=== PATIENT | male | born 1945 | race Caucasian/White ===

== ENCOUNTER 2016-10-13 11:59 | Inpatient (IN) | payer MEDICARE ==
[2016-10-13] MEDS ORDERED: IPRATROPIUM-ALBUTEROL 3 ML NEB INHALATION STA (12:28)
[2016-10-13 13:03] LABS: Partial Thromboplastin Time 24.4 sec (22.0-30.0); Prothrombin Time 10.2 sec (9.0-12.0)
[2016-10-13 13:04] LABS: ALT 47 U/L (21-72); AST 27 U/L (17-59); Alkaline Phosphatase 59 U/L (38-126); Anion Gap 10 mmol/L; Blood Urea Nitrogen 29 mg/dL (9-20); Calcium 9.9 mg/dL (8.4-10.2); Carbon Dioxide 31 mmol/L (22-30); Chloride 98 mmol/L (98-107); Glucose 157 mg/dL (74-99); Magnesium 1.9 mg/dL (1.6-2.3); Non-African American GFR(MDRD) 55 (>60 ml/min/1.73 sqM); Potassium 4.6 mmol/L (3.5-5.1); Sodium 139 mmol/L (137-145); Total Bilirubin 1.6 mg/dL (0.2-1.3); Total Protein 6.9 g/dL (6.3-8.2)
--- NOTE | 2016-10-13 13:25 | XR ---
EXAMINATION TYPE: XR chest 2V DATE OF EXAM: 10/13/2016 1:14 PM COMPARISON: 06/23/14 HISTORY: Shortness of breath TECHNIQUE: Frontal and lateral views of the chest are obtained. FINDINGS: Scattered senescent parenchymal changes noted. Hyperinflation compatible with COPD. No evidence for infiltrate. No evidence for atelectasis. Heart size is stable. Mediastinal structures are stable and grossly unremarkable. No evidence for hilar prominence. Degenerative changes dorsal spine. IMPRESSION: 1. No evidence for acute pulmonary disease.
--- NOTE | 2016-10-13 13:31 | ED ---
General Adult HPI - General Chief complaint: Shortness of Breath Stated complaint: theresa, wheezing Time Seen by Provider: 10/13/16 12:08 Source: patient, RN notes reviewed Mode of arrival: wheelchair Limitations: no limitations - History of Present Illness Initial comments: 71-year-old male presents emergency Department chief complaint shortness of breath, wheezing. Patient states she's been short of breath last 5 months ever since he's been sick. Patient states that symptoms are getting much worse at this time. Patient does see waste picker Dr. Rodriguez and recently has seen coronary care unit nurse which he had an echo, EKG and stress test. Patient states she's been seen his primary care physician who has been given shots of steroids, antibiotics with no relief. Patient saw his primary care physician today who sent emergency department. Patient denies fever, chills. Patient states he has no sinus congestion denies sore throat, ear pain. Denies any abdominal pain including nausea, vomiting, diarrhea constipation. - Related Data Home Medications Medication Instructions Recorded Confirmed Metoprolol Tartrate [Lopressor] 25 mg PO BID 06/23/14 10/13/16 Simvastatin [Simvastatin] 20 mg PO HS 06/23/14 10/13/16 Aspirin EC [Ecotrin Low Dose] 81 mg PO DAILY 10/13/16 10/13/16 Olmesartan/Hydrochlorothiazide 1 tab PO DAILY 10/13/16 10/13/16 [Benicar Hct 40-25 mg Tablet] amLODIPine [Norvasc] 5 mg PO DAILY 10/13/16 10/13/16 predniSONE See Taper PO DAILY 10/13/16 10/13/16 Allergies Allergy/AdvReac Type Severity Reaction Status Date / Time No Known Allergies Allergy Verified 10/13/16 12:14 Review of Systems ROS Statement: Those systems with pertinent positive or pertinent negative responses have been documented in the HPI. ROS Other: All systems not noted in ROS Statement are negative. Past Medical History Past Medical History: Coronary Artery Disease (CAD), Chest Pain / Angina, Hypertension, Myocardial Infarction ([place]), Pneumonia, Sleep Apnea/CPAP/BIPAP Last Myocardial Infarction Date:: 2011 History of Any Multi-Drug Resistant Organisms: None Reported Past Surgical History: Cholecystectomy, Heart Catheterization With Stent, Hernia Repair Additional Past Surgical History / Comment(s): UMBILICAL HERNIA REPAIR. Past Anesthesia/Blood Transfusion Reactions: No Reported Reaction Date of Last Stent Placement:: 2011 Past Psychological History: No Psychological Hx Reported Smoking Status: Never smoker Past Alcohol Use History: None Reported Past Drug Use History: None Reported - Past Family History Father Family Medical History: CVA/TIA, Hypertension, Myocardial Infarction ([place]) Additional Family Medical History / Comment(s): AT AGE 73-[place] Mother Family Medical History: Dementia, Renal Disease Additional Family Medical History / Comment(s): AT AGE 56 COMPLICATIONS FROM DIABETES General Exam Limitations: no limitations General appearance: alert, in no apparent distress Head exam: Present: atraumatic, normocephalic, normal inspection ENT exam: Present: normal exam, normal oropharynx, mucous membranes moist Neck exam: Present: normal inspection, full ROM. Absent: tenderness, meningismus, lymphadenopathy Respiratory exam: Present: wheezes (Bilateral and audible). Absent: normal lung sounds bilaterally, respiratory distress, rales, rhonchi, stridor Cardiovascular Exam: Present: regular rate, normal rhythm, normal heart sounds. Absent: systolic murmur, diastolic murmur, rubs, gallop, clicks Course Vital Signs 10/13/16 10/13/16 10/13/16 12:06 12:40 12:53 Temperature 98.1 F Pulse Rate 74 74 79 Respiratory 24 Rate Blood Pressure 130/93 O2 Sat by Pulse 95 Oximetry Medical Decision Making - Lab Data Result diagrams: 10/13/16 12:48 10/13/16 12:48 Lab Results 10/13/16 10/13/16 10/13/16 Range/Units 12:48 12:48 12:48 WBC 7.8 (3.8-10.6) k/uL RBC 3.62 L (4.30-5.90) m/uL Hgb 11.6 L (13.0-17.5) gm/dL Hct 33.2 L (39.0-53.0) % MCV 91.6 (80.0-100.0) fL MCH 32.1 (25.0-35.0) pg MCHC 35.0 (31.0-37.0) g/dL RDW 16.0 H (11.5-15.5) % Plt Count 286 (150-450) k/uL Neutrophils % 79 % Lymphocytes % 11 % Monocytes % 6 % Eosinophils % 2 % Basophils % 1 % Neutrophils # 6.1 (1.3-7.7) k/uL Lymphocytes # 0.9 L (1.0-4.8) k/uL Monocytes # 0.5 (0-1.0) k/uL Eosinophils # 0.2 (0-0.7) k/uL Basophils # 0.0 (0-0.2) k/uL Hyperchromasia Slight Poikilocytosis Slight PT (9.0-12.0) sec INR (<1.1) APTT (22.0-30.0) sec Sodium 139 (137-145) mmol/L Potassium 4.6 (3.5-5.1) mmol/L Chloride 98 (98-107) mmol/L Carbon Dioxide 31 H (22-30) mmol/L Anion Gap 10 mmol/L BUN 29 H (9-20) mg/dL Creatinine 1.28 H (0.66-1.25) mg/dL Est GFR (MDRD) Af Amer >60 (>60 ml/min/1.73 sqM) Est GFR (MDRD) Non-Af 55 (>60 ml/min/1.73 sqM) Glucose 157 H (74-99) mg/dL Calcium 9.9 (8.4-10.2) mg/dL Magnesium 1.9 (1.6-2.3) mg/dL Total Bilirubin 1.6 H (0.2-1.3) mg/dL AST 27 (17-59) U/L ALT 47 (21-72) U/L Alkaline Phosphatase 59 (38-126) U/L Total Creatine Kinase 135 (55-170) U/L CK-MB (CK-2) 5.1 H* (0.0-2.4) ng/mL CK-MB (CK-2) Rel Index 3.8 Troponin I 0.018 (0.000-0.034) ng/mL Total Protein 6.9 (6.3-8.2) g/dL Albumin 4.1 (3.5-5.0) g/dL 10/13/16 Range/Units 12:48 WBC (3.8-10.6) k/uL RBC (4.30-5.90) m/uL Hgb (13.0-17.5) gm/dL Hct (39.0-53.0) % MCV (80.0-100.0) fL MCH (25.0-35.0) pg MCHC (31.0-37.0) g/dL RDW (11.5-15.5) % Plt Count (150-450) k/uL Neutrophils % % Lymphocytes % % Monocytes % % Eosinophils % % Basophils % % Neutrophils # (1.3-7.7) k/uL Lymphocytes # (1.0-4.8) k/uL Monocytes # (0-1.0) k/uL Eosinophils # (0-0.7) k/uL Basophils # (0-0.2) k/uL Hyperchromasia Poikilocytosis PT 10.2 (9.0-12.0) sec INR 1.0 (<1.1) APTT 24.4 (22.0-30.0) sec Sodium (137-145) mmol/L Potassium (3.5-5.1) mmol/L Chloride (98-107) mmol/L Carbon Dioxide (22-30) mmol/L Anion Gap mmol/L BUN (9-20) mg/dL Creatinine (0.66-1.25) mg/dL Est GFR (MDRD) Af Amer (>60 ml/min/1.73 sqM) Est GFR (MDRD) Non-Af (>60 ml/min/1.73 sqM) Glucose (74-99) mg/dL Calcium (8.4-10.2) mg/dL Magnesium (1.6-2.3) mg/dL Total Bilirubin (0.2-1.3) mg/dL AST (17-59) U/L ALT (21-72) U/L Alkaline Phosphatase (38-126) U/L Total Creatine Kinase (55-170) U/L CK-MB (CK-2) (0.0-2.4) ng/mL CK-MB (CK-2) Rel Index Troponin I (0.000-0.034) ng/mL Total Protein (6.3-8.2) g/dL Albumin (3.5-5.0) g/dL Disposition Clinical Impression: COPD exacerbation, Dyspnea Disposition: ADMITTED IP TO THIS [facility] Condition: Stable
[2016-10-13 13:34] LABS: Troponin I 0.018 ng/mL (0.000-0.034)
[2016-10-13 13:35] LABS: Basophils % (A) 1 %; CHCM 36.3; Creatine Kinase MB 5.1 ng/mL (0.0-2.4); Eosinophils # (A) 0.2 k/uL (0-0.7); Eosinophils % (A) 2 %; HCT 33.2 % (39.0-53.0); HDW 3.82; HGB 11.6 gm/dL (13.0-17.5); Hyperchromasia Slight; Luc % (Auto) 1; Lymphocytes # (A) 0.9 k/uL (1.0-4.8); Lymphocytes % (A) 11 %; MCH 32.1 pg (25.0-35.0); MCV 91.6 fL (80.0-100.0); Monocytes # (A) 0.5 k/uL (0-1.0); Monocytes % (A) 6 %; Neutrophils # (A) 6.1 k/uL (1.3-7.7); Neutrophils % (A) 79 %; Poikilocytosis Slight; RBC 3.62 m/uL (4.30-5.90); WBC 7.8 k/uL (3.8-10.6); WBC (Perox) 7.63
[2016-10-13] MEDS ORDERED: methylPREDNISolone SOD SUCCI 125 MG/2 ML VIAL IV STA (13:57)
[2016-10-13] MEDS ORDERED: ONDANSETRON 4 MG/2 ML VIAL IVP PRN (14:03)
[2016-10-13] MEDS ORDERED: NALOXONE 0.4 MG/ML 1 ML VIAL IV PRN (14:03)
[2016-10-13 15:48] LABS: Hemoglobin A1C 9.5 % (4.2-6.1)
[2016-10-13] MEDS ORDERED: methylPREDNISolone SOD SUCCI 125 MG/2 ML VIAL IV SCH (16:00)
[2016-10-13] MEDS ORDERED: AZITHROMYCIN 500 MG in SODIUM CHLORIDE 0.9% 250 ML IVPB STA (16:33)
[2016-10-13] MEDS: IPRATROPIUM-ALBUTEROL 3 ML NEB INHALATION SCH ×3 (17:11→23:09)
[2016-10-13 17:30] LABS: Glucose,Whole Blood 206 mg/dL (75-99)
[2016-10-13] MEDS ORDERED: INSULIN LISPRO (humaLOG) 300 UNIT/3 ML VIAL SQ SCH (17:30)
[2016-10-13] MEDS ORDERED: IPRATROPIUM-ALBUTEROL 3 ML NEB INHALATION PRN (19:01)
[2016-10-13 19:58] LABS: Glucose,Whole Blood 342 mg/dL (75-99)
[2016-10-13 20:37] LABS: ABG Base Excess -0.7 mmol/L; ABG HCO3 23 mmol/L (21-25); ABG PCO2 34 mmHg (35-45); ABG PH 7.44 (7.35-7.45); ABG PO2 89 mmHg (83-108); ABG TCO2 24 mmol/L (19-24)
[2016-10-13] MEDS: BUDESONIDE 1 MG/2 ML NEBU INHALATION SCH (21:17)
[2016-10-13] MEDS: FORMOTEROL FUMARATE 20 MCG/2 ML NEBU INHALATION SCH (21:17)
[2016-10-13] MEDS: METOPROLOL TARTRATE 25 MG TAB PO SCH (21:49)
[2016-10-13] MEDS: HEPARIN SODIUM,PORCINE 5,000 UNIT/ML 1 ML VIAL SQ SCH (21:49)
[2016-10-13] MEDS: ATORVASTATIN 10 MG TAB PO SCH (21:49)
[2016-10-13] MEDS: INSULIN REGULAR 100 UNIT in SODIUM CHLORIDE 0.9% 100 ML IV SCH (22:19)
[2016-10-13 23:01] LABS: Glucose,Whole Blood 288 mg/dL (75-99)
[2016-10-13] MEDS: methylPREDNISolone SOD SUCCI 125 MG/2 ML VIAL IV SCH (23:27)
[2016-10-13 23:28] LABS: Glucose,Whole Blood 280 mg/dL (75-99)
[2016-10-14 00:08] LABS: Glucose,Whole Blood 241 mg/dL (75-99)
[2016-10-14 02:06] LABS: Glucose,Whole Blood 196 mg/dL (75-99)
[2016-10-14] MEDS: IPRATROPIUM-ALBUTEROL 3 ML NEB INHALATION SCH ×6 (03:21→23:27)
[2016-10-14 04:06] LABS: Glucose,Whole Blood 168 mg/dL (75-99)
[2016-10-14] MEDS: methylPREDNISolone SOD SUCCI 125 MG/2 ML VIAL IV SCH ×3 (06:01→17:35)
[2016-10-14 06:09] LABS: Glucose,Whole Blood 194 mg/dL (75-99)
[2016-10-14] MEDS: BUDESONIDE 1 MG/2 ML NEBU INHALATION SCH ×2 (07:30→19:32)
[2016-10-14] MEDS: FORMOTEROL FUMARATE 20 MCG/2 ML NEBU INHALATION SCH ×2 (07:30→19:32)
[2016-10-14] MEDS ORDERED: INSULIN LISPRO (humaLOG) 300 UNIT/3 ML VIAL SQ SCH (07:30)
[2016-10-14 08:13] LABS: Glucose,Whole Blood 182 mg/dL (75-99)
[2016-10-14 08:16] LABS: Basophils % (A) 0 %; CH 32.7; Eosinophils % (A) 0 %; HCT 32.6 % (39.0-53.0); HGB 11.3 gm/dL (13.0-17.5); Hyperchromasia Slight; Luc # (Auto) 0.03; Luc % (Auto) 0; Lymphocytes # (A) 0.5 k/uL (1.0-4.8); Lymphocytes % (A) 5 %; MCH 31.7 pg (25.0-35.0); MCHC 34.6 g/dL (31.0-37.0); MCV 91.5 fL (80.0-100.0); Mean Platelet Volume 7.4; Monocytes # (A) 0.2 k/uL (0-1.0); Monocytes % (A) 2 %; Neutrophils # (A) 8.1 k/uL (1.3-7.7); Neutrophils % (A) 92 %; Poikilocytosis Slight; RBC 3.57 m/uL (4.30-5.90); RDW 15.9 % (11.5-15.5); WBC 8.8 k/uL (3.8-10.6); WBC (Perox) 9.32
[2016-10-14 08:37] LABS: Calcium 9.4 mg/dL (8.4-10.2); Potassium 4.1 mmol/L (3.5-5.1); Total Bilirubin 1.6 mg/dL (0.2-1.3); Total Protein 6.7 g/dL (6.3-8.2)
[2016-10-14] MEDS: INSULIN LISPRO (humaLOG) 300 UNIT/3 ML VIAL SQ SCH ×3 (08:49→17:35)
[2016-10-14] MEDS: LOSARTAN 50 MG TAB PO SCH (08:49)
[2016-10-14] MEDS: METOPROLOL TARTRATE 25 MG TAB PO SCH ×2 (08:50→21:20)
[2016-10-14] MEDS: ASPIRIN 81 MG CHEW PO SCH (08:50)
[2016-10-14] MEDS: HYDROCHLOROTHIAZIDE 25 MG TAB PO SCH (08:50)
[2016-10-14] MEDS: amLODIPine 5 MG TAB PO SCH (08:50)
[2016-10-14] MEDS: FAMOTIDINE 20 MG TAB PO SCH (08:50)
[2016-10-14] MEDS: HEPARIN SODIUM,PORCINE 5,000 UNIT/ML 1 ML VIAL SQ SCH ×2 (08:51→21:20)
[2016-10-14] MEDS ORDERED: PANTOPRAZOLE 40 MG/10 ML VIAL IV SCH (09:00)
[2016-10-14] MEDS: INSULIN REGULAR 100 UNIT in SODIUM CHLORIDE 0.9% 100 ML IV SCH (09:16)
[2016-10-14 10:20] LABS: Glucose,Whole Blood 299 mg/dL (75-99)
--- NOTE | 2016-10-14 10:36 | P.CNPUL ---
History of Present Illness Consult date: 10/14/16 Reason for consult: dyspnea, COPD Chief complaint: Shortness of breath and wheezing History of present illness: This is a 71-year-old gentleman who sees Dr. Rodriguez for his underlying COPD. Has not seen Dr. Delacruz for some time. I believe his primary doctor is Dr. Isbell. Anyway he comes into the emergency department complaining of a couple days with a vacation shortness of breath coughing and wheezing. He apparently has been progressively getting worse over the last 3-4 months may be a bit longer. His been a rather subtle decline but nonetheless he hasn't been feeling well. Apparently does see a service superintendent and down had a number of tests done by the heart doctor. Also seen his primary doctor number of times. No fever no chills. No nausea vomiting or diarrhea. He did have chest congestion. Coughing up some phlegm. Is mostly white. No GI or complaints. His primary medical diagnoses include CAD chest pain angina hypertension myocardial infarction sleep apnea syndrome COPD and previous myocardial infarction. Review of Systems A 12 point review of system is positive for shortness of breath coughing wheezing and phlegm production of the pulmonary system. He's feeling a bit better today but not back to baseline. Past Medical History Past Medical History: Coronary Artery Disease (CAD), Chest Pain / Angina, COPD, Hypertension, Myocardial Infarction ([place]), Pneumonia, Sleep Apnea/CPAP/BIPAP Additional Past Medical History / Comment(s): STARTED HAD A FLU VACCINE BUT CAN' T REMEMBER WHEN HE GOT IT-CALLED PCP -NO RECORD OF HAVING IT THERE. Last Myocardial Infarction Date:: 2011 History of Any Multi-Drug Resistant Organisms: None Reported Past Surgical History: Cholecystectomy, Heart Catheterization With Stent, Hernia Repair Additional Past Surgical History / Comment(s): UMBILICAL HERNIA REPAIR.VASECTOMY Past Anesthesia/Blood Transfusion Reactions: No Reported Reaction Date of Last Stent Placement:: 2011 Past Psychological History: No Psychological Hx Reported Smoking Status: Never smoker Past Alcohol Use History: None Reported Past Drug Use History: None Reported - Past Family History Father Family Medical History: CVA/TIA, Hypertension, Myocardial Infarction ([place]) Additional Family Medical History / Comment(s): AT AGE 73-[place] Mother Family Medical History: Dementia, Renal Disease Additional Family Medical History / Comment(s): AT AGE 56 COMPLICATIONS FROM DIABETES Medications and Allergies Home Medications Medication Instructions Recorded Confirmed Type Metoprolol Tartrate [Lopressor] 25 mg PO BID 06/23/14 10/13/16 History Simvastatin [Simvastatin] 20 mg PO HS 06/23/14 10/13/16 History Aspirin EC [Ecotrin Low Dose] 81 mg PO DAILY 10/13/16 10/13/16 History Olmesartan/Hydrochlorothiazide 1 tab PO DAILY 10/13/16 10/13/16 History [Benicar Hct 40-25 mg Tablet] amLODIPine [Norvasc] 5 mg PO DAILY 10/13/16 10/13/16 History predniSONE See Taper PO DAILY 10/13/16 10/13/16 History Allergies Allergy/AdvReac Type Severity Reaction Status Date / Time No Known Allergies Allergy Verified 10/13/16 12:14 Physical Exam Osteopathic Statement: *. No significant issues noted on an osteopathic structural exam other than those noted in the History and Physical/Consult. Vitals: Vital Signs Temp Pulse Pulse Resp BP BP BP 10/14/16 08:44 96 10/14/16 08:00 94 10/14/16 07:45 92 10/14/16 07:40 92 10/14/16 07:31 88 10/14/16 07:00 97.8 F 95 20 137/82 10/14/16 03:36 96 10/14/16 03:22 96 10/13/16 23:23 92 10/13/16 23:10 88 10/13/16 21:47 97.3 F L 103 H 24 132/88 10/13/16 21:45 102 H 10/13/16 21:31 101 H 10/13/16 21:30 101 H 10/13/16 21:17 101 H 10/13/16 19:27 102 H 10/13/16 19:12 100 10/13/16 17:19 80 10/13/16 17:12 76 10/13/16 15:00 97.4 F L 69 20 131/75 10/13/16 14:11 98.5 F 80 20 120/80 Pulse Ox 10/14/16 08:44 10/14/16 08:00 10/14/16 07:45 10/14/16 07:40 10/14/16 07:31 10/14/16 07:00 97 10/14/16 03:36 10/14/16 03:22 10/13/16 23:23 10/13/16 23:10 10/13/16 21:47 96 10/13/16 21:45 10/13/16 21:31 10/13/16 21:30 10/13/16 21:17 10/13/16 19:27 10/13/16 19:12 10/13/16 17:19 10/13/16 17:12 10/13/16 15:00 97 10/13/16 14:11 96 Intake and Output 10/13/16 10/14/16 10/14/16 22:59 06:59 14:59 Intake Total 62.467 21.834 Output Total 400 Balance -337.533 21.834 Intake: Intake, IV Titration 62.467 21.834 Amount Insulin Regular 100 unit 62.467 21.834 In Sodium Chloride 0.9% 100 ml @ Titrate IV .Q0M [facility] Rx#:[id number] Output: Urine 400 Other: Voiding Method Toilet Toilet Toilet # Voids 1 No acute distress, oriented 3. HEENT examination is grossly unremarkable. Mucous membranes are moist. He is wearing nasal O2. Neck supple. Full range of motion. No adenopathy or thyromegaly. Cardiovascular examination reveals regular rhythm rate. Heart rate about 90. Is regular. S1-S2 normal. No S3-S4. No murmur. Lungs reveal some expiratory wheezes and rhonchi. Breath sounds are diminished. Slight prolongation on forced maneuver. Abdomen soft bowel sounds are heard. Extremities are intact. Results - Laboratory Findings CBC and BMP: 10/14/16 08:02 10/14/16 07:59 ABG ABG pH 7.44 (7.35-7.45) 10/13/16 20:20 ABG pCO2 34 mmHg (35-45) L 10/13/16 20:20 ABG pO2 89 mmHg (83-108) 10/13/16 20:20 ABG O2 Saturation 97.0 % (94-97) 10/13/16 20:20 PT/INR, D-dimer PT 10.2 sec (9.0-12.0) 10/13/16 12:48 INR 1.0 (<1.1) 10/13/16 12:48 Abnormal lab findings: Abnormal Labs 10/13/16 10/13/16 10/13/16 17:16 19:57 20:20 RBC Hgb Hct RDW Neutrophils # Lymphocytes # ABG pCO2 34 L Sodium Chloride BUN Creatinine Glucose POC Glucose (mg/dL) 206 H 342 H Total Bilirubin 10/13/16 10/13/16 10/14/16 22:59 23:26 00:00 RBC Hgb Hct RDW Neutrophils # Lymphocytes # ABG pCO2 Sodium Chloride BUN Creatinine Glucose POC Glucose (mg/dL) 288 H 280 H 241 H Total Bilirubin 10/14/16 10/14/16 10/14/16 02:03 03:54 06:04 RBC Hgb Hct RDW Neutrophils # Lymphocytes # ABG pCO2 Sodium Chloride BUN Creatinine Glucose POC Glucose (mg/dL) 196 H 168 H 194 H Total Bilirubin 10/14/16 10/14/16 10/14/16 07:59 08:01 08:02 RBC 3.57 L Hgb 11.3 L Hct 32.6 L RDW 15.9 H Neutrophils # 8.1 H Lymphocytes # 0.5 L ABG pCO2 Sodium 136 L Chloride 97 L BUN 37 H Creatinine 1.49 H Glucose 175 H POC Glucose (mg/dL) 182 H Total Bilirubin 1.6 H 10/14/16 10:18 RBC Hgb Hct RDW Neutrophils # Lymphocytes # ABG pCO2 Sodium Chloride BUN Creatinine Glucose POC Glucose (mg/dL) 299 H Total Bilirubin - Diagnostic Findings Chest x-ray: image reviewed (Chest x-ray medications and labs are all reviewed.) Assessment and Plan (1) COPD exacerbation Status: Acute (2) Dyspnea Status: Acute Plan: Plan The patient's medications x-rays labs are all reviewed. The patient was placed on standard COPD occasions. This will include short acting beta agonist short acting muscarinic antagonist long-acting beta agonist and inhaled corticosteroids. He should also receive systemic corticosteroids and oral antibiotic. Additional recommendations suggestions are forthcoming. Prognosis is guarded. Time with Patient: Greater than 30
[2016-10-14 12:00] VITALS: BMI 35.9
[2016-10-14 12:00] LABS: Glucose,Whole Blood 216 mg/dL (75-99)
[2016-10-14] MEDS ORDERED: AZITHROMYCIN 500 MG TAB PO SCH (12:00)
[2016-10-14 14:07] LABS: Glucose,Whole Blood 153 mg/dL (75-99)
--- NOTE | 2016-10-14 15:22 | P.HPIM ---
History of Present Illness H&P Date: 10/13/16 Chief Complaint: Respiratory failure, COPD exacerbation, severe bronchitis, hypertension, ar 71-year-old morbidly obese male of Dr. Beatty patient with past medical history of morbid obesity, COPD, diastolic congestive heart failure, history of CAD and hyperglycemia who apparently has been having worsening dyspnea and shortness of breath with cough productive dark phlegm along with worsening wheezes for the last few weeks. Patient seen Dr. Rodriguez pulmonary also seen cardiology and seen his primary care physician. Antibiotics and steroid were dispensed by his primary care physician recently where patient had dry without any Loc continued to become much sicker in the last few days. Was seen his primary care physician today and refer to the emergency department at [facility] where patient was seen and evaluated, found to have in mild respiratory distress, chest x-ray failed to show any infiltrate or pneumonia patient has CO2 retention and worsening symptoms. Patient was started on O2, updraft treatment, Solu-Medrol and antibiotic for atypical pneumonitis and admitted to the hospital with the above problem. Review of Systems Constitutional: Reports fatigue, Reports lethargy, Reports malaise, Reports weakness, Reports weight gain, Denies as per HPI, Denies anorexia, Denies chills , Denies chronic headaches, Denies chronic pain, Denies daytime sleepiness, Denies fever, Denies night sweats, Denies poor appetite, Denies sweats, Denies weight loss Eyes: bilateral as per HPI Ears: bilateral: decreased hearing Ears, nose, mouth and throat: Reports ant. neck pain, Reports nasal congestion, Reports nasal discharge, Reports sinus pain, Reports sinus pressure, Denies as per HPI, Denies bleeding gums, Denies dental pain, Denies dysphagia, Denies epistaxis, Denies headache, Denies hoarseness, Denies mouth pain, Denies neck fullness/pressure, Denies neck lump, Denies nose pain, Denies odynophagia, Denies post-nasal drip, Denies swelling in mouth, Denies swelling in throat, Denies sore throat, Denies vertigo, Denies voice changes Cardiovascular: Reports chest pain, Reports orthopnea, Reports palpitations, Denies as per HPI, Denies claudication, Denies decreased exercise tolerance, Denies dyspnea on exertion, Denies edema, Denies high blood pressure, Denies irregular heart beat, Denies leg edema, Denies lightheadedness, Denies paroxysmal nocturnal dyspnea, Denies phlebitis, Denies rapid heart beat, Denies shortness of breath, Denies syncope Respiratory: Reports congestion, Reports cough with sputum, Reports dyspnea, Reports pain on inspiration, Reports pleurisy, Reports respiratory infections, Reports sleep apnea, Reports wheezing, Denies as per HPI, Denies cough, Denies excessive sputum, Denies hemoptysis, Denies home oxygen, Denies pain, Denies snoring Gastrointestinal: Reports abdominal pain, Reports bloating, Reports change in bowel habits, Reports dyspepsia, Reports early satiety, Reports indigestion, Reports lactose intolerance, Reports loss of appetite, Denies as per HPI, Denies belching, Denies BRBPR, Denies coffee ground emesis, Denies constipation , Denies diarrhea, Denies excessive gas, Denies heartburn, Denies hematemesis, Denies hematochezia, Denies jaundice, Denies melena, Denies nausea, Denies vomiting Genitourinary: Reports nocturia, Reports urinary frequency, Reports urinary hesitancy, Denies as per HPI, Denies decreased libido, Denies difficulties fathering child, Denies discharge, Denies dysuria, Denies erectile dysfunction, Denies flank pain, Denies genital pain, Denies genital sores, Denies hematuria, Denies impotence, Denies incontinence, Denies kidney stones, Denies polyuria, Denies testicular lump, Denies testicular pain, Denies urinary retention Musculoskeletal: Reports arm numbness/tingling, Reports leg numbness/tingling, Reports limitation of motion, Reports myalgias, Reports neck pain, Reports neck stiffness, Denies as per HPI, Denies atrophy, Denies fractures, Denies frequent falls, Denies gait dysfunction, Denies hot joints, Denies loss of height, Denies low back pain, Denies morning stiffness, Denies muscle cramps, Denies muscle weakness, Denies prior amputations, Denies redness of joints, Denies shooting arm pain, Denies shooting leg pain Integumentary: Reports rash, Reports sores, Denies as per HPI, Denies acne, Denies boils, Denies brittle nails, Denies change in hair/nails, Denies color changes, Denies darkening of skin, Denies depigmentation, Denies dryness, Denies foot/leg ulcers, Denies growths, Denies hirsutism, Denies lesions, Denies onychomycosis, Denies pruritus, Denies striae, Denies unusual bruising, Denies wounds Neurological: Reports balance difficulties, Reports numbness, Reports paresthesias, Reports syncope, Reports tic, Reports tingling, Denies as per HPI , Denies aphasia, Denies ataxia, Denies burning pain, Denies change in mentation , Denies change in smell/taste, Denies change in speech, Denies confusion, Denies convulsions, Denies double vision, Denies gait dysfunction, Denies head injury, Denies headaches, Denies hearing difficulties, Denies lack of coordination, Denies loss of vision, Denies memory loss, Denies migraines, Denies motor disturbance, Denies paralysis, Denies seizures, Denies sensory deficit, Denies spasticity, Denies transient paralysis, Denies tremors, Denies vertigo, Denies weakness, Denies visual changes Psychiatric: Reports anhedonia, Reports anxiety, Reports depression, Denies as per HPI, Denies anxiety attacks, Denies change in appetite, Denies change in libido, Denies change in sleep habits, Denies confusion, Denies difficulty concentrating, Denies disorientation, Denies hallucinations, Denies hopelessness , Denies hypersomnia, Denies insomnia, Denies irritability, Denies memory loss, Denies mood swings, Denies paranoia, Denies sadness/tearfulness, Denies sleep disturbances, Denies suicidal ideation Endocrine: Reports cold intolerance, Reports excessive thirst, Reports fatigue, Reports flushing, Reports heat intolerance, Reports nocturia, Reports palpitations, Reports polydipsia, Reports polyphagia, Reports polyuria, Reports proptosis, Denies as per HPI, Denies deepening of the voice, Denies excessive sweating, Denies high blood sugars, Denies increase in ring/shoe/hat size, Denies low blood sugars, Denies recent glucocorticoid use, Denies thyroid mass, Denies weight change Hematologic/Lymphatic: Reports easy bruising, Denies as per HPI, Denies easy bleeding, Denies lymphadenopathy, Denies lymphedema, Denies thrombophilia Allergic/Immunologic: Denies as per HPI, Denies allergic rhinitis, Denies anaphylaxis, Denies angioedema, Denies gluten intolerance, Denies persistent infections, Denies seasonal allergies, Denies urticaria, Denies wheezing Past Medical History Past Medical History: Coronary Artery Disease (CAD), Chest Pain / Angina, COPD, Hypertension, Myocardial Infarction (ND), Pneumonia, Sleep Apnea/CPAP/BIPAP Additional Past Medical History / Comment(s): STARTED HAD A FLU VACCINE BUT CAN' T REMEMBER WHEN HE GOT IT-CALLED PCP -NO RECORD OF HAVING IT THERE. Last Myocardial Infarction Date:: 2011 History of Any Multi-Drug Resistant Organisms: None Reported Past Surgical History: Cholecystectomy, Heart Catheterization With Stent, Hernia Repair Additional Past Surgical History / Comment(s): UMBILICAL HERNIA REPAIR.VASECTOMY Past Anesthesia/Blood Transfusion Reactions: No Reported Reaction Date of Last Stent Placement:: 2011 Past Psychological History: No Psychological Hx Reported Smoking Status: Never smoker Past Alcohol Use History: None Reported Past Drug Use History: None Reported - Past Family History Father Family Medical History: CVA/TIA, Hypertension, Myocardial Infarction (ND) Additional Family Medical History / Comment(s): AT AGE 73-ND Mother Family Medical History: Dementia, Renal Disease Additional Family Medical History / Comment(s): AT AGE 56 COMPLICATIONS FROM DIABETES Medications and Allergies Home Medications Medication Instructions Recorded Confirmed Type Metoprolol Tartrate [Lopressor] 25 mg PO BID 06/23/14 10/13/16 History Simvastatin [Simvastatin] 20 mg PO HS 06/23/14 10/13/16 History Aspirin EC [Ecotrin Low Dose] 81 mg PO DAILY 10/13/16 10/13/16 History Olmesartan/Hydrochlorothiazide 1 tab PO DAILY 10/13/16 10/13/16 History [Benicar Hct 40-25 mg Tablet] amLODIPine [Norvasc] 5 mg PO DAILY 10/13/16 10/13/16 History predniSONE See Taper PO DAILY 10/13/16 10/13/16 History Allergies Allergy/AdvReac Type Severity Reaction Status Date / Time No Known Allergies Allergy Verified 10/13/16 12:14 Physical Exam Vitals: Vital Signs Temp Pulse Pulse Resp BP BP Pulse Ox 10/13/16 19:27 102 H 10/13/16 19:12 100 10/13/16 17:19 80 10/13/16 17:12 76 10/13/16 15:00 97.4 F L 69 20 131/75 97 10/13/16 14:11 98.5 F 80 20 120/80 96 Intake and Output 10/13/16 10/13/16 10/13/16 06:59 14:59 22:59 Other: Voiding Method Toilet - Constitutional General appearance: no average body habitus, cooperative, no disheveled, mild distress, morbidly obese, no no acute distress, no obese, no severe distress, no thin - EENT Eyes: no abnormal pupil, no anicteric sclerae, no disc margins sharp, no edentulous, no EOMI, no PERRLA, no fundus normal, no photophobia, no dentition normal, no poor dentition, no ptosis, no scleral icterus, normal appearance ENT: hard of hearing, no hearing grossly normal, no NA/AT, normal oropharynx, no other, pharyngeal erythema, no thrush, no tonsillar exudates, no tonsillar swelling Ears: bilateral: normal - Neck Neck: no lymphadenopathy, normal ROM, no other, no rigidity, no stridor, no thyromegaly Carotids: bilateral: upstroke normal Thyroid: bilateral: normal size - Respiratory Respiratory: bilateral: diminished, dullness, rales, rhonchi, wheezing, prolonged expiration, prolonged inspiration - Cardiovascular Rhythm: irregularly irregular Heart sounds: normal: S1, S2 Abnormal Heart Sounds: systolic murmur, S3 Gallop - Gastrointestinal General gastrointestinal: no absent bowel sounds, no decreased bowel sounds, distended, hepatomegaly, no hyperactive bowel sounds, normal bowel sounds, no organomegaly, no rigid, scaphoid, soft, no splenomegaly, no tenderness, no umbilical hernia, no ventral hernia - Integumentary Integumentary: no calor, no cellulitis, cyanotic, no decreased turgor, no flushed, no jaundiced, normal, no normal turgor, pale, rash, no ulcer - Neurologic Neurologic: CNII-XII intact - Musculoskeletal Musculoskeletal: gait normal, generalized weakness, strength equal bilaterally, right sided weakness - Psychiatric Psychiatric: A&O x's 3, appropriate affect Results CBC & Chem 7: 10/14/16 08:02 10/14/16 07:59 Labs: Abnormal Lab Results - Last 24 Hours (Table) 10/13/16 10/13/16 Range/Units 17:16 19:57 POC Glucose (mg/dL) 206 H 342 H (75-99) mg/dL Thrombosis Risk Factor Assmnt - DVT/VTE Prophylaxis DVT/VTE Prophylaxis: Pharmacologic Prophylaxis ordered, Mechanical Prophylaxis ordered - Choose All That Apply Each Factor Represents 1 point: Abnormal pulmonary function (COPD), Swollen legs (current) Each Risk Factor Represents 2 Points: Age 61-74 years Thrombosis Risk Factor Assessment Total Risk Factor Score: 4 Thrombosis Risk Factor Assessment Level: Moderate Risk Assessment and Plan Plan: 1 acute respiratory failure: Patient will be hospitalized continue O2 continue heavy dose of steroid IV along with steroid nebulizer, DuoNeb and pulmonary consult should consider pulmonary rehabilitation as well. 2 COPD exacerbation: With failure to outpatient treatment, patient was started on Solu-Medrol 125 mg first dose and 60 mg every 6 hours combine with DuoNeb and Pulmicort. 3 severe purulent tracheal bronchitis and early pneumonitis: With the failure to outpatient treatment direct management toward atypical bacteria, patient be started on Rocephin and Zithromax for now. 4 hypertension: Patient has been on amlodipine valsartan along with metoprolol, continue medication. 5 hyperlipidemia: Has been on simvastatin 20 mg daily with good results so far. 6 atherosclerotic heart disease: Patient had recent cardiac testing with stress and echo with no significant change since. 7 obstructive sleep apnea: Patient has been on CPAP regular basis. GI prophylaxis: Patient will be on Pepcid 20 mg daily. DVT prophylaxis: Patient will be on heparin 5000 units subcutaneous twice a day. CODE STATUS: Full code. Expectation from this admission: Patient be the hospital for more than 2 nights.
[2016-10-14] MEDS ORDERED: RX INFO: IV CONTRAST WAS GIVEN 1 EACH MISC MISCELLANE PRN (15:23)
[2016-10-14] MEDS ORDERED: AZITHROMYCIN 500 MG in SODIUM CHLORIDE 0.9% 250 ML IVPB SCH (16:00)
--- NOTE | 2016-10-14 16:11 | P.PN ---
Subjective 71-year-old morbidly obese male of Dr. Beatty patient with past medical history of morbid obesity, COPD, diastolic congestive heart failure, history of CAD and hyperglycemia who apparently has been having worsening dyspnea and shortness of breath with cough productive dark phlegm along with worsening wheezes for the last few weeks. Patient seen Dr. Rodriguez pulmonary also seen cardiology and seen his primary care physician. Antibiotics and steroid were dispensed by his primary care physician recently where patient had dry without any Loc continued to become much sicker in the last few days. Was seen his primary care physician today and refer to the emergency department at [facility] where patient was seen and evaluated, found to have in mild respiratory distress, chest x-ray failed to show any infiltrate or pneumonia patient has CO2 retention and worsening symptoms. Patient was started on O2, updraft treatment, Solu-Medrol and antibiotic for atypical pneumonitis and admitted to the hospital with the above problem. 10/14: Patient has been seen by Dr. Wang. He is currently on Solu-Medrol 60 mg IV every 6 hours. He is noted to have hyperglycemia and is on insulin drip. CAT scan of the chest has been ordered. Repeat EKG is a sinus rhythm. BUN 37 and creatinine 1.49. Objective - Vital Signs Vital signs: Vital Signs Temp 97.8 F 10/14/16 07:00 Pulse 92 10/14/16 11:20 Resp 20 10/14/16 07:00 BP 137/82 10/14/16 07:00 Pulse Ox 97 10/14/16 07:00 Intake & Output 10/13/16 10/14/16 10/14/16 18:59 06:59 18:59 Intake Total 62.467 21.834 Output Total 400 Balance -337.533 21.834 Intake: Intake, IV Titration 62.467 21.834 Amount Insulin Regular 100 unit 62.467 21.834 In Sodium Chloride 0.9% 100 ml @ Titrate IV .Q0M [facility] Rx#:[id number] Output: Urine 400 Other: Voiding Method Toilet Toilet Toilet # Voids 1 - Exam General appearance: no average body habitus, cooperative, no disheveled, mild distress, morbidly obese, no no acute distress, no obese, no severe distress, no thin - EENT Eyes: no abnormal pupil, no anicteric sclerae, no disc margins sharp, no edentulous, no EOMI, no PERRLA, no fundus normal, no photophobia, no dentition normal, no poor dentition, no ptosis, no scleral icterus, normal appearance ENT: hard of hearing, no hearing grossly normal, no NA/AT, normal oropharynx, no other, pharyngeal erythema, no thrush, no tonsillar exudates, no tonsillar swelling Ears: bilateral: normal - Neck Neck: no lymphadenopathy, normal ROM, no other, no rigidity, no stridor, no thyromegaly Carotids: bilateral: upstroke normal Thyroid: bilateral: normal size - Respiratory Respiratory: bilateral: diminished, dullness, rales, rhonchi, wheezing, prolonged expiration, prolonged inspiration - Cardiovascular Rhythm: irregularly irregular Heart sounds: normal: S1, S2 Abnormal Heart Sounds: systolic murmur, S3 Gallop - Gastrointestinal General gastrointestinal: no absent bowel sounds, no decreased bowel sounds, distended, hepatomegaly, no hyperactive bowel sounds, normal bowel sounds, no organomegaly, no rigid, scaphoid, soft, no splenomegaly, no tenderness, no umbilical hernia, no ventral hernia - Integumentary Integumentary: no calor, no cellulitis, cyanotic, no decreased turgor, no flushed, no jaundiced, normal, no normal turgor, pale, rash, no ulcer - Neurologic Neurologic: CNII-XII intact - Musculoskeletal Musculoskeletal: gait normal, generalized weakness, strength equal bilaterally, right sided weakness - Psychiatric Psychiatric: A&O x's 3, appropriate affect - Labs CBC & Chem 7: 10/14/16 08:02 10/14/16 07:59 Labs: Abnormal Lab Results - Last 24 Hours (Table) 10/13/16 10/13/16 10/13/16 Range/Units 17:16 19:57 20:20 RBC (4.30-5.90) m/uL Hgb (13.0-17.5) gm/dL Hct (39.0-53.0) % RDW (11.5-15.5) % Neutrophils # (1.3-7.7) k/uL Lymphocytes # (1.0-4.8) k/uL ABG pCO2 34 L (35-45) mmHg Sodium (137-145) mmol/L Chloride (98-107) mmol/L BUN (9-20) mg/dL Creatinine (0.66-1.25) mg/dL Glucose (74-99) mg/dL POC Glucose (mg/dL) 206 H 342 H (75-99) mg/dL Total Bilirubin (0.2-1.3) mg/dL 10/13/16 10/13/16 10/14/16 Range/Units 22:59 23:26 00:00 RBC (4.30-5.90) m/uL Hgb (13.0-17.5) gm/dL Hct (39.0-53.0) % RDW (11.5-15.5) % Neutrophils # (1.3-7.7) k/uL Lymphocytes # (1.0-4.8) k/uL ABG pCO2 (35-45) mmHg Sodium (137-145) mmol/L Chloride (98-107) mmol/L BUN (9-20) mg/dL Creatinine (0.66-1.25) mg/dL Glucose (74-99) mg/dL POC Glucose (mg/dL) 288 H 280 H 241 H (75-99) mg/dL Total Bilirubin (0.2-1.3) mg/dL 10/14/16 10/14/16 10/14/16 Range/Units 02:03 03:54 06:04 RBC (4.30-5.90) m/uL Hgb (13.0-17.5) gm/dL Hct (39.0-53.0) % RDW (11.5-15.5) % Neutrophils # (1.3-7.7) k/uL Lymphocytes # (1.0-4.8) k/uL ABG pCO2 (35-45) mmHg Sodium (137-145) mmol/L Chloride (98-107) mmol/L BUN (9-20) mg/dL Creatinine (0.66-1.25) mg/dL Glucose (74-99) mg/dL POC Glucose (mg/dL) 196 H 168 H 194 H (75-99) mg/dL Total Bilirubin (0.2-1.3) mg/dL 10/14/16 10/14/16 10/14/16 Range/Units 07:59 08:01 08:02 RBC 3.57 L (4.30-5.90) m/uL Hgb 11.3 L (13.0-17.5) gm/dL Hct 32.6 L (39.0-53.0) % RDW 15.9 H (11.5-15.5) % Neutrophils # 8.1 H (1.3-7.7) k/uL Lymphocytes # 0.5 L (1.0-4.8) k/uL ABG pCO2 (35-45) mmHg Sodium 136 L (137-145) mmol/L Chloride 97 L (98-107) mmol/L BUN 37 H (9-20) mg/dL Creatinine 1.49 H (0.66-1.25) mg/dL Glucose 175 H (74-99) mg/dL POC Glucose (mg/dL) 182 H (75-99) mg/dL Total Bilirubin 1.6 H (0.2-1.3) mg/dL 10/14/16 Range/Units 10:18 RBC (4.30-5.90) m/uL Hgb (13.0-17.5) gm/dL Hct (39.0-53.0) % RDW (11.5-15.5) % Neutrophils # (1.3-7.7) k/uL Lymphocytes # (1.0-4.8) k/uL ABG pCO2 (35-45) mmHg Sodium (137-145) mmol/L Chloride (98-107) mmol/L BUN (9-20) mg/dL Creatinine (0.66-1.25) mg/dL Glucose (74-99) mg/dL POC Glucose (mg/dL) 299 H (75-99) mg/dL Total Bilirubin (0.2-1.3) mg/dL Assessment and Plan Plan: 1 acute respiratory distress: Patient will be hospitalized continue O2 continue heavy dose of steroid IV along with steroid nebulizer, DuoNeb and pulmonary consult should consider pulmonary rehabilitation as well. CT of the chest 2 COPD exacerbation: With failure to outpatient treatment, patient was started on Solu-Medrol 125 mg first dose and 60 mg every 6 hours combine with DuoNeb and Pulmicort. 3 severe purulent tracheal bronchitis and early pneumonitis: With the failure to outpatient treatment direct management toward atypical bacteria, patient be started on Rocephin and Zithromax for now. 4 hypertension: Patient has been on amlodipine valsartan along with metoprolol, continue medication. 5 hyperlipidemia: Has been on simvastatin 20 mg daily with good results so far. 6 atherosclerotic heart disease: Patient had recent cardiac testing with stress and echo with no significant change since. 7 obstructive sleep apnea: Patient has been on CPAP regular basis. 8. Hyperglycemia secondary to possible diabetes mellitus type 2 versus side effects from steroids. GI prophylaxis: Patient will be on Pepcid 20 mg daily. DVT prophylaxis: Patient will be on heparin 5000 units subcutaneous twice a day. CODE STATUS: Full code. Discharge plan: Return home Impression and plan of care have been directed as dictated by the signing physician. Lay Elizabeth nurse practitioner acting as scribe for signing physician. Time with Patient: Greater than 30
[2016-10-14 16:33] LABS: Glucose,Whole Blood 136 mg/dL (75-99)
--- NOTE | 2016-10-14 17:48 | CT ---
EXAMINATION TYPE: CT chest wo con DATE OF EXAM: 10/14/2016 5:26 PM COMPARISON: NONE HISTORY: shortness of breath and cough CT DLP: 615.5 mGycm Automated exposure control for dose reduction was used. FINDINGS: There is patchy linear infiltrate and atelectasis in both lower lobes and slightly worse on the left side at the left lung base. There is no evidence of a pulmonary mass. There is no mediastinal adenopa thy. There are no hilar masses. There is no pericardial effusion. I see no pleural effusion. There is a small hiatal hernia. There is no evidence of aortic aneurysm. There are some coronary artery calci fication. IMPRESSION: THERE IS EVIDENCE OF BILATERAL PNEUMONIA AND ATELECTASIS AT THE LUNG BASES IN THE POSTERIOR BASAL SEG MENTS. SMALL HIATAL HERNIA. MILD ATHEROSCLEROTIC VASCULAR DISEASE.
[2016-10-14 18:12] LABS: Glucose,Whole Blood 183 mg/dL (75-99)
[2016-10-14 19:50] LABS: Glucose,Whole Blood 251 mg/dL (75-99)
[2016-10-14] MEDS: ATORVASTATIN 10 MG TAB PO SCH (21:20)
[2016-10-14 22:39] LABS: Glucose,Whole Blood 163 mg/dL (75-99)
[2016-10-15] MEDS: methylPREDNISolone SOD SUCCI 125 MG/2 ML VIAL IV SCH ×5 (00:04→23:50)
[2016-10-15 00:15] LABS: Glucose,Whole Blood 136 mg/dL (75-99)
[2016-10-15 02:24] LABS: Glucose,Whole Blood 237 mg/dL (75-99)
[2016-10-15] MEDS: INSULIN REGULAR 100 UNIT in SODIUM CHLORIDE 0.9% 100 ML IV SCH ×2 (02:47→17:39)
[2016-10-15] MEDS: IPRATROPIUM-ALBUTEROL 3 ML NEB INHALATION SCH ×6 (03:49→23:31)
[2016-10-15 04:28] LABS: Glucose,Whole Blood 208 mg/dL (75-99)
[2016-10-15 05:58] LABS: Glucose,Whole Blood 162 mg/dL (75-99)
[2016-10-15] MEDS: BUDESONIDE 1 MG/2 ML NEBU INHALATION SCH ×2 (07:39→20:05)
[2016-10-15] MEDS: FORMOTEROL FUMARATE 20 MCG/2 ML NEBU INHALATION SCH ×3 (07:39→20:15)
[2016-10-15 08:12] LABS: Glucose,Whole Blood 161 mg/dL (75-99)
[2016-10-15] MEDS: INSULIN LISPRO (humaLOG) 300 UNIT/3 ML VIAL SQ SCH ×3 (08:23→17:39)
[2016-10-15] MEDS: HEPARIN SODIUM,PORCINE 5,000 UNIT/ML 1 ML VIAL SQ SCH ×2 (08:24→20:52)
[2016-10-15] MEDS: PANTOPRAZOLE 40 MG TABLET PO SCH (08:24)
[2016-10-15] MEDS: LOSARTAN 50 MG TAB PO SCH (08:26)
[2016-10-15] MEDS: ASPIRIN 81 MG CHEW PO SCH (08:26)
[2016-10-15] MEDS: FAMOTIDINE 20 MG TAB PO SCH (08:27)
[2016-10-15] MEDS: HYDROCHLOROTHIAZIDE 25 MG TAB PO SCH (08:27)
[2016-10-15] MEDS: amLODIPine 5 MG TAB PO SCH (08:27)
[2016-10-15] MEDS: METOPROLOL TARTRATE 25 MG TAB PO SCH ×2 (08:27→20:52)
[2016-10-15] MEDS ORDERED: AZITHROMYCIN 500 MG TAB PO SCH (09:00)
[2016-10-15] MEDS ORDERED: LEVOFLOXACIN 750 MG TAB PO SCH (09:00)
--- NOTE | 2016-10-15 09:14 | P.PN ---
Subjective 71-year-old morbidly obese male of Dr. Beatty patient with past medical history of morbid obesity, COPD, diastolic congestive heart failure, history of CAD and hyperglycemia who apparently has been having worsening dyspnea and shortness of breath with cough productive dark phlegm along with worsening wheezes for the last few weeks. Patient seen Dr. Rodriguez pulmonary also seen cardiology and seen his primary care physician. Antibiotics and steroid were dispensed by his primary care physician recently where patient had dry without any Loc continued to become much sicker in the last few days. Was seen his primary care physician today and refer to the emergency department at [facility] where patient was seen and evaluated, found to have in mild respiratory distress, chest x-ray failed to show any infiltrate or pneumonia patient has CO2 retention and worsening symptoms. Patient was started on O2, updraft treatment, Solu-Medrol and antibiotic for atypical pneumonitis and admitted to the hospital with the above problem. 10/14: Patient has been seen by Dr. Wang. He is currently on Solu-Medrol 60 mg IV every 6 hours. He is noted to have hyperglycemia and is on insulin drip. CAT scan of the chest has been ordered. Repeat EKG is a sinus rhythm. BUN 37 and creatinine 1.49. 10/15: CAT scan of the chest showed bilateral pneumonia and atelectasis at the lung bases in the posterior basal segments. Small hiatal hernia and mild atherosclerotic vascular disease. Patient does not feel he has been choking but he does wake up in the night coughing and history of gastric reflux. Esophagram ordered for Monday to assess for reflux and aspiration. Antibiotics switched to Zosyn and Levaquin. Blood sugars have been running 160 to 208. Morning lab work is pending. Objective - Vital Signs Vital signs: Vital Signs Temp 97.1 F L 10/14/16 19:15 Pulse 88 10/15/16 07:53 Resp 22 10/14/16 19:15 BP 113/66 10/14/16 19:15 Pulse Ox 96 10/15/16 07:42 Intake & Output 10/14/16 10/15/16 10/15/16 18:59 06:59 18:59 Intake Total 66.809 69.324 Output Total 700 350 Balance -633.191 -280.676 Weight 113.398 kg Intake: Intake, IV Titration 66.809 69.324 Amount Insulin Regular 100 unit 66.809 69.324 In Sodium Chloride 0.9% 100 ml @ Titrate IV .Q0M [facility] Rx#:[id number] Output: Urine 700 350 Other: Voiding Method Toilet Toilet Urinal # Voids 1 - Exam General appearance: no average body habitus, cooperative, no disheveled, mild distress, morbidly obese, no no acute distress, no obese, no severe distress, no thin - EENT Eyes: no abnormal pupil, no anicteric sclerae, no disc margins sharp, no edentulous, no EOMI, no PERRLA, no fundus normal, no photophobia, no dentition normal, no poor dentition, no ptosis, no scleral icterus, normal appearance ENT: hard of hearing, no hearing grossly normal, no NA/AT, normal oropharynx, no other, pharyngeal erythema, no thrush, no tonsillar exudates, no tonsillar swelling Ears: bilateral: normal - Neck Neck: no lymphadenopathy, normal ROM, no other, no rigidity, no stridor, no thyromegaly Carotids: bilateral: upstroke normal Thyroid: bilateral: normal size - Respiratory Respiratory: bilateral: diminished, dullness, rales, rhonchi, wheezing, prolonged expiration, prolonged inspiration - Cardiovascular Rhythm: irregularly irregular Heart sounds: normal: S1, S2 Abnormal Heart Sounds: systolic murmur, S3 Gallop - Gastrointestinal General gastrointestinal: no absent bowel sounds, no decreased bowel sounds, distended, hepatomegaly, no hyperactive bowel sounds, normal bowel sounds, no organomegaly, no rigid, scaphoid, soft, no splenomegaly, no tenderness, no umbilical hernia, no ventral hernia - Integumentary Integumentary: no calor, no cellulitis, cyanotic, no decreased turgor, no flushed, no jaundiced, normal, no normal turgor, pale, rash, no ulcer - Neurologic Neurologic: CNII-XII intact - Musculoskeletal Musculoskeletal: gait normal, generalized weakness, strength equal bilaterally, right sided weakness - Psychiatric Psychiatric: A&O x's 3, appropriate affect - Labs CBC & Chem 7: 10/14/16 08:02 10/14/16 07:59 Labs: Abnormal Lab Results - Last 24 Hours (Table) 10/14/16 10/14/16 10/14/16 Range/Units 07:59 08:01 08:02 RBC 3.57 L (4.30-5.90) m/uL Hgb 11.3 L (13.0-17.5) gm/dL Hct 32.6 L (39.0-53.0) % RDW 15.9 H (11.5-15.5) % Neutrophils # 8.1 H (1.3-7.7) k/uL Lymphocytes # 0.5 L (1.0-4.8) k/uL Sodium 136 L (137-145) mmol/L Chloride 97 L (98-107) mmol/L BUN 37 H (9-20) mg/dL Creatinine 1.49 H (0.66-1.25) mg/dL Glucose 175 H (74-99) mg/dL POC Glucose (mg/dL) 182 H (75-99) mg/dL Total Bilirubin 1.6 H (0.2-1.3) mg/dL 10/14/16 10/14/16 10/14/16 Range/Units 10:18 11:56 13:54 RBC (4.30-5.90) m/uL Hgb (13.0-17.5) gm/dL Hct (39.0-53.0) % RDW (11.5-15.5) % Neutrophils # (1.3-7.7) k/uL Lymphocytes # (1.0-4.8) k/uL Sodium (137-145) mmol/L Chloride (98-107) mmol/L BUN (9-20) mg/dL Creatinine (0.66-1.25) mg/dL Glucose (74-99) mg/dL POC Glucose (mg/dL) 299 H 216 H 153 H (75-99) mg/dL Total Bilirubin (0.2-1.3) mg/dL 10/14/16 10/14/16 10/14/16 Range/Units 16:30 18:07 19:48 RBC (4.30-5.90) m/uL Hgb (13.0-17.5) gm/dL Hct (39.0-53.0) % RDW (11.5-15.5) % Neutrophils # (1.3-7.7) k/uL Lymphocytes # (1.0-4.8) k/uL Sodium (137-145) mmol/L Chloride (98-107) mmol/L BUN (9-20) mg/dL Creatinine (0.66-1.25) mg/dL Glucose (74-99) mg/dL POC Glucose (mg/dL) 136 H 183 H 251 H (75-99) mg/dL Total Bilirubin (0.2-1.3) mg/dL 10/14/16 10/15/16 10/15/16 Range/Units 22:18 00:03 02:04 RBC (4.30-5.90) m/uL Hgb (13.0-17.5) gm/dL Hct (39.0-53.0) % RDW (11.5-15.5) % Neutrophils # (1.3-7.7) k/uL Lymphocytes # (1.0-4.8) k/uL Sodium (137-145) mmol/L Chloride (98-107) mmol/L BUN (9-20) mg/dL Creatinine (0.66-1.25) mg/dL Glucose (74-99) mg/dL POC Glucose (mg/dL) 163 H 136 H 237 H (75-99) mg/dL Total Bilirubin (0.2-1.3) mg/dL 10/15/16 10/15/16 Range/Units 04:08 05:52 RBC (4.30-5.90) m/uL Hgb (13.0-17.5) gm/dL Hct (39.0-53.0) % RDW (11.5-15.5) % Neutrophils # (1.3-7.7) k/uL Lymphocytes # (1.0-4.8) k/uL Sodium (137-145) mmol/L Chloride (98-107) mmol/L BUN (9-20) mg/dL Creatinine (0.66-1.25) mg/dL Glucose (74-99) mg/dL POC Glucose (mg/dL) 208 H 162 H (75-99) mg/dL Total Bilirubin (0.2-1.3) mg/dL Assessment and Plan Plan: 1 acute respiratory distress due to bilateral pneumonia, possible aspiration pneumonia and COPD exacerbation: Patient will be hospitalized continue O2 continue heavy dose of steroid IV along with steroid nebulizer, DuoNeb and pulmonary consult should consider pulmonary rehabilitation as well. CT of the chest as above. Antibiotics changed to Zosyn and Levaquin. 2 COPD exacerbation: With failure to outpatient treatment, continue Solu-Medrol 60 mg every 6 hours combine with DuoNeb and Pulmicort. 3 severe purulent tracheal bronchitis and early pneumonitis: With the failure to outpatient treatment direct management toward atypical bacteria, patient be started on Rocephin and Zithromax for now. 4 hypertension: Patient has been on amlodipine valsartan along with metoprolol, continue medication. 5 hyperlipidemia: Has been on simvastatin 20 mg daily with good results so far. 6 atherosclerotic heart disease: Patient had recent cardiac testing with stress and echo with no significant change since. 7 obstructive sleep apnea: Patient has been on CPAP regular basis. 8. Hyperglycemia secondary to possible diabetes mellitus type 2 versus side effects from steroids. Continue insulin. GI prophylaxis: Patient will be on Pepcid 20 mg daily. DVT prophylaxis: Patient will be on heparin 5000 units subcutaneous twice a day. CODE STATUS: Full code. Discharge plan: Return home Impression and plan of care have been directed as dictated by the signing physician. Lay Elizabeth nurse practitioner acting as scribe for signing physician. Time with Patient: Greater than 30
[2016-10-15] MEDS: PIPERACILLIN-TAZOBACTAM 3.375 GM in DEXTROSE/WATER 1 50ML.BAG IVPB SCH ×3 (09:43→23:51)
[2016-10-15 10:08] LABS: Anisocytosis Slight; Basophils % (A) 0 %; CH 32.8; CHCM 35.3; Calcium 9.3 mg/dL (8.4-10.2); Eosinophils % (A) 0 %; HCT 32.5 % (39.0-53.0); HGB 10.9 gm/dL (13.0-17.5); Luc # (Auto) 0.15; Luc % (Auto) 1; Lymphocytes # (A) 0.5 k/uL (1.0-4.8); Lymphocytes % (A) 3 %; MCH 31.5 pg (25.0-35.0); MCHC 33.7 g/dL (31.0-37.0); MCV 93.5 fL (80.0-100.0); Mean Platelet Volume 6.9; Monocytes # (A) 0.4 k/uL (0-1.0); Monocytes % (A) 3 %; Neutrophils # (A) 15.6 k/uL (1.3-7.7); Neutrophils % (A) 93 %; Poikilocytosis Slight; Potassium 3.9 mmol/L (3.5-5.1); RBC 3.47 m/uL (4.30-5.90); RDW 16.2 % (11.5-15.5); Total Bilirubin 1.3 mg/dL (0.2-1.3); Total Protein 6.7 g/dL (6.3-8.2); WBC 16.7 k/uL (3.8-10.6); WBC (Perox) 17.38
[2016-10-15 10:13] LABS: Glucose,Whole Blood 386 mg/dL (75-99)
[2016-10-15 12:01] LABS: Glucose,Whole Blood 266 mg/dL (75-99)
--- NOTE | 2016-10-15 12:53 | P.PN ---
Subjective Progress note dated 10/07/2016 this is a 71-year-old male who sees my partner for his COPD and also sees Dr. Isbell as his primary. Comes into the emergency department complaining of 2 or 3 days of increasing shortness of breath coughing and wheezing. The patient is doing better. Chest x-ray showed what appears to be bibasilar atelectasis or pneumonia confirmed by computed tomography scan. Anyway he is improved. Probably at least another day here in the hospital and/or not to be discharged until Monday. States he still short of breath. Coughing a bit.. Producing some phlegm. No fever no chills. No nausea vomiting or diarrhea. He does have a history of underlying sick COPD as well as history of CAD angina pectoris hypertension myocardial infarction sleep apnea syndrome and previous admissions for COPD. Objective - Vital Signs Vital signs: Vital Signs Temp 97.6 F 10/15/16 07:00 Pulse 90 10/15/16 11:53 Resp 18 10/15/16 07:00 BP 122/70 10/15/16 07:00 Pulse Ox 96 10/15/16 07:42 Intake & Output 10/14/16 10/15/16 10/15/16 18:59 06:59 18:59 Intake Total 66.809 69.324 18.200 Output Total 700 350 Balance -633.191 -280.676 18.200 Weight 113.398 kg Intake: Intake, IV Titration 66.809 69.324 18.200 Amount Insulin Regular 100 unit 66.809 69.324 18.200 In Sodium Chloride 0.9% 100 ml @ Titrate IV .Q0M [facility] Rx#:[id number] Output: Urine 700 350 Other: Voiding Method Toilet Toilet Toilet Urinal Urinal # Voids 1 - Exam No acute distress, oriented 3. HEENT examination is grossly unremarkable. Mixed membranes are moist. No oral lesions. Supple. Full range of motion. No adenopathy. Cardio vascular examination reveals regular rhythm rate. Heart sounds are distant. S1-S2 normal. Not tachycardic. Lungs reveal a few scattered rhonchi. Breath sounds diminished. There is prolongation on forced maneuver. Abdomen soft bowel sounds are heard. Extremities are intact. - Labs CBC & Chem 7: 10/15/16 08:44 10/15/16 08:44 Labs: Abnormal Lab Results - Last 24 Hours (Table) 10/14/16 10/14/16 10/14/16 Range/Units 13:54 16:30 18:07 WBC (3.8-10.6) k/uL RBC (4.30-5.90) m/uL Hgb (13.0-17.5) gm/dL Hct (39.0-53.0) % RDW (11.5-15.5) % Neutrophils # (1.3-7.7) k/uL Lymphocytes # (1.0-4.8) k/uL Sodium (137-145) mmol/L Chloride (98-107) mmol/L BUN (9-20) mg/dL Creatinine (0.66-1.25) mg/dL Glucose (74-99) mg/dL POC Glucose (mg/dL) 153 H 136 H 183 H (75-99) mg/dL 10/14/16 10/14/16 10/15/16 Range/Units 19:48 22:18 00:03 WBC (3.8-10.6) k/uL RBC (4.30-5.90) m/uL Hgb (13.0-17.5) gm/dL Hct (39.0-53.0) % RDW (11.5-15.5) % Neutrophils # (1.3-7.7) k/uL Lymphocytes # (1.0-4.8) k/uL Sodium (137-145) mmol/L Chloride (98-107) mmol/L BUN (9-20) mg/dL Creatinine (0.66-1.25) mg/dL Glucose (74-99) mg/dL POC Glucose (mg/dL) 251 H 163 H 136 H (75-99) mg/dL 10/15/16 10/15/16 10/15/16 Range/Units 02:04 04:08 05:52 WBC (3.8-10.6) k/uL RBC (4.30-5.90) m/uL Hgb (13.0-17.5) gm/dL Hct (39.0-53.0) % RDW (11.5-15.5) % Neutrophils # (1.3-7.7) k/uL Lymphocytes # (1.0-4.8) k/uL Sodium (137-145) mmol/L Chloride (98-107) mmol/L BUN (9-20) mg/dL Creatinine (0.66-1.25) mg/dL Glucose (74-99) mg/dL POC Glucose (mg/dL) 237 H 208 H 162 H (75-99) mg/dL 10/15/16 10/15/16 10/15/16 Range/Units 08:11 08:44 08:44 WBC 16.7 H (3.8-10.6) k/uL RBC 3.47 L (4.30-5.90) m/uL Hgb 10.9 L (13.0-17.5) gm/dL Hct 32.5 L (39.0-53.0) % RDW 16.2 H (11.5-15.5) % Neutrophils # 15.6 H (1.3-7.7) k/uL Lymphocytes # 0.5 L (1.0-4.8) k/uL Sodium 136 L (137-145) mmol/L Chloride 97 L (98-107) mmol/L BUN 46 H (9-20) mg/dL Creatinine 1.49 H (0.66-1.25) mg/dL Glucose 173 H (74-99) mg/dL POC Glucose (mg/dL) 161 H (75-99) mg/dL 10/15/16 10/15/16 Range/Units 10:12 11:57 WBC (3.8-10.6) k/uL RBC (4.30-5.90) m/uL Hgb (13.0-17.5) gm/dL Hct (39.0-53.0) % RDW (11.5-15.5) % Neutrophils # (1.3-7.7) k/uL Lymphocytes # (1.0-4.8) k/uL Sodium (137-145) mmol/L Chloride (98-107) mmol/L BUN (9-20) mg/dL Creatinine (0.66-1.25) mg/dL Glucose (74-99) mg/dL POC Glucose (mg/dL) 386 H 266 H (75-99) mg/dL Assessment and Plan (1) COPD exacerbation Status: Acute (2) Dyspnea Status: Acute Plan: Plan The patient's medications x-rays labs are all reviewed. The patient was placed on standard COPD occasions. This will include short acting beta agonist short acting muscarinic antagonist long-acting beta agonist and inhaled corticosteroids. He should also receive systemic corticosteroids and oral antibiotic. Additional recommendations suggestions are forthcoming. Prognosis is guarded. Plan dated 10/07/2016 The patient's on all the appropriate medications. CAT scan is reviewed. X- rays are reviewed. Possible discharge tomorrow or Monday. We'll continue to follow. Prognosis is generally good. Time with Patient: Less than 30
[2016-10-15 14:17] LABS: Glucose,Whole Blood 146 mg/dL (75-99)
[2016-10-15 16:27] LABS: Glucose,Whole Blood 77 mg/dL (75-99)
[2016-10-15 17:39] LABS: Glucose,Whole Blood 156 mg/dL (75-99)
[2016-10-15 20:03] LABS: Glucose,Whole Blood 235 mg/dL (75-99)
[2016-10-15] MEDS: ATORVASTATIN 10 MG TAB PO SCH (20:52)
[2016-10-15 22:13] LABS: Glucose,Whole Blood 156 mg/dL (75-99)
[2016-10-15 23:52] LABS: Glucose,Whole Blood 108 mg/dL (75-99)
[2016-10-16 01:48] LABS: Glucose,Whole Blood 106 mg/dL (75-99)
[2016-10-16] MEDS: IPRATROPIUM-ALBUTEROL 3 ML NEB INHALATION SCH ×6 (03:31→23:32)
[2016-10-16 04:15] LABS: Glucose,Whole Blood 229 mg/dL (75-99)
[2016-10-16 05:50] LABS: Glucose,Whole Blood 203 mg/dL (75-99)
[2016-10-16] MEDS: methylPREDNISolone SOD SUCCI 125 MG/2 ML VIAL IV SCH ×2 (06:04→12:55)
[2016-10-16 07:39] LABS: Glucose,Whole Blood 168 mg/dL (75-99)
[2016-10-16 07:50] LABS: Potassium 3.6 mmol/L (3.5-5.1); Total Bilirubin 1.1 mg/dL (0.2-1.3); Total Protein 6.1 g/dL (6.3-8.2)
[2016-10-16] MEDS: HYDROCHLOROTHIAZIDE 25 MG TAB PO SCH (08:00)
[2016-10-16] MEDS: INSULIN LISPRO (humaLOG) 300 UNIT/3 ML VIAL SQ SCH ×3 (08:00→17:42)
[2016-10-16] MEDS: METOPROLOL TARTRATE 25 MG TAB PO SCH (08:00)
[2016-10-16] MEDS: ASPIRIN 81 MG CHEW PO SCH (08:01)
[2016-10-16] MEDS: amLODIPine 5 MG TAB PO SCH (08:01)
[2016-10-16] MEDS: PANTOPRAZOLE 40 MG TABLET PO SCH (08:01)
[2016-10-16] MEDS: HEPARIN SODIUM,PORCINE 5,000 UNIT/ML 1 ML VIAL SQ SCH ×2 (08:01→22:05)
[2016-10-16] MEDS: LOSARTAN 50 MG TAB PO SCH (08:01)
[2016-10-16] MEDS: PIPERACILLIN-TAZOBACTAM 3.375 GM in DEXTROSE/WATER 1 50ML.BAG IVPB SCH ×2 (08:02→15:42)
[2016-10-16 08:24] LABS: Basophils % (A) 0 %; CH 32.6; CHCM 34.9; Eosinophils % (A) 0 %; HCT 33.1 % (39.0-53.0); HDW 3.52; HGB 11.1 gm/dL (13.0-17.5); Luc # (Auto) 0.12; Luc % (Auto) 1; Lymphocytes # (A) 0.5 k/uL (1.0-4.8); Lymphocytes % (A) 3 %; MCH 31.4 pg (25.0-35.0); MCHC 33.4 g/dL (31.0-37.0); MCV 94.1 fL (80.0-100.0); Mean Platelet Volume 6.4; Monocytes # (A) 0.5 k/uL (0-1.0); Monocytes % (A) 3 %; Neutrophils # (A) 15.5 k/uL (1.3-7.7); Neutrophils % (A) 93 %; Poikilocytosis Slight; RBC 3.52 m/uL (4.30-5.90); RDW 15.9 % (11.5-15.5); WBC 16.7 k/uL (3.8-10.6); WBC (Perox) 17.77
[2016-10-16] MEDS: BUDESONIDE 1 MG/2 ML NEBU INHALATION SCH (09:17)
[2016-10-16 10:23] LABS: Glucose,Whole Blood 244 mg/dL (75-99)
--- NOTE | 2016-10-16 11:39 | P.PN ---
Subjective Progress note dated 10/15/2016 this is a 71-year-old male who sees my partner for his COPD and also sees Dr. Isbell as his primary. Comes into the emergency department complaining of 2 or 3 days of increasing shortness of breath coughing and wheezing. The patient is doing better. Chest x-ray showed what appears to be bibasilar atelectasis or pneumonia confirmed by computed tomography scan. Anyway he is improved. Probably at least another day here in the hospital and/or not to be discharged until Monday. States he still short of breath. Coughing a bit.. Producing some phlegm. No fever no chills. No nausea vomiting or diarrhea. He does have a history of underlying sick COPD as well as history of CAD angina pectoris hypertension myocardial infarction sleep apnea syndrome and previous admissions for COPD. Progress note dated 10/16/2016 This is a 71-year-old minute with a diagnosis of COPD exacerbation. Each day he feels a bit better. The patient is being treated for COPD exacerbation as well as paratracheal bronchitis and/or bronchopneumonia. Probably another day and he'll be ready for discharge. He sees Dr. Isbell as his primary doctor is sees my partner as his trauma surgeon. His biggest biggest complaints of shortness of breath. Still has cough and some chest congestion. Not bringing up much phlegm now. Not coughing up any blood. No fever no chills. No nausea vomiting or diarrhea. Objective - Vital Signs Vital signs: Vital Signs Temp 98.6 F 10/16/16 07:00 Pulse 99 10/16/16 07:00 Resp 18 10/16/16 07:00 BP 124/80 10/16/16 07:00 Pulse Ox 92 L 10/16/16 07:00 Intake & Output 10/15/16 10/16/16 10/16/16 18:59 06:59 18:59 Intake Total 129.667 116.375 19.683 Balance 129.667 116.375 19.683 Intake: IV 22 Insulin Regular 100 unit 22 In Sodium Chloride 0.9% 100 ml @ Titrate IV .Q0M [facility] Rx#:[id number] Intake, IV Titration 129.667 94.375 19.683 Amount Insulin Regular 100 unit 79.667 44.375 19.683 In Sodium Chloride 0.9% 100 ml @ Titrate IV .Q0M [facility] Rx#:[id number] Piperacillin-Tazobactam 3 50 50 .375 gm In Dextrose/Water 1 50ml.bag @ 12.5 mls/hr IVPB Q8HR [facility] Rx#: [id number] Other: Voiding Method Toilet Toilet Urinal Urinal # Voids 3 - Exam No acute distress, oriented 3. HEENT examination is grossly unremarkable. Mixed membranes are moist. No oral lesions. Supple. Full range of motion. No adenopathy. Cardio vascular examination reveals regular rhythm rate. Heart sounds are distant. S1-S2 normal. Not tachycardic. Lungs reveal a few scattered rhonchi. Breath sounds diminished. There is prolongation on forced maneuver. Breath sounds have improved. They're better than they were yesterday. Abdomen soft bowel sounds are heard. Extremities are intact. - Labs CBC & Chem 7: 10/16/16 07:00 10/16/16 07:00 Labs: Abnormal Lab Results - Last 24 Hours (Table) 10/15/16 10/15/16 10/15/16 Range/Units 11:57 14:01 17:37 WBC (3.8-10.6) k/uL RBC (4.30-5.90) m/uL Hgb (13.0-17.5) gm/dL Hct (39.0-53.0) % RDW (11.5-15.5) % Neutrophils # (1.3-7.7) k/uL Lymphocytes # (1.0-4.8) k/uL BUN (9-20) mg/dL Creatinine (0.66-1.25) mg/dL Glucose (74-99) mg/dL POC Glucose (mg/dL) 266 H 146 H 156 H (75-99) mg/dL Total Protein (6.3-8.2) g/dL 10/15/16 10/15/16 10/15/16 Range/Units 20:02 22:12 23:51 WBC (3.8-10.6) k/uL RBC (4.30-5.90) m/uL Hgb (13.0-17.5) gm/dL Hct (39.0-53.0) % RDW (11.5-15.5) % Neutrophils # (1.3-7.7) k/uL Lymphocytes # (1.0-4.8) k/uL BUN (9-20) mg/dL Creatinine (0.66-1.25) mg/dL Glucose (74-99) mg/dL POC Glucose (mg/dL) 235 H 156 H 108 H (75-99) mg/dL Total Protein (6.3-8.2) g/dL 10/16/16 10/16/16 10/16/16 Range/Units 01:46 04:13 05:49 WBC (3.8-10.6) k/uL RBC (4.30-5.90) m/uL Hgb (13.0-17.5) gm/dL Hct (39.0-53.0) % RDW (11.5-15.5) % Neutrophils # (1.3-7.7) k/uL Lymphocytes # (1.0-4.8) k/uL BUN (9-20) mg/dL Creatinine (0.66-1.25) mg/dL Glucose (74-99) mg/dL POC Glucose (mg/dL) 106 H 229 H 203 H (75-99) mg/dL Total Protein (6.3-8.2) g/dL 10/16/16 10/16/16 10/16/16 Range/Units 07:00 07:00 07:38 WBC 16.7 H (3.8-10.6) k/uL RBC 3.52 L (4.30-5.90) m/uL Hgb 11.1 L (13.0-17.5) gm/dL Hct 33.1 L (39.0-53.0) % RDW 15.9 H (11.5-15.5) % Neutrophils # 15.5 H (1.3-7.7) k/uL Lymphocytes # 0.5 L (1.0-4.8) k/uL BUN 52 H (9-20) mg/dL Creatinine 1.73 H (0.66-1.25) mg/dL Glucose 168 H (74-99) mg/dL POC Glucose (mg/dL) 168 H (75-99) mg/dL Total Protein 6.1 L (6.3-8.2) g/dL 10/16/16 Range/Units 10:22 WBC (3.8-10.6) k/uL RBC (4.30-5.90) m/uL Hgb (13.0-17.5) gm/dL Hct (39.0-53.0) % RDW (11.5-15.5) % Neutrophils # (1.3-7.7) k/uL Lymphocytes # (1.0-4.8) k/uL BUN (9-20) mg/dL Creatinine (0.66-1.25) mg/dL Glucose (74-99) mg/dL POC Glucose (mg/dL) 244 H (75-99) mg/dL Total Protein (6.3-8.2) g/dL Assessment and Plan (1) COPD exacerbation Status: Acute (2) Dyspnea Status: Acute Plan: Plan The patient's medications x-rays labs are all reviewed. The patient was placed on standard COPD occasions. This will include short acting beta agonist short acting muscarinic antagonist long-acting beta agonist and inhaled corticosteroids. He should also receive systemic corticosteroids and oral antibiotic. Additional recommendations suggestions are forthcoming. Prognosis is guarded. Plan dated 10/07/2016 The patient's on all the appropriate medications. CAT scan is reviewed. X- rays are reviewed. Possible discharge tomorrow or Monday. We'll continue to follow. Prognosis is generally good. Plan dated 10/16/2016 The patient is doing better. Likely discharge in the morning. His breathing has improved. Less cough. No few and sputum production. Less wheezing. Still but short of breath with exertion. His medications x-rays and labs are all reviewed. Time with Patient: Less than 30
[2016-10-16 11:59] LABS: Glucose,Whole Blood 166 mg/dL (75-99)
[2016-10-16 14:13] LABS: Glucose,Whole Blood 199 mg/dL (75-99)
[2016-10-16 15:58] LABS: Glucose,Whole Blood 174 mg/dL (75-99)
[2016-10-16 17:38] LABS: Glucose,Whole Blood 137 mg/dL (75-99)
[2016-10-16] MEDS: INSULIN REGULAR 100 UNIT in SODIUM CHLORIDE 0.9% 100 ML IV SCH (17:41)
[2016-10-16] MEDS: METOPROLOL TARTRATE 50 MG TAB PO SCH (18:22)
--- NOTE | 2016-10-16 18:22 | CONS ---
DATE OF CONSULTATION: Mr. Amato is a patient of Dr. Ramos and Dr. Rodriguez and Dr. Isbell. He is being admitted for chronic obstructive pulmonary disease exacerbation with purulent tracheobronchitis. Cardiology was consulted today because he started having a rapid heartbeat on telemetry. At that time, according to the nurse, he was short of breath. The patient stated he was having tightness in the chest. On detailed questioning, he says he has had recurrent episodes of tightness almost on a daily basis for the last 5 months that telemetry shows supraventricular tachycardia consistent with AV trip re-entry with terminal P waves. This terminated spontaneously. It occurred on metoprolol 25 mg twice daily. Otherwise at this time he is in sinus rhythm. His tachycardia was terminated spontaneously. He is lying flat in bed. He looks good. He denies any chest discomfort. No shortness of breath or orthopnea, or PND at this time. He has a little bit of cough now. He is on IV antibiotics. Past history of COPD, hypertension, dyslipidemia, atherosclerotic heart disease. REVIEW OF SYSTEMS: At this time he does not have any fever, chills, or rigors. He does have a cough, phlegm expectoration. No nausea, vomiting, or diarrhea. No hematuria or dysuria. No strokes or seizures. No skin lesions. No musculoskeletal complaints. On examination, his blood pressure is 120/80 mmHg, His pulse rate is in the 80s. Head and neck examination is normal. Heart sounds S1, S2 are soft. LUNGS: Decreased breath sounds bilaterally with bilateral rhonchorous breath sounds. ABDOMEN: Soft, nontender. EXTREMITIES: Warm. No edema. His medications reviewed and include: 1. Aspirin. 2. Atorvastatin. 3. Inhalers. 4. Insulin. 5. Levaquin. 6. Losartan 150 mg daily. 7. Metoprolol 25 mg twice daily. 8. Amlodipine 5 mg daily. 9. Hydrochlorothiazide. IMPRESSION: 1. 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 2. Hypertension. 3. Chronic obstructive pulmonary disease exacerbation/tracheobronchitis. The patient has recurrent episodes of this based upon his symptoms. He complains of tightness in his chest whenever he gets this and he is also short of breath. He has never experienced syncope. He is breaking through on metoprolol 25 mg twice daily. SUGGEST: Stop hydrochlorothiazide. Increase metoprolol to 50 mg twice daily if he can tolerate it. The other choice is to use Cardizem, but he is already on amlodipine. A TSH level will be ordered and after his lung infection has been addressed and taken care, in the future, electively he should proceed with an EP study and SVT ablation because he has symptomatic SVT without complaining of any palpitations, but has recurrent shortness of breath and chest tightness and is breaking through on beta blockers. I will arrange this test for him.
[2016-10-16] MEDS: SYMBICORT 160-4.5 MCG INHALER INHALATION SCH (19:24)
[2016-10-16 20:46] LABS: Glucose,Whole Blood 131 mg/dL (75-99)
[2016-10-16] MEDS: INSULIN GLARGINE 100 UNIT/ML 10 ML VIAL SQ SCH (22:00)
[2016-10-16] MEDS: ATORVASTATIN 10 MG TAB PO SCH (22:05)
[2016-10-16 22:47] LABS: Glucose,Whole Blood 96 mg/dL (75-99)
--- NOTE | 2016-10-16 23:37 | P.PN ---
Subjective Principal diagnosis: Respiratory failure, COPD exacerbation, severe bronchitis, hypertension, a aspiration pneumonia, possible dysphagia, mild arrhythmia with tachycardia possible A. fib. 71-year-old morbidly obese male of Dr. Beatty patient with past medical history of morbid obesity, COPD, diastolic congestive heart failure, history of CAD and hyperglycemia who apparently has been having worsening dyspnea and shortness of breath with cough productive dark phlegm along with worsening wheezes for the last few weeks. Patient seen Dr. Rodriguez pulmonary also seen cardiology and seen his primary care physician. Antibiotics and steroid were dispensed by his primary care physician recently where patient had dry without any Loc continued to become much sicker in the last few days. Was seen his primary care physician today and refer to the emergency department at [facility] where patient was seen and evaluated, found to have in mild respiratory distress, chest x-ray failed to show any infiltrate or pneumonia patient has CO2 retention and worsening symptoms. Patient was started on O2, updraft treatment, Solu-Medrol and antibiotic for atypical pneumonitis and admitted to the hospital with the above problem. 10/14: Patient has been seen by Dr. Wang. He is currently on Solu-Medrol 60 mg IV every 6 hours. He is noted to have hyperglycemia and is on insulin drip. CAT scan of the chest has been ordered. Repeat EKG is a sinus rhythm. BUN 37 and creatinine 1.49. 10/15: CAT scan of the chest showed bilateral pneumonia and atelectasis at the lung bases in the posterior basal segments. Small hiatal hernia and mild atherosclerotic vascular disease. Patient does not feel he has been choking but he does wake up in the night coughing and history of gastric reflux. Esophagram ordered for Monday to assess for reflux and aspiration. Antibiotics switched to Zosyn and Levaquin. Blood sugars have been running 160 to 208. Morning lab work is pending. 10/16: Patient is breathing much better sugar still mildly elevated and he was not in any medication at home patient be switched to subcu Lantus along with NovoLog before meals meals. Also had 2 episodes of tachycardia lasted for sure. Of time with suspicion for A. fib patient be seen cardiology. He is planning to go home on Monday or Monday if is ready. Objective - Vital Signs Vital signs: Vital Signs Temp 98.6 F 10/16/16 07:00 Pulse 88 10/16/16 13:45 Resp 18 10/16/16 13:30 BP 124/80 10/16/16 07:00 Pulse Ox 92 L 10/16/16 07:00 Intake & Output 10/15/16 10/16/16 10/16/16 18:59 06:59 18:59 Intake Total 129.667 116.375 39.325 Balance 129.667 116.375 39.325 Intake: IV 22 Insulin Regular 100 unit 22 In Sodium Chloride 0.9% 100 ml @ Titrate IV .Q0M [facility] Rx#:[id number] Intake, IV Titration 129.667 94.375 39.325 Amount Insulin Regular 100 unit 79.667 44.375 39.325 In Sodium Chloride 0.9% 100 ml @ Titrate IV .Q0M [facility] Rx#:[id number] Piperacillin-Tazobactam 3 50 50 .375 gm In Dextrose/Water 1 50ml.bag @ 12.5 mls/hr IVPB Q8HR [facility]ENT Rx#: [id number] Other: Voiding Method Toilet Toilet Toilet Urinal Urinal Urinal # Voids 3 - Constitutional General appearance: Present: cooperative, no acute distress, obese. Absent: average body habitus, disheveled, mild distress, morbidly obese, severe distress , thin - EENT Eyes: Present: abnormal pupil, normal appearance. Absent: anicteric sclerae, disc margins sharp, edentulous, EOMI, PERRLA, fundus normal, photophobia, dentition normal, poor dentition, ptosis, scleral icterus ENT: Present: hard of hearing, normal oropharynx, pharyngeal erythema. Absent: hearing grossly normal, NA/AT, other, thrush, tonsillar exudates, tonsillar swelling Ears: bilateral: normal - Neck Neck: Present: normal ROM Carotids: bilateral: upstroke normal, upstroke delayed Thyroid: bilateral: normal size - Respiratory Respiratory: bilateral: diminished, dullness, rales, rhonchi, wheezing, prolonged expiration - Cardiovascular Rhythm: regular Heart sounds: normal: S1, S2 Abnormal Heart Sounds: Present: systolic murmur, S3 Gallop - Gastrointestinal General gastrointestinal: Present: distended, normal bowel sounds, soft. Absent : absent bowel sounds, decreased bowel sounds, hepatomegaly, hyperactive bowel sounds, organomegaly, rigid, scaphoid, splenomegaly, tenderness, umbilical hernia, ventral hernia - Integumentary Integumentary: Present: normal, pale, rash. Absent: calor, cellulitis, cyanotic , decreased turgor, flushed, jaundiced, normal turgor, ulcer - Neurologic Neurologic: Present: CNII-XII intact - Musculoskeletal Musculoskeletal: Present: gait normal, generalized weakness, strength equal bilaterally. Absent: right sided weakness, left sided weakness - Psychiatric Psychiatric: Present: A&O x's 3, appropriate affect - Labs CBC & Chem 7: 10/16/16 07:00 10/16/16 07:00 Labs: Abnormal Lab Results - Last 24 Hours (Table) 10/15/16 10/15/16 10/15/16 Range/Units 17:37 20:02 22:12 WBC (3.8-10.6) k/uL RBC (4.30-5.90) m/uL Hgb (13.0-17.5) gm/dL Hct (39.0-53.0) % RDW (11.5-15.5) % Neutrophils # (1.3-7.7) k/uL Lymphocytes # (1.0-4.8) k/uL BUN (9-20) mg/dL Creatinine (0.66-1.25) mg/dL Glucose (74-99) mg/dL POC Glucose (mg/dL) 156 H 235 H 156 H (75-99) mg/dL Total Protein (6.3-8.2) g/dL 10/15/16 10/16/16 10/16/16 Range/Units 23:51 01:46 04:13 WBC (3.8-10.6) k/uL RBC (4.30-5.90) m/uL Hgb (13.0-17.5) gm/dL Hct (39.0-53.0) % RDW (11.5-15.5) % Neutrophils # (1.3-7.7) k/uL Lymphocytes # (1.0-4.8) k/uL BUN (9-20) mg/dL Creatinine (0.66-1.25) mg/dL Glucose (74-99) mg/dL POC Glucose (mg/dL) 108 H 106 H 229 H (75-99) mg/dL Total Protein (6.3-8.2) g/dL 10/16/16 10/16/16 10/16/16 Range/Units 05:49 07:00 07:00 WBC 16.7 H (3.8-10.6) k/uL RBC 3.52 L (4.30-5.90) m/uL Hgb 11.1 L (13.0-17.5) gm/dL Hct 33.1 L (39.0-53.0) % RDW 15.9 H (11.5-15.5) % Neutrophils # 15.5 H (1.3-7.7) k/uL Lymphocytes # 0.5 L (1.0-4.8) k/uL BUN 52 H (9-20) mg/dL Creatinine 1.73 H (0.66-1.25) mg/dL Glucose 168 H (74-99) mg/dL POC Glucose (mg/dL) 203 H (75-99) mg/dL Total Protein 6.1 L (6.3-8.2) g/dL 10/16/16 10/16/16 10/16/16 Range/Units 07:38 10:22 11:58 WBC (3.8-10.6) k/uL RBC (4.30-5.90) m/uL Hgb (13.0-17.5) gm/dL Hct (39.0-53.0) % RDW (11.5-15.5) % Neutrophils # (1.3-7.7) k/uL Lymphocytes # (1.0-4.8) k/uL BUN (9-20) mg/dL Creatinine (0.66-1.25) mg/dL Glucose (74-99) mg/dL POC Glucose (mg/dL) 168 H 244 H 166 H (75-99) mg/dL Total Protein (6.3-8.2) g/dL 10/16/16 Range/Units 14:12 WBC (3.8-10.6) k/uL RBC (4.30-5.90) m/uL Hgb (13.0-17.5) gm/dL Hct (39.0-53.0) % RDW (11.5-15.5) % Neutrophils # (1.3-7.7) k/uL Lymphocytes # (1.0-4.8) k/uL BUN (9-20) mg/dL Creatinine (0.66-1.25) mg/dL Glucose (74-99) mg/dL POC Glucose (mg/dL) 199 H (75-99) mg/dL Total Protein (6.3-8.2) g/dL Assessment and Plan Plan: 1 acute respiratory distress due to bilateral pneumonia, possible aspiration pneumonia and COPD exacerbation: Patient will be hospitalized continue O2 continue heavy dose of steroid IV along with steroid nebulizer, DuoNeb and pulmonary consult should consider pulmonary rehabilitation as well. CT of the chest as above. Antibiotics changed to Zosyn and Levaquin. 2 COPD exacerbation: With failure to outpatient treatment, continue Solu-Medrol 60 mg every 6 hours combine with DuoNeb and Pulmicort. 3 severe purulent tracheal bronchitis and early pneumonitis: With the failure to outpatient treatment direct management toward atypical bacteria, patient be started on Rocephin and Zithromax for now. 4 hypertension: Patient has been on amlodipine valsartan along with metoprolol, continue medication. 5 hyperlipidemia: Has been on simvastatin 20 mg daily with good results so far. 6 atherosclerotic heart disease: Patient had recent cardiac testing with stress and echo with no significant change since. 7 obstructive sleep apnea: Patient has been on CPAP regular basis. 8. Hyperglycemia secondary to possible diabetes mellitus type 2 versus side effects from steroids. Continue insulin. 9 dysphagia: Patient be going for swallow eval if needed EGD. Patient might be having more symptoms of GERD causing aspiration pneumonia through regurgitating his food specially if he is eating late before going to sleep with something patient and family were told about it and to changes habit completely not to eat the last 4 hours before going to sleep. If testing positive patient will require EGD. GI prophylaxis: Patient will be on Pepcid 20 mg daily. Discharge planning: Most likely on Monday or Monday.
[2016-10-17] MEDS: PIPERACILLIN-TAZOBACTAM 3.375 GM in DEXTROSE/WATER 1 50ML.BAG IVPB SCH ×2 (01:00→08:45)
[2016-10-17 01:05] LABS: Glucose,Whole Blood 155 mg/dL (75-99)
[2016-10-17] MEDS: IPRATROPIUM-ALBUTEROL 3 ML NEB INHALATION SCH ×6 (03:29→23:22)
[2016-10-17 05:58] LABS: Glucose,Whole Blood 229 mg/dL (75-99)
[2016-10-17 06:15] LABS: Basophils % (A) 0 %; CH 32.8; CHCM 34.9; Eosinophils % (A) 0 %; HCT 32.5 % (39.0-53.0); HDW 3.41; Luc # (Auto) 0.13; Luc % (Auto) 1; Lymphocytes # (A) 0.5 k/uL (1.0-4.8); Lymphocytes % (A) 4 %; MCV 94.4 fL (80.0-100.0); Mean Platelet Volume 6.7; Monocytes # (A) 0.5 k/uL (0-1.0); Monocytes % (A) 4 %; Neutrophils # (A) 11.9 k/uL (1.3-7.7); Neutrophils % (A) 91 %; Poikilocytosis Slight; RBC 3.44 m/uL (4.30-5.90); WBC 13.1 k/uL (3.8-10.6); WBC (Perox) 14.48
[2016-10-17 06:33] LABS: Calcium 8.4 mg/dL (8.4-10.2); Potassium 3.7 mmol/L (3.5-5.1); Total Protein 5.6 g/dL (6.3-8.2)
[2016-10-17] MEDS: PANTOPRAZOLE 40 MG TABLET PO SCH (06:50)
[2016-10-17] MEDS: INSULIN LISPRO (humaLOG) 300 UNIT/3 ML VIAL SQ SCH ×4 (06:50→21:19)
[2016-10-17] MEDS: SYMBICORT 160-4.5 MCG INHALER INHALATION SCH ×2 (08:02→20:16)
[2016-10-17] MEDS: amLODIPine 5 MG TAB PO SCH (08:16)
[2016-10-17] MEDS: ASPIRIN 81 MG CHEW PO SCH (08:16)
[2016-10-17] MEDS: predniSONE 20 MG TAB PO SCH (08:16)
[2016-10-17] MEDS: LOSARTAN 50 MG TAB PO SCH (08:16)
[2016-10-17] MEDS: METOPROLOL TARTRATE 50 MG TAB PO SCH (08:17)
[2016-10-17] MEDS: LEVOFLOXACIN 750 MG TAB PO SCH (08:17)
[2016-10-17] MEDS: HEPARIN SODIUM,PORCINE 5,000 UNIT/ML 1 ML VIAL SQ SCH ×2 (08:17→20:36)
[2016-10-17] MEDS ORDERED: METOPROLOL TARTRATE 25 MG TAB PO ONE (09:00)
[2016-10-17 12:05] LABS: Glucose,Whole Blood 161 mg/dL (75-99)
--- NOTE | 2016-10-17 15:09 | P.PN ---
Subjective 71-year-old morbidly obese male of Dr. Beatty patient with past medical history of morbid obesity, COPD, obstructive sleep apnea maintained on BiPAP therapy at a pressure of 20/15 cm of water on outpatient basis in addition to history of diastolic congestive heart failure, history of CAD and hyperglycemia who apparently has been having worsening dyspnea and shortness of breath with cough productive dark phlegm along with worsening wheezes for the last few weeks. Patient seen Dr. Rodriguez pulmonary also seen cardiology and seen his primary care physician. Antibiotics and steroid were dispensed by his primary care physician recently where patient had dry without any Loc continued to become much sicker in the last few days. Was seen his primary care physician today and refer to the emergency department at [facility] where patient was seen and evaluated, found to have in mild respiratory distress, chest x-ray failed to show any infiltrate or pneumonia patient has CO2 retention and worsening symptoms. Patient was started on O2, updraft treatment, Solu-Medrol and antibiotic for atypical pneumonitis and admitted to the hospital with the above problem On 10/17/2016 the patient is being seen in follow-up. He is doing well and he has no specific complaints. No major respiratory distress. He is having some issues with sinus tachycardia and he was seen by cardiology and the Lopressor dose was increased. His chest x-ray from today is essentially clear and there is no acute pulmonary infiltration. The patient has a slight congestion and cough. No wheezes. No chest pain. No swelling in the lower extremities. I checked his machine and the patient has a BiPAP machine which is set at a pressure of 20/15 cm of water. He is also utilizing a [employer]age Quattro fullface mask. Objective - Vital Signs Vital signs: Vital Signs Temp 97.6 F 10/17/16 08:00 Pulse 73 10/17/16 12:00 Resp 18 10/17/16 12:00 BP 116/71 10/17/16 12:00 Pulse Ox 94 L 10/17/16 12:00 Intake & Output 10/16/16 10/17/16 10/17/16 18:59 06:59 18:59 Intake Total 51.867 570.667 410 Output Total 600 500 Balance -548.133 70.667 410 Weight 115.3 kg Intake: IV 228 0.9 220 Insulin Regular 100 unit 8 In Sodium Chloride 0.9% 100 ml @ Titrate IV .Q0M [facility] Rx#:[id number] Intake, IV Titration 51.867 102.667 50 Amount Insulin Regular 100 unit 51.867 2.667 In Sodium Chloride 0.9% 100 ml @ Titrate IV .Q0M [facility] Rx#:[id number] Piperacillin-Tazobactam 3 100 50 .375 gm In Dextrose/Water 1 50ml.bag @ 12.5 mls/hr IVPB Q8HR [facility] Rx#: [id number] Oral 240 360 Output: Urine 600 500 Other: Voiding Method Toilet Toilet Urinal Urinal # Voids 1 1 - Exam Head exam was generally normal. There was no scleral icterus or corneal arcus. Mucous membranes were moist. Neck is short and supple and there is significant crowding of the posterior pharynx. There is no goiter or neck masses. Lungs sounds are diminished and there is no wheezes on today's evaluation. Heart sounds are slightly tachycardic, positive S1-S2 and there is no significant murmurs appreciated.Abdominal exam revealed normal bowel sounds. The abdomen was soft, non-tender, and without masses, organomegaly, or appreciable enlargement of the abdominal aorta.Examination of the extremities revealed easily palpable radial, femoral and pedal pulses. There was no cyanosis, clubbing or edema. - Labs CBC & Chem 7: 10/17/16 05:48 10/17/16 05:48 Labs: Abnormal Lab Results - Last 24 Hours (Table) 10/16/16 10/16/16 10/16/16 Range/Units 15:47 17:35 20:44 WBC (3.8-10.6) k/uL RBC (4.30-5.90) m/uL Hgb (13.0-17.5) gm/dL Hct (39.0-53.0) % RDW (11.5-15.5) % Neutrophils # (1.3-7.7) k/uL Lymphocytes # (1.0-4.8) k/uL BUN (9-20) mg/dL Creatinine (0.66-1.25) mg/dL Glucose (74-99) mg/dL POC Glucose (mg/dL) 174 H 137 H 131 H (75-99) mg/dL Total Protein (6.3-8.2) g/dL Albumin (3.5-5.0) g/dL TSH (0.465-4.680) mIU/L 10/17/16 10/17/16 10/17/16 Range/Units 01:03 05:48 05:48 WBC 13.1 H (3.8-10.6) k/uL RBC 3.44 L (4.30-5.90) m/uL Hgb 11.0 L (13.0-17.5) gm/dL Hct 32.5 L (39.0-53.0) % RDW 16.0 H (11.5-15.5) % Neutrophils # 11.9 H (1.3-7.7) k/uL Lymphocytes # 0.5 L (1.0-4.8) k/uL BUN 51 H (9-20) mg/dL Creatinine 1.60 H (0.66-1.25) mg/dL Glucose 189 H (74-99) mg/dL POC Glucose (mg/dL) 155 H (75-99) mg/dL Total Protein 5.6 L (6.3-8.2) g/dL Albumin 3.3 L (3.5-5.0) g/dL TSH 0.241 L (0.465-4.680) mIU/L 10/17/16 10/17/16 Range/Units 05:57 11:27 WBC (3.8-10.6) k/uL RBC (4.30-5.90) m/uL Hgb (13.0-17.5) gm/dL Hct (39.0-53.0) % RDW (11.5-15.5) % Neutrophils # (1.3-7.7) k/uL Lymphocytes # (1.0-4.8) k/uL BUN (9-20) mg/dL Creatinine (0.66-1.25) mg/dL Glucose (74-99) mg/dL POC Glucose (mg/dL) 229 H 161 H (75-99) mg/dL Total Protein (6.3-8.2) g/dL Albumin (3.5-5.0) g/dL TSH (0.465-4.680) mIU/L Assessment and Plan Plan: 1 acute respiratory distress due to bilateral pneumonia, possible aspiration pneumonia and COPD exacerbation: Patient has improved considerably and at this point in time he has no significant respiratory distress. The follow-up chest x -ray done today showed no acute abnormalities. 2 COPD exacerbation: The patient was taken off the IV Solu-Medrol he is currently on a prednisone burst taper. He will be discharged home on his Symbicort as maintenance and albuterol nebulized treatment as needed. 3 secondary of sleep apnea maintained on BiPAP at a pressure of 20/15 4 hypertension: 5 hyperlipidemia: 6 atherosclerotic heart disease: Patient had recent cardiac testing with stress and echo with no significant change since. 7 obesity 8. Hyperglycemia secondary to possible diabetes mellitus type 2 versus side effects from steroids. Continue insulin. 9 dysphagia improved and the patient is awaiting swallow evaluation 10 sinus tachycardia 11 Chronic renal failure YUE Continue BiPAP. Continue antibiotics and drop the Zosyn and keep the patient only on Levaquin. Continue prednisone burst taper. Swallow evaluation. Cardiology to monitor sinus arrhythmias. Potential discharge in the next 24-48 hours.
--- NOTE | 2016-10-17 15:36 | P.PN ---
Subjective Principal diagnosis: COPD exacerbation This is a 71-year-old morbidly obese male with history of COPD, congestive heart failure, diastolic in nature, who presented to the hospital with symptoms of difficulty in breathing. Currently being treated for bilateral pneumonia along with the possible aspiration pneumonia and COPD exacerbation. Cardiology was following the patient because of narrow complex supraventricular tachycardia consistent with AV trip reentry tachycardia. Patient had another rapid rate through the night last night. Metoprolol tartrate was increased to 50 mg by mouth twice a day. Today the patient is staying in normal sinus rhythm at this time. Objective - Vital Signs Vital signs: Vital Signs Temp 97.6 F 10/17/16 08:00 Pulse 73 10/17/16 12:00 Resp 18 10/17/16 12:00 BP 116/71 10/17/16 12:00 Pulse Ox 94 L 10/17/16 12:00 Intake & Output 10/16/16 10/17/16 10/17/16 18:59 06:59 18:59 Intake Total 51.867 570.667 410 Output Total 600 500 Balance -548.133 70.667 410 Weight 115.3 kg Intake: IV 228 0.9 220 Insulin Regular 100 unit 8 In Sodium Chloride 0.9% 100 ml @ Titrate IV .Q0M [facility] Rx#:[id number] Intake, IV Titration 51.867 102.667 50 Amount Insulin Regular 100 unit 51.867 2.667 In Sodium Chloride 0.9% 100 ml @ Titrate IV .Q0M [facility] Rx#:[id number] Piperacillin-Tazobactam 3 100 50 .375 gm In Dextrose/Water 1 50ml.bag @ 12.5 mls/hr IVPB Q8HR [facility] Rx#: [id number] Oral 240 360 Output: Urine 600 500 Other: Voiding Method Toilet Toilet Urinal Urinal # Voids 1 1 - Exam PHYSICAL EXAMINATION: HEENT: Head is atraumatic, normocephalic. Pupils equal, round. Neck is supple. There is no elevated jugular venous pressure. HEART EXAMINATION: S1 and S2 systolic murmur is heard. CHEST EXAMINATION: Lungs reveal scattered coarse wheezes throughout. ABDOMEN: Soft, obese, distended, nontender. Bowel sounds are heard. No organomegaly noted. EXTREMITIES: 2+ peripheral pulses with no evidence of peripheral edema and no calf tenderness noted. NEUROLOGIC patient is awake, alert and oriented -3. . - Labs CBC & Chem 7: 10/17/16 05:48 10/17/16 05:48 Labs: Abnormal Lab Results - Last 24 Hours (Table) 10/16/16 10/16/16 10/16/16 Range/Units 15:47 17:35 20:44 WBC (3.8-10.6) k/uL RBC (4.30-5.90) m/uL Hgb (13.0-17.5) gm/dL Hct (39.0-53.0) % RDW (11.5-15.5) % Neutrophils # (1.3-7.7) k/uL Lymphocytes # (1.0-4.8) k/uL BUN (9-20) mg/dL Creatinine (0.66-1.25) mg/dL Glucose (74-99) mg/dL POC Glucose (mg/dL) 174 H 137 H 131 H (75-99) mg/dL Total Protein (6.3-8.2) g/dL Albumin (3.5-5.0) g/dL TSH (0.465-4.680) mIU/L 10/17/16 10/17/16 10/17/16 Range/Units 01:03 05:48 05:48 WBC 13.1 H (3.8-10.6) k/uL RBC 3.44 L (4.30-5.90) m/uL Hgb 11.0 L (13.0-17.5) gm/dL Hct 32.5 L (39.0-53.0) % RDW 16.0 H (11.5-15.5) % Neutrophils # 11.9 H (1.3-7.7) k/uL Lymphocytes # 0.5 L (1.0-4.8) k/uL BUN 51 H (9-20) mg/dL Creatinine 1.60 H (0.66-1.25) mg/dL Glucose 189 H (74-99) mg/dL POC Glucose (mg/dL) 155 H (75-99) mg/dL Total Protein 5.6 L (6.3-8.2) g/dL Albumin 3.3 L (3.5-5.0) g/dL TSH 0.241 L (0.465-4.680) mIU/L 10/17/16 10/17/16 Range/Units 05:57 11:27 WBC (3.8-10.6) k/uL RBC (4.30-5.90) m/uL Hgb (13.0-17.5) gm/dL Hct (39.0-53.0) % RDW (11.5-15.5) % Neutrophils # (1.3-7.7) k/uL Lymphocytes # (1.0-4.8) k/uL BUN (9-20) mg/dL Creatinine (0.66-1.25) mg/dL Glucose (74-99) mg/dL POC Glucose (mg/dL) 229 H 161 H (75-99) mg/dL Total Protein (6.3-8.2) g/dL Albumin (3.5-5.0) g/dL TSH (0.465-4.680) mIU/L Assessment and Plan (1) HTN (hypertension) Status: Acute (2) Hyperlipemia Status: Acute (3) Sleep apnea Status: Acute (4) AV trip re-entry tachycardia Status: Acute (5) COPD exacerbation Status: Acute (6) Dyspnea Status: Acute (7) Pneumonia Status: Acute Plan: From cardiology's perspective, we'll recommend to continue to monitor the patient for 24 hours, if the rhythm remained stable plan for discharge home in the morning. DNP note has been reviewed, I agree with a documented findings and plan of care. Patient was seen and examined.
--- NOTE | 2016-10-17 16:05 | XR ---
EXAMINATION TYPE: XR chest 2V DATE OF EXAM: 10/17/2016 11:50 AM COMPARISON: 10/13/2016 HISTORY: Shortness of breath TECHNIQUE: Frontal and lateral views of the chest are obtained. FINDINGS: Scattered senescent parenchymal changes noted. Hyperinflation compatible with COPD. No evidence for infiltrate. No evidence for atelectasis. Heart size is stable. Mediastinal structures are stable and grossly unremarkable. No evidence for hilar prominence. Degenerative changes dorsal spine. IMPRESSION: 1. No evidence for acute pulmonary disease.
--- NOTE | 2016-10-17 16:36 | P.PN ---
Subjective 71-year-old morbidly obese male of Dr. Beatty patient with past medical history of morbid obesity, COPD, diastolic congestive heart failure, history of CAD and hyperglycemia who apparently has been having worsening dyspnea and shortness of breath with cough productive dark phlegm along with worsening wheezes for the last few weeks. Patient seen Dr. Rodriguez pulmonary also seen cardiology and seen his primary care physician. Antibiotics and steroid were dispensed by his primary care physician recently where patient had dry without any Loc continued to become much sicker in the last few days. Was seen his primary care physician today and refer to the emergency department at [facility] where patient was seen and evaluated, found to have in mild respiratory distress, chest x-ray failed to show any infiltrate or pneumonia patient has CO2 retention and worsening symptoms. Patient was started on O2, updraft treatment, Solu-Medrol and antibiotic for atypical pneumonitis and admitted to the hospital with the above problem. 10/14: Patient has been seen by Dr. Wang. He is currently on Solu-Medrol 60 mg IV every 6 hours. He is noted to have hyperglycemia and is on insulin drip. CAT scan of the chest has been ordered. Repeat EKG is a sinus rhythm. BUN 37 and creatinine 1.49. 10/15: CAT scan of the chest showed bilateral pneumonia and atelectasis at the lung bases in the posterior basal segments. Small hiatal hernia and mild atherosclerotic vascular disease. Patient does not feel he has been choking but he does wake up in the night coughing and history of gastric reflux. Esophagram ordered for Monday to assess for reflux and aspiration. Antibiotics switched to Zosyn and Levaquin. Blood sugars have been running 160 to 208. Morning lab work is pending. 10/16: Patient is breathing much better sugar still mildly elevated and he was not in any medication at home patient be switched to subcu Lantus along with NovoLog before meals meals. Also had 2 episodes of tachycardia lasted for sure. Of time with suspicion for A. fib patient be seen cardiology. He is planning to go home on Monday or Monday if is ready. 10/17: Patient was transferred to the [facility] care for SVT and followed by cardiology. Metoprolol was increased to 75 mg twice daily. He did have repeat episode this morning of 180 bpm. Pulse ox is 94% with ambulation and patient will not require home oxygen. Patient is willing to start insulin at home. Anticipate possible discharge in the next 24 hours. He has been continued on BiPAP at night. Patient is now agreeable for home care. Objective - Vital Signs Vital signs: Vital Signs Temp 97.6 F 10/17/16 08:00 Pulse 88 10/17/16 16:00 Resp 17 10/17/16 16:00 BP 126/81 10/17/16 16:00 Pulse Ox 94 L 10/17/16 16:00 Intake & Output 10/16/16 10/17/16 10/17/16 18:59 06:59 18:59 Intake Total 51.867 570.667 410 Output Total 600 500 Balance -548.133 70.667 410 Weight 115.3 kg Intake: IV 228 0.9 220 Insulin Regular 100 unit 8 In Sodium Chloride 0.9% 100 ml @ Titrate IV .Q0M [facility] Rx#:[id number] Intake, IV Titration 51.867 102.667 50 Amount Insulin Regular 100 unit 51.867 2.667 In Sodium Chloride 0.9% 100 ml @ Titrate IV .Q0M [facility] Rx#:[id number] Piperacillin-Tazobactam 3 100 50 .375 gm In Dextrose/Water 1 50ml.bag @ 12.5 mls/hr IVPB Q8HR [facility] Rx#: [id number] Oral 240 360 Output: Urine 600 500 Other: Voiding Method Toilet Toilet Urinal Urinal # Voids 1 1 - Exam General appearance: no average body habitus, cooperative, no disheveled, mild distress, morbidly obese, no no acute distress, no obese, no severe distress, no thin - EENT Eyes: no abnormal pupil, no anicteric sclerae, no disc margins sharp, no edentulous, no EOMI, no PERRLA, no fundus normal, no photophobia, no dentition normal, no poor dentition, no ptosis, no scleral icterus, normal appearance ENT: hard of hearing, no hearing grossly normal, no NA/AT, normal oropharynx, no other, pharyngeal erythema, no thrush, no tonsillar exudates, no tonsillar swelling Ears: bilateral: normal - Neck Neck: no lymphadenopathy, normal ROM, no other, no rigidity, no stridor, no thyromegaly Carotids: bilateral: upstroke normal Thyroid: bilateral: normal size - Respiratory Respiratory: bilateral: diminished, dullness, rales, rhonchi, wheezing, prolonged expiration, prolonged inspiration - Cardiovascular Rhythm: irregularly irregular Heart sounds: normal: S1, S2 Abnormal Heart Sounds: systolic murmur, S3 Gallop - Gastrointestinal General gastrointestinal: no absent bowel sounds, no decreased bowel sounds, distended, hepatomegaly, no hyperactive bowel sounds, normal bowel sounds, no organomegaly, no rigid, scaphoid, soft, no splenomegaly, no tenderness, no umbilical hernia, no ventral hernia - Integumentary Integumentary: no calor, no cellulitis, cyanotic, no decreased turgor, no flushed, no jaundiced, normal, no normal turgor, pale, rash, no ulcer - Neurologic Neurologic: CNII-XII intact - Musculoskeletal Musculoskeletal: gait normal, generalized weakness, strength equal bilaterally, right sided weakness - Psychiatric Psychiatric: A&O x's 3, appropriate affect - Labs CBC & Chem 7: 10/17/16 05:48 10/17/16 05:48 Labs: Abnormal Lab Results - Last 24 Hours (Table) 10/16/16 10/16/16 10/17/16 Range/Units 17:35 20:44 01:03 WBC (3.8-10.6) k/uL RBC (4.30-5.90) m/uL Hgb (13.0-17.5) gm/dL Hct (39.0-53.0) % RDW (11.5-15.5) % Neutrophils # (1.3-7.7) k/uL Lymphocytes # (1.0-4.8) k/uL BUN (9-20) mg/dL Creatinine (0.66-1.25) mg/dL Glucose (74-99) mg/dL POC Glucose (mg/dL) 137 H 131 H 155 H (75-99) mg/dL Total Protein (6.3-8.2) g/dL Albumin (3.5-5.0) g/dL TSH (0.465-4.680) mIU/L 10/17/16 10/17/16 10/17/16 Range/Units 05:48 05:48 05:57 WBC 13.1 H (3.8-10.6) k/uL RBC 3.44 L (4.30-5.90) m/uL Hgb 11.0 L (13.0-17.5) gm/dL Hct 32.5 L (39.0-53.0) % RDW 16.0 H (11.5-15.5) % Neutrophils # 11.9 H (1.3-7.7) k/uL Lymphocytes # 0.5 L (1.0-4.8) k/uL BUN 51 H (9-20) mg/dL Creatinine 1.60 H (0.66-1.25) mg/dL Glucose 189 H (74-99) mg/dL POC Glucose (mg/dL) 229 H (75-99) mg/dL Total Protein 5.6 L (6.3-8.2) g/dL Albumin 3.3 L (3.5-5.0) g/dL TSH 0.241 L (0.465-4.680) mIU/L 10/17/16 Range/Units 11:27 WBC (3.8-10.6) k/uL RBC (4.30-5.90) m/uL Hgb (13.0-17.5) gm/dL Hct (39.0-53.0) % RDW (11.5-15.5) % Neutrophils # (1.3-7.7) k/uL Lymphocytes # (1.0-4.8) k/uL BUN (9-20) mg/dL Creatinine (0.66-1.25) mg/dL Glucose (74-99) mg/dL POC Glucose (mg/dL) 161 H (75-99) mg/dL Total Protein (6.3-8.2) g/dL Albumin (3.5-5.0) g/dL TSH (0.465-4.680) mIU/L Assessment and Plan Plan: 1 acute respiratory distress due to bilateral pneumonia, possible aspiration pneumonia and COPD exacerbation: Patient will be hospitalized continue O2 continue heavy dose of steroid IV along with steroid nebulizer, DuoNeb and pulmonary consult should consider pulmonary rehabilitation as well. CT of the chest as above. Antibiotics changed to Zosyn and Levaquin. 2 COPD exacerbation: With failure to outpatient treatment, continue Solu-Medrol 60 mg every 6 hours combine with DuoNeb and Pulmicort. 3 severe purulent tracheal bronchitis and early pneumonitis: With the failure to outpatient treatment direct management toward atypical bacteria, patient be started on Rocephin and Zithromax for now. 4 hypertension: Patient has been on amlodipine valsartan along with metoprolol, continue medication. 5 hyperlipidemia: Has been on simvastatin 20 mg daily with good results so far. 6 atherosclerotic heart disease: Patient had recent cardiac testing with stress and echo with no significant change since. 7 obstructive sleep apnea: Patient has been on CPAP regular basis. 8. Hyperglycemia secondary to possible diabetes mellitus type 2 versus side effects from steroids. Continue insulin. GI prophylaxis: Patient will be on Pepcid 20 mg daily. DVT prophylaxis: Patient will be on heparin 5000 units subcutaneous twice a day. CODE STATUS: Full code. Discharge plan: Return home with homecare Impression and plan of care have been directed as dictated by the signing physician. Lay Elizabeth nurse practitioner acting as scribe for signing physician. Time with Patient: Greater than 30
[2016-10-17 17:02] LABS: Glucose,Whole Blood 239 mg/dL (75-99)
[2016-10-17] MEDS: INSULIN GLARGINE 100 UNIT/ML 10 ML VIAL SQ SCH (20:36)
[2016-10-17] MEDS: ATORVASTATIN 10 MG TAB PO SCH (20:36)
[2016-10-17 20:49] LABS: Glucose,Whole Blood 253 mg/dL (75-99)
[2016-10-17] MEDS ORDERED: METOPROLOL TARTRATE 25 MG TAB PO SCH (21:00)
[2016-10-18] MEDS: IPRATROPIUM-ALBUTEROL 3 ML NEB INHALATION SCH ×5 (04:17→20:55)
[2016-10-18 05:59] LABS: Glucose,Whole Blood 105 mg/dL (75-99)
[2016-10-18] MEDS: INSULIN LISPRO (humaLOG) 300 UNIT/3 ML VIAL SQ SCH ×4 (07:05→22:01)
[2016-10-18] MEDS: PANTOPRAZOLE 40 MG TABLET PO SCH (07:05)
[2016-10-18] MEDS: LOSARTAN 50 MG TAB PO SCH (08:08)
[2016-10-18] MEDS: HEPARIN SODIUM,PORCINE 5,000 UNIT/ML 1 ML VIAL SQ SCH ×2 (08:08→20:16)
[2016-10-18] MEDS: amLODIPine 5 MG TAB PO SCH (08:08)
[2016-10-18] MEDS: ASPIRIN 81 MG CHEW PO SCH (08:09)
[2016-10-18] MEDS: predniSONE 20 MG TAB PO SCH (08:09)
[2016-10-18] MEDS: METOPROLOL TARTRATE 50 MG TAB PO SCH ×2 (09:07→20:17)
[2016-10-18] MEDS: SYMBICORT 160-4.5 MCG INHALER INHALATION SCH ×2 (09:19→20:55)
[2016-10-18 12:08] LABS: Glucose,Whole Blood 162 mg/dL (75-99)
--- NOTE | 2016-10-18 12:53 | P.PN ---
Subjective 71-year-old morbidly obese male of Dr. Beatty patient with past medical history of morbid obesity, COPD, obstructive sleep apnea maintained on BiPAP therapy at a pressure of 20/15 cm of water on outpatient basis in addition to history of diastolic congestive heart failure, history of CAD and hyperglycemia who apparently has been having worsening dyspnea and shortness of breath with cough productive dark phlegm along with worsening wheezes for the last few weeks. Patient seen Dr. Rodriguez pulmonary also seen cardiology and seen his primary care physician. Antibiotics and steroid were dispensed by his primary care physician recently where patient had dry without any Loc continued to become much sicker in the last few days. Was seen his primary care physician today and refer to the emergency department at [facility] where patient was seen and evaluated, found to have in mild respiratory distress, chest x-ray failed to show any infiltrate or pneumonia patient has CO2 retention and worsening symptoms. Patient was started on O2, updraft treatment, Solu-Medrol and antibiotic for atypical pneumonitis and admitted to the hospital with the above problem On 10/17/2016 the patient is being seen in follow-up. He is doing well and he has no specific complaints. No major respiratory distress. He is having some issues with sinus tachycardia and he was seen by cardiology and the Lopressor dose was increased. His chest x-ray from today is essentially clear and there is no acute pulmonary infiltration. The patient has a slight congestion and cough. No wheezes. No chest pain. No swelling in the lower extremities. I checked his machine and the patient has a BiPAP machine which is set at a pressure of 20/15 cm of water. He is also utilizing a [employer] Quattro fullface mask. On 10/18/2016 the patient is still doing well from the pulmonary standpoint. He was having issues with AV node reentry tachycardia, and for this reason the patient is still being monitored here in the hospital. Cardiology is on the case. From the home a standpoint, there is been no major respiratory difficulties and the patient has been essentially stable without any cough chest that is so wheezing at this point. No swelling lower extremities. No chest pain. Utilizing the BiPAP every night without any interruptions. Objective - Vital Signs Vital signs: Vital Signs Temp 98.6 F 10/18/16 12:00 Pulse 83 10/18/16 12:00 Resp 16 10/18/16 12:00 BP 122/76 10/18/16 12:00 Pulse Ox 99 10/18/16 12:00 Intake & Output 10/17/16 10/18/16 10/18/16 18:59 06:59 18:59 Intake Total 650 1020 1060 Output Total 700 Balance 621 588 3024 Weight 113.4 kg Intake: IV 0 0.9 0 Intake, IV Titration 50 Amount Piperacillin-Tazobactam 3 50 .375 gm In Dextrose/Water 1 50ml.bag @ 12.5 mls/hr IVPB Q8HR [facility] Rx#: [id number] Oral 600 1020 1060 Output: Urine 700 Other: Voiding Method Toilet Toilet Urinal Urinal # Voids 1 1 - Exam Head exam was generally normal. There was no scleral icterus or corneal arcus. Mucous membranes were moist. Neck is short and supple and there is significant crowding of the posterior pharynx. There is no goiter or neck masses. Lungs sounds are diminished and there is no wheezes on today's evaluation. Heart sounds are slightly tachycardic, positive S1-S2 and there is no significant murmurs appreciated.Abdominal exam revealed normal bowel sounds. The abdomen was soft, non-tender, and without masses, organomegaly, or appreciable enlargement of the abdominal aorta.Examination of the extremities revealed easily palpable radial, femoral and pedal pulses. There was no cyanosis, clubbing or edema. - Labs CBC & Chem 7: 10/17/16 05:48 10/17/16 05:48 Labs: Abnormal Lab Results - Last 24 Hours (Table) 10/17/16 10/17/16 10/18/16 Range/Units 16:38 20:48 05:58 POC Glucose (mg/dL) 239 H 253 H 105 H (75-99) mg/dL 10/18/16 Range/Units 11:50 POC Glucose (mg/dL) 162 H (75-99) mg/dL Assessment and Plan Plan: 1 acute respiratory distress due to bilateral pneumonia, possible aspiration pneumonia and COPD exacerbation: Patient has improved considerably and at this point in time he has no significant respiratory distress. The follow-up chest x -ray done today showed no acute abnormalities. 2 COPD exacerbation: The patient was taken off the IV Solu-Medrol he is currently on a prednisone burst taper. He will be discharged home on his Symbicort as maintenance and albuterol nebulized treatment as needed. 3 secondary of sleep apnea maintained on BiPAP at a pressure of 20/15 4 hypertension: 5 hyperlipidemia: 6 atherosclerotic heart disease: Patient had recent cardiac testing with stress and echo with no significant change since. 7 obesity 8. Hyperglycemia secondary to possible diabetes mellitus type 2 versus side effects from steroids. Continue insulin. 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 Discharge per medicine and cardiology.
--- NOTE | 2016-10-18 13:11 | P.PN ---
Subjective 71-year-old morbidly obese male of Dr. Beatty patient with past medical history of morbid obesity, COPD, diastolic congestive heart failure, history of CAD and hyperglycemia who apparently has been having worsening dyspnea and shortness of breath with cough productive dark phlegm along with worsening wheezes for the last few weeks. Patient seen Dr. Rodriguez pulmonary also seen cardiology and seen his primary care physician. Antibiotics and steroid were dispensed by his primary care physician recently where patient had dry without any Loc continued to become much sicker in the last few days. Was seen his primary care physician today and refer to the emergency department at [facility] where patient was seen and evaluated, found to have in mild respiratory distress, chest x-ray failed to show any infiltrate or pneumonia patient has CO2 retention and worsening symptoms. Patient was started on O2, updraft treatment, Solu-Medrol and antibiotic for atypical pneumonitis and admitted to the hospital with the above problem. 10/14: Patient has been seen by Dr. Wang. He is currently on Solu-Medrol 60 mg IV every 6 hours. He is noted to have hyperglycemia and is on insulin drip. CAT scan of the chest has been ordered. Repeat EKG is a sinus rhythm. BUN 37 and creatinine 1.49. 10/15: CAT scan of the chest showed bilateral pneumonia and atelectasis at the lung bases in the posterior basal segments. Small hiatal hernia and mild atherosclerotic vascular disease. Patient does not feel he has been choking but he does wake up in the night coughing and history of gastric reflux. Esophagram ordered for Monday to assess for reflux and aspiration. Antibiotics switched to Zosyn and Levaquin. Blood sugars have been running 160 to 208. Morning lab work is pending. 10/16: Patient is breathing much better sugar still mildly elevated and he was not in any medication at home patient be switched to subcu Lantus along with NovoLog before meals meals. Also had 2 episodes of tachycardia lasted for sure. Of time with suspicion for A. fib patient be seen cardiology. He is planning to go home on Monday or Monday if is ready. 10/17: Patient was transferred to the [facility] care for SVT and followed by cardiology. Metoprolol was increased to 75 mg twice daily. He did have repeat episode this morning of 180 bpm. Pulse ox is 94% with ambulation and patient will not require home oxygen. Patient is willing to start insulin at home. Anticipate possible discharge in the next 24 hours. He has been continued on BiPAP at night. Patient is now agreeable for home care. 10/18: Heart rate continues to be intermittently elevated especially with activity. Cardiology has increased metoprolol to 100 mg twice daily.his respiratory status remains stable and he has been ambulating without increased shortness of breath. He is using BiPAP at night.he is continued on oral prednisone. Objective - Vital Signs Vital signs: Vital Signs Temp 97.4 F L 10/18/16 04:00 Pulse 84 10/18/16 09:40 Resp 17 10/18/16 04:00 BP 132/87 10/18/16 04:00 Pulse Ox 94 L 10/18/16 04:00 Intake & Output 10/17/16 10/18/16 10/18/16 18:59 06:59 18:59 Intake Total 650 1020 180 Output Total 700 Balance 650 320 180 Weight 113.4 kg Intake: IV 0 0.9 0 Intake, IV Titration 50 Amount Piperacillin-Tazobactam 3 50 .375 gm In Dextrose/Water 1 50ml.bag @ 12.5 mls/hr IVPB Q8HR [facility] Rx#: [id number] Oral 600 1020 180 Output: Urine 700 Other: Voiding Method Toilet Urinal # Voids 1 1 - Exam General appearance: no average body habitus, cooperative, no disheveled, mild distress, morbidly obese, no no acute distress, no obese, no severe distress, no thin - EENT Eyes: no abnormal pupil, no anicteric sclerae, no disc margins sharp, no edentulous, no EOMI, no PERRLA, no fundus normal, no photophobia, no dentition normal, no poor dentition, no ptosis, no scleral icterus, normal appearance ENT: hard of hearing, no hearing grossly normal, no NA/AT, normal oropharynx, no other, pharyngeal erythema, no thrush, no tonsillar exudates, no tonsillar swelling Ears: bilateral: normal - Neck Neck: no lymphadenopathy, normal ROM, no other, no rigidity, no stridor, no thyromegaly Carotids: bilateral: upstroke normal Thyroid: bilateral: normal size - Respiratory Respiratory: bilateral: diminished, dullness, rales, rhonchi, wheezing, prolonged expiration, prolonged inspiration - Cardiovascular Rhythm: irregularly irregular Heart sounds: normal: S1, S2 Abnormal Heart Sounds: systolic murmur, S3 Gallop - Gastrointestinal General gastrointestinal: no absent bowel sounds, no decreased bowel sounds, distended, hepatomegaly, no hyperactive bowel sounds, normal bowel sounds, no organomegaly, no rigid, scaphoid, soft, no splenomegaly, no tenderness, no umbilical hernia, no ventral hernia - Integumentary Integumentary: no calor, no cellulitis, cyanotic, no decreased turgor, no flushed, no jaundiced, normal, no normal turgor, pale, rash, no ulcer - Neurologic Neurologic: CNII-XII intact - Musculoskeletal Musculoskeletal: gait normal, generalized weakness, strength equal bilaterally, right sided weakness - Psychiatric Psychiatric: A&O x's 3, appropriate affect - Labs CBC & Chem 7: 10/17/16 05:48 10/17/16 05:48 Labs: Abnormal Lab Results - Last 24 Hours (Table) 10/17/16 10/17/16 10/17/16 Range/Units 11:27 16:38 20:48 POC Glucose (mg/dL) 161 H 239 H 253 H (75-99) mg/dL 10/18/16 Range/Units 05:58 POC Glucose (mg/dL) 105 H (75-99) mg/dL Assessment and Plan Plan: 1 acute respiratory distress due to bilateral pneumonia, possible aspiration pneumonia and COPD exacerbation: continue DuoNeb treatments, Symbicort twice daily, Levaquin, oral prednisone. 2 COPD exacerbation: With failure to outpatient treatment, continue oral prednisone, Symbicort, DuoNeb treatments. 3 severe purulent tracheal bronchitis and early pneumonitis: With the failure to outpatient treatment direct management toward atypical bacteria, patient be was on Rocephin and Zithromax.currently on Levaquin. 4 hypertension: Patient has been on amlodipine valsartan along with metoprolol, continue medication. 5 hyperlipidemia: Has been on simvastatin 20 mg daily with good results so far. 6 atherosclerotic heart disease: Patient had recent cardiac testing with stress and echo with no significant change since. 7 obstructive sleep apnea: Patient has been on CPAP regular basis. 8. Hyperglycemia secondary to possible diabetes mellitus type 2 versus side effects from steroids. Continue insulin. 9. AV node reentry tachycardia. Metoprolol 100 mg twice daily. reviewed TSH and free T4. GI prophylaxis: Patient will be on Pepcid 20 mg daily. DVT prophylaxis: Patient will be on heparin 5000 units subcutaneous twice a day. CODE STATUS: Full code. Discharge plan: Return home with homecare Impression and plan of care have been directed as dictated by the signing physician. Lay Elizabeth nurse practitioner acting as scribe for signing physician. Time with Patient: Greater than 30
--- NOTE | 2016-10-18 16:06 | P.PN ---
Subjective Principal diagnosis: COPD exacerbation This is a 71-year-old morbidly obese male with history of COPD, congestive heart failure, diastolic in nature, who presented to the hospital with symptoms of difficulty in breathing. Currently being treated for bilateral pneumonia along with the possible aspiration pneumonia and COPD exacerbation. Cardiology was following the patient because of narrow complex supraventricular tachycardia consistent with AV trip reentry tachycardia. Patient had more rapid rates through the night last night. Metoprolol tartrate was increased to 100 mg by mouth twice a day. We will continue to monitor for any further tachycardia arrhythmias. Objective - Vital Signs Vital signs: Vital Signs Temp 98.6 F 10/18/16 12:00 Pulse 83 10/18/16 12:00 Resp 16 10/18/16 12:00 BP 122/76 10/18/16 12:00 Pulse Ox 99 10/18/16 12:00 Intake & Output 10/17/16 10/18/16 10/18/16 18:59 06:59 18:59 Intake Total 650 1020 1240 Output Total 700 Balance 874 574 6410 Weight 113.4 kg Intake: IV 0 0.9 0 Intake, IV Titration 50 Amount Piperacillin-Tazobactam 3 50 .375 gm In Dextrose/Water 1 50ml.bag @ 12.5 mls/hr IVPB Q8HR [facility] Rx#: [id number] Oral 600 1020 1240 Output: Urine 700 Other: Voiding Method Toilet Toilet Urinal Urinal # Voids 1 1 - Exam PHYSICAL EXAMINATION: HEENT: Head is atraumatic, normocephalic. Pupils equal, round. Neck is supple. There is no elevated jugular venous pressure. HEART EXAMINATION: S1 and S2 systolic murmur is heard. CHEST EXAMINATION: Lungs reveal scattered coarse wheezes throughout. ABDOMEN: Soft, obese, distended, nontender. Bowel sounds are heard. No organomegaly noted. EXTREMITIES: 2+ peripheral pulses with no evidence of peripheral edema and no calf tenderness noted. NEUROLOGIC patient is awake, alert and oriented -3. . - Labs CBC & Chem 7: 10/17/16 05:48 10/17/16 05:48 Labs: Abnormal Lab Results - Last 24 Hours (Table) 10/17/16 10/17/16 10/18/16 Range/Units 16:38 20:48 05:58 POC Glucose (mg/dL) 239 H 253 H 105 H (75-99) mg/dL 10/18/16 Range/Units 11:50 POC Glucose (mg/dL) 162 H (75-99) mg/dL Assessment and Plan (1) HTN (hypertension) Status: Acute (2) Hyperlipemia Status: Acute (3) Sleep apnea Status: Acute (4) AV trip re-entry tachycardia Status: Acute (5) COPD exacerbation Status: Acute (6) Dyspnea Status: Acute (7) Pneumonia Status: Acute Plan: From cardiology's perspective, we'll recommend to continue to monitor the patient for 24 hours, if the rhythm remained stable plan for discharge home in the morning. DNP note has been reviewed, I agree with a documented findings and plan of care. Patient was seen and examined.
[2016-10-18 17:17] LABS: Glucose,Whole Blood 263 mg/dL (75-99)
[2016-10-18] MEDS: INSULIN GLARGINE 100 UNIT/ML 10 ML VIAL SQ SCH (20:17)
[2016-10-18] MEDS: ATORVASTATIN 10 MG TAB PO SCH (20:17)
[2016-10-18 21:32] LABS: Glucose,Whole Blood 246 mg/dL (75-99)
[2016-10-19] MEDS: IPRATROPIUM-ALBUTEROL 3 ML NEB INHALATION SCH ×4 (00:40→13:29)
[2016-10-19 05:57] LABS: Glucose,Whole Blood 108 mg/dL (75-99)
[2016-10-19] MEDS: INSULIN LISPRO (humaLOG) 300 UNIT/3 ML VIAL SQ SCH ×2 (06:02→11:42)
[2016-10-19] MEDS: PANTOPRAZOLE 40 MG TABLET PO SCH (06:37)
[2016-10-19] MEDS: LOSARTAN 50 MG TAB PO SCH (08:42)
[2016-10-19] MEDS: LEVOFLOXACIN 750 MG TAB PO SCH (08:43)
[2016-10-19] MEDS: ASPIRIN 81 MG CHEW PO SCH (08:43)
[2016-10-19] MEDS: predniSONE 20 MG TAB PO SCH (08:43)
[2016-10-19] MEDS: METOPROLOL TARTRATE 50 MG TAB PO SCH (08:43)
[2016-10-19] MEDS: HEPARIN SODIUM,PORCINE 5,000 UNIT/ML 1 ML VIAL SQ SCH (08:44)
[2016-10-19] MEDS: amLODIPine 5 MG TAB PO SCH (08:44)
[2016-10-19] MEDS: SYMBICORT 160-4.5 MCG INHALER INHALATION SCH (09:43)
[2016-10-19 10:21] VITALS: RESP 16; TEMP 97.6
[2016-10-19 11:39] LABS: Glucose,Whole Blood 137 mg/dL (75-99)
--- NOTE | 2016-10-19 14:14 | P.PN ---
Subjective Principal diagnosis: COPD exacerbation This is a 71-year-old morbidly obese male with history of COPD, congestive heart failure, diastolic in nature, who presented to the hospital with symptoms of difficulty in breathing. Currently being treated for bilateral pneumonia along with the possible aspiration pneumonia and COPD exacerbation. Cardiology was following the patient because of narrow complex supraventricular tachycardia consistent with AV trip reentry tachycardia. Continues to be in a normal sinus rhythm. Objective - Vital Signs Vital signs: Vital Signs Temp 97.6 F 10/19/16 08:00 Pulse 78 10/19/16 13:45 Resp 16 10/19/16 08:00 BP 120/77 10/19/16 08:00 Pulse Ox 97 10/19/16 08:00 Intake & Output 10/18/16 10/19/16 10/19/16 18:59 06:59 18:59 Intake Total 1360 120 236 Output Total 800 Balance 1360 -680 236 Weight 114.3 kg Intake: Oral 1360 120 236 Output: Urine 800 Other: Voiding Method Toilet Toilet Toilet Urinal Urinal Urinal # Voids 1 2 1 - Exam PHYSICAL EXAMINATION: HEENT: Head is atraumatic, normocephalic. Pupils equal, round. Neck is supple. There is no elevated jugular venous pressure. HEART EXAMINATION: S1 and S2 systolic murmur is heard. CHEST EXAMINATION: Lungs reveal scattered coarse wheezes throughout. ABDOMEN: Soft, obese, distended, nontender. Bowel sounds are heard. No organomegaly noted. EXTREMITIES: 2+ peripheral pulses with no evidence of peripheral edema and no calf tenderness noted. NEUROLOGIC patient is awake, alert and oriented -3. . - Labs CBC & Chem 7: 10/17/16 05:48 10/17/16 05:48 Labs: Abnormal Lab Results - Last 24 Hours (Table) 10/18/16 10/18/16 10/19/16 Range/Units 17:04 21:13 05:55 POC Glucose (mg/dL) 263 H 246 H 108 H (75-99) mg/dL 10/19/16 Range/Units 11:37 POC Glucose (mg/dL) 137 H (75-99) mg/dL Assessment and Plan (1) HTN (hypertension) Status: Acute (2) Hyperlipemia Status: Acute (3) Sleep apnea Status: Acute (4) AV trip re-entry tachycardia Status: Acute (5) COPD exacerbation Status: Acute (6) Dyspnea Status: Acute (7) Pneumonia Status: Acute Plan: From cardiology's perspective, we'll recommend to continue to monitor the patient for 24 hours, if the rhythm remained stable plan for discharge home in the morning. DNP note has been reviewed, I agree with a documented findings and plan of care. Patient was seen and examined.
[2016-10-19 15:01] VITALS: BP 127/82; PULSE 76
--- NOTE | 2016-10-19 15:03 | P.PN ---
Subjective 71-year-old morbidly obese male of Dr. Beatty patient with past medical history of morbid obesity, COPD, obstructive sleep apnea maintained on BiPAP therapy at a pressure of 20/15 cm of water on outpatient basis in addition to history of diastolic congestive heart failure, history of CAD and hyperglycemia who apparently has been having worsening dyspnea and shortness of breath with cough productive dark phlegm along with worsening wheezes for the last few weeks. Patient seen Dr. Rodriguez pulmonary also seen cardiology and seen his primary care physician. Antibiotics and steroid were dispensed by his primary care physician recently where patient had dry without any Loc continued to become much sicker in the last few days. Was seen his primary care physician today and refer to the emergency department at [facility] where patient was seen and evaluated, found to have in mild respiratory distress, chest x-ray failed to show any infiltrate or pneumonia patient has CO2 retention and worsening symptoms. Patient was started on O2, updraft treatment, Solu-Medrol and antibiotic for atypical pneumonitis and admitted to the hospital with the above problem On 10/17/2016 the patient is being seen in follow-up. He is doing well and he has no specific complaints. No major respiratory distress. He is having some issues with sinus tachycardia and he was seen by cardiology and the Lopressor dose was increased. His chest x-ray from today is essentially clear and there is no acute pulmonary infiltration. The patient has a slight congestion and cough. No wheezes. No chest pain. No swelling in the lower extremities. I checked his machine and the patient has a BiPAP machine which is set at a pressure of 20/15 cm of water. He is also utilizing a Mirage Quattro fullface mask. On 10/18/2016 the patient is still doing well from the pulmonary standpoint. He was having issues with AV node reentry tachycardia, and for this reason the patient is still being monitored here in the hospital. Cardiology is on the case. From the home a standpoint, there is been no major respiratory difficulties and the patient has been essentially stable without any cough chest that is so wheezing at this point. No swelling lower extremities. No chest pain. Utilizing the BiPAP every night without any interruptions. On 10/19/2016 the patient remains quite stable. No magistral difficulties. He was having a sinus rhythm with frequent PACs and today's cardiac rhythm is more regular. No major respiratory distress. He is utilizing his BiPAP overnight at the pressure of 20/50 cm of water. He typically follows up with Dr. Rodriguez in regards to his COPD. the patient is also on a prednisone burst taper and is also on 40 mg of prednisone for now. Objective - Vital Signs Vital signs: Vital Signs Temp 97.6 F 10/19/16 08:00 Pulse 78 10/19/16 13:45 Resp 16 10/19/16 08:00 BP 120/77 10/19/16 08:00 Pulse Ox 97 10/19/16 08:00 Intake & Output 10/18/16 10/19/16 10/19/16 18:59 06:59 18:59 Intake Total 1360 120 472 Output Total 800 Balance 1360 -680 472 Weight 114.3 kg Intake: Oral 1360 120 472 Output: Urine 800 Other: Voiding Method Toilet Toilet Toilet Urinal Urinal Urinal # Voids 1 2 1 - Exam Head exam was generally normal. There was no scleral icterus or corneal arcus. Mucous membranes were moist. Neck is short and supple and there is significant crowding of the posterior pharynx. There is no goiter or neck masses. Lungs sounds are diminished and there is no wheezes on today's evaluation. Heart sounds are slightly tachycardic, positive S1-S2 and there is no significant murmurs appreciated.Abdominal exam revealed normal bowel sounds. The abdomen was soft, non-tender, and without masses, organomegaly, or appreciable enlargement of the abdominal aorta.Examination of the extremities revealed easily palpable radial, femoral and pedal pulses. There was no cyanosis, clubbing or edema. - Labs CBC & Chem 7: 10/17/16 05:48 10/17/16 05:48 Labs: Abnormal Lab Results - Last 24 Hours (Table) 10/18/16 10/18/16 10/19/16 Range/Units 17:04 21:13 05:55 POC Glucose (mg/dL) 263 H 246 H 108 H (75-99) mg/dL 10/19/16 Range/Units 11:37 POC Glucose (mg/dL) 137 H (75-99) mg/dL Assessment and Plan Plan: 1 acute respiratory distress due to bilateral pneumonia, possible aspiration pneumonia and COPD exacerbation: Patient has improved considerably and at this point in time he has no significant respiratory distress. The follow-up chest x -ray done today showed no acute abnormalities. On 10/19/2016 the patient remains stable as he completed his prednisone burst taper. He is also completing a course of Levaquin. No magistral distress. 2 COPD exacerbation: The patient was taken off the IV Solu-Medrol he is currently on a prednisone burst taper. He will be discharged home on his Symbicort as maintenance and albuterol nebulized treatment as needed. 3 secondary of sleep apnea maintained on BiPAP at a pressure of 20/15 4 hypertension: 5 hyperlipidemia: 6 atherosclerotic heart disease: Patient had recent cardiac testing with stress and echo with no significant change since. 7 obesity 8. Hyperglycemia secondary to possible diabetes mellitus type 2 versus side effects from steroids. Continue insulin. 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 Continue the Levaquin and the prednisone burst taper. Continue the bronchodilators.
--- NOTE | 2016-10-24 10:41 | P.DS ---
Providers Date of admission: 10/13/16 14:03 Expected date of discharge: 10/19/16 Attending physician: Nehemias Turner Consults: 10/16/16 09:27 Consult Physician Urgent Consulting Provider: Luis Black Consult Reason/Comments: tachycardic Do you want consulting provider notified?: Yes Primary care physician: [facility] Course: 71-year-old morbidly obese male of Dr. Beatty patient with past medical history of morbid obesity, COPD, diastolic congestive heart failure, history of CAD and hyperglycemia who apparently has been having worsening dyspnea and shortness of breath with cough productive dark phlegm along with worsening wheezes for the last few weeks. Patient seen Dr. Rodriguez pulmonary also seen cardiology and seen his primary care physician. Antibiotics and steroid were dispensed by his primary care physician recently where patient had dry without any Loc continued to become much sicker in the last few days. Was seen his primary care physician today and refer to the emergency department at [facility] where patient was seen and evaluated, found to have in mild respiratory distress, chest x-ray failed to show any infiltrate or pneumonia patient has CO2 retention and worsening symptoms. Patient was started on O2, updraft treatment, Solu-Medrol and antibiotic for atypical pneumonitis and admitted to the hospital with the above problem. 10/14: Patient has been seen by Dr. Wang. He is currently on Solu-Medrol 60 mg IV every 6 hours. He is noted to have hyperglycemia and is on insulin drip. CAT scan of the chest has been ordered. Repeat EKG is a sinus rhythm. BUN 37 and creatinine 1.49. 10/15: CAT scan of the chest showed bilateral pneumonia and atelectasis at the lung bases in the posterior basal segments. Small hiatal hernia and mild atherosclerotic vascular disease. Patient does not feel he has been choking but he does wake up in the night coughing and history of gastric reflux. Esophagram ordered for Monday to assess for reflux and aspiration. Antibiotics switched to Zosyn and Levaquin. Blood sugars have been running 160 to 208. Morning lab work is pending. 10/16: Patient is breathing much better sugar still mildly elevated and he was not in any medication at home patient be switched to subcu Lantus along with NovoLog before meals meals. Also had 2 episodes of tachycardia lasted for sure. Of time with suspicion for A. fib patient be seen cardiology. He is planning to go home on Monday or Monday if is ready. 10/17: Patient was transferred to the [facility] for SVT and followed by cardiology. Metoprolol was increased to 75 mg twice daily. He did have repeat episode this morning of 180 bpm. Pulse ox is 94% with ambulation and patient will not require home oxygen. Patient is willing to start insulin at home. Anticipate possible discharge in the next 24 hours. He has been continued on BiPAP at night. Patient is now agreeable for home care. 10/18: Heart rate continues to be intermittently elevated especially with activity. Cardiology has increased metoprolol to 100 mg twice daily.his respiratory status remains stable and he has been ambulating without increased shortness of breath. He is using BiPAP at night.he is continued on oral prednisone. 10/19: Heart rate is running 64-84 in normal sinus rhythm. Patient states his breathing is improved. No need for home oxygen. Patient has been using BiPAP at night. He is to follow-up with Dr. Rodriguez. Patient will be discharged home today in stable condition. Discharge diagnoses: 1 acute respiratory distress due to bilateral pneumonia, possible aspiration pneumonia and COPD exacerbation 2 COPD exacerbation 3 severe purulent tracheal bronchitis and early pneumonitis 4 hypertension 5 hyperlipidemia 6 atherosclerotic heart disease 7 obstructive sleep apnea 8. Hyperglycemia secondary to diabetes mellitus type 2 and side effects from steroids. New diagnosis of diabetes mellitus type 2 9. AV node reentry tachycardia. 10. Chronic kidney disease stage IIIA Discharge plan: Return home with [facility] Impression and plan of care have been directed as dictated by the signing physician. Lay Elizabeth nurse practitioner acting as scribe for signing physician. Patient Condition at Discharge: Good Plan - Discharge Summary New Discharge Prescriptions: Budesonide-Formot 160-4.5 Mcg [Symbicort 160-4.5 Mcg Inhaler] 2 puff INHALATION RT-BID #60 puff Insulin Glargine,Hum.rec.anlog [Lantus Solostar] 23 unit SQ HS #3 ml Insulin Lispro [humaLOG Kwikpen] 100 unit SQ ACHS #3 insuln.pen Ipratropium-Albuterol Nebulize [Duoneb 0.5 mg-3 mg/3 ml Soln] 3 ml INHALATION Q6HR #120 ampul.neb Levofloxacin [Levaquin] 750 mg PO Q48H #3 tab Losartan [Cozaar] 150 mg PO DAILY #90 tab Metoprolol Tartrate [Lopressor] 100 mg PO BID #120 tab predniSONE 0 mg PO DIRECTED #40 tab Discharge Medication List Simvastatin 20 mg PO HS 06/23/14 [History] Aspirin EC [Ecotrin Low Dose] 81 mg PO DAILY 10/13/16 [History] amLODIPine [Norvasc] 5 mg PO DAILY 10/13/16 [History] Budesonide-Formot 160-4.5 Mcg [Symbicort 160-4.5 Mcg Inhaler] 2 puff INHALATION RT-BID #60 puff 10/17/16 [Rx] Insulin Glargine,Hum.rec.anlog [Lantus Solostar] 23 unit SQ HS #3 ml 10/17/16 [ Rx] Insulin Lispro [humaLOG Kwikpen] 100 unit SQ ACHS #3 insuln.pen 10/17/16 [Rx] Ipratropium-Albuterol Nebulize [Duoneb 0.5 mg-3 mg/3 ml Soln] 3 ml INHALATION Q6HR #120 ampul.neb 10/17/16 [Rx] Levofloxacin [Levaquin] 750 mg PO Q48H #3 tab 10/17/16 [Rx] Losartan [Cozaar] 150 mg PO DAILY #90 tab 10/17/16 [Rx] predniSONE 0 mg PO DIRECTED #40 tab 10/17/16 [Rx] Metoprolol Tartrate [Lopressor] 100 mg PO BID #120 tab 10/19/16 [Rx] Follow up Appointment(s)/Referral(s): Lei Wang DO [Doctor of Osteopathic Medicine] - 11/07/16 9:30 am [facility], [NON-STAFF] - Tomasz Isbell DO [Primary Care Provider] - 1 Week (office is closed , please make appointment in the morning for one week follow up) Patient Instructions/Handouts: How to Check Your Blood Sugar (DC), Foot Care for People with Diabetes (DC), Type 2 Diabetes in Adults (DC), Basic Carbohydrate Counting (DC) Discharge Disposition: HOME SELF-CARE
== END 2016-10-19 16:21 | disposition home or self-care (01) | DRG 190 ==
LOC: EC 11:59 → 5MS5E 14:03 → 6SEL 10-16 20:40
PROVIDERS: ADMIT Internal Medicine Geriatric Medicine; ATTEND Internal Medicine Geriatric Medicine
DX: J44.1 Chronic obstructive pulmonary disease with (acute) exacerbation (principal); J69.0 Pneumonitis due to inhalation of food and vomit; I45.89 Other specified conduction disorders; I13.0 Hypertensive heart and chronic kidney disease with heart failure and stage 1 through stage 4 chronic kidney disease, or unspecified chronic kidney disease; E11.65 Type 2 diabetes mellitus with hyperglycemia; E11.22 Type 2 diabetes mellitus with diabetic chronic kidney disease; I50.32 Chronic diastolic (congestive) heart failure; I50.30 Unspecified diastolic (congestive) heart failure; I47.1 Supraventricular tachycardia; R13.10 Dysphagia, unspecified; N18.3 Chronic kidney disease, stage 3 (moderate); T38.0X5A Adverse effect of glucocorticoids and synthetic analogues, initial encounter; I25.10 Atherosclerotic heart disease of native coronary artery without angina pectoris; I49.1 Atrial premature depolarization; J44.0 Chronic obstructive pulmonary disease with (acute) lower respiratory infection; N18.9 Chronic kidney disease, unspecified; G47.33 Obstructive sleep apnea (adult) (pediatric); I25.2 Old myocardial infarction; K21.9 Gastro-esophageal reflux disease without esophagitis; E78.5 Hyperlipidemia, unspecified; R53.1 Weakness; K44.9 Diaphragmatic hernia without obstruction or gangrene; H91.90 Unspecified hearing loss, unspecified ear; Z79.82 Long term (current) use of aspirin; Z82.49 Family history of ischemic heart disease and other diseases of the circulatory system; Z83.3 Family history of diabetes mellitus; Z79.899 Other long term (current) drug therapy; Z87.01 Personal history of pneumonia (recurrent); Z95.5 Presence of coronary angioplasty implant and graft; Z98.52 Vasectomy status; Z90.49 Acquired absence of other specified parts of digestive tract; Z82.3 Family history of stroke; Z84.1 Family history of disorders of kidney and ureter; Z82.0 Family history of epilepsy and other diseases of the nervous system
CPT/HCPCS: 36415; 36600; 71020; 71250; 80053; 82550; 82553; 82805; 83036; 83735; 84439; 84443; 84484; 85025; 85610; 85730; 93005; 94640; 94660; 94760; 96374; 99285

== ENCOUNTER 2016-12-07 20:24 | Emergency (ER) | payer MEDICARE ==
[2016-12-07 21:09] VITALS: BP 106/67; PULSE 79; RESP 18; TEMP 97.8
--- NOTE | 2016-12-07 21:45 | XR ---
EXAMINATION TYPE: XR knee complete LT DATE OF EXAM: 12/07/2016 9:39 PM COMPARISON: NONE HISTORY: Knee pain TECHNIQUE: 3 views FINDINGS: There is narrowing of the medial joint space. There is spurring of the femoral and tibial c ondyles. There is spurring of the patella. There is narrowing of the patellofemoral joint space. I se e no fracture. There is mild lateral tibial subluxation. IMPRESSION: No fracture. Moderate hypertrophic osteoarthritis.
--- NOTE | 2016-12-07 21:50 | ED ---
General Adult HPI - General Chief complaint: Fall Stated complaint: Fall/knee pain Time Seen by Provider: 12/07/16 21:19 Source: patient, RN notes reviewed Mode of arrival: wheelchair Limitations: no limitations - History of Present Illness Initial comments: this is a 71-year-old male who presents with left knee pain that started today. Patient states he slipped in the mud and landed on his left knee. Patient states his left leg was fully flexed when he landed on it. Patient states he is able to ambulate but this is painful. Patient denies any numbness/tingling or weakness to the left lower extremity. Patient is unsure if there is any swelling because he states he hasn't looked. Patient denies hitting his head or losing consciousness. Patient denies being on any anticoagulants. Patient denies any recent fever, chills, shortness breath, chest pain, abdominal pain, nausea/vomiting/diarrhea, back pain, hematuria, headache, or visual changes, or any other complaints. - Related Data Home Medications Medication Instructions Recorded Confirmed Aspirin EC [Ecotrin Low Dose] 81 mg PO DAILY 10/13/16 12/07/16 Atorvastatin [Lipitor] 40 mg PO HS 12/07/16 12/07/16 Furosemide [Lasix] 40 mg PO BID 12/07/16 12/07/16 Insulin Lispro [humaLOG Kwikpen] See Protocol SQ ACHS 12/07/16 12/07/16 Losartan [Cozaar] 50 mg PO DAILY 12/07/16 12/07/16 Potassium Chloride ER [K-Dur 20] 20 meq PO Q8H 12/07/16 12/07/16 amLODIPine [Norvasc] 10 mg PO DAILY 12/07/16 12/07/16 Previous Rx's Medication Instructions Recorded Budesonide-Formot 160-4.5 Mcg 2 puff INHALATION RT-BID #60 puff 10/17/16 [Symbicort 160-4.5 Mcg Inhaler] Insulin Glargine,Hum.rec.anlog 23 unit SQ HS #3 ml 10/17/16 [Lantus Solostar] Metoprolol Tartrate [Lopressor] 100 mg PO BID #120 tab 10/19/16 Ipratropium-Albuterol Nebulize 3 ml INHALATION RT-Q6H PRN #120 12/07/16 [Duoneb 0.5 mg-3 mg/3 ml Soln] ampul.neb Allergies Allergy/AdvReac Type Severity Reaction Status Date / Time No Known Allergies Allergy Verified 12/07/16 21:19 Review of Systems ROS Statement: Those systems with pertinent positive or pertinent negative responses have been documented in the HPI. ROS Other: All systems not noted in ROS Statement are negative. Past Medical History Past Medical History: Coronary Artery Disease (CAD), Chest Pain / Angina, COPD, Hypertension, Myocardial Infarction (OR), Pneumonia, Sleep Apnea/CPAP/BIPAP Additional Past Medical History / Comment(s): STARTED HAD A FLU VACCINE BUT CAN' T REMEMBER WHEN HE GOT IT-CALLED PCP -NO RECORD OF HAVING IT THERE. Last Myocardial Infarction Date:: 2011 History of Any Multi-Drug Resistant Organisms: None Reported Past Surgical History: Cholecystectomy, Heart Catheterization With Stent, Hernia Repair Additional Past Surgical History / Comment(s): UMBILICAL HERNIA REPAIR.VASECTOMY Past Anesthesia/Blood Transfusion Reactions: No Reported Reaction Date of Last Stent Placement:: 2011 Past Psychological History: No Psychological Hx Reported Smoking Status: Never smoker Past Alcohol Use History: None Reported Past Drug Use History: None Reported - Past Family History Father Family Medical History: CVA/TIA, Hypertension, Myocardial Infarction (OR) Additional Family Medical History / Comment(s): AT AGE 73-OR Mother Family Medical History: Dementia, Renal Disease Additional Family Medical History / Comment(s): AT AGE 56 COMPLICATIONS FROM DIABETES General Exam - General Exam Comments Initial Comments: General: The patient is awake and alert, in no distress, and does not appear acutely ill. Neck: The neck is supple, there is no tenderness or JVD. Cardiovascular: There is a regular rate and rhythm. No murmur, rub or gallop is appreciated. Respiratory: Lungs are clear to auscultation, respirations are non-labored, breath sounds are equal. No wheezes, stridor, rales, or rhonchi. Musculoskeletal: There is tenderness to palpation over the medial aspect of the left knee with some swelling noted to this area. No ecchymosis. There is also tenderness to palpation of the posterior knee. patient is able to flex the knee to approximately 110. Patient also has tenderness to the lateral aspect of the left ankle with swelling in this area as well. Patient admits to some chronic bilateral ankle swelling. Patient has full range of motion of the ankle. Patient has strength 5/5 and Sensation intact. posterior tibial pulses 2 + bilaterally. Capillary refill is normal at less than 2 seconds. Neurological: A&O x 3. CN II-XII intact, There are no obvious motor or sensory deficits. Coordination appears grossly intact. Speech is normal. Skin: Skin is warm and dry and no rashes or lesions are noted. Psychiatric: Normal mood and affect. Limitations: no limitations Course Vital Signs 12/07/16 21:06 Temperature 97.8 F Pulse Rate 79 Respiratory 18 Rate Blood Pressure 106/67 O2 Sat by Pulse 95 Oximetry Medical Decision Making - Medical Decision Making this is a 71-year-old male presents left knee pain after falling today. On physical exam There is tenderness to palpation over the medial aspect of the left knee with some swelling noted to this area. No ecchymosis. There is also tenderness to palpation of the posterior knee. patient is able to flex the knee to approximately 110. Patient also has tenderness to the lateral aspect of the left ankle with swelling in this area as well. Patient admits to some chronic bilateral ankle swelling. Patient has full range of motion of the ankle. Patient has strength 5/5 and Sensation intact. posterior tibial pulses 2 + bilaterally. Capillary refill is normal at less than 2 seconds. An x-ray of the left knee was done and reviewed showing: No fracture. Moderate hypertrophic osteoarthritis. Reported by Dr. Arango. An x-ray the left ankle is done and reviewed showing: Calcaneal spurring. No fracture. Report by Dr. Arango. discussed the results with patient. I discussed rest, ice, elevate and use Asa wraps and air cast for compression to the knee and ankle. I discussed Tylenol and Motrin for pain. I discussed that if patient's symptoms are not improving in the next 2-3 days or if he feels any instability of the left knee while ambulating the patient is to follow-up with orthopedics. Patient states he has crutches at home that he can use for ambulation if needed. I discussed return parameters. Discussed that patient should follow up with PCP in one to 2 days or return to the [facility] for any worsening symptoms or for any further concerns. Patient and family were receptive to this plan and patient will be discharged home. I discussed this case with attending physician Dr. Jose who agrees the plan as stated above. Disposition Clinical Impression: Knee sprain, Ankle sprain Disposition: HOME SELF-CARE Condition: Good Instructions: Ankle Sprain (ED), Knee Sprain (ED) Additional Instructions: please rest, ice, elevate and use Asa wrap and Aircast as needed. Please use Tylenol or Motrin for pain. Please use crutches as needed for ambulation. If symptoms have not improved in the next 2-3 days please follow-up with orthopedics. Otherwise follow-up with your primary care physician in the next 1 -2 days or return to the [facility] for any worsening symptoms or for any further concerns. Referrals: Tomasz Isbell DO [Primary Care Provider] - 1-2 days Fuentes Bustos MD [STAFF PHYSICIAN] - 1-2 days Time of Disposition: 10:30
--- NOTE | 2016-12-07 22:13 | XR ---
EXAMINATION TYPE: XR ankle complete LT DATE OF EXAM: 12/07/2016 10:02 PM COMPARISON: NONE HISTORY: Fell today TECHNIQUE: 3 views FINDINGS: There are plantar and Achilles calcaneal spurs. I see no fracture nor dislocation. There ar e no erosions. There is mild soft tissue swelling over the lateral malleolus. IMPRESSION: Calcaneal spurring. No fracture.
== END 2016-12-07 22:27 | disposition home or self-care (01) ==
LOC: EC 20:24
DX: S83.92XA Sprain of unspecified site of left knee, initial encounter (principal); S93.402A Sprain of unspecified ligament of left ankle, initial encounter; W01.0XXA Fall on same level from slipping, tripping and stumbling without subsequent striking against object, initial encounter; J44.9 Chronic obstructive pulmonary disease, unspecified; I10 Essential (primary) hypertension; Z95.5 Presence of coronary angioplasty implant and graft; Z79.899 Other long term (current) drug therapy; Z79.82 Long term (current) use of aspirin; Z79.4 Long term (current) use of insulin; Z79.51 Long term (current) use of inhaled steroids
CPT/HCPCS: 99283

== ENCOUNTER → 2016-12-30 | Outpatient (CLI) | payer MEDICARE ==
--- NOTE | 2016-12-30 12:33 | US ---
EXAMINATION TYPE: US venous doppler duplex LE DATE OF EXAM: 12/30/2016 10:57 AM COMPARISON: Previous study dated 05/27/2016. CLINICAL HISTORY: Deep Vein Thrombosis I82.402. Patient states falling on his left leg. Left leg jerrica n. On aspirin. SIDE PERFORMED: Bilateral TECHNIQUE: The lower extremity deep venous system is examined utilizing real time linear array sonog shannan with graded compression, doppler sonography and color-flow sonography. VESSELS IMAGED: External Iliac Vein (EIV) Common Femoral Vein Deep Femoral Vein Greater Saphenous Vein * Femoral Vein Popliteal Vein Small Saphenous Vein * Proximal Calf Veins (* superficial vessels) No popliteal fossa lesion was seen. Right Leg: Appears negative for DVT Left Leg: Appears negative for DVT IMPRESSION: THIS EXAMINATION IS NEGATIVE FOR DVT IN BOTH LEGS.
== END | disposition home or self-care (01) ==
LOC: RADUSWWP 10:17
PROVIDERS: ATTEND Family Medicine
DX: I82.402 Acute embolism and thrombosis of unspecified deep veins of left lower extremity (principal)
CPT/HCPCS: 93970

== ENCOUNTER → 2017-04-18 | Outpatient (CLI) | payer MEDICARE ==
--- NOTE | 2017-04-18 11:58 | XR ---
EXAMINATION TYPE: XR chest 2V DATE OF EXAM: 04/18/2017 COMPARISON: 10/17/2016 INDICATION: COPD TECHNIQUE: Frontal and lateral views of the chest are obtained. FINDINGS: The heart size is normal. The pulmonary vasculature is normal. The lungs are clear. IMPRESSION: 1. No acute pulmonary process.
== END | disposition home or self-care (01) ==
LOC: RADXRMAIN 11:38
PROVIDERS: ATTEND Family Medicine
DX: J44.0 Chronic obstructive pulmonary disease with (acute) lower respiratory infection (principal); I50.40 Unspecified combined systolic (congestive) and diastolic (congestive) heart failure
CPT/HCPCS: 71020

== ENCOUNTER 2017-04-30 10:45 | Emergency (ER) | payer MEDICARE ==
[2017-04-30] MEDS ORDERED: ASPIRIN 81 MG PO STA (11:03)
--- NOTE | 2017-04-30 11:06 | ED ---
Chest Pain HPI - General Chief Complaint: Chest Pain Stated Complaint: chest pain Time Seen by Provider: 04/30/17 10:52 Source: patient, RN notes reviewed Mode of arrival: wheelchair Limitations: no limitations - History of Present Illness Initial Comments: This is a 72-year-old male who states he had the onset around 9:30 this morning of sharp lower sternal chest pain 9/10 in severity that radiated up to the right side of his neck it last about an hour and then spontaneously went away. He's never had pain like this before denies any fevers chills nausea vomiting sweats or other symptoms. He states he did have a small heart attack years ago. Is a nonsmoker nondrinker. He voices no other complaints and again is pain-free at this time. MD Complaint: chest pain - Related Data Home Medications Medication Instructions Recorded Confirmed Aspirin EC [Ecotrin Low Dose] 81 mg PO DAILY 10/13/16 04/30/17 Furosemide [Lasix] 40 mg PO BID 12/07/16 04/30/17 Insulin Lispro [humaLOG Kwikpen] See Protocol SQ ACHS 12/07/16 04/30/17 Losartan [Cozaar] 50 mg PO DAILY 12/07/16 04/30/17 Potassium Chloride ER [K-Dur 20] 20 meq PO DAILY 12/07/16 04/30/17 amLODIPine [Norvasc] 10 mg PO DAILY 12/07/16 04/30/17 Atorvastatin [Lipitor] 40 mg PO HS 04/30/17 04/30/17 Previous Rx's Medication Instructions Recorded Budesonide-Formot 160-4.5 Mcg 2 puff INHALATION RT-BID #60 puff 10/17/16 [Symbicort 160-4.5 Mcg Inhaler] Insulin Glargine,Hum.rec.anlog 23 unit SQ HS #3 ml 10/17/16 [Lantus Solostar] Metoprolol Tartrate [Lopressor] 100 mg PO BID #120 tab 10/19/16 Ipratropium-Albuterol Nebulize 3 ml INHALATION RT-Q6H PRN #120 12/07/16 [Duoneb 0.5 mg-3 mg/3 ml Soln] ampul.neb Allergies Allergy/AdvReac Type Severity Reaction Status Date / Time No Known Allergies Allergy Verified 04/30/17 11:24 Review of Systems ROS Statement: Those systems with pertinent positive or pertinent negative responses have been documented in the HPI. ROS Other: All systems not noted in ROS Statement are negative. EKG Findings - EKG Results: EKG: interpreted by BARBARA, sinus rhythm (Says bradycardia rate of 48 NC interval is 176 QRS duration 92 QT since QTC of 456/47 moderate voltage criteria for LVH no acute ST-T wave changes) Past Medical History Past Medical History: Coronary Artery Disease (CAD), Chest Pain / Angina, COPD, Hypertension, Myocardial Infarction ([place]), Pneumonia, Sleep Apnea/CPAP/BIPAP Additional Past Medical History / Comment(s): STARTED HAD A FLU VACCINE BUT CAN' T REMEMBER WHEN HE GOT IT-CALLED PCP -NO RECORD OF HAVING IT THERE. Last Myocardial Infarction Date:: 2011 History of Any Multi-Drug Resistant Organisms: None Reported Past Surgical History: Cholecystectomy, Heart Catheterization With Stent, Hernia Repair Additional Past Surgical History / Comment(s): UMBILICAL HERNIA REPAIR.VASECTOMY Past Anesthesia/Blood Transfusion Reactions: No Reported Reaction Date of Last Stent Placement:: 2011 Past Psychological History: No Psychological Hx Reported Smoking Status: Never smoker Past Alcohol Use History: None Reported Past Drug Use History: None Reported - Past Family History Father Family Medical History: CVA/TIA, Hypertension, Myocardial Infarction ([place]) Additional Family Medical History / Comment(s): AT AGE 73-[place] Mother Family Medical History: Dementia, Renal Disease Additional Family Medical History / Comment(s): AT AGE 56 COMPLICATIONS FROM DIABETES General Exam - General Exam Comments Initial Comments: This is a well-developed well-nourished awake alert oriented 3 male Limitations: no limitations General appearance: alert, in no apparent distress Head exam: Present: atraumatic, normocephalic, normal inspection Eye exam: Present: normal appearance, PERRL, EOMI. Absent: scleral icterus, conjunctival injection, periorbital swelling ENT exam: Present: normal exam, mucous membranes moist Neck exam: Present: normal inspection. Absent: tenderness, meningismus, lymphadenopathy Respiratory exam: Present: normal lung sounds bilaterally. Absent: respiratory distress, wheezes, rales, rhonchi, stridor Cardiovascular Exam: Present: regular rate, normal rhythm, normal heart sounds. Absent: systolic murmur, diastolic murmur, rubs, gallop, clicks GI/Abdominal exam: Present: soft, normal bowel sounds. Absent: distended, tenderness, guarding, rebound, rigid Extremities exam: Present: normal inspection, full ROM, normal capillary refill. Absent: tenderness, pedal edema, joint swelling, calf tenderness Back exam: Present: normal inspection Neurological exam: Present: alert, oriented X3, CN II-XII intact Psychiatric exam: Present: normal affect, normal mood Skin exam: Present: warm, dry, intact, normal color. Absent: rash Course Vital Signs 04/30/17 04/30/17 04/30/17 10:46 11:49 12:53 Temperature 97.0 F L 98.0 F Pulse Rate 50 L 45 L 44 L Respiratory 20 18 24 Rate Blood Pressure 149/71 139/55 O2 Sat by Pulse 100 97 98 Oximetry Chest Pain MDM - MDM I did review the imaging and reports no acute findings. Patient's had no further symptoms during the time in emergency department he did have a normal stress test on this past winter he states. His laboratory thus far is unremarkable he will be discharged to follow-up with his doctor return when necessary Disposition Clinical Impression: Atypical chest pain Disposition: HOME SELF-CARE Condition: Good Instructions: Chest Pain (ED) Referrals: Tomasz Isbell DO [Primary Care Provider] - 1-2 days
[2017-04-30 11:24] LABS: Basophils % (A) 0 %; CH 31.1; CHCM 35.3; Eosinophils # (A) 0.1 k/uL (0-0.7); Eosinophils % (A) 2 %; HCT 35.8 % (39.0-53.0); HDW 3.04; HGB 12.6 gm/dL (13.0-17.5); Luc # (Auto) 0.17; Luc % (Auto) 3; Lymphocytes # (A) 0.9 k/uL (1.0-4.8); Lymphocytes % (A) 14 %; MCH 31.1 pg (25.0-35.0); MCHC 35.1 g/dL (31.0-37.0); MCV 88.5 fL (80.0-100.0); Mean Platelet Volume 7.1; Monocytes # (A) 0.5 k/uL (0-1.0); Monocytes % (A) 7 %; Neutrophils # (A) 4.7 k/uL (1.3-7.7); Neutrophils % (A) 74 %; RBC 4.04 m/uL (4.30-5.90); RDW 15.1 % (11.5-15.5); WBC 6.3 k/uL (3.8-10.6); WBC (Perox) 6.18
--- NOTE | 2017-04-30 11:32 | XR ---
EXAMINATION TYPE: XR chest 2V DATE OF EXAM: 04/30/2017 COMPARISON: 04/18/2017 HISTORY: 72-year-old male with chest pain TECHNIQUE: AP and lateral views FINDINGS: Heart is upper limits of normal in size. Aorta and pulmonary vasculature within normal limits. Mild i nterstitial prominence likely technical due to portable technique and large body habitus. No consolid ation or pleural effusion. IMPRESSION: Heart at the upper limits of normal in size. No acute process seen.
[2017-04-30 11:33] LABS: Calcium 9.6 mg/dL (8.4-10.2); Potassium 3.9 mmol/L (3.5-5.1); Total Bilirubin 1.6 mg/dL (0.2-1.3); Total Protein 6.7 g/dL (6.3-8.2)
[2017-04-30 11:37] LABS: INR 1.1 (<1.2); Prothrombin Time 10.7 sec (9.0-12.0)
[2017-04-30 11:38] LABS: Partial Thromboplastin Time 27.1 sec (22.0-30.0)
[2017-04-30 11:44] LABS: Creatine Kinase 329 U/L (55-170)
[2017-04-30 11:58] LABS: Troponin I <0.012 ng/mL (0.000-0.034)
[2017-04-30 12:00] LABS: Creatine Kinase MB 5.7 ng/mL (0.0-2.4)
[2017-04-30 12:54] VITALS: BP 139/55; PULSE 44; RESP 24; TEMP 98
== END 2017-04-30 13:00 | disposition home or self-care (01) ==
LOC: EC 10:45
DX: R07.89 Other chest pain (principal); M54.2 Cervicalgia; I25.10 Atherosclerotic heart disease of native coronary artery without angina pectoris; I25.2 Old myocardial infarction; I10 Essential (primary) hypertension; Z95.5 Presence of coronary angioplasty implant and graft; Z79.4 Long term (current) use of insulin; Z79.82 Long term (current) use of aspirin; Z79.899 Other long term (current) drug therapy
CPT/HCPCS: 36415; 71020; 80053; 82150; 82550; 82553; 83690; 83735; 83880; 84484; 85025; 85379; 85610; 85730; 93005; 99285

== ENCOUNTER 2017-05-24 11:44 | Day surgery (SDC) | payer MEDICARE ==
[2017-05-23 09:18] VITALS: BMI 35.4
[~2017-05-24 11:44] MED LIST: LACTATED RINGERS 1,000 ML IV ONE
[2017-05-24 12:39] VITALS: TEMP 97.7
[2017-05-24] MEDS ORDERED: LIDOCAINE 1% 20 ML VIAL (10MG/ML) FOR IV START INTRADERMA ONE (12:50)
[2017-05-24 13:02] LABS: Glucose,Whole Blood 104 mg/dL (75-99)
[2017-05-24] MEDS ORDERED: PROPOFOL 10 MG/ML 20 ML VIAL IV ONE (13:59)
--- NOTE | 2017-05-24 14:05 | P.GSHP ---
History of Present Illness H&P Date: 05/24/17 Chief Complaint: Screening colonoscopy This a 72-year-old male from Dr. Tomazs Isbell. Patient safe for screening colonoscopy. Past Medical History Past Medical History: Coronary Artery Disease (CAD), COPD, Diabetes Mellitus, Hyperlipidemia, Hypertension, Myocardial Infarction ([place]), Pneumonia, Sleep Apnea /CPAP/BIPAP Additional Past Medical History / Comment(s): uses CPAP sometimes, postive for fecal blood Last Myocardial Infarction Date:: 2011 History of Any Multi-Drug Resistant Organisms: None Reported Past Surgical History: Cholecystectomy, Heart Catheterization With Stent, Hernia Repair Additional Past Surgical History / Comment(s): UMBILICAL HERNIA REPAIR.VASECTOMY Past Anesthesia/Blood Transfusion Reactions: No Reported Reaction Date of Last Stent Placement:: 2011 Smoking Status: Never smoker - Past Family History Father Family Medical History: CVA/TIA, Hypertension, Myocardial Infarction ([place]) Additional Family Medical History / Comment(s): AT AGE 73-[place] Mother Family Medical History: Dementia, Renal Disease Additional Family Medical History / Comment(s): AT AGE 56 COMPLICATIONS FROM DIABETES Medications and Allergies Home Medications Medication Instructions Recorded Confirmed Type Aspirin EC [Ecotrin Low Dose] 81 mg PO DAILY 10/13/16 05/24/17 History Metoprolol Tartrate [Lopressor] 100 mg PO BID #120 tab 10/19/16 05/23/17 Rx Furosemide [Lasix] 40 mg PO BID 12/07/16 05/23/17 History Insulin Lispro [humaLOG Kwikpen] See Protocol SQ ACHS 12/07/16 05/23/17 History Ipratropium-Albuterol Nebulize 3 ml INHALATION RT-Q6H PRN #120 12/07/16 Rx [Duoneb 0.5 mg-3 mg/3 ml Soln] ampul.neb Losartan [Cozaar] 50 mg PO DAILY 12/07/16 05/23/17 History Potassium Chloride ER [K-Dur 20] 20 meq PO DAILY 12/07/16 05/23/17 History amLODIPine [Norvasc] 10 mg PO DAILY 12/07/16 05/23/17 History Atorvastatin [Lipitor] 40 mg PO HS 04/30/17 05/23/17 History Budesonide-Formot 160-4.5 Mcg 2 puff INHALATION RT-BID PRN 05/23/17 05/23/17 History [Symbicort 160-4.5 Mcg Inhaler] Insulin Glargine,Hum.rec.anlog 23 units SQ HS 05/23/17 05/23/17 History [Cesar Clemens] Docusate [Colace] 100 mg PO BID #20 capsule 05/24/17 Rx HYDROcodone/APAP 7.5-325MG [Morris 1 each PO Q4H PRN #60 tab 05/24/17 Rx 7.5] Allergies Allergy/AdvReac Type Severity Reaction Status Date / Time No Known Allergies Allergy Verified 05/24/17 12:32 Surgical - Exam Vital Signs Temp Pulse Resp BP Pulse Ox 97.7 F 54 L 16 161/85 97 05/24/17 12:38 05/24/17 12:38 05/24/17 12:38 05/24/17 12:38 05/24/17 12:38 - General well developed, no distress - Eyes PERRL - ENT normal pinna - Neck no masses - Respiratory normal expansion - Cardiovascular Rhythm: regular - Abdomen Abdomen: soft, non tender Results - Labs Abnormal Lab Results - Last 24 Hours (Table) 05/24/17 Range/Units 12:44 POC Glucose (mg/dL) 104 H (75-99) mg/dL Assessment and Plan Plan: We'll perform screening colonoscopy
--- NOTE | 2017-05-24 14:19 | P.OP ---
Date of Procedure: 05/24/17 Preoperative Diagnosis: Screening colonoscopy Postoperative Diagnosis: Diverticulosis Procedure(s) Performed: Colonoscopy Implants: Anesthesia: MAC Surgeon: Dawson Rossi Pathology: none sent Condition: stable Disposition: PACU Indications for Procedure: Operative Findings: Description of Procedure: The patient's placed on the endoscopy table in the lateral position. He received IV sedation. Digital rectal exam was performed which revealed no abnormalities. The flexible colonoscope was then placed patient anus passed rotator entire colon. The ileocecal valve was visualized. The cecum, ascending and transverse colon appeared normal. In the descending and sigmoid colon there was mild diverticulosis. Scope was brought back the rectum and this appeared normal. Copious withdrawn for patient.
[2017-05-24 14:34] VITALS: RESP 18
[2017-05-24 15:01] VITALS: BP 131/70; PULSE 61
== END 2017-05-24 15:20 | disposition home or self-care (01) ==
LOC: ORWHC2ENDO 11:44
PROVIDERS: ATTEND Surgery
DX: Z12.11 Encounter for screening for malignant neoplasm of colon (principal); K57.30 Diverticulosis of large intestine without perforation or abscess without bleeding; I25.10 Atherosclerotic heart disease of native coronary artery without angina pectoris; J44.9 Chronic obstructive pulmonary disease, unspecified; E11.9 Type 2 diabetes mellitus without complications; Z79.4 Long term (current) use of insulin; I10 Essential (primary) hypertension; E78.5 Hyperlipidemia, unspecified; I25.2 Old myocardial infarction; G47.33 Obstructive sleep apnea (adult) (pediatric); Z99.89 Dependence on other enabling machines and devices; Z79.82 Long term (current) use of aspirin; Z79.899 Other long term (current) drug therapy
CPT/HCPCS: J2704; G0121; 45378

== ENCOUNTER 2017-09-21 14:05 | Inpatient (IN) | payer MEDICARE ==
[2017-09-21] MEDS ORDERED: IPRATROPIUM 0.5 MG/2.5 ML NEBU INHALATION STA (14:43)
[2017-09-21] MEDS ORDERED: ALBUTEROL NEBULIZED 2.5 MG/3 ML INHALATION STA (14:43)
[2017-09-21] MEDS ORDERED: methylPREDNISolone SOD SUCCI 125 MG/2 ML VIAL IV STA (14:43)
--- NOTE | 2017-09-21 14:47 | ED ---
General Adult HPI - General Chief complaint: Shortness of Breath Stated complaint: SOB Time Seen by Provider: 09/21/17 14:29 Source: patient, RN notes reviewed, old records reviewed Mode of arrival: wheelchair Limitations: no limitations - History of Present Illness Initial comments: 72-year-old male history of COPD and congestive heart failure presenting with worsening dyspnea. Patient has been wheezing, and cough productive of green sputum. The symptoms have been progressing over the past one week. Patient also has subjective fever and chills. Denies any central chest pain. Denies lower extremity edema or pain. Patient has had no nausea vomiting or diarrhea. Patient has been taking albuterol at home with minimal relief. Not currently on steroids. No history of tobacco use, patient has diagnosis of COPD secondary to occupational exposure. Patient was sent by his primary care physician after treatment with intramuscular steroids and antibiotics. - Related Data Home Medications Medication Instructions Recorded Confirmed Aspirin EC [Ecotrin Low Dose] 81 mg PO DAILY 10/13/16 09/21/17 Furosemide [Lasix] 40 mg PO BID 12/07/16 09/21/17 Insulin Lispro [humaLOG Kwikpen] See Protocol SQ ACHS 12/07/16 09/21/17 Losartan [Cozaar] 50 mg PO DAILY 12/07/16 09/21/17 amLODIPine [Norvasc] 10 mg PO DAILY 12/07/16 09/21/17 Budesonide-Formot 160-4.5 Mcg 2 puff INHALATION RT-BID PRN 05/23/17 09/21/17 [Symbicort 160-4.5 Mcg Inhaler] Atorvastatin [Lipitor] 80 mg PO HS 09/21/17 09/21/17 Insulin Glargine,Hum.rec.anlog 23 unit SQ 09/21/17 09/21/17 [Lantus Solostar] Previous Rx's Medication Instructions Recorded Metoprolol Tartrate [Lopressor] 100 mg PO BID #120 tab 10/19/16 Ipratropium-Albuterol Nebulize 3 ml INHALATION RT-Q6H PRN #120 12/07/16 [Duoneb 0.5 mg-3 mg/3 ml Soln] ampul.neb Allergies Allergy/AdvReac Type Severity Reaction Status Date / Time No Known Allergies Allergy Verified 09/21/17 14:55 Review of Systems ROS Statement: Those systems with pertinent positive or pertinent negative responses have been documented in the HPI. ROS Other: All systems not noted in ROS Statement are negative. Past Medical History Past Medical History: Coronary Artery Disease (CAD), COPD, Diabetes Mellitus, Hyperlipidemia, Hypertension, Myocardial Infarction ([place]), Pneumonia, Sleep Apnea /CPAP/BIPAP Additional Past Medical History / Comment(s): uses CPAP sometimes, postive for fecal blood Last Myocardial Infarction Date:: 2011 History of Any Multi-Drug Resistant Organisms: None Reported Past Surgical History: Cholecystectomy, Heart Catheterization With Stent, Hernia Repair Additional Past Surgical History / Comment(s): UMBILICAL HERNIA REPAIR.VASECTOMY Past Anesthesia/Blood Transfusion Reactions: No Reported Reaction Date of Last Stent Placement:: 2011 Past Psychological History: No Psychological Hx Reported Smoking Status: Never smoker Past Alcohol Use History: None Reported Past Drug Use History: None Reported - Past Family History Father Family Medical History: CVA/TIA, Hypertension, Myocardial Infarction ([place]) Additional Family Medical History / Comment(s): AT AGE 73-[place] Mother Family Medical History: Dementia, Renal Disease Additional Family Medical History / Comment(s): AT AGE 56 COMPLICATIONS FROM DIABETES General Exam Limitations: no limitations General appearance: alert, in no apparent distress Head exam: Present: atraumatic, normocephalic Eye exam: Present: normal appearance, PERRL ENT exam: Present: normal exam Neck exam: Present: normal inspection, full ROM. Absent: tenderness, meningismus Respiratory exam: Present: respiratory distress, wheezes, prolonged expiratory Cardiovascular Exam: Present: regular rate, normal rhythm GI/Abdominal exam: Present: soft. Absent: distended, tenderness Extremities exam: Present: normal inspection, normal capillary refill. Absent: pedal edema Neurological exam: Present: alert, oriented X3, CN II-XII intact. Absent: motor sensory deficit Psychiatric exam: Present: normal affect, normal mood Skin exam: Present: warm, dry, intact. Absent: cyanosis, diaphoretic Course Vital Signs 09/21/17 09/21/17 09/21/17 14:07 14:33 15:09 Temperature 97.4 F L Pulse Rate 80 78 Respiratory 20 20 Rate Blood Pressure 179/84 O2 Sat by Pulse 97 Oximetry 09/21/17 15:43 Temperature Pulse Rate 90 Respiratory Rate Blood Pressure O2 Sat by Pulse Oximetry EKG Findings - EKG Comments: EKG Findings:: EKG shows sinus rhythm with occasional PVC, left axis deviation, ventricular rate 75, AL interval 148, QRS duration 84, QTC 4:15, poor quality EKG, no signs of ST segment elevation Medical Decision Making - Medical Decision Making 72-year-old presenting with cough and dyspnea. On exam patient is diffuse wheezing and decreased air entry. Mild to moderate respiratory distress. Laboratory studies are obtained, white blood cell count 2.5, hemoglobin 13.9, creatinine 1.5 from baseline 1.3. Glucose is elevated at 460, patient did receive intramuscular steroids at his primary care physician's office prior to arrival. BNP is 276. Chest x-ray is negative for focal pneumonia, there is atelectasis at the right costophrenic angle. After albuterol and Atrovent, patient has improved air entry. He is still tachypneic and requiring supplemental oxygen. Patient will be admitted for further treatment of COPD exacerbation. - Lab Data Result diagrams: 09/21/17 14:27 09/21/17 14:27 Lab Results 09/21/17 09/21/17 09/21/17 Range/Units 14:27 14:27 14:27 WBC 10.5 (3.8-10.6) k/uL RBC 4.50 (4.30-5.90) m/uL Hgb 13.9 (13.0-17.5) gm/dL Hct 41.7 (39.0-53.0) % MCV 92.9 (80.0-100.0) fL MCH 30.9 (25.0-35.0) pg MCHC 33.3 (31.0-37.0) g/dL RDW 16.6 H (11.5-15.5) % Plt Count 288 (150-450) k/uL Neutrophils % 74 % Lymphocytes % 17 % Monocytes % 5 % Eosinophils % 1 % Basophils % 0 % Neutrophils # 7.8 H (1.3-7.7) k/uL Lymphocytes # 1.7 (1.0-4.8) k/uL Monocytes # 0.6 (0-1.0) k/uL Eosinophils # 0.1 (0-0.7) k/uL Basophils # 0.0 (0-0.2) k/uL Anisocytosis Slight PT (9.0-12.0) sec INR (<1.2) APTT (22.0-30.0) sec Sodium 136 L (137-145) mmol/L Potassium 4.0 (3.5-5.1) mmol/L Chloride 95 L (98-107) mmol/L Carbon Dioxide 30 (22-30) mmol/L Anion Gap 11 mmol/L BUN 55 H (9-20) mg/dL Creatinine 1.50 H (0.66-1.25) mg/dL Est GFR (MDRD) Af Amer 55 (>60 ml/min/1.73 sqM) Est GFR (MDRD) Non-Af 46 (>60 ml/min/1.73 sqM) Glucose 468 H* (74-99) mg/dL Calcium 9.6 (8.4-10.2) mg/dL Magnesium 2.1 (1.6-2.3) mg/dL Total Bilirubin 1.7 H (0.2-1.3) mg/dL AST 22 (17-59) U/L ALT 55 (21-72) U/L Alkaline Phosphatase 94 (38-126) U/L Total Creatine Kinase 104 (55-170) U/L CK-MB (CK-2) 4.5 H* (0.0-2.4) ng/mL CK-MB (CK-2) Rel Index 4.3 Troponin I 0.020 (0.000-0.034) ng/mL NT-Pro-B Natriuret Pep pg/mL Total Protein 6.6 (6.3-8.2) g/dL Albumin 4.0 (3.5-5.0) g/dL 09/21/17 09/21/17 Range/Units 14:27 14:27 WBC (3.8-10.6) k/uL RBC (4.30-5.90) m/uL Hgb (13.0-17.5) gm/dL Hct (39.0-53.0) % MCV (80.0-100.0) fL MCH (25.0-35.0) pg MCHC (31.0-37.0) g/dL RDW (11.5-15.5) % Plt Count (150-450) k/uL Neutrophils % % Lymphocytes % % Monocytes % % Eosinophils % % Basophils % % Neutrophils # (1.3-7.7) k/uL Lymphocytes # (1.0-4.8) k/uL Monocytes # (0-1.0) k/uL Eosinophils # (0-0.7) k/uL Basophils # (0-0.2) k/uL Anisocytosis PT 10.0 (9.0-12.0) sec INR 1.0 (<1.2) APTT 22.1 (22.0-30.0) sec Sodium (137-145) mmol/L Potassium (3.5-5.1) mmol/L Chloride (98-107) mmol/L Carbon Dioxide (22-30) mmol/L Anion Gap mmol/L BUN (9-20) mg/dL Creatinine (0.66-1.25) mg/dL Est GFR (MDRD) Af Amer (>60 ml/min/1.73 sqM) Est GFR (MDRD) Non-Af (>60 ml/min/1.73 sqM) Glucose (74-99) mg/dL Calcium (8.4-10.2) mg/dL Magnesium (1.6-2.3) mg/dL Total Bilirubin (0.2-1.3) mg/dL AST (17-59) U/L ALT (21-72) U/L Alkaline Phosphatase (38-126) U/L Total Creatine Kinase (55-170) U/L CK-MB (CK-2) (0.0-2.4) ng/mL CK-MB (CK-2) Rel Index Troponin I (0.000-0.034) ng/mL NT-Pro-B Natriuret Pep 276 pg/mL Total Protein (6.3-8.2) g/dL Albumin (3.5-5.0) g/dL Disposition Clinical Impression: Acute exacerbation of chronic obstructive airways disease Disposition: ADMITTED IP TO THIS HOSP Condition: Stable Referrals: Tomasz Isbell DO [Primary Care Provider] - 1-2 days Decision to Admit Reason: Admit from EC Decision Date: 09/21/17 Decision Time: 15:55
[2017-09-21 15:11] LABS: Anisocytosis Slight; Basophils % (A) 0 %; Eosinophils # (A) 0.1 k/uL (0-0.7); Eosinophils % (A) 1 %; HCT 41.7 % (39.0-53.0); HGB 13.9 gm/dL (13.0-17.5); Lymphocytes # (A) 1.7 k/uL (1.0-4.8); Lymphocytes % (A) 17 %; MCH 30.9 pg (25.0-35.0); MCHC 33.3 g/dL (31.0-37.0); MCV 92.9 fL (80.0-100.0); Mean Platelet Volume 6.9; Monocytes # (A) 0.6 k/uL (0-1.0); Monocytes % (A) 5 %; Neutrophils # (A) 7.8 k/uL (1.3-7.7); Neutrophils % (A) 74 %; Platelet Count 288 k/uL (150-450); RDW 16.6 % (11.5-15.5); WBC 10.5 k/uL (3.8-10.6)
[2017-09-21 15:21] LABS: Partial Thromboplastin Time 22.1 sec (22.0-30.0)
[2017-09-21 15:22] LABS: Calcium 9.6 mg/dL (8.4-10.2); Magnesium 2.1 mg/dL (1.6-2.3); Total Bilirubin 1.7 mg/dL (0.2-1.3); Total Protein 6.6 g/dL (6.3-8.2)
--- NOTE | 2017-09-21 15:42 | XR ---
EXAMINATION TYPE: XR chest 2V DATE OF EXAM: 09/21/2017 COMPARISON: 04/30/2017 INDICATION: Difficulty breathing short of breath history of COPD TECHNIQUE: Frontal and lateral views of the chest are obtained. FINDINGS: The heart size is normal. The pulmonary vasculature is normal. Minimal plate atelectasis is above the right costophrenic angle. Lungs are otherwise clear. IMPRESSION: 1. Minimal plate atelectasis right costophrenic angle.
[2017-09-21 15:43] LABS: Troponin I 0.02 ng/mL (0.000-0.034)
[2017-09-21 15:44] LABS: Creatine Kinase MB 4.5 ng/mL (0.0-2.4)
[2017-09-21] MEDS ORDERED: INSULIN REGULAR 100 UNIT/ML VIAL IV ONE (15:46)
[2017-09-21] MEDS: SODIUM CHLORIDE 0.9% 1,000 ML IV SCH ×2 (16:03→19:55)
[2017-09-21] MEDS ORDERED: IPRATROPIUM-ALBUTEROL 3 ML NEB INHALATION PRN (16:04)
[2017-09-21 19:41] LABS: Glucose,Whole Blood 421 mg/dL (75-99)
[2017-09-21] MEDS ORDERED: INSULIN ASPART 100 UNIT/ML 1 ML 10 ML VIAL SQ ONE (20:08)
[2017-09-21] MEDS: IPRATROPIUM-ALBUTEROL 3 ML NEB INHALATION SCH (20:32)
[2017-09-21] MEDS: INSULIN ASPART 100 UNIT/ML 1 ML 10 ML VIAL SQ SCH (21:50)
[2017-09-21] MEDS: ATORVASTATIN 80 MG TAB PO SCH (21:50)
[2017-09-21] MEDS: INSULIN DETEMIR 100 UNIT/ML 10 ML VIAL SQ SCH (21:51)
[2017-09-21] MEDS: METOPROLOL TARTRATE 50 MG TAB PO SCH (21:51)
[2017-09-22 04:51] LABS: Glucose,Whole Blood 119 mg/dL (75-99)
[2017-09-22 06:41] LABS: ALT 47 U/L (21-72); AST 20 U/L (17-59); Albumin 3.6 g/dL (3.5-5.0); Alkaline Phosphatase 71 U/L (38-126); Anion Gap 8 mmol/L; Anisocytosis Slight; Basophils % (A) 0 %; Blood Urea Nitrogen 43 mg/dL (9-20); Calcium 9.6 mg/dL (8.4-10.2); Carbon Dioxide 31 mmol/L (22-30); Chloride 99 mmol/L (98-107); Eosinophils # (A) 0.1 k/uL (0-0.7); Eosinophils % (A) 1 %; Glucose 104 mg/dL (74-99); HCT 40.3 % (39.0-53.0); HGB 13.2 gm/dL (13.0-17.5); Lymphocytes # (A) 1.4 k/uL (1.0-4.8); Lymphocytes % (A) 12 %; MCH 30.3 pg (25.0-35.0); MCHC 32.7 g/dL (31.0-37.0); MCV 92.9 fL (80.0-100.0); Monocytes # (A) 0.5 k/uL (0-1.0); Monocytes % (A) 4 %; Neutrophils # (A) 9.9 k/uL (1.3-7.7); Neutrophils % (A) 82 %; Platelet Count 307 k/uL (150-450); Potassium 3.4 mmol/L (3.5-5.1); RBC 4.34 m/uL (4.30-5.90); RDW 16.7 % (11.5-15.5); Sodium 138 mmol/L (137-145); Total Bilirubin 1.7 mg/dL (0.2-1.3); WBC 12.1 k/uL (3.8-10.6)
[2017-09-22] MEDS: IPRATROPIUM-ALBUTEROL 3 ML NEB INHALATION SCH ×4 (07:15→19:09)
[2017-09-22 07:20] LABS: Glucose,Whole Blood 118 mg/dL (75-99)
[2017-09-22] MEDS: INSULIN ASPART 100 UNIT/ML 1 ML 10 ML VIAL SQ SCH ×7 (07:29→21:28)
[2017-09-22] MEDS: predniSONE 20 MG TAB PO SCH (08:04)
[2017-09-22] MEDS: LOSARTAN 50 MG TAB PO SCH (08:05)
[2017-09-22] MEDS: ASPIRIN 81 MG PO SCH (08:05)
[2017-09-22] MEDS: amLODIPine 10 MG TAB PO SCH (08:05)
[2017-09-22] MEDS: METOPROLOL TARTRATE 50 MG TAB PO SCH ×2 (08:05→21:27)
[2017-09-22 11:37] LABS: Glucose,Whole Blood 190 mg/dL (75-99)
--- NOTE | 2017-09-22 13:50 | P.HPIM ---
History of Present Illness H&P Date: 09/22/17 This is a 72-year-old morbidly obese male patient of Dr. Isbell with past medical history of morbid obesity, COPD, obstructive sleep apnea with CPAP that he uses intermittently, chronic diastolic heart failure, history of CAD and hyperglycemia. Patient states that he has had increased difficulty breathing with some sinus drainage that is green, wheezing and came into [facility] emergency center for evaluation. Patient was diagnosed with acute exacerbation of COPD and admitted to the [facility] floor and started on nebulizer treatments, Solu-Medrol followed by prednisone and pulmonary consult requested. Chest x-ray showed minimal plate atelectasis at right costophrenic angle. Patient also complains of his abdomen being larger, nausea without vomiting, increased gas for about one week or so. He also states he had a bowel movement yesterday. He denies having any diarrhea. Review of Systems All systems: negative Constitutional: Reports chills, Reports fatigue, Reports fever Eyes: denies blurred vision, denies pain Ears, nose, mouth and throat: Reports nasal discharge, Denies headache, Denies sore throat Cardiovascular: Reports decreased exercise tolerance, Reports dyspnea on exertion, Reports shortness of breath, Denies chest pain, Denies edema, Denies leg edema, Denies lightheadedness, Denies syncope Respiratory: Reports congestion, Reports cough, Reports cough with sputum, Reports dyspnea, Denies excessive sputum, Denies hemoptysis, Denies home oxygen Gastrointestinal: Denies abdominal pain, Denies diarrhea, Denies nausea, Denies vomiting Genitourinary: Denies dysuria Musculoskeletal: Denies myalgias Integumentary: Denies pruritus, Denies rash Neurological: Denies numbness, Denies weakness Psychiatric: Denies anxiety, Denies depression Endocrine: Denies fatigue, Denies weight change Past Medical History Past Medical History: Coronary Artery Disease (CAD), COPD, Diabetes Mellitus, Hyperlipidemia, Hypertension, Myocardial Infarction ([place]), Pneumonia, Sleep Apnea /CPAP/BIPAP Additional Past Medical History / Comment(s): uses CPAP sometimes, diverticulosis(per colonoscopy), skin ca on scalp(removed) Last Myocardial Infarction Date:: 2011 History of Any Multi-Drug Resistant Organisms: None Reported Past Surgical History: Cholecystectomy, Heart Catheterization With Stent, Hernia Repair Additional Past Surgical History / Comment(s): UMBILICAL HERNIA REPAIR.VASECTOMY , colonoscopy, skin ca on scalp removed. Past Anesthesia/Blood Transfusion Reactions: No Reported Reaction Date of Last Stent Placement:: 2011 Smoking Status: Never smoker Additional Past Alcohol Use History / Comment(s): Patient is a lifelong nonsmoker. He worked [employer]. - Past Family History Father Family Medical History: CVA/TIA, Hypertension, Myocardial Infarction ([place]) Additional Family Medical History / Comment(s): AT AGE 73-[place] Mother Family Medical History: Dementia, Renal Disease Additional Family Medical History / Comment(s): AT AGE 56 COMPLICATIONS FROM DIABETES Medications and Allergies Home Medications Medication Instructions Recorded Confirmed Type Aspirin EC [Ecotrin Low Dose] 81 mg PO DAILY 10/13/16 09/21/17 History Metoprolol Tartrate [Lopressor] 100 mg PO BID #120 tab 10/19/16 09/21/17 Rx Furosemide [Lasix] 40 mg PO BID 12/07/16 09/21/17 History Insulin Lispro [humaLOG Kwikpen] See Protocol SQ ACHS 12/07/16 09/21/17 History Ipratropium-Albuterol Nebulize 3 ml INHALATION RT-Q6H PRN #120 12/07/16 Rx [Duoneb 0.5 mg-3 mg/3 ml Soln] ampul.neb Losartan [Cozaar] 50 mg PO DAILY 12/07/16 09/21/17 History amLODIPine [Norvasc] 10 mg PO DAILY 12/07/16 09/21/17 History Budesonide-Formot 160-4.5 Mcg 2 puff INHALATION RT-BID PRN 05/23/17 09/21/17 History [Symbicort 160-4.5 Mcg Inhaler] Atorvastatin [Lipitor] 80 mg PO HS 09/21/17 09/21/17 History Insulin Glargine,Hum.rec.anlog 23 unit SQ 09/21/17 09/21/17 History [Lantus Solostar] Allergies Allergy/AdvReac Type Severity Reaction Status Date / Time No Known Allergies Allergy Verified 09/21/17 14:55 Physical Exam Vitals: Vital Signs Temp Pulse Pulse Resp BP BP Pulse Ox 09/22/17 07:29 88 09/22/17 07:17 88 09/22/17 07:00 98.6 F 79 18 148/56 100 09/21/17 20:42 92 09/21/17 20:32 89 09/21/17 19:19 98.2 F 50 L 20 147/80 98 09/21/17 18:25 97.9 F 88 24 117/78 95 09/21/17 16:07 88 18 153/88 96 09/21/17 15:43 90 09/21/17 15:11 74 16 129/72 98 09/21/17 15:09 78 09/21/17 14:33 20 09/21/17 14:07 97.4 F L 80 20 179/84 97 Intake and Output 09/21/17 09/22/17 09/22/17 22:59 06:59 14:59 Intake Total 800 Balance 800 Intake: Intake, IV Titration 400 Amount Sodium Chloride 0.9% 1, 400 000 ml @ 50 mls/hr IV . Q20H [facility] Rx#:[id number] Oral 400 Other: Voiding Method Toilet # Voids 2 General appearance: no average body habitus, cooperative, no disheveled, mild distress, morbidly obese, no no acute distress, no severe distress, no thin - EENT Eyes: no abnormal pupil, no anicteric sclerae, no disc margins sharp, no edentulous, no EOMI, no PERRLA, no fundus normal, no photophobia, no dentition normal, no poor dentition, no ptosis, no scleral icterus, normal appearance ENT: hard of hearing, no hearing grossly normal, no NA/AT, normal oropharynx, no other, pharyngeal erythema, no thrush, no tonsillar exudates, no tonsillar swelling Ears: bilateral: normal - Neck Neck: no lymphadenopathy, normal ROM, no other, no rigidity, no stridor, no thyromegaly Carotids: bilateral: upstroke normal Thyroid: bilateral: normal size - Respiratory Respiratory: bilateral: diminished, dullness, rales, rhonchi, wheezing, prolonged expiration, prolonged inspiration - Cardiovascular Rhythm: regular Heart sounds: normal: S1, S2 Abnormal Heart Sounds: systolic murmur, S3 Gallop - Gastrointestinal General gastrointestinal: no absent bowel sounds, no decreased bowel sounds, distended, hepatomegaly, no hyperactive bowel sounds, normal bowel sounds, no organomegaly, no rigid, scaphoid, soft, no splenomegaly, no tenderness, no umbilical hernia, no ventral hernia - Integumentary Integumentary: no calor, no cellulitis, cyanotic, no decreased turgor, no flushed, no jaundiced, normal, no normal turgor, pale, rash, no ulcer - Neurologic Neurologic: CNII-XII intact - Musculoskeletal Musculoskeletal: gait normal, generalized weakness, strength equal bilaterally, right sided weakness - Psychiatric Psychiatric: A&O x's 3, appropriate affect Results CBC & Chem 7: 09/22/17 05:35 09/22/17 05:35 Labs: Abnormal Lab Results - Last 24 Hours (Table) 09/21/17 09/21/17 09/21/17 Range/Units 14:27 14:27 14:27 WBC (3.8-10.6) k/uL RDW 16.6 H (11.5-15.5) % Neutrophils # 7.8 H (1.3-7.7) k/uL Sodium 136 L (137-145) mmol/L Potassium (3.5-5.1) mmol/L Chloride 95 L (98-107) mmol/L Carbon Dioxide (22-30) mmol/L BUN 55 H (9-20) mg/dL Creatinine 1.50 H (0.66-1.25) mg/dL Glucose 468 H* (74-99) mg/dL POC Glucose (mg/dL) (75-99) mg/dL Total Bilirubin 1.7 H (0.2-1.3) mg/dL CK-MB (CK-2) 4.5 H* (0.0-2.4) ng/mL Total Protein (6.3-8.2) g/dL 09/21/17 09/22/17 09/22/17 Range/Units 19:39 04:49 05:35 WBC 12.1 H (3.8-10.6) k/uL RDW 16.7 H (11.5-15.5) % Neutrophils # 9.9 H (1.3-7.7) k/uL Sodium (137-145) mmol/L Potassium (3.5-5.1) mmol/L Chloride (98-107) mmol/L Carbon Dioxide (22-30) mmol/L BUN (9-20) mg/dL Creatinine (0.66-1.25) mg/dL Glucose (74-99) mg/dL POC Glucose (mg/dL) 421 H 119 H (75-99) mg/dL Total Bilirubin (0.2-1.3) mg/dL CK-MB (CK-2) (0.0-2.4) ng/mL Total Protein (6.3-8.2) g/dL 09/22/17 09/22/17 Range/Units 05:35 07:19 WBC (3.8-10.6) k/uL RDW (11.5-15.5) % Neutrophils # (1.3-7.7) k/uL Sodium (137-145) mmol/L Potassium 3.4 L (3.5-5.1) mmol/L Chloride (98-107) mmol/L Carbon Dioxide 31 H (22-30) mmol/L BUN 43 H (9-20) mg/dL Creatinine 1.35 H (0.66-1.25) mg/dL Glucose 104 H (74-99) mg/dL POC Glucose (mg/dL) 118 H (75-99) mg/dL Total Bilirubin 1.7 H (0.2-1.3) mg/dL CK-MB (CK-2) (0.0-2.4) ng/mL Total Protein 6.0 L (6.3-8.2) g/dL Thrombosis Risk Factor Assmnt - DVT/VTE Prophylaxis DVT/VTE Prophylaxis: Pharmacologic Prophylaxis ordered - Choose All That Apply Any of the Below Risk Factors Present?: Yes Each Factor Represents 1 point: Abnormal pulmonary function (COPD), Obesity ( BMI >25) Other Risk Factors: Yes Each Risk Factor Represents 2 Points: Age 61-74 years, Malignancy Other congenital or acquired thrombophilia - If yes, enter type in comment: No Thrombosis Risk Factor Assessment Total Risk Factor Score: 6 Thrombosis Risk Factor Assessment Level: High Risk Assessment and Plan Plan: 1. Acute respiratory distress due to COPD exacerbation: continue DuoNeb treatments, Pulmicort twice daily, oral prednisone. 2. Hypertension: Patient has been on amlodipine, losartan along with metoprolol , continue medication. 3. Hyperlipidemia: Continue on statin. 4. Atherosclerotic heart disease, stable. Continue aspirin, Lipitor, metoprolol. 5. Obstructive sleep apnea: Patient has been on CPAP regular basis. Patient have family bring in CPAP. 6. Diabetes mellitus type 2 uncontroled due to steroids. Continue insulin: Levemir, scheduled Novolog and scale. 7. Abdominal distention with possible ascites. Abdominal ultrasound ordered. 8. AV node reentry tachycardia. Metoprolol 100 mg twice daily. 9. GI prophylaxis: Patient will be on Pepcid 20 mg daily. 10. DVT prophylaxis: Patient will be on heparin 5000 units subcutaneous twice a day. 11. Skin cancer with previous removal on his scalp. Patient advised to follow up with mortgage coordinator as there are other lesions need to be addressed. 12. Chronic kidney disease stage III CODE STATUS: Full code. Patient will be admitted to the hospital for a minimum of 2 night today. Discharge plan: Most likely return home with homecare Impression and plan of care have been directed as dictated by the signing physician. Lay Elizabeth nurse practitioner acting as scribe for signing physician.
--- NOTE | 2017-09-22 15:25 | P.CNPUL ---
History of Present Illness Consult date: 09/22/17 Reason for consult: COPD History of present illness: 71-year-old morbidly obese male of Dr. Beatty patient with past medical history of morbid obesity, COPD, obstructive sleep apnea maintained on BiPAP therapy at a pressure of 20/15 cm of water on outpatient basis in addition to history of diastolic congestive heart failure, history of CAD, hypertension, hyperlipidemia and obesity. The patient also has a component of chronic renal failure. The patient came into the hospital because of worsening shortness of breath. The patient increased cough congestion chest that is so wheezing. The exact trigger is not clear. The patient is a nonsmoker. No chest pain. No angina. No swelling lower extremities. No orthopnea. His chest x-ray shows minimal platelike atelectatic changes in the right costophrenic angle. Otherwise there is no evidence of any airspace disease or pneumonias. The white cell count is not elevated. Renal function is imperative stable with a creatinine of 1.3. Influenza screen was negative. The patient was started on accommodation bronchodilators and systemic steroids. Clinically is feeling better compared to yesterday. No new complaints otherwise for now. Shortness of breath apparently is improving. He has been maintained on Symbicort on outpatient basis regarding his COPD and he has DuoNeb nebulized treatments around the clock. Review of Systems Constitutional: Reports fatigue, Reports lethargy, Reports malaise, Reports weakness, Reports weight gain Eyes: bilateral as per HPI Ears: bilateral: decreased hearing Ears, nose, mouth and throat: Denies bleeding gums, Denies dental pain, Denies dysphagia, Denies epistaxis, Denies headache, Denies hoarseness, Denies mouth pain, Denies neck fullness/pressure, Denies neck lump, Denies nose pain, Denies odynophagia, Denies post-nasal drip, Denies swelling in mouth, Denies swelling in throat, Denies sore throat, Denies vertigo, Denies voice changes Cardiovascular: Denies claudication, Denies decreased exercise tolerance, Denies dyspnea on exertion, Denies edema, Denies high blood pressure, Denies irregular heart beat, Denies leg edema, Denies lightheadedness, Denies paroxysmal nocturnal dyspnea, Denies phlebitis, Denies rapid heart beat, Denies shortness of breath, Denies syncope Respiratory: Reports congestion, Reports cough with sputum, Reports dyspnea, Reports sleep apnea, Reports wheezing, Denies as per HPI, Denies cough, Denies excessive sputum, Denies hemoptysis, Denies home oxygen, Denies pain, Denies snoring Gastrointestinal: Denies belching, Denies BRBPR, Denies coffee ground emesis, Denies constipation, Denies diarrhea, Denies excessive gas, Denies heartburn, Denies hematemesis, Denies hematochezia, Denies jaundice, Denies melena, Denies nausea, Denies vomiting Genitourinary: Denies difficulties fathering child, Denies discharge, Denies dysuria, Denies erectile dysfunction, Denies flank pain, Denies genital pain, Denies genital sores, Denies hematuria, Denies impotence, Denies incontinence, Denies kidney stones, Denies polyuria, Denies testicular lump, Denies testicular pain, Denies urinary retention Musculoskeletal: Denies atrophy, Denies fractures, Denies frequent falls, Denies gait dysfunction, Denies hot joints, Denies loss of height, Denies low back pain, Denies morning stiffness, Denies muscle cramps, Denies muscle weakness, Denies prior amputations, Denies redness of joints, Denies shooting arm pain, Denies shooting leg pain Integumentary: Denies acne, Denies boils, Denies brittle nails, Denies change in hair/nails, Denies color changes, Denies darkening of skin, Denies depigmentation, Denies dryness, Denies foot/leg ulcers, Denies growths, Denies hirsutism, Denies lesions, Denies onychomycosis, Denies pruritus, Denies striae , Denies unusual bruising, Denies wounds Neurological: Denies as per HPI, Denies aphasia, Denies ataxia, Denies burning pain, Denies change in mentation, Denies change in smell/taste, Denies change in speech, Denies confusion, Denies convulsions, Denies double vision, Denies gait dysfunction, Denies head injury, Denies headaches, Denies hearing difficulties, Denies lack of coordination, Denies loss of vision, Denies memory loss, Denies migraines, Denies motor disturbance, Denies paralysis, Denies seizures, Denies sensory deficit, Denies spasticity, Denies transient paralysis , Denies tremors, Denies vertigo, Denies weakness, Denies visual changes Psychiatric: Denies as per HPI, Denies anxiety attacks, Denies change in appetite, Denies change in libido, Denies change in sleep habits, Denies confusion, Denies difficulty concentrating, Denies disorientation, Denies hallucinations, Denies hopelessness, Denies hypersomnia, Denies insomnia, Denies irritability, Denies memory loss, Denies mood swings, Denies paranoia, Denies sadness/tearfulness, Denies sleep disturbances, Denies suicidal ideation Endocrine:ze, Denies low blood sugars, Denies recent glucocorticoid use, Denies thyroid mass, Denies weight change Hematologic/Lymphatic:Denies easy bleeding, Denies lymphadenopathy, Denies lymphedema, Denies thrombophilia Allergic/Immunologic Denies anaphylaxis, Denies angioedema, Denies gluten intolerance, Denies persistent infections, Denies seasonal allergies, Denies urticaria, Denies wheezing Past Medical History Past Medical History: Coronary Artery Disease (CAD), COPD, Diabetes Mellitus, Hyperlipidemia, Hypertension, Myocardial Infarction ([place]), Pneumonia, Sleep Apnea /CPAP/BIPAP Additional Past Medical History / Comment(s): Obesity, COPD, coronary artery disease, diabetes mellitus, hypertension, hyperlipidemia, previous myocardial infarction, previous hospitalization for COPD exacerbation, skin cancer from his scalp that has been removed, diverticulosis Last Myocardial Infarction Date:: 2011 History of Any Multi-Drug Resistant Organisms: None Reported Past Surgical History: Cholecystectomy, Heart Catheterization With Stent, Hernia Repair Additional Past Surgical History / Comment(s): UMBILICAL HERNIA REPAIR.VASECTOMY , colonoscopy, skin ca on scalp removed. Past Anesthesia/Blood Transfusion Reactions: No Reported Reaction Date of Last Stent Placement:: 2011 Smoking Status: Never smoker Additional Past Alcohol Use History / Comment(s): Patient is a lifelong nonsmoker. He worked [employer]. - Past Family History Father Family Medical History: CVA/TIA, Hypertension, Myocardial Infarction ([place]) Additional Family Medical History / Comment(s): AT AGE 73-[place] Mother Family Medical History: Dementia, Renal Disease Additional Family Medical History / Comment(s): AT AGE 56 COMPLICATIONS FROM DIABETES Medications and Allergies Home Medications Medication Instructions Recorded Confirmed Type Aspirin EC [Ecotrin Low Dose] 81 mg PO DAILY 10/13/16 09/21/17 History Metoprolol Tartrate [Lopressor] 100 mg PO BID #120 tab 10/19/16 09/21/17 Rx Furosemide [Lasix] 40 mg PO BID 12/07/16 09/21/17 History Insulin Lispro [humaLOG Kwikpen] See Protocol SQ ACHS 12/07/16 09/21/17 History Ipratropium-Albuterol Nebulize 3 ml INHALATION RT-Q6H PRN #120 12/07/16 Rx [Duoneb 0.5 mg-3 mg/3 ml Soln] ampul.neb Losartan [Cozaar] 50 mg PO DAILY 12/07/16 09/21/17 History amLODIPine [Norvasc] 10 mg PO DAILY 12/07/16 09/21/17 History Budesonide-Formot 160-4.5 Mcg 2 puff INHALATION RT-BID PRN 05/23/17 09/21/17 History [Symbicort 160-4.5 Mcg Inhaler] Atorvastatin [Lipitor] 80 mg PO HS 09/21/17 09/21/17 History Insulin Glargine,Hum.rec.anlog 23 unit SQ HS 09/21/17 09/21/17 History [Lantus Solostar] Allergies Allergy/AdvReac Type Severity Reaction Status Date / Time No Known Allergies Allergy Verified 09/21/17 14:55 Physical Exam Vitals: Vital Signs Temp Pulse Pulse Resp BP BP Pulse Ox 09/22/17 15:02 84 09/22/17 14:56 88 09/22/17 11:36 84 09/22/17 11:24 80 09/22/17 07:29 88 09/22/17 07:17 88 09/22/17 07:00 98.6 F 79 18 148/56 100 09/21/17 20:42 92 09/21/17 20:32 89 09/21/17 19:19 98.2 F 50 L 20 147/80 98 09/21/17 18:25 97.9 F 88 24 117/78 95 09/21/17 16:07 88 18 153/88 96 09/21/17 15:43 90 Intake and Output 09/22/17 09/22/17 09/22/17 06:59 14:59 22:59 Intake Total 800 Balance 800 Intake: Intake, IV Titration 400 Amount Sodium Chloride 0.9% 1, 400 000 ml @ 50 mls/hr IV . Q20H [facility] Rx#:[id number] Oral 400 Other: Voiding Method Toilet Toilet # Voids 2 General appearance: no average body habitus, cooperative, no disheveled, mild distress, morbidly obese, no no acute distress, no obese, no severe distress, no thin - EENT Eyes: no abnormal pupil, no anicteric sclerae, no disc margins sharp, no edentulous, no EOMI, no PERRLA, no fundus normal, no photophobia, no dentition normal, no poor dentition, no ptosis, no scleral icterus, normal appearance, and the patient has significant crowding of the posterior oropharynx with a Mallampati class IV. ENT: hard of hearing, no hearing grossly normal, no NA/AT, normal oropharynx, no other, pharyngeal erythema, no thrush, no tonsillar exudates, no tonsillar swelling Ears: bilateral: normal - Neck Neck: no lymphadenopathy, normal ROM, no other, no rigidity, no stridor, no thyromegaly Carotids: bilateral: upstroke normal Thyroid: bilateral: normal size - Respiratory Respiratory: bilateral: diminished, dullness, rales, rhonchi, wheezing, prolonged expiration, prolonged inspiration - Cardiovascular Rhythm: irregularly irregular Heart sounds: normal: S1, S2 Abnormal Heart Sounds: systolic murmur, S3 Gallop - Gastrointestinal General gastrointestinal: no absent bowel sounds, no decreased bowel sounds, distended, hepatomegaly, no hyperactive bowel sounds, normal bowel sounds, no organomegaly, no rigid, scaphoid, soft, no splenomegaly, no tenderness, no umbilical hernia, no ventral hernia - Integumentary Integumentary: no calor, no cellulitis, cyanotic, no decreased turgor, no flushed, no jaundiced, normal, no normal turgor, pale, rash, no ulcer - Neurologic Neurologic: CNII-XII intact - Musculoskeletal Musculoskeletal: gait normal, generalized weakness, strength equal bilaterally, right sided weakness - Psychiatric Psychiatric: A&O x's 3, appropriate affect Results - Laboratory Findings CBC and BMP: 09/22/17 05:35 09/22/17 05:35 PT/INR, D-dimer PT 10.0 sec (9.0-12.0) 09/21/17 14:27 INR 1.0 (<1.2) 09/21/17 14:27 Abnormal lab findings: Abnormal Labs 09/21/17 09/21/17 09/21/17 14:27 14:27 14:27 WBC RDW 16.6 H Neutrophils # 7.8 H Sodium 136 L Potassium Chloride 95 L Carbon Dioxide BUN 55 H Creatinine 1.50 H Glucose 468 H* POC Glucose (mg/dL) Total Bilirubin 1.7 H CK-MB (CK-2) 4.5 H* Total Protein 09/21/17 09/22/17 09/22/17 19:39 04:49 05:35 WBC 12.1 H RDW 16.7 H Neutrophils # 9.9 H Sodium Potassium Chloride Carbon Dioxide BUN Creatinine Glucose POC Glucose (mg/dL) 421 H 119 H Total Bilirubin CK-MB (CK-2) Total Protein 09/22/17 09/22/17 09/22/17 05:35 07:19 11:36 WBC RDW Neutrophils # Sodium Potassium 3.4 L Chloride Carbon Dioxide 31 H BUN 43 H Creatinine 1.35 H Glucose 104 H POC Glucose (mg/dL) 118 H 190 H Total Bilirubin 1.7 H CK-MB (CK-2) Total Protein 6.0 L - Diagnostic Findings Chest x-ray: image reviewed Assessment and Plan Plan: 1 acute respiratory distress due to COPD exacerbation and the chest x-ray done showed no acute abnormalities. 2 COPD exacerbation 3 obstructive sleep apnea maintained on BiPAP at a pressure of 20/15 4 hypertension: 5 hyperlipidemia: 6 atherosclerotic heart disease, currently free of any angina. 7 obesity 8. Diabetes mellitus with a component of steroid-induced hyperglycemia 9 Chronic renal failure Plan Continue DuoNeb neb treatments around the clock. Continue the systemic steroids. The patient was taken off the IV Solu Medrol and started on a prednisone burst taper. Monitor blood sugars. Mitral antibiotics for now. Chest x-ray is free of any acute pulmonary infiltration. Clinically improving. Encourage use of BiPAP on outpatient basis. Weight loss. Anticipate further recovered over the next 24-48 hours. We'll continue to follow.
--- NOTE | 2017-09-22 16:33 | US ---
EXAMINATION TYPE: US abdomen complete DATE OF EXAM: 09/22/2017 COMPARISON: CT chest October 14, 2016 CLINICAL HISTORY: abd fluid, distention. EXAM MEASUREMENTS: Liver Length: 15.2 cm Gallbladder Wall: Surgically absent cm CBD: 0.3 cm Spleen: 11.9 cm Right Kidney: 9.8 x 5.4 x 5.2 cm Left Kidney: 11.4 x 4.1 x 4.9 cm Patient of large body habitus with very large abdomen and extensive overlying bowel gas. Pancreas: Obscured by bowel gas Liver: Increased attenuation, decreased visualization of vessels suggestive of fatty infiltrate, lef t lobe obscured by bowel gas, limited views of right lobe due to body habitus and overlying bowel gas Gallbladder: Surgically absent Evidence for sonographic Borges's sign: no CBD: wnl Spleen: limited visualization Right Kidney: No hydronephrosis or masses seen Left Kidney: No hydronephrosis or masses seen Upper IVC: not visualized Abd Aorta: small portion of proximal visualized at wnl, mostly obscured by overlying bowel gas The visualized liver is heterogeneously hyperechoic. There is no suspicious hepatic ductal dilatation . Evaluation for focal masses suboptimal due to the heterogeneity. The intrahepatic portion of the IV C and visualized proximal abdominal aorta are within normal limits. Gallbladder is surgically absent. Common bile duct is unremarkable. The pancreas is obscured by overlying bowel gas. The spleen is unremarkable. Kidneys are symmetric and free of hydronephrosis. Some cortical thinning is present. N o renal lesions are seen on images saved. IMPRESSION: Suboptimal study. No significant ascites is seen on images saved.
[2017-09-22 17:33] LABS: Glucose,Whole Blood 275 mg/dL (75-99)
[2017-09-22 17:40] LABS: Hemoglobin A1C 12.1 % (4.0-6.0)
[2017-09-22] MEDS: HEPARIN SODIUM,PORCINE 5,000 UNIT/ML 1 ML VIAL SQ SCH (17:43)
[2017-09-22] MEDS: BUDESONIDE 0.5 MG/2 ML NEBU INHALATION SCH (19:09)
[2017-09-22 20:21] LABS: Glucose,Whole Blood 442 mg/dL (75-99)
[2017-09-22] MEDS ORDERED: INSULIN ASPART 100 UNIT/ML 1 ML 10 ML VIAL SQ ONE (21:12)
[2017-09-22] MEDS: INSULIN DETEMIR 100 UNIT/ML 10 ML VIAL SQ SCH (21:27)
[2017-09-22] MEDS: ATORVASTATIN 80 MG TAB PO SCH (21:27)
[2017-09-23] MEDS: HEPARIN SODIUM,PORCINE 5,000 UNIT/ML 1 ML VIAL SQ SCH ×2 (00:16→10:33)
[2017-09-23 07:04] LABS: Glucose,Whole Blood 126 mg/dL (75-99)
[2017-09-23 07:14] LABS: Anisocytosis Slight; Basophils % (A) 0 %; Eosinophils % (A) 0 %; HCT 37.7 % (39.0-53.0); HGB 12.7 gm/dL (13.0-17.5); Lymphocytes # (A) 1.7 k/uL (1.0-4.8); Lymphocytes % (A) 15 %; MCH 30.4 pg (25.0-35.0); MCHC 33.6 g/dL (31.0-37.0); MCV 90.2 fL (80.0-100.0); Mean Platelet Volume 7.3; Monocytes # (A) 0.6 k/uL (0-1.0); Monocytes % (A) 5 %; Neutrophils # (A) 9.1 k/uL (1.3-7.7); Neutrophils % (A) 78 %; Platelet Count 285 k/uL (150-450); RBC 4.18 m/uL (4.30-5.90); RDW 16.2 % (11.5-15.5); WBC 11.8 k/uL (3.8-10.6)
[2017-09-23] MEDS: BUDESONIDE 0.5 MG/2 ML NEBU INHALATION SCH (07:25)
[2017-09-23] MEDS: IPRATROPIUM-ALBUTEROL 3 ML NEB INHALATION SCH ×2 (07:25→11:13)
[2017-09-23 07:29] VITALS: RESP 18
[2017-09-23 07:42] LABS: ALT 47 U/L (21-72); AST 22 U/L (17-59); Albumin 3.6 g/dL (3.5-5.0); Alkaline Phosphatase 65 U/L (38-126); Anion Gap 10 mmol/L; Blood Urea Nitrogen 41 mg/dL (9-20); Calcium 9.4 mg/dL (8.4-10.2); Carbon Dioxide 30 mmol/L (22-30); Chloride 98 mmol/L (98-107); Glucose 87 mg/dL (74-99); Potassium 3.5 mmol/L (3.5-5.1); Sodium 138 mmol/L (137-145); Total Bilirubin 2.1 mg/dL (0.2-1.3); Total Protein 6.1 g/dL (6.3-8.2)
[2017-09-23] MEDS: INSULIN ASPART 100 UNIT/ML 1 ML 10 ML VIAL SQ SCH ×4 (07:47→12:10)
[2017-09-23 08:54] VITALS: BP 134/75; TEMP 97.9
[2017-09-23] MEDS ORDERED: FAMOTIDINE 20 MG TAB PO SCH (09:00)
[2017-09-23] MEDS: METOPROLOL TARTRATE 50 MG TAB PO SCH (10:33)
[2017-09-23] MEDS: predniSONE 20 MG TAB PO SCH (10:33)
[2017-09-23] MEDS: SODIUM CHLORIDE 0.9% 1,000 ML IV SCH (10:33)
[2017-09-23] MEDS: ASPIRIN 81 MG PO SCH (10:33)
[2017-09-23] MEDS: amLODIPine 10 MG TAB PO SCH (10:33)
[2017-09-23] MEDS: LOSARTAN 50 MG TAB PO SCH (10:33)
--- NOTE | 2017-09-23 11:22 | P.DS ---
Providers Date of admission: 09/21/17 16:06 Attending physician: Rosa Jay MD Consults: 09/21/17 16:04 Consult Physician Routine Consulting Provider: Megan Rodriguez Consult Reason/Comments: COPD exacerbation Do you want consulting provider notified?: Yes Primary care physician: Tomasz [facility] Course: this is 72 years old male who presented to the hospital with worsening shortness breath patient was started on COPD exacerbation pathway improved and was up ambulating in the [place] on his own denying any shortness of breath patient oxygen continue to be above 90% at all the time on room air and felt stable from the medical standpoint patient was seen by pulmonary who recommended close follow-up outpatient patient felt stable from the medical standpoint and was discharged in stable condition to follow up with his primary care physician in 2-3 days Patient Condition at Discharge: Stable Plan - Discharge Summary Discharge Rx Participant: No New Discharge Prescriptions: No Action Aspirin EC [Ecotrin Low Dose] 81 mg PO DAILY Metoprolol Tartrate [Lopressor] 100 mg PO BID #120 tab amLODIPine [Norvasc] 10 mg PO DAILY Furosemide [Lasix] 40 mg PO BID Insulin Lispro [humaLOG Kwikpen] See Protocol SQ ACHS Losartan [Cozaar] 50 mg PO DAILY Budesonide-Formot 160-4.5 Mcg [Symbicort 160-4.5 Mcg Inhaler] 2 puff INHALATION RT-BID PRN PRN Reason: Dyspnea Insulin Glargine,Hum.rec.anlog [Lantus Solostar] 23 unit SQ HS Atorvastatin [Lipitor] 80 mg PO HS methylPREDNISolone Dose Pack [Medrol Dose Pack] See Taper Azithromycin [Zithromax Z-pack] 1 tab PO DAILY Discharge Medication List Aspirin EC [Ecotrin Low Dose] 81 mg PO DAILY 10/13/16 [History] Metoprolol Tartrate [Lopressor] 100 mg PO BID #120 tab 10/19/16 [Rx] Furosemide [Lasix] 40 mg PO BID 12/07/16 [History] Insulin Lispro [humaLOG Kwikpen] See Protocol SQ ACHS 12/07/16 [History] Ipratropium-Albuterol Nebulize [Duoneb 0.5 mg-3 mg/3 ml Soln] 3 ml INHALATION RT -Q6H PRN #120 ampul.neb 12/07/16 [Rx] Losartan [Cozaar] 50 mg PO DAILY 12/07/16 [History] amLODIPine [Norvasc] 10 mg PO DAILY 12/07/16 [History] Budesonide-Formot 160-4.5 Mcg [Symbicort 160-4.5 Mcg Inhaler] 2 puff INHALATION RT-BID PRN 05/23/17 [History] Atorvastatin [Lipitor] 80 mg PO HS 09/21/17 [History] Insulin Glargine,Hum.rec.anlog [Lantus Solostar] 23 unit SQ HS 09/21/17 [History ] Azithromycin [Zithromax Z-pack] 1 tab PO DAILY 09/23/17 [History] methylPREDNISolone Dose Pack [Medrol Dose Pack] See Taper 09/23/17 [History] Follow up Appointment(s)/Referral(s): Tomasz Isbell DO [Primary Care Provider] - 1-2 days
[2017-09-23 11:29] VITALS: PULSE 76
[2017-09-23 11:58] LABS: Glucose,Whole Blood 242 mg/dL (75-99)
[2017-09-23 12:46] VITALS: BMI 36.2
--- NOTE | 2017-09-23 13:33 | P.PN ---
Subjective Progress Note Date: 09/23/17 71-year-old morbidly obese male of Dr. Beatty patient with past medical history of morbid obesity, COPD, obstructive sleep apnea maintained on BiPAP therapy at a pressure of 20/15 cm of water on outpatient basis in addition to history of diastolic congestive heart failure, history of CAD, hypertension, hyperlipidemia and obesity. The patient also has a component of chronic renal failure. The patient came into the hospital because of worsening shortness of breath. The patient increased cough congestion chest that is so wheezing. The exact trigger is not clear. The patient is a nonsmoker. No chest pain. No angina. No swelling lower extremities. No orthopnea. His chest x-ray shows minimal platelike atelectatic changes in the right costophrenic angle. Otherwise there is no evidence of any airspace disease or pneumonias. The white cell count is not elevated. Renal function is imperative stable with a creatinine of 1.3. Influenza screen was negative. The patient was started on accommodation bronchodilators and systemic steroids. Clinically is feeling better compared to yesterday. No new complaints otherwise for now. Shortness of breath apparently is improving. He has been maintained on Symbicort on outpatient basis regarding his COPD and he has DuoNeb nebulized treatments around the clock. On 09/23/2017, the patient is being seen for a follow-up. Much improved compared to yesterday. Less focused spastic and wheezy. No chest pain. No change in mental status. Diabetic education was done. The patient will like to get discharged home today. He will need a prednisone burst taper at the time of discharge. He has also BiPAP machine that utilizes regarding his obstructive sleep apnea. He has been maintained on Symbicort on outpatient basis regarding his COPD and DuoNeb nebulized treatments around the clock. Objective - Vital Signs Vital signs: Vital Signs Temp 97.9 F 09/23/17 07:00 Pulse 76 09/23/17 11:23 Resp 18 09/23/17 07:26 BP 134/75 09/23/17 07:00 Pulse Ox 96 09/23/17 07:26 Intake & Output 09/22/17 09/23/17 09/23/17 18:59 06:59 18:59 Intake Total 0 1600 Balance 0 1600 Weight 117.934 kg Intake: Intake, IV Titration 0 800 Amount Sodium Chloride 0.9% 1, 0 800 000 ml @ 50 mls/hr IV . Q20H [facility] Rx#:[id number] Oral 800 Other: Voiding Method Toilet Toilet Toilet # Voids 3 1 - Exam General appearance: no average body habitus, cooperative, no disheveled, mild distress, morbidly obese, no no acute distress, no obese, no severe distress, no thin - EENT Eyes: no abnormal pupil, no anicteric sclerae, no disc margins sharp, no edentulous, no EOMI, no PERRLA, no fundus normal, no photophobia, no dentition normal, no poor dentition, no ptosis, no scleral icterus, normal appearance, and the patient has significant crowding of the posterior oropharynx with a Mallampati class IV. ENT: hard of hearing, no hearing grossly normal, no NA/AT, normal oropharynx, no other, pharyngeal erythema, no thrush, no tonsillar exudates, no tonsillar swelling Ears: bilateral: normal - Neck Neck: no lymphadenopathy, normal ROM, no other, no rigidity, no stridor, no thyromegaly Carotids: bilateral: upstroke normal Thyroid: bilateral: normal size - Respiratory Respiratory: bilateral: diminished, dullness, rales, rhonchi, wheezing, prolonged expiration, prolonged inspiration, improved compared to yesterday - Cardiovascular Rhythm: irregularly irregular Heart sounds: normal: S1, S2 Abnormal Heart Sounds: systolic murmur, S3 Gallop - Gastrointestinal General gastrointestinal: no absent bowel sounds, no decreased bowel sounds, distended, hepatomegaly, no hyperactive bowel sounds, normal bowel sounds, no organomegaly, no rigid, scaphoid, soft, no splenomegaly, no tenderness, no umbilical hernia, no ventral hernia - Integumentary Integumentary: no calor, no cellulitis, cyanotic, no decreased turgor, no flushed, no jaundiced, normal, no normal turgor, pale, rash, no ulcer - Neurologic Neurologic: CNII-XII intact - Musculoskeletal Musculoskeletal: gait normal, generalized weakness, strength equal bilaterally, right sided weakness - Psychiatric Psychiatric: A&O x's 3, appropriate affect - Labs CBC & Chem 7: 09/23/17 06:29 09/23/17 06:29 Labs: Abnormal Lab Results - Last 24 Hours (Table) 09/22/17 09/22/17 09/22/17 Range/Units 05:35 17:32 20:19 WBC (3.8-10.6) k/uL RBC (4.30-5.90) m/uL Hgb (13.0-17.5) gm/dL Hct (39.0-53.0) % RDW (11.5-15.5) % Neutrophils # (1.3-7.7) k/uL BUN (9-20) mg/dL Creatinine (0.66-1.25) mg/dL POC Glucose (mg/dL) 275 H 442 H (75-99) mg/dL Hemoglobin A1c 12.1 H (4.0-6.0) % Total Bilirubin (0.2-1.3) mg/dL Total Protein (6.3-8.2) g/dL 09/23/17 09/23/17 09/23/17 Range/Units 06:29 06:29 07:02 WBC 11.8 H (3.8-10.6) k/uL RBC 4.18 L (4.30-5.90) m/uL Hgb 12.7 L (13.0-17.5) gm/dL Hct 37.7 L (39.0-53.0) % RDW 16.2 H (11.5-15.5) % Neutrophils # 9.1 H (1.3-7.7) k/uL BUN 41 H (9-20) mg/dL Creatinine 1.35 H (0.66-1.25) mg/dL POC Glucose (mg/dL) 126 H (75-99) mg/dL Hemoglobin A1c (4.0-6.0) % Total Bilirubin 2.1 H (0.2-1.3) mg/dL Total Protein 6.1 L (6.3-8.2) g/dL 09/23/17 Range/Units 11:54 WBC (3.8-10.6) k/uL RBC (4.30-5.90) m/uL Hgb (13.0-17.5) gm/dL Hct (39.0-53.0) % RDW (11.5-15.5) % Neutrophils # (1.3-7.7) k/uL BUN (9-20) mg/dL Creatinine (0.66-1.25) mg/dL POC Glucose (mg/dL) 242 H (75-99) mg/dL Hemoglobin A1c (4.0-6.0) % Total Bilirubin (0.2-1.3) mg/dL Total Protein (6.3-8.2) g/dL Microbiology - Last 24 Hours (Table) 09/21/17 14:27 Blood Culture - Preliminary Blood No Growth after 24 hours Assessment and Plan Plan: 1 acute respiratory distress due to COPD exacerbation and the chest x-ray done showed no acute abnormalities. Clinically improved on today's evaluation. 2 COPD exacerbation 3 obstructive sleep apnea maintained on BiPAP at a pressure of 20/15 4 hypertension: 5 hyperlipidemia: 6 atherosclerotic heart disease, currently free of any angina. 7 obesity 8. 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 Renal function is stable with a creatinine of 1.3. No significant leukocytosis. Clinically the patient is stable. Diabetic education was given.
== END 2017-09-23 14:48 | disposition home or self-care (01) | DRG 191 ==
LOC: EC 14:05 → 5MS5E 16:06
PROVIDERS: ADMIT Internal Medicine; ATTEND Internal Medicine
DX: J44.1 Chronic obstructive pulmonary disease with (acute) exacerbation (principal); I13.0 Hypertensive heart and chronic kidney disease with heart failure and stage 1 through stage 4 chronic kidney disease, or unspecified chronic kidney disease; E11.22 Type 2 diabetes mellitus with diabetic chronic kidney disease; E11.65 Type 2 diabetes mellitus with hyperglycemia; I50.32 Chronic diastolic (congestive) heart failure; N18.3 Chronic kidney disease, stage 3 (moderate); E78.5 Hyperlipidemia, unspecified; I25.10 Atherosclerotic heart disease of native coronary artery without angina pectoris; G47.33 Obstructive sleep apnea (adult) (pediatric); T38.0X5A Adverse effect of glucocorticoids and synthetic analogues, initial encounter; R14.0 Abdominal distension (gaseous); R00.0 Tachycardia, unspecified; E66.01 Morbid (severe) obesity due to excess calories; Z68.36 Body mass index [BMI] 36.0-36.9, adult; Z79.4 Long term (current) use of insulin; Z79.82 Long term (current) use of aspirin; Z85.828 Personal history of other malignant neoplasm of skin; Z79.51 Long term (current) use of inhaled steroids; Z79.899 Other long term (current) drug therapy; Z83.3 Family history of diabetes mellitus; Z82.49 Family history of ischemic heart disease and other diseases of the circulatory system; Z82.3 Family history of stroke; Z87.19 Personal history of other diseases of the digestive system; Z90.49 Acquired absence of other specified parts of digestive tract; I25.2 Old myocardial infarction; Z95.5 Presence of coronary angioplasty implant and graft
CPT/HCPCS: 36415; 71046; 76700; 80053; 82550; 82553; 83036; 83735; 83880; 84484; 85025; 85610; 85730; 87040; 87502; 93005; 94640; 99285

== ENCOUNTER 2017-10-03 14:13 | Inpatient (IN) | payer MEDICARE ==
--- NOTE | 2017-10-03 14:42 | ED ---
General Adult HPI - General Chief complaint: Recheck/Abnormal Lab/Rx Stated complaint: Copd Time Seen by Provider: 10/03/17 14:26 Source: patient, RN notes reviewed Mode of arrival: ambulatory Limitations: no limitations - History of Present Illness Initial comments: 72-year-old man with past medical history of COPD and diabetes presents with a chief complaint of cough cold like symptoms. He's been getting sick over the last week or so he was initially started on steroids along with his breathing treatments every 4 hours however he is not getting any better.. He went to his doctor today for a recheck and was sent here. He states he's been using his breathing treatments he states that he just continues to have this shortness of breath and cough. Patient states that he went to his doctor he was found have a glucose around 300 and he was referred here. Patient states he is having some sputum production with the cough. Patient denies any high fevers that he is aware of. He is not currently having any other symptoms at this time. Patient denies any recent fever, chills, chest pain, back pain, abdominal pain, nausea vomiting, numbness or tingling, dysuria or hematuria, constipation or diarrhea, headaches or visual changes, or any other current symptoms. - Related Data Home Medications Medication Instructions Recorded Confirmed Aspirin EC [Ecotrin Low Dose] 81 mg PO DAILY 10/13/16 10/03/17 Furosemide [Lasix] 40 mg PO BID 12/07/16 10/03/17 Insulin Lispro [humaLOG Kwikpen] See Protocol SQ ACHS 12/07/16 10/03/17 Losartan [Cozaar] 50 mg PO DAILY 12/07/16 10/03/17 amLODIPine [Norvasc] 10 mg PO DAILY 12/07/16 10/03/17 Budesonide-Formot 160-4.5 Mcg 2 puff INHALATION RT-BID PRN 05/23/17 10/03/17 [Symbicort 160-4.5 Mcg Inhaler] Atorvastatin [Lipitor] 80 mg PO HS 09/21/17 10/03/17 Insulin Glargine,Hum.rec.anlog 23 unit SQ HS 09/21/17 10/03/17 [Lantus Solostar] Previous Rx's Medication Instructions Recorded Metoprolol Tartrate [Lopressor] 100 mg PO BID #120 tab 10/19/16 Ipratropium-Albuterol Nebulize 3 ml INHALATION RT-Q6H PRN #120 12/07/16 [Duoneb 0.5 mg-3 mg/3 ml Soln] ampul.neb Allergies Allergy/AdvReac Type Severity Reaction Status Date / Time No Known Allergies Allergy Verified 10/03/17 14:45 Review of Systems ROS Statement: Those systems with pertinent positive or pertinent negative responses have been documented in the HPI. ROS Other: All systems not noted in ROS Statement are negative. Past Medical History Past Medical History: Coronary Artery Disease (CAD), COPD, Diabetes Mellitus, Hyperlipidemia, Hypertension, Myocardial Infarction ([place]), Pneumonia, Sleep Apnea /CPAP/BIPAP Additional Past Medical History / Comment(s): Obesity, COPD, coronary artery disease, diabetes mellitus, hypertension, hyperlipidemia, previous myocardial infarction, previous hospitalization for COPD exacerbation, skin cancer from his scalp that has been removed, diverticulosis Last Myocardial Infarction Date:: 2011 History of Any Multi-Drug Resistant Organisms: None Reported Past Surgical History: Cholecystectomy, Heart Catheterization With Stent, Hernia Repair Additional Past Surgical History / Comment(s): UMBILICAL HERNIA REPAIR.VASECTOMY , colonoscopy, skin ca on scalp removed. Past Anesthesia/Blood Transfusion Reactions: No Reported Reaction Date of Last Stent Placement:: 2011 Past Psychological History: No Psychological Hx Reported Smoking Status: Never smoker Past Alcohol Use History: None Reported Past Drug Use History: None Reported - Past Family History Father Family Medical History: CVA/TIA, Hypertension, Myocardial Infarction ([place]) Additional Family Medical History / Comment(s): AT AGE 73-[place] Mother Family Medical History: Dementia, Renal Disease Additional Family Medical History / Comment(s): AT AGE 56 COMPLICATIONS FROM DIABETES General Exam - General Exam Comments Initial Comments: General: The patient is awake and alert, in no distress, and does not appear acutely ill. Eye: Pupils are equal, round and reactive to light, extra-ocular movements are intact; there is normal conjunctiva bilaterally. No signs of icterus. Ears, nose, mouth and throat: There are moist mucous membranes and no oral lesions. Neck: The neck is supple, there is no tenderness. Cardiovascular: There is a regular rate and rhythm. No murmur, rub or gallop is appreciated. Respiratory: Lungs are clear to auscultation, respirations are non-labored, breath sounds are equal. Diffuse inspiratory and expiratory wheeze, no stridor , rales, or rhonchi. Gastrointestinal: Soft, non-distended, non-tender abdomen without masses or organomegaly noted. There is no rebound or guarding present. No CVA tenderness. Bowel sounds are unremarkable. Back: There is no tenderness to palpation in the midline. There is no obvious deformity. No rashes noted. Musculoskeletal: Normal ROM, no tenderness, There is no pedal edema. There is no calf tenderness or swelling. Sensation intact. Pulses equal bilaterally 2+. Neurological: CN II-XII intact, There are no obvious motor or sensory deficits. Coordination appears grossly intact. Speech is normal. Skin: Skin is warm and dry and no rashes or lesions are noted. Psychiatric: Cooperative, appropriate mood & affect, normal judgment. Limitations: no limitations Course Vital Signs 10/03/17 10/03/17 10/03/17 14:21 15:13 15:29 Temperature 97.4 F L Pulse Rate 72 78 74 Respiratory 18 Rate Blood Pressure 145/88 O2 Sat by Pulse 97 Oximetry 10/03/17 10/03/17 10/03/17 15:31 16:00 16:13 Temperature Pulse Rate 73 80 73 Respiratory 16 Rate Blood Pressure 114/70 O2 Sat by Pulse 95 Oximetry - Reevaluation(s) Reevaluation #1: 10/03/17 17:05 Patient reassessed about 30 minutes after breathing treatments about [id number] on room air. He continues to have a wheeze. Medical Decision Making - Medical Decision Making 72-year-old male presents for cough with shortness of breath. At this time patient has appeared to fill outpatient treatment for COPD. Patient oral steroids. No improvement. This will admit the patient for steroids be treatments and antibiotics. Patient family stated the Lyle on questions have been answered. This time patient will be admitted. - Lab Data Result diagrams: 10/03/17 14:42 10/03/17 14:42 Lab Results 10/03/17 10/03/17 10/03/17 Range/Units 14:42 14:42 14:42 WBC 8.3 (3.8-10.6) k/uL RBC 4.43 (4.30-5.90) m/uL Hgb 13.5 (13.0-17.5) gm/dL Hct 39.7 (39.0-53.0) % MCV 89.7 (80.0-100.0) fL MCH 30.4 (25.0-35.0) pg MCHC 33.9 (31.0-37.0) g/dL RDW 15.9 H (11.5-15.5) % Plt Count 250 (150-450) k/uL Neutrophils % 79 % Lymphocytes % 9 % Monocytes % 8 % Eosinophils % 0 % Basophils % 0 % Neutrophils # 6.6 (1.3-7.7) k/uL Lymphocytes # 0.8 L (1.0-4.8) k/uL Monocytes # 0.7 (0-1.0) k/uL Eosinophils # 0.0 (0-0.7) k/uL Basophils # 0.0 (0-0.2) k/uL PT (9.0-12.0) sec INR (<1.2) APTT (22.0-30.0) sec Sodium 137 (137-145) mmol/L Potassium 4.4 (3.5-5.1) mmol/L Chloride 98 (98-107) mmol/L Carbon Dioxide 28 (22-30) mmol/L Anion Gap 11 mmol/L BUN 38 H (9-20) mg/dL Creatinine 1.48 H (0.66-1.25) mg/dL Est GFR (MDRD) Af Amer 56 (>60 ml/min/1.73 sqM) Est GFR (MDRD) Non-Af 46 (>60 ml/min/1.73 sqM) Glucose 304 H (74-99) mg/dL POC Glucose (mg/dL) (75-99) mg/dL POC Glu Cigarette Paper Tester ID Plasma Lactic Acid Yuri (0.7-2.0) mmol/L Calcium 9.3 (8.4-10.2) mg/dL Total Bilirubin 2.5 H (0.2-1.3) mg/dL AST 27 (17-59) U/L ALT 50 (21-72) U/L Alkaline Phosphatase 75 (38-126) U/L Total Protein 6.4 (6.3-8.2) g/dL Albumin 4.0 (3.5-5.0) g/dL Amylase 54 (30-110) U/L Lipase 111 (23-300) U/L Acetone, Qual Negative (Negative) Influenza Type A RNA Not Detected (Not Detectd) Influenza Type B (PCR) Not Detected (Not Detectd) 10/03/17 10/03/17 10/03/17 Range/Units 14:42 14:42 14:48 WBC (3.8-10.6) k/uL RBC (4.30-5.90) m/uL Hgb (13.0-17.5) gm/dL Hct (39.0-53.0) % MCV (80.0-100.0) fL MCH (25.0-35.0) pg MCHC (31.0-37.0) g/dL RDW (11.5-15.5) % Plt Count (150-450) k/uL Neutrophils % % Lymphocytes % % Monocytes % % Eosinophils % % Basophils % % Neutrophils # (1.3-7.7) k/uL Lymphocytes # (1.0-4.8) k/uL Monocytes # (0-1.0) k/uL Eosinophils # (0-0.7) k/uL Basophils # (0-0.2) k/uL PT 10.3 (9.0-12.0) sec INR 1.0 (<1.2) APTT 23.6 (22.0-30.0) sec Sodium (137-145) mmol/L Potassium (3.5-5.1) mmol/L Chloride (98-107) mmol/L Carbon Dioxide (22-30) mmol/L Anion Gap mmol/L BUN (9-20) mg/dL Creatinine (0.66-1.25) mg/dL Est GFR (MDRD) Af Amer (>60 ml/min/1.73 sqM) Est GFR (MDRD) Non-Af (>60 ml/min/1.73 sqM) Glucose (74-99) mg/dL POC Glucose (mg/dL) 307 H (75-99) mg/dL POC Glu Cigarette Paper Tester ID Roge Cordero Plasma Lactic Acid Yuri 0.9 (0.7-2.0) mmol/L Calcium (8.4-10.2) mg/dL Total Bilirubin (0.2-1.3) mg/dL AST (17-59) U/L ALT (21-72) U/L Alkaline Phosphatase (38-126) U/L Total Protein (6.3-8.2) g/dL Albumin (3.5-5.0) g/dL Amylase (30-110) U/L Lipase (23-300) U/L Acetone, Qual (Negative) Influenza Type A RNA (Not Detectd) Influenza Type B (PCR) (Not Detectd) - Radiology Data Radiology results: report reviewed, image reviewed Disposition Clinical Impression: COPD exacerbation, Failure of outpatient treatment, Hyperglycemia Disposition: ADMITTED IP TO THIS [facility] Condition: Stable Referrals: Tomasz Isbell DO [Primary Care Provider] - 1-2 days Time of Disposition: 17:07 Decision Date: 10/03/17 Decision Time: 17:08
[2017-10-03] MEDS ORDERED: ALBUTEROL NEBULIZED 7.5 MG, IPRATROPIUM NEBULIZED 0.5 MG, SODIUM CHLORIDE 0.9% NEBULIZ ... INHALATION ONE ×3 (14:43)
[2017-10-03 15:09] LABS: Glucose,Whole Blood 307 mg/dL (75-99)
[2017-10-03 15:13] LABS: Basophils % (A) 0 %; Eosinophils % (A) 0 %; HCT 39.7 % (39.0-53.0); HGB 13.5 gm/dL (13.0-17.5); Lymphocytes # (A) 0.8 k/uL (1.0-4.8); Lymphocytes % (A) 9 %; MCH 30.4 pg (25.0-35.0); MCHC 33.9 g/dL (31.0-37.0); MCV 89.7 fL (80.0-100.0); Mean Platelet Volume 7.2; Monocytes # (A) 0.7 k/uL (0-1.0); Monocytes % (A) 8 %; Neutrophils # (A) 6.6 k/uL (1.3-7.7); Neutrophils % (A) 79 %; Platelet Count 250 k/uL (150-450); RBC 4.43 m/uL (4.30-5.90); RDW 15.9 % (11.5-15.5); WBC 8.3 k/uL (3.8-10.6)
[2017-10-03 15:22] LABS: ALT 50 U/L (21-72); AST 27 U/L (17-59); Alkaline Phosphatase 75 U/L (38-126); Amylase 54 U/L (30-110); Anion Gap 11 mmol/L; Blood Urea Nitrogen 38 mg/dL (9-20); Calcium 9.3 mg/dL (8.4-10.2); Carbon Dioxide 28 mmol/L (22-30); Chloride 98 mmol/L (98-107); Glucose 304 mg/dL (74-99); Lipase 111 U/L (23-300); Potassium 4.4 mmol/L (3.5-5.1); Sodium 137 mmol/L (137-145); Total Bilirubin 2.5 mg/dL (0.2-1.3); Total Protein 6.4 g/dL (6.3-8.2)
[2017-10-03 15:23] LABS: Partial Thromboplastin Time 23.6 sec (22.0-30.0); Prothrombin Time 10.3 sec (9.0-12.0)
--- NOTE | 2017-10-03 15:29 | XR ---
EXAMINATION TYPE: XR chest 2V DATE OF EXAM: 10/03/2017 COMPARISON: 09/21/2017 HISTORY: Shortness of breath TECHNIQUE: Frontal and lateral views of the chest are obtained. FINDINGS: Scattered senescent parenchymal changes noted. Hyperinflation compatible with COPD. No evidence for infiltrate. No evidence for atelectasis. Heart size is stable. Mediastinal structures are stable and grossly unremarkable. No evidence for hilar prominence. Degenerative changes dorsal spine. IMPRESSION: 1. No evidence for acute pulmonary disease.
[2017-10-03] MEDS ORDERED: methylPREDNISolone SOD SUCCI 125 MG/2 ML VIAL IV STA (15:38)
[2017-10-03 18:43] VITALS: BMI 34.8
[2017-10-03 18:45] LABS: Glucose,Whole Blood 333 mg/dL (75-99)
[2017-10-03] MEDS: INSULIN ASPART 100 UNIT/ML 1 ML 10 ML VIAL SQ SCH ×2 (18:53→21:29)
[2017-10-03] MEDS: FUROSEMIDE 40 MG TAB PO SCH (18:53)
[2017-10-03] MEDS: METOPROLOL TARTRATE 50 MG TAB PO SCH (20:14)
[2017-10-03] MEDS: ATORVASTATIN 80 MG TAB PO SCH (20:14)
[2017-10-03 21:08] LABS: Glucose,Whole Blood 396 mg/dL (75-99)
[2017-10-03 21:56] LABS: Appearance,Urine Clear (Clear); Bilirubin,Urine Negative (Negative); Blood,Urine Negative (Negative); Color,Urine Yellow; Glucose,Urine (UA) 4+ (Negative); Hyaline Casts,Urine 7 /lpf (0-2); Ketones,Urine Negative (Negative); Leukocyte Esterase,Urine Negative (Negative); Mucus,Urine Rare /hpf; Nitrite,Urine Negative (Negative); Protein,Urine 1+ (Negative); RBC,Urine <1 /hpf (0-5); Specific Gravity,Urine 1.009 (1.001-1.035); Urobilinogen,Urine <2.0 mg/dL (<2.0); WBC,Urine 1 /hpf (0-5)
[2017-10-04] MEDS: methylPREDNISolone SOD SUCCI 125 MG/2 ML VIAL IV SCH ×4 (00:22→18:05)
[2017-10-04 02:23] LABS: Hemoglobin A1C 12.1 % (4.0-6.0)
[2017-10-04 06:05] LABS: Glucose,Whole Blood 428 mg/dL (75-99)
[2017-10-04] MEDS ORDERED: INSULIN REGULAR BOLUS (FROM DRIP BAG) IV ONE ×2 (06:31→19:46)
[2017-10-04] MEDS: INSULIN REGULAR 100 UNIT in SODIUM CHLORIDE 0.9% 100 ML IV SCH ×3 (07:10→20:29)
[2017-10-04 07:48] LABS: Glucose,Whole Blood 370 mg/dL (75-99)
[2017-10-04 08:00] LABS: Glucose,Whole Blood 394 mg/dL (75-99)
[2017-10-04 08:19] LABS: Glucose,Whole Blood 348 mg/dL (75-99)
[2017-10-04] MEDS: IPRATROPIUM-ALBUTEROL 3 ML NEB INHALATION PRN ×4 (08:34→20:09)
[2017-10-04 08:58] LABS: Glucose,Whole Blood 378 mg/dL (75-99)
[2017-10-04] MEDS: METOPROLOL TARTRATE 50 MG TAB PO SCH ×2 (09:14→21:59)
[2017-10-04] MEDS: LEVOFLOXACIN 500 MG TAB PO SCH (09:14)
[2017-10-04] MEDS: amLODIPine 10 MG TAB PO SCH (09:14)
[2017-10-04] MEDS: FUROSEMIDE 40 MG TAB PO SCH ×2 (09:14→16:16)
[2017-10-04] MEDS: LOSARTAN 50 MG TAB PO SCH (09:14)
[2017-10-04] MEDS: ASPIRIN 81 MG PO SCH (09:15)
[2017-10-04 09:17] LABS: Glucose,Whole Blood 383 mg/dL (75-99)
[2017-10-04 09:50] LABS: Glucose,Whole Blood 382 mg/dL (75-99)
[2017-10-04 10:17] LABS: Glucose,Whole Blood 288 mg/dL (75-99)
[2017-10-04 11:17] LABS: Glucose,Whole Blood 276 mg/dL (75-99)
[2017-10-04 11:35] LABS: Glucose,Whole Blood 213 mg/dL (75-99)
[2017-10-04 12:02] LABS: Glucose,Whole Blood 159 mg/dL (75-99)
--- NOTE | 2017-10-04 12:45 | P.HPIM ---
History of Present Illness H&P Date: 10/04/17 Chief Complaint: severe dyspnea This is a 72-year-old male one of Dr. Isbell with a previous medical history significant for on CAD, diabetes mellitus type 2, hypertension and hypertensive cardiovascular disease, history of sleep apnea on CPAP, history of COPD, patient was recently hospitalized at [facility] 2017 after he was admitted for acute exacerbation of COPD he was in the hospital for few days and he was sent home patient has been complaining of increased respiratory distress last few days, and the patient ended up coming to the ER for evaluation he went to see Dr. Isbell and he sent him to the ER for evaluation on patient was found to have a COPD exacerbation, he was admitted to the hospital was placed on Solu-Medrol 60 minute gram IV push every 6 hours as well as insulin drip and subsequently was taken off his insulin drip because of his blood glucose level dropped to 150 mg deciliter and he was placed on Lantus 23 units at bedtime along with a Humalog per sliding scale. Review of Systems Constitutional: Reports weight gain, Denies chills, Denies chronic headaches, Denies lethargy, Denies malaise, Denies weight loss Eyes: denies blurred vision, denies bulging eye, denies decreased vision, denies diplopia Ears: deny: decreased hearing Ears, nose, mouth and throat: Denies dysphagia, Denies neck lump, Denies swelling in throat, Denies sore throat Cardiovascular: Reports decreased exercise tolerance, Reports dyspnea on exertion, Reports high blood pressure, Reports shortness of breath, Denies chest pain, Denies paroxysmal nocturnal dyspnea, Denies phlebitis, Denies rapid heart beat Respiratory: Reports congestion, Reports cough, Reports cough with sputum, Reports dyspnea, Reports sleep apnea, Reports snoring, Reports wheezing Gastrointestinal: Denies abdominal pain, Denies bloating, Denies BRBPR, Denies early satiety, Denies loss of appetite, Denies melena, Denies nausea, Denies vomiting Genitourinary: Denies dysuria, Denies nocturia, Denies polyuria Musculoskeletal: Denies myalgias Musculoskeletal: absent: ankle pain, ankle stiffness, ankle swelling, elbow pain , elbow stiffness, elbow swelling, foot pain, foot stiffness, foot swelling, hand pain, hand stiffness, hand swelling, hip pain, hip stiffness, hip swelling , knee pain, knee stiffness, knee swelling, shoulder pain, shoulder stiffness, shoulder swelling, wrist pain, wrist stiffness, wrist swelling Integumentary: Denies pruritus, Denies rash Neurological: Denies numbness, Denies weakness Psychiatric: Denies anxiety, Denies depression Endocrine: Denies fatigue, Denies weight change Past Medical History Past Medical History: Coronary Artery Disease (CAD), COPD, Diabetes Mellitus, Hyperlipidemia, Hypertension, Myocardial Infarction ([place]), Pneumonia, Sleep Apnea /CPAP/BIPAP Additional Past Medical History / Comment(s): Obesity, COPD, coronary artery disease, diabetes mellitus, hypertension, hyperlipidemia, previous myocardial infarction, previous hospitalization for COPD exacerbation, skin cancer from his scalp that has been removed, diverticulosis Last Myocardial Infarction Date:: 2011 History of Any Multi-Drug Resistant Organisms: None Reported Past Surgical History: Cholecystectomy, Heart Catheterization With Stent, Hernia Repair Additional Past Surgical History / Comment(s): UMBILICAL HERNIA REPAIR.VASECTOMY , colonoscopy, skin ca on scalp removed. Past Anesthesia/Blood Transfusion Reactions: No Reported Reaction Date of Last Stent Placement:: 2011 Past Psychological History: No Psychological Hx Reported Smoking Status: Never smoker Past Alcohol Use History: None Reported Additional Past Alcohol Use History / Comment(s): Patient is a lifelong nonsmoker. He worked [employer]. Past Drug Use History: None Reported - Past Family History Father Family Medical History: CVA/TIA, Hypertension, Myocardial Infarction ([place]) Additional Family Medical History / Comment(s): AT AGE 73-[place] Mother Family Medical History: Dementia, Renal Disease Additional Family Medical History / Comment(s): AT AGE 56 COMPLICATIONS FROM DIABETES Medications and Allergies Home Medications Medication Instructions Recorded Confirmed Type Aspirin EC [Ecotrin Low Dose] 81 mg PO DAILY 10/13/16 10/03/17 History Metoprolol Tartrate [Lopressor] 100 mg PO BID #120 tab 10/19/16 10/03/17 Rx Furosemide [Lasix] 40 mg PO BID 12/07/16 10/03/17 History Insulin Lispro [humaLOG Kwikpen] See Protocol SQ ACHS 12/07/16 10/03/17 History Ipratropium-Albuterol Nebulize 3 ml INHALATION RT-Q6H PRN #120 12/07/16 Rx [Duoneb 0.5 mg-3 mg/3 ml Soln] ampul.neb Losartan [Cozaar] 50 mg PO DAILY 12/07/16 10/03/17 History amLODIPine [Norvasc] 10 mg PO DAILY 12/07/16 10/03/17 History Budesonide-Formot 160-4.5 Mcg 2 puff INHALATION RT-BID PRN 05/23/17 10/03/17 History [Symbicort 160-4.5 Mcg Inhaler] Atorvastatin [Lipitor] 80 mg PO HS 09/21/17 10/03/17 History Insulin Glargine,Hum.rec.anlog 23 unit SQ HS 09/21/17 10/03/17 History [Lantus Solostar] Allergies Allergy/AdvReac Type Severity Reaction Status Date / Time No Known Allergies Allergy Verified 10/03/17 14:45 Physical Exam Vitals: Vital Signs Temp Pulse Pulse Resp BP BP Pulse Ox 10/04/17 12:16 76 10/04/17 12:04 76 10/04/17 08:50 76 10/04/17 08:34 76 10/04/17 08:00 87 16 10/04/17 07:00 97.0 F L 87 16 134/98 95 10/03/17 23:00 97.2 F L 68 18 118/71 92 L 10/03/17 18:29 97.6 F 71 18 155/96 95 10/03/17 17:51 99.7 F H 79 16 141/96 97 10/03/17 17:18 91 16 143/92 99 10/03/17 16:13 73 10/03/17 16:00 80 10/03/17 15:31 73 16 114/70 95 10/03/17 15:29 74 10/03/17 15:13 78 10/03/17 14:21 97.4 F L 72 18 145/88 97 Intake and Output 10/03/17 10/04/17 10/04/17 22:59 06:59 14:59 Intake Total 90.481 Output Total 350 350 Balance -350 -259.519 Intake: Intake, IV Titration 90.481 Amount Insulin Regular 100 unit 90.481 In Sodium Chloride 0.9% 100 ml @ Titrate IV .Q0M [facility] Rx#:[id number] Output: Urine 350 350 Other: # Voids 1 1 1 Weight 113.398 kg - Constitutional General appearance: mild distress, obese - EENT Eyes: anicteric sclerae, EOMI, PERRLA, no ptosis, normal appearance ENT: hearing grossly normal, NA/AT, normal oropharynx, no thrush Ears: bilateral: normal - Neck Neck: no lymphadenopathy, normal ROM, no rigidity, no stridor, no thyromegaly Carotids: bilateral: upstroke normal Thyroid: bilateral: normal size - Respiratory Respiratory: bilateral: diminished, rhonchi, wheezing, prolonged expiration, negative: dullness, rales - Cardiovascular Rhythm: regular Heart sounds: normal: S1, S2 Abnormal Heart Sounds: no S3 Gallop, no S4 Gallop, no click - Gastrointestinal General gastrointestinal: normal bowel sounds, soft, no splenomegaly, no tenderness - Genitourinary Male genitourinary: enlarged prostate - Integumentary Integumentary: normal, normal turgor - Neurologic Neurologic: CNII-XII intact - Musculoskeletal Musculoskeletal: strength equal bilaterally - Psychiatric Psychiatric: A&O x's 3, appropriate affect, intact judgment & insight Results CBC & Chem 7: 10/03/17 14:42 10/03/17 14:42 Labs: Abnormal Lab Results - Last 24 Hours (Table) 10/03/17 10/03/17 10/03/17 Range/Units 14:42 14:42 14:42 RDW 15.9 H (11.5-15.5) % Lymphocytes # 0.8 L (1.0-4.8) k/uL BUN 38 H (9-20) mg/dL Creatinine 1.48 H (0.66-1.25) mg/dL Glucose 304 H (74-99) mg/dL POC Glucose (mg/dL) (75-99) mg/dL Hemoglobin A1c 12.1 H (4.0-6.0) % Total Bilirubin 2.5 H (0.2-1.3) mg/dL Urine Protein (Negative) Urine Glucose (UA) (Negative) Hyaline Casts (0-2) /lpf Urine Mucus (None) /hpf 10/03/17 10/03/17 10/03/17 Range/Units 14:42 14:48 18:32 RDW (11.5-15.5) % Lymphocytes # (1.0-4.8) k/uL BUN (9-20) mg/dL Creatinine (0.66-1.25) mg/dL Glucose (74-99) mg/dL POC Glucose (mg/dL) 307 H 333 H (75-99) mg/dL Hemoglobin A1c (4.0-6.0) % Total Bilirubin (0.2-1.3) mg/dL Urine Protein 1+ H (Negative) Urine Glucose (UA) 4+ H (Negative) Hyaline Casts 7 H (0-2) /lpf Urine Mucus Rare H (None) /hpf 10/03/17 10/04/17 10/04/17 Range/Units 21:05 06:01 07:04 RDW (11.5-15.5) % Lymphocytes # (1.0-4.8) k/uL BUN (9-20) mg/dL Creatinine (0.66-1.25) mg/dL Glucose (74-99) mg/dL POC Glucose (mg/dL) 396 H 428 H 394 H (75-99) mg/dL Hemoglobin A1c (4.0-6.0) % Total Bilirubin (0.2-1.3) mg/dL Urine Protein (Negative) Urine Glucose (UA) (Negative) Hyaline Casts (0-2) /lpf Urine Mucus (None) /hpf 10/04/17 10/04/17 10/04/17 Range/Units 07:46 08:16 08:45 RDW (11.5-15.5) % Lymphocytes # (1.0-4.8) k/uL BUN (9-20) mg/dL Creatinine (0.66-1.25) mg/dL Glucose (74-99) mg/dL POC Glucose (mg/dL) 370 H 348 H 378 H (75-99) mg/dL Hemoglobin A1c (4.0-6.0) % Total Bilirubin (0.2-1.3) mg/dL Urine Protein (Negative) Urine Glucose (UA) (Negative) Hyaline Casts (0-2) /lpf Urine Mucus (None) /hpf 10/04/17 10/04/17 10/04/17 Range/Units 09:15 09:47 10:16 RDW (11.5-15.5) % Lymphocytes # (1.0-4.8) k/uL BUN (9-20) mg/dL Creatinine (0.66-1.25) mg/dL Glucose (74-99) mg/dL POC Glucose (mg/dL) 383 H 382 H 288 H (75-99) mg/dL Hemoglobin A1c (4.0-6.0) % Total Bilirubin (0.2-1.3) mg/dL Urine Protein (Negative) Urine Glucose (UA) (Negative) Hyaline Casts (0-2) /lpf Urine Mucus (None) /hpf 10/04/17 10/04/17 10/04/17 Range/Units 10:52 11:22 11:50 RDW (11.5-15.5) % Lymphocytes # (1.0-4.8) k/uL BUN (9-20) mg/dL Creatinine (0.66-1.25) mg/dL Glucose (74-99) mg/dL POC Glucose (mg/dL) 276 H 213 H 159 H (75-99) mg/dL Hemoglobin A1c (4.0-6.0) % Total Bilirubin (0.2-1.3) mg/dL Urine Protein (Negative) Urine Glucose (UA) (Negative) Hyaline Casts (0-2) /lpf Urine Mucus (None) /hpf Microbiology - Last 24 Hours (Table) 10/03/17 14:42 Urine Culture - Preliminary Urine,Voided Thrombosis Risk Factor Assmnt - DVT/VTE Prophylaxis DVT/VTE Prophylaxis: Pharmacologic Prophylaxis ordered, Mechanical Prophylaxis ordered - Choose All That Apply Any of the Below Risk Factors Present?: Yes Each Factor Represents 1 point: Abnormal pulmonary function (COPD) Other Risk Factors: Yes Each Risk Factor Represents 2 Points: Age 61-74 years Thrombosis Risk Factor Assessment Total Risk Factor Score: 3 Thrombosis Risk Factor Assessment Level: Moderate Risk Assessment and Plan Assessment: Assessment and plan: 1. Acute hypoxemic respiratory failure due to acute exacerbation of COPD. Solu -Medrol 60 mg IV push every 6 hours, DuoNeb 3 mg nebulization 4 times every day , Pulmicort 4 mg nebulization twice every day, start the patient on Levaquin 500 mg orally once every day, pulmonary consultation. 2. Diabetes mellitus type 2 with steroid-induced hyperglycemia. Discontinue insulin drip, start the patient on Levemir 23 units SC at bedtime along with the Humalog per sliding scale, BGM before each meal and bedtime. Continue consistent carbohydrate diet. 3. Acute bronchitis. Continue Levaquin 500 mg orally once every day. 4. CAD post [place]. Continue aspirin 81 mg orally once every day and metoprolol 100 mg orally twice every day along with Lipitor 80 mg orally once every day. 5. Hypertension and hypertensive cardiovascular disease. Continue patient on losartan 50 mg orally once every day as well as metoprolol 100 mg orally twice every day along with amlodipine 5 mg orally once every day. 6. Hyperlipidemia. Continue Lipitor 80 mg orally once every day. 7. Obesity with obstructive sleep apnea. Continue with CPAP. 8. DVT prophylaxis. Continue Lovenox 40 mg subcutaneously every 24 hours. 9. GI Prophylaxis. Protonix 40 mg orally once every day. 10. Admitted to inpatient. Estimate a length of stay 2 midnights. 11. Patient is a full code.
[2017-10-04] MEDS: INSULIN ASPART 100 UNIT/ML 1 ML 10 ML VIAL SQ SCH ×2 (12:57→17:40)
--- NOTE | 2017-10-04 15:38 | P.CNPUL ---
History of Present Illness Consult date: 10/04/17 Requesting physician: Kyra Sullivan Reason for consult: dyspnea, cough, COPD Chief complaint: Coughing, increased shortness of breath, wheezing History of present illness: Salvador is a 72-year-old white male patient that sees Dr. Delacruz in our office for his for his mild COPD, with baseline FEV1 of 81% of predicted, who presented to the hospital on 10/03/2017 at 1440 With complaints of increasing shortness of breath, cough with sputum production. He was recently hospitalized for COPD exacerbation, and discharged on 09/23/2017 after improving significantly. Patient also has history of obstructive sleep apnea, on BiPAP therapy at a pressure of 20/15, hypertension, hyperlipidemia, atherosclerotic heart disease, obesity, diabetes mellitus, chronic renal failure , diastolic congestive heart failure. Chest x-ray from 10/03/2017 shows no evidence for acute pulmonary disease. Patient was afebrile, with no evidence of hypoxia. Currently on room air with O2 sat at 94%. Lab work shows no evidence of leukocytosis, WBC is within normal limits at 8.3, hemoglobin is 13.5 no electrolyte abnormality, BUN of 38, and creatinine of 1.48. There is evidence of hyperglycemia, his blood sugars were in the 300s on admission. Hemoglobin A1c was 12.1. Serum acetone was negative, influenza screen was negative, urinalysis showed 1+ urine protein and 4+ glucose. Clinically patient is significantly wheezy and tight, with prolongation of the expiratory phase. He was started on a combination of Pulmicort, DuoNeb, IV Solu-Medrol, oral Levaquin and admitted for further management. Review of Systems All systems: negative Constitutional: Denies chills, Denies fever Eyes: denies blurred vision, denies pain Ears, nose, mouth and throat: Denies headache, Denies sore throat Cardiovascular: Denies chest pain, Denies shortness of breath Respiratory: Denies cough Gastrointestinal: Denies abdominal pain, Denies diarrhea, Denies nausea, Denies vomiting Musculoskeletal: Denies myalgias Integumentary: Denies pruritus, Denies rash Neurological: Denies numbness, Denies weakness Psychiatric: Denies anxiety, Denies depression Endocrine: Denies fatigue, Denies weight change Past Medical History Past Medical History: Coronary Artery Disease (CAD), COPD, Diabetes Mellitus, Hyperlipidemia, Hypertension, Myocardial Infarction ([place]), Pneumonia, Sleep Apnea /CPAP/BIPAP Additional Past Medical History / Comment(s): Obesity, COPD, coronary artery disease, diabetes mellitus, hypertension, hyperlipidemia, previous myocardial infarction, previous hospitalization for COPD exacerbation, skin cancer from his scalp that has been removed, diverticulosis Last Myocardial Infarction Date:: 2011 History of Any Multi-Drug Resistant Organisms: None Reported Past Surgical History: Cholecystectomy, Heart Catheterization With Stent, Hernia Repair Additional Past Surgical History / Comment(s): UMBILICAL HERNIA REPAIR.VASECTOMY , colonoscopy, skin ca on scalp removed. Past Anesthesia/Blood Transfusion Reactions: No Reported Reaction Date of Last Stent Placement:: 2011 Past Psychological History: No Psychological Hx Reported Smoking Status: Never smoker Past Alcohol Use History: None Reported Additional Past Alcohol Use History / Comment(s): Patient is a lifelong nonsmoker. He worked [employer]. Past Drug Use History: None Reported - Past Family History Father Family Medical History: CVA/TIA, Hypertension, Myocardial Infarction ([place]) Additional Family Medical History / Comment(s): AT AGE 73-[place] Mother Family Medical History: Dementia, Renal Disease Additional Family Medical History / Comment(s): AT AGE 56 COMPLICATIONS FROM DIABETES Medications and Allergies Home Medications Medication Instructions Recorded Confirmed Type Aspirin EC [Ecotrin Low Dose] 81 mg PO DAILY 10/13/16 10/03/17 History Metoprolol Tartrate [Lopressor] 100 mg PO BID #120 tab 10/19/16 10/03/17 Rx Furosemide [Lasix] 40 mg PO BID 12/07/16 10/03/17 History Insulin Lispro [humaLOG Kwikpen] See Protocol SQ ACHS 12/07/16 10/03/17 History Ipratropium-Albuterol Nebulize 3 ml INHALATION RT-Q6H PRN #120 12/07/16 Rx [Duoneb 0.5 mg-3 mg/3 ml Soln] ampul.neb Losartan [Cozaar] 50 mg PO DAILY 12/07/16 10/03/17 History amLODIPine [Norvasc] 10 mg PO DAILY 12/07/16 10/03/17 History Budesonide-Formot 160-4.5 Mcg 2 puff INHALATION RT-BID PRN 05/23/17 10/03/17 History [Symbicort 160-4.5 Mcg Inhaler] Atorvastatin [Lipitor] 80 mg PO HS 09/21/17 10/03/17 History Insulin Glargine,Hum.rec.anlog 23 unit SQ HS 09/21/17 10/03/17 History [Lantus Solostar] Allergies Allergy/AdvReac Type Severity Reaction Status Date / Time No Known Allergies Allergy Verified 10/03/17 14:45 Physical Exam Vitals: Vital Signs Temp Pulse Pulse Resp BP BP Pulse Ox 10/04/17 14:58 97.1 F L 69 18 91/60 94 L 10/04/17 12:16 76 10/04/17 12:04 76 10/04/17 08:50 76 10/04/17 08:34 76 10/04/17 08:00 87 16 10/04/17 07:00 97.0 F L 87 16 134/98 95 10/03/17 23:00 97.2 F L 68 18 118/71 92 L 10/03/17 18:29 97.6 F 71 18 155/96 95 10/03/17 17:51 99.7 F H 79 16 141/96 97 10/03/17 17:18 91 16 143/92 99 10/03/17 16:13 73 10/03/17 16:00 80 10/03/17 15:31 73 16 114/70 95 10/03/17 15:29 74 Intake and Output 10/04/17 10/04/17 10/04/17 06:59 14:59 22:59 Intake Total 90.481 Output Total 350 Balance -259.519 Intake: Intake, IV Titration 90.481 Amount Insulin Regular 100 unit 90.481 In Sodium Chloride 0.9% 100 ml @ Titrate IV .Q0M [facility] Rx#:[id number] Output: Urine 350 Other: # Voids 1 3 Weight 113.398 kg Patient Weight 10/05/17 06:59 Weight 113.398 kg GENERAL EXAM: Alert, pleasant, 72-year-old white male in no apparent distress. HEAD: Normocephalic/atraumatic. EYES: Normal reaction of pupils, equal size. Conjunctiva pink, sclera white. NOSE: Clear with pink turbinates. THROAT: No erythema or exudates. NECK: No masses, no JVD, no thyroid enlargement, no adenopathy. CHEST: No chest wall deformity. Symmetrical expansion. LUNGS: Equal air entry with diffuse wheezes throughout, and publication of the expiratory phase CVS: Regular rate and rhythm, normal S1 and S2, no gallops, no murmurs, no rubs ABDOMEN: Soft, nontender. No hepatosplenomegaly, normal bowel sounds, no guarding or rigidity. EXTREMITIES: No clubbing, no edema, no cyanosis, 2+ pulses and upper and lower extremities. MUSCULOSKELETAL: Muscle strength and tone normal. SPINE: No scoliosis or deformity SKIN: No rashes CENTRAL NERVOUS SYSTEM: Alert and oriented -3. No focal deficits, tone is normal in all 4 extremities. PSYCHIATRIC: Alert and oriented -3. Appropriate affect. Intact judgment and insight. Results - Laboratory Findings CBC and BMP: 10/03/17 14:42 10/03/17 14:42 PT/INR, D-dimer PT 10.3 sec (9.0-12.0) 10/03/17 14:42 INR 1.0 (<1.2) 10/03/17 14:42 Abnormal lab findings: Abnormal Labs 10/03/17 10/03/17 10/03/17 14:42 14:42 14:42 RDW 15.9 H Lymphocytes # 0.8 L BUN 38 H Creatinine 1.48 H Glucose 304 H POC Glucose (mg/dL) Hemoglobin A1c 12.1 H Total Bilirubin 2.5 H Urine Protein Urine Glucose (UA) Hyaline Casts Urine Mucus 10/03/17 10/03/17 10/03/17 14:42 14:48 18:32 RDW Lymphocytes # BUN Creatinine Glucose POC Glucose (mg/dL) 307 H 333 H Hemoglobin A1c Total Bilirubin Urine Protein 1+ H Urine Glucose (UA) 4+ H Hyaline Casts 7 H Urine Mucus Rare H 10/03/17 10/04/17 10/04/17 21:05 06:01 07:04 RDW Lymphocytes # BUN Creatinine Glucose POC Glucose (mg/dL) 396 H 428 H 394 H Hemoglobin A1c Total Bilirubin Urine Protein Urine Glucose (UA) Hyaline Casts Urine Mucus 10/04/17 10/04/17 10/04/17 07:46 08:16 08:45 RDW Lymphocytes # BUN Creatinine Glucose POC Glucose (mg/dL) 370 H 348 H 378 H Hemoglobin A1c Total Bilirubin Urine Protein Urine Glucose (UA) Hyaline Casts Urine Mucus 10/04/17 10/04/17 10/04/17 09:15 09:47 10:16 RDW Lymphocytes # BUN Creatinine Glucose POC Glucose (mg/dL) 383 H 382 H 288 H Hemoglobin A1c Total Bilirubin Urine Protein Urine Glucose (UA) Hyaline Casts Urine Mucus 10/04/17 10/04/17 10/04/17 10:52 11:22 11:50 RDW Lymphocytes # BUN Creatinine Glucose POC Glucose (mg/dL) 276 H 213 H 159 H Hemoglobin A1c Total Bilirubin Urine Protein Urine Glucose (UA) Hyaline Casts Urine Mucus - Diagnostic Findings Chest x-ray: report reviewed Assessment and Plan Plan: Assessment: #1. Acute exacerbation of COPD with tracheobronchitis #2. History of recent hospitalization for a COPD exacerbation, discharged on #3. History of mild COPD, with baseline FEV1 of 81% of predicted #4. Obstructive sleep apnea, on BiPAP therapy at a pressure of 20/15 #4. Diabetes mellitus, with evidence of steroid-induced hyperglycemia #5. Coronary artery disease #6. Hypertension #7. Obesity #8. Chronic renal failure Plan: Continue with current medical treatment, continue IV Solu-Medrol, Levaquin, DuoNeb, Pulmicort. Will add Perforomist. I performed a history & physical examination of the patient and discussed their management with my nurse practitioner, Suki Delarosa. I reviewed the nurse practitioner's note and agree with the documented findings and plan of care. Lung sounds are positive for diffuse wheezes throughout the lung quinonez. The findings and the impression was discussed with the patient. I attest to the documentation by the nurse practitioner. Time with Patient: Greater than 30
[2017-10-04 17:23] LABS: Glucose,Whole Blood 533 mg/dL (75-99)
[2017-10-04 17:23] LABS: Glucose,Whole Blood 556 mg/dL (75-99)
[2017-10-04] MEDS ORDERED: INSULIN ASPART 100 UNIT/ML 1 ML 10 ML VIAL SQ ONE (17:35)
[2017-10-04 18:45] LABS: Hemoglobin A1C 12.1 % (4.0-6.0)
[2017-10-04 19:42] LABS: Glucose,Whole Blood 582 mg/dL (75-99)
[2017-10-04 19:42] LABS: Glucose,Whole Blood 595 mg/dL (75-99)
[2017-10-04] MEDS ORDERED: DEXTROSE 5%-0.45% NACL 1,000 ML IV SCH (20:00)
[2017-10-04] MEDS: FORMOTEROL FUMARATE 20 MCG/2 ML NEBU INHALATION SCH (20:09)
[2017-10-04] MEDS: BUDESONIDE 1 MG/2 ML NEBU INHALATION SCH (20:09)
[2017-10-04 20:30] LABS: Glucose,Whole Blood >600 mg/dL (75-99)
[2017-10-04 20:31] LABS: Glucose,Whole Blood >600 mg/dL (75-99)
[2017-10-04] MEDS ORDERED: INSULIN DETEMIR 100 UNIT/ML 10 ML VIAL SQ SCH (21:00)
[2017-10-04 21:05] LABS: Glucose,Whole Blood >600 mg/dL (75-99)
[2017-10-04 21:33] LABS: Glucose,Whole Blood 551 mg/dL (75-99)
[2017-10-04] MEDS: ATORVASTATIN 80 MG TAB PO SCH (21:59)
[2017-10-04 22:06] LABS: Glucose,Whole Blood 509 mg/dL (75-99)
[2017-10-04 22:47] LABS: Glucose,Whole Blood 479 mg/dL (75-99)
[2017-10-04 23:14] LABS: Glucose,Whole Blood 455 mg/dL (75-99)
[2017-10-04 23:41] LABS: Glucose,Whole Blood 428 mg/dL (75-99)
[2017-10-05 00:19] LABS: Glucose,Whole Blood 315 mg/dL (75-99)
[2017-10-05] MEDS: INSULIN REGULAR 100 UNIT in SODIUM CHLORIDE 0.9% 100 ML IV SCH ×2 (00:30→12:25)
[2017-10-05 00:44] LABS: Glucose,Whole Blood 317 mg/dL (75-99)
[2017-10-05] MEDS: methylPREDNISolone SOD SUCCI 125 MG/2 ML VIAL IV SCH ×3 (01:10→11:17)
[2017-10-05 01:13] LABS: Glucose,Whole Blood 252 mg/dL (75-99)
[2017-10-05 03:09] LABS: Glucose,Whole Blood 102 mg/dL (75-99)
[2017-10-05 03:35] LABS: Glucose,Whole Blood 94 mg/dL (75-99)
[2017-10-05 04:00] LABS: Glucose,Whole Blood 120 mg/dL (75-99)
[2017-10-05 04:39] LABS: Glucose,Whole Blood 162 mg/dL (75-99)
[2017-10-05 05:57] LABS: Glucose,Whole Blood 196 mg/dL (75-99)
[2017-10-05 07:28] LABS: Glucose,Whole Blood 205 mg/dL (75-99)
[2017-10-05] MEDS: BUDESONIDE 1 MG/2 ML NEBU INHALATION SCH ×2 (07:32→20:18)
[2017-10-05] MEDS: IPRATROPIUM-ALBUTEROL 3 ML NEB INHALATION PRN ×4 (07:32→20:18)
[2017-10-05] MEDS: FORMOTEROL FUMARATE 20 MCG/2 ML NEBU INHALATION SCH ×2 (07:32→20:18)
[2017-10-05 07:55] LABS: Basophils % (A) 0 %; Eosinophils % (A) 0 %; HCT 35.9 % (39.0-53.0); HGB 12.1 gm/dL (13.0-17.5); Lymphocytes # (A) 0.4 k/uL (1.0-4.8); Lymphocytes % (A) 3 %; MCH 30.6 pg (25.0-35.0); MCHC 33.8 g/dL (31.0-37.0); MCV 90.4 fL (80.0-100.0); Mean Platelet Volume 6.6; Monocytes # (A) 0.3 k/uL (0-1.0); Monocytes % (A) 3 %; Neutrophils # (A) 12.3 k/uL (1.3-7.7); Neutrophils % (A) 94 %; Platelet Count 249 k/uL (150-450); RBC 3.97 m/uL (4.30-5.90); RDW 14.9 % (11.5-15.5); WBC 13.1 k/uL (3.8-10.6)
[2017-10-05] MEDS: PANTOPRAZOLE 40 MG TABLET PO SCH (07:59)
[2017-10-05] MEDS: METOPROLOL TARTRATE 50 MG TAB PO SCH ×3 (07:59→22:06)
[2017-10-05] MEDS: ENOXAPARIN 40 MG/0.4 ML SYRINGE SQ SCH (07:59)
[2017-10-05] MEDS: FUROSEMIDE 40 MG TAB PO SCH ×2 (08:00→15:59)
[2017-10-05] MEDS: amLODIPine 10 MG TAB PO SCH (08:00)
[2017-10-05] MEDS: LEVOFLOXACIN 500 MG TAB PO SCH (08:00)
[2017-10-05] MEDS: ASPIRIN 81 MG PO SCH (08:00)
[2017-10-05] MEDS: LOSARTAN 50 MG TAB PO SCH (08:01)
[2017-10-05 08:34] LABS: Albumin 3.7 g/dL (3.5-5.0); Calcium 8.6 mg/dL (8.4-10.2)
[2017-10-05 08:38] LABS: Magnesium 2.1 mg/dL (1.6-2.3)
[2017-10-05 10:22] LABS: Glucose,Whole Blood 365 mg/dL (75-99)
[2017-10-05] MEDS ORDERED: BISACODYL 5 MG TABLET.DR PO STA (11:56)
[2017-10-05] MEDS ORDERED: MAGNESIUM HYDROXIDE 2,400 MG/10 ML CUP PO PRN (11:56)
[2017-10-05] MEDS ORDERED: SODIUM CHLORIDE 0.9% 1,000 ML IV SCH (12:00)
[2017-10-05] MEDS: SENNOSIDES-DOCUSATE SODIUM 1 EACH TAB PO SCH ×3 (12:25→22:07)
[2017-10-05 12:31] LABS: Glucose,Whole Blood 227 mg/dL (75-99)
--- NOTE | 2017-10-05 12:33 | P.PN ---
Subjective Progress Note Date: 10/05/17 This is a 72-year-old male one of Dr. Isbell with a previous medical history significant for on CAD, diabetes mellitus type 2, hypertension and hypertensive cardiovascular disease, history of sleep apnea on CPAP, history of COPD, patient was recently hospitalized at [facility] 2017 after he was admitted for acute exacerbation of COPD he was in the hospital for few days and he was sent home patient has been complaining of increased respiratory distress last few days, and the patient ended up coming to the ER for evaluation he went to see Dr. Isbell and he sent him to the ER for evaluation on patient was found to have a COPD exacerbation, he was admitted to the hospital was placed on Solu-Medrol 60 minute gram IV push every 6 hours as well as insulin drip and subsequently was taken off his insulin drip because of his blood glucose level dropped to 150 mg deciliter and he was placed on Lantus 23 units at bedtime along with a Humalog per sliding scale. 10/05: Patient states he continues to have shortness of breath and cough that is nonproductive. Abdomen is large and he states he is passing gas but no bowel movement. Stool softener and laxative added. Blood sugars were greater than 600 last evening and patient was started on insulin drip. IV fluids will be switched over to 0.9 normal saline and Solu-Medrol will be decreased to 40 mg IV every 8 hours. Creatinine noted to be 2. Objective - Vital Signs Vital signs: Vital Signs Temp 96.8 F L 10/05/17 07:00 Pulse 80 10/05/17 08:03 Resp 20 10/05/17 07:00 BP 117/73 10/05/17 07:00 Pulse Ox 96 10/05/17 07:00 Intake & Output 10/04/17 10/05/17 10/05/17 18:59 06:59 18:59 Intake Total 90.481 134.283 7.2 Output Total 350 Balance -259.519 134.283 7.2 Weight 113.398 kg 111 kg Intake: Intake, IV Titration 90.481 134.283 7.2 Amount Insulin Regular 100 unit 90.481 In Sodium Chloride 0.9% 100 ml @ Titrate IV .Q0M [facility] Rx#:[id number] Insulin Regular 100 unit 134.283 7.2 In Sodium Chloride 0.9% 100 ml @ Titrate IV .Q0M [facility] Rx#:[id number] Output: Urine 350 Other: # Voids 3 1 - Exam General appearance: mild distress, obese - EENT Eyes: anicteric sclerae, EOMI, PERRLA, no ptosis, normal appearance ENT: hearing grossly normal, NA/AT, normal oropharynx, no thrush Ears: bilateral: normal - Neck Neck: no lymphadenopathy, normal ROM, no rigidity, no stridor, no thyromegaly Carotids: bilateral: upstroke normal Thyroid: bilateral: normal size - Respiratory Respiratory: bilateral: diminished, rhonchi, wheezing, prolonged expiration, negative: dullness, rales - Cardiovascular Rhythm: regular Heart sounds: normal: S1, S2 Abnormal Heart Sounds: no S3 Gallop, no S4 Gallop, no click - Gastrointestinal General gastrointestinal: normal bowel sounds, soft, no splenomegaly, no tenderness - Genitourinary Male genitourinary: enlarged prostate - Integumentary Integumentary: normal, normal turgor - Neurologic Neurologic: CNII-XII intact - Musculoskeletal Musculoskeletal: strength equal bilaterally - Psychiatric Psychiatric: A&O x's 3, appropriate affect, intact judgment & insight - Labs CBC & Chem 7: 10/05/17 07:22 10/05/17 07:22 Labs: Abnormal Lab Results - Last 24 Hours (Table) 10/04/17 10/04/17 10/04/17 Range/Units 07:37 09:47 10:16 WBC (3.8-10.6) k/uL RBC (4.30-5.90) m/uL Hgb (13.0-17.5) gm/dL Hct (39.0-53.0) % Neutrophils # (1.3-7.7) k/uL Lymphocytes # (1.0-4.8) k/uL Sodium (137-145) mmol/L Chloride (98-107) mmol/L Carbon Dioxide (22-30) mmol/L BUN (9-20) mg/dL Creatinine (0.66-1.25) mg/dL Glucose (74-99) mg/dL POC Glucose (mg/dL) 382 H 288 H (75-99) mg/dL Hemoglobin A1c 12.1 H (4.0-6.0) % Total Bilirubin (0.2-1.3) mg/dL Total Protein (6.3-8.2) g/dL 10/04/17 10/04/17 10/04/17 Range/Units 10:52 11:22 11:50 WBC (3.8-10.6) k/uL RBC (4.30-5.90) m/uL Hgb (13.0-17.5) gm/dL Hct (39.0-53.0) % Neutrophils # (1.3-7.7) k/uL Lymphocytes # (1.0-4.8) k/uL Sodium (137-145) mmol/L Chloride (98-107) mmol/L Carbon Dioxide (22-30) mmol/L BUN (9-20) mg/dL Creatinine (0.66-1.25) mg/dL Glucose (74-99) mg/dL POC Glucose (mg/dL) 276 H 213 H 159 H (75-99) mg/dL Hemoglobin A1c (4.0-6.0) % Total Bilirubin (0.2-1.3) mg/dL Total Protein (6.3-8.2) g/dL 10/04/17 10/04/17 10/04/17 Range/Units 17:19 17:20 19:28 WBC (3.8-10.6) k/uL RBC (4.30-5.90) m/uL Hgb (13.0-17.5) gm/dL Hct (39.0-53.0) % Neutrophils # (1.3-7.7) k/uL Lymphocytes # (1.0-4.8) k/uL Sodium (137-145) mmol/L Chloride (98-107) mmol/L Carbon Dioxide (22-30) mmol/L BUN (9-20) mg/dL Creatinine (0.66-1.25) mg/dL Glucose (74-99) mg/dL POC Glucose (mg/dL) 556 H 533 H 582 H (75-99) mg/dL Hemoglobin A1c (4.0-6.0) % Total Bilirubin (0.2-1.3) mg/dL Total Protein (6.3-8.2) g/dL 10/04/17 10/04/17 10/04/17 Range/Units 19:30 20:28 20:30 WBC (3.8-10.6) k/uL RBC (4.30-5.90) m/uL Hgb (13.0-17.5) gm/dL Hct (39.0-53.0) % Neutrophils # (1.3-7.7) k/uL Lymphocytes # (1.0-4.8) k/uL Sodium (137-145) mmol/L Chloride (98-107) mmol/L Carbon Dioxide (22-30) mmol/L BUN (9-20) mg/dL Creatinine (0.66-1.25) mg/dL Glucose (74-99) mg/dL POC Glucose (mg/dL) 595 H >600 H >600 H (75-99) mg/dL Hemoglobin A1c (4.0-6.0) % Total Bilirubin (0.2-1.3) mg/dL Total Protein (6.3-8.2) g/dL 10/04/17 10/04/17 10/04/17 Range/Units 21:03 21:31 22:04 WBC (3.8-10.6) k/uL RBC (4.30-5.90) m/uL Hgb (13.0-17.5) gm/dL Hct (39.0-53.0) % Neutrophils # (1.3-7.7) k/uL Lymphocytes # (1.0-4.8) k/uL Sodium (137-145) mmol/L Chloride (98-107) mmol/L Carbon Dioxide (22-30) mmol/L BUN (9-20) mg/dL Creatinine (0.66-1.25) mg/dL Glucose (74-99) mg/dL POC Glucose (mg/dL) >600 H 551 H 509 H (75-99) mg/dL Hemoglobin A1c (4.0-6.0) % Total Bilirubin (0.2-1.3) mg/dL Total Protein (6.3-8.2) g/dL 10/04/17 10/04/17 10/04/17 Range/Units 22:45 23:13 23:29 WBC (3.8-10.6) k/uL RBC (4.30-5.90) m/uL Hgb (13.0-17.5) gm/dL Hct (39.0-53.0) % Neutrophils # (1.3-7.7) k/uL Lymphocytes # (1.0-4.8) k/uL Sodium (137-145) mmol/L Chloride (98-107) mmol/L Carbon Dioxide (22-30) mmol/L BUN (9-20) mg/dL Creatinine (0.66-1.25) mg/dL Glucose (74-99) mg/dL POC Glucose (mg/dL) 479 H 455 H 428 H (75-99) mg/dL Hemoglobin A1c (4.0-6.0) % Total Bilirubin (0.2-1.3) mg/dL Total Protein (6.3-8.2) g/dL 10/05/17 10/05/17 10/05/17 Range/Units 00:04 00:32 01:00 WBC (3.8-10.6) k/uL RBC (4.30-5.90) m/uL Hgb (13.0-17.5) gm/dL Hct (39.0-53.0) % Neutrophils # (1.3-7.7) k/uL Lymphocytes # (1.0-4.8) k/uL Sodium (137-145) mmol/L Chloride (98-107) mmol/L Carbon Dioxide (22-30) mmol/L BUN (9-20) mg/dL Creatinine (0.66-1.25) mg/dL Glucose (74-99) mg/dL POC Glucose (mg/dL) 315 H 317 H 252 H (75-99) mg/dL Hemoglobin A1c (4.0-6.0) % Total Bilirubin (0.2-1.3) mg/dL Total Protein (6.3-8.2) g/dL 10/05/17 10/05/17 10/05/17 Range/Units 03:08 03:59 04:37 WBC (3.8-10.6) k/uL RBC (4.30-5.90) m/uL Hgb (13.0-17.5) gm/dL Hct (39.0-53.0) % Neutrophils # (1.3-7.7) k/uL Lymphocytes # (1.0-4.8) k/uL Sodium (137-145) mmol/L Chloride (98-107) mmol/L Carbon Dioxide (22-30) mmol/L BUN (9-20) mg/dL Creatinine (0.66-1.25) mg/dL Glucose (74-99) mg/dL POC Glucose (mg/dL) 102 H 120 H 162 H (75-99) mg/dL Hemoglobin A1c (4.0-6.0) % Total Bilirubin (0.2-1.3) mg/dL Total Protein (6.3-8.2) g/dL 10/05/17 10/05/17 10/05/17 Range/Units 05:56 07:21 07:22 WBC 13.1 H (3.8-10.6) k/uL RBC 3.97 L (4.30-5.90) m/uL Hgb 12.1 L (13.0-17.5) gm/dL Hct 35.9 L (39.0-53.0) % Neutrophils # 12.3 H (1.3-7.7) k/uL Lymphocytes # 0.4 L (1.0-4.8) k/uL Sodium (137-145) mmol/L Chloride (98-107) mmol/L Carbon Dioxide (22-30) mmol/L BUN (9-20) mg/dL Creatinine (0.66-1.25) mg/dL Glucose (74-99) mg/dL POC Glucose (mg/dL) 196 H 205 H (75-99) mg/dL Hemoglobin A1c (4.0-6.0) % Total Bilirubin (0.2-1.3) mg/dL Total Protein (6.3-8.2) g/dL 10/05/17 Range/Units 07:22 WBC (3.8-10.6) k/uL RBC (4.30-5.90) m/uL Hgb (13.0-17.5) gm/dL Hct (39.0-53.0) % Neutrophils # (1.3-7.7) k/uL Lymphocytes # (1.0-4.8) k/uL Sodium 132 L (137-145) mmol/L Chloride 94 L (98-107) mmol/L Carbon Dioxide 21 L (22-30) mmol/L BUN 73 H (9-20) mg/dL Creatinine 2.02 H (0.66-1.25) mg/dL Glucose 159 H (74-99) mg/dL POC Glucose (mg/dL) (75-99) mg/dL Hemoglobin A1c (4.0-6.0) % Total Bilirubin 2.0 H (0.2-1.3) mg/dL Total Protein 6.0 L (6.3-8.2) g/dL Microbiology - Last 24 Hours (Table) 10/03/17 14:45 Blood Culture - Preliminary Blood No Growth after 24 hours 10/03/17 14:42 Urine Culture - Preliminary Urine,Voided Assessment and Plan Plan: 1. Acute hypoxemic respiratory failure due to acute exacerbation of COPD. Solu -Medrol 40 mg IV push every 8 hours, DuoNeb 3 mg nebulization 4 times every day , Pulmicort 4 mg nebulization twice every day, start the patient on Levaquin 500 mg orally once every day, pulmonary consultation. 2. Diabetes mellitus type 2 with steroid-induced hyperglycemia. Iinsulin drip has been resumed. Continue consistent carbohydrate diet. 3. Acute bronchitis. Continue Levaquin 500 mg orally once every day. 4. CAD post MS. Continue aspirin 81 mg orally once every day and metoprolol 100 mg orally twice every day along with Lipitor 80 mg orally once every day. 5. Hypertension and hypertensive cardiovascular disease. Continue patient on losartan 50 mg orally once every day as well as metoprolol 100 mg orally twice every day along with amlodipine 5 mg orally once every day. 6. Hyperlipidemia. Continue Lipitor 80 mg orally once every day. 7. Obesity with obstructive sleep apnea. Continue with CPAP. 8. DVT prophylaxis. Continue Lovenox 40 mg subcutaneously every 24 hours. 9. GI Prophylaxis. Protonix 40 mg orally once every day. 10. Admitted to inpatient. Estimate a length of stay 2 midnights. 11. Patient is a full code. Discharge plan: Return home Impression and plan of care have been directed as dictated by the signing physician. Lay Elizabeth nurse practitioner acting as scribe for signing physician.
[2017-10-05 14:13] LABS: Glucose,Whole Blood 189 mg/dL (75-99)
--- NOTE | 2017-10-05 14:27 | P.PN ---
Subjective Progress Note Date: 10/05/17 Principal diagnosis: Acute exacerbation of COPD with tracheobronchitis Salvador is a 72-year-old white male patient that sees Dr. Delacruz in our office for his for his mild COPD, with baseline FEV1 of 81% of predicted, who presented to the hospital on 10/03/2017 at 1440 With complaints of increasing shortness of breath, cough with sputum production. He was recently hospitalized for COPD exacerbation, and discharged on 09/23/2017 after improving significantly. Patient also has history of obstructive sleep apnea, on BiPAP therapy at a pressure of 20/15, hypertension, hyperlipidemia, atherosclerotic heart disease, obesity, diabetes mellitus, chronic renal failure , diastolic congestive heart failure. Chest x-ray from 10/03/2017 shows no evidence for acute pulmonary disease. Patient was afebrile, with no evidence of hypoxia. Currently on room air with O2 sat at 94%. Lab work shows no evidence of leukocytosis, WBC is within normal limits at 8.3, hemoglobin is 13.5 no electrolyte abnormality, BUN of 38, and creatinine of 1.48. There is evidence of hyperglycemia, his blood sugars were in the 300s on admission. Hemoglobin A1c was 12.1. Serum acetone was negative, influenza screen was negative, urinalysis showed 1+ urine protein and 4+ glucose. Clinically patient is significantly wheezy and tight, with prolongation of the expiratory phase. He was started on a combination of Pulmicort, DuoNeb, IV Solu-Medrol, oral Levaquin and admitted for further management. On 10/05/2017 patient is seen in follow-up on medical surgical floor. Remains significantly wheezy, still has persistent cough. Afebrile, hemodynamically stable. On room air with O2 sat at 96-99%. Today's lab work shows WBC of 13.1 , hemoglobin of 12.1, sodium is 132, BUN is up to 73, and creatinine is 2.02. Patient developed significant hyperglycemia, last night his blood sugars were in the 600s. Insulin drip was started per attending physician. Patient remains on insulin drip today, currently infusing at 7.5 units per hour. IV maintenance fluids as 0.9 normal saline at 20 ML per hour. Steroids have been reduced to 40 mg every 8 hours per attending physician. Continue with the rest of the medical treatments. Not ready for discharge yet. Objective - Vital Signs Vital signs: Vital Signs Temp 96.8 F L 10/05/17 07:00 Pulse 88 10/05/17 11:26 Resp 20 10/05/17 07:00 BP 117/73 10/05/17 07:00 Pulse Ox 96 10/05/17 07:00 Intake & Output 10/04/17 10/05/17 10/05/17 18:59 06:59 18:59 Intake Total 90.481 134.283 70.496 Output Total 350 Balance -259.519 134.283 70.496 Weight 113.398 kg 111 kg Intake: Intake, IV Titration 90.481 134.283 70.496 Amount Insulin Regular 100 unit 90.481 In Sodium Chloride 0.9% 100 ml @ Titrate IV .Q0M [facility] Rx#:[id number] Insulin Regular 100 unit 134.283 70.496 In Sodium Chloride 0.9% 100 ml @ Titrate IV .Q0M [facility] Rx#:[id number] Output: Urine 350 Other: # Voids 3 1 - Exam GENERAL EXAM: Alert, pleasant, 72-year-old white male in no apparent distress. HEAD: Normocephalic/atraumatic. EYES: Normal reaction of pupils, equal size. Conjunctiva pink, sclera white. NOSE: Clear with pink turbinates. THROAT: No erythema or exudates. NECK: No masses, no JVD, no thyroid enlargement, no adenopathy. CHEST: No chest wall deformity. Symmetrical expansion. LUNGS: Equal air entry with diffuse wheezes throughout, and prolongation of the expiratory phase CVS: Regular rate and rhythm, normal S1 and S2, no gallops, no murmurs, no rubs ABDOMEN: Soft, nontender. No hepatosplenomegaly, normal bowel sounds, no guarding or rigidity. EXTREMITIES: No clubbing, no edema, no cyanosis, 2+ pulses and upper and lower extremities. MUSCULOSKELETAL: Muscle strength and tone normal. SPINE: No scoliosis or deformity SKIN: No rashes CENTRAL NERVOUS SYSTEM: Alert and oriented -3. No focal deficits, tone is normal in all 4 extremities. PSYCHIATRIC: Alert and oriented -3. Appropriate affect. Intact judgment and insight. - Labs CBC & Chem 7: 10/05/17 07:22 10/05/17 07:22 Labs: Abnormal Lab Results - Last 24 Hours (Table) 10/04/17 10/04/17 10/04/17 Range/Units 07:37 17:19 17:20 WBC (3.8-10.6) k/uL RBC (4.30-5.90) m/uL Hgb (13.0-17.5) gm/dL Hct (39.0-53.0) % Neutrophils # (1.3-7.7) k/uL Lymphocytes # (1.0-4.8) k/uL Sodium (137-145) mmol/L Chloride (98-107) mmol/L Carbon Dioxide (22-30) mmol/L BUN (9-20) mg/dL Creatinine (0.66-1.25) mg/dL Glucose (74-99) mg/dL POC Glucose (mg/dL) 556 H 533 H (75-99) mg/dL Hemoglobin A1c 12.1 H (4.0-6.0) % Total Bilirubin (0.2-1.3) mg/dL Total Protein (6.3-8.2) g/dL 10/04/17 10/04/17 10/04/17 Range/Units 19:28 19:30 20:28 WBC (3.8-10.6) k/uL RBC (4.30-5.90) m/uL Hgb (13.0-17.5) gm/dL Hct (39.0-53.0) % Neutrophils # (1.3-7.7) k/uL Lymphocytes # (1.0-4.8) k/uL Sodium (137-145) mmol/L Chloride (98-107) mmol/L Carbon Dioxide (22-30) mmol/L BUN (9-20) mg/dL Creatinine (0.66-1.25) mg/dL Glucose (74-99) mg/dL POC Glucose (mg/dL) 582 H 595 H >600 H (75-99) mg/dL Hemoglobin A1c (4.0-6.0) % Total Bilirubin (0.2-1.3) mg/dL Total Protein (6.3-8.2) g/dL 10/04/17 10/04/17 10/04/17 Range/Units 20:30 21:03 21:31 WBC (3.8-10.6) k/uL RBC (4.30-5.90) m/uL Hgb (13.0-17.5) gm/dL Hct (39.0-53.0) % Neutrophils # (1.3-7.7) k/uL Lymphocytes # (1.0-4.8) k/uL Sodium (137-145) mmol/L Chloride (98-107) mmol/L Carbon Dioxide (22-30) mmol/L BUN (9-20) mg/dL Creatinine (0.66-1.25) mg/dL Glucose (74-99) mg/dL POC Glucose (mg/dL) >600 H >600 H 551 H (75-99) mg/dL Hemoglobin A1c (4.0-6.0) % Total Bilirubin (0.2-1.3) mg/dL Total Protein (6.3-8.2) g/dL 10/04/17 10/04/17 10/04/17 Range/Units 22:04 22:45 23:13 WBC (3.8-10.6) k/uL RBC (4.30-5.90) m/uL Hgb (13.0-17.5) gm/dL Hct (39.0-53.0) % Neutrophils # (1.3-7.7) k/uL Lymphocytes # (1.0-4.8) k/uL Sodium (137-145) mmol/L Chloride (98-107) mmol/L Carbon Dioxide (22-30) mmol/L BUN (9-20) mg/dL Creatinine (0.66-1.25) mg/dL Glucose (74-99) mg/dL POC Glucose (mg/dL) 509 H 479 H 455 H (75-99) mg/dL Hemoglobin A1c (4.0-6.0) % Total Bilirubin (0.2-1.3) mg/dL Total Protein (6.3-8.2) g/dL 10/04/17 10/05/17 10/05/17 Range/Units 23:29 00:04 00:32 WBC (3.8-10.6) k/uL RBC (4.30-5.90) m/uL Hgb (13.0-17.5) gm/dL Hct (39.0-53.0) % Neutrophils # (1.3-7.7) k/uL Lymphocytes # (1.0-4.8) k/uL Sodium (137-145) mmol/L Chloride (98-107) mmol/L Carbon Dioxide (22-30) mmol/L BUN (9-20) mg/dL Creatinine (0.66-1.25) mg/dL Glucose (74-99) mg/dL POC Glucose (mg/dL) 428 H 315 H 317 H (75-99) mg/dL Hemoglobin A1c (4.0-6.0) % Total Bilirubin (0.2-1.3) mg/dL Total Protein (6.3-8.2) g/dL 10/05/17 10/05/17 10/05/17 Range/Units 01:00 03:08 03:59 WBC (3.8-10.6) k/uL RBC (4.30-5.90) m/uL Hgb (13.0-17.5) gm/dL Hct (39.0-53.0) % Neutrophils # (1.3-7.7) k/uL Lymphocytes # (1.0-4.8) k/uL Sodium (137-145) mmol/L Chloride (98-107) mmol/L Carbon Dioxide (22-30) mmol/L BUN (9-20) mg/dL Creatinine (0.66-1.25) mg/dL Glucose (74-99) mg/dL POC Glucose (mg/dL) 252 H 102 H 120 H (75-99) mg/dL Hemoglobin A1c (4.0-6.0) % Total Bilirubin (0.2-1.3) mg/dL Total Protein (6.3-8.2) g/dL 10/05/17 10/05/17 10/05/17 Range/Units 04:37 05:56 07:21 WBC (3.8-10.6) k/uL RBC (4.30-5.90) m/uL Hgb (13.0-17.5) gm/dL Hct (39.0-53.0) % Neutrophils # (1.3-7.7) k/uL Lymphocytes # (1.0-4.8) k/uL Sodium (137-145) mmol/L Chloride (98-107) mmol/L Carbon Dioxide (22-30) mmol/L BUN (9-20) mg/dL Creatinine (0.66-1.25) mg/dL Glucose (74-99) mg/dL POC Glucose (mg/dL) 162 H 196 H 205 H (75-99) mg/dL Hemoglobin A1c (4.0-6.0) % Total Bilirubin (0.2-1.3) mg/dL Total Protein (6.3-8.2) g/dL 10/05/17 10/05/17 10/05/17 Range/Units 07:22 07:22 10:01 WBC 13.1 H (3.8-10.6) k/uL RBC 3.97 L (4.30-5.90) m/uL Hgb 12.1 L (13.0-17.5) gm/dL Hct 35.9 L (39.0-53.0) % Neutrophils # 12.3 H (1.3-7.7) k/uL Lymphocytes # 0.4 L (1.0-4.8) k/uL Sodium 132 L (137-145) mmol/L Chloride 94 L (98-107) mmol/L Carbon Dioxide 21 L (22-30) mmol/L BUN 73 H (9-20) mg/dL Creatinine 2.02 H (0.66-1.25) mg/dL Glucose 159 H (74-99) mg/dL POC Glucose (mg/dL) 365 H (75-99) mg/dL Hemoglobin A1c (4.0-6.0) % Total Bilirubin 2.0 H (0.2-1.3) mg/dL Total Protein 6.0 L (6.3-8.2) g/dL 10/05/17 10/05/17 Range/Units 12:00 14:11 WBC (3.8-10.6) k/uL RBC (4.30-5.90) m/uL Hgb (13.0-17.5) gm/dL Hct (39.0-53.0) % Neutrophils # (1.3-7.7) k/uL Lymphocytes # (1.0-4.8) k/uL Sodium (137-145) mmol/L Chloride (98-107) mmol/L Carbon Dioxide (22-30) mmol/L BUN (9-20) mg/dL Creatinine (0.66-1.25) mg/dL Glucose (74-99) mg/dL POC Glucose (mg/dL) 227 H 189 H (75-99) mg/dL Hemoglobin A1c (4.0-6.0) % Total Bilirubin (0.2-1.3) mg/dL Total Protein (6.3-8.2) g/dL Microbiology - Last 24 Hours (Table) 10/03/17 14:45 Blood Culture - Preliminary Blood No Growth after 24 hours 10/03/17 14:42 Urine Culture - Preliminary Urine,Voided Assessment and Plan Plan: Assessment: #1. Acute exacerbation of COPD with tracheobronchitis #2. History of recent hospitalization for a COPD exacerbation, discharged on #3. History of mild COPD, with baseline FEV1 of 81% of predicted #4. Obstructive sleep apnea, on BiPAP therapy at a pressure of 20/15 #4. Diabetes mellitus, with evidence of steroid-induced hyperglycemia #5. Coronary artery disease #6. Hypertension #7. Obesity #8. Acute on chronic renal failure, with a component of prerenal azotemia, and developing anion gap metabolic acidosis due to Solu-Medrol induced hyperglycemia Plan: Patient developed significant hyperglycemia last night, with blood sugars in the 600s. Patient was placed on insulin drip, today his blood sugars are better controlled, currently down to 189. The steroids have been reduced to 40 mg every 8 hours. His oral intake remains good. Continue monitoring his renal profile and electrolytes. Remains very wheezy, with persistent cough. Continue with the rest of the medical treatments. I performed a history & physical examination of the patient and discussed their management with my nurse practitioner, Suki Delarosa. I reviewed the nurse practitioner's note and agree with the documented findings and plan of care. Lung sounds are positive for diffuse wheezes throughout the lung quinonez. The findings and the impression was discussed with the patient. I attest to the documentation by the nurse practitioner. Time with Patient: Less than 30
[2017-10-05] MEDS: methylPREDNISolone SOD SUCCI 40 MG/ML 1 ML VIAL IV SCH (15:59)
[2017-10-05 16:32] LABS: Glucose,Whole Blood 201 mg/dL (75-99)
[2017-10-05 18:04] LABS: Glucose,Whole Blood 202 mg/dL (75-99)
[2017-10-05 20:00] LABS: Glucose,Whole Blood 307 mg/dL (75-99)
[2017-10-05] MEDS: ATORVASTATIN 80 MG TAB PO SCH ×2 (20:05→22:11)
[2017-10-05 22:02] LABS: Glucose,Whole Blood 302 mg/dL (75-99)
[2017-10-06] MEDS: methylPREDNISolone SOD SUCCI 40 MG/ML 1 ML VIAL IV SCH ×3 (00:02→22:07)
[2017-10-06 00:20] LABS: Glucose,Whole Blood 221 mg/dL (75-99)
[2017-10-06] MEDS: INSULIN REGULAR 100 UNIT in SODIUM CHLORIDE 0.9% 100 ML IV SCH ×2 (00:22→22:14)
[2017-10-06 02:19] LABS: Glucose,Whole Blood 121 mg/dL (75-99)
[2017-10-06 03:21] LABS: Glucose,Whole Blood 195 mg/dL (75-99)
[2017-10-06 06:03] LABS: Glucose,Whole Blood 184 mg/dL (75-99)
[2017-10-06] MEDS: BUDESONIDE 1 MG/2 ML NEBU INHALATION SCH ×2 (07:38→20:51)
[2017-10-06] MEDS: IPRATROPIUM-ALBUTEROL 3 ML NEB INHALATION PRN ×4 (07:39→20:51)
[2017-10-06] MEDS: FORMOTEROL FUMARATE 20 MCG/2 ML NEBU INHALATION SCH ×2 (07:39→20:51)
[2017-10-06] MEDS ORDERED: MAGNESIUM HYDROXIDE 2,400 MG/10 ML CUP PO ONE (07:40)
[2017-10-06] MEDS: ENOXAPARIN 40 MG/0.4 ML SYRINGE SQ SCH (07:54)
[2017-10-06] MEDS: amLODIPine 10 MG TAB PO SCH (07:55)
[2017-10-06] MEDS: FUROSEMIDE 40 MG TAB PO SCH (07:55)
[2017-10-06] MEDS: PANTOPRAZOLE 40 MG TABLET PO SCH (07:55)
[2017-10-06] MEDS: ASPIRIN 81 MG PO SCH (07:55)
[2017-10-06] MEDS: METOPROLOL TARTRATE 50 MG TAB PO SCH ×2 (07:56→22:10)
[2017-10-06] MEDS: LEVOFLOXACIN 250 MG TAB PO SCH (07:56)
[2017-10-06] MEDS: SENNOSIDES-DOCUSATE SODIUM 1 EACH TAB PO SCH ×2 (07:56→22:10)
[2017-10-06] MEDS: LOSARTAN 50 MG TAB PO SCH (07:56)
[2017-10-06 08:10] LABS: Glucose,Whole Blood 196 mg/dL (75-99)
[2017-10-06 10:01] LABS: Glucose,Whole Blood 296 mg/dL (75-99)
--- NOTE | 2017-10-06 11:28 | P.PN ---
Subjective Progress Note Date: 10/06/17 Principal diagnosis: Acute exacerbation of COPD with tracheobronchitis Salvador is a 72-year-old white male patient that sees Dr. Delacruz in our office for his for his mild COPD, with baseline FEV1 of 81% of predicted, who presented to the hospital on 10/03/2017 at 1440 With complaints of increasing shortness of breath, cough with sputum production. He was recently hospitalized for COPD exacerbation, and discharged on 09/23/2017 after improving significantly. Patient also has history of obstructive sleep apnea, on BiPAP therapy at a pressure of 20/15, hypertension, hyperlipidemia, atherosclerotic heart disease, obesity, diabetes mellitus, chronic renal failure , diastolic congestive heart failure. Chest x-ray from 10/03/2017 shows no evidence for acute pulmonary disease. Patient was afebrile, with no evidence of hypoxia. Currently on room air with O2 sat at 94%. Lab work shows no evidence of leukocytosis, WBC is within normal limits at 8.3, hemoglobin is 13.5 no electrolyte abnormality, BUN of 38, and creatinine of 1.48. There is evidence of hyperglycemia, his blood sugars were in the 300s on admission. Hemoglobin A1c was 12.1. Serum acetone was negative, influenza screen was negative, urinalysis showed 1+ urine protein and 4+ glucose. Clinically patient is significantly wheezy and tight, with prolongation of the expiratory phase. He was started on a combination of Pulmicort, DuoNeb, IV Solu-Medrol, oral Levaquin and admitted for further management. On 10/05/2017 patient is seen in follow-up on medical surgical floor. Remains significantly wheezy, still has persistent cough. Afebrile, hemodynamically stable. On room air with O2 sat at 96-99%. Today's lab work shows WBC of 13.1 , hemoglobin of 12.1, sodium is 132, BUN is up to 73, and creatinine is 2.02. Patient developed significant hyperglycemia, last night his blood sugars were in the 600s. Insulin drip was started per attending physician. Patient remains on insulin drip today, currently infusing at 7.5 units per hour. IV maintenance fluids as 0.9 normal saline at 20 ML per hour. Steroids have been reduced to 40 mg every 8 hours per attending physician. Continue with the rest of the medical treatments. Not ready for discharge yet. On 10/06/2017 patient seen in follow-up. Remains significantly wheezy, does have Coughing spells in the mornings. On room air, with O2 sat at 94%. Afebrile, vital signs are stable. Still pretty significantly short of breath with exertion. Blood and urine culture show no growth. Continue with current medical treatment, not ready for discharge yet. Objective - Vital Signs Vital signs: Vital Signs Temp 96.4 F L 10/06/17 07:00 Pulse 84 10/06/17 07:54 Resp 18 10/06/17 07:00 BP 119/70 10/06/17 07:00 Pulse Ox 94 L 10/06/17 07:00 Intake & Output 10/05/17 10/06/17 10/06/17 18:59 06:59 18:59 Intake Total 930.045 89.221 16.160 Balance 930.045 89.221 16.160 Weight 111 kg Intake: IV 400 Dextrose 5%-0.45% NaCl 1, 400 000 ml @ 50 mls/hr IV . Q20H [facility] Rx#:[id number] Intake, IV Titration 90.045 89.221 16.160 Amount Insulin Regular 100 unit 90.045 89.221 16.160 In Sodium Chloride 0.9% 100 ml @ Titrate IV .Q0M [facility] Rx#:[id number] Oral 440 Other: Voiding Method Toilet # Voids 1 # Bowel Movements 1 - Exam GENERAL EXAM: Alert, pleasant, 72-year-old white male in no apparent distress. HEAD: Normocephalic/atraumatic. EYES: Normal reaction of pupils, equal size. Conjunctiva pink, sclera white. NOSE: Clear with pink turbinates. THROAT: No erythema or exudates. NECK: No masses, no JVD, no thyroid enlargement, no adenopathy. CHEST: No chest wall deformity. Symmetrical expansion. LUNGS: Equal air entry with diffuse wheezes throughout, and prolongation of the expiratory phase CVS: Regular rate and rhythm, normal S1 and S2, no gallops, no murmurs, no rubs ABDOMEN: Soft, nontender. No hepatosplenomegaly, normal bowel sounds, no guarding or rigidity. EXTREMITIES: No clubbing, no edema, no cyanosis, 2+ pulses and upper and lower extremities. MUSCULOSKELETAL: Muscle strength and tone normal. SPINE: No scoliosis or deformity SKIN: No rashes CENTRAL NERVOUS SYSTEM: Alert and oriented -3. No focal deficits, tone is normal in all 4 extremities. PSYCHIATRIC: Alert and oriented -3. Appropriate affect. Intact judgment and insight. - Labs CBC & Chem 7: 10/05/17 07:22 10/05/17 07:22 Labs: Abnormal Lab Results - Last 24 Hours (Table) 10/05/17 10/05/17 10/05/17 Range/Units 12:00 14:11 16:12 POC Glucose (mg/dL) 227 H 189 H 201 H (75-99) mg/dL 10/05/17 10/05/17 10/05/17 Range/Units 17:57 19:58 22:01 POC Glucose (mg/dL) 202 H 307 H 302 H (75-99) mg/dL 10/06/17 10/06/17 10/06/17 Range/Units 00:18 02:17 03:19 POC Glucose (mg/dL) 221 H 121 H 195 H (75-99) mg/dL 10/06/17 10/06/17 10/06/17 Range/Units 06:01 08:07 09:59 POC Glucose (mg/dL) 184 H 196 H 296 H (75-99) mg/dL Microbiology - Last 24 Hours (Table) 10/03/17 14:45 Blood Culture - Preliminary Blood No Growth after 48 hours 10/03/17 14:42 Urine Culture - Final Urine,Voided Assessment and Plan Plan: Assessment: #1. Acute exacerbation of COPD with tracheobronchitis #2. History of recent hospitalization for a COPD exacerbation, discharged on #3. History of mild COPD, with baseline FEV1 of 81% of predicted #4. Obstructive sleep apnea, on BiPAP therapy at a pressure of 20/15 #4. Diabetes mellitus, with evidence of steroid-induced hyperglycemia #5. Coronary artery disease #6. Hypertension #7. Obesity #8. Acute on chronic renal failure, with a component of prerenal azotemia, and developing anion gap metabolic acidosis due to Solu-Medrol induced hyperglycemia Plan: Patient remains dyspneic, and significantly wheezy. Continue with current medical treatment, continue current dose of IV steroids, empiric antibiotics nebulized treatments. Not ready for discharge. I performed a history & physical examination of the patient and discussed their management with my nurse practitioner, Suki Delarosa. I reviewed the nurse practitioner's note and agree with the documented findings and plan of care. Lung sounds are positive for diffuse wheezes throughout the lung quinonez. The findings and the impression was discussed with the patient. I attest to the documentation by the nurse practitioner. Time with Patient: Less than 30
[2017-10-06 12:17] LABS: Glucose,Whole Blood 130 mg/dL (75-99)
[2017-10-06] MEDS: SODIUM CHLORIDE 0.9% 1,000 ML IV SCH ×2 (12:26→23:11)
[2017-10-06 13:08] LABS: Calcium 8.8 mg/dL (8.4-10.2)
--- NOTE | 2017-10-06 14:05 | P.PN ---
Subjective Progress Note Date: 10/06/17 This is a 72-year-old male one of Dr. Isbell with a previous medical history significant for on CAD, diabetes mellitus type 2, hypertension and hypertensive cardiovascular disease, history of sleep apnea on CPAP, history of COPD, patient was recently hospitalized at [facility] 2017 after he was admitted for acute exacerbation of COPD he was in the hospital for few days and he was sent home patient has been complaining of increased respiratory distress last few days, and the patient ended up coming to the ER for evaluation he went to see Dr. Isbell and he sent him to the ER for evaluation on patient was found to have a COPD exacerbation, he was admitted to the hospital was placed on Solu-Medrol 60 minute gram IV push every 6 hours as well as insulin drip and subsequently was taken off his insulin drip because of his blood glucose level dropped to 150 mg deciliter and he was placed on Lantus 23 units at bedtime along with a Humalog per sliding scale. 10/05: Patient states he continues to have shortness of breath and cough that is nonproductive. Abdomen is large and he states he is passing gas but no bowel movement. Stool softener and laxative added. Blood sugars were greater than 600 last evening and patient was started on insulin drip. IV fluids will be switched over to 0.9 normal saline and Solu-Medrol will be decreased to 40 mg IV every 8 hours. Creatinine noted to be 2. 10/06: Blood sugars are now improving with insulin drip. Renal functioning has increased with the BUN 84 and creatinine 2.5. Lasix discontinued and patient started on IV fluids of 0.9 normal saline at 100 mL per hour. Losartan placed on hold. Lovenox decreased to 30. Patient states he had a small bowel movement yesterday. Patient continues to have some wheezing seen in Solu- Medrol will be decreased slowly to 40 mg IV every 12. Objective - Vital Signs Vital signs: Vital Signs Temp 96.4 F L 10/06/17 07:00 Pulse 84 10/06/17 07:54 Resp 18 10/06/17 07:00 BP 119/70 10/06/17 07:00 Pulse Ox 94 L 10/06/17 07:00 Intake & Output 01/18/18 01/19/18 01/19/18 18:59 06:59 18:59 Intake Total 930.045 89.221 16.160 Balance 930.045 89.221 16.160 Weight 111 kg Intake: IV 400 Dextrose 5%-0.45% NaCl 1, 400 000 ml @ 50 mls/hr IV . Q20H [facility] Rx#:[id number] Intake, IV Titration 90.045 89.221 16.160 Amount Insulin Regular 100 unit 90.045 89.221 16.160 In Sodium Chloride 0.9% 100 ml @ Titrate IV .Q0M [facility] Rx#:[id number] Oral 440 Other: Voiding Method Toilet # Voids 1 - Exam General appearance: mild distress, obese - EENT Eyes: anicteric sclerae, EOMI, PERRLA, no ptosis, normal appearance ENT: hearing grossly normal, NA/AT, normal oropharynx, no thrush Ears: bilateral: normal - Neck Neck: no lymphadenopathy, normal ROM, no rigidity, no stridor, no thyromegaly Carotids: bilateral: upstroke normal Thyroid: bilateral: normal size - Respiratory Respiratory: bilateral: diminished, rhonchi, wheezing, prolonged expiration, negative: dullness, rales - Cardiovascular Rhythm: regular Heart sounds: normal: S1, S2 Abnormal Heart Sounds: no S3 Gallop, no S4 Gallop, no click - Gastrointestinal General gastrointestinal: normal bowel sounds, soft, no splenomegaly, no tenderness - Genitourinary Male genitourinary: enlarged prostate - Integumentary Integumentary: normal, normal turgor - Neurologic Neurologic: CNII-XII intact - Musculoskeletal Musculoskeletal: strength equal bilaterally - Psychiatric Psychiatric: A&O x's 3, appropriate affect, intact judgment & insight - Labs CBC & Chem 7: 10/05/17 07:22 10/06/17 12:18 Labs: Abnormal Lab Results - Last 24 Hours (Table) 10/05/17 10/05/17 10/05/17 Range/Units 12:00 14:11 16:12 POC Glucose (mg/dL) 227 H 189 H 201 H (75-99) mg/dL 10/05/17 10/05/17 10/05/17 Range/Units 17:57 19:58 22:01 POC Glucose (mg/dL) 202 H 307 H 302 H (75-99) mg/dL 10/06/17 10/06/1710/06/18 Range/Units 00:18 02:17 03:19 POC Glucose (mg/dL) 221 H 121 H 195 H (75-99) mg/dL 10/06/17 10/06/17 10/06/17 Range/Units 06:01 08:07 09:59 POC Glucose (mg/dL) 184 H 196 H 296 H (75-99) mg/dL Microbiology - Last 24 Hours (Table) 10/03/17 14:45 Blood Culture - Preliminary Blood No Growth after 48 hours 10/03/17 14:42 Urine Culture - Final Urine,Voided Assessment and Plan Plan: 1. Acute hypoxemic respiratory failure due to acute exacerbation of COPD. Solu -Medrol 40 mg IV push every 12 hours, DuoNeb 3 mg nebulization 4 times every day , Pulmicort 4 mg nebulization twice every day, start the patient on Levaquin 250 mg orally once every day, pulmonary consultation. 2. Diabetes mellitus type 2 with steroid-induced hyperglycemia. Iinsulin drip has been resumed. Continue consistent carbohydrate diet. 3. Acute bronchitis. Continue Levaquin 500 mg orally once every day. 4. CAD post [place]. Continue aspirin 81 mg orally once every day and metoprolol 100 mg orally twice every day along with Lipitor 80 mg orally once every day. 5. Hypertension and hypertensive cardiovascular disease. Continue patient on losartan 50 mg orally once every day as well as metoprolol 100 mg orally twice every day along with amlodipine 5 mg orally once every day. 6. Hyperlipidemia. Continue Lipitor 80 mg orally once every day. 7. Obesity with obstructive sleep apnea. Continue with CPAP. 8. Acute kidney injury with chronic kidney disease stage III. IV fluids 0.9 normal saline and 100 mL per hour. We'll start and discontinued for now, Lovenox decreased to 30 mg subcu daily. 9. DVT prophylaxis. Continue Lovenox 40 mg subcutaneously every 24 hours. 10. GI Prophylaxis. Protonix 40 mg orally once every day. Patient is a full code. Discharge plan: Return home Impression and plan of care have been directed as dictated by the signing physician. Lay Elizabeth nurse practitioner acting as scribe for signing physician.
[2017-10-06 14:12] LABS: Glucose,Whole Blood 288 mg/dL (75-99)
[2017-10-06 16:11] LABS: Glucose,Whole Blood 240 mg/dL (75-99)
[2017-10-06 18:43] LABS: Glucose,Whole Blood 235 mg/dL (75-99)
[2017-10-06 19:59] LABS: Glucose,Whole Blood 296 mg/dL (75-99)
[2017-10-06 22:10] LABS: Glucose,Whole Blood 266 mg/dL (75-99)
[2017-10-06] MEDS: ATORVASTATIN 80 MG TAB PO SCH (22:10)
[2017-10-06 23:59] LABS: Glucose,Whole Blood 225 mg/dL (75-99)
[2017-10-07 02:11] LABS: Glucose,Whole Blood 181 mg/dL (75-99)
[2017-10-07] MEDS: IPRATROPIUM-ALBUTEROL 3 ML NEB INHALATION PRN ×5 (03:02→20:42)
[2017-10-07 04:13] LABS: Glucose,Whole Blood 148 mg/dL (75-99)
[2017-10-07 06:09] LABS: Glucose,Whole Blood 181 mg/dL (75-99)
[2017-10-07 07:54] LABS: Glucose,Whole Blood 167 mg/dL (75-99)
[2017-10-07 08:05] LABS: Anisocytosis Slight; HCT 34.6 % (39.0-53.0); HGB 11.3 gm/dL (13.0-17.5); MCH 30.8 pg (25.0-35.0); MCHC 32.8 g/dL (31.0-37.0); MCV 93.9 fL (80.0-100.0); Mean Platelet Volume 7.3; Platelet Count 165 k/uL (150-450); RBC 3.68 m/uL (4.30-5.90); RDW 16.2 % (11.5-15.5)
[2017-10-07] MEDS: BUDESONIDE 1 MG/2 ML NEBU INHALATION SCH (08:09)
[2017-10-07] MEDS: FORMOTEROL FUMARATE 20 MCG/2 ML NEBU INHALATION SCH (08:09)
[2017-10-07] MEDS: methylPREDNISolone SOD SUCCI 40 MG/ML 1 ML VIAL IV SCH (08:15)
[2017-10-07] MEDS: METOPROLOL TARTRATE 50 MG TAB PO SCH ×2 (08:15→21:54)
[2017-10-07] MEDS: amLODIPine 10 MG TAB PO SCH (08:15)
[2017-10-07] MEDS: SODIUM CHLORIDE 0.9% 1,000 ML IV SCH (08:15)
[2017-10-07] MEDS: PANTOPRAZOLE 40 MG TABLET PO SCH (08:15)
[2017-10-07] MEDS: SENNOSIDES-DOCUSATE SODIUM 1 EACH TAB PO SCH ×2 (08:15→21:55)
[2017-10-07] MEDS: ASPIRIN 81 MG PO SCH (08:15)
[2017-10-07] MEDS: LEVOFLOXACIN 250 MG TAB PO SCH (08:15)
[2017-10-07 08:23] LABS: Calcium 8.6 mg/dL (8.4-10.2); Potassium 4.5 mmol/L (3.5-5.1)
[2017-10-07] MEDS ORDERED: ENOXAPARIN 30 MG/0.3 ML SYRINGE SQ SCH (09:00)
[2017-10-07 09:56] LABS: Glucose,Whole Blood 385 mg/dL (75-99)
[2017-10-07 12:08] LABS: Glucose,Whole Blood 197 mg/dL (75-99)
--- NOTE | 2017-10-07 13:16 | P.PN ---
Subjective Progress Note Date: 10/07/17 Principal diagnosis: COPD exacerbation Progress note dated 10/07/2017 Patient's doing well. Feeling much better. Much less short of breath. Currently coughing a bit. Not producing any phlegm. He probably could be discharged home tomorrow. The patient doesn't have a fever or chills. Not coughing up much phlegm. Not coughing up any blood. No chest pain or chest discomfort. No nausea vomiting or diarrhea. Objective - Vital Signs Vital signs: Vital Signs Temp 97.8 F 10/07/17 06:02 Pulse 92 10/07/17 11:39 Resp 22 10/07/17 08:00 BP 122/58 10/07/17 06:02 Pulse Ox 91 L 10/07/17 06:02 Intake & Output 10/06/17 10/07/17 10/07/17 18:59 06:59 18:59 Intake Total 1052.705 40.020 53.025 Balance 1052.705 40.020 53.025 Weight 117.3 kg Intake: Intake, IV Titration 77.705 40.020 53.025 Amount Insulin Regular 100 unit 77.705 40.020 53.025 In Sodium Chloride 0.9% 100 ml @ Titrate IV .Q0M [facility] Rx#:[id number] Oral 975 Other: Voiding Method Toilet Toilet # Voids 2 2 # Bowel Movements 1 - Exam No acute distress, oriented 3. HEENT examination is grossly unremarkable. Mucous membranes are moist. No oral lesions. Neck supple. Full range of motion. No adenopathy thyromegaly or neck vein distention. Cardiovascular examination reveals regular rhythm rate. S1-S2 normal. No S3 or S4. No discernible murmur noted. Lungs reveal diminished breath sounds. Breath sounds are equal. A few scattered rhonchi. Some high-pitched wheezes. No crackles. There is slight prolongation on forced maneuver. Abdomen soft bowel sounds are heard. No masses or tenderness. Extremities are intact. No cyanosis clubbing or edema. Skin is without rash or lesion. Neurologic examination is brief but nonfocal. - Labs CBC & Chem 7: 10/07/17 07:53 10/07/17 07:53 Labs: Abnormal Lab Results - Last 24 Hours (Table) 10/06/17 10/06/17 10/06/17 Range/Units 12:18 14:06 16:09 RBC (4.30-5.90) m/uL Hgb (13.0-17.5) gm/dL Hct (39.0-53.0) % RDW (11.5-15.5) % Sodium 136 L (137-145) mmol/L BUN 84 H* (9-20) mg/dL Creatinine 2.50 H (0.66-1.25) mg/dL Glucose 103 H (74-99) mg/dL POC Glucose (mg/dL) 288 H 240 H (75-99) mg/dL 10/06/17 10/06/17 10/06/17 Range/Units 18:39 19:57 22:07 RBC (4.30-5.90) m/uL Hgb (13.0-17.5) gm/dL Hct (39.0-53.0) % RDW (11.5-15.5) % Sodium (137-145) mmol/L BUN (9-20) mg/dL Creatinine (0.66-1.25) mg/dL Glucose (74-99) mg/dL POC Glucose (mg/dL) 235 H 296 H 266 H (75-99) mg/dL 10/06/17 10/07/17 10/07/17 Range/Units 23:57 02:09 04:11 RBC (4.30-5.90) m/uL Hgb (13.0-17.5) gm/dL Hct (39.0-53.0) % RDW (11.5-15.5) % Sodium (137-145) mmol/L BUN (9-20) mg/dL Creatinine (0.66-1.25) mg/dL Glucose (74-99) mg/dL POC Glucose (mg/dL) 225 H 181 H 148 H (75-99) mg/dL 10/07/17 10/07/17 10/07/17 Range/Units 05:57 07:52 07:53 RBC 3.68 L (4.30-5.90) m/uL Hgb 11.3 L (13.0-17.5) gm/dL Hct 34.6 L (39.0-53.0) % RDW 16.2 H (11.5-15.5) % Sodium (137-145) mmol/L BUN (9-20) mg/dL Creatinine (0.66-1.25) mg/dL Glucose (74-99) mg/dL POC Glucose (mg/dL) 181 H 167 H (75-99) mg/dL 10/07/17 10/07/17 10/07/17 Range/Units 07:53 09:52 12:06 RBC (4.30-5.90) m/uL Hgb (13.0-17.5) gm/dL Hct (39.0-53.0) % RDW (11.5-15.5) % Sodium (137-145) mmol/L BUN 68 H (9-20) mg/dL Creatinine 1.94 H (0.66-1.25) mg/dL Glucose 157 H (74-99) mg/dL POC Glucose (mg/dL) 385 H 197 H (75-99) mg/dL Microbiology - Last 24 Hours (Table) 10/03/17 14:45 Blood Culture - Preliminary Blood No Growth after 72 hours Assessment and Plan Assessment: Assessment COPD exacerbation complicated by tracheobronchitis Recent hospitalization for COPD exacerbation, 09/23/2017 Sleep apnea syndrome Diabetes mellitus Coronary artery disease Hypertension Obesity Acute on chronic renal failure Plan: Plan dated 10/07/2017 The patient's doing better. The patient could be discharged home in 24 hours. The patient's currently on appropriate medications including short acting beta agonist, short acting muscarinic antagonist, long-acting beta agonist, and inhaled corticosteroids. In addition, the patient remains on systemic corticosteroids and antibiotics. Likely discharge in the next day or 2. Time with Patient: Less than 30
[2017-10-07 14:34] LABS: Glucose,Whole Blood 193 mg/dL (75-99)
[2017-10-07] MEDS ORDERED: methylPREDNISolone SOD SUCCI 40 MG/ML 1 ML VIAL IV SCH (16:00)
[2017-10-07 16:05] LABS: Glucose,Whole Blood 217 mg/dL (75-99)
--- NOTE | 2017-10-07 16:08 | P.PN ---
Subjective Progress Note Date: 10/07/17 This is a 72-year-old male one of Dr. Isbell with a previous medical history significant for on CAD, diabetes mellitus type 2, hypertension and hypertensive cardiovascular disease, history of sleep apnea on CPAP, history of COPD, patient was recently hospitalized at [facility] 2017 after he was admitted for acute exacerbation of COPD he was in the hospital for few days and he was sent home patient has been complaining of increased respiratory distress last few days, and the patient ended up coming to the ER for evaluation he went to see Dr. Isbell and he sent him to the ER for evaluation on patient was found to have a COPD exacerbation, he was admitted to the hospital was placed on Solu-Medrol 60 minute gram IV push every 6 hours as well as insulin drip and subsequently was taken off his insulin drip because of his blood glucose level dropped to 150 mg deciliter and he was placed on Lantus 23 units at bedtime along with a Humalog per sliding scale. 10/05: Patient states he continues to have shortness of breath and cough that is nonproductive. Abdomen is large and he states he is passing gas but no bowel movement. Stool softener and laxative added. Blood sugars were greater than 600 last evening and patient was started on insulin drip. IV fluids will be switched over to 0.9 normal saline and Solu-Medrol will be decreased to 40 mg IV every 8 hours. Creatinine noted to be 2. 10/06: Blood sugars are now improving with insulin drip. Renal functioning has increased with the BUN 84 and creatinine 2.5. Lasix discontinued and patient started on IV fluids of 0.9 normal saline at 100 mL per hour. Losartan placed on hold. Lovenox decreased to 30. Patient states he had a small bowel movement yesterday. Patient continues to have some wheezing seen in Solu- Medrol will be decreased slowly to 40 mg IV every 12. 10/07 patient's significantly wheezing on examination. Appears to get short of breath walking short distances. Significantly better as per family as compared to yesterday. Will continue Solu-Medrol 40 IV every 8 hours and switch to oral prednisone tomorrow. Levemir initiated 20 mg at bedtime along with lispro 7 units 3 times a day. We will taper insulin drip. Objective - Vital Signs Vital signs: Vital Signs Temp 97.8 F 10/07/17 06:02 Pulse 96 10/07/17 15:56 Resp 22 10/07/17 08:00 BP 122/58 10/07/17 06:02 Pulse Ox 91 L 10/07/17 06:02 Intake & Output 10/06/17 10/07/17 10/07/17 18:59 06:59 18:59 Intake Total 1052.705 40.020 53.025 Balance 1052.705 40.020 53.025 Weight 117.3 kg Intake: Intake, IV Titration 77.705 40.020 53.025 Amount Insulin Regular 100 unit 77.705 40.020 53.025 In Sodium Chloride 0.9% 100 ml @ Titrate IV .Q0M [facility] Rx#:[id number] Oral 975 Other: Voiding Method Toilet Toilet # Voids 2 2 # Bowel Movements 1 - Exam - Exam General appearance: mild distress, obese - EENT Eyes: anicteric sclerae, EOMI, PERRLA, no ptosis, normal appearance ENT: hearing grossly normal, NA/AT, normal oropharynx, no thrush Ears: bilateral: normal - Neck Neck: no lymphadenopathy, normal ROM, no rigidity, no stridor, no thyromegaly Carotids: bilateral: upstroke normal Thyroid: bilateral: normal size - Respiratory Respiratory: bilateral: diminished, rhonchi, wheezing, prolonged expiration, negative: dullness, rales - Cardiovascular Rhythm: regular Heart sounds: normal: S1, S2 Abnormal Heart Sounds: no S3 Gallop, no S4 Gallop, no click - Gastrointestinal General gastrointestinal: normal bowel sounds, soft, no splenomegaly, no tenderness - Genitourinary Male genitourinary: enlarged prostate - Integumentary Integumentary: normal, normal turgor - Neurologic Neurologic: CNII-XII intact - Musculoskeletal Musculoskeletal: strength equal bilaterally - Psychiatric Psychiatric: A&O x's 3, appropriate affect, intact judgment & insight - Labs CBC & Chem 7: 10/07/17 07:53 10/07/17 07:53 Labs: Abnormal Lab Results - Last 24 Hours (Table) 10/06/17 10/06/17 10/06/17 Range/Units 16:09 18:39 19:57 RBC (4.30-5.90) m/uL Hgb (13.0-17.5) gm/dL Hct (39.0-53.0) % RDW (11.5-15.5) % BUN (9-20) mg/dL Creatinine (0.66-1.25) mg/dL Glucose (74-99) mg/dL POC Glucose (mg/dL) 240 H 235 H 296 H (75-99) mg/dL 10/06/17 10/06/17 10/07/17 Range/Units 22:07 23:57 02:09 RBC (4.30-5.90) m/uL Hgb (13.0-17.5) gm/dL Hct (39.0-53.0) % RDW (11.5-15.5) % BUN (9-20) mg/dL Creatinine (0.66-1.25) mg/dL Glucose (74-99) mg/dL POC Glucose (mg/dL) 266 H 225 H 181 H (75-99) mg/dL 10/07/17 10/07/17 10/07/17 Range/Units 04:11 05:57 07:52 RBC (4.30-5.90) m/uL Hgb (13.0-17.5) gm/dL Hct (39.0-53.0) % RDW (11.5-15.5) % BUN (9-20) mg/dL Creatinine (0.66-1.25) mg/dL Glucose (74-99) mg/dL POC Glucose (mg/dL) 148 H 181 H 167 H (75-99) mg/dL 10/07/17 10/07/17 10/07/17 Range/Units 07:53 07:53 09:52 RBC 3.68 L (4.30-5.90) m/uL Hgb 11.3 L (13.0-17.5) gm/dL Hct 34.6 L (39.0-53.0) % RDW 16.2 H (11.5-15.5) % BUN 68 H (9-20) mg/dL Creatinine 1.94 H (0.66-1.25) mg/dL Glucose 157 H (74-99) mg/dL POC Glucose (mg/dL) 385 H (75-99) mg/dL 10/07/17 10/07/17 Range/Units 12:06 14:22 RBC (4.30-5.90) m/uL Hgb (13.0-17.5) gm/dL Hct (39.0-53.0) % RDW (11.5-15.5) % BUN (9-20) mg/dL Creatinine (0.66-1.25) mg/dL Glucose (74-99) mg/dL POC Glucose (mg/dL) 197 H 193 H (75-99) mg/dL Microbiology - Last 24 Hours (Table) 10/03/17 14:45 Blood Culture - Preliminary Blood No Growth after 72 hours Assessment and Plan Plan: 1. Acute hypoxemic respiratory failure due to acute exacerbation of COPD. Solu -Medrol 40 mg IV push every 8 hours, DuoNeb 3 mg nebulization 4 times every day , Pulmicort 4 mg nebulization twice every day, start the patient on Levaquin 250 mg orally once every day, pulmonary consultation. Continues to have significant wheezing on examination may need 1-2 inpatient nights for improvement 2. Diabetes mellitus type 2 with steroid-induced hyperglycemia. Levemir 20 mg at bedtime along with insulin sliding scale. Lispro 7 units 3 times a day a chest based on and and requirement. Tapered on insulin drip Continue consistent carbohydrate diet. 3. Acute bronchitis. Continue Levaquin 250 mg orally once every day. 4. CAD post [place]. Continue aspirin 81 mg orally once every day and metoprolol 100 mg orally twice every day along with Lipitor 80 mg orally once every day. 5. Hypertension and hypertensive cardiovascular disease. Continue patient on losartan 50 mg orally once every day as well as metoprolol 100 mg orally twice every day along with amlodipine 5 mg orally once every day. 6. Hyperlipidemia. Continue Lipitor 80 mg orally once every day. 7. Obesity with obstructive sleep apnea. Continue with CPAP. 8. Acute kidney injury with chronic kidney disease stage III. IV fluids 0.9 normal saline and 100 mL per hour. We'll start and discontinued for now, Lovenox decreased to 30 mg subcu daily. 9. DVT prophylaxis. Continue Lovenox 40 mg subcutaneously every 24 hours. 10. GI Prophylaxis. Protonix 40 mg orally once every day. Patient is a full code. Discharge plan: Return home likely Monday
[2017-10-07 18:17] LABS: Glucose,Whole Blood 242 mg/dL (75-99)
[2017-10-07] MEDS: INSULIN ASPART 100 UNIT/ML 1 ML 10 ML VIAL SQ SCH ×3 (18:19→22:23)
[2017-10-07] MEDS: INSULIN REGULAR 100 UNIT in SODIUM CHLORIDE 0.9% 100 ML IV SCH (18:21)
[2017-10-07 20:12] LABS: Glucose,Whole Blood 317 mg/dL (75-99)
[2017-10-07] MEDS: SYMBICORT 160-4.5 MCG INHALER INHALATION SCH (20:43)
[2017-10-07] MEDS ORDERED: INSULIN DETEMIR 100 UNIT/ML 10 ML VIAL SQ SCH ×2 (21:00→22:30)
[2017-10-07] MEDS ORDERED: INSULIN REGULAR 100 UNIT in SODIUM CHLORIDE 0.9% 100 ML IV SCH (21:30)
[2017-10-07] MEDS: ATORVASTATIN 80 MG TAB PO SCH (21:55)
[2017-10-07 22:14] LABS: Glucose,Whole Blood 236 mg/dL (75-99)
[2017-10-07 23:58] LABS: Glucose,Whole Blood 191 mg/dL (75-99)
[2017-10-08 02:03] LABS: Glucose,Whole Blood 175 mg/dL (75-99)
[2017-10-08 04:13] LABS: Glucose,Whole Blood 183 mg/dL (75-99)
[2017-10-08] MEDS: IPRATROPIUM-ALBUTEROL 3 ML NEB INHALATION PRN ×5 (04:18→19:39)
[2017-10-08 06:03] LABS: Glucose,Whole Blood 189 mg/dL (75-99)
[2017-10-08] MEDS ORDERED: INSULIN ASPART 100 UNIT/ML 1 ML 10 ML VIAL SQ SCH (07:30)
[2017-10-08 08:15] LABS: Glucose,Whole Blood 164 mg/dL (75-99)
[2017-10-08] MEDS: ENOXAPARIN 40 MG/0.4 ML SYRINGE SQ SCH (08:18)
[2017-10-08] MEDS: METOPROLOL TARTRATE 50 MG TAB PO SCH ×2 (08:18→21:00)
[2017-10-08] MEDS: SENNOSIDES-DOCUSATE SODIUM 1 EACH TAB PO SCH ×2 (08:18→21:00)
[2017-10-08] MEDS: PANTOPRAZOLE 40 MG TABLET PO SCH (08:18)
[2017-10-08] MEDS: ASPIRIN 81 MG PO SCH (08:18)
[2017-10-08] MEDS: predniSONE 10 MG TAB PO SCH (08:18)
[2017-10-08] MEDS: amLODIPine 10 MG TAB PO SCH (08:18)
[2017-10-08] MEDS: SYMBICORT 160-4.5 MCG INHALER INHALATION SCH ×2 (08:18→19:39)
[2017-10-08] MEDS: LEVOFLOXACIN 250 MG TAB PO SCH (08:18)
[2017-10-08] MEDS: INSULIN ASPART 100 UNIT/ML 1 ML 10 ML VIAL SQ SCH ×3 (08:19→18:46)
[2017-10-08 10:10] LABS: Glucose,Whole Blood 344 mg/dL (75-99)
[2017-10-08 11:25] LABS: Calcium 8.6 mg/dL (8.4-10.2); Potassium 4.1 mmol/L (3.5-5.1)
[2017-10-08 12:16] LABS: Glucose,Whole Blood 190 mg/dL (75-99)
--- NOTE | 2017-10-08 13:22 | P.PN ---
Subjective Progress Note Date: 10/08/17 Principal diagnosis: COPD exacerbation Progress note dated 10/07/2017 Patient's doing well. Feeling much better. Much less short of breath. Currently coughing a bit. Not producing any phlegm. He probably could be discharged home tomorrow. The patient doesn't have a fever or chills. Not coughing up much phlegm. Not coughing up any blood. No chest pain or chest discomfort. No nausea vomiting or diarrhea. Progress note dated 10/08/2017 This is a 72-year-old male with a diagnosis of COPD exacerbation. The patient is doing much better. Much less short of breath. Still very short of breath with any activity. The patient is coughing a bit. Not producing any phlegm. No fever or chills. He is hoping to be discharged in next couple of days. He is on good medications as listed. The patient is feeling much better. No fever no chills. No coughing up of blood. No chest pain or chest discomfort. No nausea vomiting or diarrhea. Objective - Vital Signs Vital signs: Vital Signs Temp 97.3 F L 10/08/17 07:00 Pulse 100 10/08/17 11:41 Resp 22 10/08/17 07:00 BP 142/86 10/08/17 07:00 Pulse Ox 94 L 10/08/17 07:00 Intake & Output 10/07/17 10/08/17 10/08/17 18:59 06:59 18:59 Intake Total 62.082 50.315 244.702 Balance 62.082 50.315 244.702 Weight 114 kg Intake: Intake, IV Titration 62.082 50.315 44.702 Amount Insulin Regular 100 unit 62.082 14.965 In Sodium Chloride 0.9% 100 ml @ Titrate IV .Q0M [facility] Rx#:[id number] Insulin Regular 100 unit 35.350 44.702 In Sodium Chloride 0.9% 100 ml @ Titrate IV .Q0M [facility] Rx#:[id number] Oral 200 Other: # Voids 3 2 # Bowel Movements 1 - Exam No acute distress, oriented 3. HEENT examination is grossly unremarkable. Mucous membranes are moist. No oral lesions. Neck supple. Full range of motion. No adenopathy thyromegaly or neck vein distention. Cardiovascular examination reveals regular rhythm rate. S1-S2 normal. No S3 or S4. No discernible murmur noted. Lungs reveal diminished breath sounds. Breath sounds are equal. A few scattered rhonchi. Some high-pitched wheezes. No crackles. There is slight prolongation on forced maneuver. Breath sounds are improved. Abdomen soft bowel sounds are heard. No masses or tenderness. Extremities are intact. No cyanosis clubbing or edema. Skin is without rash or lesion. Neurologic examination is brief but nonfocal. - Labs CBC & Chem 7: 10/07/17 07:53 10/08/17 10:49 Labs: Abnormal Lab Results - Last 24 Hours (Table) 10/07/17 10/07/17 10/07/17 Range/Units 14:22 16:02 18:12 Sodium (137-145) mmol/L BUN (9-20) mg/dL Creatinine (0.66-1.25) mg/dL Glucose (74-99) mg/dL POC Glucose (mg/dL) 193 H 217 H 242 H (75-99) mg/dL 10/07/17 10/07/17 10/07/17 Range/Units 20:10 22:12 23:57 Sodium (137-145) mmol/L BUN (9-20) mg/dL Creatinine (0.66-1.25) mg/dL Glucose (74-99) mg/dL POC Glucose (mg/dL) 317 H 236 H 191 H (75-99) mg/dL 10/08/17 10/08/17 10/08/17 Range/Units 02:01 04:10 06:02 Sodium (137-145) mmol/L BUN (9-20) mg/dL Creatinine (0.66-1.25) mg/dL Glucose (74-99) mg/dL POC Glucose (mg/dL) 175 H 183 H 189 H (75-99) mg/dL 10/08/17 10/08/17 10/08/17 Range/Units 08:02 09:58 10:49 Sodium 135 L (137-145) mmol/L BUN 57 H (9-20) mg/dL Creatinine 1.68 H (0.66-1.25) mg/dL Glucose 300 H (74-99) mg/dL POC Glucose (mg/dL) 164 H 344 H (75-99) mg/dL 10/08/17 Range/Units 12:13 Sodium (137-145) mmol/L BUN (9-20) mg/dL Creatinine (0.66-1.25) mg/dL Glucose (74-99) mg/dL POC Glucose (mg/dL) 190 H (75-99) mg/dL Microbiology - Last 24 Hours (Table) 10/03/17 14:45 Blood Culture - Preliminary Blood No Growth after 96 hours Assessment and Plan Assessment: Assessment COPD exacerbation complicated by tracheobronchitis Recent hospitalization for COPD exacerbation, 09/23/2017 Sleep apnea syndrome Diabetes mellitus Coronary artery disease Hypertension Obesity Acute on chronic renal failure Plan: Plan dated 10/07/2017 The patient's doing better. The patient could be discharged home in 24 hours. The patient's currently on appropriate medications including short acting beta agonist, short acting muscarinic antagonist, long-acting beta agonist, and inhaled corticosteroids. In addition, the patient remains on systemic corticosteroids and antibiotics. Likely discharge in the next day or 2. Plan dated 10/08/2017 Meds labs and x-rays are reviewed. The patient is doing well. Hopeful discharge in next 24-48 hours. The patient is much improved though. Much less short of breath although he does get quite short of breath just walking to the bathroom. Is coughing a bit. Not producing any phlegm. No fever or chills. No nausea vomiting or diarrhea. Time with Patient: Less than 30
[2017-10-08 14:20] LABS: Glucose,Whole Blood 194 mg/dL (75-99)
--- NOTE | 2017-10-08 15:44 | P.PN ---
Subjective Progress Note Date: 10/08/17 This is a 72-year-old male one of Dr. Isbell with a previous medical history significant for on CAD, diabetes mellitus type 2, hypertension and hypertensive cardiovascular disease, history of sleep apnea on CPAP, history of COPD, patient was recently hospitalized at [facility] 2017 after he was admitted for acute exacerbation of COPD he was in the hospital for few days and he was sent home patient has been complaining of increased respiratory distress last few days, and the patient ended up coming to the ER for evaluation he went to see Dr. Isbell and he sent him to the ER for evaluation on patient was found to have a COPD exacerbation, he was admitted to the hospital was placed on Solu-Medrol 60 minute gram IV push every 6 hours as well as insulin drip and subsequently was taken off his insulin drip because of his blood glucose level dropped to 150 mg deciliter and he was placed on Lantus 23 units at bedtime along with a Humalog per sliding scale. 10/05: Patient states he continues to have shortness of breath and cough that is nonproductive. Abdomen is large and he states he is passing gas but no bowel movement. Stool softener and laxative added. Blood sugars were greater than 600 last evening and patient was started on insulin drip. IV fluids will be switched over to 0.9 normal saline and Solu-Medrol will be decreased to 40 mg IV every 8 hours. Creatinine noted to be 2. 10/06: Blood sugars are now improving with insulin drip. Renal functioning has increased with the BUN 84 and creatinine 2.5. Lasix discontinued and patient started on IV fluids of 0.9 normal saline at 100 mL per hour. Losartan placed on hold. Lovenox decreased to 30. Patient states he had a small bowel movement yesterday. Patient continues to have some wheezing seen in Solu- Medrol will be decreased slowly to 40 mg IV every 12. 10/07 patient's significantly wheezing on examination. Appears to get short of breath walking short distances. Significantly better as per family as compared to yesterday. Will continue Solu-Medrol 40 IV every 8 hours and switch to oral prednisone tomorrow. Levemir initiated 20 mg at bedtime along with lispro 7 units 3 times a day. We will taper insulin drip. 10/08 insulin drip discontinued today. Patient's breathing is better, still short of breath on exertion. Wheezing significantly reduced on examination. Patient initiated on prednisone 30 mg daily. Patient counseled on the use of incentive spirometer and its importance in recovery. Pulmonary rehab is a good option for the patient. Patient initiated on Levemir 25 units at bedtime along with NovoLog 7 units 3 times daily with sliding scale. Objective - Vital Signs Vital signs: Vital Signs Temp 97.3 F L 10/08/17 07:00 Pulse 81 10/08/17 15:29 Resp 18 10/08/17 08:00 BP 142/86 10/08/17 07:00 Pulse Ox 96 10/08/17 15:17 Intake & Output 10/07/17 10/08/17 10/08/17 18:59 06:59 18:59 Intake Total 62.082 50.315 244.702 Balance 62.082 50.315 244.702 Weight 114 kg Intake: Intake, IV Titration 62.082 50.315 44.702 Amount Insulin Regular 100 unit 62.082 14.965 In Sodium Chloride 0.9% 100 ml @ Titrate IV .Q0M [facility] Rx#:[id number] Insulin Regular 100 unit 35.350 44.702 In Sodium Chloride 0.9% 100 ml @ Titrate IV .Q0M [facility] Rx#:[id number] Oral 200 Other: # Voids 3 2 # Bowel Movements 1 - Exam - Exam General appearance: mild distress, obese - EENT Eyes: anicteric sclerae, EOMI, PERRLA, no ptosis, normal appearance ENT: hearing grossly normal, NA/AT, normal oropharynx, no thrush Ears: bilateral: normal - Neck Neck: no lymphadenopathy, normal ROM, no rigidity, no stridor, no thyromegaly Carotids: bilateral: upstroke normal Thyroid: bilateral: normal size - Respiratory Respiratory: bilateral: diminished, rhonchi, wheezing, prolonged expiration, negative: dullness, rales - Cardiovascular Rhythm: regular Heart sounds: normal: S1, S2 Abnormal Heart Sounds: no S3 Gallop, no S4 Gallop, no click - Gastrointestinal General gastrointestinal: normal bowel sounds, soft, no splenomegaly, no tenderness - Genitourinary Male genitourinary: enlarged prostate - Integumentary Integumentary: normal, normal turgor - Neurologic Neurologic: CNII-XII intact - Musculoskeletal Musculoskeletal: strength equal bilaterally - Psychiatric Psychiatric: A&O x's 3, appropriate affect, intact judgment & insight - Labs CBC & Chem 7: 10/07/17 07:53 10/08/17 10:49 Labs: Abnormal Lab Results - Last 24 Hours (Table) 10/07/17 10/07/17 10/07/17 Range/Units 16:02 18:12 20:10 Sodium (137-145) mmol/L BUN (9-20) mg/dL Creatinine (0.66-1.25) mg/dL Glucose (74-99) mg/dL POC Glucose (mg/dL) 217 H 242 H 317 H (75-99) mg/dL 10/07/17 10/07/17 10/08/17 Range/Units 22:12 23:57 02:01 Sodium (137-145) mmol/L BUN (9-20) mg/dL Creatinine (0.66-1.25) mg/dL Glucose (74-99) mg/dL POC Glucose (mg/dL) 236 H 191 H 175 H (75-99) mg/dL 10/08/17 10/08/17 10/08/17 Range/Units 04:10 06:02 08:02 Sodium (137-145) mmol/L BUN (9-20) mg/dL Creatinine (0.66-1.25) mg/dL Glucose (74-99) mg/dL POC Glucose (mg/dL) 183 H 189 H 164 H (75-99) mg/dL 10/08/17 10/08/17 10/08/17 Range/Units 09:58 10:49 12:13 Sodium 135 L (137-145) mmol/L BUN 57 H (9-20) mg/dL Creatinine 1.68 H (0.66-1.25) mg/dL Glucose 300 H (74-99) mg/dL POC Glucose (mg/dL) 344 H 190 H (75-99) mg/dL 10/08/17 Range/Units 14:17 Sodium (137-145) mmol/L BUN (9-20) mg/dL Creatinine (0.66-1.25) mg/dL Glucose (74-99) mg/dL POC Glucose (mg/dL) 194 H (75-99) mg/dL Microbiology - Last 24 Hours (Table) 10/03/17 14:45 Blood Culture - Preliminary Blood No Growth after 96 hours Assessment and Plan Plan: 1. Acute hypoxemic respiratory failure due to acute exacerbation of COPD. Solu -Medrol switched to oral prednisone. DuoNeb 3 mg nebulization 4 times every day , Pulmicort 4 mg nebulization twice every day, start the patient on Levaquin 250 mg orally once every day, pulmonary consultation. Continues to have significant wheezing on examination may need 1-2 inpatient nights for improvement 2. Diabetes mellitus type 2 with steroid-induced hyperglycemia. Levemir 25 mg at bedtime along with insulin sliding scale. Lispro 7 units 3 times a day a chest based on and and requirement. Tapered on insulin drip Continue consistent carbohydrate diet. 3. Acute bronchitis. Continue Levaquin 250 mg orally once every day. 4. CAD post AL. Continue aspirin 81 mg orally once every day and metoprolol 100 mg orally twice every day along with Lipitor 80 mg orally once every day. 5. Hypertension and hypertensive cardiovascular disease. Continue patient on losartan 50 mg orally once every day as well as metoprolol 100 mg orally twice every day along with amlodipine 5 mg orally once every day. 6. Hyperlipidemia. Continue Lipitor 80 mg orally once every day. 7. Obesity with obstructive sleep apnea. Continue with CPAP. 8. Acute kidney injury with chronic kidney disease stage III. IV fluids 0.9 normal saline and 100 mL per hour. We'll start and discontinued for now, Lovenox decreased to 30 mg subcu daily. 9. DVT prophylaxis. Continue Lovenox 40 mg subcutaneously every 24 hours. 10. GI Prophylaxis. Protonix 40 mg orally once every day. Patient is a full code. Discharge plan: Return home likely Monday
[2017-10-08 17:24] LABS: Glucose,Whole Blood 214 mg/dL (75-99)
[2017-10-08 20:40] LABS: Glucose,Whole Blood 352 mg/dL (75-99)
[2017-10-08] MEDS: ATORVASTATIN 80 MG TAB PO SCH (21:00)
[2017-10-08] MEDS ORDERED: INSULIN DETEMIR 100 UNIT/ML 10 ML VIAL SQ SCH (21:00)
[2017-10-09] MEDS: SENNOSIDES-DOCUSATE SODIUM 1 EACH TAB PO SCH (07:52)
[2017-10-09] MEDS: INSULIN ASPART 100 UNIT/ML 1 ML 10 ML VIAL SQ SCH (07:53)
[2017-10-09] MEDS: METOPROLOL TARTRATE 50 MG TAB PO SCH (07:53)
[2017-10-09] MEDS: predniSONE 10 MG TAB PO SCH (07:53)
[2017-10-09] MEDS: LEVOFLOXACIN 250 MG TAB PO SCH (07:53)
[2017-10-09] MEDS: amLODIPine 10 MG TAB PO SCH (07:53)
[2017-10-09] MEDS: ASPIRIN 81 MG PO SCH (07:53)
[2017-10-09 07:54] LABS: Glucose,Whole Blood 156 mg/dL (75-99)
[2017-10-09] MEDS: ENOXAPARIN 40 MG/0.4 ML SYRINGE SQ SCH (07:54)
[2017-10-09] MEDS: PANTOPRAZOLE 40 MG TABLET PO SCH (07:54)
[2017-10-09 08:07] VITALS: BP 138/89; RESP 18; TEMP 97.5
[2017-10-09] MEDS: SYMBICORT 160-4.5 MCG INHALER INHALATION SCH (08:12)
[2017-10-09] MEDS: IPRATROPIUM-ALBUTEROL 3 ML NEB INHALATION PRN ×2 (08:12→12:13)
[2017-10-09 08:25] LABS: Calcium 8.8 mg/dL (8.4-10.2); Potassium 4.5 mmol/L (3.5-5.1)
[2017-10-09] MEDS ORDERED: INSULIN ASPART 100 UNIT/ML 1 ML 10 ML VIAL SQ SCH (09:44)
--- NOTE | 2017-10-09 10:12 | P.PN ---
Subjective Progress Note Date: 10/09/17 Principal diagnosis: Acute exacerbation of COPD with tracheobronchitis Salvador is a 72-year-old white male patient that sees Dr. Delacruz in our office for his for his mild COPD, with baseline FEV1 of 81% of predicted, who presented to the hospital on 10/03/2017 at 1440 With complaints of increasing shortness of breath, cough with sputum production. He was recently hospitalized for COPD exacerbation, and discharged on 09/23/2017 after improving significantly. Patient also has history of obstructive sleep apnea, on BiPAP therapy at a pressure of 20/15, hypertension, hyperlipidemia, atherosclerotic heart disease, obesity, diabetes mellitus, chronic renal failure , diastolic congestive heart failure. Chest x-ray from 10/03/2017 shows no evidence for acute pulmonary disease. Patient was afebrile, with no evidence of hypoxia. Currently on room air with O2 sat at 94%. Lab work shows no evidence of leukocytosis, WBC is within normal limits at 8.3, hemoglobin is 13.5 no electrolyte abnormality, BUN of 38, and creatinine of 1.48. There is evidence of hyperglycemia, his blood sugars were in the 300s on admission. Hemoglobin A1c was 12.1. Serum acetone was negative, influenza screen was negative, urinalysis showed 1+ urine protein and 4+ glucose. Clinically patient is significantly wheezy and tight, with prolongation of the expiratory phase. He was started on a combination of Pulmicort, DuoNeb, IV Solu-Medrol, oral Levaquin and admitted for further management. On 10/05/2017 patient is seen in follow-up on medical surgical floor. Remains significantly wheezy, still has persistent cough. Afebrile, hemodynamically stable. On room air with O2 sat at 96-99%. Today's lab work shows WBC of 13.1 , hemoglobin of 12.1, sodium is 132, BUN is up to 73, and creatinine is 2.02. Patient developed significant hyperglycemia, last night his blood sugars were in the 600s. Insulin drip was started per attending physician. Patient remains on insulin drip today, currently infusing at 7.5 units per hour. IV maintenance fluids as 0.9 normal saline at 20 ML per hour. Steroids have been reduced to 40 mg every 8 hours per attending physician. Continue with the rest of the medical treatments. Not ready for discharge yet. On 10/06/2017 patient seen in follow-up. Remains significantly wheezy, does have Coughing spells in the mornings. On room air, with O2 sat at 94%. Afebrile, vital signs are stable. Still pretty significantly short of breath with exertion. Blood and urine culture show no growth. Continue with current medical treatment, not ready for discharge yet. On 10/09/2017 pt is seen in follow-up. Resting in bed, still complaining of shortness of breath, lung sounds positive for diffuse wheezing throughout. Still has the congestive nonproductive cough. Been ambulating to the bathroom and back, tolerating it fairly well. Afebrile, on room air. Hemodynamically stable. Microbiology results have been reviewed, blood and urine culture remained negative. Patient is on nebulized treatments, Levaquin, his prednisone has been switched to oral prednisone at 30 mg daily. Objective - Vital Signs Vital signs: Vital Signs Temp 97.5 F L 10/09/17 07:00 Pulse 84 10/09/17 08:23 Resp 18 10/09/17 07:00 BP 138/89 10/09/17 07:00 Pulse Ox 95 10/09/17 07:00 Intake & Output 10/08/17 10/09/17 10/09/17 18:59 06:59 18:59 Intake Total 244.702 300 Balance 244.702 300 Weight 109 kg Intake: Intake, IV Titration 44.702 Amount Insulin Regular 100 unit 44.702 In Sodium Chloride 0.9% 100 ml @ Titrate IV .Q0M [facility] Rx#:[id number] Oral 200 300 Other: Voiding Method Toilet # Voids 2 1 - Exam GENERAL EXAM: Alert, pleasant, 72-year-old white male in no apparent distress. HEAD: Normocephalic/atraumatic. EYES: Normal reaction of pupils, equal size. Conjunctiva pink, sclera white. NOSE: Clear with pink turbinates. THROAT: No erythema or exudates. NECK: No masses, no JVD, no thyroid enlargement, no adenopathy. CHEST: No chest wall deformity. Symmetrical expansion. LUNGS: Equal air entry with diffuse wheezes throughout, and prolongation of the expiratory phase CVS: Regular rate and rhythm, normal S1 and S2, no gallops, no murmurs, no rubs ABDOMEN: Soft, nontender. No hepatosplenomegaly, normal bowel sounds, no guarding or rigidity. EXTREMITIES: No clubbing, no edema, no cyanosis, 2+ pulses and upper and lower extremities. MUSCULOSKELETAL: Muscle strength and tone normal. SPINE: No scoliosis or deformity SKIN: No rashes CENTRAL NERVOUS SYSTEM: Alert and oriented -3. No focal deficits, tone is normal in all 4 extremities. PSYCHIATRIC: Alert and oriented -3. Appropriate affect. Intact judgment and insight. - Labs CBC & Chem 7: 10/07/17 07:53 10/09/17 07:21 Labs: Abnormal Lab Results - Last 24 Hours (Table) 10/08/17 10/08/17 10/08/17 Range/Units 09:58 10:49 12:13 Sodium 135 L (137-145) mmol/L BUN 57 H (9-20) mg/dL Creatinine 1.68 H (0.66-1.25) mg/dL Glucose 300 H (74-99) mg/dL POC Glucose (mg/dL) 344 H 190 H (75-99) mg/dL 10/08/17 10/08/17 10/08/17 Range/Units 14:17 17:18 20:17 Sodium (137-145) mmol/L BUN (9-20) mg/dL Creatinine (0.66-1.25) mg/dL Glucose (74-99) mg/dL POC Glucose (mg/dL) 194 H 214 H 352 H (75-99) mg/dL 10/09/17 10/09/17 Range/Units 07:21 07:36 Sodium (137-145) mmol/L BUN 44 H (9-20) mg/dL Creatinine 1.44 H (0.66-1.25) mg/dL Glucose 154 H (74-99) mg/dL POC Glucose (mg/dL) 156 H (75-99) mg/dL Microbiology - Last 24 Hours (Table) 10/03/17 14:45 Blood Culture - Preliminary Blood No Growth after 120 hours Assessment and Plan Plan: Assessment: #1. Acute exacerbation of COPD with tracheobronchitis #2. History of recent hospitalization for a COPD exacerbation, discharged on #3. History of mild COPD, with baseline FEV1 of 81% of predicted #4. Obstructive sleep apnea, on BiPAP therapy at a pressure of 20/15 #4. Diabetes mellitus, with evidence of steroid-induced hyperglycemia #5. Coronary artery disease #6. Hypertension #7. Obesity #8. Acute on chronic renal failure, with a component of prerenal azotemia, and developing anion gap metabolic acidosis due to Solu-Medrol induced hyperglycemia Plan: Patient remains quite wheezy, still has congested nonproductive cough. Increase activity, increase ambulation as tolerated. Continue with current medical treatments. Labs have been reviewed, renal profile is improving. Continue nebulized treatments, Levaquin, oral prednisone. I performed a history & physical examination of the patient and discussed their management with my nurse practitioner, Suki Delarosa. I reviewed the nurse practitioner's note and agree with the documented findings and plan of care. Lung sounds are positive for diffuse wheezes throughout the lung quinonez. The findings and the impression was discussed with the patient. I attest to the documentation by the nurse practitioner. Time with Patient: Less than 30
[2017-10-09 12:16] VITALS: PULSE 60
[2017-10-09 12:29] LABS: Glucose,Whole Blood 123 mg/dL (75-99)
--- NOTE | 2017-10-09 12:48 | P.DS ---
Providers Date of admission: 10/03/17 17:22 Expected date of discharge: 10/09/17 Attending physician: Kyra Sullivan Consults: 10/04/17 12:02 Consult Physician Routine Consulting Provider: Lei Wang Consult Reason/Comments: copd exacerbation Do you want consulting provider notified?: Yes Primary care physician: Tomasz [facility]go[facility] Course: This is a 72-year-old male one of Dr. Isbell with a previous medical history significant for on CAD, diabetes mellitus type 2, hypertension and hypertensive cardiovascular disease, history of sleep apnea on CPAP, history of COPD, patient was recently hospitalized at [facility] 2017 after he was admitted for acute exacerbation of COPD he was in the hospital for few days and he was sent home patient has been complaining of increased respiratory distress last few days, and the patient ended up coming to the ER for evaluation he went to see Dr. Isbell and he sent him to the ER for evaluation on patient was found to have a COPD exacerbation, he was admitted to the hospital was placed on Solu-Medrol 60 minute gram IV push every 6 hours as well as insulin drip and subsequently was taken off his insulin drip because of his blood glucose level dropped to 150 mg deciliter and he was placed on Lantus 23 units at bedtime along with a Humalog per sliding scale. 10/05: Patient states he continues to have shortness of breath and cough that is nonproductive. Abdomen is large and he states he is passing gas but no bowel movement. Stool softener and laxative added. Blood sugars were greater than 600 last evening and patient was started on insulin drip. IV fluids will be switched over to 0.9 normal saline and Solu-Medrol will be decreased to 40 mg IV every 8 hours. Creatinine noted to be 2. 10/06: Blood sugars are now improving with insulin drip. Renal functioning has increased with the BUN 84 and creatinine 2.5. Lasix discontinued and patient started on IV fluids of 0.9 normal saline at 100 mL per hour. Losartan placed on hold. Lovenox decreased to 30. Patient states he had a small bowel movement yesterday. Patient continues to have some wheezing seen in Solu- Medrol will be decreased slowly to 40 mg IV every 12. 10/07 patient's significantly wheezing on examination. Appears to get short of breath walking short distances. Significantly better as per family as compared to yesterday. Will continue Solu-Medrol 40 IV every 8 hours and switch to oral prednisone tomorrow. Levemir initiated 20 mg at bedtime along with lispro 7 units 3 times a day. We will taper insulin drip. 10/08 insulin drip discontinued today. Patient's breathing is better, still short of breath on exertion. Wheezing significantly reduced on examination. Patient initiated on prednisone 30 mg daily. Patient counseled on the use of incentive spirometer and its importance in recovery. Pulmonary rehab is a good option for the patient. Patient initiated on Levemir 25 units at bedtime along with NovoLog 7 units 3 times daily with sliding scale. 10/09: Renal function has improved with BUN of 44 and creatinine 1.44. He will be resumed back on losartan and a lower dose of Lasix for home. Instructed patient to take Levemir 27 units at home until he is off steroids or his blood sugars less than 110. Patient is to continue scale insulin as well. Pulse ox is 95% on room air. Patient will be discharged home today in stable condition. Discharge diagnoses: 1. Acute hypoxemic respiratory failure due to acute exacerbation of COPD. 2. Diabetes mellitus type 2 with steroid-induced hyperglycemia. 3. Acute bronchitis. 4. CAD post SC. 5. Hypertension and hypertensive cardiovascular disease. 6. Hyperlipidemia. 7. Obesity with obstructive sleep apnea. 8. Acute kidney injury with chronic kidney disease stage III. Discharge plan: Return home Impression and plan of care have been directed as dictated by the signing physician. Lay Elizabeth nurse practitioner acting as scribe for signing physician. Patient Condition at Discharge: Good Plan - Discharge Summary Discharge Rx Participant: Yes New Discharge Prescriptions: New Levofloxacin [Levaquin] 250 mg PO DAILY #2 tab Pantoprazole [Protonix] 40 mg PO AC-BRKFST #30 tablet. predniSONE 30 mg PO DAILY #15 tab Continue Aspirin EC [Ecotrin Low Dose] 81 mg PO DAILY Metoprolol Tartrate [Lopressor] 100 mg PO BID #120 tab amLODIPine [Norvasc] 10 mg PO DAILY Insulin Lispro [humaLOG Kwikpen] See Protocol SQ ACHS Losartan [Cozaar] 50 mg PO DAILY Budesonide-Formot 160-4.5 Mcg [Symbicort 160-4.5 Mcg Inhaler] 2 puff INHALATION RT-BID PRN PRN Reason: Dyspnea Atorvastatin [Lipitor] 80 mg PO HS Changed Furosemide [Lasix] 20 mg PO BID #0 Insulin Glargine,Hum.rec.anlog [Lantus Solostar] 27 unit SQ HS #0 Discharge Medication List Aspirin EC [Ecotrin Low Dose] 81 mg PO DAILY 10/13/16 [History] Metoprolol Tartrate [Lopressor] 100 mg PO BID #120 tab 10/19/16 [Rx] Insulin Lispro [humaLOG Kwikpen] See Protocol SQ ACHS 12/07/16 [History] Ipratropium-Albuterol Nebulize [Duoneb 0.5 mg-3 mg/3 ml Soln] 3 ml INHALATION RT -Q6H PRN #120 ampul.neb 12/07/16 [Rx] Losartan [Cozaar] 50 mg PO DAILY 12/07/16 [History] amLODIPine [Norvasc] 10 mg PO DAILY 12/07/16 [History] Budesonide-Formot 160-4.5 Mcg [Symbicort 160-4.5 Mcg Inhaler] 2 puff INHALATION RT-BID PRN 05/23/17 [History] Atorvastatin [Lipitor] 80 mg PO HS 09/21/17 [History] Furosemide [Lasix] 20 mg PO BID #0 10/09/17 [Rx] Insulin Glargine,Hum.rec.anlog [Lantus Solostar] 27 unit SQ HS #0 10/09/17 [Rx] Levofloxacin [Levaquin] 250 mg PO DAILY #2 tab 10/09/17 [Rx] Pantoprazole [Protonix] 40 mg PO AC-BRKFST #30 tablet. 10/09/17 [Rx] predniSONE 30 mg PO DAILY #15 tab 10/09/17 [Rx] Follow up Appointment(s)/Referral(s): Megan Rodriguez MD [STAFF PHYSICIAN] - 1 Week (client will have to call to make an appointment , office closed for lunch) Tomasz Isbell DO [Primary Care Provider] - 1 Week (office will call to make an appointment) Patient Instructions/Handouts: Heart Failure (DC), Type 2 Diabetes in Adults ( DC) Activity/Diet/Wound Care/Special Instructions: If blood sugar is less than 110 in the morning, decrease Lantus to 23 units. Discharge Disposition: HOME SELF-CARE
[2017-10-09] MEDS ORDERED: INSULIN DETEMIR 100 UNIT/ML 10 ML VIAL SQ SCH (21:00)
== END 2017-10-09 13:37 | disposition home or self-care (01) | DRG 190 ==
LOC: EC 14:13 → 4MS4W 17:22
PROVIDERS: ADMIT Internal Medicine; ATTEND Internal Medicine
DX: J44.1 Chronic obstructive pulmonary disease with (acute) exacerbation (principal); J96.01 Acute respiratory failure with hypoxia; N17.9 Acute kidney failure, unspecified; E87.2 Acidosis; I13.0 Hypertensive heart and chronic kidney disease with heart failure and stage 1 through stage 4 chronic kidney disease, or unspecified chronic kidney disease; I50.32 Chronic diastolic (congestive) heart failure; E11.22 Type 2 diabetes mellitus with diabetic chronic kidney disease; E11.65 Type 2 diabetes mellitus with hyperglycemia; J44.0 Chronic obstructive pulmonary disease with (acute) lower respiratory infection; T38.0X5A Adverse effect of glucocorticoids and synthetic analogues, initial encounter; J20.9 Acute bronchitis, unspecified; E78.5 Hyperlipidemia, unspecified; G47.33 Obstructive sleep apnea (adult) (pediatric); E66.9 Obesity, unspecified; N18.3 Chronic kidney disease, stage 3 (moderate); I25.10 Atherosclerotic heart disease of native coronary artery without angina pectoris; I25.2 Old myocardial infarction; Z79.4 Long term (current) use of insulin; Z79.82 Long term (current) use of aspirin; Z79.51 Long term (current) use of inhaled steroids; Z79.899 Other long term (current) drug therapy; Z83.3 Family history of diabetes mellitus; Z82.49 Family history of ischemic heart disease and other diseases of the circulatory system; Z82.3 Family history of stroke; Z87.19 Personal history of other diseases of the digestive system; Z85.828 Personal history of other malignant neoplasm of skin; Z98.52 Vasectomy status; Z90.49 Acquired absence of other specified parts of digestive tract; Z87.01 Personal history of pneumonia (recurrent)
CPT/HCPCS: 36415; 71046; 80048; 80053; 82009; 82150; 83036; 83605; 83690; 83735; 85025; 85027; 85610; 85730; 87040; 87086; 87502; 94640; 94644; 94760; 96374; 99285

== ENCOUNTER → 2017-10-17 | Outpatient (CLI) | payer MEDICARE | END | disposition home or self-care (01) | LOC: LABWHC1 14:15 | PROVIDERS: ATTEND Family Medicine | DX: I50.40 Unspecified combined systolic (congestive) and diastolic (congestive) heart failure (principal) | CPT/HCPCS: 36415; 83880 ==

== ENCOUNTER → 2017-11-22 | Outpatient (CLI) | payer MEDICARE ==
--- NOTE | 2017-11-22 14:49 | US ---
EXAMINATION TYPE: US carotid duplex BILAT DATE OF EXAM: 11/22/2017 COMPARISON: CLINICAL HISTORY: R55 Syncope. patient states he fell unexpectedly and hit head on wall. HTN per pat ient. EXAM MEASUREMENTS: RIGHT: Peak Systolic Velocity (PSV) cm/sec ----- Right CCA: 41.8 ----- Right ICA: 40.9 ----- Right ECA: 37.7 ICA/CCA ratio: 1.0 RIGHT: End Diastole cm/sec ----- Right CCA: 12.1 ----- Right ICA: 16.5 ----- Right ECA: 6.3 LEFT: Peak Systolic Velocity (PSV) cm/sec ----- Left CCA: 44.8 ----- Left ICA: 49.0 ----- Left ECA: 46.2 ICA/CCA ratio: 1.1 LEFT: End Diastole cm/sec ----- Left CCA: 14.2 ----- Left ICA: 18.4 ----- Left ECA: 13.5 VERTEBRALS (direction of flow): Right Vertebral: Antegrade Left Vertebral: Antegrade Rhythm: Arrhythmia Plaque seen in left bulb. No elevated velocities or significant stenosis. Slight wall thickening. There is some filling of the acoustic windows compatible with turbulent flow IMPRESSION: 1. No significant flow-limiting stenosis. 2. Atheromatous plaquing contributing to turbulent flow Criteria for Assigning % of Stenosis / Diameter reduction (Estimation based on the indirect measurements of the internal carotid artery velocities (ICA PSV). 1. Normal (no stenosis)=ICA PSV < 125 cm/s: ratio < 2.0: ICA EDV<40 cm/s. 2. Less than 50% stenosis=ICA PSV < 125 cm/s: ratio < 2.0: ICA EDV<40 cm/s. 3. 50 to 69% stenosis=ICA PSV of 125 to 230 cm/s: ration 2.0 ? 4.0: ICA EDV 40-100 cm/s. 4. Greater than 70% stenosis to near occlusion= ICA PSV > 230 cm/s: ratio > 4.0: ICA EDV > 100 cm/s. 5. Near occlusion= ICA PSV velocities may be low or undetectable: variable ratio and ICA EDV. 6. Total occlusion=unable to detect flow.
--- NOTE | 2017-11-22 15:42 | CT ---
EXAMINATION TYPE: CT brain w con DATE OF EXAM: 11/22/2017 COMPARISON: 12/02/2008 INDICATION: Right sided injury 2 weeks ago DLP: 1199 mGycm, Automated exposure control for dose reduction was used. CONTRAST: [address] of the brain is performed utilizing 3 mm thick sections through the posterior fossa and 3 mm thick sections through the remaining calvarium. Study is performed within 24 hours of arrival to the hosp ital. No abnormal hyperdensity is present to suggest an acute intracranial hemorrhage. No mass lesion is evident. No acute infarcts are evident. Ventricles and sulci are appropriate for the patient age. Paranasal sinuses and mastoid air cells within the [id number] are clear. IMPRESSIONS: 1. Normal CT Brain
== END | disposition home or self-care (01) ==
LOC: RADCTMAIN 12:45
PROVIDERS: ATTEND Family Medicine
DX: R55 Syncope and collapse (principal); I70.8 Atherosclerosis of other arteries
CPT/HCPCS: 82565; 84520; 93880; 70460; 36415; Q9967

== ENCOUNTER → 2018-01-03 | Outpatient (CLI) | payer MEDICARE ==
[2018-01-03 10:16] LABS: ALT 31 U/L (21-72); AST 20 U/L (17-59); Cholesterol 139 mg/dL (<200); HDL Cholesterol 65 mg/dL (40-60); LDL Cholesterol,Calculated 47 mg/dL (0-99); Triglycerides 137 mg/dL (<150)
== END | disposition home or self-care (01) ==
LOC: LABWHC1 09:27
PROVIDERS: ATTEND Nurse Practitioner Adult Health
DX: E78.2 Mixed hyperlipidemia (principal)
CPT/HCPCS: 36415; 80061; 84450; 84460

== ENCOUNTER 2018-05-03 14:34 | Inpatient (IN) | payer MEDICARE ==
[2018-05-03] MEDS ORDERED: IPRATROPIUM 0.5 MG/2.5 ML NEBU INHALATION STA ×2 (15:28→16:43)
[2018-05-03] MEDS ORDERED: ALBUTEROL NEBULIZED 2.5 MG/3 ML INHALATION STA ×2 (15:28→16:43)
[2018-05-03] MEDS ORDERED: DEXAMETHASONE SOD PHOSPHATE 10 MG/ML 1 ML VIAL IV STA (15:31)
--- NOTE | 2018-05-03 15:34 | ED ---
General Adult HPI - General Chief complaint: Shortness of Breath Stated complaint: SOB Source: patient Mode of arrival: wheelchair Limitations: no limitations - History of Present Illness Initial comments: Dictation was produced using [employer] dictation software. please excuse any grammatical, word or spelling errors. Chief Complaint: 73-year-old male past medical history of COPD, coronary artery disease, sleep apnea presents with difficulty in breathing 2 days. History of Present Illness: Has progressive COPD. He states that he's been getting worsening shortness of breath. Patient states he's been attempted to be managed outpatient with regular steroid injections. He does have breathing treatment apparatus's at home which have not been providing any benefit. Patient states that he's been coughing more with increased sputum production. Denies any chest pain. Denies any constitutional symptoms. No lower extremity symptoms. Denies any home O2. No history of DVT or PE. The ROS documented in this emergency department record has been reviewed and confirmed by me. Those systems with pertinent positive or negative responses have been documented in the HPI. All other systems are other negative and/or noncontributory. - Related Data Home Medications Medication Instructions Recorded Confirmed Aspirin EC [Ecotrin Low Dose] 81 mg PO DAILY 10/13/16 05/03/18 Insulin Lispro [humaLOG Kwikpen] See Protocol SQ ACHS 12/07/16 05/03/18 amLODIPine [Norvasc] 10 mg PO DAILY 12/07/16 05/03/18 Budesonide-Formot 160-4.5 Mcg 2 puff INHALATION RT-BID 05/23/17 05/03/18 [Symbicort 160-4.5 Mcg Inhaler] Atorvastatin [Lipitor] 80 mg PO HS 09/21/17 05/03/18 Furosemide [Lasix] 40 mg PO BID 05/03/18 05/03/18 Insulin Glargine,Hum.rec.anlog 23 unit SQ HS 05/03/18 05/03/18 [Toujeo Solostar] Loratadine [Claritin] 10 mg PO DAILY 05/03/18 05/03/18 Potassium Chloride [K-Tab ER] 20 meq PO DAILY 05/03/18 05/03/18 Previous Rx's Medication Instructions Recorded Metoprolol Tartrate [Lopressor] 100 mg PO BID #120 tab 10/19/16 Ipratropium-Albuterol Nebulize 3 ml INHALATION RT-Q6H PRN #120 12/07/16 [Duoneb 0.5 mg-3 mg/3 ml Soln] raven.neb Allergies Allergy/AdvReac Type Severity Reaction Status Date / Time No Known Allergies Allergy Verified 05/03/18 15:22 Review of Systems ROS Statement: Those systems with pertinent positive or pertinent negative responses have been documented in the HPI. ROS Other: All systems not noted in ROS Statement are negative. Past Medical History Past Medical History: Coronary Artery Disease (CAD), COPD, Diabetes Mellitus, Hyperlipidemia, Hypertension, Myocardial Infarction (DC), Pneumonia, Sleep Apnea /CPAP/BIPAP Additional Past Medical History / Comment(s): skin cancer from his scalp that has been removed Last Myocardial Infarction Date:: 2011 History of Any Multi-Drug Resistant Organisms: None Reported Past Surgical History: Cholecystectomy, Heart Catheterization With Stent, Hernia Repair Additional Past Surgical History / Comment(s): UMBILICAL HERNIA REPAIR.VASECTOMY , colonoscopy, skin ca on scalp removed. Past Anesthesia/Blood Transfusion Reactions: No Reported Reaction Date of Last Stent Placement:: 2011 Past Psychological History: No Psychological Hx Reported Smoking Status: Never smoker Past Alcohol Use History: None Reported Past Drug Use History: None Reported - Past Family History Father Family Medical History: CVA/TIA, Hypertension, Myocardial Infarction (DC) Additional Family Medical History / Comment(s): AT AGE 73-DC Mother Family Medical History: Dementia, Renal Disease Additional Family Medical History / Comment(s): AT AGE 56 COMPLICATIONS FROM DIABETES General Exam - General Exam Comments Initial Comments: PHYSICAL EXAM: General Impression: Alert and oriented x3, not in acute distress HEENT: Normocephalic atraumatic, extra-ocular movements intact, pupils equal and reactive to light bilaterally, mucous membranes moist. Cardiovascular: Heart regular rate and rhythm, S1&S2 audible, no murmurs, rubs or gallops Chest: Diffuse expiratory and inspiratory wheezes. Abdomen: Bowel sounds present, abdomen soft, non-tender, non-distended, no organomegaly Musculoskeletal: Pulses present and equal in all extremities, no peripheral edema Motor: Power 5/5 bilaterally, no focal deficits noted Neurological: CN II-XII grossly intact, no focal motor or sensory deficits noted Skin: Intact with no visualized rashes Psych: Normal affect and mood Limitations: no limitations Course Vital Signs 05/03/18 05/03/18 05/03/18 14:48 15:42 16:05 Temperature 98.3 F Pulse Rate 53 L 79 77 Respiratory 20 Rate Blood Pressure 145/75 O2 Sat by Pulse 99 Oximetry Medical Decision Making - Medical Decision Making ED course: 3-year-old male presents with clinical presentation suspicious for COPD exacerbation. Vital signs upon arrival are within acceptable limits. No concerns for DVT or PE this time heart rate 53, rest of vital signs within acceptable limits. Physical examination positive for wheezing on bilateral lung quinonez. Patient not in respiratory distress. Laboratory evaluation obtained. Patient is leukocytosis of 17.0. He denies any infectious symptoms. He has been getting regular steroid shots over the past 2-3 weeks is likely secondary to corticosteroids. Rest of CBC is unremarkable. Patient has mild anemia of 9.7. Coag panel unremarkable. Metabolic panel shows hyperglycemia at 373 again likely to corticosteroids. Two -view chest x-ray is unremarkable. Patient not showing any signs of respiratory distress however is having significant wheezing and he has been managed outpatient however feels as though his symptoms aren't improving. Patient's clinical presentation consistent with COPD exacerbation. He is given multiple breathing treatments, azithromycin. He'll be admitted for around-the- clock breathing treatments and pulmonology consult. EKG interpretation: Ventricular rate 77, sinus rhythm, MN interval 170, QRS 88, QTC 425. No MN prolongation, no QTC prolongation, no ST or T-wave changes noted. . Overall, this EKG is unremarkable - Lab Data Result diagrams: 05/03/18 15:19 05/03/18 15:19 Lab Results 05/03/18 05/03/18 05/03/18 Range/Units 15:19 15:19 15:19 WBC 17.0 H (3.8-10.6) k/uL RBC 3.15 L (4.30-5.90) m/uL Hgb 9.7 L (13.0-17.5) gm/dL Hct 28.1 L (39.0-53.0) % MCV 89.0 (80.0-100.0) fL MCH 30.8 (25.0-35.0) pg MCHC 34.6 (31.0-37.0) g/dL RDW 15.1 (11.5-15.5) % Plt Count 365 (150-450) k/uL Neutrophils % 83 % Lymphocytes % 11 % Monocytes % 5 % Eosinophils % 1 % Basophils % 0 % Neutrophils # 14.0 H (1.3-7.7) k/uL Lymphocytes # 1.8 (1.0-4.8) k/uL Monocytes # 0.8 (0-1.0) k/uL Eosinophils # 0.1 (0-0.7) k/uL Basophils # 0.0 (0-0.2) k/uL PT (9.0-12.0) sec INR (<1.2) APTT (22.0-30.0) sec Sodium 136 L (137-145) mmol/L Potassium 4.1 (3.5-5.1) mmol/L Chloride 97 L (98-107) mmol/L Carbon Dioxide 29 (22-30) mmol/L Anion Gap 10 mmol/L BUN 40 H (9-20) mg/dL Creatinine 1.10 (0.66-1.25) mg/dL Est GFR (CKD-EPI)AfAm 76 (>60 ml/min/1.73 sqM) Est GFR (CKD-EPI)NonAf 65 (>60 ml/min/1.73 sqM) Glucose 373 H (74-99) mg/dL Calcium 9.1 (8.4-10.2) mg/dL Total Bilirubin 1.3 (0.2-1.3) mg/dL AST 20 (17-59) U/L ALT 38 (21-72) U/L Alkaline Phosphatase 76 (38-126) U/L Total Creatine Kinase 75 (55-170) U/L CK-MB (CK-2) 4.1 H* (0.0-2.4) ng/mL CK-MB (CK-2) Rel Index 5.5 Troponin I 0.023 (0.000-0.034) ng/mL Total Protein 6.3 (6.3-8.2) g/dL Albumin 3.7 (3.5-5.0) g/dL 05/03/18 Range/Units 15:19 WBC (3.8-10.6) k/uL RBC (4.30-5.90) m/uL Hgb (13.0-17.5) gm/dL Hct (39.0-53.0) % MCV (80.0-100.0) fL MCH (25.0-35.0) pg MCHC (31.0-37.0) g/dL RDW (11.5-15.5) % Plt Count (150-450) k/uL Neutrophils % % Lymphocytes % % Monocytes % % Eosinophils % % Basophils % % Neutrophils # (1.3-7.7) k/uL Lymphocytes # (1.0-4.8) k/uL Monocytes # (0-1.0) k/uL Eosinophils # (0-0.7) k/uL Basophils # (0-0.2) k/uL PT 10.4 (9.0-12.0) sec INR 1.1 (<1.2) APTT 22.2 (22.0-30.0) sec Sodium (137-145) mmol/L Potassium (3.5-5.1) mmol/L Chloride (98-107) mmol/L Carbon Dioxide (22-30) mmol/L Anion Gap mmol/L BUN (9-20) mg/dL Creatinine (0.66-1.25) mg/dL Est GFR (CKD-EPI)AfAm (>60 ml/min/1.73 sqM) Est GFR (CKD-EPI)NonAf (>60 ml/min/1.73 sqM) Glucose (74-99) mg/dL Calcium (8.4-10.2) mg/dL Total Bilirubin (0.2-1.3) mg/dL AST (17-59) U/L ALT (21-72) U/L Alkaline Phosphatase (38-126) U/L Total Creatine Kinase (55-170) U/L CK-MB (CK-2) (0.0-2.4) ng/mL CK-MB (CK-2) Rel Index Troponin I (0.000-0.034) ng/mL Total Protein (6.3-8.2) g/dL Albumin (3.5-5.0) g/dL Disposition Clinical Impression: COPD exacerbation Disposition: ADMITTED IP TO THIS HOSP Condition: Fair Referrals: Megan Rodriguez MD [Primary Care Provider] - 1-2 days Time of Disposition: 16:48
[2018-05-03 15:52] LABS: Basophils % (A) 0 %; Eosinophils # (A) 0.1 k/uL (0-0.7); Eosinophils % (A) 1 %; HCT 28.1 % (39.0-53.0); HGB 9.7 gm/dL (13.0-17.5); Lymphocytes # (A) 1.8 k/uL (1.0-4.8); Lymphocytes % (A) 11 %; MCH 30.8 pg (25.0-35.0); MCHC 34.6 g/dL (31.0-37.0); Mean Platelet Volume 6.6; Monocytes # (A) 0.8 k/uL (0-1.0); Monocytes % (A) 5 %; Neutrophils % (A) 83 %; Platelet Count 365 k/uL (150-450); RBC 3.15 m/uL (4.30-5.90); RDW 15.1 % (11.5-15.5)
[2018-05-03 16:04] LABS: Albumin 3.7 g/dL (3.5-5.0); Calcium 9.1 mg/dL (8.4-10.2); Potassium 4.1 mmol/L (3.5-5.1); Total Bilirubin 1.3 mg/dL (0.2-1.3); Total Protein 6.3 g/dL (6.3-8.2)
[2018-05-03 16:11] LABS: INR 1.1 (<1.2); Partial Thromboplastin Time 22.2 sec (22.0-30.0); Prothrombin Time 10.4 sec (9.0-12.0)
[2018-05-03 16:22] LABS: Troponin I 0.023 ng/mL (0.000-0.034)
[2018-05-03 16:26] LABS: Creatine Kinase MB 4.1 ng/mL (0.0-2.4)
[2018-05-03] MEDS ORDERED: AZITHROMYCIN 500 MG in SODIUM CHLORIDE 0.9% 250 ML IVPB STA (16:37)
--- NOTE | 2018-05-03 16:39 | XR ---
EXAMINATION TYPE: XR chest 2V DATE OF EXAM: 05/03/2018 COMPARISON: 10/13/2017 HISTORY: Difficulty breathing TECHNIQUE: Frontal and lateral views of the chest are obtained. FINDINGS: Heart and mediastinum are normal. Lungs are clear. Diaphragm is normal. There are chest le ads. Bony thorax is intact. IMPRESSION: Normal chest. No change.
[2018-05-03] MEDS ORDERED: INSULIN ASPART 100 UNIT/ML 1 ML 10 ML VIAL SQ SCH ×2 (17:30→21:00)
[2018-05-03 18:50] LABS: Glucose,Whole Blood 362 mg/dL (75-99)
[2018-05-03] MEDS: IPRATROPIUM-ALBUTEROL 3 ML NEB INHALATION SCH (19:34)
[2018-05-03 20:42] LABS: Glucose,Whole Blood 440 mg/dL (75-99)
[2018-05-03] MEDS ORDERED: DOXYCYCLINE 50 MG CAP PO SCH (21:00)
[2018-05-03] MEDS ORDERED: INSULIN DETEMIR 100 UNIT/ML 10 ML VIAL SQ SCH (21:00)
[2018-05-03] MEDS ORDERED: HYDROcodone/APAP 5-325MG 1 EACH TAB PO PRN (21:32)
[2018-05-03] MEDS ORDERED: ALPRAZolam 0.25 MG TAB PO PRN (21:32)
[2018-05-03] MEDS ORDERED: TEMAZEPAM 15 MG CAP PO PRN (21:32)
[2018-05-03] MEDS ORDERED: ACETAMINOPHEN TAB 500 MG TAB PO PRN (21:32)
[2018-05-03] MEDS ORDERED: INSULIN GLARGINE HUM REC ANLOG 23 UNIT SQ SCH (21:45)
[2018-05-03] MEDS ORDERED: INSULIN REGULAR BOLUS (FROM DRIP BAG) IV ONE (22:23)
[2018-05-03] MEDS: FUROSEMIDE 40 MG TAB PO SCH (22:28)
[2018-05-03] MEDS: METOPROLOL TARTRATE 50 MG TAB PO SCH (22:28)
[2018-05-03] MEDS: ATORVASTATIN 80 MG TAB PO SCH (22:28)
[2018-05-03] MEDS: DOXYCYCLINE MONOHYDRATE 100 MG CAPSULE PO SCH (22:28)
[2018-05-03] MEDS: HEPARIN SODIUM,PORCINE 5,000 UNIT/ML 1 ML VIAL SQ SCH (22:28)
[2018-05-03] MEDS: INSULIN REGULAR 100 UNIT in SODIUM CHLORIDE 0.9% 100 ML IV SCH (23:01)
[2018-05-03] MEDS: methylPREDNISolone SOD SUCCI 40 MG/ML 1 ML VIAL IV SCH (23:04)
[2018-05-03 23:32] LABS: Glucose,Whole Blood 408 mg/dL (75-99)
[2018-05-04 00:04] LABS: Glucose,Whole Blood 331 mg/dL (75-99)
[2018-05-04 00:32] LABS: Glucose,Whole Blood 272 mg/dL (75-99)
[2018-05-04 01:02] LABS: Glucose,Whole Blood 265 mg/dL (75-99)
[2018-05-04 01:31] LABS: Glucose,Whole Blood 199 mg/dL (75-99)
[2018-05-04 03:32] LABS: Glucose,Whole Blood 91 mg/dL (75-99)
[2018-05-04 04:32] LABS: Glucose,Whole Blood 167 mg/dL (75-99)
[2018-05-04] MEDS: INSULIN REGULAR 100 UNIT in SODIUM CHLORIDE 0.9% 100 ML IV SCH ×2 (06:01→22:52)
[2018-05-04 06:31] LABS: Glucose,Whole Blood 174 mg/dL (75-99)
[2018-05-04] MEDS: INSULIN ASPART 100 UNIT/ML 1 ML 10 ML VIAL SQ SCH ×3 (06:32→17:38)
[2018-05-04 06:38] LABS: Calcium 9.4 mg/dL (8.4-10.2); Potassium 3.8 mmol/L (3.5-5.1)
[2018-05-04 06:41] LABS: Basophils % (A) 0 %; Eosinophils % (A) 0 %; HCT 40.5 % (39.0-53.0); Lymphocytes # (A) 0.7 k/uL (1.0-4.8); Lymphocytes % (A) 6 %; MCH 30.1 pg (25.0-35.0); MCHC 34.1 g/dL (31.0-37.0); MCV 88.3 fL (80.0-100.0); Mean Platelet Volume 6.5; Monocytes # (A) 0.4 k/uL (0-1.0); Monocytes % (A) 3 %; Neutrophils # (A) 12.4 k/uL (1.3-7.7); Neutrophils % (A) 91 %; Platelet Count 284 k/uL (150-450); RBC 4.59 m/uL (4.30-5.90); RDW 14.9 % (11.5-15.5); WBC 13.5 k/uL (3.8-10.6)
[2018-05-04] MEDS: PANTOPRAZOLE 40 MG TABLET PO SCH (06:46)
[2018-05-04 06:47] LABS: HGB 13.8 gm/dL (13.0-17.5)
[2018-05-04] MEDS ORDERED: INSULIN ASPART 100 UNIT/ML 1 ML 10 ML VIAL SQ SCH (07:30)
[2018-05-04] MEDS: SYMBICORT 160-4.5 MCG INHALER INHALATION SCH ×2 (08:03→20:12)
[2018-05-04] MEDS: IPRATROPIUM-ALBUTEROL 3 ML NEB INHALATION SCH ×4 (08:03→20:12)
[2018-05-04 08:46] LABS: Glucose,Whole Blood 285 mg/dL (75-99)
[2018-05-04] MEDS ORDERED: FAMOTIDINE 20 MG TAB PO SCH (09:00)
[2018-05-04] MEDS ORDERED: NON-FORMULARY DRUG (Potassium Chloride [K-Tab Er] 20 MEQ) PO SCH (09:00)
[2018-05-04] MEDS: methylPREDNISolone SOD SUCCI 40 MG/ML 1 ML VIAL IV SCH ×2 (09:33→15:32)
[2018-05-04] MEDS: FUROSEMIDE 40 MG TAB PO SCH ×2 (09:34→15:30)
[2018-05-04] MEDS: ASPIRIN 81 MG PO SCH (09:34)
[2018-05-04] MEDS: POTASSIUM CHLORIDE ER 20 MEQ TAB.ER PO SCH (09:34)
[2018-05-04] MEDS: DOXYCYCLINE MONOHYDRATE 100 MG CAPSULE PO SCH ×2 (09:34→19:58)
[2018-05-04] MEDS: HEPARIN SODIUM,PORCINE 5,000 UNIT/ML 1 ML VIAL SQ SCH ×2 (09:34→19:58)
[2018-05-04] MEDS: LORATADINE 10 MG TAB PO SCH (09:34)
[2018-05-04] MEDS: METOPROLOL TARTRATE 50 MG TAB PO SCH ×2 (09:34→19:58)
[2018-05-04] MEDS: amLODIPine 10 MG TAB PO SCH (09:34)
[2018-05-04 11:12] LABS: Glucose,Whole Blood 300 mg/dL (75-99)
--- NOTE | 2018-05-04 11:35 | P.HPIM ---
History of Present Illness H&P Date: 05/04/18 Chief Complaint: Respiratory failure, COPD exacerbation, chest pain, obstructive sleep apnea 73-year-old be due obese male one of Dr. Isbell patient with past medical history of COPD, CAD, and obstructive sleep apnea who was in the hospital last time in September 2017 for COPD exacerbation. Patient seen Dr. Rodriguez pulmonary on regular basis also seeing cardiology regular basis patient had angioplasty and stent placement in the past is still seen cardiology for secondary prevention regularly. Patient presented to demurs department at [facility] with complaining of worsening shortness of breath with cough productive Dr. phlegm along with tightness and wheezes with severe hypoxia symptoms become much worse over the last 24 hours patient had failed outpatient treatment. Patient ended up coming to the emergency department was seen and evaluated was very tachypneic mildly hypoxic despite doing continue to be symptomatic. As he was treated in the emergency department patient developed to have chest pain and worsening shortness of breath with mild palpitation. CK with troponin was negative. Patient was started on IV antibiotics along with steroid and updraft treatment [id number] and admitted to the hospital. Review of Systems CONSTITUTIONAL: Obese and mild respiratory distress. EYES: No icterus sclerae, no conjunctivitis. EARS, NOSE, MOUTH, THROAT, and FACE: No sore throat, lymphadenopathy, carotid bruits or deformity. RESPIRATORY: Positive shortness of breath, cough and wheezes. CARDIOVASCULAR: Positive chest pain and palpitation. GASTROINTESTINAL: No Abd pain, Nausea or vomiting, no Diarrhea or constipation, No GI Bleed, no distention or masses. GENITOURINARY: Negative for Hematuria or UTI, no kidney stones. INTEGUMENT/BREAST: Negative for any muscular injury with mild osteoarthritis.. HEMATOLOGIC/LYMPHATIC: Negative for bleed or purpura. MUSCULOSKELTAL: Negative for Myalgia or arthralgia. NEURLOGICAL: No LOC, Sz or syncope, blurred vision dizziness or abnormality.. BEHAVIORAL/PSYCH: Negative. ENDOCRINE: Negative. Past Medical History Past Medical History: Coronary Artery Disease (CAD), COPD, Diabetes Mellitus, Hyperlipidemia, Hypertension, Myocardial Infarction ([place]), Pneumonia, Sleep Apnea /CPAP/BIPAP Additional Past Medical History / Comment(s): skin cancer from his scalp that has been removed Last Myocardial Infarction Date:: 2011 History of Any Multi-Drug Resistant Organisms: None Reported Past Surgical History: Cholecystectomy, Heart Catheterization With Stent, Hernia Repair Additional Past Surgical History / Comment(s): UMBILICAL HERNIA REPAIR.VASECTOMY , colonoscopy, skin ca on scalp removed. Past Anesthesia/Blood Transfusion Reactions: No Reported Reaction Date of Last Stent Placement:: 2011 Smoking Status: Never smoker - Past Family History Father Family Medical History: CVA/TIA, Hypertension, Myocardial Infarction ([place]) Additional Family Medical History / Comment(s): AT AGE 73-[place] Mother Family Medical History: Dementia, Renal Disease Additional Family Medical History / Comment(s): AT AGE 56 COMPLICATIONS FROM DIABETES Medications and Allergies Home Medications Medication Instructions Recorded Confirmed Type Aspirin EC [Ecotrin Low Dose] 81 mg PO DAILY 10/13/16 05/03/18 History Metoprolol Tartrate [Lopressor] 100 mg PO BID #120 tab 10/19/16 05/03/18 Rx Insulin Lispro [humaLOG Kwikpen] See Protocol SQ ACHS 12/07/16 05/03/18 History Ipratropium-Albuterol Nebulize 3 ml INHALATION RT-Q6H PRN #120 12/07/16 Rx [Duoneb 0.5 mg-3 mg/3 ml Soln] ampul.neb amLODIPine [Norvasc] 10 mg PO DAILY 12/07/16 05/03/18 History Budesonide-Formot 160-4.5 Mcg 2 puff INHALATION RT-BID 05/23/17 05/03/18 History [Symbicort 160-4.5 Mcg Inhaler] Atorvastatin [Lipitor] 80 mg PO HS 09/21/17 05/03/18 History Furosemide [Lasix] 40 mg PO BID 05/03/18 05/03/18 History Insulin Glargine,Hum.rec.anlog 23 unit SQ HS 05/03/18 05/03/18 History [Toujeo Solostar] Loratadine [Claritin] 10 mg PO DAILY 05/03/18 05/03/18 History Potassium Chloride [K-Tab ER] 20 meq PO DAILY 05/03/18 05/03/18 History Allergies Allergy/AdvReac Type Severity Reaction Status Date / Time No Known Allergies Allergy Verified 05/03/18 15:22 Physical Exam Vitals: Vital Signs Temp Pulse Pulse Resp BP BP Pulse Ox 05/04/18 08:14 77 05/04/18 08:04 76 05/04/18 08:00 97.9 F 96 16 137/90 96 05/04/18 04:00 97.1 F L 86 16 135/83 97 05/04/18 00:00 97.5 F L 83 17 143/86 95 05/03/18 20:00 97.1 F L 98 19 131/74 95 05/03/18 19:46 88 05/03/18 19:36 90 05/03/18 18:37 85 05/03/18 18:27 97.1 F L 85 19 151/79 100 05/03/18 17:21 79 05/03/18 17:09 98.9 F 80 18 146/100 100 05/03/18 16:54 75 05/03/18 16:05 77 05/03/18 15:42 79 05/03/18 14:48 98.3 F 53 L 20 145/75 99 Intake and Output 05/03/18 05/04/18 05/04/18 22:59 06:59 14:59 Intake Total 1030.563 249.66 Balance 1030.563 249.66 Intake: Intake, IV Titration 70.563 9.66 Amount Insulin Regular 100 unit 70.563 9.66 In Sodium Chloride 0.9% 100 ml @ Titrate IV .Q0M [facility] Rx#:[id number] Oral 960 240 Other: # Voids 1 3 Weight 108.6 kg General Appearance: Alert, cooperative, no distress, mildly overweight. Neck HEENT: Supple, no lymphadenopathy, no thyroid enlargement, no carotid bruits. Lungs: Decreased expansion with decreased breath sound bilaterally positive fine rhonchi with mild crackles in the bases positive mild inspiratory expiratory wheezes. Chest Wall: no tenderness and no deformity was found on exam, no costochondral pain or discomfort. Heart: Regular rate and rhythm, S1, S2 normal, positive murmur no rub or gallop Back: Symmetric, no curvature, ROM normal, no CVA tenderness. Abdomen: Soft, non-tender, bowel sounds active all four quadrants, no masses, no organomegaly. 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 Pulses: 2+ and symmetric. Skin: Skin color, texture, tugor normal, no rashes or lesions. Neurologic: Alert oriented x3 cranial nerves II through XII intact, no motor deficit, no abnormal balance or gait. Results CBC & Chem 7: 05/04/18 05:55 05/04/18 05:55 Labs: Abnormal Lab Results - Last 24 Hours (Table) 05/03/18 05/03/18 05/03/18 Range/Units 15:19 15:19 15:19 WBC 17.0 H (3.8-10.6) k/uL RBC 3.15 L (4.30-5.90) m/uL Hgb 9.7 L (13.0-17.5) gm/dL Hct 28.1 L (39.0-53.0) % Neutrophils # 14.0 H (1.3-7.7) k/uL Lymphocytes # (1.0-4.8) k/uL Sodium 136 L (137-145) mmol/L Chloride 97 L (98-107) mmol/L BUN 40 H (9-20) mg/dL Creatinine (0.66-1.25) mg/dL Glucose 373 H (74-99) mg/dL POC Glucose (mg/dL) (75-99) mg/dL CK-MB (CK-2) 4.1 H* (0.0-2.4) ng/mL 05/03/18 05/03/18 05/03/18 Range/Units 18:45 20:40 23:30 WBC (3.8-10.6) k/uL RBC (4.30-5.90) m/uL Hgb (13.0-17.5) gm/dL Hct (39.0-53.0) % Neutrophils # (1.3-7.7) k/uL Lymphocytes # (1.0-4.8) k/uL Sodium (137-145) mmol/L Chloride (98-107) mmol/L BUN (9-20) mg/dL Creatinine (0.66-1.25) mg/dL Glucose (74-99) mg/dL POC Glucose (mg/dL) 362 H 440 H 408 H (75-99) mg/dL CK-MB (CK-2) (0.0-2.4) ng/mL 05/04/18 05/04/18 05/04/18 Range/Units 00:02 00:31 01:01 WBC (3.8-10.6) k/uL RBC (4.30-5.90) m/uL Hgb (13.0-17.5) gm/dL Hct (39.0-53.0) % Neutrophils # (1.3-7.7) k/uL Lymphocytes # (1.0-4.8) k/uL Sodium (137-145) mmol/L Chloride (98-107) mmol/L BUN (9-20) mg/dL Creatinine (0.66-1.25) mg/dL Glucose (74-99) mg/dL POC Glucose (mg/dL) 331 H 272 H 265 H (75-99) mg/dL CK-MB (CK-2) (0.0-2.4) ng/mL 05/04/18 05/04/18 05/04/18 Range/Units 01:30 04:30 05:55 WBC 13.5 H (3.8-10.6) k/uL RBC (4.30-5.90) m/uL Hgb (13.0-17.5) gm/dL Hct (39.0-53.0) % Neutrophils # 12.4 H (1.3-7.7) k/uL Lymphocytes # 0.7 L (1.0-4.8) k/uL Sodium (137-145) mmol/L Chloride (98-107) mmol/L BUN (9-20) mg/dL Creatinine (0.66-1.25) mg/dL Glucose (74-99) mg/dL POC Glucose (mg/dL) 199 H 167 H (75-99) mg/dL CK-MB (CK-2) (0.0-2.4) ng/mL 05/04/18 05/04/18 05/04/18 Range/Units 05:55 06:30 08:44 WBC (3.8-10.6) k/uL RBC (4.30-5.90) m/uL Hgb (13.0-17.5) gm/dL Hct (39.0-53.0) % Neutrophils # (1.3-7.7) k/uL Lymphocytes # (1.0-4.8) k/uL Sodium (137-145) mmol/L Chloride (98-107) mmol/L BUN 43 H (9-20) mg/dL Creatinine 1.40 H (0.66-1.25) mg/dL Glucose 158 H (74-99) mg/dL POC Glucose (mg/dL) 174 H 285 H (75-99) mg/dL CK-MB (CK-2) (0.0-2.4) ng/mL Thrombosis Risk Factor Assmnt - DVT/VTE Prophylaxis DVT/VTE Prophylaxis: Pharmacologic Prophylaxis ordered, Mechanical Prophylaxis ordered - Choose All That Apply Each Factor Represents 1 point: Abnormal pulmonary function (COPD), Obesity ( BMI >25) Other Risk Factors: Yes Each Risk Factor Represents 3 Points: Age 75 years or older Thrombosis Risk Factor Assessment Total Risk Factor Score: 5 Thrombosis Risk Factor Assessment Level: High Risk Assessment and Plan Plan: 1 acute respiratory failure: Combination of COPD exacerbation, severe bronchitis and cardiac as well. We'll try to treat underlying disease continue O2 continue updraft treatment. 2 COPD exacerbation: Patient will be on Solu-Medrol, mixup with graft treatment along with Symbicort, will consult pulmonary. 3 severe bronchitis: Patient was started on doxycycline 100 mg twice a day. 4 chest pain: Atypical, with patient's current history we'll consult cardiology CK with troponin 3 will be done echocardiogram will be repeated less is done last 6 months and patient might require to go for further intervention if abnormal testing found otherwise stress test can be arranged as an outpatient when patient is more stable. 5 type 2 diabetes on insulin: With blood sugar been high patient was started on insulin drip we'll switch him back to Levemir 50 units subcutaneous at bedtime with 10 units of NovoLog before meals meals plus a sliding scale and stop insulin drip 2 hours after starting some cutaneous injection. 6 CAD: Has been doing well on metoprolol. 7 CHF: Mostly diastolic dysfunction, patient will be on Lasix with metoprolol. 8 hypertension: Remain on amlodipine, and metoprolol. 9 hyperlipidemia: Still on Lipitor 80 mg daily. 10 severe GERD/GI prophylaxis: Patient will be on pantoprazole daily. 11 DVT prophylaxis: Continue heparin 5000 units subcutaneous twice a day. 12 acute kidney injury on chronic kidney disease: Repeat BUN/creatinine next 24 hours continue gentle hydration as well. CODE STATUS: Full code. Admit patient to inpatient status for more than 2 nights.
[2018-05-04 13:05] LABS: Glucose,Whole Blood 221 mg/dL (75-99)
[2018-05-04 13:18] LABS: Hemoglobin A1C 10.4 % (4.0-6.0)
--- NOTE | 2018-05-04 14:14 | P.CNPUL ---
History of Present Illness Consult date: 05/04/18 Reason for consult: dyspnea, cough, COPD, hypoxemia, abnormal CXR/CT Chief complaint: Shortness of breath/COPD exacerbation History of present illness: Pulmonary consultation dated 05/04/2018 This is a 73-year-old male with a known history of COPD. He also has a history of CAD sleep apnea syndrome as well. The patient presents with 2 days of increasing and progressive shortness of breath. The patient also has significant cough chest tightness wheezing and some phlegm production. No chest pain or chest discomfort. No fever chills nausea vomiting or diarrhea. The patient typically sees Dr. Rodriguez in the office. The patient states that he is feeling better after having been seen in the emergency department on May 03. He is certainly not back to baseline. He denies any hemoptysis. No fever or chills. Chest x-ray was negative for anything acute. The patient has a history of CAD COPD diabetes hyperlipidemia hypertension myocardial infarction pneumonia sleep apnea syndrome and skin cancer. He's had a heart catheterization with stent placement. Review of Systems A 14 point review of system is positive for shortness of breath chest tightness wheezing cough chest congestion shortness of breath and phlegm production. No hemoptysis. No fever or chills. No chest pain or chest discomfort. Past Medical History Past Medical History: Coronary Artery Disease (CAD), COPD, Diabetes Mellitus, Hyperlipidemia, Hypertension, Myocardial Infarction ([place]), Pneumonia, Sleep Apnea /CPAP/BIPAP Additional Past Medical History / Comment(s): skin cancer from his scalp that has been removed Last Myocardial Infarction Date:: 2011 History of Any Multi-Drug Resistant Organisms: None Reported Past Surgical History: Cholecystectomy, Heart Catheterization With Stent, Hernia Repair Additional Past Surgical History / Comment(s): UMBILICAL HERNIA REPAIR.VASECTOMY , colonoscopy, skin ca on scalp removed. Past Anesthesia/Blood Transfusion Reactions: No Reported Reaction Date of Last Stent Placement:: 2011 Smoking Status: Never smoker - Past Family History Father Family Medical History: CVA/TIA, Hypertension, Myocardial Infarction ([place]) Additional Family Medical History / Comment(s): AT AGE 73-[place] Mother Family Medical History: Dementia, Renal Disease Additional Family Medical History / Comment(s): AT AGE 56 COMPLICATIONS FROM DIABETES Medications and Allergies Home Medications Medication Instructions Recorded Confirmed Type Aspirin EC [Ecotrin Low Dose] 81 mg PO DAILY 10/13/16 05/03/18 History Metoprolol Tartrate [Lopressor] 100 mg PO BID #120 tab 10/19/16 05/03/18 Rx Insulin Lispro [humaLOG Kwikpen] See Protocol SQ ACHS 12/07/16 05/03/18 History Ipratropium-Albuterol Nebulize 3 ml INHALATION RT-Q6H PRN #120 12/07/16 Rx [Duoneb 0.5 mg-3 mg/3 ml Soln] ampul.neb amLODIPine [Norvasc] 10 mg PO DAILY 12/07/16 05/03/18 History Budesonide-Formot 160-4.5 Mcg 2 puff INHALATION RT-BID 05/23/17 05/03/18 History [Symbicort 160-4.5 Mcg Inhaler] Atorvastatin [Lipitor] 80 mg PO HS 09/21/17 05/03/18 History Furosemide [Lasix] 40 mg PO BID 05/03/18 05/03/18 History Insulin Glargine,Hum.rec.anlog 23 unit SQ HS 05/03/18 05/03/18 History [Toujeo Solostar] Loratadine [Claritin] 10 mg PO DAILY 05/03/18 05/03/18 History Potassium Chloride [K-Tab ER] 20 meq PO DAILY 05/03/18 05/03/18 History Allergies Allergy/AdvReac Type Severity Reaction Status Date / Time No Known Allergies Allergy Verified 05/03/18 15:22 Physical Exam Osteopathic Statement: *. No significant issues noted on an osteopathic structural exam other than those noted in the History and Physical/Consult. Vitals: Vital Signs Temp Pulse Pulse Resp BP BP Pulse Ox 05/04/18 12:00 97.8 F 71 16 130/81 97 05/04/18 11:42 80 05/04/18 11:32 79 05/04/18 08:14 77 05/04/18 08:04 76 05/04/18 08:00 97.9 F 96 16 137/90 96 05/04/18 04:00 97.1 F L 86 16 135/83 97 05/04/18 00:00 97.5 F L 83 17 143/86 95 05/03/18 20:00 97.1 F L 98 19 131/74 95 08/16/18 19:46 88 05/03/18 19:36 90 05/03/18 18:37 85 05/03/18 18:27 97.1 F L 85 19 151/79 100 05/03/18 17:21 79 05/03/18 17:09 98.9 F 80 18 146/100 100 05/03/18 16:54 75 05/03/18 16:05 77 05/03/18 15:42 79 05/03/18 14:48 98.3 F 53 L 20 145/75 99 Intake and Output 05/03/18 05/04/18 05/04/18 22:59 06:59 14:59 Intake Total 1030.563 258.447 Balance 1030.563 258.447 Intake: Intake, IV Titration 70.563 18.447 Amount Insulin Regular 100 unit 70.563 18.447 In Sodium Chloride 0.9% 100 ml @ Titrate IV .Q0M [facility] Rx#:[id number] Oral 960 240 Other: # Voids 1 3 1 # Bowel Movements 1 Weight 108.6 kg No acute distress, oriented 3. No respiratory distress. No supplemental oxygen noted. HEENT examination is grossly unremarkable. Mucous membranes are moist. No oral lesions. Neck supple. Full range of motion. No adenopathy thyromegaly or neck vein distention. Cardiovascular examination reveals regular rhythm rate. S1-S2 normal. No S3 or S4. No discernible murmur noted. Lungs reveal diffuse expiratory wheezing. Coarse rhonchi not noted. Breath sounds equal bilaterally but somewhat diminished. There is prolongation on forced maneuver. No crackles. Abdomen soft bowel sounds are heard. No masses or tenderness. Extremities are intact. No cyanosis clubbing or edema. Skin is without rash or lesion. Neurologic examination is brief but nonfocal. Results - Laboratory Findings CBC and BMP: 05/04/18 05:55 05/04/18 05:55 PT/INR, D-dimer PT 10.4 sec (9.0-12.0) 05/03/18 15:19 INR 1.1 (<1.2) 05/03/18 15:19 Abnormal lab findings: Abnormal Labs 05/03/18 05/03/18 05/03/18 15:19 15:19 15:19 WBC 17.0 H RBC 3.15 L Hgb 9.7 L Hct 28.1 L Neutrophils # 14.0 H Lymphocytes # Sodium 136 L Chloride 97 L BUN 40 H Creatinine Glucose 373 H POC Glucose (mg/dL) Hemoglobin A1c CK-MB (CK-2) 4.1 H* 05/03/18 05/03/18 05/03/18 18:45 20:40 23:30 WBC RBC Hgb Hct Neutrophils # Lymphocytes # Sodium Chloride BUN Creatinine Glucose POC Glucose (mg/dL) 362 H 440 H 408 H Hemoglobin A1c CK-MB (CK-2) 05/04/18 05/04/18 05/04/18 00:02 00:31 01:01 WBC RBC Hgb Hct Neutrophils # Lymphocytes # Sodium Chloride BUN Creatinine Glucose POC Glucose (mg/dL) 331 H 272 H 265 H Hemoglobin A1c CK-MB (CK-2) 05/04/18 05/04/18 05/04/18 01:30 04:30 05:55 WBC 13.5 H RBC Hgb Hct Neutrophils # 12.4 H Lymphocytes # 0.7 L Sodium Chloride BUN Creatinine Glucose POC Glucose (mg/dL) 199 H 167 H Hemoglobin A1c CK-MB (CK-2) 05/04/18 05/04/18 05/04/18 05:55 05:55 06:30 WBC RBC Hgb Hct Neutrophils # Lymphocytes # Sodium Chloride BUN 43 H Creatinine 1.40 H Glucose 158 H POC Glucose (mg/dL) 174 H Hemoglobin A1c 10.4 H CK-MB (CK-2) 05/04/18 05/04/18 05/04/18 08:44 11:02 13:03 WBC RBC Hgb Hct Neutrophils # Lymphocytes # Sodium Chloride BUN Creatinine Glucose POC Glucose (mg/dL) 285 H 300 H 221 H Hemoglobin A1c CK-MB (CK-2) - Diagnostic Findings Chest x-ray: report reviewed, image reviewed (Chest x-ray, labs and medications are all reviewed.) Assessment and Plan Assessment: Assessment COPD exacerbation complicated by purulent tracheobronchitis, without araceli pneumonia History of CAD with previous heart catheterization and stent placement Diabetes mellitus Hyperlipidemia Benign essential hypertension Myocardial infarction Pneumonia Sleep apnea syndrome Skin cancer Plan: Plan dated 05/04/2018 The patient actually looks reasonably good. He still is wheezing quite a bit. We will review his medications labs and x-rays. Chest x-ray shows only changes of COPD. White count 13.5 but hemoglobin and hematocrit and platelet count are all normal. Likewise, sodium potassium chloride and carbon dioxide are all normal. Anion gap is normal. BUN and creatinine were 43 and 1.40. Medications are reviewed and will be adjusted accordingly. He should be on albuterol and Atrovent updrafts 4 times a day and when necessary. In addition, he should be on Symbicort 160/4.5, 2 puffs twice a day. He only needs an oral antibiotic and he does need systemic corticosteroids. Additional recommendations and suggestions are forthcoming. Prognosis is guarded. Time with Patient: Greater than 30
[2018-05-04 14:59] LABS: Glucose,Whole Blood 206 mg/dL (75-99)
[2018-05-04 17:09] LABS: Glucose,Whole Blood 168 mg/dL (75-99)
[2018-05-04 19:20] LABS: Glucose,Whole Blood 393 mg/dL (75-99)
[2018-05-04] MEDS: ATORVASTATIN 80 MG TAB PO SCH (19:58)
[2018-05-04 20:45] LABS: Glucose,Whole Blood 390 mg/dL (75-99)
[2018-05-04] MEDS ORDERED: INSULIN DETEMIR 100 UNIT/ML 10 ML VIAL SQ SCH (21:00)
[2018-05-04 23:01] LABS: Glucose,Whole Blood 160 mg/dL (75-99)
[2018-05-05 01:50] LABS: Glucose,Whole Blood 124 mg/dL (75-99)
[2018-05-05 05:10] LABS: Glucose,Whole Blood 236 mg/dL (75-99)
[2018-05-05 06:29] LABS: Glucose,Whole Blood 224 mg/dL (75-99)
[2018-05-05] MEDS: IPRATROPIUM-ALBUTEROL 3 ML NEB INHALATION SCH ×5 (07:02→20:14)
[2018-05-05] MEDS: SYMBICORT 160-4.5 MCG INHALER INHALATION SCH ×2 (07:02→20:14)
[2018-05-05 07:16] LABS: Glucose,Whole Blood 251 mg/dL (75-99)
[2018-05-05 08:01] LABS: Albumin 3.3 g/dL (3.5-5.0); Calcium 8.9 mg/dL (8.4-10.2); Potassium 4.5 mmol/L (3.5-5.1); Total Bilirubin 1.2 mg/dL (0.2-1.3); Total Protein 5.6 g/dL (6.3-8.2)
[2018-05-05 08:02] LABS: Basophils % (A) 0 %; Eosinophils % (A) 0 %; HCT 36.6 % (39.0-53.0); HGB 12.4 gm/dL (13.0-17.5); Lymphocytes # (A) 0.8 k/uL (1.0-4.8); Lymphocytes % (A) 6 %; MCH 30.5 pg (25.0-35.0); MCHC 33.8 g/dL (31.0-37.0); MCV 90.3 fL (80.0-100.0); Mean Platelet Volume 6.2; Monocytes # (A) 0.5 k/uL (0-1.0); Monocytes % (A) 4 %; Neutrophils # (A) 12.6 k/uL (1.3-7.7); Neutrophils % (A) 90 %; Platelet Count 203 k/uL (150-450); RBC 4.05 m/uL (4.30-5.90); RDW 15.3 % (11.5-15.5)
[2018-05-05] MEDS: HEPARIN SODIUM,PORCINE 5,000 UNIT/ML 1 ML VIAL SQ SCH ×2 (08:13→21:11)
[2018-05-05] MEDS: METOPROLOL TARTRATE 50 MG TAB PO SCH ×2 (08:13→21:14)
[2018-05-05] MEDS: DOXYCYCLINE MONOHYDRATE 100 MG CAPSULE PO SCH ×2 (08:13→21:11)
[2018-05-05] MEDS: predniSONE 20 MG TAB PO SCH (08:14)
[2018-05-05] MEDS: FUROSEMIDE 40 MG TAB PO SCH ×2 (08:14→17:36)
[2018-05-05] MEDS: INSULIN ASPART 100 UNIT/ML 1 ML 10 ML VIAL SQ SCH ×6 (08:14→21:11)
[2018-05-05] MEDS: ASPIRIN 81 MG PO SCH (08:14)
[2018-05-05] MEDS: amLODIPine 10 MG TAB PO SCH (08:14)
[2018-05-05] MEDS: LORATADINE 10 MG TAB PO SCH (08:14)
[2018-05-05] MEDS: PANTOPRAZOLE 40 MG TABLET PO SCH (08:14)
[2018-05-05] MEDS: POTASSIUM CHLORIDE ER 20 MEQ TAB.ER PO SCH (08:14)
[2018-05-05] MEDS ORDERED: INSULIN ASPART 100 UNIT/ML 1 ML 10 ML VIAL SQ SCH (09:08)
[2018-05-05 11:22] LABS: Glucose,Whole Blood 307 mg/dL (75-99)
[2018-05-05] MEDS ORDERED: INSULIN ASPART 100 UNIT/ML 1 ML 10 ML VIAL SQ ONE (11:33)
--- NOTE | 2018-05-05 11:41 | P.PN ---
Subjective Progress Note Date: 05/05/18 Principal diagnosis: COPD exacerbation Progress note dated 05/05/2018 73-year-old male that we saw yesterday in consultation with a diagnosis of COPD exacerbation complicated by purulent tracheobronchitis. The patient is feeling better. He is much less short of breath. Not coughing as much. Not producing any phlegm. He does have a history of CAD with previous heart catheterization and stent placement, diabetes mellitus, hyperlipidemia, benign essential hypertension, myocardial infarction, pneumonia, sleep apnea syndrome and skin cancer. The patient is not coughing up any blood. There is no fever or chills. He denies any GI or complaints. The patient's chest x-ray did not show an acute infiltrate or pneumonia. Objective - Vital Signs Vital signs: Vital Signs Temp 98.2 F 05/05/18 05:30 Pulse 82 05/05/18 07:15 Resp 16 05/05/18 05:30 BP 143/95 05/05/18 05:30 Pulse Ox 98 05/05/18 05:30 Intake & Output 05/04/18 05/05/18 05/05/18 18:59 06:59 18:59 Intake Total 1734.633 254.640 Balance 1734.633 254.640 Weight 112 kg Intake: Intake, IV Titration 54.633 54.640 Amount Insulin Regular 100 unit 54.633 54.640 In Sodium Chloride 0.9% 100 ml @ Titrate IV .Q0M [facility] Rx#:[id number] Oral 1680 200 Other: Voiding Method Toilet Toilet # Voids 3 2 # Bowel Movements 0 - Exam No acute distress, oriented 3. HEENT examination is grossly unremarkable. Mucous membranes are moist. No oral lesions. Neck supple. Full range of motion. No adenopathy thyromegaly or neck vein distention. Cardiovascular examination reveals regular rhythm rate. S1-S2 normal. No S3 or S4. No discernible murmur noted. Lungs reveal mild coarse expiratory rhonchi and high-pitched wheezes. Breath sounds are equal bilaterally but diminished throughout. There is prolongation on forced maneuver. No crackles appreciated. Breath sounds are improved compared to yesterday's exam.. Abdomen soft bowel sounds are heard. No masses or tenderness. Extremities are intact. No cyanosis clubbing or edema. Skin is without rash or lesion. Neurologic examination is brief but nonfocal. - Labs CBC & Chem 7: 05/05/18 07:15 05/05/18 07:15 Labs: Abnormal Lab Results - Last 24 Hours (Table) 05/04/18 05/04/18 05/04/18 Range/Units 05:55 13:03 14:57 WBC (3.8-10.6) k/uL RBC (4.30-5.90) m/uL Hgb (13.0-17.5) gm/dL Hct (39.0-53.0) % Neutrophils # (1.3-7.7) k/uL Lymphocytes # (1.0-4.8) k/uL Sodium (137-145) mmol/L Carbon Dioxide (22-30) mmol/L BUN (9-20) mg/dL Creatinine (0.66-1.25) mg/dL Glucose (74-99) mg/dL POC Glucose (mg/dL) 221 H 206 H (75-99) mg/dL Hemoglobin A1c 10.4 H (4.0-6.0) % Total Protein (6.3-8.2) g/dL Albumin (3.5-5.0) g/dL 05/04/18 05/04/18 05/04/18 Range/Units 17:07 19:18 20:43 WBC (3.8-10.6) k/uL RBC (4.30-5.90) m/uL Hgb (13.0-17.5) gm/dL Hct (39.0-53.0) % Neutrophils # (1.3-7.7) k/uL Lymphocytes # (1.0-4.8) k/uL Sodium (137-145) mmol/L Carbon Dioxide (22-30) mmol/L BUN (9-20) mg/dL Creatinine (0.66-1.25) mg/dL Glucose (74-99) mg/dL POC Glucose (mg/dL) 168 H 393 H 390 H (75-99) mg/dL Hemoglobin A1c (4.0-6.0) % Total Protein (6.3-8.2) g/dL Albumin (3.5-5.0) g/dL 05/04/18 05/05/18 05/05/18 Range/Units 22:59 01:49 05:08 WBC (3.8-10.6) k/uL RBC (4.30-5.90) m/uL Hgb (13.0-17.5) gm/dL Hct (39.0-53.0) % Neutrophils # (1.3-7.7) k/uL Lymphocytes # (1.0-4.8) k/uL Sodium (137-145) mmol/L Carbon Dioxide (22-30) mmol/L BUN (9-20) mg/dL Creatinine (0.66-1.25) mg/dL Glucose (74-99) mg/dL POC Glucose (mg/dL) 160 H 124 H 236 H (75-99) mg/dL Hemoglobin A1c (4.0-6.0) % Total Protein (6.3-8.2) g/dL Albumin (3.5-5.0) g/dL 05/05/18 05/05/18 05/05/18 Range/Units 06:27 07:13 07:15 WBC 14.0 H (3.8-10.6) k/uL RBC 4.05 L (4.30-5.90) m/uL Hgb 12.4 L (13.0-17.5) gm/dL Hct 36.6 L (39.0-53.0) % Neutrophils # 12.6 H (1.3-7.7) k/uL Lymphocytes # 0.8 L (1.0-4.8) k/uL Sodium (137-145) mmol/L Carbon Dioxide (22-30) mmol/L BUN (9-20) mg/dL Creatinine (0.66-1.25) mg/dL Glucose (74-99) mg/dL POC Glucose (mg/dL) 224 H 251 H (75-99) mg/dL Hemoglobin A1c (4.0-6.0) % Total Protein (6.3-8.2) g/dL Albumin (3.5-5.0) g/dL 05/05/18 05/05/18 Range/Units 07:15 11:21 WBC (3.8-10.6) k/uL RBC (4.30-5.90) m/uL Hgb (13.0-17.5) gm/dL Hct (39.0-53.0) % Neutrophils # (1.3-7.7) k/uL Lymphocytes # (1.0-4.8) k/uL Sodium 134 L (137-145) mmol/L Carbon Dioxide 32 H (22-30) mmol/L BUN 47 H (9-20) mg/dL Creatinine 1.39 H (0.66-1.25) mg/dL Glucose 237 H (74-99) mg/dL POC Glucose (mg/dL) 307 H (75-99) mg/dL Hemoglobin A1c (4.0-6.0) % Total Protein 5.6 L (6.3-8.2) g/dL Albumin 3.3 L (3.5-5.0) g/dL Assessment and Plan Assessment: Assessment COPD exacerbation complicated by purulent tracheobronchitis, without araceli pneumonia History of CAD with previous heart catheterization and stent placement Diabetes mellitus Hyperlipidemia Benign essential hypertension Myocardial infarction Pneumonia Sleep apnea syndrome Skin cancer Plan: Plan dated 05/04/2018 The patient actually looks reasonably good. He still is wheezing quite a bit. We will review his medications labs and x-rays. Chest x-ray shows only changes of COPD. White count 13.5 but hemoglobin and hematocrit and platelet count are all normal. Likewise, sodium potassium chloride and carbon dioxide are all normal. Anion gap is normal. BUN and creatinine were 43 and 1.40. Medications are reviewed and will be adjusted accordingly. He should be on albuterol and Atrovent updrafts 4 times a day and when necessary. In addition, he should be on Symbicort 160/4.5, 2 puffs twice a day. He only needs an oral antibiotic and he does need systemic corticosteroids. Additional recommendations and suggestions are forthcoming. Prognosis is guarded. Plan dated 05/05/2018 The patient seems to be improving and responding to therapy. He seems less short of breath. Less cough and less wheezes. The patient just get short of breath when he exerts himself. He probably need another day or 2 here in the hospital. White count is 14 hemoglobin 12.4 and hematocrit 36.6. Platelet count is normal. Sodium 134, potassium 4.5, chloride 98, and CO2 32. BUN and creatinine were 47 and 1.39. Microbiology is negative or pending. Chest x-ray did not show an acute infiltrate. The patient's medications were adjusted accordingly. We will continue to follow. Prognosis is guarded. Time with Patient: Greater than 30
[2018-05-05 13:15] VITALS: BMI 35.4
[2018-05-05 15:54] LABS: Glucose,Whole Blood 291 mg/dL (75-99)
--- NOTE | 2018-05-05 16:17 | P.PN ---
Subjective Progress Note Date: 05/05/18 73-year-old be due obese male one of Dr. Isbell patient with past medical history of COPD, CAD, and obstructive sleep apnea who was in the hospital last time in September 2017 for COPD exacerbation. Patient seen Dr. Rodriguez pulmonary on regular basis also seeing cardiology regular basis patient had angioplasty and stent placement in the past is still seen cardiology for secondary prevention regularly. Patient presented to demurs department at [facility] with complaining of worsening shortness of breath with cough productive Dr. phlegm along with tightness and wheezes with severe hypoxia symptoms become much worse over the last 24 hours patient had failed outpatient treatment. Patient ended up coming to the emergency department was seen and evaluated was very tachypneic mildly hypoxic despite doing continue to be symptomatic. As he was treated in the emergency department patient developed to have chest pain and worsening shortness of breath with mild palpitation. CK with troponin was negative. Patient was started on IV antibiotics along with steroid and updraft treatment [id number] and admitted to the hospital. 05/05: Patient is feeling a bit better today he continues to have some coughing, minimal shortness breath, he has no fever or chills, he has no abdominal pain, he continues to run high and his blood glucose level, we will adjust his Levemir to 42 units at bedtime and increase his NovoLog to 15 units plus a sliding scale. Objective - Vital Signs Vital signs: Vital Signs Temp 98.2 F 05/05/18 05:30 Pulse 82 05/05/18 07:15 Resp 16 05/05/18 05:30 BP 143/95 05/05/18 05:30 Pulse Ox 98 05/05/18 05:30 Intake & Output 05/04/18 05/05/18 05/05/18 18:59 06:59 18:59 Intake Total 1734.633 254.640 Balance 1734.633 254.640 Weight 112 kg Intake: Intake, IV Titration 54.633 54.640 Amount Insulin Regular 100 unit 54.633 54.640 In Sodium Chloride 0.9% 100 ml @ Titrate IV .Q0M [facility] Rx#:[id number] Oral 1680 200 Other: Voiding Method Toilet # Voids 3 2 # Bowel Movements 0 - Exam General Appearance: Alert, cooperative, no distress, mildly overweight. Neck HEENT: Supple, no lymphadenopathy, no thyroid enlargement, no carotid bruits. Lungs: Decreased expansion with decreased breath sound bilaterally positive fine rhonchi with mild crackles in the bases positive mild inspiratory expiratory wheezes. Chest Wall: no tenderness and no deformity was found on exam, no costochondral pain or discomfort. Heart: Regular rate and rhythm, S1, S2 normal, positive murmur no rub or gallop Back: Symmetric, no curvature, ROM normal, no CVA tenderness. Abdomen: Soft, non-tender, bowel sounds active all four quadrants, no masses, no organomegaly. 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 Pulses: 2+ and symmetric. Skin: Skin color, texture, tugor normal, no rashes or lesions. Neurologic: Alert oriented x3 cranial nerves II through XII intact, no motor deficit, no abnormal balance or gait. - Labs CBC & Chem 7: 05/05/18 07:15 05/05/18 07:15 Labs: Abnormal Lab Results - Last 24 Hours (Table) 05/04/18 05/04/18 05/04/18 Range/Units 05:55 08:44 11:02 WBC (3.8-10.6) k/uL RBC (4.30-5.90) m/uL Hgb (13.0-17.5) gm/dL Hct (39.0-53.0) % Neutrophils # (1.3-7.7) k/uL Lymphocytes # (1.0-4.8) k/uL Sodium (137-145) mmol/L Carbon Dioxide (22-30) mmol/L BUN (9-20) mg/dL Creatinine (0.66-1.25) mg/dL Glucose (74-99) mg/dL POC Glucose (mg/dL) 285 H 300 H (75-99) mg/dL Hemoglobin A1c 10.4 H (4.0-6.0) % Total Protein (6.3-8.2) g/dL Albumin (3.5-5.0) g/dL 05/04/18 05/04/18 05/04/18 Range/Units 13:03 14:57 17:07 WBC (3.8-10.6) k/uL RBC (4.30-5.90) m/uL Hgb (13.0-17.5) gm/dL Hct (39.0-53.0) % Neutrophils # (1.3-7.7) k/uL Lymphocytes # (1.0-4.8) k/uL Sodium (137-145) mmol/L Carbon Dioxide (22-30) mmol/L BUN (9-20) mg/dL Creatinine (0.66-1.25) mg/dL Glucose (74-99) mg/dL POC Glucose (mg/dL) 221 H 206 H 168 H (75-99) mg/dL Hemoglobin A1c (4.0-6.0) % Total Protein (6.3-8.2) g/dL Albumin (3.5-5.0) g/dL 05/04/18 05/04/18 05/04/18 Range/Units 19:18 20:43 22:59 WBC (3.8-10.6) k/uL RBC (4.30-5.90) m/uL Hgb (13.0-17.5) gm/dL Hct (39.0-53.0) % Neutrophils # (1.3-7.7) k/uL Lymphocytes # (1.0-4.8) k/uL Sodium (137-145) mmol/L Carbon Dioxide (22-30) mmol/L BUN (9-20) mg/dL Creatinine (0.66-1.25) mg/dL Glucose (74-99) mg/dL POC Glucose (mg/dL) 393 H 390 H 160 H (75-99) mg/dL Hemoglobin A1c (4.0-6.0) % Total Protein (6.3-8.2) g/dL Albumin (3.5-5.0) g/dL 05/05/18 05/05/18 05/05/18 Range/Units 01:49 05:08 06:27 WBC (3.8-10.6) k/uL RBC (4.30-5.90) m/uL Hgb (13.0-17.5) gm/dL Hct (39.0-53.0) % Neutrophils # (1.3-7.7) k/uL Lymphocytes # (1.0-4.8) k/uL Sodium (137-145) mmol/L Carbon Dioxide (22-30) mmol/L BUN (9-20) mg/dL Creatinine (0.66-1.25) mg/dL Glucose (74-99) mg/dL POC Glucose (mg/dL) 124 H 236 H 224 H (75-99) mg/dL Hemoglobin A1c (4.0-6.0) % Total Protein (6.3-8.2) g/dL Albumin (3.5-5.0) g/dL 05/05/18 05/05/18 05/05/18 Range/Units 07:13 07:15 07:15 WBC 14.0 H (3.8-10.6) k/uL RBC 4.05 L (4.30-5.90) m/uL Hgb 12.4 L (13.0-17.5) gm/dL Hct 36.6 L (39.0-53.0) % Neutrophils # 12.6 H (1.3-7.7) k/uL Lymphocytes # 0.8 L (1.0-4.8) k/uL Sodium 134 L (137-145) mmol/L Carbon Dioxide 32 H (22-30) mmol/L BUN 47 H (9-20) mg/dL Creatinine 1.39 H (0.66-1.25) mg/dL Glucose 237 H (74-99) mg/dL POC Glucose (mg/dL) 251 H (75-99) mg/dL Hemoglobin A1c (4.0-6.0) % Total Protein 5.6 L (6.3-8.2) g/dL Albumin 3.3 L (3.5-5.0) g/dL Assessment and Plan Assessment: Assessment and Plan Plan: 1 acute respiratory failure: Combination of COPD exacerbation, severe bronchitis and cardiac as well. We'll try to treat underlying disease continue O2 continue updraft treatment. 2 COPD exacerbation: Patient will be on Solu-Medrol, mixup with graft treatment along with Symbicort, will consult pulmonary. 3 severe bronchitis: Patient was started on doxycycline 100 mg twice a day. 4 chest pain: Atypical, with patient's current history we'll consult cardiology CK with troponin 3 will be done echocardiogram will be repeated less is done last 6 months and patient might require to go for further intervention if abnormal testing found otherwise stress test can be arranged as an outpatient when patient is more stable. 5 type 2 diabetes on insulin: With blood sugar been high patient was started on insulin drip we'll switch him back to Levemir 42 units subcutaneous at bedtime with 15 units of NovoLog before meals meals plus a sliding scale and stop insulin drip 2 hours after starting some cutaneous injection. 6 CAD: Has been doing well on metoprolol. 7 CHF: Mostly diastolic dysfunction, patient will be on Lasix with metoprolol. 8 hypertension: Remain on amlodipine, and metoprolol. 9 hyperlipidemia: Still on Lipitor 80 mg daily. 10 severe GERD/GI prophylaxis: Patient will be on pantoprazole daily. 11 DVT prophylaxis: Continue heparin 5000 units subcutaneous twice a day. 12 acute kidney injury on chronic kidney disease: Repeat BUN/creatinine next 24 hours continue gentle hydration as well.
[2018-05-05 16:57] LABS: Glucose,Whole Blood 280 mg/dL (75-99)
[2018-05-05 20:12] LABS: Glucose,Whole Blood 318 mg/dL (75-99)
[2018-05-05] MEDS ORDERED: INSULIN DETEMIR 100 UNIT/ML 10 ML VIAL SQ SCH (21:00)
[2018-05-05] MEDS: ATORVASTATIN 80 MG TAB PO SCH (21:11)
[2018-05-05] MEDS: INSULIN DETEMIR 100 UNIT/ML 10 ML VIAL SQ SCH (21:11)
[2018-05-06] MEDS: SYMBICORT 160-4.5 MCG INHALER INHALATION SCH ×2 (07:00→18:42)
[2018-05-06] MEDS: IPRATROPIUM-ALBUTEROL 3 ML NEB INHALATION SCH ×4 (07:00→18:41)
[2018-05-06 07:09] LABS: Glucose,Whole Blood 89 mg/dL (75-99)
[2018-05-06 07:10] LABS: Basophils % (A) 0 %; Eosinophils % (A) 0 %; HCT 38.1 % (39.0-53.0); HGB 12.9 gm/dL (13.0-17.5); Lymphocytes # (A) 1.3 k/uL (1.0-4.8); Lymphocytes % (A) 10 %; MCH 30.2 pg (25.0-35.0); MCHC 33.9 g/dL (31.0-37.0); MCV 88.9 fL (80.0-100.0); Mean Platelet Volume 6.7; Monocytes # (A) 0.7 k/uL (0-1.0); Monocytes % (A) 5 %; Neutrophils # (A) 10.6 k/uL (1.3-7.7); Neutrophils % (A) 84 %; Platelet Count 227 k/uL (150-450); RBC 4.28 m/uL (4.30-5.90); RDW 14.9 % (11.5-15.5); WBC 12.7 k/uL (3.8-10.6)
[2018-05-06] MEDS: INSULIN ASPART 100 UNIT/ML 1 ML 10 ML VIAL SQ SCH ×7 (07:22→21:33)
[2018-05-06 07:30] LABS: Albumin 3.4 g/dL (3.5-5.0); Potassium 3.6 mmol/L (3.5-5.1); Total Bilirubin 1.1 mg/dL (0.2-1.3); Total Protein 5.8 g/dL (6.3-8.2)
[2018-05-06] MEDS: DOXYCYCLINE MONOHYDRATE 100 MG CAPSULE PO SCH ×2 (07:45→21:27)
[2018-05-06] MEDS: ASPIRIN 81 MG PO SCH (07:45)
[2018-05-06] MEDS: FUROSEMIDE 40 MG TAB PO SCH ×2 (07:45→17:32)
[2018-05-06] MEDS: PANTOPRAZOLE 40 MG TABLET PO SCH (07:45)
[2018-05-06] MEDS: amLODIPine 10 MG TAB PO SCH (07:45)
[2018-05-06] MEDS: HEPARIN SODIUM,PORCINE 5,000 UNIT/ML 1 ML VIAL SQ SCH ×2 (07:45→21:32)
[2018-05-06] MEDS: METOPROLOL TARTRATE 50 MG TAB PO SCH ×2 (07:46→21:27)
[2018-05-06] MEDS: POTASSIUM CHLORIDE ER 20 MEQ TAB.ER PO SCH (07:47)
[2018-05-06] MEDS: predniSONE 20 MG TAB PO SCH (07:48)
[2018-05-06] MEDS: LORATADINE 10 MG TAB PO SCH (10:54)
[2018-05-06 11:25] LABS: Glucose,Whole Blood 90 mg/dL (75-99)
--- NOTE | 2018-05-06 11:29 | P.PN ---
Subjective Progress Note Date: 05/06/18 Principal diagnosis: COPD exacerbation Progress note dated 05/05/2018 73-year-old male that we saw yesterday in consultation with a diagnosis of COPD exacerbation complicated by purulent tracheobronchitis. The patient is feeling better. He is much less short of breath. Not coughing as much. Not producing any phlegm. He does have a history of CAD with previous heart catheterization and stent placement, diabetes mellitus, hyperlipidemia, benign essential hypertension, myocardial infarction, pneumonia, sleep apnea syndrome and skin cancer. The patient is not coughing up any blood. There is no fever or chills. He denies any GI or complaints. The patient's chest x-ray did not show an acute infiltrate or pneumonia. Progress note dated 05/06/2018 73-year-old male seen in consultation for COPD exacerbation, complicated by purulent tracheobronchitis. The patient is doing much better. Yesterday, we told the patient he could probably be discharged home today. In addition to COPD, he has a history of CAD with previous heart catheterization and stent placement, diabetes, hyperlipidemia, hypertension, myocardial infarction, pneumonia, sleep apnea syndrome, and skin cancer. The patient states that his breathing is much improved. Less cough wheezing and shortness of breath. Still but short of breath with exertion. Not coughing up any blood. No fever or chills. Objective - Vital Signs Vital signs: Vital Signs Temp 97.6 F 05/06/18 06:05 Pulse 80 05/06/18 11:24 Resp 15 05/06/18 06:05 BP 146/79 05/06/18 06:05 Pulse Ox 98 05/06/18 06:05 Intake & Output 05/05/18 05/06/18 05/06/18 18:59 06:59 18:59 Weight 112 kg 112.5 kg Other: Voiding Method Toilet Toilet Toilet # Voids 1 - Exam No acute distress, oriented 3. HEENT examination is grossly unremarkable. Mucous membranes are moist. No oral lesions. Neck supple. Full range of motion. No adenopathy thyromegaly or neck vein distention. Cardiovascular examination reveals regular rhythm rate. S1-S2 normal. No S3 or S4. No discernible murmur noted. Lungs reveal mild expiratory wheezes. A few scattered rhonchi are noted. Breath sounds are equal bilaterally. There are diminished throughout. There is prolongation on forced maneuver. Breath sounds are much improved though. Abdomen soft bowel sounds are heard. No masses or tenderness. Extremities are intact. No cyanosis clubbing or edema. Skin is without rash or lesion. Neurologic examination is brief but nonfocal. - Labs CBC & Chem 7: 05/06/18 06:41 05/06/18 06:41 Labs: Abnormal Lab Results - Last 24 Hours (Table) 05/05/18 05/05/18 05/05/18 Range/Units 15:52 16:56 20:10 WBC (3.8-10.6) k/uL RBC (4.30-5.90) m/uL Hgb (13.0-17.5) gm/dL Hct (39.0-53.0) % Neutrophils # (1.3-7.7) k/uL Carbon Dioxide (22-30) mmol/L BUN (9-20) mg/dL Creatinine (0.66-1.25) mg/dL POC Glucose (mg/dL) 291 H 280 H 318 H (75-99) mg/dL Total Protein (6.3-8.2) g/dL Albumin (3.5-5.0) g/dL 05/06/18 05/06/18 Range/Units 06:41 06:41 WBC 12.7 H (3.8-10.6) k/uL RBC 4.28 L (4.30-5.90) m/uL Hgb 12.9 L (13.0-17.5) gm/dL Hct 38.1 L (39.0-53.0) % Neutrophils # 10.6 H (1.3-7.7) k/uL Carbon Dioxide 31 H (22-30) mmol/L BUN 42 H (9-20) mg/dL Creatinine 1.32 H (0.66-1.25) mg/dL POC Glucose (mg/dL) (75-99) mg/dL Total Protein 5.8 L (6.3-8.2) g/dL Albumin 3.4 L (3.5-5.0) g/dL Assessment and Plan Assessment: Assessment COPD exacerbation complicated by purulent tracheobronchitis, without araceli pneumonia History of CAD with previous heart catheterization and stent placement Diabetes mellitus Hyperlipidemia Benign essential hypertension Myocardial infarction Pneumonia Sleep apnea syndrome Skin cancer Plan: Plan dated 05/04/2018 The patient actually looks reasonably good. He still is wheezing quite a bit. We will review his medications labs and x-rays. Chest x-ray shows only changes of COPD. White count 13.5 but hemoglobin and hematocrit and platelet count are all normal. Likewise, sodium potassium chloride and carbon dioxide are all normal. Anion gap is normal. BUN and creatinine were 43 and 1.40. Medications are reviewed and will be adjusted accordingly. He should be on albuterol and Atrovent updrafts 4 times a day and when necessary. In addition, he should be on Symbicort 160/4.5, 2 puffs twice a day. He only needs an oral antibiotic and he does need systemic corticosteroids. Additional recommendations and suggestions are forthcoming. Prognosis is guarded. Plan dated 05/05/2018 The patient seems to be improving and responding to therapy. He seems less short of breath. Less cough and less wheezes. The patient just get short of breath when he exerts himself. He probably need another day or 2 here in the hospital. White count is 14 hemoglobin 12.4 and hematocrit 36.6. Platelet count is normal. Sodium 134, potassium 4.5, chloride 98, and CO2 32. BUN and creatinine were 47 and 1.39. Microbiology is negative or pending. Chest x-ray did not show an acute infiltrate. The patient's medications were adjusted accordingly. We will continue to follow. Prognosis is guarded. Plan dated 05/06/2018 In my opinion, the patient could be considered for discharge. The patient's white count is 12.7 hemoglobin 12.9 hematocrit 38.1 and platelet count is normal. BUN and creatinine were 42 and 1.32 respectively. CO2 concentration on the electrolytes today show it to be 31. Microbiology is negative. No recent x-ray has been done. I did relate to the nurse that he could be considered for discharge. I did specify above medications on discharge. He'll follow with us in the office. No additional recommendations are made. Time with Patient: Less than 30
--- NOTE | 2018-05-06 13:48 | P.PN ---
Subjective Progress Note Date: 05/06/18 73-year-old be due obese male one of Dr. Isbell patient with past medical history of COPD, CAD, and obstructive sleep apnea who was in the hospital last time in September 2017 for COPD exacerbation. Patient seen Dr. Rodriguez pulmonary on regular basis also seeing cardiology regular basis patient had angioplasty and stent placement in the past is still seen cardiology for secondary prevention regularly. Patient presented to demurs department at [facility] with complaining of worsening shortness of breath with cough productive DrMitzi phlegm along with tightness and wheezes with severe hypoxia symptoms become much worse over the last 24 hours patient had failed outpatient treatment. Patient ended up coming to the emergency department was seen and evaluated was very tachypneic mildly hypoxic despite doing continue to be symptomatic. As he was treated in the emergency department patient developed to have chest pain and worsening shortness of breath with mild palpitation. CK with troponin was negative. Patient was started on IV antibiotics along with steroid and updraft treatment [id number] and admitted to the hospital. 05/05: Patient is feeling a bit better today he continues to have some coughing, minimal shortness breath, he has no fever or chills, he has no abdominal pain, he continues to run high and his blood glucose level, we will adjust his Levemir to 42 units at bedtime and increase his NovoLog to 15 units plus a sliding scale. 05/06: Patient is feeling better continue to have occasional wheezing, occasional cough, he has less shortness breath, he has no abdominal pain, nausea , he had one episode of diarrhea yesterday but is feeling better today he has no cramps in his leg he has no edema. The plan is to discharge him home tomorrow morning. Objective - Vital Signs Vital signs: Vital Signs Temp 97.6 F 05/06/18 06:05 Pulse 78 05/06/18 07:15 Resp 15 05/06/18 06:05 BP 146/79 05/06/18 06:05 Pulse Ox 98 05/06/18 06:05 Intake & Output 05/05/18 05/06/18 05/06/18 18:59 06:59 18:59 Weight 112 kg 112.5 kg Other: Voiding Method Toilet Toilet Toilet # Voids 1 - Exam General Appearance: Alert, cooperative, no distress, mildly overweight. Neck HEENT: Supple, no lymphadenopathy, no thyroid enlargement, no carotid bruits. Lungs: Decreased expansion with decreased breath sound bilaterally positive fine rhonchi with mild crackles in the bases positive mild inspiratory expiratory wheezes. Chest Wall: no tenderness and no deformity was found on exam, no costochondral pain or discomfort. Heart: Regular rate and rhythm, S1, S2 normal, positive murmur no rub or gallop Back: Symmetric, no curvature, ROM normal, no CVA tenderness. Abdomen: Soft, non-tender, bowel sounds active all four quadrants, no masses, no organomegaly. 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 Pulses: 2+ and symmetric. Skin: Skin color, texture, tugor normal, no rashes or lesions. Neurologic: Alert oriented x3 cranial nerves II through XII intact, no motor deficit, no abnormal balance or gait. - Labs CBC & Chem 7: 05/06/18 06:41 05/06/18 06:41 Labs: Abnormal Lab Results - Last 24 Hours (Table) 05/05/18 05/05/18 05/05/18 Range/Units 11:21 15:52 16:56 WBC (3.8-10.6) k/uL RBC (4.30-5.90) m/uL Hgb (13.0-17.5) gm/dL Hct (39.0-53.0) % Neutrophils # (1.3-7.7) k/uL Carbon Dioxide (22-30) mmol/L BUN (9-20) mg/dL Creatinine (0.66-1.25) mg/dL POC Glucose (mg/dL) 307 H 291 H 280 H (75-99) mg/dL Total Protein (6.3-8.2) g/dL Albumin (3.5-5.0) g/dL 05/05/18 05/06/18 05/06/18 Range/Units 20:10 06:41 06:41 WBC 12.7 H (3.8-10.6) k/uL RBC 4.28 L (4.30-5.90) m/uL Hgb 12.9 L (13.0-17.5) gm/dL Hct 38.1 L (39.0-53.0) % Neutrophils # 10.6 H (1.3-7.7) k/uL Carbon Dioxide 31 H (22-30) mmol/L BUN 42 H (9-20) mg/dL Creatinine 1.32 H (0.66-1.25) mg/dL POC Glucose (mg/dL) 318 H (75-99) mg/dL Total Protein 5.8 L (6.3-8.2) g/dL Albumin 3.4 L (3.5-5.0) g/dL Assessment and Plan Assessment: Assessment and Plan Plan: 1 acute respiratory failure: Combination of COPD exacerbation, severe bronchitis. Continue DuoNeb 3 mL nebulization 4 times every day, continue doxycycline 100 mg orally twice every day, continue prednisone 20 mg orally once every day, continue oxygen support. Continue patient on Symbicort inhaler twice every day as well. 2 COPD exacerbation: Patient will be maintained on prednisone, mixup with graft treatment along with Symbicort. 3 severe bronchitis: Patient was started on doxycycline 100 mg twice a day. 4 chest pain: Atypical, with patient's current history we'll consult cardiology CK with troponin 3 will be done echocardiogram will be repeated less is done last 6 months and patient might require to go for further intervention if abnormal testing found otherwise stress test can be arranged as an outpatient when patient is more stable. 5 type 2 diabetes on insulin: With blood sugar been high patient was started on insulin drip we'll switch him back to Levemir 42 units subcutaneous at bedtime with 15 units of NovoLog before meals meals plus a sliding scale and stop insulin drip 2 hours after starting some cutaneous injection. 6 CAD: Has been doing well on metoprolol. 7 CHF: Mostly diastolic dysfunction, patient will be on Lasix with metoprolol. 8 hypertension: Remain on amlodipine 10 minute gram orally once every day as well as metoprolol 50 mg orally twice every day. 9 hyperlipidemia: Still on Lipitor 80 mg daily. 10 severe GERD/GI prophylaxis: Patient will be on pantoprazole daily. 11 DVT prophylaxis: Continue heparin 5000 units subcutaneous twice a day. 12 acute kidney injury on chronic kidney disease: Repeat BUN/creatinine next 24 hours continue gentle hydration as well. 13. Home tomorrow morning.
[2018-05-06 14:55] VITALS: RESP 16
[2018-05-06 16:41] LABS: Glucose,Whole Blood 143 mg/dL (75-99)
[2018-05-06 20:03] LABS: Glucose,Whole Blood 202 mg/dL (75-99)
[2018-05-06] MEDS: ATORVASTATIN 80 MG TAB PO SCH (21:27)
[2018-05-06] MEDS: INSULIN DETEMIR 100 UNIT/ML 10 ML VIAL SQ SCH (21:32)
[2018-05-07 06:49] LABS: Glucose,Whole Blood 76 mg/dL (75-99)
[2018-05-07] MEDS: INSULIN ASPART 100 UNIT/ML 1 ML 10 ML VIAL SQ SCH ×4 (07:04→12:20)
[2018-05-07] MEDS: IPRATROPIUM-ALBUTEROL 3 ML NEB INHALATION SCH ×2 (07:05→11:06)
[2018-05-07] MEDS: SYMBICORT 160-4.5 MCG INHALER INHALATION SCH (07:06)
[2018-05-07 07:19] VITALS: BP 158/79; TEMP 97.1
[2018-05-07 07:34] LABS: Basophils % (A) 0 %; Eosinophils % (A) 0 %; HCT 40.1 % (39.0-53.0); HGB 13.4 gm/dL (13.0-17.5); Lymphocytes % (A) 21 %; MCHC 33.4 g/dL (31.0-37.0); MCV 89.9 fL (80.0-100.0); Mean Platelet Volume 6.5; Monocytes # (A) 0.9 k/uL (0-1.0); Monocytes % (A) 6 %; Neutrophils # (A) 9.8 k/uL (1.3-7.7); Neutrophils % (A) 70 %; Platelet Count 282 k/uL (150-450); RBC 4.45 m/uL (4.30-5.90); RDW 15.5 % (11.5-15.5); WBC 13.9 k/uL (3.8-10.6)
[2018-05-07] MEDS: amLODIPine 10 MG TAB PO SCH (07:34)
[2018-05-07] MEDS: ASPIRIN 81 MG PO SCH (07:34)
[2018-05-07] MEDS: PANTOPRAZOLE 40 MG TABLET PO SCH (07:34)
[2018-05-07] MEDS: HEPARIN SODIUM,PORCINE 5,000 UNIT/ML 1 ML VIAL SQ SCH (07:35)
[2018-05-07] MEDS: LORATADINE 10 MG TAB PO SCH (07:35)
[2018-05-07] MEDS: FUROSEMIDE 40 MG TAB PO SCH (07:35)
[2018-05-07] MEDS: DOXYCYCLINE MONOHYDRATE 100 MG CAPSULE PO SCH (07:35)
[2018-05-07] MEDS: METOPROLOL TARTRATE 50 MG TAB PO SCH (07:36)
[2018-05-07] MEDS: predniSONE 20 MG TAB PO SCH (07:36)
[2018-05-07] MEDS: POTASSIUM CHLORIDE ER 20 MEQ TAB.ER PO SCH (07:36)
[2018-05-07 07:55] LABS: Calcium 9.3 mg/dL (8.4-10.2); Potassium 3.8 mmol/L (3.5-5.1)
[2018-05-07 11:24] LABS: Glucose,Whole Blood 142 mg/dL (75-99)
[2018-05-07 11:34] VITALS: PULSE 76
--- NOTE | 2018-05-07 15:07 | P.PN ---
Subjective Progress Note Date: 05/07/18 Principal diagnosis: Acute exacerbation of chronic obstructive pulmonary disease complicated by purulent tracheobronchitis. Pulmonary consultation dated 05/04/2018 This is a 73-year-old male with a known history of COPD. He also has a history of CAD sleep apnea syndrome as well. The patient presents with 2 days of increasing and progressive shortness of breath. The patient also has significant cough chest tightness wheezing and some phlegm production. No chest pain or chest discomfort. No fever chills nausea vomiting or diarrhea. The patient typically sees Dr. Rodriguez in the office. The patient states that he is feeling better after having been seen in the emergency department on May 03. He is certainly not back to baseline. He denies any hemoptysis. No fever or chills. Chest x-ray was negative for anything acute. The patient has a history of CAD COPD diabetes hyperlipidemia hypertension myocardial infarction pneumonia sleep apnea syndrome and skin cancer. He's had a heart catheterization with stent placement. Progress note dated 05/05/2018 73-year-old male that we saw yesterday in consultation with a diagnosis of COPD exacerbation complicated by purulent tracheobronchitis. The patient is feeling better. He is much less short of breath. Not coughing as much. Not producing any phlegm. He does have a history of CAD with previous heart catheterization and stent placement, diabetes mellitus, hyperlipidemia, benign essential hypertension, myocardial infarction, pneumonia, sleep apnea syndrome and skin cancer. The patient is not coughing up any blood. There is no fever or chills. He denies any GI or complaints. The patient's chest x-ray did not show an acute infiltrate or pneumonia. Progress note dated 05/06/2018 73-year-old male seen in consultation for COPD exacerbation, complicated by purulent tracheobronchitis. The patient is doing much better. Yesterday, we told the patient he could probably be discharged home today. In addition to COPD, he has a history of CAD with previous heart catheterization and stent placement, diabetes, hyperlipidemia, hypertension, myocardial infarction, pneumonia, sleep apnea syndrome, and skin cancer. The patient states that his breathing is much improved. Less cough wheezing and shortness of breath. Still but short of breath with exertion. Not coughing up any blood. No fever or chills. The patient is seen again today 05/07/2018 in follow-up on the regular medical floor. He is currently sitting up in chair at the bedside. He is awake and alert in no acute distress. He is currently back to his baseline. He is maintaining good O2 saturations in the high 90s on room air. His been afebrile. Hemodynamically stable. White count 13.9. Hemoglobin 13.4. Creatinine 1.21. He is hoping to go home today. Objective - Vital Signs Vital signs: Vital Signs Temp 97.1 F L 05/07/18 07:18 Pulse 76 05/07/18 11:20 Resp 16 05/07/18 07:18 BP 158/79 05/07/18 07:18 Pulse Ox 99 05/07/18 07:18 Intake & Output 05/06/18 05/07/18 05/07/18 18:59 06:59 18:59 Intake Total 1100 Balance 1100 Weight 109 kg 109 kg Intake: Oral 1100 Other: Voiding Method Toilet Toilet Toilet # Voids 3 1 4 - Exam No acute distress, oriented 3. HEENT examination is grossly unremarkable. Mucous membranes are moist. No oral lesions. Neck supple. Full range of motion. No adenopathy thyromegaly or neck vein distention. Cardiovascular examination reveals regular rhythm rate. S1-S2 normal. No S3 or S4. No discernible murmur noted. Lungs reveal mild expiratory wheezes. A few scattered rhonchi are noted. Breath sounds are equal bilaterally. There are diminished throughout. There is prolongation on forced maneuver. Breath sounds are much improved though. Abdomen soft bowel sounds are heard. No masses or tenderness. Extremities are intact. No cyanosis clubbing or edema. Skin is without rash or lesion. Neurologic examination is brief but nonfocal. - Labs CBC & Chem 7: 05/07/18 07:17 05/07/18 07:17 Labs: Abnormal Lab Results - Last 24 Hours (Table) 05/06/18 05/06/18 05/07/18 Range/Units 16:39 20:01 07:17 WBC 13.9 H (3.8-10.6) k/uL Neutrophils # 9.8 H (1.3-7.7) k/uL BUN (9-20) mg/dL Glucose (74-99) mg/dL POC Glucose (mg/dL) 143 H 202 H (75-99) mg/dL 05/07/18 05/07/18 Range/Units 07:17 11:22 WBC (3.8-10.6) k/uL Neutrophils # (1.3-7.7) k/uL BUN 34 H (9-20) mg/dL Glucose 69 L (74-99) mg/dL POC Glucose (mg/dL) 142 H (75-99) mg/dL Assessment and Plan Assessment: Assessment COPD exacerbation complicated by purulent tracheobronchitis, without araceli pneumonia History of CAD with previous heart catheterization and stent placement Diabetes mellitus Hyperlipidemia Benign essential hypertension Myocardial infarction Pneumonia Sleep apnea syndrome Skin cancer Plan: The patient was seen and evaluated by Dr. Bruce. He is currently stable from the pulmonary standpoint he could be discharged home. He'll follow up with Dr. Rodriguez in our office in 1-2 weeks' time. Complete a prednisone taper. Complete course of antibiotics. He is however encouraged to call sooner with any recurrence of symptoms or other questions or concerns. I, the cosigning physician, performed a history & physical examination of the patient. Lungs sounds are clear. Diminished. Maintaining good O2 saturations in the 90s on room air. I discussed the assessment and plan of care with my nurse practitioner, Karissa Tobias. I attest to the above note as dictated by her.
--- NOTE | 2018-05-07 15:43 | P.DS ---
Providers Date of admission: 05/03/18 17:23 Expected date of discharge: 05/07/18 Attending physician: Nehemias Turner Consults: 05/03/18 17:27 Consult Physician Routine Consulting Provider: Megan Rodriguez Consult Reason/Comments: copd Do you want consulting provider notified?: Yes, Notify in am Primary care physician: Megan Rodriguez [facility] Course: 73-year-old be due obese male one of Dr. Isbell patient with past medical history of COPD, CAD, and obstructive sleep apnea who was in the hospital last time in September 2017 for COPD exacerbation. Patient seen Dr. Rodriguez pulmonary on regular basis also seeing cardiology regular basis patient had angioplasty and stent placement in the past is still seen cardiology for secondary prevention regularly. Patient presented to demurs department at [facility] with complaining of worsening shortness of breath with cough productive Dr. phlegm along with tightness and wheezes with severe hypoxia symptoms become much worse over the last 24 hours patient had failed outpatient treatment. Patient ended up coming to the emergency department was seen and evaluated was very tachypneic mildly hypoxic despite doing continue to be symptomatic. As he was treated in the emergency department patient developed to have chest pain and worsening shortness of breath with mild palpitation. CK with troponin was negative. Patient was started on IV antibiotics along with steroid and updraft treatment [id number] and admitted to the hospital. 05/05: Patient is feeling a bit better today he continues to have some coughing, minimal shortness breath, he has no fever or chills, he has no abdominal pain, he continues to run high and his blood glucose level, we will adjust his Levemir to 42 units at bedtime and increase his NovoLog to 15 units plus a sliding scale. 05/06: Patient is feeling better continue to have occasional wheezing, occasional cough, he has less shortness breath, he has no abdominal pain, nausea , he had one episode of diarrhea yesterday but is feeling better today he has no cramps in his leg he has no edema. The plan is to discharge him home tomorrow morning. 05/07: Patient is very anxious to be discharged home. Patient has been afebrile. Pulse ox 99% on room air. Count is at 13.9. BUN 34 and creatinine 1.21. Blood sugars are running in the 140s to 200. Patient will be discharged home today in stable condition. Discharge diagnoses: 1 acute respiratory distress secondary to a combination of COPD exacerbation, severe bronchitis. 2 COPD exacerbation 3 severe bronchitis 4 chest pain: Atypical 5 type 2 diabetes on insulin, uncontrolled with hyperglycemia 6 CAD 7 chronic diastolic heart failure 8 hypertension 9 hyperlipidemia 10 severe GERD 11 acute kidney injury on chronic kidney disease III Discharge plan: Home Impression and plan of care have been directed as dictated by the signing physician. Lay Elizabeth nurse practitioner acting as scribe for signing physician. Patient Condition at Discharge: Good Plan - Discharge Summary Discharge Rx Participant: Yes New Discharge Prescriptions: New Doxycycline Monohydrate [Vibramycin] 100 mg PO BID #14 capsule Insulin Aspart [NovoLOG (formulary)] 15 unit SQ AC-TID #0 vial predniSONE 20 mg PO DAILY #5 tab Continue Aspirin EC [Ecotrin Low Dose] 81 mg PO DAILY Metoprolol Tartrate [Lopressor] 100 mg PO BID #120 tab amLODIPine [Norvasc] 10 mg PO DAILY Insulin Lispro [humaLOG Kwikpen] See Protocol SQ ACHS Budesonide-Formot 160-4.5 Mcg [Symbicort 160-4.5 Mcg Inhaler] 2 puff INHALATION RT-BID Atorvastatin [Lipitor] 80 mg PO HS Potassium Chloride [K-Tab ER] 20 meq PO DAILY Loratadine [Claritin] 10 mg PO DAILY Furosemide [Lasix] 40 mg PO BID Changed Insulin Glargine,Hum.rec.anlog [Toujeo Solostar] 42 unit SQ HS #0 Discharge Medication List Aspirin EC [Ecotrin Low Dose] 81 mg PO DAILY 10/13/16 [History] Metoprolol Tartrate [Lopressor] 100 mg PO BID #120 tab 10/19/16 [Rx] Insulin Lispro [humaLOG Kwikpen] See Protocol SQ ACHS 12/07/16 [History] Ipratropium-Albuterol Nebulize [Duoneb 0.5 mg-3 mg/3 ml Soln] 3 ml INHALATION RT -Q6H PRN #120 ampul.neb 12/07/16 [Rx] amLODIPine [Norvasc] 10 mg PO DAILY 12/07/16 [History] Budesonide-Formot 160-4.5 Mcg [Symbicort 160-4.5 Mcg Inhaler] 2 puff INHALATION RT-BID 05/23/17 [History] Atorvastatin [Lipitor] 80 mg PO HS 09/21/17 [History] Furosemide [Lasix] 40 mg PO BID 05/03/18 [History] Loratadine [Claritin] 10 mg PO DAILY 05/03/18 [History] Potassium Chloride [K-Tab ER] 20 meq PO DAILY 05/03/18 [History] Doxycycline Monohydrate [Vibramycin] 100 mg PO BID #14 capsule 05/07/18 [Rx] Insulin Aspart [NovoLOG (formulary)] 15 unit SQ AC-TID #0 vial 05/07/18 [Rx] Insulin Glargine,Hum.rec.anlog [Toujeo Solostar] 42 unit SQ HS #0 05/07/18 [Rx] predniSONE 20 mg PO DAILY #5 tab 05/07/18 [Rx] Follow up Appointment(s)/Referral(s): Megan Rodriguez MD [Primary Care Provider] - 05/24/18 10:15 am (May 24 10:15) Tomasz Isbell DO [Family Provider] - 1 Week (office will call with date and time) Patient Instructions/Handouts: Doxycycline (By mouth), Prednisone (By mouth), COPD (Chronic Obstructive Pulmonary Disease) (DC), Chronic Lung Disease and Infection Prevention (DC) Discharge Disposition: HOME SELF-CARE
== END 2018-05-07 14:00 | disposition home or self-care (01) | DRG 191 ==
LOC: EC 14:34 → OBSVTOIN 17:23 → 6SEL 17:23 → 5MS5E 05-04 20:32
PROVIDERS: ADMIT Internal Medicine Geriatric Medicine; ATTEND Internal Medicine Geriatric Medicine
DX: J44.1 Chronic obstructive pulmonary disease with (acute) exacerbation (principal); I13.0 Hypertensive heart and chronic kidney disease with heart failure and stage 1 through stage 4 chronic kidney disease, or unspecified chronic kidney disease; I50.32 Chronic diastolic (congestive) heart failure; N17.9 Acute kidney failure, unspecified; E11.65 Type 2 diabetes mellitus with hyperglycemia; E11.22 Type 2 diabetes mellitus with diabetic chronic kidney disease; R06.03 Acute respiratory distress; D64.9 Anemia, unspecified; N18.3 Chronic kidney disease, stage 3 (moderate); R07.89 Other chest pain; E78.5 Hyperlipidemia, unspecified; G47.33 Obstructive sleep apnea (adult) (pediatric); T38.0X5A Adverse effect of glucocorticoids and synthetic analogues, initial encounter; I25.10 Atherosclerotic heart disease of native coronary artery without angina pectoris; I25.2 Old myocardial infarction; K21.9 Gastro-esophageal reflux disease without esophagitis; E66.9 Obesity, unspecified; M17.0 Bilateral primary osteoarthritis of knee; Z68.34 Body mass index [BMI] 34.0-34.9, adult; Z79.4 Long term (current) use of insulin; Z79.51 Long term (current) use of inhaled steroids; Z79.899 Other long term (current) drug therapy; Z79.82 Long term (current) use of aspirin; Z95.5 Presence of coronary angioplasty implant and graft; Z85.828 Personal history of other malignant neoplasm of skin; Z87.01 Personal history of pneumonia (recurrent); Z90.49 Acquired absence of other specified parts of digestive tract; Z82.49 Family history of ischemic heart disease and other diseases of the circulatory system; Z83.3 Family history of diabetes mellitus; Z82.3 Family history of stroke; Z84.1 Family history of disorders of kidney and ureter; Z82.0 Family history of epilepsy and other diseases of the nervous system; Y92.009 Unspecified place in unspecified non-institutional (private) residence as the place of occurrence of the external cause
CPT/HCPCS: 36415; 71046; 80048; 80053; 82550; 82553; 83036; 84484; 85025; 85610; 85730; 93005; 94640; 94760; 96365; 96375; 99285

== ENCOUNTER → 2018-09-19 | Outpatient (CLI) | payer MEDICARE ==
[2018-09-19 14:20] LABS: Basophils % (A) 0 %; Eosinophils # (A) 0.1 k/uL (0-0.7); Eosinophils % (A) 2 %; HCT 35.7 % (39.0-53.0); HGB 11.7 gm/dL (13.0-17.5); Lymphocytes # (A) 0.8 k/uL (1.0-4.8); Lymphocytes % (A) 11 %; MCH 30.2 pg (25.0-35.0); MCHC 32.6 g/dL (31.0-37.0); MCV 92.5 fL (80.0-100.0); Mean Platelet Volume 7.6; Monocytes # (A) 0.4 k/uL (0-1.0); Monocytes % (A) 5 %; Neutrophils # (A) 5.8 k/uL (1.3-7.7); Neutrophils % (A) 80 %; Platelet Count 261 k/uL (150-450); Poikilocytosis Slight; RBC 3.86 m/uL (4.30-5.90); RDW 15.8 % (11.5-15.5); WBC 7.3 k/uL (3.8-10.6)
[2018-09-19 19:18] LABS: Albumin 4.2 g/dL (3.80-4.90); Albumin/Globulin Ratio 2.63 (1.20-2.10); Anion Gap 7.5 mmol/L (4.00-12.00); Calcium 8.7 mg/dL (8.7-10.3); Carbon Dioxide 29.5 mmol/L (21.6-31.8); Globulin 1.6 g/dL (1.6-3.3); Potassium 3.9 mmol/L (3.5-5.5); Total Bilirubin 1.7 mg/dL (0.3-1.2); Total Protein 5.8 g/dL (6.2-8.2)
[2018-09-19 20:40] LABS: Hemoglobin A1C 6.7 % (4.0-6.0)
== END | disposition home or self-care (01) ==
LOC: LABWHC1 12:52
PROVIDERS: ATTEND Family Medicine
DX: J44.1 Chronic obstructive pulmonary disease with (acute) exacerbation (principal); E11.9 Type 2 diabetes mellitus without complications; I50.9 Heart failure, unspecified; N40.0 Benign prostatic hyperplasia without lower urinary tract symptoms; Z12.5 Encounter for screening for malignant neoplasm of prostate
CPT/HCPCS: 85379; 80053; 85025; 83036; 36415; G0103

== ENCOUNTER → 2018-09-24 | Outpatient (CLI) | payer MEDICARE ==
--- NOTE | 2018-09-24 15:26 | CT ---
EXAMINATION TYPE: CT chest wo con DATE OF EXAM: 09/24/2018 COMPARISON: Prior chest CT October 14, 2016. HISTORY: R79.1 Abnormal coagulation profile/ elevated d-dimer per order. CT DLP: 934 mGycm. Automated Exposure Control for Dose Reduction was Utilized. TECHNIQUE: CT scan of the thorax is performed without IV contrast. FINDINGS: LUNGS: There is some bibasilar parenchymal linear scarring and/or atelectasis. Slightly elevated righ t hemidiaphragm is seen. No suspicious noncalcified nodules or masses are present. There is no pleura l effusion or pneumothorax seen. The tracheobronchial tree is patent. MEDIASTINUM: Lack of IV contrast is noted to limit evaluation for mediastinal and especially hilar ad enopathy. There are no definitive greater than 1 cm noncalcified hilar or mediastinal lymph nodes. T here are prominent but calcified bilateral hilar and mediastinal lymph nodes including subcarinal and paratracheal regions. No cardiomegaly is is seen. Trace pericardial effusion is redemonstrated axial image 51 Moderate to severe 3 vessel coronary artery calcification is present. OTHER: Cholecystectomy clips are redemonstrated. Subcentimeter hypodense areas in spleen axial image 57 for reference are stable and too small to further characterize but favored benign. Cortical thinni ng in visualized portion of both kidneys is seen. There is multilevel moderate spurring in the mid to lower thoracic spine. Disc calcifications near thoracolumbar junction are redemonstrated. IMPRESSION: Chronic parenchymal changes and evidence of old granulomatous disease. No suspicious acut e pulmonary process. Suboptimal evaluation for pulmonary embolism without IV contrast.
--- NOTE | 2018-09-24 21:10 | US ---
EXAMINATION TYPE: US venous doppler duplex LE BI DATE OF EXAM: 09/24/2018 4:27 PM COMPARISON: None CLINICAL HISTORY: 73-year-old male R60.0 Localized edema. Patient states sometimes legs swell. No hi story of blood clots. SIDE PERFORMED: Bilateral TECHNIQUE: The lower extremity deep venous system is examined utilizing real time linear array sonog shannan with graded compression, doppler sonography and color-flow sonography. FINDINGS: VESSELS IMAGED: External Iliac Vein (EIV) Common Femoral Vein Deep Femoral Vein Greater Saphenous Vein * Femoral Vein Popliteal Vein Small Saphenous Vein * Proximal Calf Veins (* superficial vessels) Right Leg: Negative for DVT Left Leg: Negative for DVT IMPRESSION: No evidence for DVT within the bilateral lower extremities imaged from the groin to the upper calves.
== END | disposition home or self-care (01) ==
LOC: RADCTMAIN 14:36
PROVIDERS: ATTEND Family Medicine
DX: R91.8 Other nonspecific abnormal finding of lung field (principal); R60.0 Localized edema
CPT/HCPCS: 71250; 93970

== ENCOUNTER → 2018-10-12 | Outpatient (CLI) | payer MEDICARE ==
--- NOTE | 2018-10-14 15:19 | US ---
EXAMINATION TYPE: US carotid duplex BILAT DATE OF EXAM: 10/12/2018 COMPARISON: NONE CLINICAL HISTORY: 73-year-old male I50.9 Heart Failure. TECHNIQUE: Carotid duplex ultrasound examination. Direct Doppler criteria was utilized. FINDINGS: EXAM MEASUREMENTS: RIGHT: Peak Systolic Velocity (PSV) cm/sec ----- Right CCA: 75.5 ----- Right ICA: 71.4 ----- Right ECA: 88.4 ICA/CCA ratio: 0.9 RIGHT: End Diastole cm/sec ----- Right CCA: 13.9 ----- Right ICA: 19.3 ----- Right ECA: 16.1 LEFT: Peak Systolic Velocity (PSV) cm/sec ----- Left CCA: 60.1 ----- Left ICA: 75.7 ----- Left ECA: 94.6 ICA/CCA ratio: 1.3 LEFT: End Diastole cm/sec ----- Left CCA: 16.1 ----- Left ICA: 19.7 ----- Left ECA: 19.2 VERTEBRALS (direction of flow): Right Vertebral: Antegrade Left Vertebral: Antegrade Rhythm: Arrhythmia Md Do [facility] notes: Patient has large thick neck, somewhat technically difficult study. Mild plaque with no significant velocity elevations. IMPRESSION: No hemodynamically significant stenosis appreciated in either internal carotid artery. Criteria for Assigning % of Stenosis / Diameter reduction (Estimation based on the indirect measurements of the internal carotid artery velocities (ICA PSV). 1. Normal (no stenosis)=ICA PSV < 125 cm/s: ratio < 2.0: ICA EDV<40 cm/s. 2. Less than 50% stenosis=ICA PSV < 125 cm/s: ratio < 2.0: ICA EDV<40 cm/s. 3. 50 to 69% stenosis=ICA PSV of 125 to 230 cm/s: ration 2.0 ? 4.0: ICA EDV 40-100 cm/s. 4. Greater than 70% stenosis to near occlusion= ICA PSV > 230 cm/s: ratio > 4.0: ICA EDV > 100 cm/s. 5. Near occlusion= ICA PSV velocities may be low or undetectable: variable ratio and ICA EDV. 6. Total occlusion=unable to detect flow.
== END | disposition home or self-care (01) ==
LOC: RADUSWWP 16:58
PROVIDERS: ATTEND Family Medicine
DX: I50.9 Heart failure, unspecified (principal)
CPT/HCPCS: 93880

== ENCOUNTER → 2018-10-16 | Outpatient (CLI) | payer MEDICARE ==
--- NOTE | 2018-10-17 11:09 | ECHOF ---
Referral Reason:I50.9 Heart Failure MEASUREMENTS -------- HEIGHT: 180.3 cm WEIGHT: 119.7 kg BP: RVIDd: 3.5 cm (< 3.3) IVSd: 1.5 cm (0.6 - 1.1) LVIDd: 3.7 cm (3.9 - 5.3) LVPWd: 1.4 cm (0.6 - 1.1) IVSs: 1.9 cm LVIDs: 2.3 cm LVPWs: 1.5 cm Ao Diam: 3.6 cm (2.0 - 3.7) AV Cusp: 2.3 cm (1.5 - 2.6) LA Diam: 2.9 cm (2.7 - 3.8) MV EXCURSION: 15.228 mm (> 18.000) MV EF SLOPE: 52 mm/s (70 - 150) EPSS: 1.3 cm MV E Vishal: 0.52 m/s MV DecT: 336 ms MV A Vishal: 0.53 m/s MV E/A Ratio: 0.98 RAP: 5.00 mmHg RVSP: 29.66 mmHg FINDINGS -------- Sinus rhythm with extra systolic beats. This was a technically difficult study with suboptimal views. The left ventricular size is normal. There is moderate concentric left ventricular hypertrophy. O verall left ventricular systolic function is mildly impaired with, an EF between 45 - 50 %. Basal i nferolateral hypokinesis. The right ventricle is mildly enlarged. The left atrium is normal in size. The right atrium is normal in size. Lumason used The aortic valve is trileaflet, and appears structurally normal. No aortic stenosis or regurgitation. Trace amount of aortic regurgitation. The mitral valve leaflets are mildly thickened. There is trace mitral regurgitation. Trace tricuspid regurgitation present. The right ventricular systolic pressure, as measured by Dopp ler, is 29.66mmHg. Pulmonic valve appears structurally normal. The aortic root size is normal. IVC Not well visulized. The pericardium is normal. CONCLUSIONS -------- 1. Sinus rhythm with extra systolic beats. 2. This was a technically difficult study with suboptimal views. 3. The left ventricular size is normal. 4. There is moderate concentric left ventricular hypertrophy. 5. Overall left ventricular systolic function is mildly impaired with, an EF between 45 - 50 %. 6. Basal inferolateral hypokinesis. 7. The right ventricle is mildly enlarged. 8. The left atrium is normal in size. 9. The right atrium is normal in size. 10. Lumason used 11. The aortic valve is trileaflet, and appears structurally normal. No aortic stenosis or regurgitat ion. 12. Trace amount of aortic regurgitation. 13. The mitral valve leaflets are mildly thickened. 14. There is trace mitral regurgitation. 15. Trace tricuspid regurgitation present. 16. The right ventricular systolic pressure, as measured by Doppler, is 29.66mmHg. 17. Pulmonic valve appears structurally normal. 18. The aortic root size is normal. 19. IVC Not well visulized. 20. The pericardium is normal. PERCH MENDER: Vianca Solorio RDCS
== END | disposition home or self-care (01) ==
LOC: RADECHMAIN 15:36
PROVIDERS: ATTEND Family Medicine
DX: I05.9 Rheumatic mitral valve disease, unspecified (principal); I50.9 Heart failure, unspecified
CPT/HCPCS: C8929; Q9950; 93306

== ENCOUNTER → 2018-11-27 | Outpatient (CLI) | payer MEDICARE ==
--- NOTE | 2018-11-27 13:22 | XR ---
EXAMINATION TYPE: XR foot complete RT DATE OF EXAM: 11/27/2018 CLINICAL HISTORY: pain TECHNIQUE: Frontal, lateral and oblique images of the right foot are obtained. COMPARISON: None. FINDINGS: There is no acute fracture/dislocation evident. The joint spaces appear within normal fraser its. Dorsal soft tissue swelling is noted. IMPRESSION: There is no acute fracture or dislocation. ICD 10 NO FRACTURE, INITIAL EVALUATION
== END ==
LOC: RADXRMAIN 12:54
PROVIDERS: ATTEND Family Medicine
DX: M79.671 Pain in right foot (principal)

== ENCOUNTER 2018-12-05 13:13 | Emergency (ER) | payer MEDICARE ==
[2018-12-05] MEDS ORDERED: SODIUM CHLORIDE 0.9% 500 ML 500 ML IV STA (13:34)
[2018-12-05 13:55] LABS: Anisocytosis Slight; Basophils % (A) 0 %; Eosinophils % (A) 0 %; HCT 38.1 % (39.0-53.0); HGB 12.5 gm/dL (13.0-17.5); Lymphocytes # (A) 0.9 k/uL (1.0-4.8); Lymphocytes % (A) 8 %; MCH 29.9 pg (25.0-35.0); MCHC 32.8 g/dL (31.0-37.0); MCV 91.3 fL (80.0-100.0); Mean Platelet Volume 6.5; Monocytes # (A) 0.6 k/uL (0-1.0); Monocytes % (A) 5 %; Neutrophils # (A) 9.7 k/uL (1.3-7.7); Neutrophils % (A) 85 %; Platelet Count 266 k/uL (150-450); RBC 4.18 m/uL (4.30-5.90); RDW 16.7 % (11.5-15.5); WBC 11.5 k/uL (3.8-10.6)
--- NOTE | 2018-12-05 13:56 | ED ---
Arrhythmia/Palpitations HPI - General Chief Complaint: Arrhythmia/Palpitations Stated Complaint: Dr soriano- heart problems Time Seen by Provider: 12/05/18 13:27 Source: patient, RN notes reviewed Mode of arrival: wheelchair Limitations: no limitations - History of Present Illness Initial Comments: 73-year-old male presents emergency Department from PCPs office for concerns of her issue. Patient does have underlying cardiac history including prior HI, C HF, hyperlipidemia, hypertension, diabetes. Patient states that he does not she's gained 10 pounds last couple days. Patient states he feels short of breath especially with exertion. He denies any current chest pain. He states she's noticed some palpitations. His PCP told he had some irregular heartbeat. Patient denies any current nausea vomiting. Patient states he does see his PCP every 2 weeks secondary to recurrent pneumonia and multiple core morbidities. - Related Data Home Medications Medication Instructions Recorded Confirmed Aspirin EC [Ecotrin Low Dose] 81 mg PO DAILY 10/13/16 12/05/18 amLODIPine [Norvasc] 10 mg PO DAILY 12/07/16 12/05/18 Budesonide-Formot 160-4.5 Mcg 2 puff INHALATION RT-BID 05/23/17 12/05/18 [Symbicort 160-4.5 Mcg Inhaler] Atorvastatin [Lipitor] 80 mg PO HS 09/21/17 12/05/18 Furosemide [Lasix] 40 mg PO BID 05/03/18 12/05/18 Loratadine [Claritin] 10 mg PO DAILY 05/03/18 12/05/18 Potassium Chloride [K-Tab ER] 20 meq PO DAILY 05/03/18 12/05/18 INSULIN ASPART (NovoLOG) [NovoLOG 20 unit SQ AC-TID 12/05/18 12/05/18 (formulary)] Insulin Glargine,Hum.rec.anlog 50 unit SQ HS 12/05/18 12/05/18 [Cesar Shirleyostcesilia] Previous Rx's Medication Instructions Recorded Metoprolol Tartrate [Lopressor] 100 mg PO BID #120 tab 10/19/16 Ipratropium-Albuterol Nebulize 3 ml INHALATION RT-Q6H PRN #120 12/07/16 [Duoneb 0.5 mg-3 mg/3 ml Soln] ampul.neb Allergies Allergy/AdvReac Type Severity Reaction Status Date / Time No Known Allergies Allergy Verified 12/05/18 13:42 Review of Systems ROS Statement: Those systems with pertinent positive or pertinent negative responses have been documented in the HPI. ROS Other: All systems not noted in ROS Statement are negative. Past Medical History Past Medical History: Coronary Artery Disease (CAD), COPD, Diabetes Mellitus, Hyperlipidemia, Hypertension, Myocardial Infarction ([place]), Pneumonia, Sleep Apnea/CPAP/BIPAP Additional Past Medical History / Comment(s): skin cancer from his scalp that has been removed Last Myocardial Infarction Date:: 2011 History of Any Multi-Drug Resistant Organisms: None Reported Past Surgical History: Cholecystectomy, Heart Catheterization With Stent, Hernia Repair Additional Past Surgical History / Comment(s): UMBILICAL HERNIA REPAIR.VASECTOMY, colonoscopy, skin ca on scalp removed. Past Anesthesia/Blood Transfusion Reactions: No Reported Reaction Date of Last Stent Placement:: 2011 Past Psychological History: No Psychological Hx Reported Smoking Status: Never smoker - Past Family History Father Family Medical History: CVA/TIA, Hypertension, Myocardial Infarction ([place]) Additional Family Medical History / Comment(s): AT AGE 73-[place] Mother Family Medical History: Dementia, Renal Disease Additional Family Medical History / Comment(s): AT AGE 56 COMPLICATIONS FROM DIABETES General Exam Limitations: no limitations General appearance: alert, in no apparent distress Head exam: Present: atraumatic, normocephalic, normal inspection Eye exam: Present: normal appearance, PERRL, EOMI. Absent: scleral icterus, conjunctival injection, periorbital swelling Respiratory exam: Present: decreased breath sounds. Absent: normal lung sounds bilaterally, respiratory distress, wheezes, rales, rhonchi, stridor Cardiovascular Exam: Present: regular rate, normal rhythm, normal heart sounds. Absent: systolic murmur, diastolic murmur, rubs, gallop, clicks GI/Abdominal exam: Present: soft, normal bowel sounds. Absent: distended, tenderness, guarding, rebound, rigid Extremities exam: Present: pedal edema (3+ pitting edema) Neurological exam: Present: alert, oriented X3, motor sensory deficit Skin exam: Present: warm, dry, intact, normal color. Absent: rash Course Vital Signs 12/05/18 12/05/18 12/05/18 13:15 14:00 15:03 Temperature 98.9 F Pulse Rate 51 L 65 69 Respiratory 18 20 20 Rate Blood Pressure 139/106 119/87 128/83 O2 Sat by Pulse 97 99 99 Oximetry EKG Findings - EKG Comments: EKG Findings:: EKG performed at 13:24 sinus rhythm with sinus arrhythmia rate of 72 CT 164 QRS 98 QT/QTC 388/424 Medical Decision Making - Medical Decision Making 73-year-old male presented for possible heart arrhythmia. Patient EKG shows sinus arrhythmia with no other noted arrhythmia or dysrhythmia. Patient's laboratory unremarkable. Patient does have noted weight gain but no signs of CHF. Patient will be given a dose of Lasix and discharge. - Lab Data Result diagrams: 12/05/18 13:30 12/05/18 13:30 Lab Results 12/05/18 12/05/18 12/05/18 Range/Units 13:30 13:30 13:30 WBC 11.5 H (3.8-10.6) k/uL RBC 4.18 L (4.30-5.90) m/uL Hgb 12.5 L (13.0-17.5) gm/dL Hct 38.1 L (39.0-53.0) % MCV 91.3 (80.0-100.0) fL MCH 29.9 (25.0-35.0) pg MCHC 32.8 (31.0-37.0) g/dL RDW 16.7 H (11.5-15.5) % Plt Count 266 (150-450) k/uL Neutrophils % 85 % Lymphocytes % 8 % Monocytes % 5 % Eosinophils % 0 % Basophils % 0 % Neutrophils # 9.7 H (1.3-7.7) k/uL Lymphocytes # 0.9 L (1.0-4.8) k/uL Monocytes # 0.6 (0-1.0) k/uL Eosinophils # 0.0 (0-0.7) k/uL Basophils # 0.0 (0-0.2) k/uL Anisocytosis Slight PT 10.3 (9.0-12.0) sec INR 1.0 (<1.2) APTT 24.0 (22.0-30.0) sec Sodium 139 (137-145) mmol/L Potassium 4.7 (3.5-5.1) mmol/L Chloride 104 (98-107) mmol/L Carbon Dioxide 28 (22-30) mmol/L Anion Gap 7 mmol/L BUN 38 H (9-20) mg/dL Creatinine 1.35 H (0.66-1.25) mg/dL Est GFR (CKD-EPI)AfAm 59 (>60 ml/min/1.73 sqM) Est GFR (CKD-EPI)NonAf 51 (>60 ml/min/1.73 sqM) Glucose 90 (74-99) mg/dL Calcium 9.3 (8.4-10.2) mg/dL Magnesium 2.0 (1.6-2.3) mg/dL Total Bilirubin 1.4 H (0.2-1.3) mg/dL AST 24 (17-59) U/L ALT 36 (21-72) U/L Alkaline Phosphatase 63 (38-126) U/L Troponin I (0.000-0.034) ng/mL NT-Pro-B Natriuret Pep pg/mL Total Protein 6.6 (6.3-8.2) g/dL Albumin 4.0 (3.5-5.0) g/dL TSH 2.150 (0.465-4.680) mIU/L 12/05/18 12/05/18 Range/Units 13:30 13:30 WBC (3.8-10.6) k/uL RBC (4.30-5.90) m/uL Hgb (13.0-17.5) gm/dL Hct (39.0-53.0) % MCV (80.0-100.0) fL MCH (25.0-35.0) pg MCHC (31.0-37.0) g/dL RDW (11.5-15.5) % Plt Count (150-450) k/uL Neutrophils % % Lymphocytes % % Monocytes % % Eosinophils % % Basophils % % Neutrophils # (1.3-7.7) k/uL Lymphocytes # (1.0-4.8) k/uL Monocytes # (0-1.0) k/uL Eosinophils # (0-0.7) k/uL Basophils # (0-0.2) k/uL Anisocytosis PT (9.0-12.0) sec INR (<1.2) APTT (22.0-30.0) sec Sodium (137-145) mmol/L Potassium (3.5-5.1) mmol/L Chloride (98-107) mmol/L Carbon Dioxide (22-30) mmol/L Anion Gap mmol/L BUN (9-20) mg/dL Creatinine (0.66-1.25) mg/dL Est GFR (CKD-EPI)AfAm (>60 ml/min/1.73 sqM) Est GFR (CKD-EPI)NonAf (>60 ml/min/1.73 sqM) Glucose (74-99) mg/dL Calcium (8.4-10.2) mg/dL Magnesium (1.6-2.3) mg/dL Total Bilirubin (0.2-1.3) mg/dL AST (17-59) U/L ALT (21-72) U/L Alkaline Phosphatase (38-126) U/L Troponin I 0.021 (0.000-0.034) ng/mL NT-Pro-B Natriuret Pep 504 pg/mL Total Protein (6.3-8.2) g/dL Albumin (3.5-5.0) g/dL TSH (0.465-4.680) mIU/L Disposition Clinical Impression: Sinus arrhythmia, Weight gain, History of CHF (congestive heart failure) Disposition: HOME SELF-CARE Condition: Stable Instructions (If sedation given, give patient instructions): Heart Palpitations (ED) Additional Instructions: Please return to the Emergency Department if symptoms worsen or any other concerns. Is patient prescribed a controlled substance at d/c from ED?: No Referrals: Tomasz Isbell DO [Primary Care Provider] - 1-2 days Time of Disposition: 16:02
[2018-12-05 14:04] LABS: Prothrombin Time 10.3 sec (9.0-12.0)
[2018-12-05 14:08] LABS: Calcium 9.3 mg/dL (8.4-10.2); Potassium 4.7 mmol/L (3.5-5.1); Total Bilirubin 1.4 mg/dL (0.2-1.3); Total Protein 6.6 g/dL (6.3-8.2)
--- NOTE | 2018-12-05 14:34 | XR ---
EXAMINATION TYPE: XR chest 2V DATE OF EXAM: 12/05/2018 COMPARISON: May 03, 2018 HISTORY: Shortness of breath TECHNIQUE: Frontal and lateral views of the chest are obtained. FINDINGS: Scattered senescent parenchymal changes noted. Hyperinflation compatible with COPD. No evidence for infiltrate. No evidence for atelectasis. Heart size is stable. Mediastinal structures are stable and grossly unremarkable. No evidence for hilar prominence. Degenerative changes dorsal spine. IMPRESSION: 1. No evidence for acute pulmonary disease.
[2018-12-05] MEDS ORDERED: FUROSEMIDE 10 MG/ML 4 ML VIAL IV STA (15:58)
[2018-12-05 17:13] VITALS: BP 130/78; PULSE 55; RESP 16; TEMP 98.3
== END 2018-12-05 16:55 | disposition home or self-care (01) ==
LOC: EC 13:13
DX: I49.8 Other specified cardiac arrhythmias (principal); R63.5 Abnormal weight gain; R60.0 Localized edema; I50.9 Heart failure, unspecified; R06.02 Shortness of breath; J44.9 Chronic obstructive pulmonary disease, unspecified; E11.9 Type 2 diabetes mellitus without complications; I25.10 Atherosclerotic heart disease of native coronary artery without angina pectoris; E78.5 Hyperlipidemia, unspecified; I11.0 Hypertensive heart disease with heart failure; I25.2 Old myocardial infarction; G47.30 Sleep apnea, unspecified; Z79.4 Long term (current) use of insulin; Z79.51 Long term (current) use of inhaled steroids; Z79.82 Long term (current) use of aspirin; Z79.899 Other long term (current) drug therapy; Z87.01 Personal history of pneumonia (recurrent); Z85.828 Personal history of other malignant neoplasm of skin; Z98.890 Other specified postprocedural states; Z95.5 Presence of coronary angioplasty implant and graft; Z99.89 Dependence on other enabling machines and devices; Z82.49 Family history of ischemic heart disease and other diseases of the circulatory system
CPT/HCPCS: 36415; 71046; 80053; 83735; 83880; 84443; 84484; 85025; 85610; 85730; 93005; 96361; 96374; 99285

== ENCOUNTER → 2019-05-24 | Outpatient (CLI) | payer MEDICARE | END | disposition home or self-care (01) | LOC: RADECHMAIN 11:10 | PROVIDERS: ATTEND Family Medicine | DX: J44.9 Chronic obstructive pulmonary disease, unspecified (principal); I48.91 Unspecified atrial fibrillation | CPT/HCPCS: 93270 ==

== ENCOUNTER → 2020-05-05 | Outpatient (CLI) | payer MEDICARE ==
--- NOTE | 2020-05-05 17:49 | CT ---
EXAMINATION TYPE: CT abdomen pelvis w con DATE OF EXAM: 05/05/2020 COMPARISON: None HISTORY: RLQ pain CT DLP: 1707.7 mGycm Automated exposure control for dose reduction was used. CONTRAST: Performed with IV Contrast, patient injected with 80cc mL of Isovue 300. Lung bases are clear. There is no pleural effusion. There is mild subsegmental atelectasis right lung base. Heart size is normal. There is some coronary artery calcification. There is no pericardial eff usion. Liver spleen pancreas stomach appear normal. Bile ducts are not dilated. There are clips from cholecy stectomy. There is no adrenal mass. Kidneys show no hydronephrosis. There is 1.5 cm cortical cyst posterior lef t kidney. There is 1.5 cm cortical cyst lower pole right kidney. There is no perinephric fluid. Urete rs are not dilated. There is no retroperitoneal adenopathy. Bladder distends smoothly. There is no in guinal hernia. There is no free fluid in the pelvis. There are numerous sigmoid diverticula. Appendix is medial and appears normal. There is normal contrast opacification of the small bowel. The re are no dilated loops. There is no mesenteric edema. There is no ascites or free air. There is no e vidence of bowel obstruction. Proximal femurs and hip joints are intact. Bony pelvis is intact. Lumba r vertebra have normal alignment. There is vacuum disc at L5-S1. I see no focal bone destruction. The re is spurring in the lower thoracic spine. Abdominal aorta is atheromatous. IMPRESSION: Normal appendix. Moderate sigmoid diverticulosis without diverticulitis. I do not see a cause for rig ht lower quadrant pain.
--- NOTE | 2020-05-06 07:03 | XR ---
EXAMINATION TYPE: XR wrist complete RT DATE OF EXAM: 05/05/2020 CLINICAL HISTORY: pain TECHNIQUE: Frontal, lateral and oblique images of the right wrist are obtained. COMPARISON: None. FINDINGS: There is severe degenerative change noted to involve the first carpal metacarpal joint with bony leidy apse and mild radial subluxation. No acute fracture is evident at this time. Degenerative narrowing o f the radiocarpal joint space. Widening of the scapholunate joint space measuring 2.5 mm. Cystic dege nerative change. Vascular calcifications identified. IMPRESSION: 1. Severe degenerative changes as discussed. 2. Scapholunate widening as noted. Correlate for ligamentous injury.
--- NOTE | 2020-05-06 07:04 | XR ---
EXAMINATION TYPE: XR hand complete RT DATE OF EXAM: 05/05/2020 CLINICAL HISTORY: pain TECHNIQUE: Frontal, lateral and oblique images of the right hand are obtained. COMPARISON: None. FINDINGS: There is no acute fracture/dislocation evident. Moderate to severe degenerative joint spac e narrowing involving various PIP and DIP joints greatest involving the second third and fourth digit s. Soft tissue swelling noted. IMPRESSION: There is no acute fracture or dislocation ICD 10 NO FRACTURE, INITIAL EVALUATION
== END | disposition home or self-care (01) ==
LOC: RADCTMAIN 15:46
PROVIDERS: ATTEND Family Medicine
DX: R10.31 Right lower quadrant pain (principal); K57.30 Diverticulosis of large intestine without perforation or abscess without bleeding; M19.031 Primary osteoarthritis, right wrist; M25.831 Other specified joint disorders, right wrist
CPT/HCPCS: 82565; 84520; 73110; 73130; 74177; 36415; Q9967

== ENCOUNTER → 2020-09-08 | Outpatient (CLI) | payer MEDICARE | END | disposition home or self-care (01) | LOC: LABWHC1 12:58 | PROVIDERS: ATTEND Family Medicine | DX: Z03.818 Encounter for observation for suspected exposure to other biological agents ruled out (principal); Z20.828 Contact with and (suspected) exposure to other viral communicable diseases | CPT/HCPCS: U0003; C9803 ==

== ENCOUNTER → 2020-12-02 | Outpatient (CLI) | payer MEDICARE ==
[2020-12-02 13:38] LABS: Anisocytosis Slight; Basophils % (A) 0 %; Eosinophils # (A) 0.1 k/uL (0-0.7); Eosinophils % (A) 2 %; HCT 30.9 % (39.0-53.0); HGB 10.6 gm/dL (13.0-17.5); Lymphocytes # (A) 1.3 k/uL (1.0-4.8); Lymphocytes % (A) 14 %; MCHC 34.3 g/dL (31.0-37.0); MCV 90.5 fL (80.0-100.0); Mean Platelet Volume 6.7; Monocytes # (A) 0.5 k/uL (0-1.0); Monocytes % (A) 6 %; Neutrophils % (A) 78 %; Platelet Count 249 k/uL (150-450); RBC 3.42 m/uL (4.30-5.90)
[2020-12-02 13:46] LABS: Appearance,Urine Clear (Clear); Bacteria,Urine Rare /hpf; Bilirubin,Urine Negative (Negative); Blood,Urine Negative (Negative); Color,Urine Light Yellow; Glucose,Urine (UA) Negative (Negative); Ketones,Urine Negative (Negative); Leukocyte Esterase,Urine Small (Negative); Mucus,Urine Rare /hpf; Nitrite,Urine Negative (Negative); Protein,Urine Trace (Negative); Specific Gravity,Urine 1.011 (1.001-1.035); Urobilinogen,Urine <2.0 mg/dL (<2.0); WBC,Urine 5 /hpf (0-5)
[2020-12-02 14:00] LABS: Potassium 4.8 mmol/L (3.5-5.1)
== END | disposition home or self-care (01) ==
LOC: LABPAT 12:15
PROVIDERS: ATTEND Urology
DX: Z01.818 Encounter for other preprocedural examination (principal); I45.19 Other right bundle-branch block; I10 Essential (primary) hypertension; E11.9 Type 2 diabetes mellitus without complications; R94.31 Abnormal electrocardiogram [ECG] [EKG]; R33.9 Retention of urine, unspecified
CPT/HCPCS: 36415; 80048; 81001; 85025; 87086; 93005

== ENCOUNTER 2020-12-09 08:52 | Day surgery (SDC) | payer MEDICARE ==
[2020-12-03 15:35] VITALS: BMI 32.1
--- NOTE | 2020-12-08 09:35 | P.GSHP ---
History of Present Illness H&P Date: 12/08/20 75 yo male with urine retention secondary to bph P/E identifies a larger prostate as does cystoscopy. Cmg shows recouperation of the bladder He failed voiding trials on alpha blockers. He was given treatment options. He comes for a bipolar turp the risks and alternatives/have been discussed. - Constitutional Constitutional: Denies chills, Denies fever - EENT Eyes: denies blurred vision, denies pain Ears, nose, mouth and throat: Denies headache, Denies sore throat - Cardiovascular Cardiovascular: Denies chest pain, Denies shortness of breath - Respiratory Respiratory: Denies cough, Denies 7 - Gastrointestinal Gastrointestinal: Denies abdominal pain, Denies diarrhea, Denies nausea, Denies vomiting - Genitourinary (Female) Genitourinary: Denies dysuria, Denies hematuria - Genitourinary (Male) Genitourinary: Denies dysuria, Denies hematuria - Musculoskeletal Musculoskeletal: Denies myalgias - Integumentary Integumentary: Denies pruritus, Denies rash - Neurological Neurological: Denies numbness, Denies weakness - Psychiatric Psychiatric: Denies anxiety, Denies depression - Endocrine Endocrine: Denies fatigue, Denies weight change Past Medical History Past Medical History: Coronary Artery Disease (CAD), COPD, Diabetes Mellitus, Hyperlipidemia, Hypertension, Myocardial Infarction ([place]), Pneumonia, Prostate Disorder, Sleep Apnea/CPAP/BIPAP Additional Past Medical History / Comment(s): IDC present,chronic bladder infections,enlarged prostate,skin cancer from his scalp that has been removed,uses cpap Last Myocardial Infarction Date:: 2011 History of Any Multi-Drug Resistant Organisms: None Reported Past Surgical History: Cholecystectomy, Heart Catheterization With Stent, Hernia Repair Additional Past Surgical History / Comment(s): UMBILICAL HERNIA REPAIR.VASECTOMY, colonoscopy, skin ca on scalp removed. Past Anesthesia/Blood Transfusion Reactions: No Reported Reaction Additional Past Anesthesia/Blood Transfusion Reaction / Comment(s): no hx blood transfusion Date of Last Stent Placement:: 2011 Smoking Status: Never smoker - Past Family History Father Family Medical History: CVA/TIA, Hypertension, Myocardial Infarction ([place]) Additional Family Medical History / Comment(s): AT AGE 73-[place] Mother Family Medical History: Renal Disease Additional Family Medical History / Comment(s): AT AGE 56 COMPLICATIONS FROM DIABETES Medications and Allergies Home Medications Medication Instructions Recorded Confirmed Type Aspirin EC [Ecotrin Low Dose] 325 mg PO DAILY 10/13/16 12/03/20 History Furosemide [Lasix] 40 mg PO BID 05/03/18 12/03/20 History Potassium Chloride [K-Tab ER] 20 meq PO DAILY 05/03/18 12/03/20 History INSULIN ASPART (NovoLOG) [NovoLOG 0 unit SQ TID-W/MEALS PRN 12/05/18 12/03/20 History (formulary)] Insulin Glargine [Lantus] 30 unit SQ BID 12/03/20 12/03/20 History Ipratropium-Albuterol Nebulize 3 ml INHALATION TID 12/03/20 12/03/20 History [Duoneb 0.5 mg-3 mg/3 ml Soln] Simvastatin [Zocor] 20 mg PO HS 12/03/20 12/03/20 History Verapamil HCl [Calan] 120 mg PO BID 12/03/20 12/03/20 History Allergies Allergy/AdvReac Type Severity Reaction Status Date / Time No Known Allergies Allergy Verified 12/03/20 15:24 Surgical - Exam - General well developed, well nourished, no distress - Eyes PERRL - ENT no hearing loss - Neck no masses - Respiratory normal expansion, normal respiratory effort - Cardiovascular Rhythm: irregularly irregular - Abdomen Abdomen: soft, non tender - Genitourinary enlarged 40 gm normal penis with no external lesions, testicles present - Integumentary no rash, no growths - Neurologic normal coordination, normal sensation - Musculoskeletal normal gait, normal posture - Psychiatric oriented to time, oriented to person, oriented to place, speech is normal, memory intact Assessment and Plan Assessment: Impression: Urine retention secondary to bph. Multiple medical illnesses. Plan: Bipolar turp
[~2020-12-09 08:52] MED LIST changes: +AMPICILLIN 1,000 MG in SODIUM CHLORIDE 0.9% 50 ML IVPB PRN; +DEXAMETHASONE SOD PHOSPHATE 4 MG/ML 1 ML VIAL IV ONE; +GENTAMICIN 130 MG in SODIUM CHLORIDE 0.9% 100 ML IVPB PRN; +HYDROmorphone 0.5 MG/0.5 ML SYRINGE IVP PRN; -LACTATED RINGERS 1,000 ML IV ONE; +ONDANSETRON 4 MG/2 ML VIAL IVP ONE
[2020-12-09] MEDS: LACTATED RINGERS 1,000 ML IV SCH (09:51)
[2020-12-09 09:52] LABS: Glucose,Whole Blood 113 mg/dL (75-99)
[2020-12-09] MEDS ORDERED: PROPOFOL 10 MG/ML 20 ML VIAL IV ONE (10:41)
[2020-12-09] MEDS ORDERED: MIDAZOLAM 2 MG/2 ML VIAL ONE (10:41)
[2020-12-09] MEDS ORDERED: fentaNYL (PF) 50 MCG/ML 2 ML AMP ONE (10:41)
[2020-12-09] MEDS ORDERED: BELLADONNA-OPIUM 16.2-60 MG 1 EACH SUPP RECTAL PRN (11:58)
[2020-12-09] MEDS ORDERED: MAG HYDROX/AL HYDROX/SIMETH 30 ML CUP PO PRN (11:58)
[2020-12-09] MEDS ORDERED: ACETAMINOPHEN TAB 325 MG TAB PO PRN (11:58)
[2020-12-09] MEDS ORDERED: SODIUM CHLORIDE 0.45% 1,000 ML IV SCH (12:00)
--- NOTE | 2020-12-09 12:02 | P.OP ---
Date of Procedure: 12/09/20 Preoperative Diagnosis: Urine retention secondary to BPH Postoperative Diagnosis: Same Procedure(s) Performed: Bipolar TURP with plasma button Anesthesia: spinal Surgeon: Gil Fernandez Estimated Blood Loss (ml): 25 Pathology: none sent Condition: stable Disposition: PACU Indications for Procedure: The patient is 75. He is in urine retention. He has a large prostate. CMG showed the bladder to function. He comes for a bipolar TURP. Description of Procedure: Patient is brought to the operating suite. He is given a spinal anesthetic due to his health reasons. With lithotomy position with sterile prep and drape. Under direct vision the 25-Bulgarian sheath tract vision obturator and Foroblique lenses introduced in urethra is normal prostate appear short with a high riding bladder neck. The bladder bell heavily trabeculated. I elect use a plasma button. With the plasma button of vaporize first the bladder neck and floor of the prostate. He moved to 12:00 vaporize the left lateral lobe from bladder neck to verumontanum I didn't do the same to the right lateral lobe and then I resect and will tissue and the bladder. The resectoscope was removed. The bladder is coud-tip with a strong stream. A 18-Bulgarian coud-tip catheter is introduced the bladder with clear urine return and irrigated freely. It is secured to a Reynolds catheter. The patient awake and returned recovery in good condition The patient we placed in the hospital overnight due to his multiple medical issues. If he does well be discharged home tomorrow and follow-up in the office next week for catheter removal blood loss is negligible.
[2020-12-09 12:11] LABS: Glucose,Whole Blood 108 mg/dL (75-99)
[2020-12-09] MEDS ORDERED: INSULIN ASPART (NovoLOG) 100 UNIT/ML VIAL SQ PRN (12:30)
[2020-12-09] MEDS: IPRATROPIUM-ALBUTEROL 3 ML NEB INHALATION SCH ×2 (15:33→19:30)
[2020-12-09 20:18] LABS: Glucose,Whole Blood 337 mg/dL (75-99)
[2020-12-09] MEDS: VERAPAMIL SR 120 MG TABLET.ER PO SCH (20:25)
[2020-12-09] MEDS: DOCUSATE 100 MG CAP PO SCH (20:25)
[2020-12-09] MEDS: FUROSEMIDE 40 MG TAB PO SCH (20:25)
[2020-12-09] MEDS: INSULIN DETEMIR (LEVEMIR) 100 UNIT/ML SYR SQ SCH (20:26)
[2020-12-09] MEDS ORDERED: ATORVASTATIN 10 MG TAB PO SCH (21:00)
[2020-12-10 02:57] VITALS: RESP 16
[2020-12-10] MEDS: LACTATED RINGERS 1,000 ML IV SCH (05:03)
--- NOTE | 2020-12-10 06:58 | P.DS ---
Providers Attending physician: Gil Fernandez Primary care physician: [place] Hospital Course: The patient has multiple medical illnesses including diabetes. He is admitted for a TURP for his urine chronic urine retention that failed medical management. He underwent this without difficulty. Due to his obesity his medical problems and his diabetes he is observed in the hospital overnight. His urine is clear and he feels well. He be discharged home today. He'll go home with a catheter. A follow-up in the office next week for catheter removal and a voiding trial. His condition is good. Patient Condition at Discharge: Good Plan - Discharge Summary Discharge Rx Participant: No New Discharge Prescriptions: No Action Aspirin EC [Ecotrin Low Dose] 325 mg PO DAILY Potassium Chloride [K-Tab ER] 20 meq PO DAILY Furosemide [Lasix] 40 mg PO BID INSULIN ASPART (NovoLOG) [NovoLOG (formulary)] 0 unit SQ TID-W/MEALS PRN PRN Reason: scale Insulin Glargine [Lantus] 30 unit SQ BID Verapamil HCl [Calan] 120 mg PO BID Simvastatin [Zocor] 20 mg PO HS Ipratropium-Albuterol Nebulize [Duoneb 0.5 mg-3 mg/3 ml Soln] 3 ml INHALATION TID Discharge Medication List Aspirin EC [Ecotrin Low Dose] 325 mg PO DAILY 10/13/16 [History] Furosemide [Lasix] 40 mg PO BID 05/03/18 [History] Potassium Chloride [K-Tab ER] 20 meq PO DAILY 05/03/18 [History] INSULIN ASPART (NovoLOG) [NovoLOG (formulary)] 0 unit SQ TID-W/MEALS PRN 12/05/18 [History] Insulin Glargine [Lantus] 30 unit SQ BID 12/03/20 [History] Ipratropium-Albuterol Nebulize [Duoneb 0.5 mg-3 mg/3 ml Soln] 3 ml INHALATION TID 12/03/20 [History] Simvastatin [Zocor] 20 mg PO HS 12/03/20 [History] Verapamil HCl [Calan] 120 mg PO BID 12/03/20 [History] Follow up Appointment(s)/Referral(s): Gil Fernandez MD [STAFF PHYSICIAN] - 12/14/20 Activity/Diet/Wound Care/Special Instructions: Home with Reynolds Discharge Disposition: HOME SELF-CARE
[2020-12-10 07:01] LABS: Glucose,Whole Blood 194 mg/dL (75-99)
[2020-12-10] MEDS: IPRATROPIUM-ALBUTEROL 3 ML NEB INHALATION SCH (07:45)
[2020-12-10 07:46] VITALS: BP 145/89; TEMP 97.8
[2020-12-10 07:48] VITALS: PULSE 68
[2020-12-10] MEDS: DOCUSATE 100 MG CAP PO SCH (08:20)
[2020-12-10] MEDS: INSULIN DETEMIR (LEVEMIR) 100 UNIT/ML SYR SQ SCH (08:20)
[2020-12-10] MEDS: FUROSEMIDE 40 MG TAB PO SCH (08:20)
[2020-12-10] MEDS: VERAPAMIL SR 120 MG TABLET.ER PO SCH (08:20)
[2020-12-10] MEDS ORDERED: POTASSIUM CHLORIDE ER 20 MEQ TAB.ER PO SCH (09:00)
== END 2020-12-10 09:38 | disposition home or self-care (01) ==
LOC: OR 08:52 → 6NMEDSUR 12:12 → OR 12-10 09:38
PROVIDERS: ATTEND Urology
DX: N40.1 Benign prostatic hyperplasia with lower urinary tract symptoms (principal); R33.8 Other retention of urine; E11.9 Type 2 diabetes mellitus without complications; J44.9 Chronic obstructive pulmonary disease, unspecified; I25.10 Atherosclerotic heart disease of native coronary artery without angina pectoris; I10 Essential (primary) hypertension; E78.5 Hyperlipidemia, unspecified; I25.2 Old myocardial infarction; Z87.01 Personal history of pneumonia (recurrent); G47.33 Obstructive sleep apnea (adult) (pediatric); Z99.89 Dependence on other enabling machines and devices; Z85.828 Personal history of other malignant neoplasm of skin; Z95.5 Presence of coronary angioplasty implant and graft; Z98.890 Other specified postprocedural states; Z82.3 Family history of stroke; Z82.49 Family history of ischemic heart disease and other diseases of the circulatory system; Z84.1 Family history of disorders of kidney and ureter; Z83.3 Family history of diabetes mellitus; Z79.82 Long term (current) use of aspirin; Z79.4 Long term (current) use of insulin; Z79.899 Other long term (current) drug therapy
CPT/HCPCS: 94640 ×3; 52601; J2250; J1100; J2405; J3010; J1580; J0290; J2704

== ENCOUNTER 2020-12-14 20:43 | Emergency (ER) | payer MEDICARE ==
[2020-12-14 22:40] VITALS: PULSE 64
--- NOTE | 2020-12-14 23:14 | ED ---
Male Urogenital HPI - General Chief complaint: Urogenital Stated complaint: Needs cath Time Seen by Provider: 12/14/20 22:38 Source: patient Mode of arrival: wheelchair Limitations: no limitations - Related Data Home Medications Medication Instructions Recorded Confirmed Aspirin EC [Ecotrin Low Dose] 325 mg PO DAILY 10/13/16 12/03/20 Furosemide [Lasix] 40 mg PO BID 05/03/18 12/09/20 Potassium Chloride [K-Tab ER] 20 meq PO DAILY 05/03/18 12/09/20 INSULIN ASPART (NovoLOG) [NovoLOG 0 unit SQ TID-W/MEALS PRN 12/05/18 12/09/20 (formulary)] Insulin Glargine [Lantus] 30 unit SQ BID 12/03/20 12/09/20 Ipratropium-Albuterol Nebulize 3 ml INHALATION TID 12/03/20 12/09/20 [Duoneb 0.5 mg-3 mg/3 ml Soln] Simvastatin [Zocor] 20 mg PO HS 12/03/20 12/09/20 Verapamil HCl [Calan] 120 mg PO BID 12/03/20 12/09/20 Allergies Allergy/AdvReac Type Severity Reaction Status Date / Time No Known Allergies Allergy Verified 12/03/20 15:24 Review of Systems ROS Statement: Those systems with pertinent positive or pertinent negative responses have been documented in the HPI. ROS Other: All systems not noted in ROS Statement are negative. Past Medical History Past Medical History: Coronary Artery Disease (CAD), COPD, Diabetes Mellitus, Hyperlipidemia, Hypertension, Myocardial Infarction ([place]), Pneumonia, Sleep Apnea/CPAP/BIPAP Additional Past Medical History / Comment(s): skin cancer from his scalp that has been removed Last Myocardial Infarction Date:: 2011 History of Any Multi-Drug Resistant Organisms: None Reported Past Surgical History: Cholecystectomy, Heart Catheterization With Stent, Hernia Repair Additional Past Surgical History / Comment(s): UMBILICAL HERNIA REPAIR .VASECTOMY, colonoscopy, skin ca on scalp removed. Past Anesthesia/Blood Transfusion Reactions: No Reported Reaction Date of Last Stent Placement:: 2011 Past Psychological History: No Psychological Hx Reported Smoking Status: Never smoker Past Alcohol Use History: None Reported Past Drug Use History: None Reported - Past Family History Father Family Medical History: CVA/TIA, Hypertension, Myocardial Infarction ([place]) Additional Family Medical History / Comment(s): AT AGE 73-[place] Mother Family Medical History: Renal Disease Additional Family Medical History / Comment(s): AT AGE 56 COMPLICATIONS FROM DIABETES General Exam Limitations: no limitations Course Vital Signs 12/14/20 22:35 Temperature 97.9 F Pulse Rate 64 Respiratory 18 Rate Blood Pressure 157/92 O2 Sat by Pulse 100 Oximetry Disposition Clinical Impression: Urinary retention Disposition: HOME SELF-CARE Condition: Good Instructions (If sedation given, give patient instructions): Urinary Retention in Men (ED) Is patient prescribed a controlled substance at d/c from ED?: No Referrals: Tomasz Isbell DO [Primary Care Provider] - 1-2 days
[2020-12-14 23:50] VITALS: BP 131/91; RESP 15; TEMP 98
== END 2020-12-14 23:30 | disposition home or self-care (01) ==
LOC: EC 20:43
DX: R33.9 Retention of urine, unspecified (principal); I10 Essential (primary) hypertension; I25.10 Atherosclerotic heart disease of native coronary artery without angina pectoris; E11.9 Type 2 diabetes mellitus without complications; E78.5 Hyperlipidemia, unspecified; J44.9 Chronic obstructive pulmonary disease, unspecified; I25.2 Old myocardial infarction; Z79.82 Long term (current) use of aspirin; Z79.4 Long term (current) use of insulin
CPT/HCPCS: 99283

== ENCOUNTER → 2022-03-25 | Outpatient (CLI) | payer MEDICARE ==
--- NOTE | 2022-03-25 11:49 | XR ---
EXAMINATION TYPE: XR chest 2V DATE OF EXAM: 03/25/2022 COMPARISON: Chest x-ray December 05, 2018 HISTORY: COPD. TECHNIQUE: Frontal and lateral views of the chest are obtained. FINDINGS: There is no suspicious focal air space opacity, pleural effusion, or pneumothorax seen. T he cardiac silhouette size is stable and mildly enlarged. The osseous structures are intact. IMPRESSION: Mild cardiomegaly without acute pulmonary process.
== END | disposition home or self-care (01) ==
LOC: RADXRMAIN 11:19
PROVIDERS: ATTEND Family Medicine
DX: J44.9 Chronic obstructive pulmonary disease, unspecified (principal)
CPT/HCPCS: 71046

== ENCOUNTER → 2023-03-24 | Outpatient (CLI) | payer MEDICARE ==
[2023-03-24 20:25] LABS: ALT 17 U/L (10-49); AST 16 U/L (14-35); Alkaline Phosphatase 72 U/L (41-126); BUN/Creat Ratio 21.62 Ratio (12.00-20.00); Blood Urea Nitrogen 51.9 mg/dL (9.0-27.0); Calcium 8.8 mg/dL (8.7-10.3); Carbon Dioxide 22.8 mmol/L (21.6-31.8); Chloride 102 mmol/L (96-109); Globulin 2.5 d/dL (1.6-3.3); Glucose 338 mg/dL (70-110); Potassium 4.4 mmol/L (3.5-5.5); Sodium 139 mmol/L (135-145); Total Bilirubin 0.4 mg/dL (0.3-1.2); Total Protein 6.5 d/dL (6.2-8.2)
== END | disposition home or self-care (01) ==
LOC: LABWHC1 09:21
PROVIDERS: ATTEND Internal Medicine Endocrinology, Diabetes & Metabolism
DX: E11.65 Type 2 diabetes mellitus with hyperglycemia (principal)
CPT/HCPCS: 36415; 80053; 84443

== ENCOUNTER → 2023-07-06 | Outpatient (CLI) | payer MEDICARE ==
[2023-07-06 18:40] LABS: ALT 27 U/L (10-49); AST 14 U/L (14-35); Albumin/Globulin Ratio 1.54 Ratio (1.60-3.17); Alkaline Phosphatase 72 U/L (41-126); BUN/Creat Ratio 32.35 Ratio (12.00-20.00); Blood Urea Nitrogen 84.1 mg/dL (9.0-27.0); Carbon Dioxide 20.9 mmol/L (21.6-31.8); Chloride 108 mmol/L (96-109); Chol/HDL Ratio 1.96 Ratio; Globulin 2.6 d/dL (1.6-3.3); Glucose 149 mg/dL (70-110); Potassium 4.8 mmol/L (3.5-5.5); Sodium 144 mmol/L (135-145); Total Bilirubin 0.3 mg/dL (0.3-1.2); Total Protein 6.6 d/dL (6.2-8.2)
== END | disposition home or self-care (01) ==
LOC: LABWHC1 08:53
PROVIDERS: ATTEND Internal Medicine Endocrinology, Diabetes & Metabolism
DX: E11.65 Type 2 diabetes mellitus with hyperglycemia (principal)
CPT/HCPCS: 36415; 80053; 80061; 83036; 84443

== ENCOUNTER → 2023-07-07 | Outpatient (CLI) | payer MEDICARE ==
[2023-07-08 06:01] LABS: Urine Creatinine 47.7 mg/dL (39.0-259.0)
== END | disposition home or self-care (01) ==
LOC: LABPRL 11:19
PROVIDERS: ATTEND Internal Medicine Endocrinology, Diabetes & Metabolism
DX: E11.65 Type 2 diabetes mellitus with hyperglycemia (principal)
CPT/HCPCS: 82043; 82570

== ENCOUNTER → 2023-07-11 | Outpatient (CLI) | payer MEDICARE ==
--- NOTE | 2023-07-11 15:02 | US ---
EXAMINATION TYPE: US renals and bladder DATE OF EXAM: 07/11/2023 COMPARISON: NONE CLINICAL INDICATION: Male, 78 years old with history of N17.9 ACUTE KIDNEY INJURY; Patient denies any signs or symptoms. EXAM MEASUREMENTS: Right Kidney: 9.47 x 5.55 x 5.47 cm Left Kidney: 9.29 x 6.41 x 5.87 cm Right Kidney: 9.47 x 5.55 x 5.47 cm Left Kidney: 9.29 x 6.41 x 5.87 cm Bladder: WNL Bilateral Jets seen: YES There is no evidence for hydronephrosis at this point in time. No nephrolithiasis is seen. No wilver s are identified. The urinary bladder is anechoic. Bilateral ureteral jets are seen. IMPRESSION: No discrete abnormality seen.
[2023-07-11 19:17] LABS: HCT 39.1 % (39.6-50.0); HGB 12.6 d/dL (13.0-17.0); MCH 29.6 pg (27.0-32.0); MCHC 32.2 d/dL (32.0-37.0); MCV 91.8 FL (80.0-97.0); Mean Platelet Volume 9.1 FL (9.5-12.2); NRBC Per 100 WBC 0 X 10*3/uL (0.00-0.01); Platelet Count 206 X 10*3/uL (140-440); RBC 4.26 X 10*6/uL (4.40-5.60); RDW 14.9 % (11.5-14.5); WBC 13.12 X 10*3/uL (4.50-10.00)
[2023-07-11 19:53] LABS: % Iron Saturation 13.66 (15.00-50.00); ALT 28 U/L (10-49); AST 19 U/L (14-35); Albumin 4.1 d/dL (3.8-4.9); Albumin/Globulin Ratio 1.71 Ratio (1.60-3.17); Alkaline Phosphatase 72 U/L (41-126); BUN/Creat Ratio 28.61 Ratio (12.00-20.00); Blood Urea Nitrogen 65.8 mg/dL (9.0-27.0); Calcium 8.7 mg/dL (8.7-10.3); Carbon Dioxide 20.4 mmol/L (21.6-31.8); Chloride 103 mmol/L (96-109); Globulin 2.4 d/dL (1.6-3.3); Glucose 165 mg/dL (70-110); Iron 44 UG/DL (65-175); Magnesium 2.1 mg/dL (1.5-2.4); Phosphorus 4.3 mg/dL (2.4-5.1); Potassium 5.3 mmol/L (3.5-5.5); Sodium 137 mmol/L (135-145); Total Bilirubin 0.3 mg/dL (0.3-1.2); Total Iron Binding Capacity 322 UG/DL (228-460); Total Protein 6.5 d/dL (6.2-8.2); Uric Acid 5.9 mg/dL (3.7-8.7)
== END | disposition home or self-care (01) ==
LOC: RADUSWWP 13:44
PROVIDERS: ATTEND Internal Medicine Nephrology
DX: N17.9 Acute kidney failure, unspecified (principal)
CPT/HCPCS: 76770; 80053; 82306; 82728; 83540; 83550; 83735; 83970; 84100; 84550; 85027

== ENCOUNTER → 2024-01-31 | Outpatient (CLI) | payer MEDICARE ==
[2024-01-31 15:01] LABS: BUN/Creat Ratio 26.45 Ratio (12.00-20.00); Blood Urea Nitrogen 76.7 mg/dL (9.0-27.0); Chloride 103 mmol/L (96-109); Glucose 175 mg/dL (70-110); Potassium 4.3 mmol/L (3.5-5.5); Sodium 142 mmol/L (135-145)
[2024-01-31 15:02] LABS: Calcium 8.7 mg/dL (8.7-10.3)
== END | disposition home or self-care (01) ==
LOC: LABWHC1 10:48
PROVIDERS: ATTEND Nurse Practitioner Family
DX: N18.32 Chronic kidney disease, stage 3b (principal)
CPT/HCPCS: 36415; 80048

== ENCOUNTER 2024-03-13 11:17 | Inpatient (IN) | payer MEDICARE ==
[2024-03-13] MEDS: IPRATROPIUM-ALBUTEROL 3 ML NEB INHALATION STA (12:05)
[2024-03-13] MEDS: methylPREDNISolone SOD SUCCI 125 MG/2 ML VIAL IV STA (12:05)
[2024-03-13 12:13] LABS: ABG Base Excess -4.1 mmol/L; ABG HCO3 21 mmol/L (21-25); ABG PCO2 37 mmHg (35-45); ABG PH 7.36 (7.35-7.45); ABG PO2 93 mmHg (83-108); ABG TCO2 22 mmol/L (19-24); Allen Test Performed? Yes
[2024-03-13 12:27] LABS: INR 1.1 (<1.2); Partial Thromboplastin Time 27.8 sec (22.0-30.0); Prothrombin Time 12.1 sec (10.0-12.5)
[2024-03-13 12:48] LABS: Basophils # (A) 0.1 k/uL (0-0.2); Basophils % (A) 1 %; Eosinophils # (A) 0.1 k/uL (0-0.7); Eosinophils % (A) 1 %; HCT 40.5 % (39.0-53.0); HGB 12.8 gm/dL (13.0-17.5); Lymphocytes # (A) 0.9 k/uL (1.0-4.8); Lymphocytes % (A) 7 %; MCH 29.5 pg (25.0-35.0); MCHC 31.6 g/dL (31.0-37.0); MCV 93.6 fL (80.0-100.0); Mean Platelet Volume 7.2; Monocytes # (A) 0.7 k/uL (0-1.0); Monocytes % (A) 6 %; Neutrophils # (A) 9.8 k/uL (1.3-7.7); Neutrophils % (A) 81 %; Platelet Count 274 k/uL (150-450); RBC 4.33 m/uL (4.30-5.90); RDW 15.2 % (11.5-15.5); WBC 12.1 k/uL (3.8-10.6)
--- NOTE | 2024-03-13 12:51 | XR ---
EXAMINATION TYPE: XR chest 2V DATE OF EXAM: 03/13/2024 12:42 PM CLINICAL INDICATION:Male, 78 years old with history of difficulty breathing; [facility] COMPARISON: Chest radiographs from 03/25/2022 TECHNIQUE: XR chest 2V Frontal and lateral views of the chest. FINDINGS: Lungs/Pleura: There is no evidence of pleural effusion, focal consolidation, or pneumothorax. Pulmonary vascularity: Unremarkable. Heart/mediastinum: Cardiomediastinal silhouette is enlarged and stable. Musculoskeletal: No acute osseous pathology. IMPRESSION: Low lung volumes with a generalized hazy appearance which could represent atelectasis versus pulmonar y edema correlate with serum BNP.
[2024-03-13 12:56] LABS: ALT 21 U/L (4-49); AST 26 U/L (17-59); African American GFR (CKD) 14 (>60 ml/min/1.73 sqM); Albumin 3.6 g/dL (3.5-5.0); Alkaline Phosphatase 63 U/L (38-126); Anion Gap 13 mmol/L; Blood Urea Nitrogen 87 mg/dL (9-20); Calcium 8.4 mg/dL (8.4-10.2); Carbon Dioxide 20 mmol/L (22-30); Chloride 110 mmol/L (98-107); Glucose 72 mg/dL (74-99); Non-African American GFR(CKD) 12 (>60 ml/min/1.73 sqM); Potassium 4.2 mmol/L (3.5-5.1); Sodium 143 mmol/L (137-145); Total Bilirubin 0.8 mg/dL (0.2-1.3); Total Protein 6.3 g/dL (6.3-8.2)
[2024-03-13 13:01] LABS: NT-Pro-B-Type Natriuretic Pept 4860 pg/mL
--- NOTE | 2024-03-13 13:49 | ED ---
General Adult HPI - General Chief complaint: Shortness of Breath Stated complaint: Dizziness Time Seen by Provider: 03/13/24 11:34 Source: patient, RN notes reviewed Mode of arrival: wheelchair Limitations: no limitations - History of Present Illness Initial comments: 78-year-old male presents emergency department with family for shortness of breath. Patient been having worsening shortness of breath over last several days. Patient wakes up in the morning very confused and disorientated but does improve after multiple breathing treatments and several hours. Patient does have a history of COPD, CHF. Patient states he has had increasing wheezing, gurgling sounds. Patient denies any fevers denies any nausea vomiting. Patient does have minimal leg swelling - Related Data Home Medications Medication Instructions Recorded Confirmed Furosemide [Lasix] 40 mg PO BID-W/MEALS 05/03/18 03/13/24 Aspirin EC [Ecotrin] 325 mg PO DAILY 03/13/24 03/13/24 Dapagliflozin Propanediol [Farxiga] 10 mg PO DAILY 03/13/24 03/13/24 Ferrous Sulfate [Feosol] 325 mg PO DAILY 03/13/24 03/13/24 Insulin Glargine,Hum.rec.anlog 60 units SQ DAILY 03/13/24 03/13/24 [Lantus Solostar Pen] Tamsulosin HCl [Flomax] 0.4 mg PO BID-W/MEALS 03/13/24 03/13/24 Verapamil Sr [Isoptin Sr] 120 mg PO BID-W/MEALS 03/13/24 03/13/24 calcitrioL 0.25 mcg PO DAILY 03/13/24 03/13/24 glipiZIDE [Glucotrol] 5 mg PO AC-BID 03/13/24 03/13/24 lisinopriL [Zestril] 2.5 mg PO DAILY 03/13/24 03/13/24 Allergies Allergy/AdvReac Type Severity Reaction Status Date / Time No Known Allergies Allergy Verified 03/13/24 13:26 Review of Systems ROS Statement: Those systems with pertinent positive or pertinent negative responses have been documented in the HPI. ROS Other: All systems not noted in ROS Statement are negative. Past Medical History Past Medical History: Coronary Artery Disease (CAD), COPD, Diabetes Mellitus, Hyperlipidemia, Hypertension, Myocardial Infarction (OK), Pneumonia, Sleep Apnea/CPAP/BIPAP Additional Past Medical History / Comment(s): skin cancer from his scalp that has been removed Last Myocardial Infarction Date:: 2011 History of Any Multi-Drug Resistant Organisms: None Reported Past Surgical History: Cholecystectomy, Heart Catheterization With Stent, Hernia Repair Additional Past Surgical History / Comment(s): UMBILICAL HERNIA REPAIR.VA SECTOMY, colonoscopy, skin ca on scalp removed. Past Anesthesia/Blood Transfusion Reactions: No Reported Reaction Date of Last Stent Placement:: 2011 Past Psychological History: No Psychological Hx Reported Smoking Status: Never smoker Past Alcohol Use History: None Reported Past Drug Use History: None Reported - Past Family History Father Family Medical History: CVA/TIA, Hypertension, Myocardial Infarction ([place]) Additional Family Medical History / Comment(s): AT AGE 73-[place] Mother Family Medical History: Renal Disease Additional Family Medical History / Comment(s): AT AGE 56 COMPLICATIONS FROM DIABETES General Exam Limitations: no limitations General appearance: alert, in distress Head exam: Present: atraumatic, normocephalic, normal inspection Eye exam: Present: normal appearance, PERRL, EOMI. Absent: scleral icterus, conjunctival injection, periorbital swelling ENT exam: Present: normal exam, mucous membranes moist Neck exam: Present: normal inspection. Absent: tenderness, meningismus, lymphadenopathy Respiratory exam: Present: respiratory distress, wheezes, rales. Absent: rhonchi, stridor Cardiovascular Exam: Present: irregular rhythm, normal heart sounds. Absent: regular rate, normal rhythm, systolic murmur, diastolic murmur, rubs, gallop, clicks GI/Abdominal exam: Present: soft, normal bowel sounds. Absent: distended, tenderness, guarding, rebound, rigid Course Vital Signs 03/13/24 03/13/24 03/13/24 11:23 11:54 12:05 Temperature 98.3 F Pulse Rate 54 L 86 Respiratory 18 20 Rate Blood Pressure 106/67 O2 Sat by Pulse 95 Oximetry 03/13/24 03/13/24 12:19 13:15 Temperature Pulse Rate 85 92 Respiratory 22 Rate Blood Pressure 108/71 O2 Sat by Pulse 94 L Oximetry EKG Findings - EKG Comments: EKG Findings:: EKG performed at 11: 41 A-fib with a rate of 89 QRS 120 QT/QTc 367/414 - EKG Results: EKG: interpreted by BARBARA Medical Decision Making - Medical Decision Making Was pt. sent in by a medical professional or institution (, MEGAN, RETAIL TIRE SALES MANAGER, urgent care, hospital, or [facility]...) When possible be specific @ -No Did you speak to anyone other than the patient for history (EMS, parent, family, police, friend...)? What history was obtained from this source @ -No Did you review nursing and triage notes (agree or disagree)? Why? @ -I reviewed and agree with nursing and triage notes Were old charts reviewed (outside hosp., previous admission, EMS record, old EKG, old radiological studies, urgent care reports/EKG's, [facility] records)? Report findings @ -No old charts were reviewed Differential Diagnosis (chest pain, altered mental status, abdominal pain women, abdominal pain men, vaginal bleeding, weakness, fever, dyspnea, syncope, headache, dizziness, GI bleed, back pain, seizure, CVA, palpatations, mental health, musculoskeletal)? @ -Differential Dyspnea: Coronary syndrome, arrhythmia, tamponade, asthma, COPD, pulmonary embolism, pneumonia, pneumothorax, pulmonary effusion, anaphylaxis, diabetic ketoacidosis, flailed chest, pulmonary contusion, diaphragmatic rupture, anemia, neuromuscular, this is not meant to be an all-inclusive list. EKG interpreted by me (3pts min.). @ -As above X-rays interpreted by me (1pt min.). @ -Chest x-ray shows mild pulmonary edema CT interpreted by me (1pt min.). @ -None done U/S interpreted by me (1pt. min.). @ -None done What testing was considered but not performed or refused? (CT, X-rays, U/S, labs)? Why? @ -None What meds were considered but not given or refused? Why? @ -None Did you discuss the management of the patient with other professionals (professionals i.e. MEGAN Sandoval, RETAIL TIRE SALES MANAGER, lab, RT, psych nurse, social service technician, wall worker, teacher, commissioned fire officer, mental health case manager)? Give summary @ -[facility]H for admission Was smoking cessation discussed for >3mins.? @ -No Was critical care preformed (if so, how long)? @ -No Were there social determinants of health that impacted care today? How? (Homelessness, low income, unemployed, alcoholism, drug addiction, transportation, low edu. Level, literacy, decrease access to med. care, intermediate, rehab)? @ -No Was there de-escalation of care discussed even if they declined (Discuss DNR or withdrawal of care, Hospice)? DNR status @ -No What co-morbidities impacted this encounter? (DM, HTN, Smoking, COPD, CAD, Cancer, CVA, ARF, Chemo, Hep., AIDS, mental health diagnosis, sleep apnea, morbid obesity)? @ -A-fib, COPD, CHF Was patient admitted / discharged? Hospital course, mention meds given and route, prescriptions, significant lab abnormalities, going to OR and other pertinent info. @ -Admitted patient is found to have acute respiratory distress, patient has a history of COPD with COPD exacerbation patient was given multiple breathing treatments, steroids. X-ray shows mild pulmonary edema will be given Lasix, patient does have acute kidney injury from baseline. Patient will have cardiology evaluation, pulmonary and nephrology. Patient has been having confusion overnight in the morning concerning for hypoxic events and possible CO2 retaining may require sleep study Undiagnosed new problem with uncertain prognosis? @ -No Drug Therapy requiring intensive monitoring for toxicity (Heparin, Nitro, Insulin, Cardizem)? @ -No Were any procedures done? @ -No Diagnosis/symptom? @ -COPD exacerbation, CHF, elevated troponin, acute kidney injury Acute, or Chronic, or Acute on Chronic? @ -Acute Uncomplicated (without systemic symptoms) or Complicated (systemic symptoms)? @ -Complicated Side effects of treatment? @ -No Exacerbation, Progression, or Severe Exacerbation? @ -Exacerbation COPD/CHF Poses a threat to life or bodily function? How? (Chest pain, [place], [place], pneumonia, PE, COPD, DKA, ARF, appy, cholecystitis, CVA, Diverticulitis, Homicidal, Moe icidal, threat to staff... and all critical care pts) @ -Yes possible respiratory failure - Lab Data Result diagrams: 03/13/24 11:43 03/13/24 11:43 Lab Results 03/13/24 03/13/24 03/13/24 Range/Units 11:43 11:43 11:43 WBC 12.1 H (3.8-10.6) k/uL RBC 4.33 (4.30-5.90) m/uL Hgb 12.8 L (13.0-17.5) gm/dL Hct 40.5 (39.0-53.0) % MCV 93.6 (80.0-100.0) fL MCH 29.5 (25.0-35.0) pg MCHC 31.6 (31.0-37.0) g/dL RDW 15.2 (11.5-15.5) % Plt Count 274 (150-450) k/uL MPV 7.2 Neutrophils % 81 % Lymphocytes % 7 % Monocytes % 6 % Eosinophils % 1 % Basophils % 1 % Neutrophils # 9.8 H (1.3-7.7) k/uL Lymphocytes # 0.9 L (1.0-4.8) k/uL Monocytes # 0.7 (0-1.0) k/uL Eosinophils # 0.1 (0-0.7) k/uL Basophils # 0.1 (0-0.2) k/uL PT 12.1 (10.0-12.5) sec INR 1.1 (<1.2) APTT 27.8 (22.0-30.0) sec Sample Site ABG pH (7.35-7.45) ABG pCO2 (35-45) mmHg ABG pO2 (83-108) mmHg ABG HCO3 (21-25) mmol/L ABG Total CO2 (19-24) mmol/L ABG O2 Saturation (94-97) % ABG Base Excess mmol/L Reginaldo Test FiO2 % Sodium 143 (137-145) mmol/L Potassium 4.2 (3.5-5.1) mmol/L Chloride 110 H (98-107) mmol/L Carbon Dioxide 20 L (22-30) mmol/L Anion Gap 13 mmol/L BUN 87 H (9-20) mg/dL Creatinine 4.44 H (0.66-1.25) mg/dL Est GFR (CKD-EPI)AfAm 14 (>60 ml/min/1.73 sqM) Est GFR (CKD-EPI)NonAf 12 (>60 ml/min/1.73 sqM) Glucose 72 L (74-99) mg/dL Plasma Lactic Acid Yuri (0.7-2.0) mmol/L Calcium 8.4 (8.4-10.2) mg/dL Magnesium 2.0 (1.6-2.3) mg/dL Total Bilirubin 0.8 (0.2-1.3) mg/dL AST 26 (17-59) U/L ALT 21 (4-49) U/L Alkaline Phosphatase 63 (38-126) U/L Troponin I (0.000-0.034) ng/mL NT-Pro-B Natriuret Pep 4860 pg/mL Total Protein 6.3 (6.3-8.2) g/dL Albumin 3.6 (3.5-5.0) g/dL 03/13/24 03/13/24 03/13/24 Range/Units 11:43 11:43 12:09 WBC (3.8-10.6) k/uL RBC (4.30-5.90) m/uL Hgb (13.0-17.5) gm/dL Hct (39.0-53.0) % MCV (80.0-100.0) fL MCH (25.0-35.0) pg MCHC (31.0-37.0) g/dL RDW (11.5-15.5) % Plt Count (150-450) k/uL MPV Neutrophils % % Lymphocytes % % Monocytes % % Eosinophils % % Basophils % % Neutrophils # (1.3-7.7) k/uL Lymphocytes # (1.0-4.8) k/uL Monocytes # (0-1.0) k/uL Eosinophils # (0-0.7) k/uL Basophils # (0-0.2) k/uL PT (10.0-12.5) sec INR (<1.2) APTT (22.0-30.0) sec Sample Site Right Radial ABG pH 7.36 (7.35-7.45) ABG pCO2 37 (35-45) mmHg ABG pO2 93 (83-108) mmHg ABG HCO3 21 (21-25) mmol/L ABG Total CO2 22 (19-24) mmol/L ABG O2 Saturation 98.0 H (94-97) % ABG Base Excess -4.1 mmol/L Reginaldo Test Yes FiO2 30 % Sodium (137-145) mmol/L Potassium (3.5-5.1) mmol/L Chloride (98-107) mmol/L Carbon Dioxide (22-30) mmol/L Anion Gap mmol/L BUN (9-20) mg/dL Creatinine (0.66-1.25) mg/dL Est GFR (CKD-EPI)AfAm (>60 ml/min/1.73 sqM) Est GFR (CKD-EPI)NonAf (>60 ml/min/1.73 sqM) Glucose (74-99) mg/dL Plasma Lactic Acid Yuri 2.2 H* (0.7-2.0) mmol/L Calcium (8.4-10.2) mg/dL Magnesium (1.6-2.3) mg/dL Total Bilirubin (0.2-1.3) mg/dL AST (17-59) U/L ALT (4-49) U/L Alkaline Phosphatase (38-126) U/L Troponin I 0.052 H* (0.000-0.034) ng/mL NT-Pro-B Natriuret Pep pg/mL Total Protein (6.3-8.2) g/dL Albumin (3.5-5.0) g/dL Disposition Clinical Impression: Acute exacerbation of chronic obstructive airways disease, NANCY (acute kidney injury), CHF (congestive heart failure), Elevated troponin Disposition: ADMITTED IP TO THIS HOSP Condition: Poor Referrals: Tomasz Isbell DO [Primary Care Provider] - 1-2 days Time of Disposition: 13:49
[2024-03-13] MEDS ORDERED: IPRATROPIUM-ALBUTEROL 3 ML NEB INHALATION PRN (13:51)
[2024-03-13] MEDS: IPRATROPIUM-ALBUTEROL 3 ML NEB INHALATION PRN (14:08)
[2024-03-13] MEDS: IPRATROPIUM-ALBUTEROL 3 ML NEB INHALATION SCH (14:08)
[2024-03-13] MEDS: FUROSEMIDE 10 MG/ML 4 ML VIAL IV STA (14:45)
[2024-03-13] MEDS ORDERED: DEXTROSE 50% SYRINGE 50 ML IVP PRN (16:38)
[2024-03-13] MEDS: BUDESONIDE 1 MG/2 ML NEBU INHALATION SCH (16:53)
[2024-03-13] MEDS: FORMOTEROL FUMARATE 20 MCG/2 ML NEBU INHALATION SCH (16:53)
[2024-03-13 16:57] LABS: Glucose,Whole Blood 211 mg/dL (70-110)
[2024-03-13] MEDS: PANTOPRAZOLE 40 MG/10 ML VIAL IVP SCH (17:06)
[2024-03-13] MEDS: INSULIN ASPART (NovoLOG) 100 UNIT/ML VIAL SQ SCH (17:06)
[2024-03-13] MEDS: TAMSULOSIN 0.4 MG CAP.ER.24H PO SCH (17:07)
[2024-03-13] MEDS: methylPREDNISolone SOD SUCCI 125 MG/2 ML VIAL IV SCH (18:12)
[2024-03-13 18:28] LABS: Appearance,Urine Turbid (Clear); Bacteria,Urine Many /hpf; Bilirubin,Urine Negative (Negative); Blood,Urine Moderate (Negative); Color,Urine Colorless; Glucose,Urine (UA) Negative (Negative); Ketones,Urine Negative (Negative); Leukocyte Esterase,Urine Large (Negative); Mucus,Urine Rare /hpf; Nitrite,Urine Positive (Negative); PH, Urine 5.5 (5.0-8.0); Protein,Urine 1+ (Negative); RBC,Urine 12 /hpf (0-5); Specific Gravity,Urine 1.016 (1.001-1.035); Squamous Epithelial Cell,Urine 2 /hpf (0-4); Urobilinogen,Urine <2.0 mg/dL (<2.0); WBC,Urine >182 /hpf (0-5)
[2024-03-13 20:49] LABS: Glucose,Whole Blood 343 mg/dL (70-110)
--- NOTE | 2024-03-14 00:34 | HP ---
HISTORY AND PHYSICAL CHIEF COMPLAINT: Shortness of breath and dizziness. HISTORY OF PRESENT ILLNESS: This is an 78-year-old gentleman with a past medical history of COPD, CHF exacerbation, getting progressively short of breath over the past several days. The patient also has cough with mucopurulent sputum. The patient also has some disorientation because of increasing wheezing and gurgling sounds. The patient was taken to [facility] and admitted for further evaluation and treatment. A chest x-ray done in the ER which I reviewed personally showed COPD and possible pulmonary edema. Also, BNP was 4860. Troponins were found to be 0.052. The patient was admitted for further evaluation and treatment. Creatinine is found to be 4.45 indicating acute on chronic kidney disease, the baseline creatinine was around 1 and 2 last year. There is no history of any fever, rigors, or chills. PAST MEDICAL HISTORY: COPD, CHF, rest of the history and rest of the chart is also reviewed. HOME MEDICATIONS: Reviewed include Flomax, dose and rest of medications reviewed. ALLERGIES: None. FAMILY HISTORY: History of hypertension. SOCIAL HISTORY: No history of smoking or alcohol. REVIEW OF SYSTEMS: A 14-point review is negative except as mentioned earlier. PHYSICAL EXAMINATION: VITAL SIGNS: Pulse 77, blood pressure 107/50, respirations 20. HEENT: Conjunctivae normal. NECK: No jugular venous distention. CARDIOVASCULAR: S1, S2. RESPIRATIONS: Diminished with some markedly increased bilateral scattered rhonchi. ABDOMEN: Soft, significant distention noted. No guarding, no rigidity. Bowel sounds diminished. No ascites. LEGS: Minimal bilateral leg edema. NERVOUS SYSTEM: Diffusely weak. SKIN: No ulcer, rash, bleeding. JOINTS: No active deforming arthropathy. LABORATORY DATA: WBC 12.0, rest of the labs are noted. ASSESSMENT: 1. Shortness of breath, possibly combination of COPD acute exacerbation as well as CHF acute exacerbation. 2. Acute on chronic renal failure. 3. Chronic kidney disease stage 3 baseline. 4. Elevated plasma, lactic acid. 5. Troponin 0.05, indeterminate. 6. Coronary artery disease. 7. Diabetes mellitus, type 2. 8. Hypertension. 9. Hyperlipidemia. 10.History of myocardial infarction. 11.History of sleep apnea. 12.History of CAD stent. RECOMMENDATIONS AND DISCUSSION: This 78-year-old gentleman presented with multiple complex medical issues, we will monitor the patient closely. I would recommend intensive bronchodilator treatment, IV steroids, empiric antibiotics will be given. Sputum culture will be obtained. I would also get Pulmonary and Cardiology consultation. Nephrology also will be consulted. Avoid nephrotoxic medications. Overall prognosis extremely guarded because of multiple complex medical issues as listed above. We will continue to monitor. Further recommendations to follow. Repeat labs will be ordered. DVT prophylaxis. Discussed with the family at length and further recommendations to follow. MMODL / IJN: [id number] /
[2024-03-14 05:49] LABS: Glucose,Whole Blood 280 mg/dL (70-110)
--- NOTE | 2024-03-14 06:13 | P.CNPUL ---
History of Present Illness Consult date: 03/14/24 Requesting physician: Salo Hannon Reason for consult: COPD Chief complaint: Altered mental status, shortness of breath History of present illness: Patient is an 78-year-old white male with past medical history significant for COPD, obstructive sleep apnea, coronary artery disease, hypertension, hyperlipidemia, chronic kidney disease, BPH and previous TURP. His primary care provider is Dr. Isbell. Did follow with Dr. Delacruz in the pulmonary office in the past, but has not been back in some time. He is known to have moderate COPD. Patient presented to emergency room yesterday complaining of about 4 weeks of worsening shortness of breath. Accompanied by chest tightness, wheezing, cough with green phlegm. Chest x-ray on arrival showed low lung volumes and general hazy appearance, atelectasis versus pulmonary edema. Also, noted to be more confused at home. ABG was drawn in the emergency department, with a PaO2 of 93, pCO2 of 37, pH of 7.36. He is also has had issues with fr equent urination and incomplete voiding. He has history of urinary retention and underwent previous TURP in the past. Denies any burning or dysuria. Denies suprapubic pain. Denies fevers. Urinalysis positive for leukocyte esterase and bacteria. CBC: WBC count 12.1, hemoglobin 12.8, hematocrit 40.5, platelets 274. CMP: Sodium 143, potassium 4.2, chloride 110, serum bicarb 20, BUN 87, creatin ine 4.44, glucose 72. Does have an indwelling urinary catheter. lactic 2. LFTs not elevated. Troponin 0.047. NT proBNP 4860. Negative for influenza, RSV, COVID. He is currently sitting up at the edge of the bed, reportedly just got up to use the bathroom. Seems to be oriented. He is on 2 L/min nasal cannula. SpO2 is 98%. He has audible wheezing. Vital signs are stable. Review of Systems REVIEW OF SYSTEMS: CONSTITUTIONAL: Denies any recent significant weight loss or weight gain. EYES: Denies change in vision. EARS, NOSE, MOUTH, THROAT: Denies headaches, denies sore throat. CARDIOVASCULAR: Denies chest pain, palpitations, lightheadedness, syncopal episodes, lower extremity swelling, orthopnea. RESPIRATORY: See HPI GASTROINTESTINAL: Denies change in appetite, abdominal pain, nausea and vomiting, or diarrhea GENITOURINARY: Admits urinary frequency and incomplete voiding. Denies any dysuria or suprapubic pain. Denies any hematuria. MUSKULOSKELETAL: Denies pain, denies swelling. INTEGUMENTARY: Denies rash, denies eczema. NEUROLOGICAL: Denies recent memory loss, no recent seizure activity. PSYCHIATRIC: Denies anxiety, denies depression. HEMATOLOGIC/LYMPHATIC: Denies anemia, denies enlarged lymph node Past Medical History Past Medical History: Coronary Artery Disease (CAD), COPD, Diabetes Mellitus, Hyperlipidemia, Hypertension, Myocardial Infarction ([place]), Pneumonia, Sleep Apnea/CPAP/BIPAP Additional Past Medical History / Comment(s): skin cancer from his scalp that has been removed Last Myocardial Infarction Date:: 2011 History of Any Multi-Drug Resistant Organisms: None Reported Past Surgical History: Cholecystectomy, Heart Catheterization With Stent, Hernia Repair Additional Past Surgical History / Comment(s): UMBILICAL HERNIA REPAIR.VASECTOMY, colonoscopy, skin ca on scalp removed. Past Anesthesia/Blood Transfusion Reactions: No Reported Reaction Date of Last Stent Placement:: 2011 Past Psychological History: No Psychological Hx Reported Additional Psychological History / Comment(s): lives with his . has nebulizer, glucometer and cpap Smoking Status: Never smoker Past Alcohol Use History: None Reported Additional Past Alcohol Use History / Comment(s): Patient is a lifelong nonsmok er. He worked [employer]. Past Drug Use History: None Reported - Past Family History Father Family Medical History: CVA/TIA, Hypertension, Myocardial Infarction ([place]) Additional Family Medical History / Comment(s): AT AGE 73-[place] Mother Family Medical History: Renal Disease Additional Family Medical History / Comment(s): AT AGE 56 COMPLICATIONS FROM DIABETES Medications and Allergies Home Medications Medication Instructions Recorded Confirmed Type Furosemide [Lasix] 40 mg PO BID-W/MEALS 05/03/18 03/13/24 History Aspirin EC [Ecotrin] 325 mg PO DAILY 03/13/24 03/13/24 History Dapagliflozin Propanediol [Farxiga] 10 mg PO DAILY 03/13/24 03/13/24 History Ferrous Sulfate [Feosol] 325 mg PO DAILY 03/13/24 03/13/24 History Insulin Glargine,Hum.rec.anlog 60 units SQ DAILY 03/13/24 03/13/24 History [Lantus Solostar Pen] Tamsulosin HCl [Flomax] 0.4 mg PO BID-W/MEALS 03/13/24 03/13/24 History Verapamil Sr [Isoptin Sr] 120 mg PO BID-W/MEALS 03/13/24 03/13/24 History calcitrioL 0.25 mcg PO DAILY 03/13/24 03/13/24 History glipiZIDE [Glucotrol] 5 mg PO AC-BID 03/13/24 03/13/24 History lisinopriL [Zestril] 2.5 mg PO DAILY 03/13/24 03/13/24 History Allergies Allergy/AdvReac Type Severity Reaction Status Date / Time No Known Allergies Allergy Verified 03/13/24 13:26 Physical Exam Vitals: Vital Signs Temp Pulse Pulse Resp BP BP Pulse Ox 03/14/24 04:00 97.6 F 78 14 107/70 98 03/14/24 00:07 97.7 F 73 18 114/62 98 03/13/24 22:25 98.3 F 76 20 127/75 98 03/13/24 21:58 64 03/13/24 21:51 64 18 116/71 95 03/13/24 21:46 65 03/13/24 20:32 64 18 112/63 99 03/13/24 18:15 68 18 109/74 95 03/13/24 17:10 71 20 109/73 96 03/13/24 16:36 75 18 99/64 94 L 03/13/24 14:20 86 03/13/24 14:17 77 20 107/50 98 03/13/24 14:08 80 03/13/24 13:15 92 22 108/71 94 L 03/13/24 12:19 85 03/13/24 12:05 86 03/13/24 11:54 20 03/13/24 11:23 98.3 F 54 L 18 106/67 95 Intake and Output 03/13/24 03/13/24 03/14/24 14:59 22:59 06:59 Other: Voiding Method Indwelling Catheter # Bowel Movements 1 Weight 136.078 kg 136.078 kg GENERAL EXAM: Alert, 78-year-old white male, sitting at the edge of the bed, in a mild amount of respiratory distress. HEAD: Normocephalic and atraumatic EYES: Normal reaction of pupils, equal size. NOSE: Clear with pink turbinates. THROAT: No erythema or exudates. NECK: No masses, no JVD. CHEST: No chest wall deformity. LUNGS: Equal air entry with diffuse bilateral expiratory wheezes. On 2 L/min nasal cannula. Speaks in short phrases. Tripoding. CVS: S1 and S2 normal with no audible murmur, regular rhythm. No extra heart sounds ABDOMEN: No hepatosplenomegaly, active bowel sounds, no guarding or rigidity. SPINE: No scoliosis or deformity SKIN: No rashes CENTRAL NERVOUS SYSTEM: No focal deficits, tone is normal in all 4 extremities. EXTREMITIES: There is no peripheral edema, clubbing, or cyanosis. Peripheral pulses are intact. Results - Laboratory Findings CBC and BMP: 03/13/24 11:43 03/13/24 11:43 ABG ABG pH 7.36 (7.35-7.45) 03/13/24 12:09 ABG pCO2 37 mmHg (35-45) 03/13/24 12:09 ABG pO2 93 mmHg (83-108) 03/13/24 12:09 ABG O2 Saturation 98.0 % (94-97) H 03/13/24 12:09 PT/INR, D-dimer PT 12.1 sec (10.0-12.5) 03/13/24 11:43 INR 1.1 (<1.2) 03/13/24 11:43 Abnormal lab findings: Abnormal Labs 03/13/24 03/13/24 03/13/24 11:43 11:43 11:43 WBC 12.1 H Hgb 12.8 L Neutrophils # 9.8 H Lymphocytes # 0.9 L ABG O2 Saturation Chloride 110 H Carbon Dioxide 20 L BUN 87 H Creatinine 4.44 H Glucose 72 L POC Glucose (mg/dL) Plasma Lactic Acid Yuri 2.2 H* Troponin I Urine Protein Urine Blood Ur Leukocyte Esterase Urine RBC Urine WBC Urine WBC Clumps Urine Bacteria Urine Mucus 03/13/24 03/13/24 03/13/24 11:43 12:09 15:39 WBC Hgb Neutrophils # Lymphocytes # ABG O2 Saturation 98.0 H Chloride Carbon Dioxide BUN Creatinine Glucose POC Glucose (mg/dL) Plasma Lactic Acid Yuri Troponin I 0.052 H* 0.050 H* Urine Protein Urine Blood Ur Leukocyte Esterase Urine RBC Urine WBC Urine WBC Clumps Urine Bacteria Urine Mucus 03/13/24 03/13/24 03/13/24 16:56 18:17 20:47 WBC Hgb Neutrophils # Lymphocytes # ABG O2 Saturation Chloride Carbon Dioxide BUN Creatinine Glucose POC Glucose (mg/dL) 211 H 343 H Plasma Lactic Acid Yuri Troponin I Urine Protein 1+ H Urine Blood Moderate H Ur Leukocyte Esterase Large H Urine RBC 12 H Urine WBC >182 H Urine WBC Clumps Many H Urine Bacteria Many H Urine Mucus Rare H 03/13/24 21:25 WBC Hgb Neutrophils # Lymphocytes # ABG O2 Saturation Chloride Carbon Dioxide BUN Creatinine Glucose POC Glucose (mg/dL) Plasma Lactic Acid Yuri Troponin I 0.047 H* Urine Protein Urine Blood Ur Leukocyte Esterase Urine RBC Urine WBC Urine WBC Clumps Urine Bacteria Urine Mucus - Diagnostic Findings Chest x-ray: image reviewed Assessment and Plan Assessment: Acute hypoxemic respiratory failure, currently on 2 L/min nasal cannula, likely secondary to acute COPD exacerbation and possible CHF exacerbation. Chest x-ray on arrival showed low lung volumes and general hazy appearance, atelectasis versus pulmonary edema. NT proBNP was elevated at 4860. Negative for influenza, RSV, COVID. Acute on chronic kidney disease, possibly postobstructive secondary to retention, patient has indwelling urinary catheter placed Possible urinary tract infection Elevated troponin, possibly supply/demand related Chronic kidney disease stage IIIb History of BPH with previous TURP History of hyperlipidemia History of hypertension History of diabetes mellitus History of coronary artery disease with previous PCI/stent Moderate chronic obstructive pulmonary disease Obstructive sleep apnea Obesity, with a BMI of 38.7 kg/m Plan: Patient's medications, labs, chest x-ray reviewed Continue supplemental oxygen to maintain oxygen saturation 92% or greater Patient has already been started on a combination of DuoNebs [id number], budesonide inhalation, formoterol inhalation, and IV Solu-Medrol No signs of CO2 narcosis. ABG noted. Empirically cover the patient on azithromycin Check procalcitonin level Pancultures are pending Received a dose of Lasix in the emergency department. Echocardiogram pending. Cardiology is consulted. Patient now has an indwelling urinary catheter. Urology consult is in. We will also continue to follow. I have personally seen and examined the patient, performed the documentation and the assessment and plan as written. Number of minutes spent on the visit:20 Time with Patient: Greater than 30
[2024-03-14] MEDS: AZITHROMYCIN 500 MG TAB PO STA (06:20)
--- NOTE | 2024-03-14 07:46 | XR ---
EXAMINATION TYPE: XR chest 1V portable DATE OF EXAM: 03/14/2024 HISTORY: Shortness of breath. COMPARISON: 03/13/2024 TECHNIQUE: Single view of the chest is submitted. FINDINGS: Demonstrated are scattered senescent parenchymal change. There is no evidence for focal infiltrate. The heart is stable. Hilar and mediastinal structures are within normal limits. Degenerative changes are seen of the dorsal spine. IMPRESSION: 1. Chronic changes without evidence for acute pulmonary disease.
[2024-03-14 08:04] LABS: Basophils % (A) 0 %; Eosinophils % (A) 0 %; HCT 37.2 % (39.0-53.0); HGB 11.7 gm/dL (13.0-17.5); Lymphocytes # (A) 0.4 k/uL (1.0-4.8); Lymphocytes % (A) 3 %; MCH 29.6 pg (25.0-35.0); MCHC 31.5 g/dL (31.0-37.0); Mean Platelet Volume 7.6; Monocytes # (A) 0.5 k/uL (0-1.0); Monocytes % (A) 4 %; Neutrophils # (A) 11.8 k/uL (1.3-7.7); Neutrophils % (A) 92 %; Platelet Count 242 k/uL (150-450); RBC 3.96 m/uL (4.30-5.90); RDW 15.3 % (11.5-15.5); WBC 12.8 k/uL (3.8-10.6)
[2024-03-14 08:41] LABS: ALT 21 U/L (4-49); AST 24 U/L (17-59); African American GFR (CKD) 13 (>60 ml/min/1.73 sqM); Albumin 3.4 g/dL (3.5-5.0); Alkaline Phosphatase 67 U/L (38-126); Anion Gap 10 mmol/L; Blood Urea Nitrogen 89 mg/dL (9-20); Calcium 8.3 mg/dL (8.4-10.2); Carbon Dioxide 17 mmol/L (22-30); Chloride 107 mmol/L (98-107); Glucose 272 mg/dL (74-99); Non-African American GFR(CKD) 11 (>60 ml/min/1.73 sqM); Potassium 4.3 mmol/L (3.5-5.1); Sodium 134 mmol/L (137-145); Total Bilirubin 0.6 mg/dL (0.2-1.3); Total Protein 6.1 g/dL (6.3-8.2)
[2024-03-14 11:15] LABS: Glucose,Whole Blood 363 mg/dL (70-110)
--- NOTE | 2024-03-14 11:32 | P.CRDCN ---
History of Present Illness History of present illness: HISTORY OF PRESENTING ILLNESS This is a pleasant 71-year-old with past medical history significant for COPD, CAD with prior stenting, diabetes mellitus type 2, hypertension, hyperlipidemia, chronic kidney disease. He follows in the office with Dr Ramos. He states that he has been having increased shortness of breath over last week and a half. He also has been having some upper abdominal achiness. Denies any specific chest pain or pressure. He has not really had an appetite over last few weeks. He does have chronic kidney disease with creatinine more than the 2.8 range however creatinine increased up before this admission. Denies any recent Motrin. No significant lightheadedness or dizziness. No recent changes to his medications. Chest x-ray performed which shows pulmonary vascular congestion. Patient also has diffuse wheezes on exam. EKG showing sinus rhythm with frequent PACs. Troponin 0.05, 0.05. Lactic acid 2.2. ProBNP 4860 REVIEW OF SYSTEMS At the time of my exam: CONSTITUTIONAL: Denies fever or chills. CARDIOVASCULAR: Denies chest pain, +shortness of breath, +orthopnea, no PND or palpitations. RESPIRATORY: Denies cough. GASTROINTESTINAL: +upper abdominal pain, no constipation, nausea or vomiting. MUSCULOSKELETAL: Denies myalgias. NEUROLOGIC: Denies numbness, tingling or weakness. ENDOCRINE: Denies fatigue, weight change, polydipsia or polyurina. GENITOURINARY: Denies burning, hematuria or urgency with micturation. HEMATOLOGIC: Denies history of anemia or bleeding. PHYSICAL EXAMINATION Vital signs reviewed. CONSTITUTIONAL: No apparent distress. HEENT: Head is normocephalic. Pupils are equal, round. Sclerae anicteric. Mucous membranes of the mouth are moist. No JVD. No carotid bruit. CHEST EXAMINATION: Lungs are clear to auscultation. No chest wall tenderness is noted on palpation or with deep breathing. HEART EXAMINATION: Regular rate and rhythm. S1, S2 heard. No murmurs, gallops or rub. ABDOMEN: Soft, nontender. Positive bowel sounds. EXTREMITIES: 2+ peripheral pulses, no lower extremity edema and no calf tenderness. NEUROLOGIC EXAMINATION: Patient is awake, alert and oriented x3. ASSESSMENT Acute on chronic respiratory failure related to component of possible COPD exacerbation with audible wheezing plus component of heart failure/kidney failure Acute on chronic diastolic heart failure Acute on chronic kidney disease Elevated troponins, related to chronic kidney disease Atypical abdominal pain CAD with prior history of stenting Hypertension Hyperlipidemia Diabetes mellitus type 2 History of COPD Decreased appetite may be related to progressive CKD PLAN Patient's x-ray consistent with vascular congestion and monitor response of diuretics. Acute kidney injury and a Reynolds was placed. Avoid nephrotoxic agents. Further recommendations regarding diuretics, possible dialysis per nephrology. He is wheezing and some of this may be related to COPD exacerbation as well. Check 2-D echo and evaluate left ventricular function. No signs or symptoms to suggest acute coronary syndrome. Further recommendations to follow. Past Medical History Past Medical History: Coronary Artery Disease (CAD), COPD, Diabetes Mellitus, Hyperlipidemia, Hypertension, Myocardial Infarction ([place]), Pneumonia, Sleep Apnea/CPAP/BIPAP Additional Past Medical History / Comment(s): skin cancer from his scalp that has been removed Last Myocardial Infarction Date:: 2011 History of Any Multi-Drug Resistant Organisms: None Reported Past Surgical History: Cholecystectomy, Heart Catheterization With Stent, Hernia Repair Additional Past Surgical History / Comment(s): UMBILICAL HERNIA REPAIR.VASECTOMY, colonoscopy, skin ca on scalp removed. Past Anesthesia/Blood Transfusion Reactions: No Reported Reaction Date of Last Stent Placement:: 2011 Past Psychological History: No Psychological Hx Reported Additional Psychological History / Comment(s): lives with his . has nebulizer, glucometer and cpap Smoking Status: Never smoker Past Alcohol Use History: None Reported Additional Past Alcohol Use History / Comment(s): Patient is a lifelong nonsmoker. He worked [email or web address]. Past Drug Use History: None Reported - Past Family History Father Family Medical History: CVA/TIA, Hypertension, Myocardial Infarction ([place]) Additional Family Medical History / Comment(s): AT AGE 73-[place] Mother Family Medical History: Renal Disease Additional Family Medical History / Comment(s): AT AGE 56 COMPLICATIONS FROM DIABETES Medications and Allergies Home Medications Medication Instructions Recorded Confirmed Type Furosemide [Lasix] 40 mg PO BID-W/MEALS 05/03/18 03/13/24 History Aspirin EC [Ecotrin] 325 mg PO DAILY 03/13/24 03/13/24 History Dapagliflozin Propanediol [Farxiga] 10 mg PO DAILY 03/13/24 03/13/24 History Ferrous Sulfate [Feosol] 325 mg PO DAILY 03/13/24 03/13/24 History Insulin Glargine,Hum.rec.anlog 60 units SQ DAILY 03/13/24 03/13/24 History [Lantus Solostar Pen] Tamsulosin HCl [Flomax] 0.4 mg PO BID-W/MEALS 03/13/24 03/13/24 History Verapamil Sr [Isoptin Sr] 120 mg PO BID-W/MEALS 03/13/24 03/13/24 History calcitrioL 0.25 mcg PO DAILY 03/13/24 03/13/24 History glipiZIDE [Glucotrol] 5 mg PO AC-BID 03/13/24 03/13/24 History lisinopriL [Zestril] 2.5 mg PO DAILY 03/13/24 03/13/24 History Allergies Allergy/AdvReac Type Severity Reaction Status Date / Time No Known Allergies Allergy Verified 03/13/24 13:26 Physical Exam Vitals: Vital Signs Temp Pulse Pulse Resp BP BP Pulse Ox 03/14/24 09:42 76 03/14/24 09:39 98.2 F 77 16 125/77 98 03/14/24 09:25 76 03/14/24 09:24 76 03/14/24 09:07 80 03/14/24 04:00 97.6 F 78 14 107/70 98 03/14/24 00:07 97.7 F 73 18 114/62 98 03/13/24 22:25 98.3 F 76 20 127/75 98 03/13/24 21:58 64 03/13/24 21:51 64 18 116/71 95 03/13/24 21:46 65 03/13/24 20:32 64 18 112/63 99 03/13/24 18:15 68 18 109/74 95 03/13/24 17:10 71 20 109/73 96 03/13/24 16:36 75 18 99/64 94 L 03/13/24 14:20 86 03/13/24 14:17 77 20 107/50 98 03/13/24 14:08 80 03/13/24 13:15 92 22 108/71 94 L 03/13/24 12:19 85 03/13/24 12:05 86 03/13/24 11:54 20 Intake and Output 03/13/24 03/14/24 03/14/24 22:59 06:59 14:59 Intake Total 368 Output Total 400 Balance -400 368 Intake: IV 10 Invasive Line 1 10 Oral 358 Output: Urine 400 Other: Voiding Method Indwelling Catheter Indwelling Catheter # Bowel Movements 1 1 Weight 136.078 kg 122.3 kg Results 03/14/24 07:52 03/14/24 07:52 Cardiac Enzymes 03/13/24 03/13/24 03/13/24 Range/Units 11:43 11:43 15:39 AST 26 (17-59) U/L Troponin I 0.052 H* 0.050 H* (0.000-0.034) ng/mL 03/13/24 03/14/24 Range/Units 21:25 07:52 AST 24 (17-59) U/L Troponin I 0.047 H* (0.000-0.034) ng/mL Coagulation 03/13/24 Range/Units 11:43 PT 12.1 (10.0-12.5) sec APTT 27.8 (22.0-30.0) sec CBC 03/13/24 03/14/24 Range/Units 11:43 07:52 WBC 12.1 H 12.8 H (3.8-10.6) k/uL RBC 4.33 3.96 L (4.30-5.90) m/uL Hgb 12.8 L 11.7 L (13.0-17.5) gm/dL Hct 40.5 37.2 L (39.0-53.0) % Plt Count 274 242 (150-450) k/uL Comprehensive Metabolic Panel 03/13/24 03/14/24 Range/Units 11:43 07:52 Sodium 143 134 L (137-145) mmol/L Potassium 4.2 4.3 (3.5-5.1) mmol/L Chloride 110 H 107 (98-107) mmol/L Carbon Dioxide 20 L 17 L (22-30) mmol/L BUN 87 H 89 H (9-20) mg/dL Creatinine 4.44 H 4.68 H (0.66-1.25) mg/dL Glucose 72 L 272 H (74-99) mg/dL Calcium 8.4 8.3 L (8.4-10.2) mg/dL AST 26 24 (17-59) U/L ALT 21 21 (4-49) U/L Alkaline Phosphatase 63 67 (38-126) U/L Total Protein 6.3 6.1 L (6.3-8.2) g/dL Albumin 3.6 3.4 L (3.5-5.0) g/dL Current Medications Generic Name Dose Route Start Last Admin Trade Name Freq PRN Reason Stop Dose Admin Albuterol/Ipratropium 3 ml 03/13/24 13:51 03/13/24 14:08 Ipratropium-Albuterol 3 Ml Neb INHALATION 3 ml RT-Q2H PRN Administration Shortness Of Breath Or Wheezing Albuterol/Ipratropium 3 ml 03/13/24 16:00 03/14/24 09:07 Ipratropium-Albuterol 3 Ml Neb INHALATION 3 ml RT-QID TRENT Administration Azithromycin 500 mg 03/15/24 09:00 Azithromycin 500 Mg Tab PO 03/16/24 09:01 DAILY TRENT Protocol Budesonide 1 mg 03/13/24 17:00 03/14/24 09:07 Budesonide 1 Mg/2 Ml Nebu INHALATION 1 mg RT-BID TRENT Administration Calcitriol 0.25 mcg 03/14/24 09:00 03/14/24 09:40 Calcitriol 0.25 Mcg Cap PO 0.25 mcg DAILY TRENT Administration Dextrose/Water 25 ml 03/13/24 16:38 Dextrose 50% Syringe 50 Ml IVP PER PROTOCOL PRN Hypoglycemia Protocol Dextrose/Water 50 ml 03/13/24 16:38 Dextrose 50% Syringe 50 Ml IVP PER PROTOCOL PRN Hypoglycemia Protocol Formoterol Fumarate 20 mcg 03/13/24 17:00 03/14/24 09:07 Formoterol Fumarate 20 Mcg/2 Ml Nebu INHALATION 20 mcg RT-BID TRENT Administration Ceftriaxone Sodium 1 gm/ 50 mls @ 100 mls/hr 03/13/24 17:00 03/13/24 17:06 Sodium Chloride IVPB 100 mls/hr Q24H TRENT Administration Protocol Insulin Aspart 0 unit 03/13/24 17:30 03/14/24 06:21 Insulin Aspart (Novolog) 100 Unit/Ml Vial SQ 3 unit ACHS TRENT Administration Protocol Methylprednisolone Sodium Succinate 60 mg 03/13/24 18:00 03/14/24 06:19 Methylprednisolone Sod Succi 125 Mg/2 Ml Vial IV 60 mg Q6HR TRENT Administration Pantoprazole Sodium 40 mg 03/13/24 16:45 03/14/24 09:40 Pantoprazole 40 Mg/10 Ml Vial IVP 40 mg DAILY TRENT Administration Tamsulosin HCl 0.4 mg 03/13/24 17:30 03/14/24 06:20 Tamsulosin 0.4 Mg Cap.Er.24h PO 0.4 mg BID-W/MEALS TRENT Administration Intake and Output 03/13/24 03/14/24 03/14/24 22:59 06:59 14:59 Intake Total 368 Output Total 400 Balance -400 368 Intake: IV 10 Invasive Line 1 10 Oral 358 Output: Urine 400 Other: Voiding Method Indwelling Catheter Indwelling Catheter # Bowel Movements 1 1 Weight 136.078 kg 122.3 kg 03/14/24 07:52 03/14/24 07:52
--- NOTE | 2024-03-14 12:16 | CA ---
Transthoracic Echo Report Name: Salvador Amato Age: 78 Gender: M : 1945 Exam Date: 03/14/2024 10:21 Exam Location: [facility] Ht (in): 70 Wt (lb): 300 Ordering Physician: Salo Hannon MD Attending/Referring Phys: Environmental Health And Safety Intern Lissa Reis RDCS Procedure CPT: Indications: chf Cardiac Hx: Technical Quality: Poor, Technically difficult study Contrast 1: Definity Total Dose (mL): 2 Contrast 2: Total Dose (mL): MEASUREMENTS (Male / Female) Normal Values 2D ECHO LV Diastolic Diameter PLAX 6.2 cm 4.2 - 5.9 / 3.9 - 5.3 cm LV Systolic Diameter PLAX 5.4 cm IVS Diastolic Thickness 1.3 cm 0.6 - 1.0 / 0.6 - 0.9 cm LVPW Diastolic Thickness 1.4 cm 0.6 - 1.0 / 0.6 - 0.9 cm LV Relative Wall Thickness 0.4 RV Internal Dim ED PLAX 2.4 cm LA Systolic Diameter LX 4.4 cm 3.0 - 4.0 / 2.7 - 3.8 cm M-MODE Aortic Root Diameter MM 3.5 cm LA Systolic Diameter MM 4.4 cm LA Ao Ratio MM 1.2 AV Cusp Separation MM 1.6 cm DOPPLER AV Peak Velocity 151.0 cm/s AV Peak Gradient 9.1 mmHg Mitral E Point Velocity 83.2 cm/s Mitral A Point Velocity 53.4 cm/s Mitral E to A Ratio 1.6 MV Deceleration Time 333.9 ms MV E' Velocity 6.4 cm/s Mitral E to MV E' Ratio 13.0 TR Peak Velocity 242.5 cm/s TR Peak Gradient 23.5 mmHg FINDINGS Left Ventricle Left ventricular ejection fraction is estimated at 35-40 %. Mildly increased septal wall thickness. Mildly increased left ventricular diastolic diameter. Global left ventricular hypokinesis. Right Ventricle Normal right ventricular size and function. Right ventricular systolic pressure within normal limits. Right Atrium Mild right atrial dilatation. Left Atrium Mildly increased left atrial diameter. Mitral Valve Structurally normal mitral valve. Trace to mild mitral regurgitation. Aortic Valve Trileaflet aortic valve. Trace aortic regurgitation. No aortic stenosis. Tricuspid Valve Structurally normal tricuspid valve. Trace tricuspid regurgitation. Pulmonic Valve Structurally normal pulmonic valve. Trace pulmonic regurgitation. No pulmonic stenosis. Pericardium No pericardial or pleural effusion. Aorta Normal size aortic root and proximal ascending aorta. CONCLUSIONS LVEF 35-40% Mild concentric LVH No obvious regional wall motion abnormality Mild MR Mild biatrial dilatation No pericardial effusion Previewed by: Dr Ramses Chicas (Electronically Signed) Final Date: 14 March 2024 12:16
--- NOTE | 2024-03-14 12:28 | P.NPCON ---
History of Present Illness - Reason for Consult acute renal failure - History of Present Illness Patient is an 78-year-old male with history of CHF, COPD, chronic kidney disease and Stage IV with baseline creatinine about 2.4 to 2.6 mg/dL in 2022. Patient is admitted to the hospital with complaints of increased weakness and shortness of breath. He also noticed increased leg swelling. Serum creatinine was elevated at 4.4 on admission and is 4.6 today. It appears that there may have been some urine retention and patient currently has an indwelling Reynolds catheter. Blood pressure was low with systolic noted in the 90s. Maintained on ILANA inhibitors, currently on hold. Ejection fraction of 35 to 40% Patient is currently being treated for COPD exacerbation. He received 1 dose of IV Lasix and is currently not maintained on diuretics. Review of Systems As per HPI Past Medical History Past Medical History: Coronary Artery Disease (CAD), COPD, Diabetes Mellitus, Hyperlipidemia, Hypertension, Myocardial Infarction ([place]), Pneumonia, Sleep Apnea/CPAP/BIPAP Additional Past Medical History / Comment(s): skin cancer from his scalp that has been removed Last Myocardial Infarction Date:: 2011 History of Any Multi-Drug Resistant Organisms: None Reported Past Surgical History: Cholecystectomy, Heart Catheterization With Stent, Hernia Repair Additional Past Surgical History / Comment(s): UMBILICAL HERNIA RE PAIR.VASECTOMY, colonoscopy, skin ca on scalp removed. Past Anesthesia/Blood Transfusion Reactions: No Reported Reaction Date of Last Stent Placement:: 2011 Past Psychological History: No Psychological Hx Reported Additional Psychological History / Comment(s): lives with his . has nebulizer, glucometer and cpap Smoking Status: Never smoker Past Alcohol Use History: None Reported Additional Past Alcohol Use History / Comment(s): Patient is a lifelong nonsmoker. He worked [employer]. Past Drug Use History: None Reported - Past Family History Father Family Medical History: CVA/TIA, Hypertension, Myocardial Infarction ([place]) Additional Family Medical History / Comment(s): AT AGE 73-[place] Mother Family Medical History: Renal Disease Additional Family Medical History / Comment(s): AT AGE 56 COMPLICATIONS FROM DIABETES Medications and Allergies Home Medications Medication Instructions Recorded Confirmed Type Furosemide [Lasix] 40 mg PO BID-W/MEALS 05/03/18 03/13/24 History Aspirin EC [Ecotrin] 325 mg PO DAILY 03/13/24 03/13/24 History Dapagliflozin Propanediol [Farxiga] 10 mg PO DAILY 03/13/24 03/13/24 History Ferrous Sulfate [Feosol] 325 mg PO DAILY 03/13/24 03/13/24 History Insulin Glargine,Hum.rec.anlog 60 units SQ DAILY 03/13/24 03/13/24 History [Lantus Solostar Pen] Tamsulosin HCl [Flomax] 0.4 mg PO BID-W/MEALS 03/13/24 03/13/24 History Verapamil Sr [Isoptin Sr] 120 mg PO BID-W/MEALS 03/13/24 03/13/24 History calcitrioL 0.25 mcg PO DAILY 03/13/24 03/13/24 History glipiZIDE [Glucotrol] 5 mg PO AC-BID 03/13/24 03/13/24 History lisinopriL [Zestril] 2.5 mg PO DAILY 03/13/24 03/13/24 History Allergies Allergy/AdvReac Type Severity Reaction Status Date / Time No Known Allergies Allergy Verified 03/13/24 13:26 Physical Exam Vitals: Vital Signs Temp Pulse Pulse Resp BP BP Pulse Ox 03/14/24 11:56 85 16 134/72 97 03/14/24 09:42 76 03/14/24 09:39 98.2 F 77 16 125/77 98 03/14/24 09:25 76 03/14/24 09:24 76 03/14/24 09:07 80 03/14/24 04:00 97.6 F 78 14 107/70 98 03/14/24 00:07 97.7 F 73 18 114/62 98 03/13/24 22:25 98.3 F 76 20 127/75 98 03/13/24 21:58 64 03/13/24 21:51 64 18 116/71 95 03/13/24 21:46 65 03/13/24 20:32 64 18 112/63 99 03/13/24 18:15 68 18 109/74 95 03/13/24 17:10 71 20 109/73 96 03/13/24 16:36 75 18 99/64 94 L 03/13/24 14:20 86 03/13/24 14:17 77 20 107/50 98 03/13/24 14:08 80 03/13/24 13:15 92 22 108/71 94 L 03/13/24 12:19 85 Intake and Output 03/13/24 03/14/24 03/14/24 22:59 06:59 14:59 Intake Total 368 Output Total 400 Balance -400 368 Intake: IV 10 Invasive Line 1 10 Oral 358 Output: Urine 400 Other: Voiding Method Indwelling Catheter Indwelling Catheter # Bowel Movements 1 1 Weight 136.078 kg 122.3 kg Patient is awake, comfortable, no acute distress. Examination of the heart S1 and S2 Examination of the lungs decreased breath sounds at the bases with basal crackles Abdomen is soft obese nontender Examination of lower extremity shows edema 1+ bilaterally with chronic skin changes. SQL ENGINEER exam grossly intact Results - Lab Results Most recent lab results ABG pH 7.36 (7.35-7.45) 03/13/24 12:09 ABG pCO2 37 mmHg (35-45) 03/13/24 12:09 ABG pO2 93 mmHg (83-108) 03/13/24 12:09 ABG HCO3 21 mmol/L (21-25) 03/13/24 12:09 ABG O2 Saturation 98.0 % (94-97) H 03/13/24 12:09 Calcium 8.3 mg/dL (8.4-10.2) L 03/14/24 07:52 Magnesium 2.0 mg/dL (1.6-2.3) 03/13/24 11:43 03/14/24 07:52 03/14/24 07:52 Assessment and Plan Assessment: 1. Acute kidney injury mostly cardiorenal with component of urine retention, currently with indwelling Reynolds catheter. Serum creatinine has not improved and if there is no improvement in renal function in the next 24 to 48 hours patient will need to start renal replacement therapy. Check ultrasound of the kidneys. UA is suggestive of UTI with 1+ protein moderate blood and WBCs more than 182 2. Pyuria rule out UTI 3. COPD exacerbation, acute maintained on steroids and antibiotics 3. Volume overload 4. Chronic systolic CHF 5. CKD mineral bone disorder maintained on calcitriol, calcium 8.3 6. Chronic kidney disease and Stage IV secondary to diabetic kidney disease and nephrosclerosis with baseline creatinine around 2.5-2.8 mg/dL Plan: Continue with Reynolds catheter. Repeat labs in a.m. Patient will need to start renal replacement therapy if there is no improvement in renal function over the next 24 to 48 hours. Avoid nephrotoxic agents Continue with antibiotics. Thank you for the consultation. We will continue to follow the patient with you during his hospitalization.
[2024-03-14 13:50] VITALS: BMI 38.7
[2024-03-14 16:10] LABS: Glucose,Whole Blood 375 mg/dL (70-110)
[2024-03-14 20:19] LABS: Glucose,Whole Blood 392 mg/dL (70-110)
--- NOTE | 2024-03-14 23:58 | PN ---
PROGRESS NOTE DATE OF SERVICE: 03/14/2024 SUBJECTIVE: This is an 78-year-old gentleman who was admitted with shortness of breath, had possibly COPD and CHF acute exacerbation. The patient also had renal failure. Creatinine is up to 4.68. The patient is making some urine at this time today. Today's chest x-ray which is evaluated personally showed some baseline flattening and chronic changes. Multiple consultants are following the patient closely. Possible UTI was also suspected. A new 2D echo showed ejection fraction of around 35% to 40%. PAST MEDICAL HISTORY: Reviewed. REVIEW OF SYSTEMS: A 14-point review is negative except as mentioned earlier. CURRENT MEDICATIONS: Reviewed include Zithromax. PHYSICAL EXAMINATION: VITAL SIGNS: Blood pressure 134/70, respirations 16. HEENT: Conjunctivae normal. NECK: No jugular venous distention. CARDIOVASCULAR: S1, S2. RESPIRATIONS: Few scattered rhonchi and crackles, expiratory wheezing. ABDOMEN: Soft, obese. LEGS: Minimal edema. LABORATORY DATA: Reviewed. Glucose 363. Troponin 0.047. ASSESSMENT: 1. Shortness of breath, possibly combination of COPD acute exacerbation as well as CHF acute exacerbation with acute on chronic systolic dysfunction, ejection fraction 35% to 40%. 2. Acute on chronic renal failure. 3. Chronic kidney disease stage 3 baseline. 4. Elevated plasma and lactic acid. 5. Troponin 0.05 indeterminate. 6. History of CAD. 7. Diabetes mellitus type 2. 8. Hypertension. 9. Hyperlipidemia. 10.History of myocardial infarction. 11.History of CAD stent. 12.History of sleep apnea. 13.Possible acute UTI. RECOMMENDATIONS AND DISCUSSION: This is an 78-year-old gentleman, at this time I recommended to continue the current medications. Continue symptomatic treatment. Continue with empiric antibiotics. Follow the cultures which are negative so far. Repeat labs. Closely follow with multiple consultants. Guarded prognosis. Further recommendations to follow. See orders for details. The patient is on IV steroids as well. MMODL / IJN: [id number] /
[2024-03-15 05:52] LABS: Glucose,Whole Blood 354 mg/dL (70-110)
[2024-03-15] MEDS: INSULIN ASPART (NovoLOG) 100 UNIT/ML VIAL SQ SCH (06:24)
[2024-03-15] MEDS: PANTOPRAZOLE 40 MG TABLET PO SCH (06:24)
[2024-03-15] MEDS: AZITHROMYCIN 500 MG TAB PO SCH (07:40)
--- NOTE | 2024-03-15 08:20 | P.GSCN ---
History of Present Illness Consult date: 03/15/24 Reason for Consult: Urinary retention Requesting physician: Jevon E Sheet History of present illness: The patient is an 78-year-old white male with multiple medical problems, including COPD, CHF, and stage IV chronic kidney disease. He was admitted with complaints of dyspnea, increased lower extremity edema, and weakness. He previously underwent transurethral vaporization of the prostate by Dr. Fernandez in November 2020. He continues to take tamsulosin 0.8 mg daily. However, he has recently experienced difficulty voiding and states that he should have contacted Dr. Fernandez. He has been found to be in urinary retention, and a Reynolds catheter was placed. Urinalysis is consistent with a UTI, and a urine culture shows gram-negative bacilli. Renal ultrasound in June 2023 was unremarkable. Review of Systems - Respiratory Reports dyspnea - Genitourinary Reports urinary frequency, Reports urinary hesitancy Past Medical History Past Medical History: Coronary Artery Disease (CAD), COPD, Diabetes Mellitus, Hyperlipidemia, Hypertension, Myocardial Infarction ([place]), Pneumonia, Sleep Apnea/CPAP/BIPAP Additional Past Medical History / Comment(s): skin cancer from his scalp that has been removed Last Myocardial Infarction Date:: 2011 History of Any Multi-Drug Resistant Organisms: None Reported Past Surgical History: Cholecystectomy, Heart Catheterization With Stent, Hernia Repair Additional Past Surgical History / Comment(s): UMBILICAL HERNIA REPAIR.VASECTOMY, colonoscopy, skin ca on scalp removed. Past Anesthesia/Blood Transfusion Reactions: No Reported Reaction Date of Last Stent Placement:: 2011 Past Psychological History: No Psychological Hx Reported Additional Psychological History / Comment(s): lives with his . has nebulizer, glucometer and cpap Smoking Status: Never smoker Past Alcohol Use History: None Reported Additional Past Alcohol Use History / Comment(s): Patient is a lifelong nonsmoker. He worked [employer]. Past Drug Use History: None Reported - Past Family History Father Family Medical History: CVA/TIA, Hypertension, Myocardial Infarction ([place]) Additional Family Medical History / Comment(s): AT AGE 73-[place] Mother Family Medical History: Renal Disease Additional Family Medical History / Comment(s): AT AGE 56 COMPLICATIONS FROM DIABETES Medications and Allergies Home Medications Medication Instructions Recorded Confirmed Type Furosemide [Lasix] 40 mg PO BID-W/MEALS 05/03/18 03/13/24 History Aspirin EC [Ecotrin] 325 mg PO DAILY 03/13/24 03/13/24 History Dapagliflozin Propanediol [Farxiga] 10 mg PO DAILY 03/13/24 03/13/24 History Ferrous Sulfate [Feosol] 325 mg PO DAILY 03/13/24 03/13/24 History Insulin Glargine,Hum.rec.anlog 60 units SQ DAILY 03/13/24 03/13/24 History [Lantus Solostar Pen] Tamsulosin HCl [Flomax] 0.4 mg PO BID-W/MEALS 03/13/24 03/13/24 History Verapamil Sr [Isoptin Sr] 120 mg PO BID-W/MEALS 03/13/24 03/13/24 History calcitrioL 0.25 mcg PO DAILY 03/13/24 03/13/24 History glipiZIDE [Glucotrol] 5 mg PO AC-BID 03/13/24 03/13/24 History lisinopriL [Zestril] 2.5 mg PO DAILY 03/13/24 03/13/24 History Allergies Allergy/AdvReac Type Severity Reaction Status Date / Time No Known Allergies Allergy Verified 03/13/24 13:26 Surgical - Exam Vital Signs Temp Pulse Resp BP Pulse Ox 98.3 F 54 L 18 106/67 95 03/13/24 11:23 03/13/24 11:23 03/13/24 11:23 03/13/24 11:23 03/13/24 11:23 - General well developed, well nourished, no distress - Abdomen Abdomen: soft, non tender, no guarding, no rigid, no rebound - Genitourinary normal penis with no external lesions, testicles non-tender - Psychiatric oriented to time, oriented to person, oriented to place, speech is normal, memory intact Results - Labs 03/14/24 07:52 03/14/24 07:52 Abnormal Lab Results - Last 24 Hours (Table) 03/13/24 03/13/24 03/13/24 Range/Units 18:17 20:47 21:25 WBC (3.8-10.6) k/uL RBC (4.30-5.90) m/uL Hgb (13.0-17.5) gm/dL Hct (39.0-53.0) % Neutrophils # (1.3-7.7) k/uL Lymphocytes # (1.0-4.8) k/uL Sodium (137-145) mmol/L Carbon Dioxide (22-30) mmol/L BUN (9-20) mg/dL Creatinine (0.66-1.25) mg/dL Glucose (74-99) mg/dL POC Glucose (mg/dL) 343 H (70-110) mg/dL Hemoglobin A1c (<=6.0) % Calcium (8.4-10.2) mg/dL Troponin I 0.047 H* (0.000-0.034) ng/mL Total Protein (6.3-8.2) g/dL Albumin (3.5-5.0) g/dL Procalcitonin (0.02-0.09) ng/mL Urine Protein 1+ H (Negative) Urine Blood Moderate H (Negative) Ur Leukocyte Esterase Large H (Negative) Urine RBC 12 H (0-5) /hpf Urine WBC >182 H (0-5) /hpf Urine WBC Clumps Many H (None) /hpf Urine Bacteria Many H (None) /hpf Urine Mucus Rare H (None) /hpf 03/14/24 03/14/24 03/14/24 Range/Units 05:47 07:52 07:52 WBC 12.8 H (3.8-10.6) k/uL RBC 3.96 L (4.30-5.90) m/uL Hgb 11.7 L (13.0-17.5) gm/dL Hct 37.2 L (39.0-53.0) % Neutrophils # 11.8 H (1.3-7.7) k/uL Lymphocytes # 0.4 L (1.0-4.8) k/uL Sodium (137-145) mmol/L Carbon Dioxide (22-30) mmol/L BUN (9-20) mg/dL Creatinine (0.66-1.25) mg/dL Glucose (74-99) mg/dL POC Glucose (mg/dL) 280 H (70-110) mg/dL Hemoglobin A1c 7.2 H (<=6.0) % Calcium (8.4-10.2) mg/dL Troponin I (0.000-0.034) ng/mL Total Protein (6.3-8.2) g/dL Albumin (3.5-5.0) g/dL Procalcitonin (0.02-0.09) ng/mL Urine Protein (Negative) Urine Blood (Negative) Ur Leukocyte Esterase (Negative) Urine RBC (0-5) /hpf Urine WBC (0-5) /hpf Urine WBC Clumps (None) /hpf Urine Bacteria (None) /hpf Urine Mucus (None) /hpf 03/14/24 03/14/24 03/14/24 Range/Units 07:52 07:52 11:13 WBC (3.8-10.6) k/uL RBC (4.30-5.90) m/uL Hgb (13.0-17.5) gm/dL Hct (39.0-53.0) % Neutrophils # (1.3-7.7) k/uL Lymphocytes # (1.0-4.8) k/uL Sodium 134 L (137-145) mmol/L Carbon Dioxide 17 L (22-30) mmol/L BUN 89 H (9-20) mg/dL Creatinine 4.68 H (0.66-1.25) mg/dL Glucose 272 H (74-99) mg/dL POC Glucose (mg/dL) 363 H (70-110) mg/dL Hemoglobin A1c (<=6.0) % Calcium 8.3 L (8.4-10.2) mg/dL Troponin I (0.000-0.034) ng/mL Total Protein 6.1 L (6.3-8.2) g/dL Albumin 3.4 L (3.5-5.0) g/dL Procalcitonin 0.26 H (0.02-0.09) ng/mL Urine Protein (Negative) Urine Blood (Negative) Ur Leukocyte Esterase (Negative) Urine RBC (0-5) /hpf Urine WBC (0-5) /hpf Urine WBC Clumps (None) /hpf Urine Bacteria (None) /hpf Urine Mucus (None) /hpf 03/14/24 Range/Units 16:09 WBC (3.8-10.6) k/uL RBC (4.30-5.90) m/uL Hgb (13.0-17.5) gm/dL Hct (39.0-53.0) % Neutrophils # (1.3-7.7) k/uL Lymphocytes # (1.0-4.8) k/uL Sodium (137-145) mmol/L Carbon Dioxide (22-30) mmol/L BUN (9-20) mg/dL Creatinine (0.66-1.25) mg/dL Glucose (74-99) mg/dL POC Glucose (mg/dL) 375 H (70-110) mg/dL Hemoglobin A1c (<=6.0) % Calcium (8.4-10.2) mg/dL Troponin I (0.000-0.034) ng/mL Total Protein (6.3-8.2) g/dL Albumin (3.5-5.0) g/dL Procalcitonin (0.02-0.09) ng/mL Urine Protein (Negative) Urine Blood (Negative) Ur Leukocyte Esterase (Negative) Urine RBC (0-5) /hpf Urine WBC (0-5) /hpf Urine WBC Clumps (None) /hpf Urine Bacteria (None) /hpf Urine Mucus (None) /hpf Microbiology - Last 24 Hours (Table) 03/13/24 18:17 Urine Culture - Preliminary Urine,Catheterized Gram Neg Bacilli Diabetes panel 03/14/24 03/14/24 Range/Units 07:52 07:52 Sodium 134 L (137-145) mmol/L Potassium 4.3 (3.5-5.1) mmol/L Chloride 107 (98-107) mmol/L Carbon Dioxide 17 L (22-30) mmol/L BUN 89 H (9-20) mg/dL Creatinine 4.68 H (0.66-1.25) mg/dL Glucose 272 H (74-99) mg/dL Hemoglobin A1c 7.2 H (<=6.0) % Calcium 8.3 L (8.4-10.2) mg/dL AST 24 (17-59) U/L ALT 21 (4-49) U/L Alkaline Phosphatase 67 (38-126) U/L Total Protein 6.1 L (6.3-8.2) g/dL Albumin 3.4 L (3.5-5.0) g/dL Calcium panel 03/14/24 Range/Units 07:52 Calcium 8.3 L (8.4-10.2) mg/dL Albumin 3.4 L (3.5-5.0) g/dL Pituitary panel 03/14/24 Range/Units 07:52 Sodium 134 L (137-145) mmol/L Potassium 4.3 (3.5-5.1) mmol/L Chloride 107 (98-107) mmol/L Carbon Dioxide 17 L (22-30) mmol/L BUN 89 H (9-20) mg/dL Creatinine 4.68 H (0.66-1.25) mg/dL Glucose 272 H (74-99) mg/dL Calcium 8.3 L (8.4-10.2) mg/dL Adrenal panel 03/14/24 Range/Units 07:52 Sodium 134 L (137-145) mmol/L Potassium 4.3 (3.5-5.1) mmol/L Chloride 107 (98-107) mmol/L Carbon Dioxide 17 L (22-30) mmol/L BUN 89 H (9-20) mg/dL Creatinine 4.68 H (0.66-1.25) mg/dL Glucose 272 H (74-99) mg/dL Calcium 8.3 L (8.4-10.2) mg/dL Total Bilirubin 0.6 (0.2-1.3) mg/dL AST 24 (17-59) U/L ALT 21 (4-49) U/L Alkaline Phosphatase 67 (38-126) U/L Total Protein 6.1 L (6.3-8.2) g/dL Albumin 3.4 L (3.5-5.0) g/dL Assessment and Plan (1) Retention of urine, unspecified Current Visit: Yes Status: Acute Code(s): R33.9 - RETENTION OF URINE, UNSPECIFIED SNOMED Code(s): 686213393 (2) UTI (urinary tract infection) Current Visit: Yes Status: Acute Code(s): N39.0 - URINARY TRACT INFECTION, SITE NOT SPECIFIED SNOMED Code(s): 29541448 Plan: Continue tamsulosin. Continue Rocephin, pending the urine culture result. The patient will be given a voiding trial prior to discharge. If the urinary retention persists, he will be discharged home with a Reynolds catheter and follow- up with Dr. Fernandez as an outpatient. Time with Patient: Greater than 30
[2024-03-15 09:08] LABS: Basophils % (A) 0 %; Eosinophils % (A) 0 %; HCT 36.3 % (39.0-53.0); HGB 11.7 gm/dL (13.0-17.5); Hypochromasia Slight; Lymphocytes # (A) 0.4 k/uL (1.0-4.8); Lymphocytes % (A) 2 %; MCH 30.8 pg (25.0-35.0); MCHC 32.1 g/dL (31.0-37.0); MCV 95.7 fL (80.0-100.0); Mean Platelet Volume 7.8; Monocytes # (A) 0.7 k/uL (0-1.0); Monocytes % (A) 4 %; Neutrophils # (A) 15.6 k/uL (1.3-7.7); Neutrophils % (A) 93 %; Platelet Count 212 k/uL (150-450); RBC 3.79 m/uL (4.30-5.90); RDW 15.2 % (11.5-15.5); WBC 16.7 k/uL (3.8-10.6)
[2024-03-15 09:20] LABS: ALT 23 U/L (4-49); AST 25 U/L (17-59); African American GFR (CKD) 12 (>60 ml/min/1.73 sqM); Albumin 3.5 g/dL (3.5-5.0); Alkaline Phosphatase 63 U/L (38-126); Anion Gap 10 mmol/L; Blood Urea Nitrogen 94 mg/dL (9-20); Calcium 8.5 mg/dL (8.4-10.2); Carbon Dioxide 20 mmol/L (22-30); Chloride 104 mmol/L (98-107); Glucose 300 mg/dL (74-99); Non-African American GFR(CKD) 10 (>60 ml/min/1.73 sqM); Sodium 134 mmol/L (137-145); Total Bilirubin 0.4 mg/dL (0.2-1.3)
[2024-03-15 11:42] LABS: Glucose,Whole Blood 208 mg/dL (70-110)
[2024-03-15] MEDS: ADENOSINE 3 MG/ML 2 ML VIAL IVP STA ×2 (13:02→13:06)
[2024-03-15] MEDS: DILTIAZEM DRIP BOLUS FROM BAG 1 MG SOLN IV ONE (13:39)
[2024-03-15] MEDS: DILTIAZEM 125 MG in SODIUM CHLORIDE 0.9% 100 ML IV SCH (13:40)
--- NOTE | 2024-03-15 15:10 | P.PN ---
Subjective Progress Note Date: 03/15/24 Patient is an 78-year-old white male with past medical history significant for COPD, obstructive sleep apnea, coronary artery disease, hypertension, hyperlipidemia, chronic kidney disease, BPH and previous TURP. His primary care provider is Dr. Isbell. Did follow with Dr. Delacruz in the pulmonary office in the past, but has not been back in some time. He is known to have moderate COPD. Patient presented to emergency room yesterday complaining of about 4 weeks of worsening shortness of breath. Accompanied by chest tightness, wheezing, cough with green phlegm. Chest x-ray on arrival showed low lung volumes and general hazy appearance, atelectasis versus pulmonary edema. Also, noted to be more confused at home. ABG was drawn in the emergency department, with a PaO2 of 93, pCO2 of 37, pH of 7.36. He is also has had issues with frequent urination and incomplete voiding. He has history of urinary retention and underwent previous TURP in the past. Denies any burning or dysuria. Denies suprapubic pain. Denies fevers. Urinalysis positive for leukocyte esterase and bacteria. CBC: WBC count 12.1, hemoglobin 12.8, hematocrit 40.5, platelets 274. CMP: Sodium 143, potassium 4.2, chloride 110, serum bicarb 20, BUN 87, creatinine 4.44, glucose 72. Does have an indwelling urinary catheter. lactic 2. LFTs not elevated. Troponin 0.047. NT proBNP 4860. Negative for influenza, RSV, COVID. He is currently sitting up at the edge of the bed, reportedly just got up to use the bathroom. Seems to be oriented. He is on 2 L/min nasal cannula. SpO2 is 98%. He has audible wheezing. Vital signs are stable. The patient is seen today March 15, 2024 in follow-up on the selective care unit. He is currently sitting up in bed. Awake and alert in no acute distress. He is maintaining good O2 saturations in the 90s on 3 L/min per nasal cannula. No IV fluids. He is feeling better today compared to yesterday. Still somewhat bronchospastic and wheezing. He is continued on DuoNeb inhalations, Pulmicort and Perforomist inhalations, IV Solu-Medrol. He is on antibiotics in the form of ceftriaxone. Currently on a Cardizem drip at 10 mg/h. He did develop atrial fibrillation with a rapid ventricular response today. Urine culture positive for gram-negative bacilli. Blood culture revealing no growth. Sputum culture revealing no growth. White count 16.7. Hemoglobin 11.7. Platelets 212. Sodium 134. Potassium 5.0. Bicarb 20. BUN 94. Creatinine 4.88. Glucose 300. Procalcitonin 0.26. Objective - Vital Signs Vital signs: Vital Signs Temp 97.9 F 03/15/24 08:00 Pulse 108 H 03/15/24 11:33 Resp 20 03/15/24 11:21 BP 133/80 03/15/24 11:21 Pulse Ox 99 03/15/24 11:21 FiO2 Intake & Output 03/14/24 03/15/24 03/15/24 18:59 06:59 18:59 Intake Total 618 20 900 Output Total 800 300 950 Balance -182 -280 -50 Weight 122.3 kg 101.4 kg Intake: IV 20 20 Invasive Line 1 20 20 Oral 598 900 Output: Urine 800 300 950 Other: Voiding Method Indwelling Catheter Indwelling Catheter Indwelling Catheter # Bowel Movements 1 - Exam GENERAL EXAM: Alert, pleasant 78-year-old male, sitting up in bed, on 3 L nasal cannula, in a mild respiratory distress. HEAD: Normocephalic and atraumatic EYES: Normal reaction of pupils, equal size. NOSE: Clear with pink turbinates. THROAT: No erythema or exudates. NECK: No masses, no JVD. CHEST: No chest wall deformity. LUNGS: Equal air entry with diffuse bilateral expiratory wheezes. CVS: S1 and S2 normal with no audible murmur, regular rhythm. No extra heart sounds ABDOMEN: No hepatosplenomegaly, active bowel sounds, no guarding or rigidity. SPINE: No scoliosis or deformity SKIN: No rashes CENTRAL NERVOUS SYSTEM: No focal deficits, tone is normal in all 4 extremities. EXTREMITIES: There is no peripheral edema, clubbing, or cyanosis. Peripheral pulses are intact. - Labs CBC & Chem 7: 03/15/24 08:33 03/15/24 08:33 Labs: Abnormal Lab Results - Last 24 Hours (Table) 03/14/24 03/14/24 03/15/24 Range/Units 16:09 20:18 05:50 WBC (3.8-10.6) k/uL RBC (4.30-5.90) m/uL Hgb (13.0-17.5) gm/dL Hct (39.0-53.0) % Neutrophils # (1.3-7.7) k/uL Lymphocytes # (1.0-4.8) k/uL Sodium (137-145) mmol/L Carbon Dioxide (22-30) mmol/L BUN (9-20) mg/dL Creatinine (0.66-1.25) mg/dL Glucose (74-99) mg/dL POC Glucose (mg/dL) 375 H 392 H 354 H (70-110) mg/dL Total Protein (6.3-8.2) g/dL 03/15/24 03/15/24 03/15/24 Range/Units 08:33 08:33 11:40 WBC 16.7 H (3.8-10.6) k/uL RBC 3.79 L (4.30-5.90) m/uL Hgb 11.7 L (13.0-17.5) gm/dL Hct 36.3 L (39.0-53.0) % Neutrophils # 15.6 H (1.3-7.7) k/uL Lymphocytes # 0.4 L (1.0-4.8) k/uL Sodium 134 L (137-145) mmol/L Carbon Dioxide 20 L (22-30) mmol/L BUN 94 H (9-20) mg/dL Creatinine 4.88 H (0.66-1.25) mg/dL Glucose 300 H (74-99) mg/dL POC Glucose (mg/dL) 208 H (70-110) mg/dL Total Protein 6.0 L (6.3-8.2) g/dL Microbiology - Last 24 Hours (Table) 03/13/24 17:12 Gram Stain - Preliminary Sputum 03/13/24 16:53 Blood Culture - Preliminary Blood 03/13/24 18:17 Urine Culture - Preliminary Urine,Catheterized Gram Neg Bacilli Assessment and Plan Assessment: Acute hypoxemic respiratory failure, currently on 2 L/min nasal cannula, likely secondary to acute COPD exacerbation and a systolic CHF exacerbation. Chest x- ray on arrival showed low lung volumes and general hazy appearance, atelectasis versus pulmonary edema. NT proBNP was elevated at 4860. Negative for influenza, RSV, COVID Atrial fibrillation with a rapid ventricular response, initiated on a Cardizem drip Acute exacerbation of chronic systolic congestive heart failure. Ejection fraction 35 to 40%. Global hypokinesis Acute on chronic kidney disease, possibly postobstructive secondary to r etention, patient has indwelling urinary catheter placed Urinary tract infection secondary to gram-negative bacilli, currently on ceftriaxone Elevated troponin, possibly supply/demand related Chronic kidney disease stage IIIb History of BPH with previous TURP History of hyperlipidemia History of hypertension History of diabetes mellitus History of coronary artery disease with previous PCI/stent Moderate chronic obstructive pulmonary disease Obstructive sleep apnea Obesity, with a BMI of 38.7 kg/m Plan: The patient was seen and evaluated Labs and medications reviewed Echocardiogram reviewed Continue the current treatment plan Titrate down the FiO2 as tolerated Increase his activity as tolerated We will continue to follow I have personally seen and examined the patient, performed the documentation and the assessment and plan as written. Number of minutes spent on the visit: 10.
[2024-03-15] MEDS: methylPREDNISolone SOD SUCCI 40 MG/ML 1 ML VIAL IV SCH (16:26)
--- NOTE | 2024-03-15 16:32 | P.PN ---
Subjective Patient is seen for follow-up for acute kidney injury and chronic kidney disease stage IV with baseline creatinine 2.6 to 2.8 mg/dL. Admitted to the hospital with complaints of shortness of breath and weakness. Cardiomyopathy with a EF of 35 to 40%. Currently being treated for COPD exacerbation. Status post Lasix on initial admission. Patient has significant urine retention and currently has an indwelling Reynolds catheter. Renal function has not improved. Serum creatinine has increased to 4.8 today. I have discussed renal replacement therapy with the patient. Patient's granddaughter is a nurse. Patient and family is advised that we will likely need to start renal replacement therapy this admission. There is no urgent indication for dialysis today however if renal function continues to deteriorate over the weekend patient will need to start dialysis. They are agreeable. Objective - Vital Signs Vital signs: Vital Signs Temp 97.9 F 03/15/24 08:00 Pulse 108 H 03/15/24 11:33 Resp 20 03/15/24 11:21 BP 133/80 03/15/24 11:21 Pulse Ox 99 03/15/24 11:21 FiO2 Intake & Output 03/14/24 03/15/24 03/15/24 18:59 06:59 18:59 Intake Total 618 20 900 Output Total 800 300 950 Balance -182 -280 -50 Weight 122.3 kg 101.4 kg Intake: IV 20 20 Invasive Line 1 20 20 Oral 598 900 Output: Urine 800 300 950 Other: Voiding Method Indwelling Catheter Indwelling Catheter Indwelling Catheter # Bowel Movements 1 - Exam Patient is awake, comfortable, no acute distress. No asterixis Examination of the heart S1 and S2 Examination of the lungs decreased breath sounds at the bases with bilateral wheezing Abdomen is soft obese nontender Examination of lower extremity shows edema 1+ bilaterally with chronic skin changes. PERSONAL SECURITY SPECIALIST exam grossly intact - Labs CBC & Chem 7: 03/15/24 08:33 03/15/24 08:33 Labs: Abnormal Lab Results - Last 24 Hours (Table) 03/14/24 03/15/24 03/15/24 Range/Units 20:18 05:50 08:33 WBC 16.7 H (3.8-10.6) k/uL RBC 3.79 L (4.30-5.90) m/uL Hgb 11.7 L (13.0-17.5) gm/dL Hct 36.3 L (39.0-53.0) % Neutrophils # 15.6 H (1.3-7.7) k/uL Lymphocytes # 0.4 L (1.0-4.8) k/uL Sodium (137-145) mmol/L Carbon Dioxide (22-30) mmol/L BUN (9-20) mg/dL Creatinine (0.66-1.25) mg/dL Glucose (74-99) mg/dL POC Glucose (mg/dL) 392 H 354 H (70-110) mg/dL Total Protein (6.3-8.2) g/dL 03/15/24 03/15/24 Range/Units 08:33 11:40 WBC (3.8-10.6) k/uL RBC (4.30-5.90) m/uL Hgb (13.0-17.5) gm/dL Hct (39.0-53.0) % Neutrophils # (1.3-7.7) k/uL Lymphocytes # (1.0-4.8) k/uL Sodium 134 L (137-145) mmol/L Carbon Dioxide 20 L (22-30) mmol/L BUN 94 H (9-20) mg/dL Creatinine 4.88 H (0.66-1.25) mg/dL Glucose 300 H (74-99) mg/dL POC Glucose (mg/dL) 208 H (70-110) mg/dL Total Protein 6.0 L (6.3-8.2) g/dL Microbiology - Last 24 Hours (Table) 03/13/24 17:12 Gram Stain - Preliminary Sputum 03/13/24 16:53 Blood Culture - Preliminary Blood 03/13/24 18:17 Urine Culture - Preliminary Urine,Catheterized Gram Neg Bacilli Assessment and Plan Assessment: 1. Acute kidney injury mostly cardiorenal with component of urine retention, currently with indwelling Reynolds catheter. Serum creatinine has not improved and if there is no improvement in renal function in the next 24 to 48 hours patient will need to start renal replacement therapy. Check ultrasound of the kidneys. UA is suggestive of UTI with 1+ protein moderate blood and WBCs more than 182. We can consider inotropic agents as EF is 35 to 40%. 2. Pyuria rule out UTI 3. COPD exacerbation, acute maintained on steroids and antibiotics 3. Volume overload 4. Chronic systolic CHF 5. CKD mineral bone disorder maintained on calcitriol, calcium 8.3 6. Chronic kidney disease and Stage IV secondary to diabetic kidney disease and nephrosclerosis with baseline creatinine around 2.5-2.8 mg/dL 7. Urine retention status post evaluation by urology. Continue with Reynolds catheter. Plan: Continue with Reynolds catheter. Consider adding dobutamine given underlying cardiomyopathy with a EF of 35 to 40% Repeat labs in a.m. Patient will need to start renal replacement therapy if there is no improvement in renal function over the next 24 to 48 hours. Avoid nephrotoxic agents Continue with antibiotics. Check ultrasound of the kidneys
[2024-03-15 16:42] LABS: Glucose,Whole Blood 363 mg/dL (70-110)
--- NOTE | 2024-03-15 17:29 | US ---
EXAMINATION TYPE: US kidneys/renal and bladder DATE OF EXAM: 03/15/2024 COMPARISON: NONE CLINICAL INDICATION: Male, 78 years old with history of NANCY EXAM MEASUREMENTS: Right Kidney: 8.0 x 3.8 x 4.8 cm Left Kidney: 10.9 x 5.2 x 3.6 cm Manufacturing Storeperson notes:Technical limitations due to patient's body habitus Right Kidney: limited evaluation, hypoechoic round cortical lesion lower pole = 1.5 x 1.7 x 1.8cm. No obvious hydronephrosis. Left Kidney: limited evaluation, no evidence of hydronephrosis Bladder: Reynolds Catheter IMPRESSION: 1. Limited detailed assessment due to large patient body habitus. No evident hydronephrosis. 2. A 1.8 cm round hypoechoic lesion at the lower pole of the right kidney suspected to represent a [facility]. Internal echoes could be artifactual or could represent debris. Recommend 3 month follow-up to en sure stability.
[2024-03-15 20:21] LABS: Glucose,Whole Blood 353 mg/dL (70-110)
--- NOTE | 2024-03-15 21:53 | P.PN ---
Subjective HISTORY OF PRESENTING ILLNESS This is a pleasant 71-year-old with past medical history significant for COPD, CAD with prior stenting, diabetes mellitus type 2, hypertension, hyperlipidemia, chronic kidney disease. He follows in the office with Dr Ramos. He states that he has been having increased shortness of breath over last week and a half. He also has been having some upper abdominal achiness. Denies any specific chest pain or pressure. He has not really had an appetite over last few weeks. He does have chronic kidney disease with creatinine more than the 2.8 range however creatinine increased up before this admission. Denies any recent Motrin. No significant lightheadedness or dizziness. No recent changes to his medications. Chest x-ray performed which shows pulmonary vascular congestion. Patient also has diffuse wheezes on exam. EKG showing sinus rhythm with frequent PACs. Troponin 0.05, 0.05. Lactic acid 2.2. ProBNP 4860 03/15 Patient seen and examined. Patient went into atrial flutter with RVR with initial heart rates in the 140s and initially looked like SVT and therefore adenosine was given with no improvement. Patient was started on Cardizem drip with underlying atrial flutter waves. He does not have any history of atrial flutter. We discussed anticoagulation for stroke prevention patient is agre eable. We will place patient on Lovenox in case he needs possible dialysis catheter placement. Denies any chest pain or pressure. He has been somewhat symptomatic with the atrial flutter with more shortness of breath. PHYSICAL EXAMINATION Vital signs reviewed. CONSTITUTIONAL: No apparent distress. HEENT: Head is normocephalic. Pupils are equal, round. Sclerae anicteric. Mucous membranes of the mouth are moist. No JVD. No carotid bruit. CHEST EXAMINATION: Lungs are clear to auscultation. No chest wall tenderness is noted on palpation or with deep breathing. HEART EXAMINATION: Regular rate and rhythm. S1, S2 heard. No murmurs, gallops or rub. ABDOMEN: Soft, nontender. Positive bowel sounds. EXTREMITIES: 2+ peripheral pulses, no lower extremity edema and no calf tenderness. NEUROLOGIC EXAMINATION: Patient is awake, alert and oriented x3. ASSESSMENT Acute on chronic respiratory failure related to component of possible COPD exacerbation with audible wheezing plus component of heart failure/kidney failure Acute on chronic diastolic heart failure Acute on chronic kidney disease Elevated troponins, related to chronic kidney disease Atypical abdominal pain CAD with prior history of stenting Hypertension Hyperlipidemia Diabetes mellitus type 2 History of COPD Decreased appetite may be related to progressive CKD Typical atrial flutter, new onset with RVR PLAN Patient's x-ray consistent with vascular congestion and monitor response of diuretics. Acute kidney injury and a Reynolds was placed however Cr not improving and may eventually need HD. Avoid nephrotoxic agents. Echo showing LV EF 35-40% which may also be in part related to tachy induced Stop home Verapamil and attempt Toprol for better heart failure regimen. Monitor pulmonary status on Beta дмитрий Additionally attempt rhythm control and add Amio Wean Cardizem drip as able Attempt more HF regimen however BP borderline Objective - Vital Signs Vital signs: Vital Signs Temp 98.1 F 03/15/24 16:00 Pulse 78 03/15/24 20:49 Resp 20 03/15/24 16:00 BP 127/72 03/15/24 16:00 Pulse Ox 98 03/15/24 16:00 FiO2 Intake & Output 03/15/24 03/15/24 03/16/24 06:59 18:59 06:59 Intake Total 20 1136 Output Total 300 1225 200 Balance -280 -89 -200 Weight 101.4 kg Intake: IV 20 Invasive Line 1 20 Oral 1136 Output: Urine 300 1225 200 Other: Voiding Method Indwelling Catheter Indwelling Catheter - Labs CBC & Chem 7: 03/15/24 08:33 03/15/24 08:33 Labs: Abnormal Lab Results - Last 24 Hours (Table) 03/15/24 03/15/24 03/15/24 Range/Units 05:50 08:33 08:33 WBC 16.7 H (3.8-10.6) k/uL RBC 3.79 L (4.30-5.90) m/uL Hgb 11.7 L (13.0-17.5) gm/dL Hct 36.3 L (39.0-53.0) % Neutrophils # 15.6 H (1.3-7.7) k/uL Lymphocytes # 0.4 L (1.0-4.8) k/uL Sodium 134 L (137-145) mmol/L Carbon Dioxide 20 L (22-30) mmol/L BUN 94 H (9-20) mg/dL Creatinine 4.88 H (0.66-1.25) mg/dL Glucose 300 H (74-99) mg/dL POC Glucose (mg/dL) 354 H (70-110) mg/dL Total Protein 6.0 L (6.3-8.2) g/dL 03/15/24 03/15/24 03/15/24 Range/Units 11:40 16:40 20:19 WBC (3.8-10.6) k/uL RBC (4.30-5.90) m/uL Hgb (13.0-17.5) gm/dL Hct (39.0-53.0) % Neutrophils # (1.3-7.7) k/uL Lymphocytes # (1.0-4.8) k/uL Sodium (137-145) mmol/L Carbon Dioxide (22-30) mmol/L BUN (9-20) mg/dL Creatinine (0.66-1.25) mg/dL Glucose (74-99) mg/dL POC Glucose (mg/dL) 208 H 363 H 353 H (70-110) mg/dL Total Protein (6.3-8.2) g/dL Microbiology - Last 24 Hours (Table) 03/13/24 17:12 Gram Stain - Preliminary Sputum Sputum Culture - Preliminary 03/13/24 16:53 Blood Culture - Preliminary Blood
[2024-03-15] MEDS ORDERED: HEPARIN SODIUM 1,000 UN/ML (10ML VL) IV PRN (21:56)
[2024-03-15 22:23] LABS: Hepatitis B Surface AB- Quant 3.5 mIU/mL; Hepatitis B Surface Antigen Nonreactive (Nonreactive)
[2024-03-15 22:24] LABS: Basophils % (A) 0 %; Eosinophils # (A) 0.1 k/uL (0-0.7); Eosinophils % (A) 1 %; HCT 33.7 % (39.0-53.0); Hypochromasia Slight; Lymphocytes # (A) 0.3 k/uL (1.0-4.8); Lymphocytes % (A) 1 %; MCH 30.9 pg (25.0-35.0); MCHC 32.5 g/dL (31.0-37.0); MCV 95.1 fL (80.0-100.0); Mean Platelet Volume 7.8; Monocytes # (A) 0.7 k/uL (0-1.0); Monocytes % (A) 4 %; Neutrophils % (A) 94 %; Platelet Count 203 k/uL (150-450); RBC 3.55 m/uL (4.30-5.90); RDW 14.8 % (11.5-15.5); WBC 18.1 k/uL (3.8-10.6)
[2024-03-15 22:35] LABS: INR 1.1 (<1.2); Partial Thromboplastin Time 24.6 sec (22.0-30.0); Prothrombin Time 12.1 sec (10.0-12.5)
[2024-03-15] MEDS: DEXTROSE 5% IN WATER 100 ML with AMIODARONE 150 MG IV ONE (22:35)
[2024-03-15] MEDS: AMIODARONE 360 MG in DEXTROSE 5% IN WATER 200 ML IV ONE (22:59)
[2024-03-15] MEDS: HEPARIN SODIUM 1,000 UN/ML (10ML VL) IV ONE (23:00)
[2024-03-15] MEDS: HEPARIN SOD,PORK IN 0.45% NACL 25,000 UNIT in 0.45% NACL 1 250ML.BAG IV SCH (23:00)
[2024-03-15] MEDS: METOPROLOL SUCCINATE (ER) 25 MG TAB.ER.24H PO SCH (23:00)
--- NOTE | 2024-03-15 23:34 | PN ---
PROGRESS NOTE DATE OF SERVICE: 03/15/2024 SUBJECTIVE: This is an 78-year-old gentleman, who was admitted with COPD, CHF acute exacerbation, also had renal failure. The patient is being closely monitored at this time. 2D echo has been noted. The patient has urinary retention, Reynolds catheter has been inserted. Currently today, the creatinine is 4.88 indicating some worsening. The patient is not oliguric at this time. Yesterday's output was almost 1.2 L. No chest pain. No palpitation. PAST MEDICAL HISTORY: Reviewed. REVIEW OF SYSTEMS: A 14-point review is negative except as mentioned earlier. CURRENT MEDICATIONS: Reviewed include DuoNeb. PHYSICAL EXAMINATION: VITAL SIGNS: Pulse is 108, blood pressure 133/80, respirations 20. HEENT: Conjunctivae normal. NECK: No JVD. CARDIOVASCULAR: S1, S2. RESPIRATIONS: Breath sounds diminished at the bases. A few scattered rhonchi. ABDOMEN: Soft. NERVOUS SYSTEM: Nonfocal. LABORATORY DATA: WBC 16.7, sodium 134, creatinine 4.88. ASSESSMENT: 1. Shortness of breath, possibly combination of chronic obstructive pulmonary disease and congestive heart failure acute exacerbation with acute on chronic systolic dysfunction, ejection fraction 35% to 40%. 2. Acute on chronic renal failure. 3. Chronic kidney disease stage 3 baseline. 4. Elevated plasma and lactic acid. 5. Troponin 0.05 indeterminate. 6. History of coronary artery disease. 7. Diabetes mellitus, type 2. 8. Hypertension. 9. Hyperlipidemia. 10.History of myocardial infarction. 11.History of coronary artery disease stent. 12.History of sleep apnea. 13.Possible acute urinary tract infection. RECOMMENDATIONS AND DISCUSSION: Recommended to continue current medications, continue symptomatic treatment. Urine culture showed gram-negative bacilli. Continue with empiric antibiotics. Otherwise, repeat labs, steroids, bronchodilators. Prognosis guarded because of multiple complex medical issues. Further recommendations to follow. Antibiotics for possible UTI. White count is 16.7. We will repeat the labs. MMODL / IJN: [id number] /
[2024-03-16] MEDS: AMIODARONE 450 MG in DEXTROSE 5% IN WATER 250 ML IV SCH (04:37)
[2024-03-16 05:35] LABS: Glucose,Whole Blood 345 mg/dL (70-110)
[2024-03-16 05:47] LABS: Basophils % (A) 0 %; Eosinophils % (A) 0 %; HCT 36.4 % (39.0-53.0); HGB 11.5 gm/dL (13.0-17.5); Hypochromasia Slight; Lymphocytes # (A) 0.3 k/uL (1.0-4.8); Lymphocytes % (A) 2 %; MCH 30.3 pg (25.0-35.0); MCHC 31.6 g/dL (31.0-37.0); MCV 95.8 fL (80.0-100.0); Monocytes # (A) 0.7 k/uL (0-1.0); Monocytes % (A) 5 %; Neutrophils # (A) 14.4 k/uL (1.3-7.7); Neutrophils % (A) 93 %; Platelet Count 212 k/uL (150-450); WBC 15.5 k/uL (3.8-10.6)
[2024-03-16 06:04] LABS: African American GFR (CKD) 12 (>60 ml/min/1.73 sqM); Anion Gap 12 mmol/L; Calcium 8.1 mg/dL (8.4-10.2); Carbon Dioxide 17 mmol/L (22-30); Chloride 102 mmol/L (98-107); Glucose 303 mg/dL (74-99); Non-African American GFR(CKD) 11 (>60 ml/min/1.73 sqM); Potassium 4.9 mmol/L (3.5-5.1); Sodium 131 mmol/L (137-145)
[2024-03-16 06:16] LABS: INR 1.1 (<1.2); Partial Thromboplastin Time 48.9 sec (22.0-30.0); Prothrombin Time 11.7 sec (10.0-12.5)
[2024-03-16 07:52] LABS: Blood Urea Nitrogen 113 mg/dL (9-20)
--- NOTE | 2024-03-16 10:09 | P.PN ---
Subjective Patient is seen in follow-up for acute kidney injury on chronic kidney disease. No improvement in renal function. Nonoliguric. Has Reynolds catheter. Denies chest pain or shortness of breath. On amiodarone drip for A-fib. Vital signs are stable. General: No acute distress. HEENT: Head exam is unremarkable. LUNGS: No audible rhonchi or wheezes. HEART: Rate and Rhythm are regular. ABDOMEN: Nontender. EXTREMITITES: No edema. Objective - Vital Signs Vital signs: Vital Signs Temp 98.0 F 03/16/24 08:59 Pulse 89 03/16/24 08:59 Resp 20 03/16/24 08:59 BP 117/56 03/16/24 08:59 Pulse Ox 97 03/16/24 08:59 FiO2 Intake & Output 03/15/24 03/16/24 03/16/24 18:59 06:59 18:59 Intake Total 1136 Output Total 1225 650 Balance -89 -650 Weight 123 kg Intake: Oral 1136 Output: Urine 1225 650 Other: Voiding Method Indwelling Catheter Indwelling Catheter Indwelling Catheter - Labs CBC & Chem 7: 03/16/24 05:11 03/16/24 05:11 Labs: Abnormal Lab Results - Last 24 Hours (Table) 03/15/24 03/15/24 03/15/24 Range/Units 11:40 16:40 20:19 WBC (3.8-10.6) k/uL RBC (4.30-5.90) m/uL Hgb (13.0-17.5) gm/dL Hct (39.0-53.0) % Neutrophils # (1.3-7.7) k/uL Lymphocytes # (1.0-4.8) k/uL APTT (22.0-30.0) sec Sodium (137-145) mmol/L Carbon Dioxide (22-30) mmol/L BUN (9-20) mg/dL Creatinine (0.66-1.25) mg/dL Glucose (74-99) mg/dL POC Glucose (mg/dL) 208 H 363 H 353 H (70-110) mg/dL Calcium (8.4-10.2) mg/dL 03/15/24 03/16/24 03/16/24 Range/Units 22:05 05:11 05:11 WBC 18.1 H (3.8-10.6) k/uL RBC 3.55 L (4.30-5.90) m/uL Hgb 11.0 L (13.0-17.5) gm/dL Hct 33.7 L (39.0-53.0) % Neutrophils # 17.0 H (1.3-7.7) k/uL Lymphocytes # 0.3 L (1.0-4.8) k/uL APTT 48.9 H (22.0-30.0) sec Sodium 131 L (137-145) mmol/L Carbon Dioxide 17 L (22-30) mmol/L BUN 113 H* (9-20) mg/dL Creatinine 4.79 H (0.66-1.25) mg/dL Glucose 303 H (74-99) mg/dL POC Glucose (mg/dL) (70-110) mg/dL Calcium 8.1 L (8.4-10.2) mg/dL 03/16/24 03/16/24 Range/Units 05:11 05:34 WBC 15.5 H (3.8-10.6) k/uL RBC 3.80 L (4.30-5.90) m/uL Hgb 11.5 L (13.0-17.5) gm/dL Hct 36.4 L (39.0-53.0) % Neutrophils # 14.4 H (1.3-7.7) k/uL Lymphocytes # 0.3 L (1.0-4.8) k/uL APTT (22.0-30.0) sec Sodium (137-145) mmol/L Carbon Dioxide (22-30) mmol/L BUN (9-20) mg/dL Creatinine (0.66-1.25) mg/dL Glucose (74-99) mg/dL POC Glucose (mg/dL) 345 H (70-110) mg/dL Calcium (8.4-10.2) mg/dL Microbiology - Last 24 Hours (Table) 03/13/24 16:53 Blood Culture - Preliminary Blood 03/13/24 18:17 Urine Culture - Final Urine,Catheterized Klebsiella pneumoniae 03/13/24 17:12 Gram Stain - Preliminary Sputum Sputum Culture - Preliminary Assessment and Plan Plan: Assessment: 1. Acute kidney injury secondary to ATN secondary to cardiorenal syndrome and hemodynamic instability. Creatinine 4.79 today. Elevated BUN due to acute kidney injury as well as steroids. Nonoliguric. No hydronephrosis noted on kidney ultrasound. Right kidney atrophic. 2. Chronic kidney disease stage IV secondary to diabetic kidney disease and nephrosclerosis with baseline creatinine 2.5-2.8. 3. Acute on chronic systolic CHF with ejection fraction of 35 to 40%. 4. Klebsiella UTI on antibiotics. 5. Urinary retention. Has Reynolds catheter. On Flomax. Urology following. 6. Volume overload. Improved. 7. Chronic kidney disease mineral bone disease maintained on calcitriol. 8. A-fib with RVR maintained on amiodarone drip. 9. Metabolic acidosis secondary to acute kidney injury. Plan: Encouraged oral intake. Add oral bicarb. Check phosphorus level. Strict I's and O's. Continue to monitor renal function and urine output. If no improvement in renal function and urine output in the next 24 to 48 hours, will initiate renal placement therapy. Discussed with patient and his present at bedside. Agreeable.
--- NOTE | 2024-03-16 11:41 | P.PN ---
Subjective Progress Note Date: 03/16/24 Patient is an 78-year-old white male with past medical history significant for COPD, obstructive sleep apnea, coronary artery disease, hypertension, hyperlipidemia, chronic kidney disease, BPH and previous TURP. His primary care provider is Dr. Isbell. Did follow with Dr. Delacruz in the pulmonary office in the past, but has not been back in some time. He is known to have moderate COPD. Patient presented to emergency room yesterday complaining of about 4 weeks of worsening shortness of breath. Accompanied by chest tightness, wheezing, cough with green phlegm. Chest x-ray on arrival showed low lung volumes and general hazy appearance, atelectasis versus pulmonary edema. Also, noted to be more confused at home. ABG was drawn in the emergency department, with a PaO2 of 93, pCO2 of 37, pH of 7.36. He is also has had issues with frequent urination and incomplete voiding. He has history of urinary retention and underwent previous TURP in the past. Denies any burning or dysuria. Denies suprapubic pain. Denies fevers. Urinalysis positive for leukocyte esterase and bacteria. CBC: WBC count 12.1, hemoglobin 12.8, hematocrit 40.5, platelets 274. CMP: Sodium 143, potassium 4.2, chloride 110, serum bicarb 20, BUN 87, creatinine 4.44, glucose 72. Does have an indwelling urinary catheter. lactic 2. LFTs not elevated. Troponin 0.047. NT proBNP 4860. Negative for influenza, RSV, COVID. He is currently sitting up at the edge of the bed, reportedly just got up to use the bathroom. Seems to be oriented. He is on 2 L/min nasal cannula. SpO2 is 98%. He has audible wheezing. Vital signs are stable. The patient is seen today March 15, 2024 in follow-up on the selective care unit. He is currently sitting up in bed. Awake and alert in no acute distress. He is maintaining good O2 saturations in the 90s on 3 L/min per nasal cannula. No IV fluids. He is feeling better today compared to yesterday. Still somewhat bronchospastic and wheezing. He is continued on DuoNeb inhalations, Pulmicort and Perforomist inhalations, IV Solu-Medrol. He is on antibiotics in the form of ceftriaxone. Currently on a Cardizem drip at 10 mg/h. He did develop atrial fibrillation with a rapid ventricular response today. Urine culture positive for gram-negative bacilli. Blood culture revealing no growth. Sputum culture revealing no growth. White count 16.7. Hemoglobin 11.7. Platelets 212. Sodium 134. Potassium 5.0. Bicarb 20. BUN 94. Creatinine 4.88. Glucose 300. Procalcitonin 0.26. The patient is seen today March 16, 2024 in follow-up on the selective care unit. He is currently resting in bed. Awake and alert in no acute distress. He is maintaining O2 saturations in the 90s on room air. He is continued on a heparin drip. Continue on amiodarone drip at 0.5 mg/min. He is continued on DuoNeb and elations, Pulmicort and performing scintillations, Solu-Medrol at 40 mg every 8 hours. The patient is still somewhat bronchospastic and wheezing. He remains in atrial fibrillation with a better controlled ventricular response. He is on antibiotics in the form of ceftriaxone. Urine culture was positive for Klebsiella pneumoniae. Sputum culture revealed no growth. Blood cultures revealed no growth. White count 15.5. Hemoglobin 11.5. Platelets 212. Sodium 131. Potassium 4.9. Bicarb 17. BUN 113. Creatinine 4.79. Glucose 303. He has been initiated on sodium bicarb tablets. Current urine output 450 mL. Objective - Vital Signs Vital signs: Vital Signs Temp 98.0 F 03/16/24 08:59 Pulse 89 03/16/24 08:59 Resp 20 03/16/24 08:59 BP 117/56 03/16/24 08:59 Pulse Ox 97 03/16/24 08:59 FiO2 Intake & Output 03/15/24 03/16/24 03/16/24 18:59 06:59 18:59 Intake Total 1136 Output Total 1225 650 Balance -89 -650 Weight 123 kg Intake: Oral 1136 Output: Urine 1225 650 Other: Voiding Method Indwelling Catheter Indwelling Catheter Indwelling Catheter - Exam GENERAL EXAM: Alert, pleasant 78-year-old male, on room air, comfortable in no acute distress. HEAD: Normocephalic and atraumatic EYES: Normal reaction of pupils, equal size. NOSE: Clear with pink turbinates. THROAT: No erythema or exudates. NECK: No masses, no JVD. CHEST: No chest wall deformity. LUNGS: Equal air entry with bilateral expiratory wheezes. CVS: S1 and S2 normal with no audible murmur, regular rhythm. No extra heart sounds ABDOMEN: No hepatosplenomegaly, active bowel sounds, no guarding or rigidity. SPINE: No scoliosis or deformity SKIN: No rashes CENTRAL NERVOUS SYSTEM: No focal deficits, tone is normal in all 4 extremities. EXTREMITIES: There is no peripheral edema, clubbing, or cyanosis. Peripheral pulses are intact. - Labs CBC & Chem 7: 03/16/24 05:11 03/16/24 05:11 Labs: Abnormal Lab Results - Last 24 Hours (Table) 03/15/24 03/15/24 03/15/24 Range/Units 11:40 16:40 20:19 WBC (3.8-10.6) k/uL RBC (4.30-5.90) m/uL Hgb (13.0-17.5) gm/dL Hct (39.0-53.0) % Neutrophils # (1.3-7.7) k/uL Lymphocytes # (1.0-4.8) k/uL APTT (22.0-30.0) sec Sodium (137-145) mmol/L Carbon Dioxide (22-30) mmol/L BUN (9-20) mg/dL Creatinine (0.66-1.25) mg/dL Glucose (74-99) mg/dL POC Glucose (mg/dL) 208 H 363 H 353 H (70-110) mg/dL Calcium (8.4-10.2) mg/dL 03/15/24 03/16/24 03/16/24 Range/Units 22:05 05:11 05:11 WBC 18.1 H (3.8-10.6) k/uL RBC 3.55 L (4.30-5.90) m/uL Hgb 11.0 L (13.0-17.5) gm/dL Hct 33.7 L (39.0-53.0) % Neutrophils # 17.0 H (1.3-7.7) k/uL Lymphocytes # 0.3 L (1.0-4.8) k/uL APTT 48.9 H (22.0-30.0) sec Sodium 131 L (137-145) mmol/L Carbon Dioxide 17 L (22-30) mmol/L BUN 113 H* (9-20) mg/dL Creatinine 4.79 H (0.66-1.25) mg/dL Glucose 303 H (74-99) mg/dL POC Glucose (mg/dL) (70-110) mg/dL Calcium 8.1 L (8.4-10.2) mg/dL 03/16/24 03/16/24 Range/Units 05:11 05:34 WBC 15.5 H (3.8-10.6) k/uL RBC 3.80 L (4.30-5.90) m/uL Hgb 11.5 L (13.0-17.5) gm/dL Hct 36.4 L (39.0-53.0) % Neutrophils # 14.4 H (1.3-7.7) k/uL Lymphocytes # 0.3 L (1.0-4.8) k/uL APTT (22.0-30.0) sec Sodium (137-145) mmol/L Carbon Dioxide (22-30) mmol/L BUN (9-20) mg/dL Creatinine (0.66-1.25) mg/dL Glucose (74-99) mg/dL POC Glucose (mg/dL) 345 H (70-110) mg/dL Calcium (8.4-10.2) mg/dL Microbiology - Last 24 Hours (Table) 03/13/24 17:12 Gram Stain - Final Sputum Sputum Culture - Final 03/13/24 16:53 Blood Culture - Preliminary Blood 03/13/24 18:17 Urine Culture - Final Urine,Catheterized Klebsiella pneumoniae Assessment and Plan Assessment: Acute hypoxemic respiratory failure, recovered and on room air, likely secondary to acute COPD exacerbation and a systolic CHF exacerbation. Chest x-ray on arrival showed low lung volumes and general hazy appearance, atelectasis versus pulmonary edema. NT proBNP was elevated at 4860. Negative for influenza, RSV, COVID Atrial fibrillation with a rapid ventricular response, currently on an amiod arone drip, heparin drip Acute exacerbation of chronic systolic congestive heart failure. Ejection fraction 35 to 40%. Global hypokinesis Acute on chronic kidney disease, possibly postobstructive secondary to retention, patient has indwelling urinary catheter placed Urinary tract infection secondary to Klebsiella pneumoniae, currently on ceftriaxone Elevated troponin, possibly supply/demand related Chronic kidney disease stage IV History of BPH with previous TURP History of hyperlipidemia History of hypertension History of diabetes mellitus History of coronary artery disease with previous PCI/stent Moderate chronic obstructive pulmonary disease Obstructive sleep apnea Obesity, with a BMI of 38.9 kg/m Plan: The patient was seen and evaluated Labs and medications reviewed Initiated on sodium bicarb tablets May require renal replacement therapy Still somewhat bronchospastic and wheezing Increase Solu-Medrol 60 mg IV every 6 hours Continue bronchodilators Increase his activity as tolerated We will continue to follow I have personally seen and examined the patient, performed the documentation and the assessment and plan as written. Number of minutes spent on the visit: 10.
[2024-03-16 11:44] LABS: Glucose,Whole Blood 415 mg/dL (70-110)
[2024-03-16] MEDS: SODIUM BICARBONATE TAB 650 MG TAB PO SCH (11:51)
--- NOTE | 2024-03-16 12:31 | P.PN ---
Subjective Progress Note Date: 03/16/24 HISTORY OF PRESENTING ILLNESS This is a pleasant 71-year-old with past medical history significant for COPD, CAD with prior stenting, diabetes mellitus type 2, hypertension, hyperlipidemia, chronic kidney disease. He follows in the office with Dr Ramos. He states that he has been having increased shortness of breath over last week and a half. He also has been having some upper abdominal achiness. Denies any specific chest pain or pressure. He has not really had an appetite over last few weeks. He does have chronic kidney disease with creatinine more than the 2.8 range however creatinine increased up before this admission. Denies any recent Motrin. No significant lightheadedness or dizziness. No recent changes to his medications. Chest x-ray performed which shows pulmonary vascular con gestion. Patient also has diffuse wheezes on exam. EKG showing sinus rhythm with frequent PACs. Troponin 0.05, 0.05. Lactic acid 2.2. ProBNP 4860 03/15 Patient seen and examined. Patient went into atrial flutter with RVR with initial heart rates in the 140s and initially looked like SVT and therefore adenosine was given with no improvement. Patient was started on Cardizem drip with underlying atrial flutter waves. He does not have any history of atrial flutter. We discussed anticoagulation for stroke prevention patient is agreeable. We will place patient on Lovenox in case he needs possible dialysis catheter placement. Denies any chest pain or pressure. He has been somewhat symptomatic with the atrial flutter with more shortness of breath. 03/16 Patient seen and examined. Patient states that his breathing is okay. No chest pain and no chest pressure. He does complain of cough. No palpitations. Plan is to start patient on hemodialysis on Monday. He is on a heparin drip which will be continued until after that. Blood pressure 117/56, heart rate 89, pulse ox 97% on room air. Repeat blood work reveals WBC 15.5, hemoglobin 11.5. Sodium 131, potassium 4.9, BUN 113, creatinine 4.79. Reviewed records from the office. Patient has not had an echocardiogram since 2016 which revealed EF of 50%. Patient has not been in the office since July 2018. Patient is also been maintained on IV amiodarone. He is off Cardizem drip. PHYSICAL EXAMINATION Vital signs reviewed. CONSTITUTIONAL: No apparent distress. HEENT: Head is normocephalic. Pupils are equal, round. Sclerae anicteric. Mucous membranes of the mouth are moist. No JVD. No carotid bruit. CHEST EXAMINATION: Lungs are clear to auscultation. No chest wall tenderness is noted on palpation or with deep breathing. HEART EXAMINATION: Regular rate and rhythm. S1, S2 heard. No murmurs, gallops or rub. ABDOMEN: Soft, nontender. Positive bowel sounds. EXTREMITIES: 2+ peripheral pulses, no lower extremity edema and no calf tenderness. NEUROLOGIC EXAMINATION: Patient is awake, alert and oriented x3. ASSESSMENT Acute on chronic respiratory failure related to component of possible COPD exacerbation with audible wheezing plus component of heart failure/kidney failure Acute on chronic diastolic heart failure Acute on chronic kidney disease Elevated troponins, related to chronic kidney disease, not indicative of ischemia or injury Atypical abdominal pain CAD with prior history of stenting Hypertension Hyperlipidemia Diabetes mellitus type 2 History of COPD Decreased appetite may be related to progressive CKD Typical atrial flutter, new onset with RVR PLAN Acute kidney injury and a Reynolds was placed however Cr not improving and plan is to start hemodialysis on Monday. Avoid nephrotoxic agents. Echo showing LV EF 35-40% which may also be in part related to tachy induced Continue Toprol for better heart failure regimen. Monitor pulmonary status on Beta дмитрий Transition IV amiodarone to oral 400 mg twice daily Plan is for medical therapy to optimize heart failure regime as able to tricia ate. Patient will be considered for outpatient ischemic workup. Nurse practitioner note has been reviewed, I agree with documented findings and plan of care. Patient was seen and examined. Objective - Vital Signs Vital signs: Vital Signs Temp 98.0 F 03/16/24 08:59 Pulse 89 03/16/24 08:59 Resp 20 03/16/24 08:59 BP 117/56 03/16/24 08:59 Pulse Ox 97 03/16/24 08:59 FiO2 Intake & Output 03/15/24 03/16/24 03/16/24 18:59 06:59 18:59 Intake Total 1136 Output Total 1225 650 Balance -89 -650 Weight 123 kg Intake: Oral 1136 Output: Urine 1225 650 Other: Voiding Method Indwelling Catheter Indwelling Catheter Indwelling Catheter - Labs CBC & Chem 7: 03/16/24 05:11 03/16/24 05:11 Labs: Abnormal Lab Results - Last 24 Hours (Table) 03/15/24 03/15/24 03/15/24 Range/Units 16:40 20:19 22:05 WBC 18.1 H (3.8-10.6) k/uL RBC 3.55 L (4.30-5.90) m/uL Hgb 11.0 L (13.0-17.5) gm/dL Hct 33.7 L (39.0-53.0) % Neutrophils # 17.0 H (1.3-7.7) k/uL Lymphocytes # 0.3 L (1.0-4.8) k/uL APTT (22.0-30.0) sec Sodium (137-145) mmol/L Carbon Dioxide (22-30) mmol/L BUN (9-20) mg/dL Creatinine (0.66-1.25) mg/dL Glucose (74-99) mg/dL POC Glucose (mg/dL) 363 H 353 H (70-110) mg/dL Calcium (8.4-10.2) mg/dL 03/16/24 03/16/24 03/16/24 Range/Units 05:11 05:11 05:11 WBC 15.5 H (3.8-10.6) k/uL RBC 3.80 L (4.30-5.90) m/uL Hgb 11.5 L (13.0-17.5) gm/dL Hct 36.4 L (39.0-53.0) % Neutrophils # 14.4 H (1.3-7.7) k/uL Lymphocytes # 0.3 L (1.0-4.8) k/uL APTT 48.9 H (22.0-30.0) sec Sodium 131 L (137-145) mmol/L Carbon Dioxide 17 L (22-30) mmol/L BUN 113 H* (9-20) mg/dL Creatinine 4.79 H (0.66-1.25) mg/dL Glucose 303 H (74-99) mg/dL POC Glucose (mg/dL) (70-110) mg/dL Calcium 8.1 L (8.4-10.2) mg/dL 03/16/24 Range/Units 05:34 WBC (3.8-10.6) k/uL RBC (4.30-5.90) m/uL Hgb (13.0-17.5) gm/dL Hct (39.0-53.0) % Neutrophils # (1.3-7.7) k/uL Lymphocytes # (1.0-4.8) k/uL APTT (22.0-30.0) sec Sodium (137-145) mmol/L Carbon Dioxide (22-30) mmol/L BUN (9-20) mg/dL Creatinine (0.66-1.25) mg/dL Glucose (74-99) mg/dL POC Glucose (mg/dL) 345 H (70-110) mg/dL Calcium (8.4-10.2) mg/dL Microbiology - Last 24 Hours (Table) 03/13/24 17:12 Gram Stain - Final Sputum Sputum Culture - Final 03/13/24 16:53 Blood Culture - Preliminary Blood 03/13/24 18:17 Urine Culture - Final Urine,Catheterized Klebsiella pneumoniae
[2024-03-16] MEDS: AMIODARONE 200 MG TAB PO SCH (12:56)
[2024-03-16] MEDS: INSULIN DETEMIR (LEVEMIR) 100 UNIT/ML SYR SQ ONE (12:56)
[2024-03-16 14:07] LABS: Glucose,Whole Blood 382 mg/dL (70-110)
[2024-03-16] MEDS: methylPREDNISolone SOD SUCCI 125 MG/2 ML VIAL IV SCH (15:15)
[2024-03-16 16:30] LABS: Glucose,Whole Blood 326 mg/dL (70-110)
--- NOTE | 2024-03-16 16:59 | XR ---
EXAMINATION TYPE: XR chest 1V portable DATE OF EXAM: 03/16/2024 COMPARISON: 03/14/2024 HISTORY: 78-year-old male CHF TECHNIQUE: AP view FINDINGS: Heart mildly enlarged. Interstitial prominence without consolidation or pleural effusion. IMPRESSION: Mild cardiomegaly and possible mild pulmonary vascular congestion. No evidence for pulmonary edema.
[2024-03-16 20:29] LABS: Glucose,Whole Blood 301 mg/dL (70-110)
[2024-03-16] MEDS: INSULIN DETEMIR (LEVEMIR) 100 UNIT/ML SYR SQ SCH (20:49)
--- NOTE | 2024-03-17 02:07 | PN ---
PROGRESS NOTE DATE OF SERVICE: 03/16/2024 HISTORY OF PRESENT ILLNESS: This is an 78-year-old gentleman admitted with multiple medical problems including shortness of breath with a combination of COPD and CHF. He has significant wheezing also. Renal failure is also worsening, but the patient is nonoliguric. The patient is on amiodarone drip for atrial fibrillation. Renal replacement therapy is being planned if the patient is not improving in the next 24 to 48 hours. PAST MEDICAL HISTORY: Reviewed. REVIEW OF SYSTEMS: 14-point review is negative except as mentioned above. CURRENT MEDICATIONS: Reviewed. PHYSICAL EXAMINATION: VITAL SIGNS: Pulse is 78, blood pressure , respirations 20. CHEST: Few scattered rhonchi and crackles, expiratory wheezing. ABDOMEN: Soft, obese. LEGS: No edema. No swelling. LABORATORY DATA: Creatinine is 4.79, and glucose elevated at 382. ASSESSMENT: 1. Shortness of breath, possibly combination of chronic obstructive pulmonary disease and congestive heart failure, acute exacerbation, acute on chronic systolic dysfunction, ejection fraction 35% to 40%. 2. Acute on chronic renal failure. 3. Diabetes mellitus, type 2, uncontrolled with hyperglycemia. 4. Chronic kidney disease stage 3 baseline. 5. Elevated plasma, lactic acid. 6. Troponin 0.05, indeterminate. 7. Coronary artery disease. 8. Multiple complex medical issues. RECOMMENDATIONS AND DISCUSSION: This 78-year-old gentleman presented with multiple complex medical issues. We will monitor the patient closely. Continue the current medications. We will monitor the creatinine level and output. Otherwise, I would also recommend a portable chest x-ray on a daily basis. Continue the bronchodilators. Continue the IV steroids. I would also recommend to monitor blood sugars closely. I would initiate Lantus, and if the patient's blood sugar is not controlled, the patient will require insulin drip. Once again, overall prognosis is extremely guarded because of multiple complex medical issues. Further recommendations to follow. See orders for details. MMODL / IJN: [id number] / YULIET
[2024-03-17 06:12] LABS: Glucose,Whole Blood 194 mg/dL (70-110)
[2024-03-17 08:03] LABS: Basophils % (A) 0 %; Eosinophils % (A) 0 %; HCT 37.9 % (39.0-53.0); HGB 12.1 gm/dL (13.0-17.5); Lymphocytes # (A) 0.5 k/uL (1.0-4.8); Lymphocytes % (A) 3 %; MCH 29.8 pg (25.0-35.0); MCV 93.4 fL (80.0-100.0); Mean Platelet Volume 7.8; Monocytes # (A) 0.7 k/uL (0-1.0); Monocytes % (A) 5 %; Neutrophils % (A) 92 %; Platelet Count 200 k/uL (150-450); RBC 4.06 m/uL (4.30-5.90); RDW 14.8 % (11.5-15.5); WBC 15.2 k/uL (3.8-10.6)
[2024-03-17 08:38] LABS: ALT 29 U/L (4-49); AST 25 U/L (17-59); African American GFR (CKD) 11 (>60 ml/min/1.73 sqM); Albumin 3.3 g/dL (3.5-5.0); Alkaline Phosphatase 62 U/L (38-126); Anion Gap 12 mmol/L; Calcium 8.6 mg/dL (8.4-10.2); Carbon Dioxide 19 mmol/L (22-30); Chloride 105 mmol/L (98-107); Glucose 176 mg/dL (74-99); Magnesium 1.8 mg/dL (1.6-2.3); Non-African American GFR(CKD) 9 (>60 ml/min/1.73 sqM); Phosphorus 5.9 mg/dL (2.5-4.5); Potassium 4.5 mmol/L (3.5-5.1); Sodium 136 mmol/L (137-145); Total Bilirubin 0.3 mg/dL (0.2-1.3); Total Protein 5.8 g/dL (6.3-8.2)
[2024-03-17 09:54] LABS: Blood Urea Nitrogen 119 mg/dL (9-20)
--- NOTE | 2024-03-17 10:27 | P.PN ---
Subjective Progress Note Date: 03/17/24 Patient is an 78-year-old white male with past medical history significant for COPD, obstructive sleep apnea, coronary artery disease, hypertension, hyperlipidemia, chronic kidney disease, BPH and previous TURP. His primary care provider is Dr. Isbell. Did follow with Dr. Delacruz in the pulmonary office in the past, but has not been back in some time. He is known to have moderate COPD. Patient presented to emergency room yesterday complaining of about 4 weeks of worsening shortness of breath. Accompanied by chest tightness, wheezing, cough with green phlegm. Chest x-ray on arrival showed low lung volumes and general hazy appearance, atelectasis versus pulmonary edema. Also, noted to be more confused at home. ABG was drawn in the emergency department, with a PaO2 of 93, pCO2 of 37, pH of 7.36. He is also has had issues with frequent urination and incomplete voiding. He has history of urinary retention and underwent previous TURP in the past. Denies any burning or dysuria. Denies suprapubic pain. Denies fevers. Urinalysis positive for leukocyte esterase and bacteria. CBC: WBC count 12.1, hemoglobin 12.8, hematocrit 40.5, platelets 274. CMP: Sodium 143, potassium 4.2, chloride 110, serum bicarb 20, BUN 87, creatinine 4.44, glucose 72. Does have an indwelling urinary catheter. lactic 2. LFTs not elevated. Troponin 0.047. NT proBNP 4860. Negative for influenza, RSV, COVID. He is currently sitting up at the edge of the bed, reportedly just got up to use the bathroom. Seems to be oriented. He is on 2 L/min nasal cannula. SpO2 is 98%. He has audible wheezing. Vital signs are stable. The patient is seen today March 15, 2024 in follow-up on the selective care unit. He is currently sitting up in bed. Awake and alert in no acute distress. He is maintaining good O2 saturations in the 90s on 3 L/min per nasal cannula. No IV fluids. He is feeling better today compared to yesterday. Still somewhat bronchospastic and wheezing. He is continued on DuoNeb inhalations, Pulmicort and Perforomist inhalations, IV Solu-Medrol. He is on antibiotics in the form of ceftriaxone. Currently on a Cardizem drip at 10 mg/h. He did develop atrial fibrillation with a rapid ventricular response today. Urine culture positive for gram-negative bacilli. Blood culture revealing no growth. Sputum culture revealing no growth. White count 16.7. Hemoglobin 11.7. Platelets 212. Sodium 134. Potassium 5.0. Bicarb 20. BUN 94. Creatinine 4.88. Glucose 300. Procalcitonin 0.26. The patient is seen today March 16, 2024 in follow-up on the selective care unit. He is currently resting in bed. Awake and alert in no acute distress. He is maintaining O2 saturations in the 90s on room air. He is continued on a heparin drip. Continue on amiodarone drip at 0.5 mg/min. He is continued on DuoNeb inhalations, Pulmicort and Perforomist inhalations, Solu-Medrol at 40 mg every 8 hours. The patient is still somewhat bronchospastic and wheezing. He remains in atrial fibrillation with a better controlled ventricular response. He is on antibiotics in the form of ceftriaxone. Urine culture was positive for Klebsiella pneumoniae. Sputum culture revealed no growth. Blood cultures revealed no growth. White count 15.5. Hemoglobin 11.5. Platelets 212. Sodium 131. Potassium 4.9. Bicarb 17. BUN 113. Creatinine 4.79. Glucose 303. He has been initiated on sodium bicarb tablets. Current urine output 450 mL. The patient is seen today March 17, 2024 in follow-up on the selective care unit. He is currently resting comfortably in bed. Awake and alert in no acute distress. Maintaining good O2 saturations in the 90s on 2 L/min per nasal cannula. He remains on a heparin drip. He remains on DuoNeb inhalations, Pulmicort and Perforomist inhalations, Solu-Medrol. Antibiotics in the form of ceftriaxone. White count 15.2. Hemoglobin 12.1. Platelets 200,000. Sodium 136. Potassium 4.5. Bicarb 19. BUN 119. Creatinine 5.47. Glucose 176. Uri ne culture was positive for Klebsiella pneumoniae. Blood cultures revealed no growth. Sputum culture revealed no growth. Nephrology is following for possible renal replacement therapy. Chest x-ray reveals mild cardiomegaly and mild pulmonary vascular congestion. Objective - Vital Signs Vital signs: Vital Signs Temp 97.4 F L 03/17/24 04:00 Pulse 81 03/17/24 08:25 Resp 22 03/17/24 04:00 BP 128/63 03/17/24 04:00 Pulse Ox 95 03/17/24 08:06 FiO2 Intake & Output 03/16/24 03/17/24 03/17/24 18:59 06:59 18:59 Intake Total 1006 459.5 236 Output Total 800 900 Balance 206 -440.5 236 Intake: Intake, IV Titration 50 219.5 Amount Heparin Sod,Pork in 0.45% 219.5 NaCl 25,000 unit In 0.45 % NaCl 1 250ml.bag @ 9. 862 UNITS/KG/HR 10 mls/hr IV .Q24H [facility] Rx#: [id number] cefTRIAXone 1 gm In 50 Sodium Chloride 0.9% 50 ml @ 100 mls/hr IVPB Q24H [facility] Rx#:[id number] Oral 956 240 236 Output: Urine 800 900 Other: Voiding Method Indwelling Catheter Indwelling Catheter - Exam GENERAL EXAM: Alert, pleasant 78-year-old male, on 2 L/min per nasal cannula, comfortable in no acute distress. HEAD: Normocephalic and atraumatic EYES: Normal reaction of pupils, equal size. NOSE: Clear with pink turbinates. THROAT: No erythema or exudates. NECK: No masses, no JVD. CHEST: No chest wall deformity. LUNGS: Equal air entry with bilateral expiratory wheezes. CVS: S1 and S2 normal with no audible murmur, regular rhythm. No extra heart sounds ABDOMEN: No hepatosplenomegaly, active bowel sounds, no guarding or rigidity. SPINE: No scoliosis or deformity SKIN: No rashes CENTRAL NERVOUS SYSTEM: No focal deficits, tone is normal in all 4 extremities. EXTREMITIES: There is no peripheral edema, clubbing, or cyanosis. Peripheral pulses are intact. - Labs CBC & Chem 7: 03/17/24 06:39 03/17/24 06:39 Labs: Abnormal Lab Results - Last 24 Hours (Table) 03/16/24 03/16/24 03/16/24 Range/Units 11:39 14:06 16:26 WBC (3.8-10.6) k/uL RBC (4.30-5.90) m/uL Hgb (13.0-17.5) gm/dL Hct (39.0-53.0) % Neutrophils # (1.3-7.7) k/uL Lymphocytes # (1.0-4.8) k/uL APTT (22.0-30.0) sec Sodium (137-145) mmol/L Carbon Dioxide (22-30) mmol/L BUN (9-20) mg/dL Creatinine (0.66-1.25) mg/dL Glucose (74-99) mg/dL POC Glucose (mg/dL) 415 H 382 H 326 H (70-110) mg/dL Phosphorus (2.5-4.5) mg/dL Total Protein (6.3-8.2) g/dL Albumin (3.5-5.0) g/dL 03/16/24 03/17/24 03/17/24 Range/Units 20:26 06:11 06:39 WBC (3.8-10.6) k/uL RBC (4.30-5.90) m/uL Hgb (13.0-17.5) gm/dL Hct (39.0-53.0) % Neutrophils # (1.3-7.7) k/uL Lymphocytes # (1.0-4.8) k/uL APTT 47.5 H (22.0-30.0) sec Sodium (137-145) mmol/L Carbon Dioxide (22-30) mmol/L BUN (9-20) mg/dL Creatinine (0.66-1.25) mg/dL Glucose (74-99) mg/dL POC Glucose (mg/dL) 301 H 194 H (70-110) mg/dL Phosphorus (2.5-4.5) mg/dL Total Protein (6.3-8.2) g/dL Albumin (3.5-5.0) g/dL 03/17/24 03/17/24 Range/Units 06:39 06:39 WBC 15.2 H (3.8-10.6) k/uL RBC 4.06 L (4.30-5.90) m/uL Hgb 12.1 L (13.0-17.5) gm/dL Hct 37.9 L (39.0-53.0) % Neutrophils # 14.0 H (1.3-7.7) k/uL Lymphocytes # 0.5 L (1.0-4.8) k/uL APTT (22.0-30.0) sec Sodium 136 L (137-145) mmol/L Carbon Dioxide 19 L (22-30) mmol/L BUN 119 H* (9-20) mg/dL Creatinine 5.47 H (0.66-1.25) mg/dL Glucose 176 H (74-99) mg/dL POC Glucose (mg/dL) (70-110) mg/dL Phosphorus 5.9 H (2.5-4.5) mg/dL Total Protein 5.8 L (6.3-8.2) g/dL Albumin 3.3 L (3.5-5.0) g/dL Microbiology - Last 24 Hours (Table) 03/13/24 16:53 Blood Culture - Preliminary Blood 03/13/24 17:12 Gram Stain - Final Sputum Sputum Culture - Final Assessment and Plan Assessment: Acute hypoxemic respiratory failure, recovered and on room air, likely secondary to acute COPD exacerbation and a systolic CHF exacerbation. Chest x-ray on arrival showed low lung volumes and general hazy appearance, atelectasis versus pulmonary edema. NT proBNP was elevated at 4860. Negative for influenza, RSV, COVID Atrial fibrillation with a rapid ventricular response, currently on a heparin drip Acute exacerbation of chronic systolic congestive heart failure. Ejection fraction 35 to 40%. Global hypokinesis Acute on chronic kidney disease, possibly postobstructive secondary to retention, patient has indwelling urinary catheter placed Urinary tract infection secondary to Klebsiella pneumoniae, currently on ceftriaxone Elevated troponin, possibly supply/demand related Chronic kidney disease stage IV History of BPH with previous TURP History of hyperlipidemia History of hypertension History of diabetes mellitus History of coronary artery disease with previous PCI/stent Moderate chronic obstructive pulmonary disease Obstructive sleep apnea Obesity, with a BMI of 38.9 kg/m Plan: The patient was seen and evaluated Chest x-ray, labs and medications reviewed May require renal replacement therapy Continue DuoNeb, Pulmicort and Perforomist inhalations Continue Solu-Medrol Remains on ceftriaxone Increase his activity as tolerated We will continue to follow I have personally seen and examined the patient, performed the documentation and the assessment and plan as written. Number of minutes spent on the visit: 10.
--- NOTE | 2024-03-17 10:42 | P.PN ---
Subjective Patient is seen in follow-up for acute kidney injury on chronic kidney disease. Renal function worse. Nonoliguric. Has Reynolds catheter. Denies chest pain or shortness of breath. Now on oral amiodarone. Hemodynamically stable. Vital signs are stable. General: No acute distress. HEENT: Head exam is unremarkable. LUNGS: Scattered wheezing. HEART: Rate and Rhythm are regular. ABDOMEN: Nontender. EXTREMITITES: No edema. Objective - Vital Signs Vital signs: Vital Signs Temp 97.4 F L 03/17/24 04:00 Pulse 81 03/17/24 08:25 Resp 22 03/17/24 04:00 BP 128/63 03/17/24 04:00 Pulse Ox 95 03/17/24 08:06 FiO2 Intake & Output 03/16/24 03/17/24 03/17/24 18:59 06:59 18:59 Intake Total 1006 459.5 236 Output Total 800 900 Balance 206 -440.5 236 Intake: Intake, IV Titration 50 219.5 Amount Heparin Sod,Pork in 0.45% 219.5 NaCl 25,000 unit In 0.45 % NaCl 1 250ml.bag @ 9. 862 UNITS/KG/HR 10 mls/hr IV .Q24H [facility] Rx#: [id number] cefTRIAXone 1 gm In 50 Sodium Chloride 0.9% 50 ml @ 100 mls/hr IVPB Q24H [facility] Rx#:[id number] Oral 956 240 236 Output: Urine 800 900 Other: Voiding Method Indwelling Catheter Indwelling Catheter - Labs CBC & Chem 7: 03/17/24 06:39 03/17/24 06:39 Labs: Abnormal Lab Results - Last 24 Hours (Table) 03/16/24 03/16/24 03/16/24 Range/Units 11:39 14:06 16:26 WBC (3.8-10.6) k/uL RBC (4.30-5.90) m/uL Hgb (13.0-17.5) gm/dL Hct (39.0-53.0) % Neutrophils # (1.3-7.7) k/uL Lymphocytes # (1.0-4.8) k/uL APTT (22.0-30.0) sec Sodium (137-145) mmol/L Carbon Dioxide (22-30) mmol/L BUN (9-20) mg/dL Creatinine (0.66-1.25) mg/dL Glucose (74-99) mg/dL POC Glucose (mg/dL) 415 H 382 H 326 H (70-110) mg/dL Phosphorus (2.5-4.5) mg/dL Total Protein (6.3-8.2) g/dL Albumin (3.5-5.0) g/dL 03/16/24 03/17/24 03/17/24 Range/Units 20:26 06:11 06:39 WBC (3.8-10.6) k/uL RBC (4.30-5.90) m/uL Hgb (13.0-17.5) gm/dL Hct (39.0-53.0) % Neutrophils # (1.3-7.7) k/uL Lymphocytes # (1.0-4.8) k/uL APTT 47.5 H (22.0-30.0) sec Sodium (137-145) mmol/L Carbon Dioxide (22-30) mmol/L BUN (9-20) mg/dL Creatinine (0.66-1.25) mg/dL Glucose (74-99) mg/dL POC Glucose (mg/dL) 301 H 194 H (70-110) mg/dL Phosphorus (2.5-4.5) mg/dL Total Protein (6.3-8.2) g/dL Albumin (3.5-5.0) g/dL 03/17/24 03/17/24 Range/Units 06:39 06:39 WBC 15.2 H (3.8-10.6) k/uL RBC 4.06 L (4.30-5.90) m/uL Hgb 12.1 L (13.0-17.5) gm/dL Hct 37.9 L (39.0-53.0) % Neutrophils # 14.0 H (1.3-7.7) k/uL Lymphocytes # 0.5 L (1.0-4.8) k/uL APTT (22.0-30.0) sec Sodium 136 L (137-145) mmol/L Carbon Dioxide 19 L (22-30) mmol/L BUN 119 H* (9-20) mg/dL Creatinine 5.47 H (0.66-1.25) mg/dL Glucose 176 H (74-99) mg/dL POC Glucose (mg/dL) (70-110) mg/dL Phosphorus 5.9 H (2.5-4.5) mg/dL Total Protein 5.8 L (6.3-8.2) g/dL Albumin 3.3 L (3.5-5.0) g/dL Microbiology - Last 24 Hours (Table) 03/13/24 16:53 Blood Culture - Preliminary Blood 03/13/24 17:12 Gram Stain - Final Sputum Sputum Culture - Final Assessment and Plan Plan: Assessment: 1. Acute kidney injury secondary to ATN secondary to cardiorenal syndrome and hemodynamic instability. Creatinine 5.47 today. Elevated BUN due to acute kidney injury as well as steroids. Nonoliguric. No hydronephrosis noted on kidney ultrasound. Right kidney atrophic. 2. Chronic kidney disease stage IV secondary to diabetic kidney disease and nephrosclerosis with baseline creatinine 2.5-2.8. 3. Acute on chronic systolic CHF with ejection fraction of 35 to 40%. 4. Klebsiella UTI on antibiotics. 5. Urinary retention. Has Reynolds catheter. On Flomax. Urology following. 6. Volume overload. 7. Chronic kidney disease mineral bone disease maintained on calcitriol. 8. A-fib with RVR maintained on oral amiodarone and metoprolol. 9. Metabolic acidosis secondary to acute kidney injury. On oral bicarb. Better. 10. Hyperphosphatemia secondary to acute kidney injury. Plan: Lasix 40 mg IV once today. Encouraged oral intake. Add PhosLo with meals. Strict I's and O's. Continue to monitor renal function and urine output. With worsening renal function, volume overload, initiate renal replacement therapy. Consult vascular surgery for permacath placement. Plan for first treatment of hemodialysis tomorrow. Discussed with patient and his present at bedside. Agreeable.
--- NOTE | 2024-03-17 11:02 | P.PN ---
Subjective Progress Note Date: 03/17/24 HISTORY OF PRESENTING ILLNESS This is a pleasant 71-year-old with past medical history significant for COPD, CAD with prior stenting, diabetes mellitus type 2, hypertension, hyperlipidemia, chronic kidney disease. He follows in the office with Dr Ramos. He states that he has been having increased shortness of breath over last week and a half. He also has been having some upper abdominal achiness. Denies any specific chest pain or pressure. He has not really had an appetite over last few weeks. He does have chronic kidney disease with creatinine more than the 2.8 range however creatinine increased up before this admission. Denies any recent Motrin. No significant lightheadedness or dizziness. No recent changes to his medications. Chest x-ray performed which shows pulmonary vascular con gestion. Patient also has diffuse wheezes on exam. EKG showing sinus rhythm with frequent PACs. Troponin 0.05, 0.05. Lactic acid 2.2. ProBNP 4860 03/15 Patient seen and examined. Patient went into atrial flutter with RVR with initial heart rates in the 140s and initially looked like SVT and therefore adenosine was given with no improvement. Patient was started on Cardizem drip with underlying atrial flutter waves. He does not have any history of atrial flutter. We discussed anticoagulation for stroke prevention patient is agreeable. We will place patient on Lovenox in case he needs possible dialysis catheter placement. Denies any chest pain or pressure. He has been somewhat symptomatic with the atrial flutter with more shortness of breath. 03/16 Patient seen and examined. Patient states that his breathing is okay. No chest pain and no chest pressure. He does complain of cough. No palpitations. Plan is to start patient on hemodialysis on Monday. He is on a heparin drip which will be continued until after that. Blood pressure 117/56, heart rate 89, pulse ox 97% on room air. Repeat blood work reveals WBC 15.5, hemoglobin 11.5. Sodium 131, potassium 4.9, BUN 113, creatinine 4.79. Reviewed records from the office. Patient has not had an echocardiogram since 2016 which revealed EF of 50%. Patient has not been in the office since July 2018. Patient is also been maintained on IV amiodarone. He is off Cardizem drip. 03/17 Patient seen and examined. Blood pressure 128/63, heart rate 81, pulse ox 95% on 2 L nasal cannula. Patient remains in afib, controlled heart rate in the 80s- 90s. Repeat blood work reveals WBC 15.2, hemoglobin 12.1. Renal function has worsened and consult added for Dr. Marshall for dialysis catheter insertion. Yesterday, amiodarone was switched from IV to oral 400 mg twice daily. Patient is maintained on heparin drip until after catheter placement completed. Patient states he feels well today, no shortness of breath. PHYSICAL EXAMINATION Vital signs reviewed. CONSTITUTIONAL: No apparent distress. HEENT: Head is normocephalic. Pupils are equal, round. Sclerae anicteric. Mucous membranes of the mouth are moist. No JVD. No carotid bruit. CHEST EXAMINATION: Lungs are clear to auscultation. No chest wall tenderness is noted on palpation or with deep breathing. HEART EXAMINATION: Regular rate and rhythm. S1, S2 heard. No murmurs, gallops or rub. ABDOMEN: Soft, nontender. Positive bowel sounds. EXTREMITIES: 2+ peripheral pulses, no lower extremity edema and no calf tenderness. NEUROLOGIC EXAMINATION: Patient is awake, alert and oriented x3. ASSESSMENT Acute on chronic respiratory failure related to component of possible COPD exacerbation with audible wheezing plus component of heart failure/kidney failure Acute on chronic diastolic heart failure Acute on chronic kidney disease Elevated troponins, related to chronic kidney disease, not indicative of ischemia or injury Atypical abdominal pain CAD with prior history of stenting Hypertension Hyperlipidemia Diabetes mellitus type 2 History of COPD Decreased appetite may be related to progressive CKD Typical atrial flutter, new onset with RVR PLAN Acute kidney injury and a Reynolds was placed however Cr not improving and plan is to start hemodialysis. Avoid nephrotoxic agents. Echo showing LV EF 35-40% which may also be in part related to tachy induced Continue Toprol for better heart failure regimen. Monitor pulmonary status on Beta дмитрий Continue amiodarone oral 400 mg twice daily Continue patient on heparin drip until after catheter placement for HD Plan is for medical therapy to optimize heart failure regime as able to tolerate. Patient will be considered for outpatient ischemic workup. Nurse practitioner note has been reviewed, I agree with documented findings and plan of care. Patient was seen and examined. Objective - Vital Signs Vital signs: Vital Signs Temp 97.4 F L 03/17/24 04:00 Pulse 81 03/17/24 08:25 Resp 22 03/17/24 04:00 BP 128/63 03/17/24 04:00 Pulse Ox 95 03/17/24 08:06 FiO2 Intake & Output 03/16/24 03/17/24 03/17/24 18:59 06:59 18:59 Intake Total 1006 459.5 236 Output Total 800 900 Balance 206 -440.5 236 Intake: Intake, IV Titration 50 219.5 Amount Heparin Sod,Pork in 0.45% 219.5 NaCl 25,000 unit In 0.45 % NaCl 1 250ml.bag @ 9. 862 UNITS/KG/HR 10 mls/hr IV .Q24H [facility] Rx#: [id number] cefTRIAXone 1 gm In 50 Sodium Chloride 0.9% 50 ml @ 100 mls/hr IVPB Q24H [facility] Rx#:[id number] Oral 956 240 236 Output: Urine 800 900 Other: Voiding Method Indwelling Catheter Indwelling Catheter - Labs CBC & Chem 7: 03/17/24 06:39 03/17/24 06:39 Labs: Abnormal Lab Results - Last 24 Hours (Table) 03/16/24 03/16/24 03/16/24 Range/Units 11:39 14:06 16:26 WBC (3.8-10.6) k/uL RBC (4.30-5.90) m/uL Hgb (13.0-17.5) gm/dL Hct (39.0-53.0) % Neutrophils # (1.3-7.7) k/uL Lymphocytes # (1.0-4.8) k/uL APTT (22.0-30.0) sec POC Glucose (mg/dL) 415 H 382 H 326 H (70-110) mg/dL 03/16/24 03/17/24 03/17/24 Range/Units 20:26 06:11 06:39 WBC (3.8-10.6) k/uL RBC (4.30-5.90) m/uL Hgb (13.0-17.5) gm/dL Hct (39.0-53.0) % Neutrophils # (1.3-7.7) k/uL Lymphocytes # (1.0-4.8) k/uL APTT 47.5 H (22.0-30.0) sec POC Glucose (mg/dL) 301 H 194 H (70-110) mg/dL 03/17/24 Range/Units 06:39 WBC 15.2 H (3.8-10.6) k/uL RBC 4.06 L (4.30-5.90) m/uL Hgb 12.1 L (13.0-17.5) gm/dL Hct 37.9 L (39.0-53.0) % Neutrophils # 14.0 H (1.3-7.7) k/uL Lymphocytes # 0.5 L (1.0-4.8) k/uL APTT (22.0-30.0) sec POC Glucose (mg/dL) (70-110) mg/dL Microbiology - Last 24 Hours (Table) 03/13/24 16:53 Blood Culture - Preliminary Blood 03/13/24 17:12 Gram Stain - Final Sputum Sputum Culture - Final
[2024-03-17 11:19] LABS: Glucose,Whole Blood 272 mg/dL (70-110)
[2024-03-17] MEDS: CALCIUM ACETATE 667 MG TAB PO SCH (12:38)
[2024-03-17] MEDS: FUROSEMIDE 10 MG/ML 4 ML VIAL IV STA (12:38)
--- NOTE | 2024-03-17 12:57 | XR ---
EXAM: XR chest 1V portable CLINICAL INDICATION:Male, 78 years old with history of chf; MERGED WITH [facility] COMPARISON: 03/16/2024 TECHNIQUE: Chest single view. FINDINGS: Slight interval change in patient position. Mild asymmetric elevation of the hemidiaphragm may at jessie st in part be positional. Suspect mild volume loss/atelectasis in the right lung base. No consolidati on, effusion, or pneumothorax. Increased interstitial markings again noted. Heart is mildly enlarged. IMPRESSION: * Mild cardiomegaly and mild pulmonary vascular congestion, as before * Suspected mild right basilar atelectasis.
--- NOTE | 2024-03-17 13:20 | P.PN ---
Subjective Progress Note Date: 03/17/24 Principal diagnosis: Urinary Retention The patient has an indwelling Reynolds catheter for urinary retention. The urine is clear and he has no complaints. Objective - Vital Signs Vital signs: Vital Signs Temp 97.4 F L 03/17/24 04:00 Pulse 82 03/17/24 08:06 Resp 22 03/17/24 04:00 BP 128/63 03/17/24 04:00 Pulse Ox 95 03/17/24 08:06 FiO2 Intake & Output 03/16/24 03/17/24 03/17/24 18:59 06:59 18:59 Intake Total 1006 459.5 Output Total 800 900 Balance 206 -440.5 Intake: Intake, IV Titration 50 219.5 Amount Heparin Sod,Pork in 0.45% 219.5 NaCl 25,000 unit In 0.45 % NaCl 1 250ml.bag @ 9. 862 UNITS/KG/HR 10 mls/hr IV .Q24H [facility] Rx#: [id number] cefTRIAXone 1 gm In 50 Sodium Chloride 0.9% 50 ml @ 100 mls/hr IVPB Q24H [facility] Rx#:[id number] Oral 956 240 Output: Urine 800 900 Other: Voiding Method Indwelling Catheter Indwelling Catheter - Constitutional General appearance: Present: average body habitus, cooperative, no acute distress - Psychiatric Psychiatric: Present: A&O x's 3 - Labs CBC & Chem 7: 03/17/24 06:39 03/17/24 06:39 Labs: Abnormal Lab Results - Last 24 Hours (Table) 03/16/24 03/16/24 03/16/24 Range/Units 11:39 14:06 16:26 WBC (3.8-10.6) k/uL RBC (4.30-5.90) m/uL Hgb (13.0-17.5) gm/dL Hct (39.0-53.0) % Neutrophils # (1.3-7.7) k/uL Lymphocytes # (1.0-4.8) k/uL APTT (22.0-30.0) sec POC Glucose (mg/dL) 415 H 382 H 326 H (70-110) mg/dL 03/16/24 03/17/24 03/17/24 Range/Units 20:26 06:11 06:39 WBC (3.8-10.6) k/uL RBC (4.30-5.90) m/uL Hgb (13.0-17.5) gm/dL Hct (39.0-53.0) % Neutrophils # (1.3-7.7) k/uL Lymphocytes # (1.0-4.8) k/uL APTT 47.5 H (22.0-30.0) sec POC Glucose (mg/dL) 301 H 194 H (70-110) mg/dL 03/17/24 Range/Units 06:39 WBC 15.2 H (3.8-10.6) k/uL RBC 4.06 L (4.30-5.90) m/uL Hgb 12.1 L (13.0-17.5) gm/dL Hct 37.9 L (39.0-53.0) % Neutrophils # 14.0 H (1.3-7.7) k/uL Lymphocytes # 0.5 L (1.0-4.8) k/uL APTT (22.0-30.0) sec POC Glucose (mg/dL) (70-110) mg/dL Microbiology - Last 24 Hours (Table) 03/13/24 16:53 Blood Culture - Preliminary Blood 03/13/24 17:12 Gram Stain - Final Sputum Sputum Culture - Final Assessment and Plan Assessment: The urine culture shows greater than 100,000 Klebsiella pneumoniae species, sensitive to ceftriaxone. (1) Retention of urine, unspecified Current Visit: Yes Status: Acute Code(s): R33.9 - RETENTION OF URINE, UNSPECIFIED SNOMED Code(s): 537502819 (2) UTI (urinary tract infection) Current Visit: Yes Status: Acute Code(s): N39.0 - URINARY TRACT INFECTION, SITE NOT SPECIFIED SNOMED Code(s): 70477805 Plan: Renal function is poor and dialysis is being considered. I would suggest the catheter remain in place to optimize renal function at this time. Continue ceftriaxone.
[2024-03-17 16:28] LABS: Glucose,Whole Blood 278 mg/dL (70-110)
[2024-03-17 20:52] LABS: Glucose,Whole Blood 291 mg/dL (70-110)
[2024-03-17] MEDS: INSULIN DETEMIR (LEVEMIR) 100 UNIT/ML SYR SQ SCH (21:18)
--- NOTE | 2024-03-17 21:18 | P.GSCN ---
History of Present Illness History of present illness: 78-year-old gentleman consulted for placement of dialysis catheter. Patient kidney functions are deteriorating BUN is 119, creatinine 5.47 patient is on heparin. 2 in the morning and patient will be scheduled for dialysis catheter placement in the morning keep the patient n.p.o. at midnight patient has history of coronary artery disease postcoronary artery stent placed in the past graft neck is supple no bruit appreciated Chest few crackles the lung bases first and second sound present Abdomen is protuberant no peritoneal signs noted Vascular brachial radial femoral pulses are present Plan is placement of a dialysis catheter risk and complication discussed Past Medical History Past Medical History: Coronary Artery Disease (CAD), COPD, Diabetes Mellitus, Hyperlipidemia, Hypertension, Myocardial Infarction (CT), Pneumonia, Sleep Apnea /CPAP/BIPAP Additional Past Medical History / Comment(s): skin cancer from his scalp that has been removed Last Myocardial Infarction Date:: 2011 History of Any Multi-Drug Resistant Organisms: None Reported Past Surgical History: Cholecystectomy, Heart Catheterization With Stent, Hernia Repair Additional Past Surgical History / Comment(s): UMBILICAL HERNIA REPAIR.VASECTOMY , colonoscopy, skin ca on scalp removed. Past Anesthesia/Blood Transfusion Reactions: No Reported Reaction Date of Last Stent Placement:: 2011 Past Psychological History: No Psychological Hx Reported Additional Psychological History / Comment(s): lives with his . has nebulizer, glucometer and cpap Smoking Status: Never smoker Past Alcohol Use History: None Reported Additional Past Alcohol Use History / Comment(s): Patient is a lifelong nonsmoker. He worked [employer]. Past Drug Use History: None Reported - Past Family History Father Family Medical History: CVA/TIA, Hypertension, Myocardial Infarction (CT) Additional Family Medical History / Comment(s): AT AGE 73-CT Mother Family Medical History: Renal Disease Additional Family Medical History / Comment(s): AT AGE 56 COMPLICATIONS FROM DIABETES Medications and Allergies Home Medications Medication Instructions Recorded Confirmed Type Furosemide [Lasix] 40 mg PO BID-W/MEALS 05/03/18 03/13/24 History Aspirin EC [Ecotrin] 325 mg PO DAILY 03/13/24 03/13/24 History Dapagliflozin Propanediol [Farxiga] 10 mg PO DAILY 03/13/24 03/13/24 History Ferrous Sulfate [Feosol] 325 mg PO DAILY 03/13/24 03/13/24 History Insulin Glargine,Hum.rec.anlog 60 units SQ DAILY 03/13/24 03/13/24 History [Lantus Solostar Pen] Tamsulosin HCl [Flomax] 0.4 mg PO BID-W/MEALS 03/13/24 03/13/24 History Verapamil Sr [Isoptin Sr] 120 mg PO BID-W/MEALS 03/13/24 03/13/24 History calcitrioL 0.25 mcg PO DAILY 03/13/24 03/13/24 History glipiZIDE [Glucotrol] 5 mg PO AC-BID 03/13/24 03/13/24 History lisinopriL [Zestril] 2.5 mg PO DAILY 03/13/24 03/13/24 History Allergies Allergy/AdvReac Type Severity Reaction Status Date / Time No Known Allergies Allergy Verified 03/13/24 13:26 Surgical - Exam Vital Signs Temp Pulse Resp BP Pulse Ox 98.3 F 54 L 18 106/67 95 03/13/24 11:23 03/13/24 11:23 03/13/24 11:23 03/13/24 11:23 03/13/24 11:23 Results - Labs 03/17/24 06:39 03/17/24 06:39 Abnormal Lab Results - Last 24 Hours (Table) 03/17/24 03/17/24 03/17/24 Range/Units 06:11 06:39 06:39 WBC (3.8-10.6) k/uL RBC (4.30-5.90) m/uL Hgb (13.0-17.5) gm/dL Hct (39.0-53.0) % Neutrophils # (1.3-7.7) k/uL Lymphocytes # (1.0-4.8) k/uL APTT 47.5 H (22.0-30.0) sec Sodium 136 L (137-145) mmol/L Carbon Dioxide 19 L (22-30) mmol/L BUN 119 H* (9-20) mg/dL Creatinine 5.47 H (0.66-1.25) mg/dL Glucose 176 H (74-99) mg/dL POC Glucose (mg/dL) 194 H (70-110) mg/dL Phosphorus 5.9 H (2.5-4.5) mg/dL Total Protein 5.8 L (6.3-8.2) g/dL Albumin 3.3 L (3.5-5.0) g/dL 03/17/24 03/17/24 03/17/24 Range/Units 06:39 11:18 16:27 WBC 15.2 H (3.8-10.6) k/uL RBC 4.06 L (4.30-5.90) m/uL Hgb 12.1 L (13.0-17.5) gm/dL Hct 37.9 L (39.0-53.0) % Neutrophils # 14.0 H (1.3-7.7) k/uL Lymphocytes # 0.5 L (1.0-4.8) k/uL APTT (22.0-30.0) sec Sodium (137-145) mmol/L Carbon Dioxide (22-30) mmol/L BUN (9-20) mg/dL Creatinine (0.66-1.25) mg/dL Glucose (74-99) mg/dL POC Glucose (mg/dL) 272 H 278 H (70-110) mg/dL Phosphorus (2.5-4.5) mg/dL Total Protein (6.3-8.2) g/dL Albumin (3.5-5.0) g/dL 03/17/24 Range/Units 20:50 WBC (3.8-10.6) k/uL RBC (4.30-5.90) m/uL Hgb (13.0-17.5) gm/dL Hct (39.0-53.0) % Neutrophils # (1.3-7.7) k/uL Lymphocytes # (1.0-4.8) k/uL APTT (22.0-30.0) sec Sodium (137-145) mmol/L Carbon Dioxide (22-30) mmol/L BUN (9-20) mg/dL Creatinine (0.66-1.25) mg/dL Glucose (74-99) mg/dL POC Glucose (mg/dL) 291 H (70-110) mg/dL Phosphorus (2.5-4.5) mg/dL Total Protein (6.3-8.2) g/dL Albumin (3.5-5.0) g/dL Microbiology - Last 24 Hours (Table) 03/13/24 16:53 Blood Culture - Preliminary Blood Diabetes panel 03/17/24 Range/Units 06:39 Sodium 136 L (137-145) mmol/L Potassium 4.5 (3.5-5.1) mmol/L Chloride 105 (98-107) mmol/L Carbon Dioxide 19 L (22-30) mmol/L BUN 119 H* (9-20) mg/dL Creatinine 5.47 H (0.66-1.25) mg/dL Glucose 176 H (74-99) mg/dL Calcium 8.6 (8.4-10.2) mg/dL AST 25 (17-59) U/L ALT 29 (4-49) U/L Alkaline Phosphatase 62 (38-126) U/L Total Protein 5.8 L (6.3-8.2) g/dL Albumin 3.3 L (3.5-5.0) g/dL Calcium panel 03/17/24 Range/Units 06:39 Calcium 8.6 (8.4-10.2) mg/dL Phosphorus 5.9 H (2.5-4.5) mg/dL Albumin 3.3 L (3.5-5.0) g/dL Pituitary panel 03/17/24 Range/Units 06:39 Sodium 136 L (137-145) mmol/L Potassium 4.5 (3.5-5.1) mmol/L Chloride 105 (98-107) mmol/L Carbon Dioxide 19 L (22-30) mmol/L BUN 119 H* (9-20) mg/dL Creatinine 5.47 H (0.66-1.25) mg/dL Glucose 176 H (74-99) mg/dL Calcium 8.6 (8.4-10.2) mg/dL Adrenal panel 03/17/24 Range/Units 06:39 Sodium 136 L (137-145) mmol/L Potassium 4.5 (3.5-5.1) mmol/L Chloride 105 (98-107) mmol/L Carbon Dioxide 19 L (22-30) mmol/L BUN 119 H* (9-20) mg/dL Creatinine 5.47 H (0.66-1.25) mg/dL Glucose 176 H (74-99) mg/dL Calcium 8.6 (8.4-10.2) mg/dL Total Bilirubin 0.3 (0.2-1.3) mg/dL AST 25 (17-59) U/L ALT 29 (4-49) U/L Alkaline Phosphatase 62 (38-126) U/L Total Protein 5.8 L (6.3-8.2) g/dL Albumin 3.3 L (3.5-5.0) g/dL
--- NOTE | 2024-03-18 02:49 | PN ---
PROGRESS NOTE DATE OF SERVICE: 03/17/2024 This 78-year-old gentleman admitted with multiple medical problems including shortness of breath probably due to combination of COPD and CHF, also had worsening renal failure. Nephrology is following the patient closely for possible hemodialysis. Chest x-ray showed some prominent hilum and some congestion also. Output is urine output noted. PAST MEDICAL HISTORY: Reviewed. REVIEW OF SYSTEMS: 14-point review is negative. CURRENT MEDICATIONS: Reviewed include DuoNeb, dose and rest of medications noted. PHYSICAL EXAMINATION: VITAL SIGNS: Pulse is 82, blood pressure is 120/60, respirations 22. HEENT: Conjunctivae normal. CARDIOVASCULAR: S1, S2. RESPIRATIONS: Few scattered rhonchi. ABDOMEN: Soft. LABORATORY DATA: Sodium 136, creatinine is 5.47. ASSESSMENT: 1. Shortness of breath, possibly combination of chronic obstructive pulmonary disease exacerbation as well as congestive heart failure, acute exacerbation with acute on chronic systolic dysfunction, ejection fraction 35% to 40%. 2. Acute on chronic renal failure. 3. Diabetes mellitus, type 2, uncontrolled with hyperglycemia. 4. Chronic kidney disease, stage 3, baseline. 5. Elevated plasma, lactic acid. 6. Troponin 0.05, indeterminate. 7. History of coronary artery disease. 8. Multiple complex medical issues. RECOMMENDATIONS: I recommend to continue current management. Monitor creatinine closely. Monitor output closely. Chest x-ray was reviewed. Closely follow with Nephrology regarding initiation of renal replacement treatment. The patient is nonoliguric. Vascular Surgery has been consulted. Prognosis extremely guarded because of multiple complex medical issues. Further recommendations to follow. See orders for details. The blood sugars are elevated. I would increase the Lantus to 35 subcu b.i.d. and continue to monitor. MMODL / IJN: [id number] / MTDD
[2024-03-18 06:17] LABS: Glucose,Whole Blood 236 mg/dL (70-110)
[2024-03-18] MEDS: SODIUM CHLORIDE 0.9% 1,000 ML IV ONE (06:26)
[2024-03-18] MEDS: MIDAZOLAM 2 MG/2 ML VIAL IVP ONE (06:37)
[2024-03-18] MEDS: LIDOCAINE 1% INJ 10MG/ML (20 ML MDV) SQ ONE ×2 (06:38→06:53)
[2024-03-18] MEDS: fentaNYL (PF) 50 MCG/1 ML VIAL IVP ONE (06:53)
--- NOTE | 2024-03-18 07:30 | IR ---
EXAMINATION TYPE: IR cvc insert central tunneled DATE OF EXAM: 03/18/2024 COMPARISON: NONE HISTORY: Fluoroscopy time. Fluoroscopy was provided to the referring clinician.
[2024-03-18 07:46] LABS: Basophils % (A) 0 %; Eosinophils % (A) 0 %; HCT 39.4 % (39.0-53.0); HGB 12.3 gm/dL (13.0-17.5); Lymphocytes # (A) 0.4 k/uL (1.0-4.8); Lymphocytes % (A) 2 %; MCHC 31.2 g/dL (31.0-37.0); MCV 93.1 fL (80.0-100.0); Mean Platelet Volume 7.6; Monocytes # (A) 0.7 k/uL (0-1.0); Monocytes % (A) 4 %; Neutrophils # (A) 15.5 k/uL (1.3-7.7); Neutrophils % (A) 93 %; Platelet Count 215 k/uL (150-450); RBC 4.23 m/uL (4.30-5.90); RDW 15.1 % (11.5-15.5); WBC 16.6 k/uL (3.8-10.6)
[2024-03-18 07:55] LABS: African American GFR (CKD) 11 (>60 ml/min/1.73 sqM); Anion Gap 12 mmol/L; Calcium 8.7 mg/dL (8.4-10.2); Carbon Dioxide 19 mmol/L (22-30); Chloride 106 mmol/L (98-107); Glucose 215 mg/dL (74-99); Magnesium 1.9 mg/dL (1.6-2.3); Non-African American GFR(CKD) 10 (>60 ml/min/1.73 sqM); Potassium 4.7 mmol/L (3.5-5.1); Sodium 137 mmol/L (137-145)
[2024-03-18 08:02] LABS: Blood Urea Nitrogen 137 mg/dL (9-20)
[2024-03-18] MEDS: ACETAMINOPHEN TAB 325 MG TAB PO PRN (09:55)
--- NOTE | 2024-03-18 11:10 | P.PN ---
Subjective Patient is seen in follow-up for acute kidney injury on chronic kidney disease. No improvement in renal function. Did receive IV Lasix yesterday. Nonoliguric. Has Reynolds catheter. Denies chest pain or shortness of breath. Permacath placed this morning. Hemodynamically stable. Vital signs are stable. General: No acute distress. HEENT: Head exam is unremarkable. LUNGS: Scattered wheezing. HEART: Rate and Rhythm are regular. ABDOMEN: Nontender. EXTREMITITES: No edema. Objective - Vital Signs Vital signs: Vital Signs Temp 97.8 F 03/18/24 08:10 Pulse 95 03/18/24 08:32 Resp 18 03/18/24 08:10 BP 107/69 03/18/24 08:10 Pulse Ox 99 03/18/24 08:10 FiO2 Intake & Output 03/17/24 03/18/24 03/18/24 18:59 06:59 18:59 Intake Total 472 290 540 Output Total 1500 1000 Balance -1028 -710 540 Intake: IV 50 Oral 472 240 540 Output: Urine 1500 1000 Other: Voiding Method Indwelling Catheter Indwelling Catheter Indwelling Catheter - Labs CBC & Chem 7: 03/18/24 07:24 03/18/24 07:24 Labs: Abnormal Lab Results - Last 24 Hours (Table) 03/17/24 03/17/24 03/17/24 Range/Units 11:18 16:27 20:50 WBC (3.8-10.6) k/uL RBC (4.30-5.90) m/uL Hgb (13.0-17.5) gm/dL Neutrophils # (1.3-7.7) k/uL Lymphocytes # (1.0-4.8) k/uL Carbon Dioxide (22-30) mmol/L BUN (9-20) mg/dL Creatinine (0.66-1.25) mg/dL Glucose (74-99) mg/dL POC Glucose (mg/dL) 272 H 278 H 291 H (70-110) mg/dL 03/18/24 03/18/24 03/18/24 Range/Units 06:16 07: 07:24 WBC 16.6 H (3.8-10.6) k/uL RBC 4.23 L (4.30-5.90) m/uL Hgb 12.3 L (13.0-17.5) gm/dL Neutrophils # 15.5 H (1.3-7.7) k/uL Lymphocytes # 0.4 L (1.0-4.8) k/uL Carbon Dioxide 19 L (22-30) mmol/L BUN 137 H* (9-20) mg/dL Creatinine 5.11 H (0.66-1.25) mg/dL Glucose 215 H (74-99) mg/dL POC Glucose (mg/dL) 236 H (70-110) mg/dL Assessment and Plan Plan: Assessment: 1. Acute kidney injury secondary to ATN secondary to cardiorenal syndrome and hemodynamic instability. Creatinine 5.11 today. Elevated BUN due to acute kidney injury as well as steroids. Nonoliguric. No hydronephrosis noted on kidney ultrasound. Right kidney atrophic. 2. Chronic kidney disease stage IV secondary to diabetic kidney disease and nephrosclerosis with baseline creatinine 2.5-2.8. 3. Acute on chronic systolic CHF with ejection fraction of 35 to 40%. 4. Klebsiella UTI on antibiotics. 5. Urinary retention. Has Reynolds catheter. On Flomax. Urology following. 6. Volume overload. 7. Chronic kidney disease mineral bone disease maintained on calcitriol. 8. A-fib with RVR maintained on oral amiodarone and metoprolol. 9. Metabolic acidosis secondary to acute kidney injury. On oral bicarb. Stable. 10. Hyperphosphatemia secondary to acute kidney injury. On PhosLo. Phosphorus level 5.9 dated March 17, 2024. Plan: Plan for first treatment of hemodialysis today and second treatment tomorrow. Encouraged oral intake. Strict I's and O's. Continue to monitor renal function and urine output. claims account manager to set up outpatient hemodialysis.
[2024-03-18 12:17] LABS: Glucose,Whole Blood 311 mg/dL (70-110)
--- NOTE | 2024-03-18 12:48 | P.PN ---
Subjective Progress Note Date: 03/18/24 HISTORY OF PRESENTING ILLNESS This is a pleasant 71-year-old with past medical history significant for COPD, CAD with prior stenting, diabetes mellitus type 2, hypertension, hyperlipidemia, chronic kidney disease. He follows in the office with Dr Ramos. He states that he has been having increased shortness of breath over last week and a half. He also has been having some upper abdominal achiness. Denies any specific chest pain or pressure. He has not really had an appetite over last few weeks. He does have chronic kidney disease with creatinine more than the 2.8 range however creatinine increased up before this admission. Denies any recent Motrin. No significant lightheadedness or dizziness. No recent changes to his medications. Chest x-ray performed which shows pulmonary vascular con gestion. Patient also has diffuse wheezes on exam. EKG showing sinus rhythm with frequent PACs. Troponin 0.05, 0.05. Lactic acid 2.2. ProBNP 4860 03/15 Patient seen and examined. Patient went into atrial flutter with RVR with initial heart rates in the 140s and initially looked like SVT and therefore adenosine was given with no improvement. Patient was started on Cardizem drip with underlying atrial flutter waves. He does not have any history of atrial flutter. We discussed anticoagulation for stroke prevention patient is agreeable. We will place patient on Lovenox in case he needs possible dialysis catheter placement. Denies any chest pain or pressure. He has been somewhat symptomatic with the atrial flutter with more shortness of breath. 03/16 Patient seen and examined. Patient states that his breathing is okay. No chest pain and no chest pressure. He does complain of cough. No palpitations. Plan is to start patient on hemodialysis on Monday. He is on a heparin drip which will be continued until after that. Blood pressure 117/56, heart rate 89, pulse ox 97% on room air. Repeat blood work reveals WBC 15.5, hemoglobin 11.5. Sodium 131, potassium 4.9, BUN 113, creatinine 4.79. Reviewed records from the office. Patient has not had an echocardiogram since 2016 which revealed EF of 50%. Patient has not been in the office since July 2018. Patient is also been maintained on IV amiodarone. He is off Cardizem drip. 03/17 Patient seen and examined. Blood pressure 128/63, heart rate 81, pulse ox 95% on 2 L nasal cannula. Patient remains in afib, controlled heart rate in the 80s- 90s. Repeat blood work reveals WBC 15.2, hemoglobin 12.1. Renal function has worsened and consult added for Dr. Marshall for dialysis catheter insertion. Yesterday, amiodarone was switched from IV to oral 400 mg twice daily. Patient is maintained on heparin drip until after catheter placement completed. Patient states he feels well today, no shortness of breath. 03/18 Patient is going from the room for insertion of dialysis catheter with plan to start hemodialysis today. Blood pressure 144/59, heart rate 84, pulse ox 98% on room air. Patient is maintained on heparin drip. PHYSICAL EXAMINATION Vital signs reviewed. CONSTITUTIONAL: No apparent distress. HEENT: Head is normocephalic. Pupils are equal, round. Sclerae anicteric. Mucous membranes of the mouth are moist. No JVD. No carotid bruit. CHEST EXAMINATION: Lungs are clear to auscultation. No chest wall tenderness is noted on palpation or with deep breathing. HEART EXAMINATION: Regular rate and rhythm. S1, S2 heard. No murmurs, gallops or rub. ABDOMEN: Soft, nontender. Positive bowel sounds. EXTREMITIES: 2+ peripheral pulses, no lower extremity edema and no calf tenderness. NEUROLOGIC EXAMINATION: Patient is awake, alert and oriented x3. ASSESSMENT Acute on chronic respiratory failure related to component of possible COPD exacerbation with audible wheezing plus component of heart failure/kidney failure Acute on chronic diastolic heart failure Acute on chronic kidney disease Elevated troponins, related to chronic kidney disease, not indicative of ischemia or injury Atypical abdominal pain CAD with prior history of stenting Hypertension Hyperlipidemia Diabetes mellitus type 2 History of COPD Decreased appetite may be related to progressive CKD Typical atrial flutter, new onset with RVR PLAN Patient scheduled today for catheter placement and plan for HD Echo showing LV EF 35-40% which may also be in part related to tachy induced Continue Toprol for better heart failure regimen. Monitor pulmonary status on Beta дмитрий Continue amiodarone oral 400 mg twice daily Continue patient on heparin drip until after catheter placement for HD Plan is for medical therapy to optimize heart failure regime as able to tolerate. Patient will be considered for outpatient ischemic workup. Nurse practitioner note has been reviewed, I agree with documented findings and plan of care. Patient was seen and examined. Objective - Vital Signs Vital signs: Vital Signs Temp 97.9 F 03/18/24 11:56 Pulse 131 H 03/18/24 11:56 Resp 18 03/18/24 11:56 BP 144/59 03/18/24 11:56 Pulse Ox 98 03/18/24 11:56 FiO2 Intake & Output 03/17/24 03/18/24 03/18/24 18:59 06:59 18:59 Intake Total 472 290 540 Output Total 1500 1000 Balance -1028 -710 540 Intake: IV 50 Oral 472 240 540 Output: Urine 1500 1000 Other: Voiding Method Indwelling Catheter Indwelling Catheter Indwelling Catheter - Labs CBC & Chem 7: 03/18/24 07:24 03/18/24 07:24 Labs: Abnormal Lab Results - Last 24 Hours (Table) 03/17/24 03/17/24 03/18/24 Range/Units 16:27 20:50 06:16 WBC (3.8-10.6) k/uL RBC (4.30-5.90) m/uL Hgb (13.0-17.5) gm/dL Neutrophils # (1.3-7.7) k/uL Lymphocytes # (1.0-4.8) k/uL Carbon Dioxide (22-30) mmol/L BUN (9-20) mg/dL Creatinine (0.66-1.25) mg/dL Glucose (74-99) mg/dL POC Glucose (mg/dL) 278 H 291 H 236 H (70-110) mg/dL 03/18/24 03/18/24 03/18/24 Range/Units 07:24 07:24 12:16 WBC 16.6 H (3.8-10.6) k/uL RBC 4.23 L (4.30-5.90) m/uL Hgb 12.3 L (13.0-17.5) gm/dL Neutrophils # 15.5 H (1.3-7.7) k/uL Lymphocytes # 0.4 L (1.0-4.8) k/uL Carbon Dioxide 19 L (22-30) mmol/L BUN 137 H* (9-20) mg/dL Creatinine 5.11 H (0.66-1.25) mg/dL Glucose 215 H (74-99) mg/dL POC Glucose (mg/dL) 311 H (70-110) mg/dL
[2024-03-18 14:21] LABS: T4, Free (Free Thyroxine) 0.95 ng/dL (0.78-2.19)
[2024-03-18 16:24] LABS: Glucose,Whole Blood 517 mg/dL (70-110)
[2024-03-18 20:11] LABS: Glucose,Whole Blood 286 mg/dL (70-110)
--- NOTE | 2024-03-18 21:17 | P.PN ---
Subjective Progress Note Date: 03/18/24 Patient is an 78-year-old white male with past medical history significant for COPD, obstructive sleep apnea, coronary artery disease, hypertension, hyperlipidemia, chronic kidney disease, BPH and previous TURP. His primary care provider is Dr. Isbell. Did follow with Dr. Delacruz in the pulmonary office in the past, but has not been back in some time. He is known to have moderate COPD. Patient presented to emergency room yesterday complaining of about 4 weeks of worsening shortness of breath. Accompanied by chest tightness, wheezing, cough with green phlegm. Chest x-ray on arrival showed low lung volumes and general hazy appearance, atelectasis versus pulmonary edema. Also, noted to be more confused at home. ABG was drawn in the emergency department, with a PaO2 of 93, pCO2 of 37, pH of 7.36. He is also has had issues with frequent urination and incomplete voiding. He has history of urinary retention and underwent previous TURP in the past. Denies any burning or dysuria. Denies suprapubic pain. Denies fevers. Urinalysis positive for leukocyte esterase and bacteria. CBC: WBC count 12.1, hemoglobin 12.8, hematocrit 40.5, platelets 274. CMP: Sodium 143, potassium 4.2, chloride 110, serum bicarb 20, BUN 87, creatinine 4.44, glucose 72. Does have an indwelling urinary catheter. lactic 2. LFTs not elevated. Troponin 0.047. NT proBNP 4860. Negative for influenza, RSV, COVID. He is currently sitting up at the edge of the bed, reportedly just got up to use the bathroom. Seems to be oriented. He is on 2 L/min nasal cannula. SpO2 is 98%. He has audible wheezing. Vital signs are stable. The patient is seen today March 15, 2024 in follow-up on the selective care unit. He is currently sitting up in bed. Awake and alert in no acute distress. He is maintaining good O2 saturations in the 90s on 3 L/min per nasal cannula. No IV fluids. He is feeling better today compared to yesterday. Still somewhat bronchospastic and wheezing. He is continued on DuoNeb inhalations, Pulmicort and Perforomist inhalations, IV Solu-Medrol. He is on antibiotics in the form of ceftriaxone. Currently on a Cardizem drip at 10 mg/h. He did develop atrial fibrillation with a rapid ventricular response today. Urine culture positive for gram-negative bacilli. Blood culture revealing no growth. Sputum culture revealing no growth. White count 16.7. Hemoglobin 11.7. Platelets 212. Sodium 134. Potassium 5.0. Bicarb 20. BUN 94. Creatinine 4.88. Glucose 300. Procalcitonin 0.26. The patient is seen today March 16, 2024 in follow-up on the selective care unit. He is currently resting in bed. Awake and alert in no acute distress. He is maintaining O2 saturations in the 90s on room air. He is continued on a heparin drip. Continue on amiodarone drip at 0.5 mg/min. He is continued on DuoNeb inhalations, Pulmicort and Perforomist inhalations, Solu-Medrol at 40 mg every 8 hours. The patient is still somewhat bronchospastic and wheezing. He remains in atrial fibrillation with a better controlled ventricular response. He is on antibiotics in the form of ceftriaxone. Urine culture was positive for Klebsiella pneumoniae. Sputum culture revealed no growth. Blood cultures revealed no growth. White count 15.5. Hemoglobin 11.5. Platelets 212. Sodium 131. Potassium 4.9. Bicarb 17. BUN 113. Creatinine 4.79. Glucose 303. He has been initiated on sodium bicarb tablets. Current urine output 450 mL. The patient is seen today March 17, 2024 in follow-up on the selective care unit. He is currently resting comfortably in bed. Awake and alert in no acute distress. Maintaining good O2 saturations in the 90s on 2 L/min per nasal cannula. He remains on a heparin drip. He remains on DuoNeb inhalations, Pulmicort and Perforomist inhalations, Solu-Medrol. Antibiotics in the form of ceftriaxone. White count 15.2. Hemoglobin 12.1. Platelets 200,000. Sodium 136. Potassium 4.5. Bicarb 19. BUN 119. Creatinine 5.47. Glucose 176. Ur ine culture was positive for Klebsiella pneumoniae. Blood cultures revealed no growth. Sputum culture revealed no growth. Nephrology is following for possible renal replacement therapy. Chest x-ray reveals mild cardiomegaly and mild pulmonary vascular congestion. On 03/18/2024, the patient is being seen for a follow-up. The patient is known to have COPD, obstructive sleep apnea, coronary disease, hypertension hyperlipidemia chronic kidney disease. The patient also suffers from BPH and he has undergone previous TURP. The patient is not currently undergoing hemodialysis. He is on room air oxygen. Main complaint is some limited residual cough. Patient also being treated for an underlying urine tract infection with Klebsiella and the patient is currently on IV Rocephin. No other specific complaints. White cell count of 16.6 with a hemoglobin 12.8 and a platelet count of 215. The BUN levels at 137 with a potassium level of 5.1 and a sodium level is at 137 and a potassium level is at 4.1. Free T4 is at 0.9 with a TSH of 0.38. The patient remains on DuoNeb updrafts. The patient is on Levemir insulin. The patient is on oral bicarb. The urine output remains active and the patient is producing adequate amount of urine output and remains in negative fluid balance. Nephrology is on the case for now. Remains on bronchodilators. Remains on steroids. The chest x-ray that was done on 03/17/2024 showed mild cardiomegaly and pulm vessel congestion and some atelectatic change in lung base bilaterally. Objective - Vital Signs Vital signs: Vital Signs Temp 97.9 F 03/18/24 11:56 Pulse 131 H 03/18/24 11:56 Resp 18 03/18/24 11:56 BP 144/59 03/18/24 11:56 Pulse Ox 98 03/18/24 11:56 FiO2 Intake & Output 03/17/24 03/18/24 03/18/24 18:59 06:59 18:59 Intake Total 472 290 540 Output Total 1500 1000 Balance -1028 -710 540 Intake: IV 50 Oral 472 240 540 Output: Urine 1500 1000 Other: Voiding Method Indwelling Catheter Indwelling Catheter Indwelling Catheter - Exam GENERAL EXAM: Alert, pleasant 78-year-old male, on room air oxygen, comfortable in no acute distress. HEAD: Normocephalic and atraumatic EYES: Normal reaction of pupils, equal size. NOSE: Clear with pink turbinates. THROAT: No erythema or exudates. NECK: No masses, no JVD. CHEST: No chest wall deformity. LUNGS: Equal air entry with bilateral expiratory wheezes. CVS: S1 and S2 normal with no audible murmur, regular rhythm. No extra heart sounds ABDOMEN: No hepatosplenomegaly, active bowel sounds, no guarding or rigidity. SPINE: No scoliosis or deformity SKIN: No rashes CENTRAL NERVOUS SYSTEM: No focal deficits, tone is normal in all 4 extremities. EXTREMITIES: There is no peripheral edema, clubbing, or cyanosis. Peripheral pulses are intact. - Labs CBC & Chem 7: 03/18/24 07:24 03/18/24 07:24 Labs: Abnormal Lab Results - Last 24 Hours (Table) 03/17/24 03/17/24 03/18/24 Range/Units 16:27 20:50 06:16 WBC (3.8-10.6) k/uL RBC (4.30-5.90) m/uL Hgb (13.0-17.5) gm/dL Neutrophils # (1.3-7.7) k/uL Lymphocytes # (1.0-4.8) k/uL Carbon Dioxide (22-30) mmol/L BUN (9-20) mg/dL Creatinine (0.66-1.25) mg/dL Glucose (74-99) mg/dL POC Glucose (mg/dL) 278 H 291 H 236 H (70-110) mg/dL TSH (0.465-4.680) mIU/L 03/18/24 03/18/24 03/18/24 Range/Units 07:24 07:24 07:24 WBC 16.6 H (3.8-10.6) k/uL RBC 4.23 L (4.30-5.90) m/uL Hgb 12.3 L (13.0-17.5) gm/dL Neutrophils # 15.5 H (1.3-7.7) k/uL Lymphocytes # 0.4 L (1.0-4.8) k/uL Carbon Dioxide 19 L (22-30) mmol/L BUN 137 H* (9-20) mg/dL Creatinine 5.11 H (0.66-1.25) mg/dL Glucose 215 H (74-99) mg/dL POC Glucose (mg/dL) (70-110) mg/dL TSH 0.384 L (0.465-4.680) mIU/L 03/18/24 Range/Units 12:16 WBC (3.8-10.6) k/uL RBC (4.30-5.90) m/uL Hgb (13.0-17.5) gm/dL Neutrophils # (1.3-7.7) k/uL Lymphocytes # (1.0-4.8) k/uL Carbon Dioxide (22-30) mmol/L BUN (9-20) mg/dL Creatinine (0.66-1.25) mg/dL Glucose (74-99) mg/dL POC Glucose (mg/dL) 311 H (70-110) mg/dL TSH (0.465-4.680) mIU/L Assessment and Plan Plan: Acute hypoxemic respiratory failure, recovered and on room air, likely secondary to acute COPD exacerbation and a systolic CHF exacerbation. Favor CHF with fluid overload in the setting of an acute on chronic kidney failure. The patient is currently undergoing hemodialysis. The chest x-ray on arrival showed low lung volumes and general hazy appearance, atelectasis versus pulmonary edema. NT proBNP was elevated at 4860. Negative for influenza, RSV, COVID. Noted the patient is currently on room air oxygen. Atrial fibrillation with a rapid ventricular response, and the most recent EKG from today is consistent with flutter. The patient is on amiodarone. Anticoagulation as per cardiology. Acute exacerbation of chronic systolic congestive heart failure. Ejection fraction 35 to 40%. Global hypokinesis Acute on chronic kidney disease, possibly postobstructive secondary to retention, patient has indwelling urinary catheter placed, producing adequate amount of urine output and the patient is also being dialyzed. Nephrology on the case. Urinary tract infection secondary to Klebsiella pneumoniae, currently on ceftriaxone Elevated troponin, possibly supply/demand related Chronic kidney disease stage IV History of BPH with previous TURP History of hyperlipidemia History of hypertension History of diabetes mellitus History of coronary artery disease with previous PCI/stent Moderate chronic obstructive pulmonary disease Obstructive sleep apnea Obesity, with a BMI of 38.9 kg/m Plan: Patient is currently on room air oxygen Shortness of breath is improved and the patient is some residual cough continues to be on bronchodilators and steroids Management of atrial flutter per cardiology. The patient is currently on amiodarone. Anticoagulation as per cardiology. Continue renal replacement therapy Continue DuoNeb, Pulmicort and Perforomist inhalations Continue Solu-Medrol Remains on ceftriaxone for an underlying Klebsiella related urinary tract infection Keep Reynolds catheter in place Increase his activity as tolerated We will continue to follow
[2024-03-18] MEDS: METOPROLOL TARTRATE 25 MG TAB PO SCH (21:35)
[2024-03-18] MEDS: INSULIN DETEMIR (LEVEMIR) 100 UNIT/ML SYR SQ SCH (21:35)
--- NOTE | 2024-03-18 22:40 | PN ---
PROGRESS NOTE DATE OF SERVICE: 03/18/2024 SUBJECTIVE: This is an 78-year-old gentleman who was admitted with multiple medical problems including shortness of breath with a combination of COPD and CHF acute exacerbation and also worsening renal failure. The patient had a dialysis catheter inserted and dialysis is being planned today. The chest x-ray showed some fluid overload and prominent hilum. PAST MEDICAL HISTORY: Reviewed. REVIEW OF SYSTEMS: A 14-point review is negative except as mentioned earlier. CURRENT MEDICATIONS: Reviewed include DuoNeb, dose and rest of medications noted. PHYSICAL EXAMINATION: VITAL SIGNS: Pulse is 131, blood pressure 140/80, respirations 18. HEENT: Conjunctivae normal. NECK: No JVD. CARDIOVASCULAR: S1, S2 muffled. RESPIRATIONS: Breath sounds diminished at the bases. Bilateral scattered rhonchi and crackles. ABDOMEN: Soft. NERVOUS SYSTEM: Nonfocal. LABORATORY DATA: WBC 16.6, creatinine is 5.10, glucose 311. EKG shows possible atrial flutter versus junctional tachycardia. ASSESSMENT: 1. Shortness of breath, possibly combination of chronic obstructive pulmonary disease acute exacerbation, also congestive heart failure acute exacerbation with acute on chronic systolic dysfunction, ejection fraction 35% to 40%. 2. Acute on chronic renal failure, planned on new hemodialysis. 3. Tachycardia, possibly atrial flutter versus junctional tachycardia. 4. Diabetes mellitus, type 2, uncontrolled with hyperglycemia. 5. Chronic kidney stage 3 baseline. 6. Elevated plasma lactic acid. 7. Multiple medical issues. RECOMMENDATIONS: Recommended to continue current management and continue symptomatic treatment. Otherwise, at this time, the patient is currently on Lantus 35 subcu b.i.d. I would increase the dose to 40 b.i.d. and continue to monitor. The patient is on IV steroids and bronchodilators. We will taper the insulin once the steroids have been tapered or converted to p.o. Otherwise, the patient also had tachycardia at this time. I would recommend a TSH level if it is not done and also closely follow with Cardiology. Guarded prognosis. Further recommendations to follow. MMODL / IJN: [id number] /
[2024-03-19] MEDS: METOPROLOL TARTRATE 25 MG TAB PO STA ×2 (01:00→16:30)
[2024-03-19 05:55] LABS: Glucose,Whole Blood 120 mg/dL (70-110)
--- NOTE | 2024-03-19 07:27 | XR ---
EXAMINATION TYPE: XR chest 1V portable DATE OF EXAM: 03/19/2024 Comparison: 03/17/2024 Clinical History: 78-year-old man with CHF Findings: Right-sided double-lumen hemodialysis catheter tips in expected brachiocephalic vein confluence. Hear t is moderately enlarged. Mild interstitial densities unchanged. No araceli consolidation or pleural ef fusion. Impression: Similar cardiomegaly. Right-sided double-lumen hemodialysis catheter. There may be residual minimal p ulmonary vascular congestion.
[2024-03-19 10:19] LABS: Basophils % (A) 0 %; Eosinophils % (A) 0 %; HCT 40.8 % (39.0-53.0); HGB 13.1 gm/dL (13.0-17.5); Lymphocytes # (A) 0.3 k/uL (1.0-4.8); Lymphocytes % (A) 2 %; MCH 30.1 pg (25.0-35.0); MCHC 32.1 g/dL (31.0-37.0); MCV 93.9 fL (80.0-100.0); Mean Platelet Volume 7.3; Monocytes # (A) 0.4 k/uL (0-1.0); Monocytes % (A) 3 %; Neutrophils # (A) 14.8 k/uL (1.3-7.7); Neutrophils % (A) 95 %; Platelet Count 186 k/uL (150-450); RBC 4.35 m/uL (4.30-5.90); RDW 14.9 % (11.5-15.5); WBC 15.7 k/uL (3.8-10.6)
[2024-03-19 10:23] LABS: African American GFR (CKD) 16 (>60 ml/min/1.73 sqM); Anion Gap 12 mmol/L; Calcium 8.5 mg/dL (8.4-10.2); Carbon Dioxide 20 mmol/L (22-30); Chloride 103 mmol/L (98-107); Glucose 205 mg/dL (74-99); Non-African American GFR(CKD) 14 (>60 ml/min/1.73 sqM); Phosphorus 6.3 mg/dL (2.5-4.5); Potassium 4.4 mmol/L (3.5-5.1); Sodium 135 mmol/L (137-145)
[2024-03-19 10:24] LABS: Blood Urea Nitrogen 117 mg/dL (9-20)
--- NOTE | 2024-03-19 10:26 | P.PN ---
Subjective Patient is seen in follow-up for acute kidney injury on chronic kidney disease. Started on hemodialysis March 18, 2024. Has permacath. Has Reynolds catheter per urology. Denies chest pain or shortness of breath. Hemodynamically stable. Vital signs are stable. General: No acute distress. HEENT: Head exam is unremarkable. LUNGS: Scattered wheezing. HEART: Tachycardic. ABDOMEN: Nontender. EXTREMITITES: No edema. Objective - Vital Signs Vital signs: Vital Signs Temp 97.9 F 03/19/24 08:00 Pulse 120 H 03/19/24 08:00 Resp 22 03/19/24 08:00 BP 101/74 03/19/24 08:00 Pulse Ox 99 03/19/24 08:00 FiO2 Intake & Output 03/18/24 03/19/24 03/19/24 18:59 06:59 18:59 Intake Total 1548 250 225 Output Total 2600 650 Balance -1052 -400 225 Weight 100.5 kg Intake: IV 10 0.9 10 Oral 898 240 225 Hemodialysis 650 Output: Urine 1100 650 Hemodialysis 1500 Other: Voiding Method Indwelling Catheter Indwelling Catheter - Labs CBC & Chem 7: 03/19/24 09:21 03/18/24 07:24 Labs: Abnormal Lab Results - Last 24 Hours (Table) 03/18/24 03/18/24 03/18/24 Range/Units 07:24 12:16 16:22 WBC (3.8-10.6) k/uL Neutrophils # (1.3-7.7) k/uL Lymphocytes # (1.0-4.8) k/uL POC Glucose (mg/dL) 311 H 517 H* (70-110) mg/dL TSH 0.384 L (0.465-4.680) mIU/L 03/18/24 03/19/24 03/19/24 Range/Units 20:09 05:54 09:21 WBC 15.7 H (3.8-10.6) k/uL Neutrophils # 14.8 H (1.3-7.7) k/uL Lymphocytes # 0.3 L (1.0-4.8) k/uL POC Glucose (mg/dL) 286 H 120 H (70-110) mg/dL TSH (0.465-4.680) mIU/L Microbiology - Last 24 Hours (Table) 03/13/24 16:53 Blood Culture - Final Blood Assessment and Plan Plan: Assessment: 1. Acute kidney injury secondary to ATN secondary to cardiorenal syndrome and hemodynamic instability. Creatinine 5.11 dated March 18, 2024. Elevated BUN due to acute kidney injury as well as steroids. Nonoliguric. No hydronephrosis noted on kidney ultrasound. Right kidney atrophic. Started on hemodialysis March 18, 2024. Has permacath. 2. Chronic kidney disease stage IV secondary to diabetic kidney disease and nephrosclerosis with baseline creatinine 2.5-2.8. 3. Acute on chronic systolic CHF with ejection fraction of 35 to 40%. 4. Klebsiella UTI on antibiotics. 5. Urinary retention. Has Reynolds catheter. On Flomax. Urology following. 6. Volume overload. 7. Chronic kidney disease mineral bone disease maintained on calcitriol. 8. A-fib with RVR maintained on oral amiodarone and metoprolol. 9. Metabolic acidosis secondary to acute kidney injury. On oral bicarb. Stable. 10. Hyperphosphatemia secondary to acute kidney injury. On PhosLo. Phosphorus level 5.9 dated March 17, 2024. Plan: Second treatment of dialysis today and third treatment tomorrow. Encouraged oral intake. Strict I's and O's. Continue to monitor renal function and urine output. manager safe to set up outpatient hemodialysis. Monitor for renal recovery outpatient.
[2024-03-19 11:39] LABS: Glucose,Whole Blood 238 mg/dL (70-110)
--- NOTE | 2024-03-19 13:55 | P.PN ---
Subjective Progress Note Date: 03/19/24 HISTORY OF PRESENTING ILLNESS This is a pleasant 71-year-old with past medical history significant for COPD, CAD with prior stenting, diabetes mellitus type 2, hypertension, hyperlipidemia, chronic kidney disease. He follows in the office with Dr Ramos. He states that he has been having increased shortness of breath over last week and a half. He also has been having some upper abdominal achiness. Denies any specific chest pain or pressure. He has not really had an appetite over last few weeks. He does have chronic kidney disease with creatinine more than the 2.8 range however creatinine increased up before this admission. Denies any recent Motrin. No significant lightheadedness or dizziness. No recent changes to his medications. Chest x-ray performed which shows pulmonary vascular con gestion. Patient also has diffuse wheezes on exam. EKG showing sinus rhythm with frequent PACs. Troponin 0.05, 0.05. Lactic acid 2.2. ProBNP 4860 03/15 Patient seen and examined. Patient went into atrial flutter with RVR with initial heart rates in the 140s and initially looked like SVT and therefore adenosine was given with no improvement. Patient was started on Cardizem drip with underlying atrial flutter waves. He does not have any history of atrial flutter. We discussed anticoagulation for stroke prevention patient is agreeable. We will place patient on Lovenox in case he needs possible dialysis catheter placement. Denies any chest pain or pressure. He has been somewhat symptomatic with the atrial flutter with more shortness of breath. 03/16 Patient seen and examined. Patient states that his breathing is okay. No chest pain and no chest pressure. He does complain of cough. No palpitations. Plan is to start patient on hemodialysis on Monday. He is on a heparin drip which will be continued until after that. Blood pressure 117/56, heart rate 89, pulse ox 97% on room air. Repeat blood work reveals WBC 15.5, hemoglobin 11.5. Sodium 131, potassium 4.9, BUN 113, creatinine 4.79. Reviewed records from the office. Patient has not had an echocardiogram since 2016 which revealed EF of 50%. Patient has not been in the office since July 2018. Patient is also been maintained on IV amiodarone. He is off Cardizem drip. 03/17 Patient seen and examined. Blood pressure 128/63, heart rate 81, pulse ox 95% on 2 L nasal cannula. Patient remains in afib, controlled heart rate in the 80s- 90s. Repeat blood work reveals WBC 15.2, hemoglobin 12.1. Renal function has worsened and consult added for Dr. Marshall for dialysis catheter insertion. Yesterday, amiodarone was switched from IV to oral 400 mg twice daily. Patient is maintained on heparin drip until after catheter placement completed. Patient states he feels well today, no shortness of breath. 03/18 Patient is going from the room for insertion of dialysis catheter with plan to start hemodialysis today. Blood pressure 144/59, heart rate 84, pulse ox 98% on room air. Patient is maintained on heparin drip. 03/19 Patient had insertion of dialysis catheter done yesterday and started hemodialysis. His heart rate started running in the 120s during dialysis yesterday and he did have a drop in his blood pressure. This morning his heart rate started running in the 120s during dialysis yesterday and he did have a drop in his blood pressure with dialysis. This morning he is running in the 120s, atrial fibrillation, blood pressure 101/74, pulse ox 99% on 2 L. Yesterday, Lopressor was increased to 25 mg twice daily. PHYSICAL EXAMINATION Vital signs reviewed. CONSTITUTIONAL: No apparent distress. HEENT: Head is normocephalic. Pupils are equal, round. Sclerae anicteric. Mucous membran 111/74, pulse ox 99% on 2 L nasal cannula. Telemetry is atrial fibrillation.es of the mouth are moist. No JVD. No carotid bruit. CHEST EXAMINATION: Lungs are clear to auscultation. No chest wall tenderness is noted on palpation or with deep breathing. HEART EXAMINATION: Regular rate and rhythm. S1, S2 heard. No murmurs, gallops or rub. ABDOMEN: Soft, nontender. Positive bowel sounds. EXTREMITIES: 2+ peripheral pulses, no lower extremity edema and no calf tenderness. NEUROLOGIC EXAMINATION: Patient is awake, alert and oriented x3. ASSESSMENT Acute on chronic respiratory failure related to component of possible COPD exacerbation with audible wheezing plus component of heart failure/kidney failure Acute on chronic diastolic heart failure Acute kidney injury and chronic kidney disease stage IV, patient started on dialysis 03/18 Elevated troponins, related to chronic kidney disease, not indicative of ischemia or injury Atypical abdominal pain CAD with prior history of stenting Hypertension Hyperlipidemia Diabetes mellitus type 2 History of COPD Decreased appetite may be related to progressive CKD Typical atrial flutter/fibrillation, new onset with RVR PLAN Echo showing LV EF 35-40% which may also be in part related to tachy induced Continue Toprol and increase to 50 mg twice daily Continue amiodarone oral 400 mg twice daily Discontinue heparin drip and start patient on Eliquis 2.5 mg twice daily Continue telemetry monitoring Plan is for medical therapy to optimize heart failure regime as able to tolerate. Patient will be considered for outpatient ischemic workup. Nurse practitioner note has been reviewed, I agree with documented findings and plan of care. Patient was seen and examined. Objective - Vital Signs Vital signs: Vital Signs Temp 97.9 F 03/19/24 08:00 Pulse 118 H 03/19/24 11:57 Resp 22 03/19/24 08:00 BP 101/74 03/19/24 08:00 Pulse Ox 99 03/19/24 08:00 FiO2 Intake & Output 03/18/24 03/19/24 03/19/24 18:59 06:59 18:59 Intake Total 1548 250 225 Output Total 2600 650 Balance -1052 -400 225 Weight 100.5 kg Intake: IV 10 0.9 10 Oral 898 240 225 Hemodialysis 650 Output: Urine 1100 650 Hemodialysis 1500 Other: Voiding Method Indwelling Catheter Indwelling Catheter - Labs CBC & Chem 7: 03/19/24 09:21 03/19/24 09:21 Labs: Abnormal Lab Results - Last 24 Hours (Table) 03/18/24 03/18/24 03/18/24 Range/Units 07:24 16:22 20:09 WBC (3.8-10.6) k/uL Neutrophils # (1.3-7.7) k/uL Lymphocytes # (1.0-4.8) k/uL Sodium (137-145) mmol/L Carbon Dioxide (22-30) mmol/L BUN (9-20) mg/dL Creatinine (0.66-1.25) mg/dL Glucose (74-99) mg/dL POC Glucose (mg/dL) 517 H* 286 H (70-110) mg/dL Phosphorus (2.5-4.5) mg/dL TSH 0.384 L (0.465-4.680) mIU/L 03/19/24 03/19/24 03/19/24 Range/Units 05:54 09:21 09:21 WBC 15.7 H (3.8-10.6) k/uL Neutrophils # 14.8 H (1.3-7.7) k/uL Lymphocytes # 0.3 L (1.0-4.8) k/uL Sodium 135 L (137-145) mmol/L Carbon Dioxide 20 L (22-30) mmol/L BUN 117 H* (9-20) mg/dL Creatinine 3.84 H (0.66-1.25) mg/dL Glucose 205 H (74-99) mg/dL POC Glucose (mg/dL) 120 H (70-110) mg/dL Phosphorus 6.3 H (2.5-4.5) mg/dL TSH (0.465-4.680) mIU/L 03/19/24 Range/Units 11:38 WBC (3.8-10.6) k/uL Neutrophils # (1.3-7.7) k/uL Lymphocytes # (1.0-4.8) k/uL Sodium (137-145) mmol/L Carbon Dioxide (22-30) mmol/L BUN (9-20) mg/dL Creatinine (0.66-1.25) mg/dL Glucose (74-99) mg/dL POC Glucose (mg/dL) 238 H (70-110) mg/dL Phosphorus (2.5-4.5) mg/dL TSH (0.465-4.680) mIU/L Microbiology - Last 24 Hours (Table) 03/13/24 16:53 Blood Culture - Final Blood
--- NOTE | 2024-03-19 14:54 | P.PN ---
Subjective Progress Note Date: 03/19/24 Patient is an 78-year-old white male with past medical history significant for COPD, obstructive sleep apnea, coronary artery disease, hypertension, hyperlipidemia, chronic kidney disease, BPH and previous TURP. His primary care provider is Dr. Isbell. Did follow with Dr. Delacruz in the pulmonary office in the past, but has not been back in some time. He is known to have moderate COPD. Patient presented to emergency room yesterday complaining of about 4 weeks of worsening shortness of breath. Accompanied by chest tightness, wheezing, cough with green phlegm. Chest x-ray on arrival showed low lung volumes and general hazy appearance, atelectasis versus pulmonary edema. Also, noted to be more confused at home. ABG was drawn in the emergency department, with a PaO2 of 93, pCO2 of 37, pH of 7.36. He is also has had issues with frequent urination and incomplete voiding. He has history of urinary retention and underwent previous TURP in the past. Denies any burning or dysuria. Denies suprapubic pain. Denies fevers. Urinalysis positive for leukocyte esterase and bacteria. CBC: WBC count 12.1, hemoglobin 12.8, hematocrit 40.5, platelets 274. CMP: Sodium 143, potassium 4.2, chloride 110, serum bicarb 20, BUN 87, creatinine 4.44, glucose 72. Does have an indwelling urinary catheter. lactic 2. LFTs not elevated. Troponin 0.047. NT proBNP 4860. Negative for influenza, RSV, COVID. He is currently sitting up at the edge of the bed, reportedly just got up to use the bathroom. Seems to be oriented. He is on 2 L/min nasal cannula. SpO2 is 98%. He has audible wheezing. Vital signs are stable. The patient is seen today March 15, 2024 in follow-up on the selective care unit. He is currently sitting up in bed. Awake and alert in no acute distress. He is maintaining good O2 saturations in the 90s on 3 L/min per nasal cannula. No IV fluids. He is feeling better today compared to yesterday. Still somewhat bronchospastic and wheezing. He is continued on DuoNeb inhalations, Pulmicort and Perforomist inhalations, IV Solu-Medrol. He is on antibiotics in the form of ceftriaxone. Currently on a Cardizem drip at 10 mg/h. He did develop atrial fibrillation with a rapid ventricular response today. Urine culture positive for gram-negative bacilli. Blood culture revealing no growth. Sputum culture revealing no growth. White count 16.7. Hemoglobin 11.7. Platelets 212. Sodium 134. Potassium 5.0. Bicarb 20. BUN 94. Creatinine 4.88. Glucose 300. Procalcitonin 0.26. The patient is seen today March 16, 2024 in follow-up on the selective care unit. He is currently resting in bed. Awake and alert in no acute distress. He is maintaining O2 saturations in the 90s on room air. He is continued on a heparin drip. Continue on amiodarone drip at 0.5 mg/min. He is continued on DuoNeb inhalations, Pulmicort and Perforomist inhalations, Solu-Medrol at 40 mg every 8 hours. The patient is still somewhat bronchospastic and wheezing. He remains in atrial fibrillation with a better controlled ventricular response. He is on antibiotics in the form of ceftriaxone. Urine culture was positive for Klebsiella pneumoniae. Sputum culture revealed no growth. Blood cultures revealed no growth. White count 15.5. Hemoglobin 11.5. Platelets 212. Sodium 131. Potassium 4.9. Bicarb 17. BUN 113. Creatinine 4.79. Glucose 303. He has been initiated on sodium bicarb tablets. Current urine output 450 mL. The patient is seen today March 17, 2024 in follow-up on the selective care unit. He is currently resting comfortably in bed. Awake and alert in no acute distress. Maintaining good O2 saturations in the 90s on 2 L/min per nasal cannula. He remains on a heparin drip. He remains on DuoNeb inhalations, Pulmicort and Perforomist inhalations, Solu-Medrol. Antibiotics in the form of ceftriaxone. White count 15.2. Hemoglobin 12.1. Platelets 200,000. Sodium 136. Potassium 4.5. Bicarb 19. BUN 119. Creatinine 5.47. Glucose 176. Ur ine culture was positive for Klebsiella pneumoniae. Blood cultures revealed no growth. Sputum culture revealed no growth. Nephrology is following for possible renal replacement therapy. Chest x-ray reveals mild cardiomegaly and mild pulmonary vascular congestion. On 03/18/2024, the patient is being seen for a follow-up. The patient is known to have COPD, obstructive sleep apnea, coronary disease, hypertension hyperlipidemia chronic kidney disease. The patient also suffers from BPH and he has undergone previous TURP. The patient is not currently undergoing hemodialysis. He is on room air oxygen. Main complaint is some limited residual cough. Patient also being treated for an underlying urine tract infection with Klebsiella and the patient is currently on IV Rocephin. No other specific complaints. White cell count of 16.6 with a hemoglobin 12.8 and a platelet count of 215. The BUN levels at 137 with a potassium level of 5.1 and a sodium level is at 137 and a potassium level is at 4.1. Free T4 is at 0.9 with a TSH of 0.38. The patient remains on DuoNeb updrafts. The patient is on Levemir insulin. The patient is on oral bicarb. The urine output remains active and the patient is producing adequate amount of urine output and remains in negative fluid balance. Nephrology is on the case for now. Remains on bronchodilators. Remains on steroids. The chest x-ray that was done on 03/17/2024 showed mild cardiomegaly and pulm vessel congestion and some atelectatic change in lung base bilaterally. 03/19/2024, I am seeing the patient for a follow-up. Patient is resting comfortably in bed. The patient is currently on room air oxygen. Denies having any significant shortness of breath at rest. No chest pain. No angina or palpitations. The patient underwent hemodialysis yesterday. His current oxygenation stable on room air oxygen. Meanwhile, the patient was noted to have some increased tachycardia with atrial fibrillation. Cardiology on the case. The patient is currently on metoprolol and the dose was increased up to 50 mg twice a day. Will monitor his blood pressure response. Continue bronchodilators. Continue steroids. Continue Levemir insulin 40 units every 12 hours and sliding scale coverage. Continue IV Rocephin. The patient's white cell count is at 15.7 with a hemoglobin of 13.1 and a platelet count of 186. BUN is 117 with a creatinine of 3.84 and sodium levels at 135. Patient is being seen by cardiology and nephrology. The patient has mentioned sustaining acute kidney injury on top of chronic kidney disease. Started on hemodialysis on 03/18/2024. Hemodynamically stable. Reynolds catheter is in place. A second treatment with dialysis to be done today and the third tomorrow. His chest x- ray from today shows cardiomegaly and mild interstitial prominence nasal congestion heart failure. Objective - Vital Signs Vital signs: Vital Signs Temp 97.9 F 03/19/24 08:00 Pulse 120 H 03/19/24 08:00 Resp 22 03/19/24 08:00 BP 101/74 03/19/24 08:00 Pulse Ox 99 03/19/24 08:00 FiO2 Intake & Output 03/18/24 03/19/24 03/19/24 18:59 06:59 18:59 Intake Total 1548 250 225 Output Total 2600 650 Balance -1052 -400 225 Weight 100.5 kg Intake: IV 10 0.9 10 Oral 898 240 225 Hemodialysis 650 Output: Urine 1100 650 Hemodialysis 1500 Other: Voiding Method Indwelling Catheter Indwelling Catheter - Exam GENERAL EXAM: Alert, pleasant 78-year-old male, on room air oxygen, comfortable in no acute distress. HEAD: Normocephalic and atraumatic EYES: Normal reaction of pupils, equal size. NOSE: Clear with pink turbinates. THROAT: No erythema or exudates. NECK: No masses, no JVD. CHEST: No chest wall deformity. LUNGS: Equal air entry with bilateral expiratory wheezes. CVS: S1 and S2 normal with no audible murmur, regular rhythm. No extra heart sounds ABDOMEN: No hepatosplenomegaly, active bowel sounds, no guarding or rigidity. SPINE: No scoliosis or deformity SKIN: No rashes CENTRAL NERVOUS SYSTEM: No focal deficits, tone is normal in all 4 extremities. EXTREMITIES: There is no peripheral edema, clubbing, or cyanosis. Peripheral pulses are intact. - Labs CBC & Chem 7: 03/19/24 09:21 03/19/24 09:21 Labs: Abnormal Lab Results - Last 24 Hours (Table) 03/18/24 03/18/24 03/18/24 Range/Units 07:24 12:16 16:22 WBC (3.8-10.6) k/uL Neutrophils # (1.3-7.7) k/uL Lymphocytes # (1.0-4.8) k/uL Sodium (137-145) mmol/L Carbon Dioxide (22-30) mmol/L BUN (9-20) mg/dL Creatinine (0.66-1.25) mg/dL Glucose (74-99) mg/dL POC Glucose (mg/dL) 311 H 517 H* (70-110) mg/dL Phosphorus (2.5-4.5) mg/dL TSH 0.384 L (0.465-4.680) mIU/L 03/18/24 03/19/24 03/19/24 Range/Units 20:09 05:54 09:21 WBC (3.8-10.6) k/uL Neutrophils # (1.3-7.7) k/uL Lymphocytes # (1.0-4.8) k/uL Sodium 135 L (137-145) mmol/L Carbon Dioxide 20 L (22-30) mmol/L BUN 117 H* (9-20) mg/dL Creatinine 3.84 H (0.66-1.25) mg/dL Glucose 205 H (74-99) mg/dL POC Glucose (mg/dL) 286 H 120 H (70-110) mg/dL Phosphorus 6.3 H (2.5-4.5) mg/dL TSH (0.465-4.680) mIU/L 03/19/24 Range/Units 09:21 WBC 15.7 H (3.8-10.6) k/uL Neutrophils # 14.8 H (1.3-7.7) k/uL Lymphocytes # 0.3 L (1.0-4.8) k/uL Sodium (137-145) mmol/L Carbon Dioxide (22-30) mmol/L BUN (9-20) mg/dL Creatinine (0.66-1.25) mg/dL Glucose (74-99) mg/dL POC Glucose (mg/dL) (70-110) mg/dL Phosphorus (2.5-4.5) mg/dL TSH (0.465-4.680) mIU/L Microbiology - Last 24 Hours (Table) 03/13/24 16:53 Blood Culture - Final Blood Assessment and Plan Plan: Acute hypoxemic respiratory failure, recovered and on room air, likely secondary to acute COPD exacerbation and a systolic CHF exacerbation. Favor CHF with fluid overload in the setting of an acute on chronic kidney failure. The patient is currently undergoing hemodialysis. The chest x-ray on arrival showed low lung volumes and general hazy appearance, atelectasis versus pulmonary edema. NT proBNP was elevated at 4860. Negative for influenza, RSV, COVID. Noted the patient is currently on room air oxygen. Repeat chest x-ray from 03/19/2024 shows cardiomegaly with mild pulm venous congestion. No dyspnea at rest. Atrial fibrillation with a rapid ventricular response, and the most recent EKG from today is consistent with flutter. The patient is on amiodarone. The metoprolol has been increased to 50 mg twice a day. Anticoagulation as per cardiology. Acute exacerbation of chronic systolic congestive heart failure. Ejection fraction 35 to 40%. Global hypokinesis Acute on chronic kidney disease, possibly postobstructive secondary to retention, patient has indwelling urinary catheter placed, producing adequate amount of urine output and the patient is also being dialyzed. Nephrology on the case. Hemodialysis was started on 03/18/2024. Urinary tract infection secondary to Klebsiella pneumoniae, currently on ceftriaxone Elevated troponin, possibly supply/demand related Chronic kidney disease stage IV History of BPH with previous TURP History of hyperlipidemia History of hypertension History of diabetes mellitus History of coronary artery disease with previous PCI/stent Moderate chronic obstructive pulmonary disease Obstructive sleep apnea Obesity, with a BMI of 38.9 kg/m Plan: Patient is currently on room air oxygen Shortness of breath is improved and the patient is some residual cough continues to be on bronchodilators and steroids Management of atrial flutter per cardiology. The patient is currently on amiodarone. Anticoagulation as per cardiology. Continue renal replacement therapy Continue DuoNeb, Pulmicort and Perforomist inhalations Continue Solu-Medrol, drop the dose to 40 mg every 12 hours. Remains on ceftriaxone for an underlying Klebsiella related urinary tract infection Keep Reynolds catheter in place Hemodialysis today. Increase his activity as tolerated We will continue to follow
[2024-03-19 16:17] LABS: Glucose,Whole Blood 262 mg/dL (70-110)
[2024-03-19] MEDS: APIXABAN 2.5 MG TABLET PO SCH (16:30)
[2024-03-19] MEDS: methylPREDNISolone SOD SUCCI 40 MG/ML 1 ML VIAL IV SCH (16:31)
[2024-03-19] MEDS: LACTULOSE 20 GM/30 ML CUP PO SCH (16:31)
[2024-03-19 20:18] LABS: Glucose,Whole Blood 251 mg/dL (70-110)
[2024-03-19] MEDS: METOPROLOL TARTRATE 50 MG TAB PO SCH (20:49)
--- NOTE | 2024-03-19 22:18 | PN ---
PROGRESS NOTE DATE OF SERVICE: 03/19/2024 SUBJECTIVE: This is an 78-year-old gentleman admitted with shortness of breath, possibly multifactorial, has started on new onset hemodialysis. The patient has less shortness of breath at this time. A chest x-ray done today which I reviewed showed only few increased bronchovascular markings at this time. Multiple consultants are following the patient closely. PAST MEDICAL HISTORY: Reviewed. REVIEW OF SYSTEMS: Fourteen-point review is negative except as mentioned earlier. CURRENT MEDICATIONS: Reviewed. PHYSICAL EXAMINATION: VITAL SIGNS: Pulse is 120, blood pressure 101/74, respirations 20. HEENT: Conjunctivae normal. NECK: No JVD. CARDIOVASCULAR: S1, S2. RESPIRATIONS: Breath sounds diminished at the bases. A few scattered rhonchi and crackles. ABDOMEN: Soft. LEGS: No edema. NERVOUS SYSTEM: Nonfocal. LABORATORY DATA: Sodium 135. Rest of the labs are noted. The EKG available in the chart done yesterday showed junctional tachycardia versus atrial flutter. ASSESSMENT: 1. Shortness of breath, possibly a combination of chronic obstructive pulmonary disease acute exacerbation, also congestive heart failure acute exacerbation, acute on chronic systolic dysfunction, ejection fraction 30% to 40%. 2. Acute on chronic renal failure, on new hemodialysis. 3. Tachycardia, possibly atrial flutter versus junctional tachycardia. 4. Diabetes mellitus, type 2, uncontrolled with hyperglycemia. 5. Chronic kidney disease stage 3 baseline. 6. Elevated plasma lactic acid. 7. Multiple medical issues. RECOMMENDATIONS AND DISCUSSION: I recommend to continue current medications. Continue symptomatic treatment. Otherwise, continue the hemodialysis. Repeat labs. The patient has some tachycardia. We will follow closely with Cardiology. Further recommendations to follow. MMODL / IJN: [id number] /
[2024-03-20 05:49] LABS: Glucose,Whole Blood 74 mg/dL (70-110)
--- NOTE | 2024-03-20 10:00 | XR ---
EXAMINATION TYPE: XR chest 1V portable DATE OF EXAM: 03/20/2024 Comparison: 03/19/2024 Clinical History: 78-year-old male CHF, copd, sob Findings: Right-sided double lumen hemodialysis catheter with tips at the expected brachiocephalic vein conflue nce. Moderate cardiomegaly redemonstrated. Interstitium shows improvement. There may be some residual mild density at the lower lungs that could represent some strandy atelectasis. Impression: Moderate cardiomegaly with improving interstitium.
[2024-03-20 11:15] LABS: Glucose,Whole Blood 113 mg/dL (70-110)
--- NOTE | 2024-03-20 12:24 | P.PN ---
Subjective Patient is seen in follow-up for acute kidney injury on chronic kidney disease. Started on hemodialysis March 18, 2024. Has permacath. Has Reynolds catheter per urology. Denies chest pain or shortness of breath. Hemodynamically stable. Tolerated 1 L ultrafiltration yesterday. Vital signs are stable. General: No acute distress. HEENT: Head exam is unremarkable. LUNGS: Scattered wheezing. HEART: Tachycardic. ABDOMEN: Nontender. EXTREMITITES: No edema. Objective - Vital Signs Vital signs: Vital Signs Temp 97.6 F 03/20/24 11:37 Pulse 113 H 03/20/24 11:37 Resp 20 03/20/24 11:37 BP 118/76 03/20/24 11:37 Pulse Ox 95 03/20/24 11:37 FiO2 Intake & Output 03/19/24 03/20/24 03/20/24 18:59 06:59 18:59 Intake Total 915 118 Output Total 1725 325 450 Balance -810 -325 -332 Weight 121.5 kg Intake: Oral 465 118 Hemodialysis 450 Output: Urine 325 325 450 Hemodialysis 1400 Other: Voiding Method Indwelling Catheter Indwelling Catheter Indwelling Catheter - Labs CBC & Chem 7: 03/19/24 09:21 03/19/24 09:21 Labs: Abnormal Lab Results - Last 24 Hours (Table) 03/19/24 03/19/24 03/20/24 Range/Units 16:06 20:07 11:13 POC Glucose (mg/dL) 262 H 251 H 113 H (70-110) mg/dL Assessment and Plan Plan: Assessment: 1. Acute kidney injury secondary to ATN secondary to cardiorenal syndrome and hemodynamic instability. Creatinine 5.11 dated March 18, 2024. Elevated BUN due to acute kidney injury as well as steroids. Nonoliguric. No hydronephrosis noted on kidney ultrasound. Right kidney atrophic. Started on hemodialysis March 18, 2024. Has permacath. 2. Chronic kidney disease stage IV secondary to diabetic kidney disease and nephrosclerosis with baseline creatinine 2.5-2.8. 3. Acute on chronic systolic CHF with ejection fraction of 35 to 40%. 4. Klebsiella UTI on antibiotics. 5. Urinary retention. Has Reynolds catheter. On Flomax. Urology following. 6. Volume overload. 7. Chronic kidney disease mineral bone disease maintained on calcitriol. 8. A-fib with RVR maintained on oral amiodarone and metoprolol. 9. Metabolic acidosis secondary to acute kidney injury. On oral bicarb. Stable. 10. Hyperphosphatemia secondary to acute kidney injury. On PhosLo. Phosphorus level 5.9 dated March 17, 2024. Plan: Third treatment of hemodialysis today. Plan for short treatment tomorrow as he will be maintained on Monday schedule outpatient. Encouraged oral intake. Continue to monitor renal function and urine output. senior project manager to set up outpatient hemodialysis. Monitor for renal recovery outpatient.
[2024-03-20 13:34] LABS: African American GFR (CKD) 18 (>60 ml/min/1.73 sqM); Anion Gap 9 mmol/L; Calcium 8.7 mg/dL (8.4-10.2); Carbon Dioxide 28 mmol/L (22-30); Chloride 101 mmol/L (98-107); Glucose 79 mg/dL (74-99); Magnesium 2.1 mg/dL (1.6-2.3); Non-African American GFR(CKD) 16 (>60 ml/min/1.73 sqM); Phosphorus 5.9 mg/dL (2.5-4.5); Potassium 3.9 mmol/L (3.5-5.1); Sodium 138 mmol/L (137-145)
[2024-03-20 13:44] LABS: Blood Urea Nitrogen 105 mg/dL (9-20)
--- NOTE | 2024-03-20 14:25 | P.PN ---
Subjective Progress Note Date: 03/20/24 HISTORY OF PRESENTING ILLNESS This is a pleasant 71-year-old with past medical history significant for COPD, CAD with prior stenting, diabetes mellitus type 2, hypertension, hyperlipidemia, chronic kidney disease. He follows in the office with Dr Ramos. He states that he has been having increased shortness of breath over last week and a half. He also has been having some upper abdominal achiness. Denies any specific chest pain or pressure. He has not really had an appetite over last few weeks. He does have chronic kidney disease with creatinine more than the 2.8 range however creatinine increased up before this admission. Denies any recent Motrin. No significant lightheadedness or dizziness. No recent changes to his medications. Chest x-ray performed which shows pulmonary vascular con gestion. Patient also has diffuse wheezes on exam. EKG showing sinus rhythm with frequent PACs. Troponin 0.05, 0.05. Lactic acid 2.2. ProBNP 4860 03/15 Patient seen and examined. Patient went into atrial flutter with RVR with initial heart rates in the 140s and initially looked like SVT and therefore adenosine was given with no improvement. Patient was started on Cardizem drip with underlying atrial flutter waves. He does not have any history of atrial flutter. We discussed anticoagulation for stroke prevention patient is agreeable. We will place patient on Lovenox in case he needs possible dialysis catheter placement. Denies any chest pain or pressure. He has been somewhat symptomatic with the atrial flutter with more shortness of breath. 03/16 Patient seen and examined. Patient states that his breathing is okay. No chest pain and no chest pressure. He does complain of cough. No palpitations. Plan is to start patient on hemodialysis on Monday. He is on a heparin drip which will be continued until after that. Blood pressure 117/56, heart rate 89, pulse ox 97% on room air. Repeat blood work reveals WBC 15.5, hemoglobin 11.5. Sodium 131, potassium 4.9, BUN 113, creatinine 4.79. Reviewed records from the office. Patient has not had an echocardiogram since 2016 which revealed EF of 50%. Patient has not been in the office since July 2018. Patient is also been maintained on IV amiodarone. He is off Cardizem drip. 03/17 Patient seen and examined. Blood pressure 128/63, heart rate 81, pulse ox 95% on 2 L nasal cannula. Patient remains in afib, controlled heart rate in the 80s- 90s. Repeat blood work reveals WBC 15.2, hemoglobin 12.1. Renal function has worsened and consult added for Dr. Marshall for dialysis catheter insertion. Yesterday, amiodarone was switched from IV to oral 400 mg twice daily. Patient is maintained on heparin drip until after catheter placement completed. Patient states he feels well today, no shortness of breath. 03/18 Patient is going from the room for insertion of dialysis catheter with plan to start hemodialysis today. Blood pressure 144/59, heart rate 84, pulse ox 98% on room air. Patient is maintained on heparin drip. 03/19 Patient had insertion of dialysis catheter done yesterday and started hemodialysis. His heart rate started running in the 120s during dialysis yesterday and he did have a drop in his blood pressure. This morning his heart rate started running in the 120s during dialysis yesterday and he did have a drop in his blood pressure with dialysis. This morning he is running in the 120s, atrial fibrillation, blood pressure 101/74, pulse ox 99% on 2 L. Yesterday, Lopressor was increased to 25 mg twice daily. 03/20 Patient continues to be in atrial fibrillation with heart rates better contro lled in the low 100s. Repeat chest x-ray reveals moderate cardiomegaly with improving interstitium. Patient is scheduled for his third hemodialysis treatment today. He denies any new concerns today. No chest pain. No palpitations. Yesterday Toprol-XL was increased to 50 mg twice daily and he was continued on amiodarone 400 mg twice daily. Yesterday heparin drip was discontinued and started Eliquis. PHYSICAL EXAMINATION Vital signs reviewed. CONSTITUTIONAL: No apparent distress. HEENT: Head is normocephalic. Pupils are equal, round. Sclerae anicteric. Mucous membran 111/74, pulse ox 99% on 2 L nasal cannula. Telemetry is atrial fibrillation.es of the mouth are moist. No JVD. No carotid bruit. CHEST EXAMINATION: Lungs are clear to auscultation. No chest wall tenderness is noted on palpation or with deep breathing. HEART EXAMINATION: Regular rate and rhythm. S1, S2 heard. No murmurs, gallops or rub. ABDOMEN: Soft, nontender. Positive bowel sounds. EXTREMITIES: 2+ peripheral pulses, no lower extremity edema and no calf tenderness. NEUROLOGIC EXAMINATION: Patient is awake, alert and oriented x3. ASSESSMENT Acute on chronic respiratory failure related to component of possible COPD exacerbation with audible wheezing plus component of heart failure/kidney failure Acute on chronic diastolic heart failure Acute kidney injury and chronic kidney disease stage IV, patient started on dialysis 03/18 Elevated troponins, related to chronic kidney disease, not indicative of ischemi a or injury Atypical abdominal pain CAD with prior history of stenting Hypertension Hyperlipidemia Diabetes mellitus type 2 History of COPD Decreased appetite may be related to progressive CKD Typical atrial flutter/fibrillation, new onset with RVR PLAN Echo showing LV EF 35-40% which may also be in part related to tachy induced Continue Toprol 50 mg twice daily Continue amiodarone oral 400 mg twice daily Continue patient on Eliquis 2.5 mg twice daily Continue telemetry monitoring Plan is for medical therapy to optimize heart failure regime as able to tolerate. Patient will be considered for outpatient ischemic workup. Nurse practitioner note has been reviewed, I agree with documented findings and plan of care. Patient was seen and examined. Objective - Vital Signs Vital signs: Vital Signs Temp 98.1 F 03/20/24 03:33 Pulse 120 H 03/20/24 09:56 Resp 20 03/20/24 08:00 BP 120/81 03/20/24 08:00 Pulse Ox 98 03/20/24 09:35 FiO2 Intake & Output 03/19/24 03/20/24 03/20/24 18:59 06:59 18:59 Intake Total 915 118 Output Total 1725 325 Balance -810 -325 118 Weight 121.5 kg Intake: Oral 465 118 Hemodialysis 450 Output: Urine 325 325 Hemodialysis 1400 Other: Voiding Method Indwelling Catheter Indwelling Catheter - Labs CBC & Chem 7: 03/19/24 09:21 03/20/24 12:22 Labs: Abnormal Lab Results - Last 24 Hours (Table) 03/19/24 03/19/24 03/19/24 Range/Units 09:21 09:21 11:38 WBC 15.7 H (3.8-10.6) k/uL Neutrophils # 14.8 H (1.3-7.7) k/uL Lymphocytes # 0.3 L (1.0-4.8) k/uL Sodium 135 L (137-145) mmol/L Carbon Dioxide 20 L (22-30) mmol/L BUN 117 H* (9-20) mg/dL Creatinine 3.84 H (0.66-1.25) mg/dL Glucose 205 H (74-99) mg/dL POC Glucose (mg/dL) 238 H (70-110) mg/dL Phosphorus 6.3 H (2.5-4.5) mg/dL 03/19/24 03/19/24 Range/Units 16:06 20:07 WBC (3.8-10.6) k/uL Neutrophils # (1.3-7.7) k/uL Lymphocytes # (1.0-4.8) k/uL Sodium (137-145) mmol/L Carbon Dioxide (22-30) mmol/L BUN (9-20) mg/dL Creatinine (0.66-1.25) mg/dL Glucose (74-99) mg/dL POC Glucose (mg/dL) 262 H 251 H (70-110) mg/dL Phosphorus (2.5-4.5) mg/dL
[2024-03-20 17:11] LABS: Glucose,Whole Blood 84 mg/dL (70-110)
--- NOTE | 2024-03-20 18:18 | P.PN ---
Subjective Progress Note Date: 03/20/24 Patient is an 78-year-old white male with past medical history significant for COPD, obstructive sleep apnea, coronary artery disease, hypertension, hyperlipidemia, chronic kidney disease, BPH and previous TURP. His primary care provider is Dr. Isbell. Did follow with Dr. Delacruz in the pulmonary office in the past, but has not been back in some time. He is known to have moderate COPD. Patient presented to emergency room yesterday complaining of about 4 weeks of worsening shortness of breath. Accompanied by chest tightness, wheezing, cough with green phlegm. Chest x-ray on arrival showed low lung volumes and general hazy appearance, atelectasis versus pulmonary edema. Also, noted to be more confused at home. ABG was drawn in the emergency department, with a PaO2 of 93, pCO2 of 37, pH of 7.36. He is also has had issues with frequent urination and incomplete voiding. He has history of urinary retention and underwent previous TURP in the past. Denies any burning or dysuria. Denies suprapubic pain. Denies fevers. Urinalysis positive for leukocyte esterase and bacteria. CBC: WBC count 12.1, hemoglobin 12.8, hematocrit 40.5, platelets 274. CMP: Sodium 143, potassium 4.2, chloride 110, serum bicarb 20, BUN 87, creatinine 4.44, glucose 72. Does have an indwelling urinary catheter. lactic 2. LFTs not elevated. Troponin 0.047. NT proBNP 4860. Negative for influenza, RSV, COVID. He is currently sitting up at the edge of the bed, reportedly just got up to use the bathroom. Seems to be oriented. He is on 2 L/min nasal cannula. SpO2 is 98%. He has audible wheezing. Vital signs are stable. The patient is seen today March 15, 2024 in follow-up on the selective care unit. He is currently sitting up in bed. Awake and alert in no acute distress. He is maintaining good O2 saturations in the 90s on 3 L/min per nasal cannula. No IV fluids. He is feeling better today compared to yesterday. Still somewhat bronchospastic and wheezing. He is continued on DuoNeb inhalations, Pulmicort and Perforomist inhalations, IV Solu-Medrol. He is on antibiotics in the form of ceftriaxone. Currently on a Cardizem drip at 10 mg/h. He did develop atrial fibrillation with a rapid ventricular response today. Urine culture positive for gram-negative bacilli. Blood culture revealing no growth. Sputum culture revealing no growth. White count 16.7. Hemoglobin 11.7. Platelets 212. Sodium 134. Potassium 5.0. Bicarb 20. BUN 94. Creatinine 4.88. Glucose 300. Procalcitonin 0.26. The patient is seen today March 16, 2024 in follow-up on the selective care unit. He is currently resting in bed. Awake and alert in no acute distress. He is maintaining O2 saturations in the 90s on room air. He is continued on a heparin drip. Continue on amiodarone drip at 0.5 mg/min. He is continued on DuoNeb inhalations, Pulmicort and Perforomist inhalations, Solu-Medrol at 40 mg every 8 hours. The patient is still somewhat bronchospastic and wheezing. He remains in atrial fibrillation with a better controlled ventricular response. He is on antibiotics in the form of ceftriaxone. Urine culture was positive for Klebsiella pneumoniae. Sputum culture revealed no growth. Blood cultures revealed no growth. White count 15.5. Hemoglobin 11.5. Platelets 212. Sodium 131. Potassium 4.9. Bicarb 17. BUN 113. Creatinine 4.79. Glucose 303. He has been initiated on sodium bicarb tablets. Current urine output 450 mL. The patient is seen today March 17, 2024 in follow-up on the selective care unit. He is currently resting comfortably in bed. Awake and alert in no acute distress. Maintaining good O2 saturations in the 90s on 2 L/min per nasal cannula. He remains on a heparin drip. He remains on DuoNeb inhalations, Pulmicort and Perforomist inhalations, Solu-Medrol. Antibiotics in the form of ceftriaxone. White count 15.2. Hemoglobin 12.1. Platelets 200,000. Sodium 136. Potassium 4.5. Bicarb 19. BUN 119. Creatinine 5.47. Glucose 176. Ur ine culture was positive for Klebsiella pneumoniae. Blood cultures revealed no growth. Sputum culture revealed no growth. Nephrology is following for possible renal replacement therapy. Chest x-ray reveals mild cardiomegaly and mild pulmonary vascular congestion. On 03/18/2024, the patient is being seen for a follow-up. The patient is known to have COPD, obstructive sleep apnea, coronary disease, hypertension hyperlipidemia chronic kidney disease. The patient also suffers from BPH and he has undergone previous TURP. The patient is not currently undergoing hemodialysis. He is on room air oxygen. Main complaint is some limited residual cough. Patient also being treated for an underlying urine tract infection with Klebsiella and the patient is currently on IV Rocephin. No other specific complaints. White cell count of 16.6 with a hemoglobin 12.8 and a platelet count of 215. The BUN levels at 137 with a potassium level of 5.1 and a sodium level is at 137 and a potassium level is at 4.1. Free T4 is at 0.9 with a TSH of 0.38. The patient remains on DuoNeb updrafts. The patient is on Levemir insulin. The patient is on oral bicarb. The urine output remains active and the patient is producing adequate amount of urine output and remains in negative fluid balance. Nephrology is on the case for now. Remains on bronchodilators. Remains on steroids. The chest x-ray that was done on 03/17/2024 showed mild cardiomegaly and pulm vessel congestion and some atelectatic change in lung base bilaterally. 03/19/2024, I am seeing the patient for a follow-up. Patient is resting comfortably in bed. The patient is currently on room air oxygen. Denies having any significant shortness of breath at rest. No chest pain. No angina or palpitations. The patient underwent hemodialysis yesterday. His current oxygenation stable on room air oxygen. Meanwhile, the patient was noted to have some increased tachycardia with atrial fibrillation. Cardiology on the case. The patient is currently on metoprolol and the dose was increased up to 50 mg twice a day. Will monitor his blood pressure response. Continue bronchodilators. Continue steroids. Continue Levemir insulin 40 units every 12 hours and sliding scale coverage. Continue IV Rocephin. The patient's white cell count is at 15.7 with a hemoglobin of 13.1 and a platelet count of 186. BUN is 117 with a creatinine of 3.84 and sodium levels at 135. Patient is being seen by cardiology and nephrology. The patient has mentioned sustaining acute kidney injury on top of chronic kidney disease. Started on hemodialysis on 03/18/2024. Hemodynamically stable. Reynolds catheter is in place. A second treatment with dialysis to be done today and the third tomorrow. His chest x- ray from today shows cardiomegaly and mild interstitial prominence nasal congestion heart failure. On 03/20/2024, the patient is being seen for a follow-up. The patient is stable on room air oxygen. He is undergoing hemodialysis today. Remains on bronchodilators. Remains on Solu-Medrol and the patient has been weaned down to 40 mg IV every 12 hours. Limited cough and congestion. Remains on DuoNeb AND remains on Perforomist and Pulmicort nebulized treatment twice a day. No chest pain. Volume status is improving. The BUN is at 105 with a creatinine of 3.46 and a sodium level is 138 and a potassium level is at 3.9. Hematologic profile from 03/19/2024 showed a white cell count of 15.7 and hemoglobin of 15.1. The patient's urine culture is positive for Klebsiella pneumonia and this urine culture was collected on 03/13/2024. Objective - Vital Signs Vital signs: Vital Signs Temp 97.6 F 03/20/24 11:37 Pulse 113 H 03/20/24 11:37 Resp 20 03/20/24 11:37 BP 118/76 03/20/24 11:37 Pulse Ox 95 03/20/24 11:37 FiO2 Intake & Output 03/19/24 03/20/24 03/20/24 18:59 06:59 18:59 Intake Total 915 236 Output Total 1725 325 450 Balance -810 -325 -214 Weight 121.5 kg Intake: Oral 465 236 Hemodialysis 450 Output: Urine 325 325 450 Hemodialysis 1400 Other: Voiding Method Indwelling Catheter Indwelling Catheter Indwelling Catheter - Exam GENERAL EXAM: Alert, pleasant 78-year-old male, on room air oxygen, comfortable in no acute distress. HEAD: Normocephalic and atraumatic EYES: Normal reaction of pupils, equal size. NOSE: Clear with pink turbinates. THROAT: No erythema or exudates. NECK: No masses, no JVD. CHEST: No chest wall deformity. LUNGS: Equal air entry with bilateral expiratory wheezes. CVS: S1 and S2 normal with no audible murmur, regular rhythm. No extra heart sounds ABDOMEN: No hepatosplenomegaly, active bowel sounds, no guarding or rigidity. SPINE: No scoliosis or deformity SKIN: No rashes CENTRAL NERVOUS SYSTEM: No focal deficits, tone is normal in all 4 extremities. EXTREMITIES: There is no peripheral edema, clubbing, or cyanosis. Peripheral pulses are intact. - Labs CBC & Chem 7: 03/19/24 09:21 03/20/24 12:22 Labs: Abnormal Lab Results - Last 24 Hours (Table) 03/19/24 03/19/24 03/20/24 Range/Units 16:06 20:07 11:13 BUN (9-20) mg/dL Creatinine (0.66-1.25) mg/dL POC Glucose (mg/dL) 262 H 251 H 113 H (70-110) mg/dL Phosphorus (2.5-4.5) mg/dL 03/20/24 Range/Units 12:22 BUN 105 H* (9-20) mg/dL Creatinine 3.46 H (0.66-1.25) mg/dL POC Glucose (mg/dL) (70-110) mg/dL Phosphorus 5.9 H (2.5-4.5) mg/dL Assessment and Plan Plan: Acute hypoxemic respiratory failure, recovered and on room air, likely secondary to acute COPD exacerbation and a systolic CHF exacerbation. Favor CHF with fluid overload in the setting of an acute on chronic kidney failure. The patient is currently undergoing hemodialysis. The chest x-ray on arrival showed low lung volumes and general hazy appearance, atelectasis versus pulmonary edema. NT proBNP was elevated at 4860. Negative for influenza, RSV, COVID. Noted the patient is currently on room air oxygen. Repeat chest x-ray from 03/19/2024 shows cardiomegaly with mild pulm venous congestion. No dyspnea at rest. Atrial fibrillation with a rapid ventricular response, and the most recent EKG from today is consistent with flutter. The patient is on amiodarone. The metoprolol has been increased to 50 mg twice a day. Anticoagulation as per cardiology. Acute exacerbation of chronic systolic congestive heart failure. Ejection fraction 35 to 40%. Global hypokinesis Acute on chronic kidney disease, possibly postobstructive secondary to retention, patient has indwelling urinary catheter placed, producing adequate amount of urine output and the patient is also being dialyzed. Nephrology on the case. Hemodialysis was started on 03/18/2024. Currently undergoing hemodialysis. Nephrology on the case. Urinary tract infection secondary to Klebsiella pneumoniae, currently on ceftriaxone, completed the course of antibiotics. Elevated troponin, possibly supply/demand related Chronic kidney disease stage IV History of BPH with previous TURP History of hyperlipidemia History of hypertension History of diabetes mellitus History of coronary artery disease with previous PCI/stent Moderate chronic obstructive pulmonary disease Obstructive sleep apnea Obesity, with a BMI of 38.9 kg/m Plan: Patient is currently on room air oxygen Shortness of breath is improved and the patient is some residual cough continues to be on bronchodilators and steroids. Overall, no major changes compared to yesterday. Management of atrial flutter per cardiology. The patient is currently on amiodarone. Anticoagulation as per cardiology. Continue renal replacement therapy Continue DuoNeb, Pulmicort and Perforomist inhalations Continue Solu-Medrol, 40 mg every 12 hours. Remains on ceftriaxone for an underlying Klebsiella related urinary tract infection, completed the course of antibiotics. Keep Reynolds catheter in place, producing adequate amount of urine output. Hemodialysis today. Increase his activity as tolerated We will continue to follow
--- NOTE | 2024-03-20 20:10 | PN ---
PROGRESS NOTE DATE OF SERVICE: 03/20/2024 SUBJECTIVE: This is an 78-year-old gentleman with shortness of breath and worsening renal failure. The patient had a combination of COPD and CHF also. Ejection fraction 30% to 40%. The patient is started on new onset hemodialysis. The patient still has some shortness of breath. The patient is on IV steroids. Chest x-ray showed some clearing. PAST MEDICAL HISTORY: Reviewed. REVIEW OF SYSTEMS: 14-point review is negative except as mentioned earlier. CURRENT MEDICATIONS: Reviewed include Pulmicort. Dose and rest of medications noted. PHYSICAL EXAMINATION: VITAL SIGNS: Pulse is 118, blood pressure 118/76, respirations 20. CHEST: A few scattered rhonchi and crackles, expiratory wheezing. ABDOMEN: Soft. NERVOUS SYSTEM: Nonfocal. LABORATORY DATA: WBC 15.7, rest of the labs are noted. EKG shows sinus tachycardia versus atrial flutter. Other labs are noted. ASSESSMENT: 1. Shortness of breath, possibly combination of chronic obstructive pulmonary disease acute exacerbation as well as congestive heart failure acute exacerbation, acute on chronic systolic dysfunction, ejection fraction 30% to 40%. 2. Acute on chronic renal failure, on hemodialysis. 3. Tachycardia, possibly atrial flutter versus junctional tachycardia. 4. Diabetes mellitus, type 2, uncontrolled with hyperglycemia. 5. Chronic kidney disease, stage 3 baseline. 6. Elevated plasma, lactic acid. 7. Multiple medical issues. RECOMMENDATIONS AND DISCUSSION: I recommend to continue current medications. Continue the bronchodilators, steroids. Continue with hemodialysis. The patient still has some tachycardia. We will continue to monitor. The patient has possibly atrial flutter, fibrillation with rapid ventricular rate with new onset per Cardiology. We will continue to monitor. Further recommendations to follow. MMODL / IJN: [id number] /
[2024-03-20 20:15] LABS: Glucose,Whole Blood 85 mg/dL (70-110)
[2024-03-20 23:13] LABS: Glucose,Whole Blood 145 mg/dL (70-110)
[2024-03-21 06:12] LABS: Glucose,Whole Blood 129 mg/dL (70-110)
[2024-03-21 08:35] LABS: Basophils % (A) 0 %; Eosinophils % (A) 0 %; HCT 43.6 % (39.0-53.0); HGB 13.6 gm/dL (13.0-17.5); Lymphocytes # (A) 0.4 k/uL (1.0-4.8); Lymphocytes % (A) 3 %; MCH 29.3 pg (25.0-35.0); MCHC 31.2 g/dL (31.0-37.0); MCV 93.7 fL (80.0-100.0); Mean Platelet Volume 7.4; Monocytes # (A) 0.2 k/uL (0-1.0); Monocytes % (A) 2 %; Neutrophils # (A) 12.8 k/uL (1.3-7.7); Neutrophils % (A) 95 %; Platelet Count 159 k/uL (150-450); RBC 4.66 m/uL (4.30-5.90); RDW 14.6 % (11.5-15.5); WBC 13.5 k/uL (3.8-10.6)
[2024-03-21 08:44] LABS: African American GFR (CKD) 24 (>60 ml/min/1.73 sqM); Anion Gap 10 mmol/L; Blood Urea Nitrogen 85 mg/dL (9-20); Calcium 8.2 mg/dL (8.4-10.2); Carbon Dioxide 25 mmol/L (22-30); Chloride 99 mmol/L (98-107); Glucose 128 mg/dL (74-99); Non-African American GFR(CKD) 21 (>60 ml/min/1.73 sqM); Potassium 4.1 mmol/L (3.5-5.1); Sodium 134 mmol/L (137-145)
[2024-03-21 11:29] LABS: Glucose,Whole Blood 135 mg/dL (70-110)
--- NOTE | 2024-03-21 13:39 | P.PN ---
Subjective Progress Note Date: 03/21/24 HISTORY OF PRESENTING ILLNESS This is a pleasant 71-year-old with past medical history significant for COPD, CAD with prior stenting, diabetes mellitus type 2, hypertension, hyperlipidemia, chronic kidney disease. He follows in the office with Dr Ramos. He states that he has been having increased shortness of breath over last week and a half. He also has been having some upper abdominal achiness. Denies any specific chest pain or pressure. He has not really had an appetite over last few weeks. He does have chronic kidney disease with creatinine more than the 2.8 range however creatinine increased up before this admission. Denies any recent Motrin. No significant lightheadedness or dizziness. No recent changes to his medications. Chest x-ray performed which shows pulmonary vascular con gestion. Patient also has diffuse wheezes on exam. EKG showing sinus rhythm with frequent PACs. Troponin 0.05, 0.05. Lactic acid 2.2. ProBNP 4860 03/15 Patient seen and examined. Patient went into atrial flutter with RVR with initial heart rates in the 140s and initially looked like SVT and therefore adenosine was given with no improvement. Patient was started on Cardizem drip with underlying atrial flutter waves. He does not have any history of atrial flutter. We discussed anticoagulation for stroke prevention patient is agreeable. We will place patient on Lovenox in case he needs possible dialysis catheter placement. Denies any chest pain or pressure. He has been somewhat symptomatic with the atrial flutter with more shortness of breath. 03/16 Patient seen and examined. Patient states that his breathing is okay. No chest pain and no chest pressure. He does complain of cough. No palpitations. Plan is to start patient on hemodialysis on Monday. He is on a heparin drip which will be continued until after that. Blood pressure 117/56, heart rate 89, pulse ox 97% on room air. Repeat blood work reveals WBC 15.5, hemoglobin 11.5. Sodium 131, potassium 4.9, BUN 113, creatinine 4.79. Reviewed records from the office. Patient has not had an echocardiogram since 2016 which revealed EF of 50%. Patient has not been in the office since July 2018. Patient is also been maintained on IV amiodarone. He is off Cardizem drip. 03/17 Patient seen and examined. Blood pressure 128/63, heart rate 81, pulse ox 95% on 2 L nasal cannula. Patient remains in afib, controlled heart rate in the 80s- 90s. Repeat blood work reveals WBC 15.2, hemoglobin 12.1. Renal function has worsened and consult added for Dr. Marshall for dialysis catheter insertion. Yesterday, amiodarone was switched from IV to oral 400 mg twice daily. Patient is maintained on heparin drip until after catheter placement completed. Patient states he feels well today, no shortness of breath. 03/18 Patient is going from the room for insertion of dialysis catheter with plan to start hemodialysis today. Blood pressure 144/59, heart rate 84, pulse ox 98% on room air. Patient is maintained on heparin drip. 03/19 Patient had insertion of dialysis catheter done yesterday and started hemodialysis. His heart rate started running in the 120s during dialysis yesterday and he did have a drop in his blood pressure. This morning his heart rate started running in the 120s during dialysis yesterday and he did have a drop in his blood pressure with dialysis. This morning he is running in the 120s, atrial fibrillation, blood pressure 101/74, pulse ox 99% on 2 L. Yesterday, Lopressor was increased to 25 mg twice daily. 03/20 Patient continues to be in atrial fibrillation with heart rates better contro lled in the low 100s. Repeat chest x-ray reveals moderate cardiomegaly with improving interstitium. Patient is scheduled for his third hemodialysis treatment today. He denies any new concerns today. No chest pain. No palpitations. Yesterday Toprol-XL was increased to 50 mg twice daily and he was continued on amiodarone 400 mg twice daily. Yesterday heparin drip was discontinued and started Eliquis. 03/21 Patient is undergoing hemodialysis now. Blood pressure 105/65. Heart rate is running in the low 100s and seems to be controlled, telemetry is atrial flutter at 94. Patient has been on amiodarone 400 mg twice daily and Lopressor 50 mg twice daily. He denies having any chest pain or palpitations. Repeat blood work reveals WBC 13.5, hemoglobin 13.6. BUN 85 and creatinine 2.75, potassium 4.1. PHYSICAL EXAMINATION Vital signs reviewed. CONSTITUTIONAL: No apparent distress. HEENT: Head is normocephalic. Pupils are equal, round. Sclerae anicteric. Mucous membran 111/74, pulse ox 99% on 2 L nasal cannula. Telemetry is atrial fibrillation.es of the mouth are moist. No JVD. No carotid bruit. CHEST EXAMINATION: Lungs are clear to auscultation. No chest wall tenderness is noted on palpation or with deep breathing. HEART EXAMINATION: Regular rate and rhythm. S1, S2 heard. No murmurs, gallops or rub. ABDOMEN: Soft, nontender. Positive bowel sounds. EXTREMITIES: 2+ peripheral pulses, no lower extremity edema and no calf tenderness. NEUROLOGIC EXAMINATION: Patient is awake, alert and oriented x3. ASSESSMENT Acute on chronic respiratory failure related to component of possible COPD exacerbation with audible wheezing plus component of heart failure/kidney failure Acute on chronic diastolic heart failure Acute kidney injury and chronic kidney disease stage IV, patient started on dialysis 03/18 Elevated troponins, related to chronic kidney disease, not indicative of isch emia or injury Atypical abdominal pain CAD with prior history of stenting Hypertension Hyperlipidemia Diabetes mellitus type 2 History of COPD Decreased appetite may be related to progressive CKD Typical atrial flutter/fibrillation, new onset with RVR PLAN Echo showing LV EF 35-40% which may also be in part related to tachy induced Continue Toprol 50 mg twice daily Decrease amiodarone to 200 mg twice daily Continue patient on Eliquis 2.5 mg twice daily Continue telemetry monitoring Plan is for medical therapy to optimize heart failure regime as able to tolerate. Patient will be considered for outpatient ischemic workup. Nurse practitioner note has been reviewed, I agree with documented findings and plan of care. Patient was seen and examined. Objective - Vital Signs Vital signs: Vital Signs Temp 98.1 F 03/21/24 03:35 Pulse 95 03/21/24 08:49 Resp 22 03/21/24 03:35 BP 154/85 03/21/24 03:35 Pulse Ox 94 L 03/21/24 03:35 FiO2 Intake & Output 03/20/24 03/21/24 03/21/24 18:59 06:59 18:59 Intake Total 754 118 Output Total 2275 650 Balance -1521 -650 118 Weight 122.3 kg Intake: Oral 354 118 Hemodialysis 400 Output: Urine 1425 650 Hemodialysis 850 Other: Voiding Method Indwelling Catheter Indwelling Catheter - Labs CBC & Chem 7: 03/21/24 07:40 03/21/24 07:40 Labs: Abnormal Lab Results - Last 24 Hours (Table) 03/20/24 03/20/24 03/20/24 Range/Units 11:13 12:22 23:11 WBC (3.8-10.6) k/uL Neutrophils # (1.3-7.7) k/uL Lymphocytes # (1.0-4.8) k/uL Sodium (137-145) mmol/L BUN 105 H* (9-20) mg/dL Creatinine 3.46 H (0.66-1.25) mg/dL Glucose (74-99) mg/dL POC Glucose (mg/dL) 113 H 145 H (70-110) mg/dL Calcium (8.4-10.2) mg/dL Phosphorus 5.9 H (2.5-4.5) mg/dL 03/21/24 03/21/24 03/21/24 Range/Units 06:10 07:40 07:40 WBC 13.5 H (3.8-10.6) k/uL Neutrophils # 12.8 H (1.3-7.7) k/uL Lymphocytes # 0.4 L (1.0-4.8) k/uL Sodium 134 L (137-145) mmol/L BUN 85 H (9-20) mg/dL Creatinine 2.75 H (0.66-1.25) mg/dL Glucose 128 H (74-99) mg/dL POC Glucose (mg/dL) 129 H (70-110) mg/dL Calcium 8.2 L (8.4-10.2) mg/dL Phosphorus (2.5-4.5) mg/dL
--- NOTE | 2024-03-21 13:44 | P.PN ---
Subjective Progress Note Date: 03/21/24 Patient is seen in follow-up for acute kidney injury on chronic kidney disease. Started on hemodialysis March 18, 2024. Has permacath. Has Reynolds catheter per urology. Denies chest pain or shortness of breath. Hemodynamically stable. Tolerated 1HD this morning. Vital signs are stable. General: No acute distress. HEENT: Head exam is unremarkable. LUNGS: Scattered wheezing. HEART: Tachycardic. ABDOMEN: Nontender. EXTREMITITES: No edema. Objective - Vital Signs Vital signs: Vital Signs Temp 97.8 F 03/21/24 09:44 Pulse 139 H 03/21/24 11:52 Resp 18 03/21/24 11:52 BP 118/78 03/21/24 11:52 Pulse Ox 96 03/21/24 11:52 FiO2 Intake & Output 03/20/24 03/21/24 03/21/24 18:59 06:59 18:59 Intake Total 754 118 Output Total 2275 650 Balance -1521 -650 118 Weight 122.3 kg Intake: Oral 354 118 Hemodialysis 400 Output: Urine 1425 650 Hemodialysis 850 Other: Voiding Method Indwelling Catheter Indwelling Catheter Indwelling Catheter - Labs CBC & Chem 7: 03/21/24 07:40 03/21/24 07:40 Labs: Abnormal Lab Results - Last 24 Hours (Table) 03/20/24 03/20/24 03/21/24 Range/Units 12:22 23:11 06:10 WBC (3.8-10.6) k/uL Neutrophils # (1.3-7.7) k/uL Lymphocytes # (1.0-4.8) k/uL Sodium (137-145) mmol/L BUN 105 H* (9-20) mg/dL Creatinine 3.46 H (0.66-1.25) mg/dL Glucose (74-99) mg/dL POC Glucose (mg/dL) 145 H 129 H (70-110) mg/dL Calcium (8.4-10.2) mg/dL Phosphorus 5.9 H (2.5-4.5) mg/dL 03/21/24 03/21/24 03/21/24 Range/Units 07:40 07:40 11:28 WBC 13.5 H (3.8-10.6) k/uL Neutrophils # 12.8 H (1.3-7.7) k/uL Lymphocytes # 0.4 L (1.0-4.8) k/uL Sodium 134 L (137-145) mmol/L BUN 85 H (9-20) mg/dL Creatinine 2.75 H (0.66-1.25) mg/dL Glucose 128 H (74-99) mg/dL POC Glucose (mg/dL) 135 H (70-110) mg/dL Calcium 8.2 L (8.4-10.2) mg/dL Phosphorus (2.5-4.5) mg/dL Assessment and Plan Assessment: 1. Acute kidney injury secondary to ATN secondary to cardiorenal syndrome and hemodynamic instability. Creatinine 5.11 dated March 18, 2024. Elevated BUN due to acute kidney injury as well as steroids. Nonoliguric. No hydronephrosis noted on kidney ultrasound. Right kidney atrophic. Started on hemodialysis March 18, 2024. Has permacath. 2. Chronic kidney disease stage IV secondary to diabetic kidney disease and nephrosclerosis with baseline creatinine 2.5-2.8. 3. Acute on chronic systolic CHF with ejection fraction of 35 to 40%. 4. Klebsiella UTI on antibiotics. 5. Urinary retention. Has Reynolds catheter. On Flomax. Urology following. 6. Volume overload. 7. Chronic kidney disease mineral bone disease maintained on calcitriol. 8. A-fib with RVR maintained on oral amiodarone and metoprolol. 9. Metabolic acidosis secondary to acute kidney injury. On oral bicarb. Stable. 10. Hyperphosphatemia secondary to acute kidney injury. On PhosLo. Phosphorus level 5.9 dated March 17, 2024. Plan: Third treatment of hemodialysis yesterday. Plan for short treatment today as he will be maintained on Monday schedule outpatient. Urine output improving, will hold HD tomorrow and monitor over weekend. Encouraged oral intake. Continue to monitor renal function and urine output. [facility] to set up outpatient hemodialysis. Monitor for renal recovery outpatient.
[2024-03-21 16:37] LABS: Glucose,Whole Blood 309 mg/dL (70-110)
--- NOTE | 2024-03-21 16:52 | P.PN ---
Subjective Progress Note Date: 03/21/24 Patient is an 78-year-old white male with past medical history significant for COPD, obstructive sleep apnea, coronary artery disease, hypertension, hyperlipidemia, chronic kidney disease, BPH and previous TURP. His primary care provider is Dr. Isbell. Did follow with Dr. Delacruz in the pulmonary office in the past, but has not been back in some time. He is known to have moderate COPD. Patient presented to emergency room yesterday complaining of about 4 weeks of worsening shortness of breath. Accompanied by chest tightness, wheezing, cough with green phlegm. Chest x-ray on arrival showed low lung volumes and general hazy appearance, atelectasis versus pulmonary edema. Also, noted to be more confused at home. ABG was drawn in the emergency department, with a PaO2 of 93, pCO2 of 37, pH of 7.36. He is also has had issues with frequent urination and incomplete voiding. He has history of urinary retention and underwent previous TURP in the past. Denies any burning or dysuria. Denies suprapubic pain. Denies fevers. Urinalysis positive for leukocyte esterase and bacteria. CBC: WBC count 12.1, hemoglobin 12.8, hematocrit 40.5, platelets 274. CMP: Sodium 143, potassium 4.2, chloride 110, serum bicarb 20, BUN 87, creatinine 4.44, glucose 72. Does have an indwelling urinary catheter. lactic 2. LFTs not elevated. Troponin 0.047. NT proBNP 4860. Negative for influenza, RSV, COVID. He is currently sitting up at the edge of the bed, reportedly just got up to use the bathroom. Seems to be oriented. He is on 2 L/min nasal cannula. SpO2 is 98%. He has audible wheezing. Vital signs are stable. The patient is seen today March 15, 2024 in follow-up on the selective care unit. He is currently sitting up in bed. Awake and alert in no acute distress. He is maintaining good O2 saturations in the 90s on 3 L/min per nasal cannula. No IV fluids. He is feeling better today compared to yesterday. Still somewhat bronchospastic and wheezing. He is continued on DuoNeb inhalations, Pulmicort and Perforomist inhalations, IV Solu-Medrol. He is on antibiotics in the form of ceftriaxone. Currently on a Cardizem drip at 10 mg/h. He did develop atrial fibrillation with a rapid ventricular response today. Urine culture positive for gram-negative bacilli. Blood culture revealing no growth. Sputum culture revealing no growth. White count 16.7. Hemoglobin 11.7. Platelets 212. Sodium 134. Potassium 5.0. Bicarb 20. BUN 94. Creatinine 4.88. Glucose 300. Procalcitonin 0.26. The patient is seen today March 16, 2024 in follow-up on the selective care unit. He is currently resting in bed. Awake and alert in no acute distress. He is maintaining O2 saturations in the 90s on room air. He is continued on a heparin drip. Continue on amiodarone drip at 0.5 mg/min. He is continued on DuoNeb inhalations, Pulmicort and Perforomist inhalations, Solu-Medrol at 40 mg every 8 hours. The patient is still somewhat bronchospastic and wheezing. He remains in atrial fibrillation with a better controlled ventricular response. He is on antibiotics in the form of ceftriaxone. Urine culture was positive for Klebsiella pneumoniae. Sputum culture revealed no growth. Blood cultures revealed no growth. White count 15.5. Hemoglobin 11.5. Platelets 212. Sodium 131. Potassium 4.9. Bicarb 17. BUN 113. Creatinine 4.79. Glucose 303. He has been initiated on sodium bicarb tablets. Current urine output 450 mL. The patient is seen today March 17, 2024 in follow-up on the selective care unit. He is currently resting comfortably in bed. Awake and alert in no acute distress. Maintaining good O2 saturations in the 90s on 2 L/min per nasal cannula. He remains on a heparin drip. He remains on DuoNeb inhalations, Pulmicort and Perforomist inhalations, Solu-Medrol. Antibiotics in the form of ceftriaxone. White count 15.2. Hemoglobin 12.1. Platelets 200,000. Sodium 136. Potassium 4.5. Bicarb 19. BUN 119. Creatinine 5.47. Glucose 176. Ur ine culture was positive for Klebsiella pneumoniae. Blood cultures revealed no growth. Sputum culture revealed no growth. Nephrology is following for possible renal replacement therapy. Chest x-ray reveals mild cardiomegaly and mild pulmonary vascular congestion. On 03/18/2024, the patient is being seen for a follow-up. The patient is known to have COPD, obstructive sleep apnea, coronary disease, hypertension hyperlipidemia chronic kidney disease. The patient also suffers from BPH and he has undergone previous TURP. The patient is not currently undergoing hemodialysis. He is on room air oxygen. Main complaint is some limited residual cough. Patient also being treated for an underlying urine tract infection with Klebsiella and the patient is currently on IV Rocephin. No other specific complaints. White cell count of 16.6 with a hemoglobin 12.8 and a platelet count of 215. The BUN levels at 137 with a potassium level of 5.1 and a sodium level is at 137 and a potassium level is at 4.1. Free T4 is at 0.9 with a TSH of 0.38. The patient remains on DuoNeb updrafts. The patient is on Levemir insulin. The patient is on oral bicarb. The urine output remains active and the patient is producing adequate amount of urine output and remains in negative fluid balance. Nephrology is on the case for now. Remains on bronchodilators. Remains on steroids. The chest x-ray that was done on 03/17/2024 showed mild cardiomegaly and pulm vessel congestion and some atelectatic change in lung base bilaterally. 03/19/2024, I am seeing the patient for a follow-up. Patient is resting comfortably in bed. The patient is currently on room air oxygen. Denies having any significant shortness of breath at rest. No chest pain. No angina or palpitations. The patient underwent hemodialysis yesterday. His current oxygenation stable on room air oxygen. Meanwhile, the patient was noted to have some increased tachycardia with atrial fibrillation. Cardiology on the case. The patient is currently on metoprolol and the dose was increased up to 50 mg twice a day. Will monitor his blood pressure response. Continue bronchodilators. Continue steroids. Continue Levemir insulin 40 units every 12 hours and sliding scale coverage. Continue IV Rocephin. The patient's white cell count is at 15.7 with a hemoglobin of 13.1 and a platelet count of 186. BUN is 117 with a creatinine of 3.84 and sodium levels at 135. Patient is being seen by cardiology and nephrology. The patient has mentioned sustaining acute kidney injury on top of chronic kidney disease. Started on hemodialysis on 03/18/2024. Hemodynamically stable. Reynolds catheter is in place. A second treatment with dialysis to be done today and the third tomorrow. His chest x- ray from today shows cardiomegaly and mild interstitial prominence nasal congestion heart failure. On 03/20/2024, the patient is being seen for a follow-up. The patient is stable on room air oxygen. He is undergoing hemodialysis today. Remains on bronchodilators. Remains on Solu-Medrol and the patient has been weaned down to 40 mg IV every 12 hours. Limited cough and congestion. Remains on DuoNeb AND remains on Perforomist and Pulmicort nebulized treatment twice a day. No chest pain. Volume status is improving. The BUN is at 105 with a creatinine of 3.46 and a sodium level is 138 and a potassium level is at 3.9. Hematologic profile from 03/19/2024 showed a white cell count of 15.7 and hemoglobin of 15.1. The patient's urine culture is positive for Klebsiella pneumonia and this urine culture was collected on 03/13/2024. On 03/21/2024, the patient is undergoing hemodialysis. Resting comfortably in bed on room air oxygen. No specific complaints. No significant events overnight. The patient has an underlying A-fib/flutter. He is currently on metoprolol 50 mg p.o. twice daily and amiodarone 4 mg p.o. twice a day. No angina. No palpitation. No altered mentation. Labs from today shows a white cell count of 13 with a hemoglobin of 15 and a platelet count of 159. BUN is 85 with a creatinine of 2.75 and a sodium level is 134. Remains on DuoNeb updrafts 4 times a day in addition to performance of Pulmicort nebulized treatments twice a day. Solu-Medrol was weaned down to 40 mg every 12 hours. Rest of the me dications remain unchanged. Objective - Vital Signs Vital signs: Vital Signs Temp 97.8 F 03/21/24 09:44 Pulse 59 L 03/21/24 09:46 Resp 18 03/21/24 09:46 BP 107/62 03/21/24 09:44 Pulse Ox 97 03/21/24 09:44 FiO2 Intake & Output 03/20/24 03/21/24 03/21/24 18:59 06:59 18:59 Intake Total 754 118 Output Total 4895 650 Balance -1521 -650 118 Weight 122.3 kg Intake: Oral 354 118 Hemodialysis 400 Output: Urine 1425 650 Hemodialysis 850 Other: Voiding Method Indwelling Catheter Indwelling Catheter Indwelling Catheter - Exam GENERAL EXAM: Alert, pleasant 78-year-old male, on room air oxygen, comfortable in no acute distress. HEAD: Normocephalic and atraumatic EYES: Normal reaction of pupils, equal size. NOSE: Clear with pink turbinates. THROAT: No erythema or exudates. NECK: No masses, no JVD. CHEST: No chest wall deformity. LUNGS: Equal air entry with bilateral expiratory wheezes. CVS: S1 and S2 normal with no audible murmur, regular rhythm. No extra heart sounds ABDOMEN: No hepatosplenomegaly, active bowel sounds, no guarding or rigidity. SPINE: No scoliosis or deformity SKIN: No rashes CENTRAL NERVOUS SYSTEM: No focal deficits, tone is normal in all 4 extremities. EXTREMITIES: There is no peripheral edema, clubbing, or cyanosis. Peripheral pulses are intact. - Labs CBC & Chem 7: 03/21/24 07:40 03/21/24 07:40 Labs: Abnormal Lab Results - Last 24 Hours (Table) 03/20/24 03/20/24 03/20/24 Range/Units 11:13 12:22 23:11 WBC (3.8-10.6) k/uL Neutrophils # (1.3-7.7) k/uL Lymphocytes # (1.0-4.8) k/uL Sodium (137-145) mmol/L BUN 105 H* (9-20) mg/dL Creatinine 3.46 H (0.66-1.25) mg/dL Glucose (74-99) mg/dL POC Glucose (mg/dL) 113 H 145 H (70-110) mg/dL Calcium (8.4-10.2) mg/dL Phosphorus 5.9 H (2.5-4.5) mg/dL 03/21/24 03/21/24 03/21/24 Range/Units 06:10 07:40 07:40 WBC 13.5 H (3.8-10.6) k/uL Neutrophils # 12.8 H (1.3-7.7) k/uL Lymphocytes # 0.4 L (1.0-4.8) k/uL Sodium 134 L (137-145) mmol/L BUN 85 H (9-20) mg/dL Creatinine 2.75 H (0.66-1.25) mg/dL Glucose 128 H (74-99) mg/dL POC Glucose (mg/dL) 129 H (70-110) mg/dL Calcium 8.2 L (8.4-10.2) mg/dL Phosphorus (2.5-4.5) mg/dL Assessment and Plan Plan: Acute hypoxemic respiratory failure, recovered and on room air, likely secondary to acute COPD exacerbation and a systolic CHF exacerbation. Favor CHF with fluid overload in the setting of an acute on chronic kidney failure. The patient is currently undergoing hemodialysis. The chest x-ray on arrival showed low lung volumes and general hazy appearance, atelectasis versus pulmonary edema. NT proBNP was elevated at 4860. Negative for influenza, RSV, COVID. Noted the patient is currently on room air oxygen. Repeat chest x-ray from 03/19/2024 shows cardiomegaly with mild pulm venous congestion. No dyspnea at rest. Atrial fibrillation with a rapid ventricular response, and the most recent EKG from today is consistent with flutter. The patient is on amiodarone. The metoprolol has been increased to 50 mg twice a day. Anticoagulation as per cardiology. Acute exacerbation of chronic systolic congestive heart failure. Ejection fraction 35 to 40%. Global hypokinesis Acute on chronic kidney disease, possibly postobstructive secondary to retention, patient has indwelling urinary catheter placed, producing adequate amount of urine output and the patient is also being dialyzed. Nephrology on the case. Hemodialysis was started on 03/18/2024. Currently undergoing hemod ialysis. Nephrology on the case. Urinary tract infection secondary to Klebsiella pneumoniae, currently on ceftriaxone, completed the course of antibiotics. Elevated troponin, possibly supply/demand related Chronic kidney disease stage IV History of BPH with previous TURP History of hyperlipidemia History of hypertension History of diabetes mellitus History of coronary artery disease with previous PCI/stent Moderate chronic obstructive pulmonary disease Obstructive sleep apnea Obesity, with a BMI of 38.9 kg/m Plan: Undergoing hemodialysis today Patient is currently on room air oxygen Shortness of breath is improved and the patient is some residual cough continues to be on bronchodilators and steroids. Overall, no major changes compared to yesterday. Management of atrial flutter per cardiology. The patient is currently on amiodarone and metoprolol Continue renal replacement therapy per nephrology Continue DuoNeb, Pulmicort and Perforomist inhalations Continue Solu-Medrol, 40 mg every 12 hours. Remains on ceftriaxone for an underlying Klebsiella related urinary tract infection, completed the course of antibiotics. Keep Reynolsd catheter in place, producing adequate amount of urine output. Hemodialysis today. Increase his activity as tolerated We will continue to follow
--- NOTE | 2024-03-21 17:43 | PN ---
PROGRESS NOTE DATE OF SERVICE: 03/21/2024 SUBJECTIVE: This is an 78-year-old gentleman, who was admitted with a combination of COPD and CHF exacerbation, started on newly onset hemodialysis. The patient seems to be improving significantly. Most recent chest x-ray shows fluid accumulation. PHYSICAL EXAMINATION: VITAL SIGNS: Pulse is 139, blood pressure 118/70, and respirations 18. CHEST: Clear to auscultation. CARDIOVASCULAR: S1 and S2. RESPIRATIONS: Few scattered rhonchi. ABDOMEN: Soft. NERVOUS SYSTEM: Nonfocal. LABORATORY DATA: Creatinine 2.75. ASSESSMENT: 1. Shortness of breath, possibly combination of chronic obstructive pulmonary disease acute exacerbation as well as congestive heart failure acute exacerbation with acute on chronic systolic dysfunction, ejection fraction 30% to 40%. 2. Acute on chronic renal failure, newly started hemodialysis. 3. Tachycardia, possibly atrial flutter versus paroxysmal atrial fibrillation. 4. Diabetes mellitus type 2, uncontrolled with hyperglycemia. 5. Chronic kidney disease stage 3, baseline. 6. Elevated plasma, lactic acid. 7. Multiple medical issues. RECOMMENDATIONS AND DISCUSSION: I recommend to continue current medical management and symptomatic treatment. I would recommend to continue the current medications. The patient is on Lopressor 50 b.i.d. Closely follow with Cardiology. The patient is also on amiodarone. Guarded prognosis. Further recommendations to follow. MMODL / IJN: [id number] /
[2024-03-21 20:11] LABS: Glucose,Whole Blood 189 mg/dL (70-110)
[2024-03-22] MEDS: DILTIAZEM 125 MG in SODIUM CHLORIDE 0.9% 100 ML IV SCH (04:18)
[2024-03-22] MEDS: DEXTROSE 50% SYRINGE 50 ML IVP PRN (06:22)
[2024-03-22 06:24] LABS: Glucose,Whole Blood 29 mg/dL (70-110)
[2024-03-22 06:24] LABS: Glucose,Whole Blood 28 mg/dL (70-110)
[2024-03-22 06:36] LABS: Glucose,Whole Blood 176 mg/dL (70-110)
[2024-03-22 07:58] LABS: African American GFR (CKD) 23 (>60 ml/min/1.73 sqM); Anion Gap 9 mmol/L; Blood Urea Nitrogen 74 mg/dL (9-20); Calcium 8.2 mg/dL (8.4-10.2); Carbon Dioxide 24 mmol/L (22-30); Chloride 100 mmol/L (98-107); Glucose 126 mg/dL (74-99); Non-African American GFR(CKD) 20 (>60 ml/min/1.73 sqM); Potassium 3.4 mmol/L (3.5-5.1); Sodium 133 mmol/L (137-145)
[2024-03-22] MEDS: AMIODARONE 200 MG TAB PO SCH (09:26)
[2024-03-22 12:02] LABS: Glucose,Whole Blood 146 mg/dL (70-110)
[2024-03-22] MEDS: predniSONE 20 MG TAB PO SCH (12:14)
[2024-03-22] MEDS: METOPROLOL TARTRATE 50 MG TAB PO STA (13:47)
--- NOTE | 2024-03-22 14:19 | P.PN ---
Subjective Progress Note Date: 03/22/24 Patient is seen in follow-up for acute kidney injury on chronic kidney disease. Started on hemodialysis March 18, 2024. Has permacath. Has Reynolds catheter per urology. Denies chest pain or shortness of breath. Hemodynamically stable. No new complaints. Vital signs are stable. General: No acute distress. HEENT: Head exam is unremarkable. LUNGS: Scattered wheezing. HEART: Tachycardic. ABDOMEN: Nontender. EXTREMITITES: No edema. Objective - Vital Signs Vital signs: Vital Signs Temp 97.6 F 03/21/24 20:20 Pulse 64 03/22/24 12:30 Resp 16 03/22/24 08:00 BP 112/59 03/22/24 08:00 Pulse Ox 100 03/22/24 08:00 FiO2 Intake & Output 03/21/24 03/22/24 03/22/24 18:59 06:59 18:59 Intake Total 876 240 Output Total 1400 400 Balance -524 240 -400 Weight 117.5 kg Intake: Oral 476 240 Hemodialysis 400 Output: Urine 400 Hemodialysis 1400 Other: Voiding Method Indwelling Catheter Indwelling Catheter Indwelling Catheter # Bowel Movements 1 - Labs CBC & Chem 7: 03/21/24 07:40 03/22/24 06:43 Labs: Abnormal Lab Results - Last 24 Hours (Table) 03/21/24 03/21/24 03/22/24 Range/Units 16:36 20:09 06:17 Sodium (137-145) mmol/L Potassium (3.5-5.1) mmol/L BUN (9-20) mg/dL Creatinine (0.66-1.25) mg/dL Glucose (74-99) mg/dL POC Glucose (mg/dL) 309 H 189 H 28 L* (70-110) mg/dL Calcium (8.4-10.2) mg/dL 03/22/24 03/22/24 03/22/24 Range/Units 06:18 06:35 06:43 Sodium 133 L (137-145) mmol/L Potassium 3.4 L (3.5-5.1) mmol/L BUN 74 H (9-20) mg/dL Creatinine 2.86 H (0.66-1.25) mg/dL Glucose 126 H (74-99) mg/dL POC Glucose (mg/dL) 29 L* 176 H (70-110) mg/dL Calcium 8.2 L (8.4-10.2) mg/dL 03/22/24 Range/Units 12:00 Sodium (137-145) mmol/L Potassium (3.5-5.1) mmol/L BUN (9-20) mg/dL Creatinine (0.66-1.25) mg/dL Glucose (74-99) mg/dL POC Glucose (mg/dL) 146 H (70-110) mg/dL Calcium (8.4-10.2) mg/dL Assessment and Plan Assessment: 1. Acute kidney injury secondary to ATN secondary to cardiorenal syndrome and hemodynamic instability. Creatinine 5.11 dated March 18, 2024. Elevated BUN due to acute kidney injury as well as steroids. Nonoliguric. No hydronephrosis no kelly on kidney ultrasound. Right kidney atrophic. Started on hemodialysis March 18, 2024. Has permacath. 2. Chronic kidney disease stage IV secondary to diabetic kidney disease and nephrosclerosis with baseline creatinine 2.5-2.8. 3. Acute on chronic systolic CHF with ejection fraction of 35 to 40%. 4. Klebsiella UTI on antibiotics. 5. Urinary retention. Has Reynolds catheter. On Flomax. Urology following. 6. Volume overload. 7. Chronic kidney disease mineral bone disease maintained on calcitriol. 8. A-fib with RVR maintained on oral amiodarone and metoprolol. 9. Metabolic acidosis secondary to acute kidney injury. On oral bicarb. Stable. 10. Hyperphosphatemia secondary to acute kidney injury. On PhosLo. Phosphorus level 5.9 dated March 17, 2024. Plan: HD now on TTS schedule, next treatment tomorrow. Urine output improving, will hold HD tomorrow and monitor over weekend. Encouraged oral intake. Continue to monitor renal function and urine output. visual presentation manager to set up outpatient hemodialysis. Monitor for renal recovery outpatient.
--- NOTE | 2024-03-22 14:27 | P.PN ---
Subjective Progress Note Date: 03/22/24 Patient is an 78-year-old white male with past medical history significant for COPD, obstructive sleep apnea, coronary artery disease, hypertension, hyperlipidemia, chronic kidney disease, BPH and previous TURP. His primary care provider is Dr. Isbell. Did follow with Dr. Delacruz in the pulmonary office in the past, but has not been back in some time. He is known to have moderate COPD. Patient presented to emergency room yesterday complaining of about 4 weeks of worsening shortness of breath. Accompanied by chest tightness, wheezing, cough with green phlegm. Chest x-ray on arrival showed low lung volumes and general hazy appearance, atelectasis versus pulmonary edema. Also, noted to be more confused at home. ABG was drawn in the emergency department, with a PaO2 of 93, pCO2 of 37, pH of 7.36. He is also has had issues with frequent urination and incomplete voiding. He has history of urinary retention and underwent previous TURP in the past. Denies any burning or dysuria. Denies suprapubic pain. Denies fevers. Urinalysis positive for leukocyte esterase and bacteria. CBC: WBC count 12.1, hemoglobin 12.8, hematocrit 40.5, platelets 274. CMP: Sodium 143, potassium 4.2, chloride 110, serum bicarb 20, BUN 87, creatinine 4.44, glucose 72. Does have an indwelling urinary catheter. lactic 2. LFTs not elevated. Troponin 0.047. NT proBNP 4860. Negative for influenza, RSV, COVID. He is currently sitting up at the edge of the bed, reportedly just got up to use the bathroom. Seems to be oriented. He is on 2 L/min nasal cannula. SpO2 is 98%. He has audible wheezing. Vital signs are stable. The patient is seen today March 15, 2024 in follow-up on the selective care unit. He is currently sitting up in bed. Awake and alert in no acute distress. He is maintaining good O2 saturations in the 90s on 3 L/min per nasal cannula. No IV fluids. He is feeling better today compared to yesterday. Still somewhat bronchospastic and wheezing. He is continued on DuoNeb inhalations, Pulmicort and Perforomist inhalations, IV Solu-Medrol. He is on antibiotics in the form of ceftriaxone. Currently on a Cardizem drip at 10 mg/h. He did develop atrial fibrillation with a rapid ventricular response today. Urine culture positive for gram-negative bacilli. Blood culture revealing no growth. Sputum culture revealing no growth. White count 16.7. Hemoglobin 11.7. Platelets 212. Sodium 134. Potassium 5.0. Bicarb 20. BUN 94. Creatinine 4.88. Glucose 300. Procalcitonin 0.26. The patient is seen today March 16, 2024 in follow-up on the selective care unit. He is currently resting in bed. Awake and alert in no acute distress. He is maintaining O2 saturations in the 90s on room air. He is continued on a heparin drip. Continue on amiodarone drip at 0.5 mg/min. He is continued on DuoNeb inhalations, Pulmicort and Perforomist inhalations, Solu-Medrol at 40 mg every 8 hours. The patient is still somewhat bronchospastic and wheezing. He remains in atrial fibrillation with a better controlled ventricular response. He is on antibiotics in the form of ceftriaxone. Urine culture was positive for Klebsiella pneumoniae. Sputum culture revealed no growth. Blood cultures revealed no growth. White count 15.5. Hemoglobin 11.5. Platelets 212. Sodium 131. Potassium 4.9. Bicarb 17. BUN 113. Creatinine 4.79. Glucose 303. He has been initiated on sodium bicarb tablets. Current urine output 450 mL. The patient is seen today March 17, 2024 in follow-up on the selective care unit. He is currently resting comfortably in bed. Awake and alert in no acute distress. Maintaining good O2 saturations in the 90s on 2 L/min per nasal cannula. He remains on a heparin drip. He remains on DuoNeb inhalations, Pulmicort and Perforomist inhalations, Solu-Medrol. Antibiotics in the form of ceftriaxone. White count 15.2. Hemoglobin 12.1. Platelets 200,000. Sodium 136. Potassium 4.5. Bicarb 19. BUN 119. Creatinine 5.47. Glucose 176. Ur ine culture was positive for Klebsiella pneumoniae. Blood cultures revealed no growth. Sputum culture revealed no growth. Nephrology is following for possible renal replacement therapy. Chest x-ray reveals mild cardiomegaly and mild pulmonary vascular congestion. On 03/18/2024, the patient is being seen for a follow-up. The patient is known to have COPD, obstructive sleep apnea, coronary disease, hypertension hyperlipidemia chronic kidney disease. The patient also suffers from BPH and he has undergone previous TURP. The patient is not currently undergoing hemodialysis. He is on room air oxygen. Main complaint is some limited residual cough. Patient also being treated for an underlying urine tract infection with Klebsiella and the patient is currently on IV Rocephin. No other specific complaints. White cell count of 16.6 with a hemoglobin 12.8 and a platelet count of 215. The BUN levels at 137 with a potassium level of 5.1 and a sodium level is at 137 and a potassium level is at 4.1. Free T4 is at 0.9 with a TSH of 0.38. The patient remains on DuoNeb updrafts. The patient is on Levemir insulin. The patient is on oral bicarb. The urine output remains active and the patient is producing adequate amount of urine output and remains in negative fluid balance. Nephrology is on the case for now. Remains on bronchodilators. Remains on steroids. The chest x-ray that was done on 03/17/2024 showed mild cardiomegaly and pulm vessel congestion and some atelectatic change in lung base bilaterally. 03/19/2024, I am seeing the patient for a follow-up. Patient is resting comfortably in bed. The patient is currently on room air oxygen. Denies having any significant shortness of breath at rest. No chest pain. No angina or palpitations. The patient underwent hemodialysis yesterday. His current oxygenation stable on room air oxygen. Meanwhile, the patient was noted to have some increased tachycardia with atrial fibrillation. Cardiology on the case. The patient is currently on metoprolol and the dose was increased up to 50 mg twice a day. Will monitor his blood pressure response. Continue bronchodilators. Continue steroids. Continue Levemir insulin 40 units every 12 hours and sliding scale coverage. Continue IV Rocephin. The patient's white cell count is at 15.7 with a hemoglobin of 13.1 and a platelet count of 186. BUN is 117 with a creatinine of 3.84 and sodium levels at 135. Patient is being seen by cardiology and nephrology. The patient has mentioned sustaining acute kidney injury on top of chronic kidney disease. Started on hemodialysis on 03/18/2024. Hemodynamically stable. Reynolds catheter is in place. A second treatment with dialysis to be done today and the third tomorrow. His chest x- ray from today shows cardiomegaly and mild interstitial prominence nasal congestion heart failure. On 03/20/2024, the patient is being seen for a follow-up. The patient is stable on room air oxygen. He is undergoing hemodialysis today. Remains on bronchodilators. Remains on Solu-Medrol and the patient has been weaned down to 40 mg IV every 12 hours. Limited cough and congestion. Remains on DuoNeb AND remains on Perforomist and Pulmicort nebulized treatment twice a day. No chest pain. Volume status is improving. The BUN is at 105 with a creatinine of 3.46 and a sodium level is 138 and a potassium level is at 3.9. Hematologic profile from 03/19/2024 showed a white cell count of 15.7 and hemoglobin of 15.1. The patient's urine culture is positive for Klebsiella pneumonia and this urine culture was collected on 03/13/2024. On 03/21/2024, the patient is undergoing hemodialysis. Resting comfortably in bed on room air oxygen. No specific complaints. No significant events overnight. The patient has an underlying A-fib/flutter. He is currently on metoprolol 50 mg p.o. twice daily and amiodarone 4 mg p.o. twice a day. No angina. No palpitation. No altered mentation. Labs from today shows a white cell count of 13 with a hemoglobin of 15 and a platelet count of 159. BUN is 85 with a creatinine of 2.75 and a sodium level is 134. Remains on DuoNeb updrafts 4 times a day in addition to performance of Pulmicort nebulized treatments twice a day. Solu-Medrol was weaned down to 40 mg every 12 hours. Rest of the me dications remain unchanged. On 03/22/2024, the patient is being seen for a follow-up. Calm and comfortable. No specific complaints. No plans for hemodialysis today. The patient denies having significant shortness of breath. No chest pain. He remains on room air oxygen. BUN 74 with a creatinine of 2.8. Potassium is at 3.4. Remains on DuoNeb treatments on the clock. Remains on IV Solu-Medrol and the patient is going to be started on prednisone burst taper. Remains on Levemir insulin 40 u nits twice a day. Remains on anticoagulation with Eliquis 2.5 mg p.o. twice a day. Objective - Vital Signs Vital signs: Vital Signs Temp 97.6 F 03/21/24 20:20 Pulse 68 03/22/24 09:25 Resp 20 03/22/24 03:57 BP 138/95 03/22/24 03:57 Pulse Ox 95 03/22/24 03:57 FiO2 Intake & Output 03/21/24 03/22/24 03/22/24 18:59 06:59 18:59 Intake Total 876 240 Output Total 1400 400 Balance -524 240 -400 Weight 117.5 kg Intake: Oral 476 240 Hemodialysis 400 Output: Urine 400 Hemodialysis 1400 Other: Voiding Method Indwelling Catheter Indwelling Catheter # Bowel Movements 1 - Exam GENERAL EXAM: Alert, pleasant 78-year-old male, on room air oxygen, comfortable in no acute distress. HEAD: Normocephalic and atraumatic EYES: Normal reaction of pupils, equal size. NOSE: Clear with pink turbinates. THROAT: No erythema or exudates. NECK: No masses, no JVD. CHEST: No chest wall deformity. LUNGS: Equal air entry with bilateral expiratory wheezes. CVS: S1 and S2 normal with no audible murmur, regular rhythm. No extra heart sounds ABDOMEN: No hepatosplenomegaly, active bowel sounds, no guarding or rigidity. SPINE: No scoliosis or deformity SKIN: No rashes CENTRAL NERVOUS SYSTEM: No focal deficits, tone is normal in all 4 extremities. EXTREMITIES: There is no peripheral edema, clubbing, or cyanosis. Peripheral pulses are intact. - Labs CBC & Chem 7: 03/21/24 07:40 03/22/24 06:43 Labs: Abnormal Lab Results - Last 24 Hours (Table) 03/21/24 03/21/24 03/21/24 Range/Units 11:28 16:36 20:09 Sodium (137-145) mmol/L Potassium (3.5-5.1) mmol/L BUN (9-20) mg/dL Creatinine (0.66-1.25) mg/dL Glucose (74-99) mg/dL POC Glucose (mg/dL) 135 H 309 H 189 H (70-110) mg/dL Calcium (8.4-10.2) mg/dL 07/02/0803/22/24 03/22/24 Range/Units 06:17 06:18 06:35 Sodium (137-145) mmol/L Potassium (3.5-5.1) mmol/L BUN (9-20) mg/dL Creatinine (0.66-1.25) mg/dL Glucose (74-99) mg/dL POC Glucose (mg/dL) 28 L* 29 L* 176 H (70-110) mg/dL Calcium (8.4-10.2) mg/dL 03/22/24 Range/Units 06:43 Sodium 133 L (137-145) mmol/L Potassium 3.4 L (3.5-5.1) mmol/L BUN 74 H (9-20) mg/dL Creatinine 2.86 H (0.66-1.25) mg/dL Glucose 126 H (74-99) mg/dL POC Glucose (mg/dL) (70-110) mg/dL Calcium 8.2 L (8.4-10.2) mg/dL Assessment and Plan Plan: Acute hypoxemic respiratory failure, recovered and on room air, likely secondary to acute COPD exacerbation and a systolic CHF exacerbation. Favor CHF with fluid overload in the setting of an acute on chronic kidney failure. The patient is currently undergoing hemodialysis. The chest x-ray on arrival showed low lung volumes and general hazy appearance, atelectasis versus pulmonary edema . NT proBNP was elevated at 4860. Negative for influenza, RSV, COVID. Noted the patient is currently on room air oxygen. Repeat chest x-ray from 03/19/2024 shows cardiomegaly with mild pulm venous congestion. No dyspnea at rest. Atrial fibrillation with a rapid ventricular response, and the most recent EKG from today is consistent with flutter. The patient is on amiodarone. The metoprolol has been increased to 50 mg twice a day. Anticoagulation as per cardiology. Acute exacerbation of chronic systolic congestive heart failure. Ejection fraction 35 to 40%. Global hypokinesis Acute on chronic kidney disease, possibly postobstructive secondary to retention, patient has indwelling urinary catheter placed, producing adequate amount of urine output and the patient is also being dialyzed. Nephrology on the case. Hemodialysis was started on 03/18/2024. Currently undergoing hemodialysis. Nephrology on the case. Urinary tract infection secondary to Klebsiella pneumoniae, currently on ceftriaxone, completed the course of antibiotics. Elevated troponin, possibly supply/demand related Chronic kidney disease stage IV History of BPH with previous TURP History of hyperlipidemia History of hypertension History of diabetes mellitus History of coronary artery disease with previous PCI/stent Moderate chronic obstructive pulmonary disease Obstructive sleep apnea Obesity, with a BMI of 38.9 kg/m Plan: Last hemodialysis session was yesterday Patient is currently on room air oxygen Shortness of breath is improved and the patient is some residual cough continues to be on bronchodilators and steroids. The patient will be taken off the IV Solu-Medrol and started on prednisone burst taper starting with 40 mg Management of atrial flutter per cardiology. The patient is currently on amiodarone and metoprolol Continue renal replacement therapy per nephrology Continue DuoNeb, Pulmicort and Perforomist inhalations Keep Reynolds catheter in place, producing adequate amount of urine output. Hemodialysis today. Increase his activity as tolerated We will continue to follow
--- NOTE | 2024-03-22 15:06 | P.PN ---
Subjective Progress Note Date: 03/22/24 HISTORY OF PRESENTING ILLNESS This is a pleasant 71-year-old with past medical history significant for COPD, CAD with prior stenting, diabetes mellitus type 2, hypertension, hyperlipidemia, chronic kidney disease. He follows in the office with Dr Ramos. He states that he has been having increased shortness of breath over last week and a half. He also has been having some upper abdominal achiness. Denies any specific chest pain or pressure. He has not really had an appetite over last few weeks. He does have chronic kidney disease with creatinine more than the 2.8 range however creatinine increased up before this admission. Denies any recent Motrin. No significant lightheadedness or dizziness. No recent changes to his medications. Chest x-ray performed which shows pulmonary vascular con gestion. Patient also has diffuse wheezes on exam. EKG showing sinus rhythm with frequent PACs. Troponin 0.05, 0.05. Lactic acid 2.2. ProBNP 4860 03/15 Patient seen and examined. Patient went into atrial flutter with RVR with initial heart rates in the 140s and initially looked like SVT and therefore adenosine was given with no improvement. Patient was started on Cardizem drip with underlying atrial flutter waves. He does not have any history of atrial flutter. We discussed anticoagulation for stroke prevention patient is agreeable. We will place patient on Lovenox in case he needs possible dialysis catheter placement. Denies any chest pain or pressure. He has been somewhat symptomatic with the atrial flutter with more shortness of breath. 03/16 Patient seen and examined. Patient states that his breathing is okay. No chest pain and no chest pressure. He does complain of cough. No palpitations. Plan is to start patient on hemodialysis on Monday. He is on a heparin drip which will be continued until after that. Blood pressure 117/56, heart rate 89, pulse ox 97% on room air. Repeat blood work reveals WBC 15.5, hemoglobin 11.5. Sodium 131, potassium 4.9, BUN 113, creatinine 4.79. Reviewed records from the office. Patient has not had an echocardiogram since 2016 which revealed EF of 50%. Patient has not been in the office since July 2018. Patient is also been maintained on IV amiodarone. He is off Cardizem drip. 03/17 Patient seen and examined. Blood pressure 128/63, heart rate 81, pulse ox 95% on 2 L nasal cannula. Patient remains in afib, controlled heart rate in the 80s- 90s. Repeat blood work reveals WBC 15.2, hemoglobin 12.1. Renal function has worsened and consult added for Dr. Marshall for dialysis catheter insertion. Yesterday, amiodarone was switched from IV to oral 400 mg twice daily. Patient is maintained on heparin drip until after catheter placement completed. Patient states he feels well today, no shortness of breath. 03/18 Patient is going from the room for insertion of dialysis catheter with plan to start hemodialysis today. Blood pressure 144/59, heart rate 84, pulse ox 98% on room air. Patient is maintained on heparin drip. 03/19 Patient had insertion of dialysis catheter done yesterday and started hemodialysis. His heart rate started running in the 120s during dialysis yesterday and he did have a drop in his blood pressure. This morning his heart rate started running in the 120s during dialysis yesterday and he did have a drop in his blood pressure with dialysis. This morning he is running in the 120s, atrial fibrillation, blood pressure 101/74, pulse ox 99% on 2 L. Yesterday, Lopressor was increased to 25 mg twice daily. 03/20 Patient continues to be in atrial fibrillation with heart rates better contro lled in the low 100s. Repeat chest x-ray reveals moderate cardiomegaly with improving interstitium. Patient is scheduled for his third hemodialysis treatment today. He denies any new concerns today. No chest pain. No palpitations. Yesterday Toprol-XL was increased to 50 mg twice daily and he was continued on amiodarone 400 mg twice daily. Yesterday heparin drip was discontinued and started Eliquis. 03/21 Patient is undergoing hemodialysis now. Blood pressure 105/65. Heart rate is running in the low 100s and seems to be controlled, telemetry is atrial flutter at 94. Patient has been on amiodarone 400 mg twice daily and Lopressor 50 mg twice daily. He denies having any chest pain or palpitations. Repeat blood work reveals WBC 13.5, hemoglobin 13.6. BUN 85 and creatinine 2.75, potassium 4.1. 03/22 Patient is seen today in follow-up. Last evening, patient went into A-fib with RVR at 140 bpm and started on Cardizem drip. His heart rate is now controlled in the 60s and 70s. Blood pressure 112/59, pulse ox 100% on room air. Patient denies chest pain or palpitations. Repeat blood work reveals sodium 133, potassium 3.4, BUN 74 creatinine 2.86.. PHYSICAL EXAMINATION Vital signs reviewed. CONSTITUTIONAL: No apparent distress. HEENT: Head is normocephalic. Pupils are equal, round. Sclerae anicteric. CHEST EXAMINATION: Lungs are clear to auscultation. No chest wall tenderness is noted on palpation or with deep breathing. HEART EXAMINATION: Regular rate and rhythm. S1, S2 heard. No murmurs, gallops or rub. ABDOMEN: Soft, nontender. Positive bowel sounds. EXTREMITIES: 2+ peripheral pulses, no lower extremity edema and no calf tenderness. NEUROLOGIC EXAMINATION: Patient is awake, alert and oriented x3. ASSESSMENT Acute on chronic respiratory failure related to component of possible COPD exacerbation with audible wheezing plus component of heart failure/kidney fa ilure Acute on chronic systolic heart failure Acute kidney injury and chronic kidney disease stage IV, patient started on dialysis 03/18 Elevated troponins, related to chronic kidney disease, not indicative of ischemia or injury New onset paroxysmal atrial flutter typical/atrial fibrillation with RVR, patient continues to have intermittent episodes of RVR New onset ischemic cardiomyopathy with EF of 35 to 40% CAD with prior history of stenting Hypertension Hyperlipidemia Diabetes mellitus type 2 History of COPD Decreased appetite may be related to progressive CKD Typical atrial flutter/fibrillation, new onset with RVR PLAN Echo showing LV EF 35-40% which may also be in part related to tachy induced Increase Toprol XL to 100 mg twice daily Discontinue Cardizem drip Continue amiodarone to 200 mg twice daily and Eliquis 2.5 mg twice daily Continue telemetry monitoring Plan is for medical therapy to optimize heart failure regime as able to tolerate. Patient will be considered for outpatient ischemic workup. Nurse practitioner note has been reviewed, I agree with documented findings and plan of care. Patient was seen and examined. Objective - Vital Signs Vital signs: Vital Signs Temp 97.6 F 03/21/24 20:20 Pulse 64 03/22/24 12:30 Resp 16 03/22/24 08:00 BP 112/59 03/22/24 08:00 Pulse Ox 100 03/22/24 08:00 FiO2 Intake & Output 03/21/24 03/22/24 03/22/24 18:59 06:59 18:59 Intake Total 876 240 Output Total 1400 400 Balance -524 240 -400 Weight 117.5 kg Intake: Oral 476 240 Hemodialysis 400 Output: Urine 400 Hemodialysis 1400 Other: Voiding Method Indwelling Catheter Indwelling Catheter Indwelling Catheter # Bowel Movements 1 - Labs CBC & Chem 7: 03/21/24 07:40 03/22/24 06:43 Labs: Abnormal Lab Results - Last 24 Hours (Table) 03/21/24 03/21/24 03/22/24 Range/Units 16:36 20:09 06:17 Sodium (137-145) mmol/L Potassium (3.5-5.1) mmol/L BUN (9-20) mg/dL Creatinine (0.66-1.25) mg/dL Glucose (74-99) mg/dL POC Glucose (mg/dL) 309 H 189 H 28 L* (70-110) mg/dL Calcium (8.4-10.2) mg/dL 03/22/24 03/22/24 03/22/24 Range/Units 06:18 06:35 06:43 Sodium 133 L (137-145) mmol/L Potassium 3.4 L (3.5-5.1) mmol/L BUN 74 H (9-20) mg/dL Creatinine 2.86 H (0.66-1.25) mg/dL Glucose 126 H (74-99) mg/dL POC Glucose (mg/dL) 29 L* 176 H (70-110) mg/dL Calcium 8.2 L (8.4-10.2) mg/dL 03/22/24 Range/Units 12:00 Sodium (137-145) mmol/L Potassium (3.5-5.1) mmol/L BUN (9-20) mg/dL Creatinine (0.66-1.25) mg/dL Glucose (74-99) mg/dL POC Glucose (mg/dL) 146 H (70-110) mg/dL Calcium (8.4-10.2) mg/dL
[2024-03-22 16:55] LABS: Glucose,Whole Blood 279 mg/dL (70-110)
[2024-03-22 20:08] LABS: Glucose,Whole Blood 318 mg/dL (70-110)
[2024-03-22] MEDS: METOPROLOL TARTRATE 50 MG TAB PO SCH (20:34)
[2024-03-23 03:09] LABS: Glucose,Whole Blood 130 mg/dL (70-110)
[2024-03-23 06:02] LABS: Glucose,Whole Blood 110 mg/dL (70-110)
[2024-03-23 11:34] LABS: Glucose,Whole Blood 117 mg/dL (70-110)
--- NOTE | 2024-03-23 12:19 | P.PN ---
Subjective Progress Note Date: 03/23/24 Patient is an 78-year-old white male with past medical history significant for COPD, obstructive sleep apnea, coronary artery disease, hypertension, hyperlipidemia, chronic kidney disease, BPH and previous TURP. His primary care provider is Dr. Isbell. Did follow with Dr. Delacruz in the pulmonary office in the past, but has not been back in some time. He is known to have moderate COPD. Patient presented to emergency room yesterday complaining of about 4 weeks of worsening shortness of breath. Accompanied by chest tightness, wheezing, cough with green phlegm. Chest x-ray on arrival showed low lung volumes and general hazy appearance, atelectasis versus pulmonary edema. Also, noted to be more confused at home. ABG was drawn in the emergency department, with a PaO2 of 93, pCO2 of 37, pH of 7.36. He is also has had issues with frequent urination and incomplete voiding. He has history of urinary retention and underwent previous TURP in the past. Denies any burning or dysuria. Denies suprapubic pain. Denies fevers. Urinalysis positive for leukocyte esterase and bacteria. CBC: WBC count 12.1, hemoglobin 12.8, hematocrit 40.5, platelets 274. CMP: Sodium 143, potassium 4.2, chloride 110, serum bicarb 20, BUN 87, creatinine 4.44, glucose 72. Does have an indwelling urinary catheter. lactic 2. LFTs not elevated. Troponin 0.047. NT proBNP 4860. Negative for influenza, RSV, COVID. He is currently sitting up at the edge of the bed, reportedly just got up to use the bathroom. Seems to be oriented. He is on 2 L/min nasal cannula. SpO2 is 98%. He has audible wheezing. Vital signs are stable. The patient is seen today March 15, 2024 in follow-up on the selective care unit. He is currently sitting up in bed. Awake and alert in no acute distress. He is maintaining good O2 saturations in the 90s on 3 L/min per nasal cannula. No IV fluids. He is feeling better today compared to yesterday. Still somewhat bronchospastic and wheezing. He is continued on DuoNeb inhalations, Pulmicort and Perforomist inhalations, IV Solu-Medrol. He is on antibiotics in the form of ceftriaxone. Currently on a Cardizem drip at 10 mg/h. He did develop atrial fibrillation with a rapid ventricular response today. Urine culture positive for gram-negative bacilli. Blood culture revealing no growth. Sputum culture revealing no growth. White count 16.7. Hemoglobin 11.7. Platelets 212. Sodium 134. Potassium 5.0. Bicarb 20. BUN 94. Creatinine 4.88. Glucose 300. Procalcitonin 0.26. The patient is seen today March 16, 2024 in follow-up on the selective care unit. He is currently resting in bed. Awake and alert in no acute distress. He is maintaining O2 saturations in the 90s on room air. He is continued on a heparin drip. Continue on amiodarone drip at 0.5 mg/min. He is continued on DuoNeb inhalations, Pulmicort and Perforomist inhalations, Solu-Medrol at 40 mg every 8 hours. The patient is still somewhat bronchospastic and wheezing. He remains in atrial fibrillation with a better controlled ventricular response. He is on antibiotics in the form of ceftriaxone. Urine culture was positive for Klebsiella pneumoniae. Sputum culture revealed no growth. Blood cultures revealed no growth. White count 15.5. Hemoglobin 11.5. Platelets 212. Sodium 131. Potassium 4.9. Bicarb 17. BUN 113. Creatinine 4.79. Glucose 303. He has been initiated on sodium bicarb tablets. Current urine output 450 mL. The patient is seen today March 17, 2024 in follow-up on the selective care unit. He is currently resting comfortably in bed. Awake and alert in no acute distress. Maintaining good O2 saturations in the 90s on 2 L/min per nasal cannula. He remains on a heparin drip. He remains on DuoNeb inhalations, Pulmicort and Perforomist inhalations, Solu-Medrol. Antibiotics in the form of ceftriaxone. White count 15.2. Hemoglobin 12.1. Platelets 200,000. Sodium 136. Potassium 4.5. Bicarb 19. BUN 119. Creatinine 5.47. Glucose 176. Ur ine culture was positive for Klebsiella pneumoniae. Blood cultures revealed no growth. Sputum culture revealed no growth. Nephrology is following for possible renal replacement therapy. Chest x-ray reveals mild cardiomegaly and mild pulmonary vascular congestion. On 03/18/2024, the patient is being seen for a follow-up. The patient is known to have COPD, obstructive sleep apnea, coronary disease, hypertension hyperlipidemia chronic kidney disease. The patient also suffers from BPH and he has undergone previous TURP. The patient is not currently undergoing hemodialysis. He is on room air oxygen. Main complaint is some limited residual cough. Patient also being treated for an underlying urine tract infection with Klebsiella and the patient is currently on IV Rocephin. No other specific complaints. White cell count of 16.6 with a hemoglobin 12.8 and a platelet count of 215. The BUN levels at 137 with a potassium level of 5.1 and a sodium level is at 137 and a potassium level is at 4.1. Free T4 is at 0.9 with a TSH of 0.38. The patient remains on DuoNeb updrafts. The patient is on Levemir insulin. The patient is on oral bicarb. The urine output remains active and the patient is producing adequate amount of urine output and remains in negative fluid balance. Nephrology is on the case for now. Remains on bronchodilators. Remains on steroids. The chest x-ray that was done on 03/17/2024 showed mild cardiomegaly and pulm vessel congestion and some atelectatic change in lung base bilaterally. 03/19/2024, I am seeing the patient for a follow-up. Patient is resting comfortably in bed. The patient is currently on room air oxygen. Denies having any significant shortness of breath at rest. No chest pain. No angina or palpitations. The patient underwent hemodialysis yesterday. His current oxygenation stable on room air oxygen. Meanwhile, the patient was noted to have some increased tachycardia with atrial fibrillation. Cardiology on the case. The patient is currently on metoprolol and the dose was increased up to 50 mg twice a day. Will monitor his blood pressure response. Continue bronchodilators. Continue steroids. Continue Levemir insulin 40 units every 12 hours and sliding scale coverage. Continue IV Rocephin. The patient's white cell count is at 15.7 with a hemoglobin of 13.1 and a platelet count of 186. BUN is 117 with a creatinine of 3.84 and sodium levels at 135. Patient is being seen by cardiology and nephrology. The patient has mentioned sustaining acute kidney injury on top of chronic kidney disease. Started on hemodialysis on 03/18/2024. Hemodynamically stable. Reynolds catheter is in place. A second treatment with dialysis to be done today and the third tomorrow. His chest x- ray from today shows cardiomegaly and mild interstitial prominence nasal congestion heart failure. On 03/20/2024, the patient is being seen for a follow-up. The patient is stable on room air oxygen. He is undergoing hemodialysis today. Remains on bronchodilators. Remains on Solu-Medrol and the patient has been weaned down to 40 mg IV every 12 hours. Limited cough and congestion. Remains on DuoNeb AND remains on Perforomist and Pulmicort nebulized treatment twice a day. No chest pain. Volume status is improving. The BUN is at 105 with a creatinine of 3.46 and a sodium level is 138 and a potassium level is at 3.9. Hematologic profile from 03/19/2024 showed a white cell count of 15.7 and hemoglobin of 15.1. The patient's urine culture is positive for Klebsiella pneumonia and this urine culture was collected on 03/13/2024. On 03/21/2024, the patient is undergoing hemodialysis. Resting comfortably in bed on room air oxygen. No specific complaints. No significant events overnight. The patient has an underlying A-fib/flutter. He is currently on metoprolol 50 mg p.o. twice daily and amiodarone 4 mg p.o. twice a day. No angina. No palpitation. No altered mentation. Labs from today shows a white cell count of 13 with a hemoglobin of 15 and a platelet count of 159. BUN is 85 with a creatinine of 2.75 and a sodium level is 134. Remains on DuoNeb updrafts 4 times a day in addition to performance of Pulmicort nebulized treatments twice a day. Solu-Medrol was weaned down to 40 mg every 12 hours. Rest of the me dications remain unchanged. On 03/22/2024, the patient is being seen for a follow-up. Calm and comfortable. No specific complaints. No plans for hemodialysis today. The patient denies having significant shortness of breath. No chest pain. He remains on room air oxygen. BUN 74 with a creatinine of 2.8. Potassium is at 3.4. Remains on DuoNeb treatments on the clock. Remains on IV Solu-Medrol and the patient is going to be started on prednisone burst taper. Remains on Levemir insulin 40 u nits twice a day. Remains on anticoagulation with Eliquis 2.5 mg p.o. twice a day. On 03/23/2024, the patient is being seen for a follow-up. Resting comfortably in bed. No specific complaints. No dialysis for today. Clinically stable. Hemodynamically stable. Labs from today are pending. No significant events overnight. Patient remains on same medication. The patient was taken off IV Solu-Medrol and the patient currently on a prednisone burst taper starting with 40 mg p.o. daily. Objective - Vital Signs Vital signs: Vital Signs Temp 97.0 F L 03/23/24 07:41 Pulse 60 03/23/24 08:42 Resp 18 03/23/24 08:42 BP 92/54 03/23/24 07:41 Pulse Ox 94 L 03/23/24 08:27 FiO2 Intake & Output 03/22/24 03/23/24 03/23/24 18:59 06:59 18:59 Intake Total 354 120 Output Total 400 900 Balance -46 -900 120 Weight 120.5 kg Intake: Oral 354 120 Output: Urine 400 900 Other: Voiding Method Indwelling Catheter Indwelling Catheter Indwelling Catheter - Exam GENERAL EXAM: Alert, pleasant 78-year-old male, on room air oxygen, comfortable in no acute distress. HEAD: Normocephalic and atraumatic EYES: Normal reaction of pupils, equal size. NOSE: Clear with pink turbinates. THROAT: No erythema or exudates. NECK: No masses, no JVD. CHEST: No chest wall deformity. LUNGS: Equal air entry with bilateral expiratory wheezes. CVS: S1 and S2 normal with no audible murmur, regular rhythm. No extra heart braden nds ABDOMEN: No hepatosplenomegaly, active bowel sounds, no guarding or rigidity. SPINE: No scoliosis or deformity SKIN: No rashes CENTRAL NERVOUS SYSTEM: No focal deficits, tone is normal in all 4 extremities. EXTREMITIES: There is no peripheral edema, clubbing, or cyanosis. Peripheral pulses are intact. - Labs CBC & Chem 7: 03/21/24 07:40 03/22/24 06:43 Labs: Abnormal Lab Results - Last 24 Hours (Table) 03/22/24 03/22/24 03/22/24 Range/Units 12:00 16:53 20:06 POC Glucose (mg/dL) 146 H 279 H 318 H (70-110) mg/dL 03/23/24 Range/Units 03:06 POC Glucose (mg/dL) 130 H (70-110) mg/dL Assessment and Plan Plan: Acute hypoxemic respiratory failure, recovered and on room air, likely secondary to acute COPD exacerbation and a systolic CHF exacerbation. Favor CHF with fluid overload in the setting of an acute on chronic kidney failure. The patient is currently undergoing hemodialysis. The chest x-ray on arrival showed low lung volumes and general hazy appearance, atelectasis versus pulmonary edema. NT proBNP was elevated at 4860. Negative for influenza, RSV, COVID. Noted the patient is currently on room air oxygen. Repeat chest x-ray from 03/19/2024 shows cardiomegaly with mild pulm venous congestion. No dyspnea at rest. Atrial fibrillation with a rapid ventricular response, and the most recent EKG from today is consistent with flutter. The patient is on amiodarone. The metoprolol has been increased to 50 mg twice a day. Anticoagulation as per cardiology. Acute exacerbation of chronic systolic congestive heart failure. Ejection fraction 35 to 40%. Global hypokinesis Acute on chronic kidney disease, possibly postobstructive secondary to retention, patient has indwelling urinary catheter placed, producing adequate amount of urine output and the patient is also being dialyzed. Nephrology on the case. Hemodialysis was started on 03/18/2024. Currently undergoing hemodialysis. Nephrology on the case. Urinary tract infection secondary to Klebsiella pneumoniae, currently on ceftriaxone, completed the course of antibiotics. Elevated troponin, possibly supply/demand related Chronic kidney disease stage IV History of BPH with previous TURP History of hyperlipidemia History of hypertension History of diabetes mellitus History of coronary artery disease with previous PCI/stent Moderate chronic obstructive pulmonary disease Obstructive sleep apnea Obesity, with a BMI of 38.9 kg/m Plan: Clinically stable. Hemodynamically stable. Last hemodialysis session was on 03/21/2024 Patient is currently on room air oxygen Shortness of breath is improved and the patient is some residual cough continues to be on bronchodilators and steroids. The patient is on a prednisone burst taper starting with 40 mg Management of atrial flutter per cardiology. The patient is currently on amiodarone and metoprolol Continue renal replacement therapy per nephrology Continue DuoNeb, Pulmicort and Perforomist inhalations Keep Reynolds catheter in place, producing adequate amount of urine output. Hemodialysis today. Increase his activity as tolerated We will continue to follow
--- NOTE | 2024-03-23 12:34 | P.PN ---
Subjective Patient is seen for follow-up for acute kidney injury and chronic kidney disease stage IV with baseline creatinine 2.6 to 2.8 mg/dL. Admitted to the hospital with complaints of shortness of breath and weakness. Cardiomyopathy with a EF of 35 to 40%. Started hemodialysis this admission on 03/18/2024. Patient is scheduled for hemodialysis today. No significant complaints. Objective - Vital Signs Vital signs: Vital Signs Temp 97.0 F L 03/23/24 07:41 Pulse 72 03/23/24 11:38 Resp 18 03/23/24 11:38 BP 127/78 03/23/24 11:23 Pulse Ox 93 L 03/23/24 11:23 FiO2 Intake & Output 03/22/24 03/23/24 03/23/24 18:59 06:59 18:59 Intake Total 354 120 Output Total 400 900 Balance -46 -900 120 Weight 120.5 kg Intake: Oral 354 120 Output: Urine 400 900 Other: Voiding Method Indwelling Catheter Indwelling Catheter Indwelling Catheter - Exam Patient is awake, comfortable, no acute distress. Examination of the heart S1 and S2 Examination of the lungs decreased breath sounds at the bases with bilateral wheezing Abdomen is soft obese nontender Examination of lower extremity shows no significant edema, chronic skin changes. [employer] exam grossly intact - Labs CBC & Chem 7: 03/21/24 07:40 03/22/24 06:43 Labs: Abnormal Lab Results - Last 24 Hours (Table) 03/22/24 03/22/24 03/23/24 Range/Units 16:53 20:06 03:06 POC Glucose (mg/dL) 279 H 318 H 130 H (70-110) mg/dL 03/23/24 Range/Units 11:33 POC Glucose (mg/dL) 117 H (70-110) mg/dL Assessment and Plan Assessment: 1. Acute kidney injury secondary to ATN secondary to cardiorenal syndrome and hemodynamic instability. Creatinine 5.11 dated March 18, 2024. Elevated BUN due to acute kidney injury as well as steroids. Nonoliguric. No hydronephrosis noted on kidney ultrasound. Right kidney atrophic. Started on hemodialysis March 18, 2024. Has permacath. 2. Chronic kidney disease stage IV secondary to diabetic kidney disease and nephrosclerosis with baseline creatinine 2.5-2.8. 3. Acute on chronic systolic CHF with ejection fraction of 35 to 40%. 4. Klebsiella UTI on antibiotics. 5. Urinary retention. Has Reynolds catheter. On Flomax. Urology following. 6. Volume overload. 7. Chronic kidney disease mineral bone disease maintained on calcitriol. 8. A-fib with RVR maintained on oral amiodarone and metoprolol. 9. Metabolic acidosis secondary to acute kidney injury. On oral bicarb. Stable. 10. Hyperphosphatemia secondary to acute kidney injury. On PhosLo. Phosphorus level 5.9 dated March 17, 2024. Plan: continue hemodialysis on a Monday schedule.
--- NOTE | 2024-03-23 14:41 | P.PN ---
Subjective Progress Note Date: 03/23/24 HISTORY OF PRESENTING ILLNESS This is a pleasant 71-year-old with past medical history significant for COPD, CAD with prior stenting, diabetes mellitus type 2, hypertension, hyperlipidemia, chronic kidney disease. He follows in the office with Dr Ramos. He states that he has been having increased shortness of breath over last week and a half. He also has been having some upper abdominal achiness. Denies any specific chest pain or pressure. He has not really had an appetite over last few weeks. He does have chronic kidney disease with creatinine more than the 2.8 range however creatinine increased up before this admission. Denies any recent Motrin. No significant lightheadedness or dizziness. No recent changes to his medications. Chest x-ray performed which shows pulmonary vascular con gestion. Patient also has diffuse wheezes on exam. EKG showing sinus rhythm with frequent PACs. Troponin 0.05, 0.05. Lactic acid 2.2. ProBNP 4860 03/15 Patient seen and examined. Patient went into atrial flutter with RVR with initial heart rates in the 140s and initially looked like SVT and therefore adenosine was given with no improvement. Patient was started on Cardizem drip with underlying atrial flutter waves. He does not have any history of atrial flutter. We discussed anticoagulation for stroke prevention patient is agreeable. We will place patient on Lovenox in case he needs possible dialysis catheter placement. Denies any chest pain or pressure. He has been somewhat symptomatic with the atrial flutter with more shortness of breath. 03/16 Patient seen and examined. Patient states that his breathing is okay. No chest pain and no chest pressure. He does complain of cough. No palpitations. Plan is to start patient on hemodialysis on Monday. He is on a heparin drip which will be continued until after that. Blood pressure 117/56, heart rate 89, pulse ox 97% on room air. Repeat blood work reveals WBC 15.5, hemoglobin 11.5. Sodium 131, potassium 4.9, BUN 113, creatinine 4.79. Reviewed records from the office. Patient has not had an echocardiogram since 2016 which revealed EF of 50%. Patient has not been in the office since July 2018. Patient is also been maintained on IV amiodarone. He is off Cardizem drip. 03/17 Patient seen and examined. Blood pressure 128/63, heart rate 81, pulse ox 95% on 2 L nasal cannula. Patient remains in afib, controlled heart rate in the 80s- 90s. Repeat blood work reveals WBC 15.2, hemoglobin 12.1. Renal function has worsened and consult added for Dr. Marshall for dialysis catheter insertion. Yesterday, amiodarone was switched from IV to oral 400 mg twice daily. Patient is maintained on heparin drip until after catheter placement completed. Patient states he feels well today, no shortness of breath. 03/18 Patient is going from the room for insertion of dialysis catheter with plan to start hemodialysis today. Blood pressure 144/59, heart rate 84, pulse ox 98% on room air. Patient is maintained on heparin drip. 03/19 Patient had insertion of dialysis catheter done yesterday and started hemodialysis. His heart rate started running in the 120s during dialysis yesterday and he did have a drop in his blood pressure. This morning his heart rate started running in the 120s during dialysis yesterday and he did have a drop in his blood pressure with dialysis. This morning he is running in the 120s, atrial fibrillation, blood pressure 101/74, pulse ox 99% on 2 L. Yesterday, Lopressor was increased to 25 mg twice daily. 03/20 Patient continues to be in atrial fibrillation with heart rates better contro lled in the low 100s. Repeat chest x-ray reveals moderate cardiomegaly with improving interstitium. Patient is scheduled for his third hemodialysis treatment today. He denies any new concerns today. No chest pain. No palpitations. Yesterday Toprol-XL was increased to 50 mg twice daily and he was continued on amiodarone 400 mg twice daily. Yesterday heparin drip was discontinued and started Eliquis. 03/21 Patient is undergoing hemodialysis now. Blood pressure 105/65. Heart rate is running in the low 100s and seems to be controlled, telemetry is atrial flutter at 94. Patient has been on amiodarone 400 mg twice daily and Lopressor 50 mg twice daily. He denies having any chest pain or palpitations. Repeat blood work reveals WBC 13.5, hemoglobin 13.6. BUN 85 and creatinine 2.75, potassium 4.1. 03/22 Patient is seen today in follow-up. Last evening, patient went into A-fib with RVR at 140 bpm and started on Cardizem drip. His heart rate is now controlled in the 60s and 70s. Blood pressure 112/59, pulse ox 100% on room air. Patient denies chest pain or palpitations. Repeat blood work reveals sodium 133, potassium 3.4, BUN 74 creatinine 2.86.. 03/23/2024 Patient is seen in follow-up today. He continues to be in atrial fibrillation but his heart rates are better controlled. Hemodynamically stable. Plan for hemodialysis today. PHYSICAL EXAMINATION Vital signs reviewed. CONSTITUTIONAL: No apparent distress. HEENT: Head is normocephalic. Pupils are equal, round. Sclerae anicteric. CHEST EXAMINATION: Lungs are clear to auscultation. No chest wall tenderness is noted on palpation or with deep breathing. HEART EXAMINATION: Regular rate and rhythm. S1, S2 heard. No murmurs, gallops or rub. ABDOMEN: Soft, nontender. Positive bowel sounds. EXTREMITIES: 2+ peripheral pulses, no lower extremity edema and no calf tenderness. NEUROLOGIC EXAMINATION: Patient is awake, alert and oriented x3. ASSESSMENT Acute on chronic respiratory failure related to component of possible COPD exacerbation with audible wheezing plus component of heart failure/kidney failure Acute on chronic systolic heart failure Acute kidney injury and chronic kidney disease stage IV, patient started on dialysis 03/18 Elevated troponins, related to chronic kidney disease, not indicative of ische charlee or injury New onset paroxysmal atrial flutter typical/atrial fibrillation with RVR, patient continues to have intermittent episodes of RVR New onset ischemic cardiomyopathy with EF of 35 to 40% CAD with prior history of stenting Hypertension Hyperlipidemia Diabetes mellitus type 2 History of COPD Decreased appetite may be related to progressive CKD Typical atrial flutter/fibrillation, new onset with RVR PLAN Echo showing LV EF 35-40% which may also be in part related to tachy induced Toprol XL to 100 mg twice daily Continue amiodarone to 200 mg twice daily and Eliquis 2.5 mg twice daily. Reduce amiodarone to 200 mg daily starting 03/27/2024 Continue telemetry monitoring Plan is for medical therapy to optimize heart failure regime as able to tolerate. Patient will be considered for outpatient ischemic workup. Objective - Vital Signs Vital signs: Vital Signs Temp 97.0 F L 03/23/24 07:41 Pulse 84 03/23/24 14:00 Resp 18 03/23/24 14:00 BP 127/78 03/23/24 11:23 Pulse Ox 93 L 03/23/24 11:23 FiO2 Intake & Output 03/22/24 03/23/24 03/23/24 18:59 06:59 18:59 Intake Total 354 120 Output Total 400 900 425 Balance -46 -900 -305 Weight 120.5 kg Intake: Oral 354 120 Output: Urine 400 900 425 Other: Voiding Method Indwelling Catheter Indwelling Catheter Indwelling Catheter - Labs CBC & Chem 7: 03/21/24 07:40 03/22/24 06:43 Labs: Abnormal Lab Results - Last 24 Hours (Table) 03/22/24 03/22/24 03/23/24 Range/Units 16:53 20:06 03:06 POC Glucose (mg/dL) 279 H 318 H 130 H (70-110) mg/dL 03/23/24 Range/Units 11:33 POC Glucose (mg/dL) 117 H (70-110) mg/dL
[2024-03-23 16:35] LABS: Glucose,Whole Blood 133 mg/dL (70-110)
[2024-03-23 20:26] LABS: Glucose,Whole Blood 209 mg/dL (70-110)
[2024-03-24 06:11] LABS: Glucose,Whole Blood 41 mg/dL (70-110)
[2024-03-24 06:39] LABS: Glucose,Whole Blood 62 mg/dL (70-110)
[2024-03-24 06:59] LABS: Glucose,Whole Blood 69 mg/dL (70-110)
[2024-03-24 07:17] LABS: Glucose,Whole Blood 86 mg/dL (70-110)
[2024-03-24 07:56] LABS: HCT 41.5 % (39.0-53.0); HGB 12.8 gm/dL (13.0-17.5); MCH 28.9 pg (25.0-35.0); MCHC 30.9 g/dL (31.0-37.0); MCV 93.6 fL (80.0-100.0); Mean Platelet Volume 7.5; Platelet Count 148 k/uL (150-450); RBC 4.43 m/uL (4.30-5.90); RDW 14.6 % (11.5-15.5); WBC 13.1 k/uL (3.8-10.6)
--- NOTE | 2024-03-24 07:58 | P.PN ---
Subjective Progress Note Date: 03/22/24 78-year-old white male with past medical history significant for COPD, obstructive sleep apnea, coronary artery disease, hypertension, hyperlipidemia, chronic kidney disease, BPH and previous TURP. Patient presented to emergency room complaining of about 4 weeks of worsening shortness of breath. Accompanied by chest tightness, wheezing, cough with green phlegm. Chest x-ray on arrival showed low lung volumes and general hazy appearance, atelectasis versus pulmonary edema. Also, noted to be more confused at home. ABG was drawn in the emergency department, with a PaO2 of 93, pCO2 of 37, pH of 7.36. He is also has had issues with frequent urination and incomplete voiding. He has history of urinary retention and underwent previous TURP in the past. Denies any burning or dysuria. Denies suprapubic pain. Denies fevers. Urinalysis positive for leukocyte esterase and bacteria. CBC: WBC count 12.1, hemoglobin 12.8, hematocrit 40.5, platelets 274. CMP: Sodium 143, potassium 4.2, chloride 110, serum bicarb 20, BUN 87, creatinine 4.44, glucose 72. Does have an indwelling urinary catheter. lactic 2. LFTs not elevated. Troponin 0.047. NT proBNP 4860. Negative for influenza, RSV, COVID. Objective - Vital Signs Vital signs: Vital Signs Temp 97.6 F 03/21/24 20:20 Pulse 64 03/22/24 12:30 Resp 16 03/22/24 08:00 BP 112/59 03/22/24 08:00 Pulse Ox 100 03/22/24 08:00 FiO2 Intake & Output 03/21/24 03/22/24 03/22/24 18:59 06:59 18:59 Intake Total 876 240 Output Total 1400 400 Balance -524 240 -400 Weight 117.5 kg Intake: Oral 476 240 Hemodialysis 400 Output: Urine 400 Hemodialysis 1400 Other: Voiding Method Indwelling Catheter Indwelling Catheter Indwelling Catheter # Bowel Movements 1 - Exam GENERAL EXAM: Alert, pleasant 78-year-old male, on room air oxygen, comfortable in no acute distress. HEAD: Normocephalic and atraumatic EYES: Normal reaction of pupils, equal size. NECK: No masses, no JVD. CHEST: No chest wall deformity. LUNGS: Equal air entry with bilateral expiratory wheezes. CVS: S1 and S2 normal with no audible murmur, regular rhythm. No extra heart sounds ABDOMEN: No hepatosplenomegaly, active bowel sounds, no guarding or rigidity. CENTRAL NERVOUS SYSTEM: No focal deficits, tone is normal in all 4 extremities. EXTREMITIES: There is no peripheral edema, clubbing, or cyanosis. Peripheral pulses are intact. - Labs CBC & Chem 7: 03/21/24 07:40 03/22/24 06:43 Labs: Abnormal Lab Results - Last 24 Hours (Table) 03/21/24 03/21/24 03/22/24 Range/Units 16:36 20:09 06:17 Sodium (137-145) mmol/L Potassium (3.5-5.1) mmol/L BUN (9-20) mg/dL Creatinine (0.66-1.25) mg/dL Glucose (74-99) mg/dL POC Glucose (mg/dL) 309 H 189 H 28 L* (70-110) mg/dL Calcium (8.4-10.2) mg/dL 03/22/24 03/22/24 03/22/24 Range/Units 06:18 06:35 06:43 Sodium 133 L (137-145) mmol/L Potassium 3.4 L (3.5-5.1) mmol/L BUN 74 H (9-20) mg/dL Creatinine 2.86 H (0.66-1.25) mg/dL Glucose 126 H (74-99) mg/dL POC Glucose (mg/dL) 29 L* 176 H (70-110) mg/dL Calcium 8.2 L (8.4-10.2) mg/dL 03/22/24 Range/Units 12:00 Sodium (137-145) mmol/L Potassium (3.5-5.1) mmol/L BUN (9-20) mg/dL Creatinine (0.66-1.25) mg/dL Glucose (74-99) mg/dL POC Glucose (mg/dL) 146 H (70-110) mg/dL Calcium (8.4-10.2) mg/dL Assessment and Plan Assessment: 1. Acute hypoxemic respiratory failure; likely secondary to acute COPD exacerbation and a systolic CHF exacerbation. --The patient is currently undergoing hemodialysis. The chest x-ray on arrival showed low lung volumes and general hazy appearance, atelectasis versus pulmonary edema. NT proBNP was elevated at 4860. Negative for influenza, RSV, COVID. Noted the patient is currently on room air oxygen. Repeat chest x-ray from 03/19/2024 shows cardiomegaly with mild pulm venous congestion. No dyspnea at rest. 2. Atrial fibrillation with a rapid ventricular response; --recent EKG from today is consistent with flutter; patient is on amiodarone; metoprolol has been increased to 50 mg twice a day. Anticoagulated with Eliquis 2.5 mg twice daily 3. Acute exacerbation of chronic systolic congestive heart failure. Ejection fraction 35 to 40%. Global hypokinesis 4. Acute on chronic kidney disease stage IV, possibly postobstructive secondary to retention, patient has indwelling urinary catheter placed, producing adequate amount of urine output. Nephrology on board. -- Hemodialysis was started on 03/18/2024. Currently undergoing hemodialysis. 5. Urinary tract infection secondary to Klebsiella pneumoniae; completed the course of antibiotics. 6. History of hyperlipidemia; currently not on any statin therapy 7. History of hypertension; metoprolol 100 mg twice daily 8. History of diabetes mellitus; patient takes Lantus 60 units subcu daily along with glipizide 5 mg twice daily; monitor Accu-Cheks before meals and at bedtime with insulin sliding scale 9. History of coronary artery disease with previous PCI/stent VT prophylaxis; SCDs/Eliquis CODE STATUS; DNR
--- NOTE | 2024-03-24 08:01 | P.PN ---
Subjective Progress Note Date: 03/23/24 78-year-old white male with past medical history significant for COPD, obstructive sleep apnea, coronary artery disease, hypertension, hyperlipidemia, chronic kidney disease, BPH and previous TURP. Patient presented to emergency room complaining of about 4 weeks of worsening shortness of breath. Accompanied by chest tightness, wheezing, cough with green phlegm. Chest x-ray on arrival showed low lung volumes and general hazy appearance, atelectasis versus pulmonary edema. Also, noted to be more confused at home. ABG was drawn in the emergency department, with a PaO2 of 93, pCO2 of 37, pH of 7.36. He is also has had issues with frequent urination and incomplete voiding. He has history of urinary retention and underwent previous TURP in the past. Denies any burning or dysuria. Denies suprapubic pain. Denies fevers. Urinalysis positive for leukocyte esterase and bacteria. CBC: WBC count 12.1, hemoglobin 12.8, hematocrit 40.5, platelets 274. CMP: Sodium 143, potassium 4.2, chloride 110, serum bicarb 20, BUN 87, creatinine 4.44, glucose 72. Does have an indwelling urinary catheter. lactic 2. LFTs not elevated. Troponin 0.047. NT proBNP 4860. Negative for influenza, RSV, COVID. 24-hour interval change 03/23/2024 --the patient is seen and evaluated in room at bedside for a follow-up. Resting comfortably in bed. No specific complaints. No dialysis for today. Vital signs are reviewed and remained stable Labs from today are pending. No significant events overnight. -- patient is being followed by pulmonary service and was taken off IV Solu-Med rol and the patient currently on a prednisone burst taper starting with 40 mg p.o. daily. Nephrology is following for renal replacement therapy; patient is scheduled for hemodialysis today with recommendations to continue hemodialysis on Monday and Monday Remains in atrial fibrillation with RVR and is maintained on oral amiodarone and metoprolol Objective - Vital Signs Vital signs: Vital Signs Temp 97.5 F L 03/23/24 17:18 Pulse 60 03/23/24 17:18 Resp 19 03/23/24 17:18 BP 109/79 03/23/24 17:18 Pulse Ox 97 03/23/24 15:35 FiO2 Intake & Output 03/22/24 03/23/24 03/23/24 18:59 06:59 18:59 Intake Total 354 1170 Output Total 183 985 3015 Balance -46 -900 -465 Weight 120.5 kg Intake: Oral 354 120 Hemodialysis 1050 Output: Urine 400 900 425 Hemodialysis 1210 Other: Voiding Method Indwelling Catheter Indwelling Catheter Indwelling Catheter - Exam GENERAL EXAM: Alert, pleasant 78-year-old male, on room air oxygen, comfortable in no acute distress. HEAD: Normocephalic and atraumatic EYES: Normal reaction of pupils, equal size. NECK: No masses, no JVD. CHEST: No chest wall deformity. LUNGS: Equal air entry with bilateral expiratory wheezes. CVS: S1 and S2 normal with no audible murmur, regular rhythm. No extra heart sounds ABDOMEN: No hepatosplenomegaly, active bowel sounds, no guarding or rigidity. CENTRAL NERVOUS SYSTEM: No focal deficits, tone is normal in all 4 extremities. EXTREMITIES: There is no peripheral edema, clubbing, or cyanosis. Peripheral pulses are intact. - Labs CBC & Chem 7: 03/24/24 07:06 03/22/24 06:43 Labs: Abnormal Lab Results - Last 24 Hours (Table) 03/22/24 03/23/24 03/23/24 Range/Units 20:06 03:06 11:33 POC Glucose (mg/dL) 318 H 130 H 117 H (70-110) mg/dL 03/23/24 Range/Units 16:34 POC Glucose (mg/dL) 133 H (70-110) mg/dL Assessment and Plan Assessment: 1. Acute hypoxemic respiratory failure; likely secondary to acute COPD exacerbation and a systolic CHF exacerbation. --The patient is currently undergoing hemodialysis. The chest x-ray on arrival showed low lung volumes and general hazy appearance, atelectasis versus pulmonary edema. NT proBNP was elevated at 4860. Negative for influenza, RSV, COVID. Noted the patient is currently on room air oxygen. Repeat chest x-ray from 03/19/2024 shows cardiomegaly with mild pulm venous congestion. No dyspnea at rest. 2. Atrial fibrillation with a rapid ventricular response; --recent EKG from today is consistent with flutter; patient is on amiodarone; metoprolol has been increased to 50 mg twice a day. Anticoagulated with Eliquis 2.5 mg twice daily 3. Acute exacerbation of chronic systolic congestive heart failure. Ejection fraction 35 to 40%. Global hypokinesis 4. Acute on chronic kidney disease stage IV, possibly postobstructive secondary to retention, patient has indwelling urinary catheter placed, producing adequate amount of urine output. Nephrology on board. -- Hemodialysis was started on 03/18/2024. Currently undergoing hemodialysis. 5. Urinary tract infection secondary to Klebsiella pneumoniae; completed the course of antibiotics. 6. History of hyperlipidemia; currently not on any statin therapy 7. History of hypertension; metoprolol 100 mg twice daily 8. History of diabetes mellitus; patient takes Lantus 60 units subcu daily along with glipizide 5 mg twice daily; monitor Accu-Cheks before meals and at b edtime with insulin sliding scale 9. History of coronary artery disease with previous PCI/stent VT prophylaxis; SCDs/Eliquis CODE STATUS; DNR
[2024-03-24 08:13] LABS: African American GFR (CKD) 26 (>60 ml/min/1.73 sqM); Anion Gap 9 mmol/L; Blood Urea Nitrogen 67 mg/dL (9-20); Calcium 7.9 mg/dL (8.4-10.2); Carbon Dioxide 24 mmol/L (22-30); Chloride 104 mmol/L (98-107); Glucose 81 mg/dL (74-99); Non-African American GFR(CKD) 23 (>60 ml/min/1.73 sqM); Potassium 3.4 mmol/L (3.5-5.1); Sodium 137 mmol/L (137-145)
--- NOTE | 2024-03-24 10:32 | P.PN ---
Subjective Progress Note Date: 03/24/24 HISTORY OF PRESENTING ILLNESS This is a pleasant 71-year-old with past medical history significant for COPD, CAD with prior stenting, diabetes mellitus type 2, hypertension, hyperlipidemia, chronic kidney disease. He follows in the office with Dr Ramos. He states that he has been having increased shortness of breath over last week and a half. He also has been having some upper abdominal achiness. Denies any specific chest pain or pressure. He has not really had an appetite over last few weeks. He does have chronic kidney disease with creatinine more than the 2.8 range however creatinine increased up before this admission. Denies any recent Motrin. No significant lightheadedness or dizziness. No recent changes to his medications. Chest x-ray performed which shows pulmonary vascular con gestion. Patient also has diffuse wheezes on exam. EKG showing sinus rhythm with frequent PACs. Troponin 0.05, 0.05. Lactic acid 2.2. ProBNP 4860 03/15 Patient seen and examined. Patient went into atrial flutter with RVR with initial heart rates in the 140s and initially looked like SVT and therefore adenosine was given with no improvement. Patient was started on Cardizem drip with underlying atrial flutter waves. He does not have any history of atrial flutter. We discussed anticoagulation for stroke prevention patient is agreeable. We will place patient on Lovenox in case he needs possible dialysis catheter placement. Denies any chest pain or pressure. He has been somewhat symptomatic with the atrial flutter with more shortness of breath. 03/16 Patient seen and examined. Patient states that his breathing is okay. No chest pain and no chest pressure. He does complain of cough. No palpitations. Plan is to start patient on hemodialysis on Monday. He is on a heparin drip which will be continued until after that. Blood pressure 117/56, heart rate 89, pulse ox 97% on room air. Repeat blood work reveals WBC 15.5, hemoglobin 11.5. Sodium 131, potassium 4.9, BUN 113, creatinine 4.79. Reviewed records from the office. Patient has not had an echocardiogram since 2016 which revealed EF of 50%. Patient has not been in the office since July 2018. Patient is also been maintained on IV amiodarone. He is off Cardizem drip. 03/17 Patient seen and examined. Blood pressure 128/63, heart rate 81, pulse ox 95% on 2 L nasal cannula. Patient remains in afib, controlled heart rate in the 80s- 90s. Repeat blood work reveals WBC 15.2, hemoglobin 12.1. Renal function has worsened and consult added for Dr. Marshall for dialysis catheter insertion. Yesterday, amiodarone was switched from IV to oral 400 mg twice daily. Patient is maintained on heparin drip until after catheter placement completed. Patient states he feels well today, no shortness of breath. 03/18 Patient is going from the room for insertion of dialysis catheter with plan to start hemodialysis today. Blood pressure 144/59, heart rate 84, pulse ox 98% on room air. Patient is maintained on heparin drip. 03/19 Patient had insertion of dialysis catheter done yesterday and started hemodialysis. His heart rate started running in the 120s during dialysis yesterday and he did have a drop in his blood pressure. This morning his heart rate started running in the 120s during dialysis yesterday and he did have a drop in his blood pressure with dialysis. This morning he is running in the 120s, atrial fibrillation, blood pressure 101/74, pulse ox 99% on 2 L. Yesterday, Lopressor was increased to 25 mg twice daily. 03/20 Patient continues to be in atrial fibrillation with heart rates better contro lled in the low 100s. Repeat chest x-ray reveals moderate cardiomegaly with improving interstitium. Patient is scheduled for his third hemodialysis treatment today. He denies any new concerns today. No chest pain. No palpitations. Yesterday Toprol-XL was increased to 50 mg twice daily and he was continued on amiodarone 400 mg twice daily. Yesterday heparin drip was discontinued and started Eliquis. 03/21 Patient is undergoing hemodialysis now. Blood pressure 105/65. Heart rate is running in the low 100s and seems to be controlled, telemetry is atrial flutter at 94. Patient has been on amiodarone 400 mg twice daily and Lopressor 50 mg twice daily. He denies having any chest pain or palpitations. Repeat blood work reveals WBC 13.5, hemoglobin 13.6. BUN 85 and creatinine 2.75, potassium 4.1. 03/22 Patient is seen today in follow-up. Last evening, patient went into A-fib with RVR at 140 bpm and started on Cardizem drip. His heart rate is now controlled in the 60s and 70s. Blood pressure 112/59, pulse ox 100% on room air. Patient denies chest pain or palpitations. Repeat blood work reveals sodium 133, potassium 3.4, BUN 74 creatinine 2.86.. 03/23/2024 Patient is seen in follow-up today. He continues to be in atrial fibrillation but his heart rates are better controlled. Hemodynamically stable. Plan for hemodialysis today. March 24, 2024 Telemetry shows atrial fibrillation but rate controlled, heart rate around 71 bpm. Patient's heart rate has been controlled over last 12 hours. He received hemodialysis session yesterday tolerated well. BP 98/55 today, labs shows WBC 13, HbA1c 12.8, platelets 148, BUN 67, creatinine 2.5 PHYSICAL EXAMINATION Vital signs reviewed. CONSTITUTIONAL: No apparent distress. HEENT: Head is normocephalic. Pupils are equal, round. Sclerae anicteric. CHEST EXAMINATION: poor respiratory effort, mild crackles audible HEART EXAMINATION: irregular rhythm. S1, S2 heard. No murmurs, gallops or rub. ABDOMEN: Soft, nontender. Positive bowel sounds. EXTREMITIES: 1+ peripheral pulses, 1+ pitting edema bilateral lower extremity NEUROLOGIC EXAMINATION: Patient is awake, alert, oriented . Detailed exam was not performed ASSESSMENT Acute on chronic respiratory failure related to component of possible COPD exacerbation with audible wheezing plus component of heart failure/kidney failure Acute on chronic systolic heart failure Acute kidney injury and chronic kidney disease stage IV, patient started on dialysis 03/18 Elevated troponins, related to chronic kidney disease, not indicative of ischemia or injury New onset paroxysmal atrial flutter typical/atrial fibrillation with RVR, patient continues to have intermittent episodes of RVR New onset ischemic cardiomyopathy with EF of 35 to 40% CAD with prior history of stenting Hypertension Hyperlipidemia Diabetes mellitus type 2 History of COPD Decreased appetite may be related to progressive CKD Typical atrial flutter/fibrillation, new onset with RVR PLAN Echo showing LV EF 35-40% which may also be in part related to tachy induced Toprol XL to 100 mg twice daily Continue amiodarone to 200 mg twice daily and Eliquis 2.5 mg twice daily. Reduce amiodarone to 200 mg daily starting 03/27/2024 Continue telemetry monitoring Not able to intensify further GDMT because of low BP and low kidney function Patient will be considered for outpatient ischemic workup. Objective - Vital Signs Vital signs: Vital Signs Temp 97.0 F L 03/24/24 08:12 Pulse 77 03/24/24 08:15 Resp 18 03/24/24 08:15 BP 98/55 03/24/24 08:12 Pulse Ox 97 03/24/24 08:12 FiO2 Intake & Output 03/23/24 03/24/24 03/24/24 18:59 06:59 18:59 Intake Total 1290 240 Output Total 1635 400 Balance -345 -400 240 Weight 116 kg Intake: Oral 240 240 Hemodialysis 1050 Output: Urine 425 400 Hemodialysis 1210 Other: Voiding Method Indwelling Catheter Indwelling Catheter Indwelling Catheter - Labs CBC & Chem 7: 03/24/24 07:06 03/24/24 07:06 Labs: Abnormal Lab Results - Last 24 Hours (Table) 03/23/24 03/23/24 03/23/24 Range/Units 11:33 16:34 20:23 WBC (3.8-10.6) k/uL Hgb (13.0-17.5) gm/dL MCHC (31.0-37.0) g/dL Plt Count (150-450) k/uL Potassium (3.5-5.1) mmol/L BUN (9-20) mg/dL Creatinine (0.66-1.25) mg/dL POC Glucose (mg/dL) 117 H 133 H 209 H (70-110) mg/dL Calcium (8.4-10.2) mg/dL 03/24/24 03/24/24 03/24/24 Range/Units 06:08 06:37 06:58 WBC (3.8-10.6) k/uL Hgb (13.0-17.5) gm/dL MCHC (31.0-37.0) g/dL Plt Count (150-450) k/uL Potassium (3.5-5.1) mmol/L BUN (9-20) mg/dL Creatinine (0.66-1.25) mg/dL POC Glucose (mg/dL) 41 L* 62 L 69 L (70-110) mg/dL Calcium (8.4-10.2) mg/dL 03/24/24 03/24/24 Range/Units 07:06 07:06 WBC 13.1 H (3.8-10.6) k/uL Hgb 12.8 L (13.0-17.5) gm/dL MCHC 30.9 L (31.0-37.0) g/dL Plt Count 148 L (150-450) k/uL Potassium 3.4 L (3.5-5.1) mmol/L BUN 67 H (9-20) mg/dL Creatinine 2.56 H (0.66-1.25) mg/dL POC Glucose (mg/dL) (70-110) mg/dL Calcium 7.9 L (8.4-10.2) mg/dL
[2024-03-24 11:22] LABS: Glucose,Whole Blood 150 mg/dL (70-110)
--- NOTE | 2024-03-24 12:26 | P.PN ---
Subjective Progress Note Date: 03/24/24 Patient is an 78-year-old white male with past medical history significant for COPD, obstructive sleep apnea, coronary artery disease, hypertension, hyperlipidemia, chronic kidney disease, BPH and previous TURP. His primary care provider is Dr. Isbell. Did follow with Dr. Delacruz in the pulmonary office in the past, but has not been back in some time. He is known to have moderate COPD. Patient presented to emergency room yesterday complaining of about 4 weeks of worsening shortness of breath. Accompanied by chest tightness, wheezing, cough with green phlegm. Chest x-ray on arrival showed low lung volumes and general hazy appearance, atelectasis versus pulmonary edema. Also, noted to be more confused at home. ABG was drawn in the emergency department, with a PaO2 of 93, pCO2 of 37, pH of 7.36. He is also has had issues with frequent urination and incomplete voiding. He has history of urinary retention and underwent previous TURP in the past. Denies any burning or dysuria. Denies suprapubic pain. Denies fevers. Urinalysis positive for leukocyte esterase and bacteria. CBC: WBC count 12.1, hemoglobin 12.8, hematocrit 40.5, platelets 274. CMP: Sodium 143, potassium 4.2, chloride 110, serum bicarb 20, BUN 87, creatinine 4.44, glucose 72. Does have an indwelling urinary catheter. lactic 2. LFTs not elevated. Troponin 0.047. NT proBNP 4860. Negative for influenza, RSV, COVID. He is currently sitting up at the edge of the bed, reportedly just got up to use the bathroom. Seems to be oriented. He is on 2 L/min nasal cannula. SpO2 is 98%. He has audible wheezing. Vital signs are stable. The patient is seen today March 15, 2024 in follow-up on the selective care unit. He is currently sitting up in bed. Awake and alert in no acute distress. He is maintaining good O2 saturations in the 90s on 3 L/min per nasal cannula. No IV fluids. He is feeling better today compared to yesterday. Still somewhat bronchospastic and wheezing. He is continued on DuoNeb inhalations, Pulmicort and Perforomist inhalations, IV Solu-Medrol. He is on antibiotics in the form of ceftriaxone. Currently on a Cardizem drip at 10 mg/h. He did develop atrial fibrillation with a rapid ventricular response today. Urine culture positive for gram-negative bacilli. Blood culture revealing no growth. Sputum culture revealing no growth. White count 16.7. Hemoglobin 11.7. Platelets 212. Sodium 134. Potassium 5.0. Bicarb 20. BUN 94. Creatinine 4.88. Glucose 300. Procalcitonin 0.26. The patient is seen today March 16, 2024 in follow-up on the selective care unit. He is currently resting in bed. Awake and alert in no acute distress. He is maintaining O2 saturations in the 90s on room air. He is continued on a heparin drip. Continue on amiodarone drip at 0.5 mg/min. He is continued on DuoNeb inhalations, Pulmicort and Perforomist inhalations, Solu-Medrol at 40 mg every 8 hours. The patient is still somewhat bronchospastic and wheezing. He remains in atrial fibrillation with a better controlled ventricular response. He is on antibiotics in the form of ceftriaxone. Urine culture was positive for Klebsiella pneumoniae. Sputum culture revealed no growth. Blood cultures revealed no growth. White count 15.5. Hemoglobin 11.5. Platelets 212. Sodium 131. Potassium 4.9. Bicarb 17. BUN 113. Creatinine 4.79. Glucose 303. He has been initiated on sodium bicarb tablets. Current urine output 450 mL. The patient is seen today March 17, 2024 in follow-up on the selective care unit. He is currently resting comfortably in bed. Awake and alert in no acute distress. Maintaining good O2 saturations in the 90s on 2 L/min per nasal cannula. He remains on a heparin drip. He remains on DuoNeb inhalations, Pulmicort and Perforomist inhalations, Solu-Medrol. Antibiotics in the form of ceftriaxone. White count 15.2. Hemoglobin 12.1. Platelets 200,000. Sodium 136. Potassium 4.5. Bicarb 19. BUN 119. Creatinine 5.47. Glucose 176. Ur ine culture was positive for Klebsiella pneumoniae. Blood cultures revealed no growth. Sputum culture revealed no growth. Nephrology is following for possible renal replacement therapy. Chest x-ray reveals mild cardiomegaly and mild pulmonary vascular congestion. On 03/18/2024, the patient is being seen for a follow-up. The patient is known to have COPD, obstructive sleep apnea, coronary disease, hypertension hyperlipidemia chronic kidney disease. The patient also suffers from BPH and he has undergone previous TURP. The patient is not currently undergoing hemodialysis. He is on room air oxygen. Main complaint is some limited residual cough. Patient also being treated for an underlying urine tract infection with Klebsiella and the patient is currently on IV Rocephin. No other specific complaints. White cell count of 16.6 with a hemoglobin 12.8 and a platelet count of 215. The BUN levels at 137 with a potassium level of 5.1 and a sodium level is at 137 and a potassium level is at 4.1. Free T4 is at 0.9 with a TSH of 0.38. The patient remains on DuoNeb updrafts. The patient is on Levemir insulin. The patient is on oral bicarb. The urine output remains active and the patient is producing adequate amount of urine output and remains in negative fluid balance. Nephrology is on the case for now. Remains on bronchodilators. Remains on steroids. The chest x-ray that was done on 03/17/2024 showed mild cardiomegaly and pulm vessel congestion and some atelectatic change in lung base bilaterally. 03/19/2024, I am seeing the patient for a follow-up. Patient is resting comfortably in bed. The patient is currently on room air oxygen. Denies having any significant shortness of breath at rest. No chest pain. No angina or palpitations. The patient underwent hemodialysis yesterday. His current oxygenation stable on room air oxygen. Meanwhile, the patient was noted to have some increased tachycardia with atrial fibrillation. Cardiology on the case. The patient is currently on metoprolol and the dose was increased up to 50 mg twice a day. Will monitor his blood pressure response. Continue bronchodilators. Continue steroids. Continue Levemir insulin 40 units every 12 hours and sliding scale coverage. Continue IV Rocephin. The patient's white cell count is at 15.7 with a hemoglobin of 13.1 and a platelet count of 186. BUN is 117 with a creatinine of 3.84 and sodium levels at 135. Patient is being seen by cardiology and nephrology. The patient has mentioned sustaining acute kidney injury on top of chronic kidney disease. Started on hemodialysis on 03/18/2024. Hemodynamically stable. Reynolds catheter is in place. A second treatment with dialysis to be done today and the third tomorrow. His chest x- ray from today shows cardiomegaly and mild interstitial prominence nasal congestion heart failure. On 03/20/2024, the patient is being seen for a follow-up. The patient is stable on room air oxygen. He is undergoing hemodialysis today. Remains on bronchodilators. Remains on Solu-Medrol and the patient has been weaned down to 40 mg IV every 12 hours. Limited cough and congestion. Remains on DuoNeb AND remains on Perforomist and Pulmicort nebulized treatment twice a day. No chest pain. Volume status is improving. The BUN is at 105 with a creatinine of 3.46 and a sodium level is 138 and a potassium level is at 3.9. Hematologic profile from 03/19/2024 showed a white cell count of 15.7 and hemoglobin of 15.1. The patient's urine culture is positive for Klebsiella pneumonia and this urine culture was collected on 03/13/2024. On 03/21/2024, the patient is undergoing hemodialysis. Resting comfortably in bed on room air oxygen. No specific complaints. No significant events overnight. The patient has an underlying A-fib/flutter. He is currently on metoprolol 50 mg p.o. twice daily and amiodarone 4 mg p.o. twice a day. No angina. No palpitation. No altered mentation. Labs from today shows a white cell count of 13 with a hemoglobin of 15 and a platelet count of 159. BUN is 85 with a creatinine of 2.75 and a sodium level is 134. Remains on DuoNeb updrafts 4 times a day in addition to performance of Pulmicort nebulized treatments twice a day. Solu-Medrol was weaned down to 40 mg every 12 hours. Rest of the me dications remain unchanged. On 03/22/2024, the patient is being seen for a follow-up. Calm and comfortable. No specific complaints. No plans for hemodialysis today. The patient denies having significant shortness of breath. No chest pain. He remains on room air oxygen. BUN 74 with a creatinine of 2.8. Potassium is at 3.4. Remains on DuoNeb treatments on the clock. Remains on IV Solu-Medrol and the patient is going to be started on prednisone burst taper. Remains on Levemir insulin 40 u nits twice a day. Remains on anticoagulation with Eliquis 2.5 mg p.o. twice a day. On 03/23/2024, the patient is being seen for a follow-up. Resting comfortably in bed. No specific complaints. No dialysis for today. Clinically stable. Hemodynamically stable. Labs from today are pending. No significant events overnight. Patient remains on same medication. The patient was taken off IV Solu-Medrol and the patient currently on a prednisone burst taper starting with 40 mg p.o. daily. 03/24/2024, patient is being seen for a follow-up. Resting comfortably in bed. Urine output is improved and the patient continues to produce excellent amount of urine output. Renal function also is improving. The patient has not had any dialysis over the weekend. Respiratory status is stable. No respiratory difficulties., Comfortable on room air oxygen and resting comfortably in bed. He was admitted 13 with a total of 4.8 and a platelet count of 148. BUN 16 with a creatinine of 2.56 and a sodium levels of 137. Completing a prednisone burst taper. He is currently on [facility]. Objective - Vital Signs Vital signs: Vital Signs Temp 97.0 F L 03/24/24 08:12 Pulse 77 03/24/24 08:12 Resp 18 03/24/24 08:12 BP 98/55 03/24/24 08:12 Pulse Ox 97 03/24/24 08:12 FiO2 Intake & Output 03/23/24 03/24/24 03/24/24 18:59 06:59 18:59 Intake Total 1290 240 Output Total 1635 400 Balance -345 -400 240 Weight 116 kg Intake: Oral 240 240 Hemodialysis 1050 Output: Urine 425 400 Hemodialysis 1210 Other: Voiding Method Indwelling Catheter Indwelling Catheter - Exam GENERAL EXAM: Alert, pleasant 78-year-old male, on room air oxygen, comfortable in no acute distress. HEAD: Normocephalic and atraumatic EYES: Normal reaction of pupils, equal size. NOSE: Clear with pink turbinates. THROAT: No erythema or exudates. NECK: No masses, no JVD. CHEST: No chest wall deformity. LUNGS: Equal air entry with bilateral expiratory wheezes. CVS: S1 and S2 normal with no audible murmur, regular rhythm. No extra heart sounds ABDOMEN: No hepatosplenomegaly, active bowel sounds, no guarding or rigidity. SPINE: No scoliosis or deformity SKIN: No rashes CENTRAL NERVOUS SYSTEM: No focal deficits, tone is normal in all 4 extremities. EXTREMITIES: There is no peripheral edema, clubbing, or cyanosis. Peripheral pulses are intact. - Labs CBC & Chem 7: 03/24/24 07:03/24/24 07:06 Labs: Abnormal Lab Results - Last 24 Hours (Table) 03/23/24 03/23/24 03/23/24 Range/Units 11:33 16:34 20:23 WBC (3.8-10.6) k/uL Hgb (13.0-17.5) gm/dL MCHC (31.0-37.0) g/dL Plt Count (150-450) k/uL Potassium (3.5-5.1) mmol/L BUN (9-20) mg/dL Creatinine (0.66-1.25) mg/dL POC Glucose (mg/dL) 117 H 133 H 209 H (70-110) mg/dL Calcium (8.4-10.2) mg/dL 03/24/24 03/24/24 03/24/24 Range/Units 06:08 06:37 06:58 WBC (3.8-10.6) k/uL Hgb (13.0-17.5) gm/dL MCHC (31.0-37.0) g/dL Plt Count (150-450) k/uL Potassium (3.5-5.1) mmol/L BUN (9-20) mg/dL Creatinine (0.66-1.25) mg/dL POC Glucose (mg/dL) 41 L* 62 L 69 L (70-110) mg/dL Calcium (8.4-10.2) mg/dL 03/24/24 03/24/24 Range/Units 07:06 07:06 WBC 13.1 H (3.8-10.6) k/uL Hgb 12.8 L (13.0-17.5) gm/dL MCHC 30.9 L (31.0-37.0) g/dL Plt Count 148 L (150-450) k/uL Potassium 3.4 L (3.5-5.1) mmol/L BUN 67 H (9-20) mg/dL Creatinine 2.56 H (0.66-1.25) mg/dL POC Glucose (mg/dL) (70-110) mg/dL Calcium 7.9 L (8.4-10.2) mg/dL Assessment and Plan Plan: Acute hypoxemic respiratory failure, recovered and on room air, likely secondary to acute COPD exacerbation and a systolic CHF exacerbation. Favor CHF with fluid overload in the setting of an acute on chronic kidney failure. The patient is currently undergoing hemodialysis. The chest x-ray on arrival showed low lung volumes and general hazy appearance, atelectasis versus pulmonary edema. NT proBNP was elevated at 4860. Negative for influenza, RSV, COVID. Noted the patient is currently on room air oxygen. Repeat chest x-ray from 03/19/2024 shows cardiomegaly with mild pulm venous congestion. No dyspnea at rest. Patient is currently on room air oxygen. Atrial fibrillation with a rapid ventricular response, and the most recent EKG from today is consistent with flutter. The patient is on amiodarone. The metoprolol has been increased to 50 mg twice a day. Anticoagulation as per cardiology. Acute exacerbation of chronic systolic congestive heart failure. Ejection fraction 35 to 40%. Global hypokinesis. Volume status is improved. Clinically improved. No signs of any decompensated heart failure at this point in time. Acute on chronic kidney disease, possibly postobstructive secondary to retention, patient has indwelling urinary catheter placed, producing adequate amount of urine output and the patient is also being dialyzed. Nephrology on the case. Hemodialysis was started on 03/18/2024. Currently undergoing hemodialysis. Nephrology on the case. Renal function continues to improve and the patient is producing adequate amount of urine output. Urinary tract infection secondary to Klebsiella pneumoniae, currently on ceftriaxone, completed the course of antibiotics. Elevated troponin, possibly supply/demand related Chronic kidney disease stage IV History of BPH with previous TURP History of hyperlipidemia History of hypertension History of diabetes mellitus History of coronary artery disease with previous PCI/stent Moderate chronic obstructive pulmonary disease Obstructive sleep apnea Obesity, with a BMI of 38.9 kg/m Plan: Clinically stable. Hemodynamically stable. Last hemodialysis session was on 03/21/2024, since then the creatinine is im proving and the patient is producing adequate amount of urine output. There may be no further need for hemodialysis as long as the patient continues to improve. Patient is currently on room air oxygen Shortness of breath is improved and the patient is some residual cough continues to be on bronchodilators and steroids. The patient is on a prednisone burst taper starting with 40 mg Management of atrial flutter per cardiology. The patient is currently on amiodarone and metoprolol Continue renal replacement therapy per nephrology Continue DuoNeb, Pulmicort and Perforomist inhalations Keep Reynolds catheter in place, producing adequate amount of urine output. Hemodialysis today. Increase his activity as tolerated We will continue to follow
--- NOTE | 2024-03-24 12:30 | P.PN ---
Subjective Patient is seen for follow-up for acute kidney injury and chronic kidney disease stage IV with baseline creatinine 2.6 to 2.8 mg/dL. Now on hemodialysis Admitted to the hospital with complaints of shortness of breath and weakness. Cardiomyopathy with a EF of 35 to 40%. Started hemodialysis this admission on 03/18/2024. No significant complaints. Objective - Vital Signs Vital signs: Vital Signs Temp 97.0 F L 03/24/24 08:12 Pulse 76 03/24/24 11:54 Resp 18 03/24/24 11:27 BP 103/64 03/24/24 11:27 Pulse Ox 99 03/24/24 11:27 FiO2 Intake & Output 03/23/24 03/24/24 03/24/24 18:59 06:59 18:59 Intake Total 1290 360 Output Total 1635 400 Balance -345 -400 360 Weight 116 kg Intake: Oral 240 360 Hemodialysis 1050 Output: Urine 425 400 Hemodialysis 1210 Other: Voiding Method Indwelling Catheter Indwelling Catheter Indwelling Catheter - Exam Patient is awake, comfortable, no acute distress. Examination of the heart S1 and S2 Examination of the lungs decreased breath sounds at the bases with bilateral wheezing Abdomen is soft obese nontender Examination of lower extremity shows no significant edema, chronic skin changes. DIRECTOR AIRPORT exam grossly intact - Labs CBC & Chem 7: 03/24/24 07:06 03/24/24 07:06 Labs: Abnormal Lab Results - Last 24 Hours (Table) 03/23/24 03/23/24 03/24/24 Range/Units 16:34 20:23 06:08 WBC (3.8-10.6) k/uL Hgb (13.0-17.5) gm/dL MCHC (31.0-37.0) g/dL Plt Count (150-450) k/uL Potassium (3.5-5.1) mmol/L BUN (9-20) mg/dL Creatinine (0.66-1.25) mg/dL POC Glucose (mg/dL) 133 H 209 H 41 L* (70-110) mg/dL Calcium (8.4-10.2) mg/dL 03/24/24 03/24/24 03/24/24 Range/Units 06:37 06:58 07:06 WBC 13.1 H (3.8-10.6) k/uL Hgb 12.8 L (13.0-17.5) gm/dL MCHC 30.9 L (31.0-37.0) g/dL Plt Count 148 L (150-450) k/uL Potassium (3.5-5.1) mmol/L BUN (9-20) mg/dL Creatinine (0.66-1.25) mg/dL POC Glucose (mg/dL) 62 L 69 L (70-110) mg/dL Calcium (8.4-10.2) mg/dL 03/24/24 03/24/24 Range/Units 07:06 11:21 WBC (3.8-10.6) k/uL Hgb (13.0-17.5) gm/dL MCHC (31.0-37.0) g/dL Plt Count (150-450) k/uL Potassium 3.4 L (3.5-5.1) mmol/L BUN 67 H (9-20) mg/dL Creatinine 2.56 H (0.66-1.25) mg/dL POC Glucose (mg/dL) 150 H (70-110) mg/dL Calcium 7.9 L (8.4-10.2) mg/dL Assessment and Plan Assessment: 1. Acute kidney injury secondary to ATN secondary to cardiorenal syndrome and hemodynamic instability. Creatinine 5.11 dated March 18, 2024. Elevated BUN due to acute kidney injury as well as steroids. Nonoliguric. No hydronephrosis not ed on kidney ultrasound. Right kidney atrophic. Started on hemodialysis March 18, 2024. Has permacath. 2. Chronic kidney disease stage IV secondary to diabetic kidney disease and nephrosclerosis with baseline creatinine 2.5-2.8. 3. Acute on chronic systolic CHF with ejection fraction of 35 to 40%. 4. Klebsiella UTI on antibiotics. 5. Urinary retention. Has Reynolds catheter. On Flomax. Urology following. 6. Volume overload. 7. Chronic kidney disease mineral bone disease maintained on calcitriol. 8. A-fib with RVR maintained on oral amiodarone and metoprolol. 9. Metabolic acidosis secondary to acute kidney injury. On oral bicarb. Stable. 10. Hyperphosphatemia secondary to acute kidney injury. On PhosLo. Phosphorus level 5.9 dated March 17, 2024. Plan: continue hemodialysis on a Monday schedule.
[2024-03-24 14:46] LABS: Glucose,Whole Blood 185 mg/dL (70-110)
[2024-03-24] MEDS ORDERED: Potassium Replacement Protocol 1 EACH MISC MISCELLANE PRN (15:09)
[2024-03-24] MEDS: POTASSIUM CHLORIDE ER 20 MEQ TAB.ER PO SCH (15:21)
[2024-03-24] MEDS: FUROSEMIDE 10 MG/ML 10 ML VIAL IV STA ×2 (15:21→22:48)
[2024-03-24 16:16] LABS: Glucose,Whole Blood 210 mg/dL (70-110)
--- NOTE | 2024-03-24 16:27 | XR ---
EXAMINATION TYPE: XR chest 1V portable DATE OF EXAM: 03/24/2024 4:11 PM CLINICAL INDICATION:Male, 78 years old with history of SOB; COMPARISON: Chest radiographs from 03/20/2024. TECHNIQUE: XR chest 1V portable Frontal view of the chest. FINDINGS: Lungs/Pleura: There is no evidence of pleural effusion, focal consolidation, or pneumothorax. Pulmonary vascularity: Mild pulmonary vascular congestion. Heart/mediastinum: Cardiomediastinal silhouette is enlarged and stable. Musculoskeletal: No acute osseous pathology. Other findings: None Lines/Tubes: Right internal jugular central venous catheter with distal tip at the superior vena cava.; 03/20/2024. IMPRESSION: 1. Central venous catheter in high position with tip in the superior vena cava. Consider advancement of 5 cm for optimal placement. 2. Mild pulmonary vascular congestion and cardiomegaly.
[2024-03-24 19:58] LABS: Glucose,Whole Blood 222 mg/dL (70-110)
[2024-03-24] MEDS: INSULIN DETEMIR (LEVEMIR) 100 UNIT/ML SYR SQ SCH (22:09)
[2024-03-25 02:19] LABS: Glucose,Whole Blood 186 mg/dL (70-110)
--- NOTE | 2024-03-25 05:26 | P.PN ---
Subjective Progress Note Date: 03/24/24 78-year-old white male with past medical history significant for COPD, obstructive sleep apnea, coronary artery disease, hypertension, hyperlipidemia, chronic kidney disease, BPH and previous TURP. Patient presented to emergency room complaining of about 4 weeks of worsening shortness of breath. Accompanied by chest tightness, wheezing, cough with green phlegm. Chest x-ray on arrival showed low lung volumes and general hazy appearance, atelectasis versus pulmonary edema. Also, noted to be more confused at home. ABG was drawn in the emergency department, with a PaO2 of 93, pCO2 of 37, pH of 7.36. He is also has had issues with frequent urination and incomplete voiding. He has history of urinary retention and underwent previous TURP in the past. Denies any burning or dysuria. Denies suprapubic pain. Denies fevers. Urinalysis positive for leukocyte esterase and bacteria. CBC: WBC count 12.1, hemoglobin 12.8, hematocrit 40.5, platelets 274. CMP: Sodium 143, potassium 4.2, chloride 110, serum bicarb 20, BUN 87, creatinine 4.44, glucose 72. Does have an indwelling urinary catheter. lactic 2. LFTs not elevated. Troponin 0.047. NT proBNP 4860. Negative for influenza, RSV, COVID. 24-hour interval change 03/23/2024 --the patient is seen and evaluated in room at bedside for a follow-up. Resting comfortably in bed. No specific complaints. No dialysis for today. Vital signs are reviewed and remained stable Labs from today are pending. No significant events overnight. -- patient is being followed by pulmonary service and was taken off IV Solu-Med rol and the patient currently on a prednisone burst taper starting with 40 mg p.o. daily. Nephrology is following for renal replacement therapy; patient is scheduled for hemodialysis today with recommendations to continue hemodialysis on Monday and Monday Remains in atrial fibrillation with RVR and is maintained on oral amiodarone and metoprolol 03/24/2024 patient is seen and evaluated in room at bedside. Resting comfortably in bed. Urine output is improved and the patient continues to produce excellent amount of urine output. Renal function also is improving. The patient underwent dialysis yesterday. Respiratory status is stable. No respiratory diff iculties., Comfortable on room air oxygen and resting comfortably in bed. He was admitted 13 with a total of 4.8 and a platelet count of 148. BUN 16 with a creatinine of 2.56 and a sodium levels of 137. Completing a prednisone burst taper. He is currently on [facility]. Cardiology following atrial fibrillation with RVR; rate controlled last 24 hours; Echo showing LV EF 35-40% which may also be in part related to tachy induced Toprol XL to 100 mg twice daily; Continue amiodarone to 200 mg twice daily and Eliquis 2.5 mg twice daily. Reduce amiodarone to 200 mg daily starting 03/27/2024 Objective - Vital Signs Vital signs: Vital Signs Temp 98.2 F 03/23/24 20:14 Pulse 76 03/24/24 07:59 Resp 18 03/24/24 03:58 BP 109/76 03/24/24 03:58 Pulse Ox 94 L 03/24/24 03:58 FiO2 Intake & Output 03/23/24 03/24/24 03/24/24 18:59 06:59 18:59 Intake Total 1290 240 Output Total 1635 400 Balance -345 -400 240 Weight 116 kg Intake: Oral 240 240 Hemodialysis 1050 Output: Urine 425 400 Hemodialysis 1210 Other: Voiding Method Indwelling Catheter Indwelling Catheter - Exam GENERAL EXAM: Alert, pleasant 78-year-old male, on room air oxygen, comfortable in no acute distress. HEAD: Normocephalic and atraumatic EYES: Normal reaction of pupils, equal size. NECK: No masses, no JVD. CHEST: No chest wall deformity. LUNGS: Equal air entry with bilateral expiratory wheezes. CVS: S1 and S2 normal with no audible murmur, regular rhythm. No extra heart sounds ABDOMEN: No hepatosplenomegaly, active bowel sounds, no guarding or rigidity. CENTRAL NERVOUS SYSTEM: No focal deficits, tone is normal in all 4 extremities. EXTREMITIES: There is no peripheral edema, clubbing, or cyanosis. Peripheral pulses are intact. - Labs CBC & Chem 7: 03/24/24 07:06 03/24/24 07:06 Labs: Abnormal Lab Results - Last 24 Hours (Table) 03/23/24 03/23/24 03/23/24 Range/Units 11:33 16:34 20:23 WBC (3.8-10.6) k/uL Hgb (13.0-17.5) gm/dL MCHC (31.0-37.0) g/dL Plt Count (150-450) k/uL POC Glucose (mg/dL) 117 H 133 H 209 H (70-110) mg/dL 03/24/24 03/24/24 03/24/24 Range/Units 06:08 06:37 06:58 WBC (3.8-10.6) k/uL Hgb (13.0-17.5) gm/dL MCHC (31.0-37.0) g/dL Plt Count (150-450) k/uL POC Glucose (mg/dL) 41 L* 62 L 69 L (70-110) mg/dL 03/24/24 Range/Units 07:06 WBC 13.1 H (3.8-10.6) k/uL Hgb 12.8 L (13.0-17.5) gm/dL MCHC 30.9 L (31.0-37.0) g/dL Plt Count 148 L (150-450) k/uL POC Glucose (mg/dL) (70-110) mg/dL Assessment and Plan Assessment: 1. Acute hypoxemic respiratory failure; likely secondary to acute COPD exacerbation and a systolic CHF exacerbation. --The patient is currently undergoing hemodialysis. The chest x-ray on arrival showed low lung volumes and general hazy appearance, atelectasis versus pulmonary edema. NT proBNP was elevated at 4860. Negative for influenza, RSV, COVID. Noted the patient is currently on room air oxygen. Repeat chest x-ray from 03/19/2024 shows cardiomegaly with mild pulm venous congestion. No dyspnea at rest. 2. Atrial fibrillation with a rapid ventricular response; --recent EKG from today is consistent with flutter; patient is on amiodarone; metoprolol has been increased to 50 mg twice a day. Anticoagulated with Eliquis 2.5 mg twice daily 3. Acute exacerbation of chronic systolic congestive heart failure. Ejection fraction 35 to 40%. Global hypokinesis 4. Acute on chronic kidney disease stage IV, possibly postobstructive secondary to retention, patient has indwelling urinary catheter placed, producing adequate amount of urine output. Nephrology on board. -- Hemodialysis was started on 03/18/2024. Currently undergoing hemodialysis. 5. Urinary tract infection secondary to Klebsiella pneumoniae; completed the course of antibiotics. 6. History of hyperlipidemia; currently not on any statin therapy 7. History of hypertension; metoprolol 100 mg twice daily 8. History of diabetes mellitus; patient takes Lantus 60 units subcu daily along with glipizide 5 mg twice daily; monitor Accu-Cheks before meals and at bedtime with insulin sliding scale 9. History of coronary artery disease with previous PCI/stent VT prophylaxis; SCDs/Eliquis CODE STATUS; DNR
[2024-03-25 06:31] LABS: Glucose,Whole Blood 130 mg/dL (70-110)
[2024-03-25 08:52] LABS: African American GFR (CKD) 18 (>60 ml/min/1.73 sqM); Anion Gap 6 mmol/L; Blood Urea Nitrogen 89 mg/dL (9-20); Carbon Dioxide 31 mmol/L (22-30); Chloride 100 mmol/L (98-107); Glucose 90 mg/dL (74-99); Non-African American GFR(CKD) 15 (>60 ml/min/1.73 sqM); Potassium 3.7 mmol/L (3.5-5.1); Sodium 137 mmol/L (137-145)
[2024-03-25 08:53] LABS: Basophils % (A) 0 %; Eosinophils # (A) 0.1 k/uL (0-0.7); Eosinophils % (A) 1 %; HCT 41.1 % (39.0-53.0); HGB 12.6 gm/dL (13.0-17.5); Lymphocytes # (A) 1.2 k/uL (1.0-4.8); Lymphocytes % (A) 9 %; MCH 28.6 pg (25.0-35.0); MCHC 30.7 g/dL (31.0-37.0); MCV 93.2 fL (80.0-100.0); Mean Platelet Volume 8.1; Monocytes # (A) 0.8 k/uL (0-1.0); Monocytes % (A) 6 %; Neutrophils # (A) 10.7 k/uL (1.3-7.7); Neutrophils % (A) 83 %; Platelet Count 148 k/uL (150-450); RBC 4.41 m/uL (4.30-5.90); RDW 14.5 % (11.5-15.5); WBC 12.8 k/uL (3.8-10.6)
[2024-03-25 11:25] LABS: Glucose,Whole Blood 262 mg/dL (70-110)
--- NOTE | 2024-03-25 12:13 | P.PN ---
Subjective Patient is seen for follow-up for acute kidney injury and chronic kidney disease stage IV with baseline creatinine 2.6 to 2.8 mg/dL. Now on hemodialysis Admitted to the hospital with complaints of shortness of breath and weakness. Cardiomyopathy with a EF of 35 to 40%. Started hemodialysis this admission on 03/18/2024. patient was quite short of breath yesterday and received extra dose of IV Lasix. He remains short of breath but improved from yesterday. Patient will be scheduled for extra hemodialysis treatment today. Objective - Vital Signs Vital signs: Vital Signs Temp 97.6 F 03/25/24 09:05 Pulse 68 03/25/24 11:42 Resp 18 03/25/24 11:25 BP 124/66 03/25/24 11:25 Pulse Ox 100 03/25/24 11:25 FiO2 Intake & Output 03/24/24 03/25/24 03/25/24 18:59 06:59 18:59 Intake Total 600 118 Output Total 350 1300 Balance 250 -1300 118 Weight 122.6 kg Intake: Oral 600 118 Output: Urine 350 1300 Other: Voiding Method Indwelling Catheter Indwelling Catheter Indwelling Catheter - Exam Patient is awake, comfortable, no acute distress. Examination of the heart S1 and S2 Examination of the lungs decreased breath sounds at the bases with bilateral wheezing Abdomen is soft obese nontender Examination of lower extremity shows no significant edema, chronic skin changes. QUALITY ENGINEER exam grossly intact - Labs CBC & Chem 7: 03/25/24 07:44 03/25/24 07:44 Labs: Abnormal Lab Results - Last 24 Hours (Table) 03/24/24 03/24/24 03/24/24 Range/Units 14:44 16:15 19:54 WBC (3.8-10.6) k/uL Hgb (13.0-17.5) gm/dL MCHC (31.0-37.0) g/dL Plt Count (150-450) k/uL Neutrophils # (1.3-7.7) k/uL Carbon Dioxide (22-30) mmol/L BUN (9-20) mg/dL Creatinine (0.66-1.25) mg/dL POC Glucose (mg/dL) 185 H 210 H 222 H (70-110) mg/dL Calcium (8.4-10.2) mg/dL 03/25/24 03/25/24 03/25/24 Range/Units 02:16 06:29 07:44 WBC 12.8 H (3.8-10.6) k/uL Hgb 12.6 L (13.0-17.5) gm/dL MCHC 30.7 L (31.0-37.0) g/dL Plt Count 148 L (150-450) k/uL Neutrophils # 10.7 H (1.3-7.7) k/uL Carbon Dioxide (22-30) mmol/L BUN (9-20) mg/dL Creatinine (0.66-1.25) mg/dL POC Glucose (mg/dL) 186 H 130 H (70-110) mg/dL Calcium (8.4-10.2) mg/dL 03/25/24 03/25/24 Range/Units 07:44 11:21 WBC (3.8-10.6) k/uL Hgb (13.0-17.5) gm/dL MCHC (31.0-37.0) g/dL Plt Count (150-450) k/uL Neutrophils # (1.3-7.7) k/uL Carbon Dioxide 31 H (22-30) mmol/L BUN 89 H (9-20) mg/dL Creatinine 3.53 H (0.66-1.25) mg/dL POC Glucose (mg/dL) 262 H (70-110) mg/dL Calcium 8.0 L (8.4-10.2) mg/dL Assessment and Plan Assessment: 1. Acute kidney injury secondary to ATN secondary to cardiorenal syndrome and hemodynamic instability. Creatinine 5.11 dated March 18, 2024. Elevated BUN due to acute kidney injury as well as steroids. Nonoliguric. No hydronephrosis noted on kidney ultrasound. Right kidney atrophic. Started on hemodialysis March 18, 2024. Has permacath. 2. Chronic kidney disease stage IV secondary to diabetic kidney disease and nephrosclerosis with baseline creatinine 2.5-2.8. 3. Acute on chronic systolic CHF with ejection fraction of 35 to 40%. 4. Klebsiella UTI on antibiotics. 5. Urinary retention. Has Reynolds catheter. On Flomax. Urology following. 6. Volume overload. 7. Chronic kidney disease mineral bone disease maintained on calcitriol. 8. A-fib with RVR maintained on oral amiodarone and metoprolol. 9. Metabolic acidosis secondary to acute kidney injury. On oral bicarb. Stable. 10. Hyperphosphatemia secondary to acute kidney injury. On PhosLo. Phosphorus level 5.9 dated March 17, 2024. Plan: extra hemodialysis treatment today and repeat in a.m. Patient will be maintained on Monday schedule as outpatient.
--- NOTE | 2024-03-25 13:45 | P.PN ---
Subjective HISTORY OF PRESENT ILLNESS: This is a pleasant 71-year-old with past medical history significant for COPD, CAD with prior stenting, diabetes mellitus type 2, hypertension, hyperlipidemia, chronic kidney disease. He follows in the office with Dr Ramos. He states that he has been having increased shortness of breath over last week and a half. He also has been having some upper abdominal achiness. Denies any specific chest pain or pressure. He has not really had an appetite over last few weeks. He does have chronic kidney disease with creatinine more than the 2.8 range however creatinine increased up before this admission. Denies any recent Motrin. No significant lightheadedness or dizziness. No recent changes to his medications. Chest x-ray performed which shows pulmonary vascular congestion. Patient also has diffuse wheezes on exam. EKG showing sinus rhythm with frequent PACs. Troponin 0.05, 0.05. Lactic acid 2.2. ProBNP 4860 03/15 Patient seen and examined. Patient went into atrial flutter with RVR with initial heart rates in the 140s and initially looked like SVT and therefore adenosine was given with no improvement. Patient was started on Cardizem drip with underlying atrial flutter waves. He does not have any history of atrial flutter. We discussed anticoagulation for stroke prevention patient is agree able. We will place patient on Lovenox in case he needs possible dialysis catheter placement. Denies any chest pain or pressure. He has been somewhat symptomatic with the atrial flutter with more shortness of breath. 03/16 Patient seen and examined. Patient states that his breathing is okay. No chest pain and no chest pressure. He does complain of cough. No palpitations. Plan is to start patient on hemodialysis on Monday. He is on a heparin drip which will be continued until after that. Blood pressure 117/56, heart rate 89, pulse ox 97% on room air. Repeat blood work reveals WBC 15.5, hemoglobin 11.5. Sodium 131, potassium 4.9, BUN 113, creatinine 4.79. Reviewed records from the office. Patient has not had an echocardiogram since 2016 which revealed EF of 50%. Patient has not been in the office since July 2018. Patient is also been maintained on IV amiodarone. He is off Cardizem drip. 03/17 Patient seen and examined. Blood pressure 128/63, heart rate 81, pulse ox 95% on 2 L nasal cannula. Patient remains in afib, controlled heart rate in the 80s- 90s. Repeat blood work reveals WBC 15.2, hemoglobin 12.1. Renal function has worsened and consult added for Dr. Marshall for dialysis catheter insertion. Yesterday, amiodarone was switched from IV to oral 400 mg twice daily. Patient is maintained on heparin drip until after catheter placement completed. Patient states he feels well today, no shortness of breath. 03/18 Patient is going from the room for insertion of dialysis catheter with plan to start hemodialysis today. Blood pressure 144/59, heart rate 84, pulse ox 98% on room air. Patient is maintained on heparin drip. 03/19 Patient had insertion of dialysis catheter done yesterday and started hemodialysis. His heart rate started running in the 120s during dialysis yesterday and he did have a drop in his blood pressure. This morning his heart rate started running in the 120s during dialysis yesterday and he did have a drop in his blood pressure with dialysis. This morning he is running in the 120s, atrial fibrillation, blood pressure 101/74, pulse ox 99% on 2 L. Yesterday, Lopressor was increased to 25 mg twice daily. 03/20 Patient continues to be in atrial fibrillation with heart rates better controlled in the low 100s. Repeat chest x-ray reveals moderate cardiomegaly with improving interstitium. Patient is scheduled for his third hemodialysis treatment today. He denies any new concerns today. No chest pain. No palpitations. Yesterday Toprol-XL was increased to 50 mg twice daily and he was continued on amiodarone 400 mg twice daily. Yesterday heparin drip was discontinued and started Eliquis. 03/21 Patient is undergoing hemodialysis now. Blood pressure 105/65. Heart rate is running in the low 100s and seems to be controlled, telemetry is atrial flutter at 94. Patient has been on amiodarone 400 mg twice daily and Lopressor 50 mg twice daily. He denies having any chest pain or palpitations. Repeat blood work reveals WBC 13.5, hemoglobin 13.6. BUN 85 and creatinine 2.75, potassium 4.1. 03/22 Patient is seen today in follow-up. Last evening, patient went into A-fib with RVR at 140 bpm and started on Cardizem drip. His heart rate is now controlled in the 60s and 70s. Blood pressure 112/59, pulse ox 100% on room air. Patient denies chest pain or palpitations. Repeat blood work reveals sodium 133, potassium 3.4, BUN 74 creatinine 2.86.. 03/23/2024 Patient is seen in follow-up today. He continues to be in atrial fibrillation but his heart rates are better controlled. Hemodynamically stable. Plan for hemodialysis today. March 24, 2024 Telemetry shows atrial fibrillation but rate controlled, heart rate around 71 bpm. Patient's heart rate has been controlled over last 12 hours. He received hemodialysis session yesterday tolerated well. BP 98/55 today, labs shows WBC 13, HbA1c 12.8, platelets 148, BUN 67, creatinine 2.5 March 25, 2024 Patient examined this morning at the bedside. Patient currently denies chest pain or pressure. He denies shortness of breath. However, patient was short of breath yesterday and required an extra dose of IV Lasix. Patient is scheduled to undergo an extra hemodialysis treatment today. PHYSICAL EXAM: VITAL SIGNS: Reviewed. GENERAL: Well-developed in no acute distress. NECK: Supple. No JVD or thyromegaly LUNGS: Respirations even and unlabored. Lungs essentially clear to auscultation bilaterally. HEART: Regular rate and rhythm. S1 and S2 heard. EXTREMITIES: Normal range of motion. No clubbing or cyanosis. Peripheral pulses intact. No lower extremity edema ASSESSMENT: Acute on chronic respiratory failure related to component of possible COPD exacerbation with audible wheezing plus component of heart failure/kidney failure Acute on chronic systolic heart failure Acute kidney injury and chronic kidney disease stage IV, patient started on dialysis 03/18 Elevated troponins, related to chronic kidney disease, not indicative of ischemia or injury, not clinically significant New onset paroxysmal atrial flutter typical/atrial fibrillation with RVR, pat ient continues to have intermittent episodes of RVR New onset cardiomyopathy with EF of 35 to 40%, ischemic versus nonischemic, may be tachycardia induced CAD with prior history of stenting Hypertension Hyperlipidemia Diabetes mellitus type 2 History of COPD PLAN: Continue current cardiac medications Continue anticoagulation with Eliquis Patient to undergo additional hemodialysis treatment today He is currently stable from a cardiac standpoint Consider outpatient ischemic workup due to new cardiomyopathy Further recommendations pending patient course Nurse practitioner note has been reviewed by physician. Signing provider agrees with the documented findings, assessment, and plan of care documented by PRESSURE TANK OPERATOR as a scribe. Objective - Vital Signs Vital signs: Vital Signs Temp 97.6 F 03/25/24 09:05 Pulse 68 03/25/24 11:42 Resp 18 03/25/24 11:25 BP 124/66 03/25/24 11:25 Pulse Ox 100 03/25/24 11:25 FiO2 Intake & Output 03/24/24 03/25/24 03/25/24 18:59 06:59 18:59 Intake Total 600 118 Output Total 350 1300 Balance 250 -1300 118 Weight 122.6 kg Intake: Oral 600 118 Output: Urine 350 1300 Other: Voiding Method Indwelling Catheter Indwelling Catheter Indwelling Catheter - Labs CBC & Chem 7: 03/25/24 07:44 03/25/24 07:44 Labs: Abnormal Lab Results - Last 24 Hours (Table) 03/24/24 03/24/24 03/24/24 Range/Units 14:44 16:15 19:54 WBC (3.8-10.6) k/uL Hgb (13.0-17.5) gm/dL MCHC (31.0-37.0) g/dL Plt Count (150-450) k/uL Neutrophils # (1.3-7.7) k/uL Carbon Dioxide (22-30) mmol/L BUN (9-20) mg/dL Creatinine (0.66-1.25) mg/dL POC Glucose (mg/dL) 185 H 210 H 222 H (70-110) mg/dL Calcium (8.4-10.2) mg/dL 03/25/24 03/25/24 03/25/24 Range/Units 02:16 06:29 07:44 WBC 12.8 H (3.8-10.6) k/uL Hgb 12.6 L (13.0-17.5) gm/dL MCHC 30.7 L (31.0-37.0) g/dL Plt Count 148 L (150-450) k/uL Neutrophils # 10.7 H (1.3-7.7) k/uL Carbon Dioxide (22-30) mmol/L BUN (9-20) mg/dL Creatinine (0.66-1.25) mg/dL POC Glucose (mg/dL) 186 H 130 H (70-110) mg/dL Calcium (8.4-10.2) mg/dL 03/25/24 03/25/24 Range/Units 07:44 11:21 WBC (3.8-10.6) k/uL Hgb (13.0-17.5) gm/dL MCHC (31.0-37.0) g/dL Plt Count (150-450) k/uL Neutrophils # (1.3-7.7) k/uL Carbon Dioxide 31 H (22-30) mmol/L BUN 89 H (9-20) mg/dL Creatinine 3.53 H (0.66-1.25) mg/dL POC Glucose (mg/dL) 262 H (70-110) mg/dL Calcium 8.0 L (8.4-10.2) mg/dL
[2024-03-25] MEDS: DILTIAZEM 125 MG in SODIUM CHLORIDE 0.9% 100 ML IV SCH (14:41)
--- NOTE | 2024-03-25 14:55 | P.PN ---
Subjective Progress Note Date: 03/25/24 Principal diagnosis: Acute hypoxic respiratory failure secondary to acute exacerbation of COPD and systolic congestive heart failure Patient is an 78-year-old white male with past medical history significant for COPD, obstructive sleep apnea, coronary artery disease, hypertension, hyperlipidemia, chronic kidney disease, BPH and previous TURP. His primary care provider is Dr. Isbell. Did follow with Dr. Delacruz in the pulmonary office in the past, but has not been back in some time. He is known to have moderate COPD. Patient presented to emergency room yesterday complaining of about 4 weeks of worsening shortness of breath. Accompanied by chest tightness, wheezin g, cough with green phlegm. Chest x-ray on arrival showed low lung volumes and general hazy appearance, atelectasis versus pulmonary edema. Also, noted to be more confused at home. ABG was drawn in the emergency department, with a PaO2 of 93, pCO2 of 37, pH of 7.36. He is also has had issues with frequent urination and incomplete voiding. He has history of urinary retention and underwent previous TURP in the past. Denies any burning or dysuria. Denies suprapubic pain. Denies fevers. Urinalysis positive for leukocyte esterase and bacteria. CBC: WBC count 12.1, hemoglobin 12.8, hematocrit 40.5, platelets 274. CMP: Sodium 143, potassium 4.2, chloride 110, serum bicarb 20, BUN 87, crea tinine 4.44, glucose 72. Does have an indwelling urinary catheter. lactic 2. LFTs not elevated. Troponin 0.047. NT proBNP 4860. Negative for influenza, RSV, COVID. He is currently sitting up at the edge of the bed, reportedly just got up to use the bathroom. Seems to be oriented. He is on 2 L/min nasal cannula. SpO2 is 98%. He has audible wheezing. Vital signs are stable. The patient is seen today March 15, 2024 in follow-up on the selective care unit. He is currently sitting up in bed. Awake and alert in no acute distress. He is maintaining good O2 saturations in the 90s on 3 L/min per nasal cannula. No IV fluids. He is feeling better today compared to yesterday. Still somewhat bronchospastic and wheezing. He is continued on DuoNeb inhalations, Pulmicort and Perforomist inhalations, IV Solu-Medrol. He is on antibiotics in the form of ceftriaxone. Currently on a Cardizem drip at 10 mg/h. He did develop atrial fibrillation with a rapid ventricular response today. Urine culture positive for gram-negative bacilli. Blood culture revealing no growth. Sputum culture revealing no growth. White count 16.7. Hemoglobin 11.7. Platelets 212. Sodium 134. Potassium 5.0. Bicarb 20. BUN 94. Creatinine 4.88. Glucose 300. Procalcitonin 0.26. The patient is seen today March 16, 2024 in follow-up on the selective care unit. He is currently resting in bed. Awake and alert in no acute distress. He is maintaining O2 saturations in the 90s on room air. He is continued on a heparin drip. Continue on amiodarone drip at 0.5 mg/min. He is continued on DuoNeb inhalations, Pulmicort and Perforomist inhalations, Solu-Medrol at 40 mg every 8 hours. The patient is still somewhat bronchospastic and wheezing. He remains in atrial fibrillation with a better controlled ventricular response. He is on antibiotics in the form of ceftriaxone. Urine culture was positive for Klebsiella pneumoniae. Sputum culture revealed no growth. Blood cultures revealed no growth. White count 15.5. Hemoglobin 11.5. Platelets 212. Sodium 131. Potassium 4.9. Bicarb 17. BUN 113. Creatinine 4.79. Glucose 303. He has been initiated on sodium bicarb tablets. Current urine output 450 mL. The patient is seen today March 17, 2024 in follow-up on the selective care unit. He is currently resting comfortably in bed. Awake and alert in no acute distress. Maintaining good O2 saturations in the 90s on 2 L/min per nasal cannula. He remains on a heparin drip. He remains on DuoNeb inhalations, Pulmicort and Perforomist inhalations, Solu-Medrol. Antibiotics in the form of ceftriaxone. White count 15.2. Hemoglobin 12.1. Platelets 200,000. Sodium 136. Potassium 4.5. Bicarb 19. BUN 119. Creatinine 5.47. Glucose 176. Urine culture was positive for Klebsiella pneumoniae. Blood cultures revealed no growth. Sputum culture revealed no growth. Nephrology is following for possible renal replacement therapy. Chest x-ray reveals mild cardiomegaly and mild pulmonary vascular congestion. On 03/18/2024, the patient is being seen for a follow-up. The patient is known to have COPD, obstructive sleep apnea, coronary disease, hypertension hyperlipidemia chronic kidney disease. The patient also suffers from BPH and he has undergone previous TURP. The patient is not currently undergoing hemodialysis. He is on room air oxygen. Main complaint is some limited residual cough. Patient also being treated for an underlying urine tract infection with Klebsiella and the patient is currently on IV Rocephin. No other specific complaints. White cell count of 16.6 with a hemoglobin 12.8 and a platelet count of 215. The BUN levels at 137 with a potassium level of 5.1 and a sodium level is at 137 and a potassium level is at 4.1. Free T4 is at 0.9 with a TSH of 0.38. The patient remains on DuoNeb updrafts. The patient is on Levemir insulin. The patient is on oral bicarb. The urine output remains active and the patient is producing adequate amount of urine output and remains in negative fluid balance. Nephrology is on the case for now. Remains on b ronchodilators. Remains on steroids. The chest x-ray that was done on 03/17/2024 showed mild cardiomegaly and pulm vessel congestion and some atelectatic change in lung base bilaterally. 03/19/2024, I am seeing the patient for a follow-up. Patient is resting comfortably in bed. The patient is currently on room air oxygen. Denies having any significant shortness of breath at rest. No chest pain. No angina or palpitations. The patient underwent hemodialysis yesterday. His current oxygenation stable on room air oxygen. Meanwhile, the patient was noted to have some increased tachycardia with atrial fibrillation. Cardiology on the case. The patient is currently on metoprolol and the dose was increased up to 50 mg twice a day. Will monitor his blood pressure response. Continue bronch odilators. Continue steroids. Continue Levemir insulin 40 units every 12 hours and sliding scale coverage. Continue IV Rocephin. The patient's white cell count is at 15.7 with a hemoglobin of 13.1 and a platelet count of 186. BUN is 117 with a creatinine of 3.84 and sodium levels at 135. Patient is being seen by cardiology and nephrology. The patient has mentioned sustaining acute kidney injury on top of chronic kidney disease. Started on hemodialysis on 03/18/2024. Hemodynamically stable. Reynolds catheter is in place. A second treatment with dialysis to be done today and the third tomorrow. His chest x-ray from today shows cardiomegaly and mild interstitial prominence nasal congestion heart failure. On 03/20/2024, the patient is being seen for a follow-up. The patient is stable on room air oxygen. He is undergoing hemodialysis today. Remains on bronchodilators. Remains on Solu-Medrol and the patient has been weaned down to 40 mg IV every 12 hours. Limited cough and congestion. Remains on DuoNeb AND remains on Perforomist and Pulmicort nebulized treatment twice a day. No chest pain. Volume status is improving. The BUN is at 105 with a creatinine of 3.46 and a sodium level is 138 and a potassium level is at 3.9. Hematologic profile from 03/19/2024 showed a white cell count of 15.7 and hemoglobin of 15.1. The patient's urine culture is positive for Klebsiella pneumonia and this urine culture was collected on 03/13/2024. On 03/21/2024, the patient is undergoing hemodialysis. Resting comfortably in bed on room air oxygen. No specific complaints. No significant events overnight. The patient has an underlying A-fib/flutter. He is currently on metoprolol 50 mg p.o. twice daily and amiodarone 4 mg p.o. twice a day. No angina. No palpitation. No altered mentation. Labs from today shows a white cell count of 13 with a hemoglobin of 15 and a platelet count of 159. BUN is 85 with a creatinine of 2.75 and a sodium level is 134. Remains on DuoNeb updrafts 4 times a day in addition to performance of Pulmicort nebulized treatments twice a day. Solu-Medrol was weaned down to 40 mg every 12 hours. Rest of the medications remain unchanged. On 03/22/2024, the patient is being seen for a follow-up. Calm and comfortable. No specific complaints. No plans for hemodialysis today. The patient denies having significant shortness of breath. No chest pain. He remains on room air oxygen. BUN 74 with a creatinine of 2.8. Potassium is at 3.4. Remains on DuoNeb treatments on the clock. Remains on IV Solu-Medrol and the patient is going to be started on prednisone burst taper. Remains on Levemir insulin 40 units twice a day. Remains on anticoagulation with Eliquis 2.5 mg p.o. twice a day. On 03/23/2024, the patient is being seen for a follow-up. Resting comfortably in bed. No specific complaints. No dialysis for today. Clinically stable. Hemodynamically stable. Labs from today are pending. No significant events overnight. Patient remains on same medication. The patient was taken off IV Solu-Medrol and the patient currently on a prednisone burst taper starting with 40 mg p.o. daily. 03/24/2024, patient is being seen for a follow-up. Resting comfortably in bed. Urine output is improved and the patient continues to produce excellent amount of urine output. Renal function also is improving. The patient has not had any dialysis over the weekend. Respiratory status is stable. No respiratory difficulties., Comfortable on room air oxygen and resting comfortably in bed. He was admitted 13 with a total of 4.8 and a platelet count of 148. BUN 16 with a creatinine of 2.56 and a sodium levels of 137. Completing a prednisone burst taper. He is currently on [facility]. 03/25/2024, patient was seen on follow-up, seems to be very comfortable, he is not in distress, his renal functioning is improved, creatinine is 3.53 today, he was started initially on dialysis back on 03/18/2024, patient is scheduled for extra hemodialysis treatment today. His shortness of breath seems to be better but not completely resolved. Patient does have cardiomyopathy and LV dysfunction with ejection fraction of 35 to 40%. Chest x-ray yesterday showed minimal interstitial edema, improved compared to baseline. WBC count is 12.8 hemoglobin 12.6 electrolytes are normal BUN is 89 creatinine 3.53 Objective - Vital Signs Vital signs: Vital Signs Temp 97.6 F 03/25/24 09:05 Pulse 68 03/25/24 11:42 Resp 18 03/25/24 11:25 BP 124/66 03/25/24 11:25 Pulse Ox 100 03/25/24 11:25 FiO2 Intake & Output 03/24/24 03/25/24 03/25/24 18:59 06:59 18:59 Intake Total 600 354 Output Total 350 1300 Balance 250 -1300 354 Weight 122.6 kg Intake: Oral 600 354 Output: Urine 350 1300 Other: Voiding Method Indwelling Catheter Indwelling Catheter Indwelling Catheter - Exam GENERAL EXAM: Revealed a an 78-year-old white male in no distress, On 2 L nasal cannula HEAD: Normocephalic and atraumatic EYES: Normal reaction of pupils, equal size. NOSE: Clear with pink turbinates. THROAT: No erythema or exudates. NECK: No masses, no JVD. CHEST: No chest wall deformity. LUNGS: Minimal wheezing on forced expiratory maneuver CVS: S1 and S2 normal with no audible murmur, regular rhythm. No extra heart sounds ABDOMEN: No hepatosplenomegaly, active bowel sounds, no guarding or rigidity. SKIN: No rashes CENTRAL NERVOUS SYSTEM: Alert and oriented x 3 no gross focal deficit EXTREMITIES: No clubbing edema or cyanosis - Labs CBC & Chem 7: 03/25/24 07:44 03/25/24 07:44 Labs: Abnormal Lab Results - Last 24 Hours (Table) 03/24/24 03/24/24 03/24/24 Range/Units 14:44 16:15 19:54 WBC (3.8-10.6) k/uL Hgb (13.0-17.5) gm/dL MCHC (31.0-37.0) g/dL Plt Count (150-450) k/uL Neutrophils # (1.3-7.7) k/uL Carbon Dioxide (22-30) mmol/L BUN (9-20) mg/dL Creatinine (0.66-1.25) mg/dL POC Glucose (mg/dL) 185 H 210 H 222 H (70-110) mg/dL Calcium (8.4-10.2) mg/dL 03/25/24 03/25/24 03/25/24 Range/Units 02:16 06:29 07:44 WBC 12.8 H (3.8-10.6) k/uL Hgb 12.6 L (13.0-17.5) gm/dL MCHC 30.7 L (31.0-37.0) g/dL Plt Count 148 L (150-450) k/uL Neutrophils # 10.7 H (1.3-7.7) k/uL Carbon Dioxide (22-30) mmol/L BUN (9-20) mg/dL Creatinine (0.66-1.25) mg/dL POC Glucose (mg/dL) 186 H 130 H (70-110) mg/dL Calcium (8.4-10.2) mg/dL 03/25/24 03/25/24 Range/Units 07:44 11:21 WBC (3.8-10.6) k/uL Hgb (13.0-17.5) gm/dL MCHC (31.0-37.0) g/dL Plt Count (150-450) k/uL Neutrophils # (1.3-7.7) k/uL Carbon Dioxide 31 H (22-30) mmol/L BUN 89 H (9-20) mg/dL Creatinine 3.53 H (0.66-1.25) mg/dL POC Glucose (mg/dL) 262 H (70-110) mg/dL Calcium 8.0 L (8.4-10.2) mg/dL Assessment and Plan Assessment: Impression: Acute hypoxic respiratory failure, multifactorial Acute COPD exacerbation Acute systolic congestive heart failure in the setting of chronic kidney failure and requiring hemodialysis Chronic atrial fibrillation Urinary tract infection secondary to Klebsiella pneumoniae, treated with ceftriaxone Chronic kidney disease stage IV History of BPH and previous TURP Benign essential hypertension Dyslipidemia Type 2 diabetes Coronary artery disease and previous stent placement Moderate severe COPD Obstructive sleep apnea syndrome Obesity with BMI of 38.9 Recommendation: Continue present supportive care measures Continue bronchodilators including DuoNeb, Pulmicort, and Perforomist. Continue prednisone burst and taper Continue hemodialysis and diuretics Ambulate and increase activity as tolerated Will continue to follow Time with Patient: Less than 30
[2024-03-25] MEDS ORDERED: MIDODRINE 5 MG TAB PO PRN (15:44)
[2024-03-25 16:16] LABS: Glucose,Whole Blood 133 mg/dL (70-110)
[2024-03-25 20:05] LABS: Glucose,Whole Blood 281 mg/dL (70-110)
--- NOTE | 2024-03-25 21:00 | P.PN ---
Subjective Progress Note Date: 03/25/24 Patient is evaluated today on the stepdown unit. Reporting worsening shortness of breath than yesterday. Reporting difficulty with expectoration and feels he has mucus stuck in his upper chest/throat. He has some audible wheezing noted. Nephrology recommending an additional dose of hemodialysis tomorrow. Plan is for //Monday as an outpatient. Most recent chest xray showing vascular congestion. Creatinine 3.53. Review of Systems Constitutional: Denied any fatigue denied any fever. Cardio vascular: denied any chest pain, palpitations Gastrointestinal: denied any nausea, vomiting, diarrhea Pulmonary: Reports shortness of breath, congestion Neurologic denied any new focal deficits All inpatient medications were reviewed and appropriate changes in these medications as dictated in the interval history and assessment and plan. PHYSICAL EXAMINATION: GENERAL: The patient is alert and oriented x3, not in any acute distress. Well developed, well nourished. HEENT: Pupils are round and equally reacting to light. EOMI. No scleral icterus. No conjunctival pallor. Normocephalic, atraumatic. No pharyngeal erythema. No thyromegaly. CARDIOVASCULAR: S1 and S2 present. No murmurs, rubs, or gallops. PULMONARY: Faint scattered audible wheezing. ABDOMEN: Soft, nontender, nondistended, normoactive bowel sounds. No palpable organomegaly. MUSCULOSKELETAL: No joint swelling or deformity. EXTREMITIES: No cyanosis, clubbing, or pedal edema. NEUROLOGICAL: Gross neurological examination did not reveal any focal deficits. SKIN: No rashes. Assessment and Plan Assessment Acute hypoxemic respiratory failure; likely secondary to acute COPD exacerbation and a systolic CHF exacerbation. Atrial fibrillation with a rapid ventricular response Acute exacerbation of chronic systolic congestive heart failure. Ejection fraction 35 to 40%. Global hypokinesis Acute on chronic kidney disease stage IV, possibly postobstructive secondary to retention. Newly started on hemodialysis this admission. Urinary retention requiring indwelling correa catheter Urinary tract infection secondary to Klebsiella pneumoniae; completed the course of antibiotics. Hx hyperlipidemia Hypertension Diabetes Mellitus type 2 Hx of coronary artery disease with prior PCI GI prophylaxis DVT prophylaxis on eliquis Plan Continue eliquis, continue decreased dose of amiodarone, heart rate is now controlled Add mucinex Patient to start oral diuretics in the AM. Continue metoprolol, midodrine PRN Continue accuchecks ACHS, sliding scale and long acting insulin Social work on for [place] planning outpatient hemodialysis shaista ivy sat Patient to undergo hemodialysis today and again tomorrow. The impression and plan of care has been dictated by Mirna Sen, Nurse Practitioner as directed. Dr. Dena MD I have performed a history and physical examination and medical decision making of this patient, discussed the same with the dictator, and agree with the dictators assessment and plan as written, documented as a scribe. Based on total visit time, I have performed more than 50% of this visit. Objective - Vital Signs Vital signs: Vital Signs Temp 97.6 F 03/25/24 09:05 Pulse 73 03/25/24 09:05 Resp 16 03/25/24 09:05 BP 93/63 03/25/24 09:05 Pulse Ox 100 03/25/24 09:05 FiO2 Intake & Output 03/24/24 03/25/24 03/25/24 18:59 06:59 18:59 Intake Total 600 118 Output Total 350 1300 Balance 250 -1300 118 Weight 122.6 kg Intake: Oral 600 118 Output: Urine 350 1300 Other: Voiding Method Indwelling Catheter Indwelling Catheter Indwelling Catheter - Labs CBC & Chem 7: 03/25/24 07:44 03/25/24 07:44 Labs: Abnormal Lab Results - Last 24 Hours (Table) 03/24/24 03/24/24 03/24/24 Range/Units 11:21 14:44 16:15 WBC (3.8-10.6) k/uL Hgb (13.0-17.5) gm/dL MCHC (31.0-37.0) g/dL Plt Count (150-450) k/uL Neutrophils # (1.3-7.7) k/uL Carbon Dioxide (22-30) mmol/L BUN (9-20) mg/dL Creatinine (0.66-1.25) mg/dL POC Glucose (mg/dL) 150 H 185 H 210 H (70-110) mg/dL Calcium (8.4-10.2) mg/dL 03/24/24 03/25/24 03/25/24 Range/Units 19:54 02:16 06:29 WBC (3.8-10.6) k/uL Hgb (13.0-17.5) gm/dL MCHC (31.0-37.0) g/dL Plt Count (150-450) k/uL Neutrophils # (1.3-7.7) k/uL Carbon Dioxide (22-30) mmol/L BUN (9-20) mg/dL Creatinine (0.66-1.25) mg/dL POC Glucose (mg/dL) 222 H 186 H 130 H (70-110) mg/dL Calcium (8.4-10.2) mg/dL 03/25/24 03/25/24 Range/Units 07:44 07:44 WBC 12.8 H (3.8-10.6) k/uL Hgb 12.6 L (13.0-17.5) gm/dL MCHC 30.7 L (31.0-37.0) g/dL Plt Count 148 L (150-450) k/uL Neutrophils # 10.7 H (1.3-7.7) k/uL Carbon Dioxide 31 H (22-30) mmol/L BUN 89 H (9-20) mg/dL Creatinine 3.53 H (0.66-1.25) mg/dL POC Glucose (mg/dL) (70-110) mg/dL Calcium 8.0 L (8.4-10.2) mg/dL Assessment and Plan Time with Patient: Less than 30
[2024-03-25] MEDS: guaiFENesin 600 MG TABLET.ER PO SCH (21:34)
[2024-03-26 02:12] LABS: Glucose,Whole Blood 247 mg/dL (70-110)
[2024-03-26 06:51] LABS: Glucose,Whole Blood 174 mg/dL (70-110)
[2024-03-26] MEDS: TORSEMIDE 20 MG TAB PO SCH (09:11)
[2024-03-26 11:28] LABS: Glucose,Whole Blood 141 mg/dL (70-110)
[2024-03-26 11:34] VITALS: RESP 18
--- NOTE | 2024-03-26 13:28 | P.PN ---
Subjective HISTORY OF PRESENT ILLNESS: This is a pleasant 71-year-old with past medical history significant for COPD, CAD with prior stenting, diabetes mellitus type 2, hypertension, hyperlipidemia, chronic kidney disease. He follows in the office with Dr Ramos. He states that he has been having increased shortness of breath over last week and a half. He also has been having some upper abdominal achiness. Denies any specific chest pain or pressure. He has not really had an appetite over last few weeks. He does have chronic kidney disease with creatinine more than the 2.8 range however creatinine increased up before this admission. Denies any recent Motrin. No significant lightheadedness or dizziness. No recent changes to his medications. Chest x-ray performed which shows pulmonary vascular congestion. Patient also has diffuse wheezes on exam. EKG showing sinus rhythm with frequent PACs. Troponin 0.05, 0.05. Lactic acid 2.2. ProBNP 4860 03/15 Patient seen and examined. Patient went into atrial flutter with RVR with initial heart rates in the 140s and initially looked like SVT and therefore adenosine was given with no improvement. Patient was started on Cardizem drip with underlying atrial flutter waves. He does not have any history of atrial flutter. We discussed anticoagulation for stroke prevention patient is agree able. We will place patient on Lovenox in case he needs possible dialysis catheter placement. Denies any chest pain or pressure. He has been somewhat symptomatic with the atrial flutter with more shortness of breath. 03/16 Patient seen and examined. Patient states that his breathing is okay. No chest pain and no chest pressure. He does complain of cough. No palpitations. Plan is to start patient on hemodialysis on Monday. He is on a heparin drip which will be continued until after that. Blood pressure 117/56, heart rate 89, pulse ox 97% on room air. Repeat blood work reveals WBC 15.5, hemoglobin 11.5. Sodium 131, potassium 4.9, BUN 113, creatinine 4.79. Reviewed records from the office. Patient has not had an echocardiogram since 2016 which revealed EF of 50%. Patient has not been in the office since July 2018. Patient is also been maintained on IV amiodarone. He is off Cardizem drip. 03/17 Patient seen and examined. Blood pressure 128/63, heart rate 81, pulse ox 95% on 2 L nasal cannula. Patient remains in afib, controlled heart rate in the 80s- 90s. Repeat blood work reveals WBC 15.2, hemoglobin 12.1. Renal function has worsened and consult added for Dr. Marshall for dialysis catheter insertion. Yesterday, amiodarone was switched from IV to oral 400 mg twice daily. Patient is maintained on heparin drip until after catheter placement completed. Patient states he feels well today, no shortness of breath. 03/18 Patient is going from the room for insertion of dialysis catheter with plan to start hemodialysis today. Blood pressure 144/59, heart rate 84, pulse ox 98% on room air. Patient is maintained on heparin drip. 03/19 Patient had insertion of dialysis catheter done yesterday and started hemodialysis. His heart rate started running in the 120s during dialysis yesterday and he did have a drop in his blood pressure. This morning his heart rate started running in the 120s during dialysis yesterday and he did have a drop in his blood pressure with dialysis. This morning he is running in the 120s, atrial fibrillation, blood pressure 101/74, pulse ox 99% on 2 L. Yesterday, Lopressor was increased to 25 mg twice daily. 03/20 Patient continues to be in atrial fibrillation with heart rates better controlled in the low 100s. Repeat chest x-ray reveals moderate cardiomegaly with improving interstitium. Patient is scheduled for his third hemodialysis treatment today. He denies any new concerns today. No chest pain. No palpitations. Yesterday Toprol-XL was increased to 50 mg twice daily and he was continued on amiodarone 400 mg twice daily. Yesterday heparin drip was discontinued and started Eliquis. 03/21 Patient is undergoing hemodialysis now. Blood pressure 105/65. Heart rate is running in the low 100s and seems to be controlled, telemetry is atrial flutter at 94. Patient has been on amiodarone 400 mg twice daily and Lopressor 50 mg twice daily. He denies having any chest pain or palpitations. Repeat blood work reveals WBC 13.5, hemoglobin 13.6. BUN 85 and creatinine 2.75, potassium 4.1. 03/22 Patient is seen today in follow-up. Last evening, patient went into A-fib with RVR at 140 bpm and started on Cardizem drip. His heart rate is now controlled in the 60s and 70s. Blood pressure 112/59, pulse ox 100% on room air. Patient denies chest pain or palpitations. Repeat blood work reveals sodium 133, potassium 3.4, BUN 74 creatinine 2.86.. 03/23/2024 Patient is seen in follow-up today. He continues to be in atrial fibrillation but his heart rates are better controlled. Hemodynamically stable. Plan for hemodialysis today. March 24, 2024 Telemetry shows atrial fibrillation but rate controlled, heart rate around 71 bpm. Patient's heart rate has been controlled over last 12 hours. He received hemodialysis session yesterday tolerated well. BP 98/55 today, labs shows WBC 13, HbA1c 12.8, platelets 148, BUN 67, creatinine 2.5 March 25, 2024 Patient examined this morning at the bedside. Patient currently denies chest pain or pressure. He denies shortness of breath. However, patient was short of breath yesterday and required an extra dose of IV Lasix. Patient is scheduled to undergo an extra hemodialysis treatment today. 03/26/2024 Patient examined this morning the bedside. Patient currently denies chest pain or pressure. He denies shortness of breath. He is currently undergoing hemodialysis. Vital signs are stable. PHYSICAL EXAM: VITAL SIGNS: Reviewed. GENERAL: Well-developed in no acute distress. NECK: Supple. No JVD or thyromegaly LUNGS: Respirations even and unlabored. Lungs essentially clear to auscultation bilaterally. HEART: Regular rate and rhythm. S1 and S2 heard. EXTREMITIES: Normal range of motion. No clubbing or cyanosis. Peripheral pulses intact. No lower extremity edema ASSESSMENT: Acute on chronic respiratory failure related to component of possible COPD exacerbation with audible wheezing plus component of heart failure/kidney failure Acute on chronic systolic heart failure Acute kidney injury and chronic kidney disease stage IV, patient started on dialysis 03/18 Elevated troponins, related to chronic kidney disease, not indicative of ischemia or injury, not clinically significant New onset paroxysmal atrial flutter typical/atrial fibrillation with RVR, p atient continues to have intermittent episodes of RVR New onset cardiomyopathy with EF of 35 to 40%, ischemic versus nonischemic, may be tachycardia induced CAD with prior history of stenting Hypertension Hyperlipidemia Diabetes mellitus type 2 History of COPD PLAN: Continue current cardiac medications Continue anticoagulation with Eliquis He is currently stable from a cardiac standpoint Consider outpatient ischemic workup due to new cardiomyopathy We will sign off. Please reconsult if needed. Nurse practitioner note has been reviewed by physician. Signing provider agrees with the documented findings, assessment, and plan of care documented by VACCINE SPECIALIST as a scribe. Objective - Vital Signs Vital signs: Vital Signs Temp 97.5 F L 03/26/24 09:10 Pulse 64 03/26/24 11:58 Resp 18 03/26/24 11:33 BP 122/55 03/26/24 11:33 Pulse Ox 97 03/26/24 11:33 FiO2 Intake & Output 03/25/24 03/26/24 03/26/24 18:59 06:59 18:59 Intake Total 1234 240 480 Output Total 3000 100 Balance -1766 140 480 Weight 65.3 kg Intake: Oral 834 240 480 Hemodialysis 400 Output: Urine 600 100 Hemodialysis 2400 Other: Voiding Method Indwelling Catheter Indwelling Catheter Indwelling Catheter - Labs CBC & Chem 7: 03/25/24 07:44 03/25/24 07:44 Labs: Abnormal Lab Results - Last 24 Hours (Table) 03/25/24 03/25/24 03/26/24 Range/Units 16:15 20:04 02:11 POC Glucose (mg/dL) 133 H 281 H 247 H (70-110) mg/dL 03/26/24 03/26/24 Range/Units 06:50 11:27 POC Glucose (mg/dL) 174 H 141 H (70-110) mg/dL
--- NOTE | 2024-03-26 13:33 | P.PN ---
Subjective Patient is seen for follow-up for acute kidney injury and chronic kidney disease stage IV with baseline creatinine 2.6 to 2.8 mg/dL. Now on hemodialysis Started hemodialysis this admission on 03/18/2024. patient is seen on hemodialysis. Tolerating treatment well. UF of about 2.4 L yesterday and about the same for today [place] at [facility] catheter was advised to be discontinued however patient refused. Objective - Vital Signs Vital signs: Vital Signs Temp 97.5 F L 03/26/24 09:10 Pulse 64 03/26/24 11:58 Resp 18 03/26/24 11:33 BP 122/55 03/26/24 11:33 Pulse Ox 97 03/26/24 11:33 FiO2 Intake & Output 03/25/24 03/26/24 03/26/24 18:59 06:59 18:59 Intake Total 1234 240 480 Output Total 3000 100 Balance -1766 140 480 Weight 65.3 kg Intake: Oral 834 240 480 Hemodialysis 400 Output: Urine 600 100 Hemodialysis 2400 Other: Voiding Method Indwelling Catheter Indwelling Catheter Indwelling Catheter - Exam Patient is awake, comfortable, no acute distress. Examination of lower extremity shows no significant edema, chronic skin changes. FRONT END ALIGNMENT SPECIALIST exam grossly intact - Labs CBC & Chem 7: 03/25/24 07:44 03/25/24 07:44 Labs: Abnormal Lab Results - Last 24 Hours (Table) 03/25/24 03/25/24 03/26/24 Range/Units 16:15 20:04 02:11 POC Glucose (mg/dL) 133 H 281 H 247 H (70-110) mg/dL 03/26/24 03/26/24 Range/Units 06:50 11:27 POC Glucose (mg/dL) 174 H 141 H (70-110) mg/dL Assessment and Plan Assessment: 1. Acute kidney injury secondary to ATN secondary to cardiorenal syndrome and hemodynamic instability. Creatinine 5.11 dated March 18, 2024. Elevated BUN due to acute kidney injury as well as steroids. Nonoliguric. No hydronephrosis noted on kidney ultrasound. Right kidney atrophic. Started on hemodialysis March 18, 2024. Has permacath. 2. Chronic kidney disease stage IV secondary to diabetic kidney disease and nephrosclerosis with baseline creatinine 2.5-2.8. 3. Acute on chronic systolic CHF with ejection fraction of 35 to 40%. 4. Klebsiella UTI on antibiotics. 5. Urinary retention. Has Reynolds catheter. On Flomax. Urology following. 6. Volume overload. 7. Chronic kidney disease mineral bone disease maintained on calcitriol. 8. A-fib with RVR maintained on oral amiodarone and metoprolol. 9. Metabolic acidosis secondary to acute kidney injury. On oral bicarb. Stable. 10. Hyperphosphatemia secondary to acute kidney injury. On PhosLo. Phosphorus level 5.9 dated March 17, 2024. Plan: continue hemodialysis on Monday schedule. Recommend discontinuation of Reynolds catheter and voiding trial. If patient continues to refuse he should follow-up with urology post discharge.
[2024-03-26 13:50] VITALS: BP 111/54; TEMP 97.4
--- NOTE | 2024-03-26 15:06 | P.PN ---
Subjective Progress Note Date: 03/26/24 Principal diagnosis: Acute hypoxic respiratory failure secondary to acute exacerbation of COPD and systolic congestive heart failure Patient is an 78-year-old white male with past medical history significant for COPD, obstructive sleep apnea, coronary artery disease, hypertension, hyperlipidemia, chronic kidney disease, BPH and previous TURP. His primary care provider is Dr. Isbell. Did follow with Dr. Delacruz in the pulmonary office in the past, but has not been back in some time. He is known to have moderate COPD. Patient presented to emergency room yesterday complaining of about 4 weeks of worsening shortness of breath. Accompanied by chest tightness, wheezin g, cough with green phlegm. Chest x-ray on arrival showed low lung volumes and general hazy appearance, atelectasis versus pulmonary edema. Also, noted to be more confused at home. ABG was drawn in the emergency department, with a PaO2 of 93, pCO2 of 37, pH of 7.36. He is also has had issues with frequent urination and incomplete voiding. He has history of urinary retention and underwent previous TURP in the past. Denies any burning or dysuria. Denies suprapubic pain. Denies fevers. Urinalysis positive for leukocyte esterase and bacteria. CBC: WBC count 12.1, hemoglobin 12.8, hematocrit 40.5, platelets 274. CMP: Sodium 143, potassium 4.2, chloride 110, serum bicarb 20, BUN 87, crea tinine 4.44, glucose 72. Does have an indwelling urinary catheter. lactic 2. LFTs not elevated. Troponin 0.047. NT proBNP 4860. Negative for influenza, RSV, COVID. He is currently sitting up at the edge of the bed, reportedly just got up to use the bathroom. Seems to be oriented. He is on 2 L/min nasal cannula. SpO2 is 98%. He has audible wheezing. Vital signs are stable. The patient is seen today March 15, 2024 in follow-up on the selective care unit. He is currently sitting up in bed. Awake and alert in no acute distress. He is maintaining good O2 saturations in the 90s on 3 L/min per nasal cannula. No IV fluids. He is feeling better today compared to yesterday. Still somewhat bronchospastic and wheezing. He is continued on DuoNeb inhalations, Pulmicort and Perforomist inhalations, IV Solu-Medrol. He is on antibiotics in the form of ceftriaxone. Currently on a Cardizem drip at 10 mg/h. He did develop atrial fibrillation with a rapid ventricular response today. Urine culture positive for gram-negative bacilli. Blood culture revealing no growth. Sputum culture revealing no growth. White count 16.7. Hemoglobin 11.7. Platelets 212. Sodium 134. Potassium 5.0. Bicarb 20. BUN 94. Creatinine 4.88. Glucose 300. Procalcitonin 0.26. The patient is seen today March 16, 2024 in follow-up on the selective care unit. He is currently resting in bed. Awake and alert in no acute distress. He is maintaining O2 saturations in the 90s on room air. He is continued on a heparin drip. Continue on amiodarone drip at 0.5 mg/min. He is continued on DuoNeb inhalations, Pulmicort and Perforomist inhalations, Solu-Medrol at 40 mg every 8 hours. The patient is still somewhat bronchospastic and wheezing. He remains in atrial fibrillation with a better controlled ventricular response. He is on antibiotics in the form of ceftriaxone. Urine culture was positive for Klebsiella pneumoniae. Sputum culture revealed no growth. Blood cultures revealed no growth. White count 15.5. Hemoglobin 11.5. Platelets 212. Sodium 131. Potassium 4.9. Bicarb 17. BUN 113. Creatinine 4.79. Glucose 303. He has been initiated on sodium bicarb tablets. Current urine output 450 mL. The patient is seen today March 17, 2024 in follow-up on the selective care unit. He is currently resting comfortably in bed. Awake and alert in no acute distress. Maintaining good O2 saturations in the 90s on 2 L/min per nasal cannula. He remains on a heparin drip. He remains on DuoNeb inhalations, Pulmicort and Perforomist inhalations, Solu-Medrol. Antibiotics in the form of ceftriaxone. White count 15.2. Hemoglobin 12.1. Platelets 200,000. Sodium 136. Potassium 4.5. Bicarb 19. BUN 119. Creatinine 5.47. Glucose 176. Urine culture was positive for Klebsiella pneumoniae. Blood cultures revealed no growth. Sputum culture revealed no growth. Nephrology is following for possible renal replacement therapy. Chest x-ray reveals mild cardiomegaly and mild pulmonary vascular congestion. On 03/18/2024, the patient is being seen for a follow-up. The patient is known to have COPD, obstructive sleep apnea, coronary disease, hypertension hyperlipidemia chronic kidney disease. The patient also suffers from BPH and he has undergone previous TURP. The patient is not currently undergoing hemodialysis. He is on room air oxygen. Main complaint is some limited residual cough. Patient also being treated for an underlying urine tract infection with Klebsiella and the patient is currently on IV Rocephin. No other specific complaints. White cell count of 16.6 with a hemoglobin 12.8 and a platelet count of 215. The BUN levels at 137 with a potassium level of 5.1 and a sodium level is at 137 and a potassium level is at 4.1. Free T4 is at 0.9 with a TSH of 0.38. The patient remains on DuoNeb updrafts. The patient is on Levemir insulin. The patient is on oral bicarb. The urine output remains active and the patient is producing adequate amount of urine output and remains in negative fluid balance. Nephrology is on the case for now. Remains on b ronchodilators. Remains on steroids. The chest x-ray that was done on 03/17/2024 showed mild cardiomegaly and pulm vessel congestion and some atelectatic change in lung base bilaterally. 03/19/2024, I am seeing the patient for a follow-up. Patient is resting comfortably in bed. The patient is currently on room air oxygen. Denies having any significant shortness of breath at rest. No chest pain. No angina or palpitations. The patient underwent hemodialysis yesterday. His current oxygenation stable on room air oxygen. Meanwhile, the patient was noted to have some increased tachycardia with atrial fibrillation. Cardiology on the case. The patient is currently on metoprolol and the dose was increased up to 50 mg twice a day. Will monitor his blood pressure response. Continue bronch odilators. Continue steroids. Continue Levemir insulin 40 units every 12 hours and sliding scale coverage. Continue IV Rocephin. The patient's white cell count is at 15.7 with a hemoglobin of 13.1 and a platelet count of 186. BUN is 117 with a creatinine of 3.84 and sodium levels at 135. Patient is being seen by cardiology and nephrology. The patient has mentioned sustaining acute kidney injury on top of chronic kidney disease. Started on hemodialysis on 03/18/2024. Hemodynamically stable. Reynolds catheter is in place. A second treatment with dialysis to be done today and the third tomorrow. His chest x-ray from today shows cardiomegaly and mild interstitial prominence nasal congestion heart failure. On 03/20/2024, the patient is being seen for a follow-up. The patient is stable on room air oxygen. He is undergoing hemodialysis today. Remains on bronchodilators. Remains on Solu-Medrol and the patient has been weaned down to 40 mg IV every 12 hours. Limited cough and congestion. Remains on DuoNeb AND remains on Perforomist and Pulmicort nebulized treatment twice a day. No chest pain. Volume status is improving. The BUN is at 105 with a creatinine of 3.46 and a sodium level is 138 and a potassium level is at 3.9. Hematologic profile from 03/19/2024 showed a white cell count of 15.7 and hemoglobin of 15.1. The patient's urine culture is positive for Klebsiella pneumonia and this urine culture was collected on 03/13/2024. On 03/21/2024, the patient is undergoing hemodialysis. Resting comfortably in bed on room air oxygen. No specific complaints. No significant events overnight. The patient has an underlying A-fib/flutter. He is currently on metoprolol 50 mg p.o. twice daily and amiodarone 4 mg p.o. twice a day. No angina. No palpitation. No altered mentation. Labs from today shows a white cell count of 13 with a hemoglobin of 15 and a platelet count of 159. BUN is 85 with a creatinine of 2.75 and a sodium level is 134. Remains on DuoNeb updrafts 4 times a day in addition to performance of Pulmicort nebulized treatments twice a day. Solu-Medrol was weaned down to 40 mg every 12 hours. Rest of the medications remain unchanged. On 03/22/2024, the patient is being seen for a follow-up. Calm and comfortable. No specific complaints. No plans for hemodialysis today. The patient denies having significant shortness of breath. No chest pain. He remains on room air oxygen. BUN 74 with a creatinine of 2.8. Potassium is at 3.4. Remains on DuoNeb treatments on the clock. Remains on IV Solu-Medrol and the patient is going to be started on prednisone burst taper. Remains on Levemir insulin 40 units twice a day. Remains on anticoagulation with Eliquis 2.5 mg p.o. twice a day. On 03/23/2024, the patient is being seen for a follow-up. Resting comfortably in bed. No specific complaints. No dialysis for today. Clinically stable. Hemodynamically stable. Labs from today are pending. No significant events overnight. Patient remains on same medication. The patient was taken off IV Solu-Medrol and the patient currently on a prednisone burst taper starting with 40 mg p.o. daily. 03/24/2024, patient is being seen for a follow-up. Resting comfortably in bed. Urine output is improved and the patient continues to produce excellent amount of urine output. Renal function also is improving. The patient has not had any dialysis over the weekend. Respiratory status is stable. No respiratory difficulties., Comfortable on room air oxygen and resting comfortably in bed. He was admitted 13 with a total of 4.8 and a platelet count of 148. BUN 16 with a creatinine of 2.56 and a sodium levels of 137. Completing a prednisone burst taper. He is currently on [facility]. 03/25/2024, patient was seen on follow-up, seems to be very comfortable, he is not in distress, his renal functioning is improved, creatinine is 3.53 today, he was started initially on dialysis back on 03/18/2024, patient is scheduled for extra hemodialysis treatment today. His shortness of breath seems to be better but not completely resolved. Patient does have cardiomyopathy and LV dysfunction with ejection fraction of 35 to 40%. Chest x-ray yesterday showed minimal interstitial edema, improved compared to baseline. WBC count is 12.8 hemoglobin 12.6 electrolytes are normal BUN is 89 creatinine 3.53 Patient was seen and evaluated today on 03/26/2024, patient is undergoing hemodialysis. Patient is doing well, relatively asymptomatic, no cough no wheezing no shortness of breath. His last chest x-ray showed mild pulmonary vascular congestion and this was 2 days ago. Clinically the patient is feeling better, and more improvement as he is undergoing further hemodialysis. Patient is on room air, O2 sat is 97% he is hemodynamically stable. Objective - Vital Signs Vital signs: Vital Signs Temp 97.4 F L 07/09/24 13:48 Pulse 84 03/26/24 13:48 Resp 18 03/26/24 13:48 BP 111/54 03/26/24 13:48 Pulse Ox 97 03/26/24 11:33 FiO2 Intake & Output 03/25/24 03/26/24 03/26/24 18:59 06:59 18:59 Intake Total 1234 240 880 Output Total 3000 100 2370 Balance -1766 140 -1490 Weight 65.3 kg Intake: Oral 834 240 480 Hemodialysis 400 400 Output: Urine 600 100 Hemodialysis 2400 2370 Other: Voiding Method Indwelling Catheter Indwelling Catheter Indwelling Catheter - Exam GENERAL EXAM: Revealed a an 78-year-old white male in no distress, on room air undergoing hemodialysis HEAD: Normocephalic and atraumatic EYES: Normal reaction of pupils, equal size. NOSE: Clear with pink turbinates. THROAT: No erythema or exudates. NECK: No masses, no JVD. CHEST: No chest wall deformity. LUNGS: Clear bilaterally no crackles rhonchi or wheezes CVS: S1 and S2 normal with no audible murmur, regular rhythm. No extra heart sounds ABDOMEN: No hepatosplenomegaly, active bowel sounds, no guarding or rigidity. SKIN: No rashes CENTRAL NERVOUS SYSTEM: Alert and oriented x 3 no gross focal deficit EXTREMITIES: No clubbing edema or cyanosis - Labs CBC & Chem 7: 03/25/24 07:44 03/25/24 07:44 Labs: Abnormal Lab Results - Last 24 Hours (Table) 03/25/24 03/25/24 03/26/24 Range/Units 16:15 20:04 02:11 POC Glucose (mg/dL) 133 H 281 H 247 H (70-110) mg/dL 03/26/24 03/26/24 Range/Units 06:50 11:27 POC Glucose (mg/dL) 174 H 141 H (70-110) mg/dL Assessment and Plan Assessment: Impression: Acute hypoxic respiratory failure, multifactorial Acute COPD exacerbation Acute systolic congestive heart failure in the setting of chronic kidney failure and requiring hemodialysis Chronic atrial fibrillation Urinary tract infection secondary to Klebsiella pneumoniae, treated with ceftriaxone Chronic kidney disease stage IV History of BPH and previous TURP Benign essential hypertension Dyslipidemia Type 2 diabetes Coronary artery disease and previous stent placement Moderate severe COPD Obstructive sleep apnea syndrome Obesity with BMI of 38.9 Recommendation: Continue present supportive care measures Continue bronchodilators including DuoNeb, Pulmicort, and Perforomist. Continue prednisone, and taper Continue hemodialysis Ambulate and increase activity as tolerated Will continue to follow Time with Patient: Less than 30
[2024-03-26 16:09] VITALS: PULSE 65
--- NOTE | 2024-03-30 08:24 | P.DS ---
Providers Date of admission: 03/13/24 13:45 Attending physician: Salo Hannon Consults: 03/13/24 13:49 Consult Physician Routine Consulting Provider: Carla Pedraza Consult Reason/Comments: NANCY Do you want consulting provider notified?: Yes 03/13/24 16:35 Consult Physician Routine Consulting Provider: Lei Wang Consult Reason/Comments: copd Do you want consulting provider notified?: Yes 03/13/24 17:24 Consult Physician Urgent Consulting Provider: Lobo Jordan Consult Reason/Comments: retension , previous surgery Do you want consulting provider notified?: Yes 03/17/24 10:40 Consult Physician Routine Consulting Provider: Hoang Marshall Consult Reason/Comments: p-cath Do you want consulting provider notified?: Yes Primary care physician: Tomasz Isbell Hospital Course: Final Diagnosis Acute hypoxemic respiratory failure; likely secondary to acute COPD exacerbation and a systolic CHF exacerbation. Atrial fibrillation with a rapid ventricular response Acute exacerbation of chronic systolic congestive heart failure. Ejection fraction 35 to 40%. Global hypokinesis Acute on chronic kidney disease stage IV, possibly postobstructive secondary to retention. Newly started on hemodialysis this admission. Urinary retention requiring indwelling correa catheter Urinary tract infection secondary to Klebsiella pneumoniae; completed the course of antibiotics. Hx hyperlipidemia Hypertension Diabetes Mellitus type 2 Hx of coronary artery disease with prior PCI Discharge Disposition Stable for discharge home. He is overall guarded prognosis secondary to his multiple medical comorbidities and weakness. Patient has a chair time at [facility] for hemodialysis Monday at 1140. Patient will need to repeat blood work on at his dialysis session. Patient was eval by urology and had a indwelling catheter placed and will follow-up with Dr. Mike in the office for further management and recommendations. Is on Eliquis 2.5 mg twice a day as well as torsemide, amiodarone. Patient will be discharged on a combination inhaler as well as an oral prednisone taper and will follow-up with pulmonary services in the office. Patient to see his PCP Dr. Isbell 1 to 2 days. Hospital Course 78-year-old white male with past medical history significant for COPD, obstructive sleep apnea, coronary artery disease, hypertension, hyperlipidemia, chronic kidney disease, BPH and previous TURP. Patient presented to emergency room complaining of about 4 weeks of worsening shortness of breath. Accompanied by chest tightness, wheezing, cough with green phlegm. Chest x-ray on arrival showed low lung volumes and general hazy appearance, atelectasis versus pulmonary edema. Also, noted to be more confused at home. ABG was drawn in the emergency department, with a PaO2 of 93, pCO2 of 37, pH of 7.36. He is also has had issues with frequent urination and incomplete voiding. He has history of urinary retention and underwent previous TURP in the past. Denies any burning or dysuria. Denies suprapubic pain. Denies fevers. Urinalysis positive for leukocyte esterase and bacteria. CBC: WBC count 12.1, hemoglobin 12.8, hematocrit 40.5, platelets 274. CMP: Sodium 143, potassium 4.2, chloride 110, serum bicarb 20, BUN 87, creatinine 4.44, glucose 72. Does have an indwelling urinary catheter. lactic 2. LFTs not elevated. Troponin 0.047. NT proBNP 4860. Negative for influenza, RSV, COVID. Patient was felt to be in CHF exacerbation due to acute systolic heart failure. Patient has acute systolic heart failure. His ejection fraction is 35 to 40% with global hypokinesis. Patient had worsening renal function this admission was started newly on hemodialysis on March 18. Patient also had atrial fibrillation with rapid ventricular rate was started on Eliquis for anticoagulation and is on amiodarone metoprolol. His urine culture shows Klebsiella pneumonia he completed the course of antibiotics. Patient was followed closely this admission by cardiology pulmonary and nephrology. He was set up for outpatient hemodialysis at [facility] on a Monday schedule. Patient was doing well and has been weaned to room air at this time. His shortness of breath has significantly improved. Recent creatinine is 3.53. Is not having any chest pain at this time he is awake alert oriented x 3. He does have diffuse weakness and is using a Esteban lift for transport. He does not want to go to rehab. He will be discharged home. Please see medication reconciliation for a list of current medications. Thank you for allowing us to participate in the care of this patient. The impression and plan of care has been dictated by Mirna Sen, Nurse Practitioner as directed. Dr. Dena MD I have performed a history and physical examination and medical decision making of this patient, discussed the same with the dictator, and agree with the dictators assessment and plan as written, documented as a scribe. Based on total visit time, I have performed more than 50% of this visit. Patient Condition at Discharge: Fair Plan - Discharge Summary New Discharge Prescriptions: New Metoprolol Tartrate [Lopressor] 100 mg PO BID #60 tab Mometasone/Formoterol [Dulera 100 Mcg-5 Mcg Inhaler] 1 puff INHALATION BID #13 gm Famotidine [Pepcid] 20 mg PO DAILY #30 tablet Fluticasone Propion/Salmeterol [Advair 250-50 Diskus] 1 inhalation PO BID #1 each Amiodarone [Cordarone] 200 mg PO BID #60 tab predniSONE [Deltasone] 20 mg PO DIRECTED 5 Days #4 tab Torsemide [Demadex] 40 mg PO DAILY #30 tab Apixaban [Eliquis] 2.5 mg PO BID #60 tab Calcium Acetate [PhosLo] 667 mg PO BID-W/MEALS #60 tab Midodrine [ProAmatine] 10 mg PO AC-TID PRN #20 tab PRN Reason: Hypotension guaiFENesin [Mucinex] 600 mg PO Q12HR tab Continue Furosemide [Lasix] 40 mg PO BID-W/MEALS calcitrioL 0.25 mcg PO DAILY glipiZIDE [Glucotrol] 5 mg PO AC-BID Ferrous Sulfate [Iron (65 MG Elemental)] 325 mg PO DAILY Tamsulosin HCl [Flomax] 0.4 mg PO BID-W/MEALS Insulin Glargine,Hum.rec.anlog [Lantus Solostar Pen] 60 units SQ DAILY Discontinued Aspirin EC [Ecotrin] 325 mg PO DAILY lisinopriL [Zestril] 2.5 mg PO DAILY Dapagliflozin Propanediol [Farxiga] 10 mg PO DAILY Verapamil Sr [Isoptin Sr] 120 mg PO BID-W/MEALS Discharge Medication List Furosemide [Lasix] 40 mg PO BID-W/MEALS 05/03/18 [History] Ferrous Sulfate [Iron (65 MG Elemental)] 325 mg PO DAILY 03/13/24 [History] Insulin Glargine,Hum.rec.anlog [Lantus Solostar Pen] 60 units SQ DAILY 03/13/24 [History] Tamsulosin HCl [Flomax] 0.4 mg PO BID-W/MEALS 03/13/24 [History] calcitrioL 0.25 mcg PO DAILY 03/13/24 [History] glipiZIDE [Glucotrol] 5 mg PO AC-BID 03/13/24 [History] Amiodarone [Cordarone] 200 mg PO BID #60 tab 03/26/24 [Rx] Apixaban [Eliquis] 2.5 mg PO BID #60 tab 03/26/24 [Rx] Calcium Acetate [PhosLo] 667 mg PO BID-W/MEALS #60 tab 03/26/24 [Rx] Famotidine [Pepcid] 20 mg PO DAILY #30 tablet 03/26/24 [Rx] Metoprolol Tartrate [Lopressor] 100 mg PO BID #60 tab 03/26/24 [Rx] Midodrine [ProAmatine] 10 mg PO AC-TID PRN #20 tab 03/26/24 [Rx] Mometasone/Formoterol [Dulera 100 Mcg-5 Mcg Inhaler] 1 puff INHALATION BID #13 gm 03/26/24 [Rx] Torsemide [Demadex] 40 mg PO DAILY #30 tab 03/26/24 [Rx] guaiFENesin [Mucinex] 600 mg PO Q12HR tab 03/26/24 [Rx] predniSONE [Deltasone] 20 mg PO DIRECTED 5 Days #4 tab 03/26/24 [Rx] Fluticasone Propion/Salmeterol [Advair 250-50 Diskus] 1 inhalation PO BID #1 each 03/27/24 [Rx] Follow up Appointment(s)/Referral(s): Megan Rodriguez MD [STAFF PHYSICIAN] - 04/29/24 3:30 pm [facility] [NON-STAFF] - 03/28/24 11:40 am (Please arrive a half hour early on your 1st day of dialysis at the center. Hemodialysis will be every Monday, , and Monday at 11:40 a.m. ) Lobo Jordan MD [STAFF PHYSICIAN] - 1 Week (Please call to schedule apt. Make office aware that patient has a correa catheter for retention. ) Tomasz Isbell DO [Primary Care Provider] - 1-2 days (Please call to schedule apt. ) Ambulatory/Diagnostic Orders: Basic Metabolic Panel [LAB.AMB] Time Frame: 3 Days, Location: None Selected Complete Blood Count w/diff [LAB.AMB] Location: None Selected Magnesium [LAB.AMB] Location: None Selected Patient Instructions/Handouts: Dialysis Diet (DC) Activity/Diet/Wound Care/Special Instructions: Chair time at [facility] for hemodialysis is Monday at 1140. Repeat blood work with hemodialyis on bring lab scripts to your hemodialysis session on Keep indwelling catheter in place and follow up with Dr. Jordan in the office for further management and recommendations on discharge. Discharge Disposition: HOME SELF-CARE
--- NOTE | 2024-04-04 11:52 | PCN ---
PROCEDURE NOTE The patient was brought to the labor and delivery nurse. Right side of the neck and chest was prepped, and drapes applied in a sterile manner. 1% lidocaine infiltrated in the neck and chest area with IV sedation. Ultrasound-guided micropuncture introduced in the right jugular vein. Micropuncture guidewire was passed and 4-Bur[place] dilator advanced on top of the guidewire. After that, we passed a regular guidewire through the sheath, which was parked in the inferior vena cava. Then, we created a tunnel. Through the tunnel, we brought 23 cm dialysis catheter. Then, we passed a dilator and sheath on top of the guidewire through the fluoroscopy control. Through the sheath, we introduced the dialysis catheter. Sheath was removed, tip of catheter in superior vena cavoatrial junction, flushed with heparin saline and hep-locked, secured with 3-0 nylon. Dressing applied. The patient tolerated the procedure well. Plan is, the patient will go to the floor and x-ray of the chest. MMODL / IJN: [id number] /
== END 2024-03-26 17:12 | disposition home or self-care (01) | DRG 291 ==
LOC: EC 11:17 → 3SCARD 13:45
PROVIDERS: ADMIT Hospitalist; ATTEND Hospitalist
PROC: 3E033RZ Introduction of Antiarrhythmic into Peripheral Vein, Percutaneous Approach (ICD-10-PCS; 2024-03-15)
PROC: 02HV33Z Insertion of Infusion Device into Superior Vena Cava, Percutaneous Approach (ICD-10-PCS; principal; 2024-03-18 07:30)
PROC: 0JH60XZ Insertion of Tunneled Vascular Access Device into Chest Subcutaneous Tissue and Fascia, Open Approach (ICD-10-PCS; principal; 2024-03-18 07:30)
PROC: 5A1D70Z Performance of Urinary Filtration, Intermittent, Less than 6 Hours Per Day (ICD-10-PCS; 2024-03-18 07:30)
DX: I13.0 Hypertensive heart and chronic kidney disease with heart failure and stage 1 through stage 4 chronic kidney disease, or unspecified chronic kidney disease (principal); I50.23 Acute on chronic systolic (congestive) heart failure; J96.21 Acute and chronic respiratory failure with hypoxia; N17.0 Acute kidney failure with tubular necrosis; E87.20 Acidosis, unspecified; I48.3 Typical atrial flutter; J44.1 Chronic obstructive pulmonary disease with (acute) exacerbation; N18.4 Chronic kidney disease, stage 4 (severe); N39.0 Urinary tract infection, site not specified; I48.0 Paroxysmal atrial fibrillation; E11.22 Type 2 diabetes mellitus with diabetic chronic kidney disease; E11.65 Type 2 diabetes mellitus with hyperglycemia; E83.9 Disorder of mineral metabolism, unspecified; E83.39 Other disorders of phosphorus metabolism; B96.1 Klebsiella pneumoniae [K. pneumoniae] as the cause of diseases classified elsewhere; I25.5 Ischemic cardiomyopathy; E66.9 Obesity, unspecified; Z68.38 Body mass index [BMI] 38.0-38.9, adult; Z99.2 Dependence on renal dialysis; Z66 Do not resuscitate; Z79.4 Long term (current) use of insulin; I25.10 Atherosclerotic heart disease of native coronary artery without angina pectoris; N40.1 Benign prostatic hyperplasia with lower urinary tract symptoms; R33.8 Other retention of urine; E78.5 Hyperlipidemia, unspecified; G47.33 Obstructive sleep apnea (adult) (pediatric); I25.2 Old myocardial infarction; R79.89 Other specified abnormal findings of blood chemistry; Z79.82 Long term (current) use of aspirin; Z79.84 Long term (current) use of oral hypoglycemic drugs; Z79.899 Other long term (current) drug therapy; Z95.5 Presence of coronary angioplasty implant and graft; Z85.828 Personal history of other malignant neoplasm of skin; Z71.3 Dietary counseling and surveillance
CPT/HCPCS: 36415; 36558; 36600; 51702; 51798; 71045; 71046; 76770; 76937; 77001; 80048; 80053; 81001; 82805; 83036; 83605; 83735; 83880; 84100; 84145; 84439; 84443; 84484; 85025; 85027; 85610; 85730; 86704; 86706; 87040; 87070; 87077; 87086; 87186; 87205; 87324; 87340; 87636; 90935; 93005; 93306; 94640; 94760; 96365; 96375; 96376; 99291

== ENCOUNTER 2024-04-10 17:40 | Emergency (ER) | payer MEDICARE ==
--- NOTE | 2024-04-10 18:44 | ED ---
Weakness HPI - History of Present Illness MD Complaint: generalized weakness, lack of energy -: days(s) Location: generalized Severity: mild Severity scale (1-10): 2 Quality: tingling, numbness, aching Consistency: constant Improves with: none Context: recent illness, history of similar Associated Symptoms: denies other symptoms <Isai Guzman - Last Filed: 04/10/24 23:07> - General Source: patient Mode of arrival: EMS <Stephany Lane - Last Filed: 04/11/24 00:46> - General Chief complaint: Weakness Stated complaint: vomiting blood Time Seen by Provider: 04/10/24 18:05 - History of Present Illness Initial comments: This is an 78-year-old male to ER for evaluation of alleged upper GI bleed with vomiting blood weakness and altered mental status. Patient is on Eliquis with recent diagnosis of atrial fibrillation. Patient is on dialysis and has missed recent dialysis and patient has a decreased mental status here in the ER, patient was found to have fever (Isai Guzman) 78-year-old male with past medical history of COPD, CHF, diabetes, ckd with recent initiation on dialysis comes to the emergency department with hematemesis. Family is at bedside and provides history. States that the patient has been having several episodes of maroon-colored emesis since 11:00 this morning. He is also reporting to weakness. History of upper GI bleeding in the past. He was recently initiated on Eliquis due to a recent diagnosis of A-fib. Patient was hospitalized for an extended period of time between March 13 and March 26. Patient had a COPD exacerbation, new onset A-fib. He was also having urinary retention so Reynolds catheter was placed as well as a right chest wall dialysis catheter. He has dialysis Monday, and Saturdays. Patient did miss 2 sessions of his dialysis, the last session missed was Monday. Patient denies any chest or abdominal pain. No report dark stools. He did see the urologist on Monday and the Reynolds catheter was taken out. Family states that he has had minimal output of urine. They have been unable to get him to take any of his medications today. No reported confusion. No fevers but patient does arrive with a temp of 100.6. No other alleviating, precipitating or modifying factors (Stephany Lane) - Related Data Home Medications Medication Instructions Recorded Confirmed Furosemide [Lasix] 40 mg PO BID-W/MEALS 05/03/18 04/10/24 Ferrous Sulfate [Iron (65 MG 325 mg PO DAILY 03/13/24 04/10/24 Elemental)] Insulin Glargine,Hum.rec.anlog 60 units SQ DAILY 03/13/24 04/10/24 [Lantus Solostar Pen] Tamsulosin HCl [Flomax] 0.4 mg PO BID-W/MEALS 03/13/24 04/10/24 calcitrioL 0.25 mcg PO DAILY 03/13/24 04/10/24 glipiZIDE [Glucotrol] 5 mg PO AC-BID 03/13/24 04/10/24 Fluticasone Propion/Salmeterol 1 puff INHALATION RT-BID 04/10/24 04/10/24 [Wixela 250-50 Inhub] Sulfamethox-Tmp 800-160Mg [Bactrim 1 tab PO Q12HR 04/10/24 04/10/24 DS 800-160 mg] Previous Rx's Medication Instructions Recorded Amiodarone [Cordarone] 200 mg PO BID #60 tab 03/26/24 Apixaban [Eliquis] 2.5 mg PO BID #60 tab 03/26/24 Calcium Acetate [PhosLo] 667 mg PO BID-W/MEALS #60 tab 03/26/24 Famotidine [Pepcid] 20 mg PO DAILY #30 tablet 03/26/24 Metoprolol Tartrate [Lopressor] 100 mg PO BID #60 tab 03/26/24 Midodrine [ProAmatine] 10 mg PO AC-TID PRN #20 tab 03/26/24 Torsemide [Demadex] 40 mg PO DAILY #30 tab 03/26/24 guaiFENesin [Mucinex] 600 mg PO Q12HR tab 03/26/24 Allergies Allergy/AdvReac Type Severity Reaction Status Date / Time No Known Allergies Allergy Verified 04/10/24 20:40 Review of Systems ROS Other: All systems not noted in ROS Statement are negative. <Isai Guzman - Last Filed: 04/10/24 23:07> ROS Other: All systems not noted in ROS Statement are negative. <Stephany Lane - Last Filed: 04/11/24 00:46> ROS Statement: Those systems with pertinent positive or pertinent negative responses have been documented in the HPI. Past Medical History Past Medical History: Coronary Artery Disease (CAD), COPD, Diabetes Mellitus, Hyperlipidemia, Hypertension, Myocardial Infarction (DC), Pneumonia, Sleep Apnea/CPAP/BIPAP Additional Past Medical History / Comment(s): skin cancer from his scalp that has been removed Last Myocardial Infarction Date:: 2011 History of Any Multi-Drug Resistant Organisms: None Reported Past Surgical History: Cholecystectomy, Heart Catheterization With Stent, Hernia Repair Additional Past Surgical History / Comment(s): UMBILICAL HERNIA REPAIR.VASECTOMY, colonoscopy, skin ca on scalp removed. Past Anesthesia/Blood Transfusion Reactions: No Reported Reaction Date of Last Stent Placement:: 2011 Past Psychological History: No Psychological Hx Reported Smoking Status: Never smoker Past Alcohol Use History: None Reported Past Drug Use History: None Reported - Past Family History Father Family Medical History: CVA/TIA, Hypertension, Myocardial Infarction (DC) Additional Family Medical History / Comment(s): AT AGE 73-DC Mother Family Medical History: Renal Disease Additional Family Medical History / Comment(s): AT AGE 56 COMPLICATIONS FROM DIABETES <Stephany Lane - Last Filed: 04/11/24 00:46> General Exam General appearance: alert, in no apparent distress Head exam: Present: atraumatic, normocephalic, normal inspection Eye exam: Present: normal appearance, PERRL, EOMI. Absent: scleral icterus, conjunctival injection, periorbital swelling ENT exam: Present: normal exam, mucous membranes moist Neck exam: Present: normal inspection. Absent: tenderness, meningismus, lymphadenopathy Respiratory exam: Present: normal lung sounds bilaterally. Absent: respiratory distress, wheezes, rales, rhonchi, stridor Cardiovascular Exam: Present: regular rate, normal rhythm, normal heart sounds. Absent: systolic murmur, diastolic murmur, rubs, gallop, clicks GI/Abdominal exam: Present: soft, normal bowel sounds. Absent: distended, tenderness, guarding, rebound, rigid Extremities exam: Present: normal inspection, full ROM, normal capillary refill. Absent: tenderness, pedal edema, joint swelling, calf tenderness Back exam: Present: normal inspection Neurological exam: Present: alert, oriented X3, CN II-XII intact Psychiatric exam: Present: normal affect, normal mood Skin exam: Present: warm, dry, intact, normal color. Absent: rash <Isai Guzman - Last Filed: 04/10/24 23:07> General appearance: other (fatigued but responses to questioning) Head exam: Present: atraumatic, normocephalic, normal inspection ENT exam: Present: mucous membranes dry Neck exam: Present: normal inspection. Absent: tenderness, meningismus, lymphadenopathy Respiratory exam: Present: wheezes, other (tachypnia) Cardiovascular Exam: Present: tachycardia, irregular rhythm GI/Abdominal exam: Present: soft, normal bowel sounds. Absent: distended, tenderness, guarding, rebound, rigid Rectal exam: Present: heme (-) stool, other (green stool) Extremities exam: Present: normal inspection, full ROM, normal capillary refill. Absent: tenderness, pedal edema, joint swelling, calf tenderness Neurological exam: Present: alert Psychiatric exam: Present: flat affect Skin exam: Present: warm, dry, intact, normal color. Absent: rash <Stephany Lane A - Last Filed: 04/11/24 00:46> Course <Isai Guzman - Last Filed: 04/10/24 23:07> Vital Signs 04/10/24 04/10/24 04/10/24 17:57 20:46 20:58 Temperature 100.6 F H Pulse Rate 109 H 100 101 H Respiratory 33 H Rate Blood Pressure 120/98 O2 Sat by Pulse 99 Oximetry 04/10/24 04/10/24 04/10/24 21:10 21:30 22:57 Temperature 100.1 F H Pulse Rate 108 H 120 H Respiratory 24 22 Rate Blood Pressure 147/79 141/79 O2 Sat by Pulse 97 99 Oximetry 04/10/24 04/10/24 04/11/24 23:00 23:05 00:07 Temperature 102.2 F H 102.2 F H 98.7 F Pulse Rate 111 H Respiratory 22 Rate Blood Pressure O2 Sat by Pulse 100 Oximetry 04/11/24 00:30 Temperature 99.8 F H Pulse Rate 99 Respiratory 22 Rate Blood Pressure 92/58 O2 Sat by Pulse 100 Oximetry - Reevaluation(s) Reevaluation #1: 04/10/24 22:43 Medical records reviewed (Isai Guzman) Reevaluation #2: 04/10/24 22:43 Symptoms unchanged (Isai Guzman) Reevaluation #3: 04/10/24 22:43 Informed of results and questions answered (Isai Guzman) Reevaluation #5: Differential Altered Mental Status: Hypoglycemia, DKA, hypercapnia, ETOH, overdose, CO poisoning, trauma, myxedema coma, HTN encephalopathy, infection, encephalitis, psychosis, intercranial hemorrhage, hepatic encephalopathy, meningitis, CVA, this is not meant to be an all-inclusive list (Isai Guzman) - Consultations Consultation #1: i did speak with [facility] ER to ER transfer they do agree to accept this patient (Isai Guzman) Medical Decision Making - Lab Data Result diagrams: 04/10/24 18:43 04/10/24 18:43 <Isai Guzman - Last Filed: 04/10/24 23:07> - Lab Data Result diagrams: 04/10/24 22:58 04/10/24 22:58 <Stephany Lane - Last Filed: 04/11/24 00:46> - Medical Decision Making Was pt. sent in by a medical professional or institution (MEGAN Sandoval, OFFICE SUPPORT CLERK, urgent care, hospital, or alf...) When possible be specific @ -No Did you speak to anyone other than the patient for history (EMS, parent, family, police, friend...)? What history was obtained from this source @ -Spoke with family for history Did you review nursing and triage notes (agree or disagree)? Why? @ -I reviewed and agree with nursing and triage notes Were old charts reviewed (outside hosp., previous admission, EMS record, old EKG, old radiological studies, urgent care reports/EKG's, alf records)? Report findings @ -Reviewed patient's discharge summary from March 26 Differential Diagnosis (chest pain, altered mental status, abdominal pain women, abdominal pain men, vaginal bleeding, weakness, fever, dyspnea, syncope, headache, dizziness, GI bleed, back pain, seizure, CVA, palpatations, mental health, musculoskeletal)? @ -Differential GI Bleed: Esophageal varices, aortoenteric fistula, Arabella-Garrido, gastritis, peptic ulcer disease, diverticulosis, inflammatory bowel disease, hemorrhoids, fissure, colitis, malignancy, Meckels diverticulum, this is not meant to be an all- inclusive list. EKG interpreted by me (3pts min.). @ -Yes and demonstrates atrial for but with a rate of 112. QRS 139. QTc of 391. ST depression V4 through V6 X-rays interpreted by me (1pt min.). @ -yes and demonstrates no acute process of the patient's chest CT interpreted by me (1pt min.). @ -Pending at this time U/S interpreted by me (1pt. min.). @ -None done What testing was considered but not performed or refused? (CT, X-rays, U/S, labs)? Why? @ -CT with contrast was considered however patient is dialysis dependent What meds were considered but not given or refused? Why? @ -IV fluids with concern that the patient does have volume overload. Antipyretics also considered however repeat temp is normal without intervention Did you discuss the management of the patient with other professionals (professionals i.e. , PA, OFFICE SUPPORT CLERK, lab, RT, psych nurse, social work program coordinator, housing relocation, teacher, records officer, supervisor case loading)? Give summary @ -Spoke with the transfer center at [facility] Was smoking cessation discussed for >3mins.? @ -No Was critical care preformed (if so, how long)? @ -No Were there social determinants of health that impacted care today? How? (Homelessness, low income, unemployed, alcoholism, drug addiction, transportation, low edu. Level, literacy, decrease access to med. care, longterm, rehab)? @ -No Was there de-escalation of care discussed even if they declined (Discuss DNR or withdrawal of care, Hospice)? DNR status @ -This was discussed - family is discussing CODE STATUS What co-morbidities impacted this encounter? (DM, HTN, Smoking, COPD, CAD, Cancer, CVA, ARF, Chemo, Hep., AIDS, mental health diagnosis, sleep apnea, morbid obesity)? @ -A-fib, CHF, COPD, end-stage renal disease on hemodialysis Was patient admitted / discharged? Hospital course, mention meds given and route, prescriptions, significant lab abnormalities, going to OR and other pertinent info. @ -Upon arrival patient is seen and evaluated in room 10. Thorough history and physical exam was performed. Patient has no emesis upon hospital arrival. Rectal exam was performed which demonstrates green stool which is occult negative. IV was established and laboratory studies are conducted. Patient was given a breathing treatment due to his tachypnea and wheeze. Chest x-ray was performed which demonstrates no signs of volume overload. Laboratory studies are within normal limits. Patient is stable vital signs. He does have an episode of acute confusion with minimal responsiveness. Accu-Chek is performed and normal. ABG is obtained and is alkalotic. Patient will be sent over for CT of his brain as well as his abdomen pelvis. He is pending transfer to [facility] for this will be placed on hold as patient needs imaging at this time. Patient signed out to Dr. Guzman ([facility]) - Lab Data Lab Results 04/10/24 04/10/24 04/10/24 Range/Units 18:43 18:43 18:43 WBC 8.1 (3.8-10.6) k/uL RBC 3.80 L (4.30-5.90) m/uL Hgb 11.3 L (13.0-17.5) gm/dL Hct 34.5 L (39.0-53.0) % MCV 90.8 (80.0-100.0) fL MCH 29.7 (25.0-35.0) pg MCHC 32.7 (31.0-37.0) g/dL RDW 16.0 H (11.5-15.5) % Plt Count 177 (150-450) k/uL MPV 7.1 Neutrophils % 94 % Neutrophils % (Manual) % Band Neuts % (Manual) % Lymphocytes % 2 % Lymphocytes % (Manual) % Monocytes % 3 % Monocytes % (Manual) % Eosinophils % 1 % Basophils % 0 % Metamyelocytes % % Myelocytes % % Neutrophils # 7.6 (1.3-7.7) k/uL Neutrophils # (Manual) (1.3-7.7) k/uL Lymphocytes # 0.1 L (1.0-4.8) k/uL Lymphocytes # (Manual) (1.0-4.8) k/uL Monocytes # 0.2 (0-1.0) k/uL Monocytes # (Manual) (0-1.0) k/uL Eosinophils # 0.1 (0-0.7) k/uL Basophils # 0.0 (0-0.2) k/uL Metamyelocytes # (Man) (0) k/uL Myelocytes # (Manual) (0) k/uL Nucleated RBCs (0-0) /100 WBC Manual Slide Review Performed Polychromasia Anisocytosis Slight PT 13.4 H (10.0-12.5) sec INR 1.3 H (<1.2) APTT 20.6 L (22.0-30.0) sec Sample Site ABG pH (7.35-7.45) ABG pCO2 (35-45) mmHg ABG pO2 (83-108) mmHg ABG HCO3 (21-25) mmol/L ABG Total CO2 (19-24) mmol/L ABG O2 Saturation (94-97) % ABG Base Excess mmol/L Reginaldo Test FiO2 % Sodium 134 L (137-145) mmol/L Potassium 3.8 (3.5-5.1) mmol/L Chloride 98 (98-107) mmol/L Carbon Dioxide 29 (22-30) mmol/L Anion Gap 7 mmol/L BUN 45 H (9-20) mg/dL Creatinine 5.05 H (0.66-1.25) mg/dL Est GFR (CKD-EPI)AfAm 12 (>60 ml/min/1.73 sqM) Est GFR (CKD-EPI)NonAf 10 (>60 ml/min/1.73 sqM) Glucose 128 H (74-99) mg/dL POC Glucose (mg/dL) (70-110) mg/dL POC Glu Patient Safety Sitter ID Lactic Ac Sepsis Rflx Plasma Lactic Acid Yuri (0.7-2.0) mmol/L Calcium 8.4 (8.4-10.2) mg/dL Phosphorus 1.7 L (2.5-4.5) mg/dL Magnesium 1.5 L (1.6-2.3) mg/dL Total Bilirubin 1.0 (0.2-1.3) mg/dL AST 25 (17-59) U/L ALT 19 (4-49) U/L Alkaline Phosphatase 55 (38-126) U/L Ammonia (<30) umol/L Troponin I (0.000-0.034) ng/mL NT-Pro-B Natriuret Pep 9070 pg/mL Total Protein 5.3 L (6.3-8.2) g/dL Albumin 2.9 L (3.5-5.0) g/dL Stool Occult Blood (Negative) Influenza Type A (PCR) (Not Detectd) Influenza Type B (PCR) (Not Detectd) RSV (PCR) (Not Detectd) SARS-CoV-2 (PCR) (Not Detectd) Blood Type Recheck Bld Type Recheck Status Spec Expiration Date 04/10/24 04/10/24 04/10/24 Range/Units 18:43 18:43 19:47 WBC (3.8-10.6) k/uL RBC (4.30-5.90) m/uL Hgb (13.0-17.5) gm/dL Hct (39.0-53.0) % MCV (80.0-100.0) fL MCH (25.0-35.0) pg MCHC (31.0-37.0) g/dL RDW (11.5-15.5) % Plt Count (150-450) k/uL MPV Neutrophils % % Neutrophils % (Manual) % Band Neuts % (Manual) % Lymphocytes % % Lymphocytes % (Manual) % Monocytes % % Monocytes % (Manual) % Eosinophils % % Basophils % % Metamyelocytes % % Myelocytes % % Neutrophils # (1.3-7.7) k/uL Neutrophils # (Manual) (1.3-7.7) k/uL Lymphocytes # (1.0-4.8) k/uL Lymphocytes # (Manual) (1.0-4.8) k/uL Monocytes # (0-1.0) k/uL Monocytes # (Manual) (0-1.0) k/uL Eosinophils # (0-0.7) k/uL Basophils # (0-0.2) k/uL Metamyelocytes # (Man) (0) k/uL Myelocytes # (Manual) (0) k/uL Nucleated RBCs (0-0) /100 WBC Manual Slide Review Polychromasia Anisocytosis PT (10.0-12.5) sec INR (<1.2) APTT (22.0-30.0) sec Sample Site ABG pH (7.35-7.45) ABG pCO2 (35-45) mmHg ABG pO2 (83-108) mmHg ABG HCO3 (21-25) mmol/L ABG Total CO2 (19-24) mmol/L ABG O2 Saturation (94-97) % ABG Base Excess mmol/L Reginaldo Test FiO2 % Sodium (137-145) mmol/L Potassium (3.5-5.1) mmol/L Chloride (98-107) mmol/L Carbon Dioxide (22-30) mmol/L Anion Gap mmol/L BUN (9-20) mg/dL Creatinine (0.66-1.25) mg/dL Est GFR (CKD-EPI)AfAm (>60 ml/min/1.73 sqM) Est GFR (CKD-EPI)NonAf (>60 ml/min/1.73 sqM) Glucose (74-99) mg/dL POC Glucose (mg/dL) (70-110) mg/dL POC Glu Patient Safety Sitter ID Lactic Ac Sepsis Rflx Plasma Lactic Acid Yuri 3.9 H* (0.7-2.0) mmol/L Calcium (8.4-10.2) mg/dL Phosphorus (2.5-4.5) mg/dL Magnesium (1.6-2.3) mg/dL Total Bilirubin (0.2-1.3) mg/dL AST (17-59) U/L ALT (4-49) U/L Alkaline Phosphatase (38-126) U/L Ammonia (<30) umol/L Troponin I 0.076 H* (0.000-0.034) ng/mL NT-Pro-B Natriuret Pep pg/mL Total Protein (6.3-8.2) g/dL Albumin (3.5-5.0) g/dL Stool Occult Blood (Negative) Influenza Type A (PCR) Not Detected (Not Detectd) Influenza Type B (PCR) Not Detected (Not Detectd) RSV (PCR) Not Detected (Not Detectd) SARS-CoV-2 (PCR) Not Detected (Not Detectd) Blood Type Recheck Bld Type Recheck Status Spec Expiration Date 04/10/24 04/10/24 04/10/24 Range/Units 19:53 19:55 20:38 WBC (3.8-10.6) k/uL RBC (4.30-5.90) m/uL Hgb (13.0-17.5) gm/dL Hct (39.0-53.0) % MCV (80.0-100.0) fL MCH (25.0-35.0) pg MCHC (31.0-37.0) g/dL RDW (11.5-15.5) % Plt Count (150-450) k/uL MPV Neutrophils % % Neutrophils % (Manual) % Band Neuts % (Manual) % Lymphocytes % % Lymphocytes % (Manual) % Monocytes % % Monocytes % (Manual) % Eosinophils % % Basophils % % Metamyelocytes % % Myelocytes % % Neutrophils # (1.3-7.7) k/uL Neutrophils # (Manual) (1.3-7.7) k/uL Lymphocytes # (1.0-4.8) k/uL Lymphocytes # (Manual) (1.0-4.8) k/uL Monocytes # (0-1.0) k/uL Monocytes # (Manual) (0-1.0) k/uL Eosinophils # (0-0.7) k/uL Basophils # (0-0.2) k/uL Metamyelocytes # (Man) (0) k/uL Myelocytes # (Manual) (0) k/uL Nucleated RBCs (0-0) /100 WBC Manual Slide Review Polychromasia Anisocytosis PT (10.0-12.5) sec INR (<1.2) APTT (22.0-30.0) sec Sample Site L radial ABG pH 7.50 H (7.35-7.45) ABG pCO2 38 (35-45) mmHg ABG pO2 86 (83-108) mmHg ABG HCO3 29 H (21-25) mmol/L ABG Total CO2 30 H (19-24) mmol/L ABG O2 Saturation 98.0 H (94-97) % ABG Base Excess 5.7 mmol/L Reginaldo Test Yes FiO2 28 % Sodium (137-145) mmol/L Potassium (3.5-5.1) mmol/L Chloride (98-107) mmol/L Carbon Dioxide (22-30) mmol/L Anion Gap mmol/L BUN (9-20) mg/dL Creatinine (0.66-1.25) mg/dL Est GFR (CKD-EPI)AfAm (>60 ml/min/1.73 sqM) Est GFR (CKD-EPI)NonAf (>60 ml/min/1.73 sqM) Glucose (74-99) mg/dL POC Glucose (mg/dL) (70-110) mg/dL POC Glu Patient Safety Sitter ID Lactic Ac Sepsis Rflx Y Plasma Lactic Acid Yuri (0.7-2.0) mmol/L Calcium (8.4-10.2) mg/dL Phosphorus (2.5-4.5) mg/dL Magnesium (1.6-2.3) mg/dL Total Bilirubin (0.2-1.3) mg/dL AST (17-59) U/L ALT (4-49) U/L Alkaline Phosphatase (38-126) U/L Ammonia (<30) umol/L Troponin I (0.000-0.034) ng/mL NT-Pro-B Natriuret Pep pg/mL Total Protein (6.3-8.2) g/dL Albumin (3.5-5.0) g/dL Stool Occult Blood Negative (Negative) Influenza Type A (PCR) (Not Detectd) Influenza Type B (PCR) (Not Detectd) RSV (PCR) (Not Detectd) SARS-CoV-2 (PCR) (Not Detectd) Blood Type Recheck Bld Type Recheck Status Spec Expiration Date 04/10/24 04/10/24 04/10/24 Range/Units 21:30 22:58 22:58 WBC 12.0 H (3.8-10.6) k/uL RBC 4.15 L (4.30-5.90) m/uL Hgb 12.7 L (13.0-17.5) gm/dL Hct 37.7 L (39.0-53.0) % MCV 91.0 (80.0-100.0) fL MCH 30.6 (25.0-35.0) pg MCHC 33.6 (31.0-37.0) g/dL RDW 16.6 H (11.5-15.5) % Plt Count 225 (150-450) k/uL MPV 7.9 Neutrophils % % Neutrophils % (Manual) 76 % Band Neuts % (Manual) 8 % Lymphocytes % % Lymphocytes % (Manual) 1 % Monocytes % % Monocytes % (Manual) 4 % Eosinophils % % Basophils % % Metamyelocytes % 10 % Myelocytes % 2 % Neutrophils # (1.3-7.7) k/uL Neutrophils # (Manual) 10.00 H (1.3-7.7) k/uL Lymphocytes # (1.0-4.8) k/uL Lymphocytes # (Manual) 0.12 L (1.0-4.8) k/uL Monocytes # (0-1.0) k/uL Monocytes # (Manual) 0.48 (0-1.0) k/uL Eosinophils # (0-0.7) k/uL Basophils # (0-0.2) k/uL Metamyelocytes # (Man) 1.20 H (0) k/uL Myelocytes # (Manual) 0.24 H (0) k/uL Nucleated RBCs 0 (0-0) /100 WBC Manual Slide Review Performed Polychromasia Present Anisocytosis Slight PT (10.0-12.5) sec INR (<1.2) APTT (22.0-30.0) sec Sample Site ABG pH (7.35-7.45) ABG pCO2 (35-45) mmHg ABG pO2 (83-108) mmHg ABG HCO3 (21-25) mmol/L ABG Total CO2 (19-24) mmol/L ABG O2 Saturation (94-97) % ABG Base Excess mmol/L Reginaldo Test FiO2 % Sodium 134 L (137-145) mmol/L Potassium 3.8 (3.5-5.1) mmol/L Chloride 97 L (98-107) mmol/L Carbon Dioxide 26 (22-30) mmol/L Anion Gap 11 mmol/L BUN 49 H (9-20) mg/dL Creatinine 5.73 H (0.66-1.25) mg/dL Est GFR (CKD-EPI)AfAm 10 (>60 ml/min/1.73 sqM) Est GFR (CKD-EPI)NonAf 9 (>60 ml/min/1.73 sqM) Glucose 82 (74-99) mg/dL POC Glucose (mg/dL) 88 (70-110) mg/dL POC Glu Patient Safety Sitter ID Budnik, Rebecca Lactic Ac Sepsis Rflx Plasma Lactic Acid Yuri (0.7-2.0) mmol/L Calcium 8.5 (8.4-10.2) mg/dL Phosphorus 2.5 (2.5-4.5) mg/dL Magnesium 1.5 L (1.6-2.3) mg/dL Total Bilirubin 1.1 (0.2-1.3) mg/dL AST 27 (17-59) U/L ALT 20 (4-49) U/L Alkaline Phosphatase 68 (38-126) U/L Ammonia (<30) umol/L Troponin I (0.000-0.034) ng/mL NT-Pro-B Natriuret Pep pg/mL Total Protein 5.4 L (6.3-8.2) g/dL Albumin 3.1 L (3.5-5.0) g/dL Stool Occult Blood (Negative) Influenza Type A (PCR) (Not Detectd) Influenza Type B (PCR) (Not Detectd) RSV (PCR) (Not Detectd) SARS-CoV-2 (PCR) (Not Detectd) Blood Type Recheck Bld Type Recheck Status Spec Expiration Date 04/10/24 04/10/24 Range/Units 22:58 23:53 WBC (3.8-10.6) k/uL RBC (4.30-5.90) m/uL Hgb (13.0-17.5) gm/dL Hct (39.0-53.0) % MCV (80.0-100.0) fL MCH (25.0-35.0) pg MCHC (31.0-37.0) g/dL RDW (11.5-15.5) % Plt Count (150-450) k/uL MPV Neutrophils % % Neutrophils % (Manual) % Band Neuts % (Manual) % Lymphocytes % % Lymphocytes % (Manual) % Monocytes % % Monocytes % (Manual) % Eosinophils % % Basophils % % Metamyelocytes % % Myelocytes % % Neutrophils # (1.3-7.7) k/uL Neutrophils # (Manual) (1.3-7.7) k/uL Lymphocytes # (1.0-4.8) k/uL Lymphocytes # (Manual) (1.0-4.8) k/uL Monocytes # (0-1.0) k/uL Monocytes # (Manual) (0-1.0) k/uL Eosinophils # (0-0.7) k/uL Basophils # (0-0.2) k/uL Metamyelocytes # (Man) (0) k/uL Myelocytes # (Manual) (0) k/uL Nucleated RBCs (0-0) /100 WBC Manual Slide Review Polychromasia Anisocytosis PT (10.0-12.5) sec INR (<1.2) APTT (22.0-30.0) sec Sample Site ABG pH (7.35-7.45) ABG pCO2 (35-45) mmHg ABG pO2 (83-108) mmHg ABG HCO3 (21-25) mmol/L ABG Total CO2 (19-24) mmol/L ABG O2 Saturation (94-97) % ABG Base Excess mmol/L Reginaldo Test FiO2 % Sodium (137-145) mmol/L Potassium (3.5-5.1) mmol/L Chloride (98-107) mmol/L Carbon Dioxide (22-30) mmol/L Anion Gap mmol/L BUN (9-20) mg/dL Creatinine (0.66-1.25) mg/dL Est GFR (CKD-EPI)AfAm (>60 ml/min/1.73 sqM) Est GFR (CKD-EPI)NonAf (>60 ml/min/1.73 sqM) Glucose (74-99) mg/dL POC Glucose (mg/dL) (70-110) mg/dL POC Glu Patient Safety Sitter ID Lactic Ac Sepsis Rflx Plasma Lactic Acid Yuri 3.9 H* (0.7-2.0) mmol/L Calcium (8.4-10.2) mg/dL Phosphorus (2.5-4.5) mg/dL Magnesium (1.6-2.3) mg/dL Total Bilirubin (0.2-1.3) mg/dL AST (17-59) U/L ALT (4-49) U/L Alkaline Phosphatase (38-126) U/L Ammonia <9 (<30) umol/L Troponin I (0.000-0.034) ng/mL NT-Pro-B Natriuret Pep pg/mL Total Protein (6.3-8.2) g/dL Albumin (3.5-5.0) g/dL Stool Occult Blood (Negative) Influenza Type A (PCR) (Not Detectd) Influenza Type B (PCR) (Not Detectd) RSV (PCR) (Not Detectd) SARS-CoV-2 (PCR) (Not Detectd) Blood Type Recheck No Previous Record Bld Type Recheck Status [facility] Indicated Spec Expiration Date 04/13/2024 - 2352 Critical Care Time Critical Care Time: Yes Total Critical Care Time: 31 <Isai Guzman - Last Filed: 04/10/24 23:07> Disposition Time of Disposition: 23:00 <Isai Guzman - Last Filed: 04/10/24 23:07> - Out of Hospital Transfer - Req. Specs Out of Hospital Transfer - Requested Specifics: Other Emergency Center ([facility]) <Stephany Lane - Last Filed: 04/11/24 00:46> Clinical Impression: GI bleed, COPD exacerbation, CHF (congestive heart failure), Chronic kidney disease, Altered mental status Disposition: OTHER INSTITUTION NOT DEFINED Condition: Critical Referrals: Tomasz Isbell DO [Primary Care Provider] - 1-2 days
[2024-04-10 19:15] LABS: Anisocytosis Slight; Basophils % (A) 0 %; Eosinophils # (A) 0.1 k/uL (0-0.7); Eosinophils % (A) 1 %; HCT 34.5 % (39.0-53.0); HGB 11.3 gm/dL (13.0-17.5); Lymphocytes # (A) 0.1 k/uL (1.0-4.8); Lymphocytes % (A) 2 %; MCH 29.7 pg (25.0-35.0); MCHC 32.7 g/dL (31.0-37.0); MCV 90.8 fL (80.0-100.0); Mean Platelet Volume 7.1; Monocytes # (A) 0.2 k/uL (0-1.0); Monocytes % (A) 3 %; Neutrophils # (A) 7.6 k/uL (1.3-7.7); Neutrophils % (A) 94 %; Platelet Count 177 k/uL (150-450); WBC 8.1 k/uL (3.8-10.6)
[2024-04-10 19:21] LABS: ALT 19 U/L (4-49); AST 25 U/L (17-59); African American GFR (CKD) 12 (>60 ml/min/1.73 sqM); Albumin 2.9 g/dL (3.5-5.0); Alkaline Phosphatase 55 U/L (38-126); Anion Gap 7 mmol/L; Blood Urea Nitrogen 45 mg/dL (9-20); Calcium 8.4 mg/dL (8.4-10.2); Carbon Dioxide 29 mmol/L (22-30); Chloride 98 mmol/L (98-107); Glucose 128 mg/dL (74-99); Magnesium 1.5 mg/dL (1.6-2.3); Non-African American GFR(CKD) 10 (>60 ml/min/1.73 sqM); Phosphorus 1.7 mg/dL (2.5-4.5); Potassium 3.8 mmol/L (3.5-5.1); Sodium 134 mmol/L (137-145); Total Protein 5.3 g/dL (6.3-8.2)
[2024-04-10] MEDS: PANTOPRAZOLE 40 MG/10 ML VIAL IVP STA (19:25)
[2024-04-10 19:29] LABS: NT-Pro-B-Type Natriuretic Pept 9070 pg/mL
[2024-04-10 19:50] LABS: INR 1.3 (<1.2); Prothrombin Time 13.4 sec (10.0-12.5)
[2024-04-10 19:53] LABS: Partial Thromboplastin Time 20.6 sec (22.0-30.0)
--- NOTE | 2024-04-10 20:03 | XR ---
EXAMINATION TYPE: XR chest 2V DATE OF EXAM: 04/10/2024 7:43 PM CLINICAL INDICATION:Male, 78 years old with history of Weakness; COMPARISON: Chest radiographs from 03/24/2024 TECHNIQUE: XR chest 2V Frontal view of the chest. FINDINGS: Lungs/Pleura: There is no evidence of pleural effusion, focal consolidation, or pneumothorax. Pulmonary vascularity: Unremarkable. Heart/mediastinum: Cardiomediastinal silhouette is enlarged and stable. Musculoskeletal: No acute osseous pathology. Other findings: Right chest wall central venous catheter with tip at the superior vena cava. IMPRESSION: No acute cardiopulmonary disease/process.
[2024-04-10 20:46] LABS: Allen Test Performed? Yes
[2024-04-10] MEDS: IPRATROPIUM-ALBUTEROL 3 ML NEB INHALATION STA (20:46)
[2024-04-10 20:47] LABS: ABG Base Excess 5.7 mmol/L; ABG HCO3 29 mmol/L (21-25); ABG PCO2 38 mmHg (35-45); ABG PO2 86 mmHg (83-108); ABG TCO2 30 mmol/L (19-24)
[2024-04-10 21:31] LABS: Glucose,Whole Blood 88 mg/dL (70-110)
[2024-04-10] MEDS: ACETAMINOPHEN IV (For NPO) 1,000 MG in EMPTY BAG 1 BAG IVPB STA (22:55)
[2024-04-10 22:58] VITALS: RESP 22
[2024-04-10] MEDS: SODIUM CHLORIDE 0.9% 1,000 ML IV ONE (22:59)
[2024-04-10] MEDS ORDERED: Kcentra / Balfaxar PER PHARMACY 1 EACH MISC MISCELLANE PRN (23:04)
--- NOTE | 2024-04-10 23:06 | CT ---
EXAM: CT Head Without Intravenous Contrast CLINICAL HISTORY: ITS.REASON CT Reason: ams TECHNIQUE: Axial computed tomography images of the head/brain without intravenous contrast. CTDI is 49.1 mGy and DLP is 1197.4 mGy-cm. This CT exam was performed using one or more of the following dose reduction techniques: automated exposure control, adjustment of the mA and/or kV according to patient size, and/or use of iterative reconstruction technique. COMPARISON: CT brain: 11/22/2017 FINDINGS: Diagnostic sensitivity of the exam is reduced by motion artifact. Brain: No hemorrhage. No evidence of large size acute territorial infarct. No mass-effect or midline shift. Mild/moderate supratentorial ventriculomegaly. Age related cortical atrophy with widening of the extra-axial spaces. Focal zones of decreased density in cerebellar hemispheres LT>RT, likely from chronic ischemic injury. Bones/joints: Unremarkable. No acute fracture. Soft tissues: Unremarkable. Bilateral internal carotid arterial atherosclerosis. Sinuses: Unremarkable as visualized. No acute sinusitis. Mastoid air cells: Unremarkable as visualized. No mastoid effusion. IMPRESSION: No conclusive evidence of acute intracranial process. If there is continued clinical concern, MRI brain exam is recommended. Age-related chronic involutional changes of the brain. Mild/moderate ventriculomegaly, question NPH in the appropriate clinical context. .
[2024-04-10 23:18] LABS: Lactic Acid, Venous 3.9 mmol/L (0.7-2.0)
[2024-04-10 23:24] LABS: Anisocytosis Slight; HCT 37.7 % (39.0-53.0); HGB 12.7 gm/dL (13.0-17.5); MCH 30.6 pg (25.0-35.0); MCHC 33.6 g/dL (31.0-37.0); Mean Platelet Volume 7.9; Platelet Count 225 k/uL (150-450); RBC 4.15 m/uL (4.30-5.90); RDW 16.6 % (11.5-15.5)
--- NOTE | 2024-04-10 23:38 | CT ---
EXAM: CT Abdomen and Pelvis Without Intravenous Contrast CLINICAL HISTORY: ITS.REASON CT Reason: vomiting blood TECHNIQUE: Axial computed tomography images of the abdomen and pelvis without intravenous contrast. CTDI is 33.72 mGy and DLP is 2097.2 mGy-cm. This CT exam was performed using one or more of the following dose reduction techniques: automated exposure control, adjustment of the mA and/or kV according to patient size, and/or use of iterative reconstruction technique. COMPARISON: CT abdomen/pelvis: 05/05/2020 FINDINGS: Diagnostic sensitivity of the exam is markedly reduced by the motion artifact. Lung bases: A mildly elevated right hemidiaphragm. Cardiomegaly. Increased pericardial fat pad. Multivessel calcified coronary arterial atherosclerosis. Calcified subcarinal and left hilar lymph nodes. Bibasilar prominent peripheral vascular markings/ linear atelectatic changes and posteriorly bilateral pleural thickening. No mass. No consolidation. ABDOMEN: Lack of IV contrast limits evaluation of soft tissues/vascular structures. Liver: Diffuse fatty hepatic infiltration. Gallbladder and bile ducts: Prior cholecystectomy. No ductal dilation. Pancreas: Moderately atrophic pancreas. Spleen: No splenomegaly. Adrenals: Unremarkable. No mass. Kidneys and ureters: Somewhat smaller size both kidneys. Bilateral significant perinephric fat stranding. No obstructing stones. No hydronephrosis. Stomach and bowel: Gas filled markedly distended stomach. Anteriorly gas-filled up to 3.7 cm dilated proximal small bowel loops. A 5.4 cm gas filled distended hepatic flexure, otherwise diffuse incomplete distention of the large bowel loops. Sigmoid diverticulosis coli without evidence of acute diverticulitis. No mucosal thickening. PELVIS: Appendix: Normal appendix. Bladder: Mild uniform bladder wall thickening. No stones. Reproductive: There a moderately enlarged prostate, 5.7 x 4.3 x 4.3 cm in size demonstrating centrally coarse glandular calcifications ABDOMEN and PELVIS: Intraperitoneal space: Unremarkable. No free air. No significant fluid collection. Bones/joints: No acute fracture. No dislocation. Osteopenia. Exaggerated lumbar lordosis. Degenerative spondylosis Soft tissues: Unremarkable. A small fat-containing left inguinal hernia. Vasculature: Extensive calcified atherosclerosis of the aortoiliac vasculature and branch vessels.. No abdominal aortic aneurysm. Lymph nodes: Unremarkable. No enlarged lymph nodes. Other findings: . Above the umbilicus rectus abdominis diastasis. IMPRESSION: Cardiomegaly and likely a mild peripheral pulmonary vascular congestion. Posterior bilateral pleural thickening. A markedly distended gas-filled stomach, question gastric outlet obstruction versus gastroparesis. Dilated proximal small bowel loops/segmental adynamic ileus. Sigmoid diverticulosis coli, no evidence of acute diverticulitis or mucosal thickening. Prostatomegaly with uniform bladder wall mild thickening. .
[2024-04-10 23:43] LABS: Band Neutrophils % 8 %; Lymphocytes # (M) 0.12 k/uL (1.0-4.8); Metamyelocytes % 10 %; Monocytes # (M) 0.48 k/uL (0-1.0); Myelocytes # (M) 0.24 k/uL (0); Myelocytes % 2 %; Neutrophils % (M) 76 %; Nucleated Red Blood Cells 0 /100 WBC (0-0); Total Cells Counted 200
[2024-04-10 23:45] LABS: Polychromasia Present
[2024-04-10] MEDS: IBUPROFEN IV 800 MG in SODIUM CHLORIDE 0.9% 250 ML IV ONE (23:48)
[2024-04-10] MEDS: SODIUM CHLORIDE 0.9% 500 ML 500 ML IV STA (23:48)
[2024-04-11] MEDS: EMPTY BAG 1 BAG with HUMAN PROTHROMBN CMPL-BALFAXAR 1,840 UNIT IV ONE (00:02)
[2024-04-11 00:22] LABS: ALT 20 U/L (4-49); AST 27 U/L (17-59); African American GFR (CKD) 10 (>60 ml/min/1.73 sqM); Albumin 3.1 g/dL (3.5-5.0); Alkaline Phosphatase 68 U/L (38-126); Anion Gap 11 mmol/L; Blood Urea Nitrogen 49 mg/dL (9-20); Calcium 8.5 mg/dL (8.4-10.2); Carbon Dioxide 26 mmol/L (22-30); Chloride 97 mmol/L (98-107); Glucose 82 mg/dL (74-99); Magnesium 1.5 mg/dL (1.6-2.3); Non-African American GFR(CKD) 9 (>60 ml/min/1.73 sqM); Phosphorus 2.5 mg/dL (2.5-4.5); Potassium 3.8 mmol/L (3.5-5.1); Sodium 134 mmol/L (137-145); Total Bilirubin 1.1 mg/dL (0.2-1.3); Total Protein 5.4 g/dL (6.3-8.2)
--- NOTE | 2024-04-11 00:28 | XR ---
EXAM: XR Chest, 1 View CLINICAL HISTORY: ITS.REASON XR Reason: NG TECHNIQUE: Frontal view of the chest. COMPARISON: None. FINDINGS: Patient's body habitus limits the exam. No NG tube is visualized. A right IJ double-lumen/hemodialysis catheter is seen terminating in the projection of the SVC. Lungs: Underexpanded. No consolidation. Pleural space: No pleural effusion. No pneumothorax. Heart: There is cardiomegaly. Mildly prominent peripheral pulmonary vascular markings. Mediastinum: Unremarkable. Bones/joints: Unremarkable. No acute fracture. IMPRESSION: NG tube is not seen. An appropriately place a right IJ hemodialysis catheter. Cardiomegaly. .
[2024-04-11 00:33] VITALS: BP 92/58; PULSE 99; TEMP 99.8
== END 2024-04-11 00:56 | disposition other institution (70) ==
LOC: EC 17:40
DX: K92.2 Gastrointestinal hemorrhage, unspecified (principal); J44.1 Chronic obstructive pulmonary disease with (acute) exacerbation; I50.9 Heart failure, unspecified; N18.6 End stage renal disease; R41.82 Altered mental status, unspecified; I48.91 Unspecified atrial fibrillation; Z99.2 Dependence on renal dialysis
CPT/HCPCS: 51798; 36415; 94640; 36600; 93005; 86900; 86901; 83880; 80053; 84443; 82140; 82805; 83605; 83735; 84100; 84484; 85025; 85610; 85730; 86850; 86920; 82272; 87636; 71046; 70450; 74176; 99291; 96365; 96367; 96368; 96375; J0696; J0131; J1741; J2470; 87040